=== PATIENT | female | born 1945 | race Caucasian/White ===

== ENCOUNTER 2018-04-07 20:20 | Emergency (ER) | payer SELFPAY ==
--- NOTE | 2018-04-07 20:56 | RAD REPORT ---
EXAM DESCRIPTION: CT - Ct Stroke Brain Wo Cont - 04/07/2018 8:50 pm CLINICAL HISTORY: NUMBNESS CVA symptomology. COMPARISON: No comparisons TECHNIQUE: All CT scans are performed using dose optimization technique as appropriate and may inclu de automated exposure control or mA/KV adjustment according to patient size. FINDINGS: No intracranial hemorrhage, hydrocephalus or extra-axial fluid collection.Mild generalized brain atrophy is present with mild periventricular and deep white matter chronic microvascular ische ignacia changes.No areas of brain edema or evidence of midline shift. Mild mucoperiosteal thickening affects both maxillary antra. The paranasal sinuses and mastoids are o therwise clear. The calvarium is intact. IMPRESSION: No acute intracranial abnormality.
[2018-04-07 21:14] LABS: Absolute Lymphocytes (CBC) 2.4 K/uL (0.7-4.9); Absolute Monocytes 0.6 K/uL (0.1-1.3); Absolute Neutrophil 4.1 K/uL (1.8-8.0); Basophils % 1.1 % (0-1.3); Eosinophils % 1.9 % (0-4.4); Hematocrit 37.9 % (36.0-45.0); Lymphocytes % 33.4 % (15.3-44.8); MPV 8.5 fL (7.6-11.3); Monocytes % 7.6 % (3.3-12.3); RBC Red Blood Cell Count 4.31 M/uL (3.86-4.86)
[2018-04-07 21:28] LABS: ALT/SGPT 24 U/L (12-78); AST/SGOT 24 U/L (15-37); Albumin 3.3 g/dL (3.4-5.0); Alkaline Phosphatase 86 U/L (45-117); Amylase Level 55 U/L (25-115); BUN Blood Urea Nitrogen 15 mg/dL (7-18); Bicarbonate 29 mmol/L (21-32); Bilirubin Direct 0.1 mg/dL (0-0.2); Bilirubin Total 0.6 mg/dL (0.2-1.0); Glucose Level 124 mg/dL (74-106); Lipase 105 U/L (73-393); Potassium 4.3 mmol/L (3.5-5.1); Protein, Total 7.4 g/dL (6.4-8.2); Sodium Level 143 mmol/L (136-145); Troponin (Emerg Dept Use Only) < 0.02 ng/mL (0.0-0.045)
--- NOTE | 2018-04-07 21:34 | RAD REPORT ---
EXAM DESCRIPTION: RAD - Chest Single View - 04/07/2018 9:00 pm CLINICAL HISTORY: numbness Chest pain. COMPARISON: Chest Single View dated 11/05/2016 FINDINGS: Portable technique limits examination quality. The lungs are grossly clear. The heart is normal in size. No displaced fractures. IMPRESSION: No acute intrathoracic process suspected.
[2018-04-07 21:35] LABS: Protime INR 0.97
--- NOTE | 2018-04-07 22:04 | EDPHYS ---
Physician Documentation [facility] Name: Cheyenne Gomez Age: 72 yrs Sex: Female : 1945 Arrival Date: 04/07/2018 Time: 20:24 Bed 15 Private MD: ED Physician Mendy Mcdonnell HPI: 04/07 20:57 This 72 yrs old Female presents to ER via Unassigned with complaints of Eye ma2 Problem, Numbness Of Face. 20:57 started seeing floaters in right eye x 1 hour, has had this before, has headache ma2 gradual mild similar to old headaches before.. has had diabetic retinopathy s/p laser therapy twice in the past.. stroke alert called d/t right facial numbness. however patient state she feels numbness around the right eye only no eye pain or facial pain or droop or weakness anywhere else . Onset: The symptoms/episode began/occurred gradually, 1 hour(s) ago. Duration: the symptoms are continuous. Associated signs and symptoms: Pertinent positives: headache, Pertinent negatives: chills, dizziness, ear ache, fever, runny nose. Severity of symptoms: At their worst the symptoms were mild in the emergency department the symptoms are unchanged. The patient has experienced similar episodes in the past. 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 - Social history:: Patient/guardian denies using alcohol, street drugs, The patient lives with family, Smoking status: Patient/guardian denies using tobacco. - Family history:: not pertinent. - Ebola Screening: : No symptoms or risks identified at this time. - Hospitalizations: : No recent hospitalization is reported. ROS: 20:57 Constitutional: Negative for fever, chills, and weight loss, Cardiovascular: Negative ma2 for chest pain, palpitations, and edema, Respiratory: Negative for shortness of breath, cough, wheezing, and pleuritic chest pain, Abdomen/GI: Negative for abdominal pain, nausea, diarrhea, and constipation. 20:57 MS/extremity: Positive for 20:57 Neuro: Positive for headache, Negative for altered mental status, dizziness, gait disturbance, hearing loss, loss of consciousness, numbness, seizure activity, visual changes, weakness. 20:57 All other systems are negative. Exam: 20:57 Visual Acuity: Visual acuity is within normal limits. ma2 20:57 Constitutional: This is a well developed, well nourished patient who is awake, alert, and in no acute distress. Head/Face: Normocephalic, atraumatic. Chest/axilla: Normal chest wall appearance and motion. Nontender with no deformity. No lesions are appreciated. Cardiovascular: Regular rate and rhythm with a normal S1 and S2. No gallops, murmurs, or rubs. Normal PMI, no JVD. No pulse deficits. Respiratory: Lungs have equal breath sounds bilaterally, clear to auscultation and percussion. No rales, rhonchi or wheezes noted. No increased work of breathing, no retractions or nasal flaring. Abdomen/GI: Soft, non-tender, with normal bowel sounds. No distension or tympany. No guarding or rebound. No evidence of tenderness throughout. Back: No spinal tenderness. No costovertebral tenderness. Full range of motion. MS/ Extremity: Pulses equal, no cyanosis. Neurovascular intact. Full, normal range of motion. Neuro: Awake and alert, GCS 15, oriented to person, place, time, and situation. Cranial nerves II-XII grossly intact. Motor strength 5/5 in all extremities. Sensory grossly intact. Cerebellar exam normal. Normal gait. Vital Signs: 20:25 BP 188 / 102; Pulse 100; Resp 16; Temp 98.6(O); Pulse Ox 96% on R/A; Weight 99.79 kg jb4 (R); Pain 2/10; 21:30 BP 158 / 86; Pulse 87; Resp 16; Pulse Ox 96% on R/A; jb4 22:24 BP 160 / 73; Pulse 74; Resp 16; Pulse Ox 98% on R/A; jb4 NIH Stroke Scale Scores: 20:30 NIHSS Score: 1 jb4 MDM: 20:55 Patient medically screened. ma2 20:57 Differential diagnosis: dd includes diabetic retinopathy, vitrous hemorrhage vs retinal ma2 detachment.. unlikely cluster headache.. discussed with dr. calvo opthalmologist who was here seeing another patient, who recommends seeing here tomorrow at 7 am at the office. 21:59 Differential diagnosis:. Differential diagnosis:. Data reviewed: vital signs, nurses ma2 notes, lab test result(s), radiologic studies. Counseling: I had a detailed discussion with the patient and/or guardian regarding: the historical points, exam findings, and any diagnostic results supporting the discharge/admit diagnosis, the presence of at least one elevated blood pressure reading (>120/80) during this emergency department visit, the need for outpatient follow up. Physician consultation: Lolis London MD discharges patient from the emergency department, want to see ptn in clinic in 10 hrs scheduled at 7 am . 04/07 20:56 Order name: Amylase, Serum wy2 04/07 20:56 Order name: Hepatic Function wy2 04/07 20:56 Order name: Lipase wy2 04/07 20:56 Order name: Troponin (emerg Dept Use Only) wy2 04/07 20:56 Order name: Basic Metabolic Panel wy2 04/07 20:56 Order name: CBC with Diff wy2 04/07 20:56 Order name: Protime (+inr); Complete Time: 21:49 ma2 04/07 20:56 Order name: Ptt, Activated; Complete Time: 21:49 wy2 04/07 20:57 Order name: Amylase Level; Complete Time: 21:49 EDMS 04/07 20:57 Order name: Liver (Hepatic) Function; Complete Time: 21:49 EDMS 04/07 20:57 Order name: Lipase; Complete Time: 21:49 EDMS 04/07 20:57 Order name: Troponin (Emerg Dept Use Only); Complete Time: 21:49 EDMS 04/07 20:57 Order name: Basic Metabolic Panel; Complete Time: 21:49 EDMS 04/07 20:57 Order name: CBC with Automated Diff; Complete Time: 21:49 EDMS 04/07 20:44 Order name: CT Stroke Brain w/o Contrast; Complete Time: 21:49 4 04/07 20:56 Order name: Chest Single View XRAY - STROKE; Complete Time: 21:49 2 04/07 20:56 Order name: EKG; Complete Time: 20:57 ma2 04/07 20:56 Order name: Accucheck; Complete Time: 20:58 ma2 04/07 20:56 Order name: Cardiac monitoring; Complete Time: 20:58 ma2 04/07 20:56 Order name: EKG - Nurse/Tech; Complete Time: 20:58 wy2 04/07 20:56 Order name: IV Saline Lock; Complete Time: 20:59 ma2 04/07 20:56 Order name: Labs collected and sent; Complete Time: 20:59 ma2 04/07 20:56 Order name: NPO; Complete Time: 20:59 ma2 04/07 20:56 Order name: O2 Per Protocol; Complete Time: 20:59 ma2 04/07 20:56 Order name: O2 Sat Monitoring; Complete Time: 20:59 wy2 04/07 20:56 Order name: Stroke Swallow Screen; Complete Time: 20:59 ma2 Administered Medications: No medications were administered Point of Care Testing: Blood Glucose: 20:25 Blood Glucose: 118 mg/dL; jb4 Ranges: Critical Glucose Levels:Adult <50 mg/dl or >400 mg/dl <40 mg/dl or >180 mg/dl Disposition: 04/07/18 22:02 Discharged to Home. Impression: Abnormal results of function studies of eye. - Condition is Stable. - Medication Reconciliation Form, Thank You Letter, Antibiotic Education, Prescription Opioid Use form. - Follow up: Lolis London MD; When: Tomorrow; Reason: Continuance of care. - Notes: you are scheduled to see dr. Garvey eye doctor at 7 am tomorrow NIH Stroke Scale - NIH Stroke Score Date: 04/07/2018 Time: 20:30 Total Score = 1 1a. Level of Consciousness (LOC) - 0(Alert) 1b. Level of Consciousness (LOC) (Year \T\ Age) - 0(Both) 1c. LOC Commands (Open \T\ Closes Eyes/[employer]) - 0(Both) 2. Best Gaze (Lateral Gaze Paresis) - 0(Normal) 3. Visual Field Loss - 0(No visual loss) 4. Facial Palsy - 0(Normal) 5a. Left Arm: Motor (10-second hold) - 0(No drift) 5b. Right Arm: Motor (10-second hold) - 0(No drift) 6a. Left Leg: Motor (5-second hold - always test supine) - 0(No drift) 6b. Right Leg: Motor (5-second hold - always test supine) - 0(No drift) 7. Limb Ataxia (finger/nose \T\ heel/chanel - test with eyes open) - 0(Absent) 8. Sensory Loss (pinprick arms/legs/face) - 1(Mild to moderate loss) 9. Best Language: Aphasia (description/naming/reading) - 0(No aphasia) 10. Dysarthria (speech clarity - read or repeat words) - 0(Normal) 11. Extinction and Inattention (visual/tactile/auditory/spatial/personal) - 0(No abnormality) Initials: jbJohanna Signatures: Dispatcher [employer] Wei Aguilar RN RN jb4 Mendy Mcdonnell MD MD ma2 Corrections: (The following items were deleted from the chart) 22:26 22:02 04/07/2018 22:02 Discharged to Home. Impression: Abnormal results of jb4 function studies of eye. Condition is Stable. Forms are Medication Reconciliation Form, Thank You Letter, Antibiotic Education, Prescription Opioid Use. Follow up: Lolis London; When: Tomorrow; Reason: Continuance of care. ma2
--- NOTE | 2018-04-07 22:04 | ER ---
Nurse's Notes [facility] Name: Cheyenne Gomez Age: 72 yrs Sex: Female : 1945 Arrival Date: 04/07/2018 Time: 20:24 Bed 15 Private MD: Diagnosis: Abnormal results of function studies of eye Presentation: 04/07 20:25 Presenting complaint: Patient states: I had a blood vessel pop in my eye and now I have jb4 had pain in my right eye and numbness under my right eye. 20:25 Transition of care: patient was not received from another setting of care. Onset of jb4 symptoms was April 07, 2018 at 19:35. Risk Assessment: Do you want to hurt yourself or someone else? Patient reports no desire to harm self or others. Initial Sepsis Screen: Does the patient meet any 2 criteria? HR > 90 bpm. Yes Does the patient have a suspected source of infection? No. Patient's initial sepsis screen is negative. Care prior to arrival: None. 20:25 Method Of Arrival: Wheelchair jb4 20:25 Acuity: KYLER 2 jb4 Triage Assessment: 20:25 General: Appears in no apparent distress. comfortable, Behavior is calm, cooperative, jb4 appropriate for age. Pain: Complains of pain in right eye Pain does not radiate. Pain currently is 2 out of 10 on a pain scale. EENT: No deficits noted. Neuro: Level of Consciousness is awake, alert, obeys commands, Oriented to person, place, time, situation, Director Pharmacology are equal bilaterally Moves all extremities. Full function Gait is unsteady, Speech is normal, Facial symmetry appears normal, Pupils are PERRLA, Sensation is lessened on the left side of the body.. Cardiovascular: Patient's skin is warm and dry. Rhythm is sinus rhythm. Respiratory: Airway is patent Respiratory effort is even, unlabored, Respiratory pattern is regular, symmetrical. GI: No signs and/or symptoms were reported involving the gastrointestinal system. : No signs and/or symptoms were reported regarding the genitourinary system. Derm: Skin is intact, Skin is pink, warm \T\ dry. Musculoskeletal: Circulation, motion, and sensation intact. Reports numbness in under right eye. 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 - Social history:: Patient/guardian denies using alcohol, street drugs, The patient lives with family, Smoking status: Patient/guardian denies using tobacco. - Family history:: not pertinent. - Ebola Screening: : No symptoms or risks identified at this time. - Hospitalizations: : No recent hospitalization is reported. Screenin:25 Abuse screen: Denies threats or abuse. Nutritional screening: No deficits noted. jb4 Tuberculosis screening: No symptoms or risk factors identified. Fall Risk IV access (20 points). Gait- Impaired (20 pts.). Total Kramer Fall Scale indicates Low Risk Score (25-44 pts). Fall prevention measures have been instituted. Side Rails Up X 2 Placed close to Nursing Station Frequent Obs/Assesments occuring Family Present and informed to notify staff if they need to leave bedside. 20:40 The patient passed the bedside swallow screening. Oral medications may be given as jb4 ordered. Contact Physician for further diet orders. Assessment: 20:25 General: See triage assessment.. jb4 21:30 Reassessment: Patient appears in no apparent distress at this time. Patient and/or jb4 family updated on plan of care and expected duration. Pain level reassessed. Patient is alert, oriented x 3, equal unlabored respirations, skin warm/dry/pink. Cardiovascular: Patient's skin is warm and dry. Rhythm is sinus rhythm. Respiratory: Airway is patent Respiratory effort is even, unlabored, Respiratory pattern is regular, symmetrical. 22:24 Reassessment: Patient appears in no apparent distress at this time. Patient and/or jb4 family updated on plan of care and expected duration. Pain level reassessed. Patient is alert, oriented x 3, equal unlabored respirations, skin warm/dry/pink. Discussed, D/c, F/u with pt and pt's , denies questions or concerns. Vital Signs: 20:25 BP 188 / 102; Pulse 100; Resp 16; Temp 98.6(O); Pulse Ox 96% on R/A; Weight 99.79 kg jb4 (R); Pain 2/10; 21:30 BP 158 / 86; Pulse 87; Resp 16; Pulse Ox 96% on R/A; jb4 22:24 BP 160 / 73; Pulse 74; Resp 16; Pulse Ox 98% on R/A; jb4 NIH Stroke Scale Scores: 20:30 NIHSS Score: 1 jb4 ED Course: 20:24 Patient arrived in ED. ag3 20:25 Arm band placed on left wrist. EKG completed in triage. Results shown to MD. EKG jb4 completed in triage. Results shown to MD. EKG completed in triage. Results shown to MD. 20:25 Patient has correct armband on for positive identification. Placed in gown. Bed in low jb4 position. Call light in reach. residential monitor on. Pulse ox on. NIBP on. 20:27 Wei Fagan RN is Primary Nurse. jb4 20:35 Initial lab(s) drawn, by ED staff, sent to lab. Inserted saline lock: 20 gauge in right jb4 antecubital area, using aseptic technique. Blood collected. 20:49 Mendy Mcdonnell MD is Attending Physician. ma2 20:50 CT Stroke Brain w/o Contrast In Process Unspecified. EDMS 21:00 Chest Single View XRAY - STROKE In Process Unspecified. EDMS 21:05 Triage completed. jb4 22:01 Lolis London MD is Referral Physician. ma2 22:24 No provider procedures requiring assistance completed. IV discontinued, intact, jb4 bleeding controlled. Administered Medications: No medications were administered Point of Care Testing: Blood Glucose: 20:25 Blood Glucose: 118 mg/dL; jb4 Ranges: Outcome: 22:02 Discharge ordered by . ma2 22:24 Discharged to home via wheelchair, with family. jb4 22:24 Condition: stable 22:24 Discharge instructions given to patient, family, Instructed on discharge instructions, follow up and referral plans. Demonstrated understanding of instructions, follow-up care. 22:26 Patient left the ED. jb4 NIH Stroke Scale - NIH Stroke Score Date: 04/07/2018 Time: 20:30 Total Score = 1 1a. Level of Consciousness (LOC) - 0(Alert) 1b. Level of Consciousness (LOC) (Year \T\ Age) - 0(Both) 1c. LOC Commands (Open \T\ Closes Eyes/[employer]) - 0(Both) 2. Best Gaze (Lateral Gaze Paresis) - 0(Normal) 3. Visual Field Loss - 0(No visual loss) 4. Facial Palsy - 0(Normal) 5a. Left Arm: Motor (10-second hold) - 0(No drift) 5b. Right Arm: Motor (10-second hold) - 0(No drift) 6a. Left Leg: Motor (5-second hold - always test supine) - 0(No drift) 6b. Right Leg: Motor (5-second hold - always test supine) - 0(No drift) 7. Limb Ataxia (finger/nose \T\ heel/chanel - test with eyes open) - 0(Absent) 8. Sensory Loss (pinprick arms/legs/face) - 1(Mild to moderate loss) 9. Best Language: Aphasia (description/naming/reading) - 0(No aphasia) 10. Dysarthria (speech clarity - read or repeat words) - 0(Normal) 11. Extinction and Inattention (visual/tactile/auditory/spatial/personal) - 0(No abnormality) Initials: jb4 Signatures: Dispatcher [employer] Wei Aguilar, RN RN jb4 Mendy Mcdonnell MD MD ma2 Tisha Rosenberg ag3
[2018-04-07 23:00] VITALS: TEMP 98.6
[2018-04-07 23:03] VITALS: BP 160/73; O2SAT 98
--- NOTE | 2018-04-08 06:57 | EKG ---
Test Date: 2018-04-07 Test Time: 21:06:13 Rehabilitation Therapist: RR MEASUREMENT RESULTS: Intervals: Rate: 90 NH: 162 QRSD: 76 QT: 380 QTc: 464 [place]: P: 33 NH: 162 QRS: -38 T: 54 INTERPRETIVE STATEMENTS: Normal sinus rhythm Left axis deviation Inferior infarct, age undetermined Abnormal ECG Compared to ECG 12/23/2016 23:00:19 Left-axis deviation now present Myocardial infarct finding now present Atrial premature complex(es) no longer present Electronically Signed On 04-08-18 06:56:31 [employer] ADMINISTRATOR by Marcus Tucker
== END 2018-04-07 22:26 | disposition home or self-care (01) ==
LOC: ER 20:20
DX: R94.118 Abnormal results of other function studies of eye (principal); E11.9 Type 2 diabetes mellitus without complications; E78.5 Hyperlipidemia, unspecified; F32.9 Major depressive disorder, single episode, unspecified; Z79.4 Long term (current) use of insulin
CPT/HCPCS: 36415; 70450; 71045; 80048; 80076; 82150; 82962; 83690; 84484; 85025; 85610; 85730; 93005; 99284

== ENCOUNTER 2021-11-22 23:22 | Inpatient (IN) | payer OTHER ==
--- OUTSIDE RECORDS SUMMARY | 2021-11-22 23:27 | XMS REPORT | Continuity of Care Document ---
:[address] [facility] t Address [address] [place] [address] Care Team Providers Name Role Phone Felicia Worthington MD Primary Care Physician Felicia Worthington MD Attending Clinician Gay Alexandre Attending Clinician Unavailable Petty Calloway MD Attending Clinician FELICIA WORTHINGTON Admitting Clinician Unavailable Payers Payer Name Policy Type Policy Number Effective Date Expiration Date S ource Problems Condition Condition Condition Status Onset Resolution Last Treating Co mments Source Name Details Category Date Date Treatment Clinician Date Diverticul Diverticul Disease Active U nivers a of colon a of colon 8-24 it y of 00:00: [address] Vaginal Vaginal Disease Active [facility] yeast yeast 8-24 [place] [address] [place] [address] Chronic Chronic Disease Active Univers allergic allergic 5-11 ity of rhinitis rhinitis 00:00: [address] Multiple Multiple Disease Active Unive rs adenomatou adenomatou 2-09 it y of s polyps s polyps 00:00: [address] Obesity Obesity Disease Active Univers (BMI (BMI 2-09 ity of 30-39.9) 30-39.9) 00:00: [place] 00 Medical Branch Status Status Disease Active Univers post right post right 2 it y of hemicolect hemicolect [place] tr[place] tr[place] 00 Medical Branch Polyp, Polyp, Disease Active Univers colonic colonic 12-18 ity of 00:00: 00 Medical Branch Polyp of Polyp of Disease Active Overview: [place] colon, colon, 9 Formattin ity of unspecifie unspecifie 00:00: g of this [place] d part of d part of 00 note Medi evetr colon, colon, might be Branch unspecifie unspecifie different d type d type from the original. Added automatic ally from request for surgery [id number] History of History of Disease Active Overview : Univers colon colon 09-28 Formattin ity of polyps polyps 00:00: g of this [place] 00 note Medical might be Branch different from the original. 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 27 ity of depression depression 00:00: [place] 00 [place] Irregular Irregular Disease Active Uni vers heart beat heart beat 08-23 it y of 00:00: Medical Branch Premature Premature Disease Active Uni vers ventricula ventricula 08-23 it y of r beat r beat 00:00: 00 Medical Branch Hypomagnes Hypomagnes Disease Active U nivers emia emia 5-27 ity of 00:00: Medical Branch Diabetic Diabetic Disease Active Unive rs polyneurop polyneurop 5-20 it y of athy athy 00:00: [place] associated associated 00 Me dical with type with type Bran ch 2 diabetes 2 diabetes mellitus mellitus Grief Grief Disease Active Univers 4-22 ity of 00:00: [place] [facility] Abnormalit Abnormalit Disease Active U nivers y of gait y of gait -22 ity of 00:00: [place] 00 Medical Branch Other Other Disease Active Univers specified specified 4- ity of extrapyram extrapyram 00:00: [place] idal and idal and 00 Medica l movement movement Branch disorders disorders Senile Senile Disease Active Univers osteoporos osteoporos 4-22 it y of is is 00:00: [place] 00 Medical Branch Dyslipidem Dyslipidem Disease Active U ulises ia ia 8-17 ity of 00:00: [place] 00 Medical Branch Panic Panic Disease Active 2018-03 Univers attack attack 2-11 ity of 00:00: [place] 00 Medical Branch Diabetic Diabetic Disease Active 2018-03 Overview: [place] eye exam eye exam 2-04 Formattin ity of 00:00: g of this [place] 00 note Medical might be Branch different from the original. Added automatic ally from request for surgery [id number] Type 2 Type 2 Disease Active 2018-03 Univers diabetes diabetes 130 ity of mellitus mellitus 00:00: [place] with with 00 Medical complicati complicati Br anch on, with on, with long-term long-term current current use of use of insulin insulin Hyperlipid Hyperlipid Disease Active 2018-03 U ulises emia, emia, 130 ity of unspecifie unspecifie 00:00: [place] d d 00 Medical hyperlipid hyperlipid Br anch emia type emia type Essential Essential Disease Active 2018-03 Uni vers hypertensi hypertensi 30 it y of on on 00:00: [place] 00 Medical Branch Depression Depression Disease Active 2018-03 U ulises , , 130 ity of unspecifie unspecifie 00:00[place] d 00 Medical depression depression Br anch type type Need for Need for Disease Active 2018-03 Unive rs influenza influenza -30 ity of vaccinatio vaccinatio 00:00[place] 00 Medical Branch Need for Need for Disease Active 2018-03 Unive rs 23-polyval 23-polyval 30 it y of ent ent 00:00: [place] pneumococc pneumococc 00 Me dical al al Branch polysaccha polysaccha ride ride vaccine vaccine Breast Breast Disease Active 2018-03 Univers cancer cancer 1-30 ity of screening screening 00:00: [place] 00 Medical mammogram mammogram Bran ch Need for Need for Disease Active 2018-03 Unive rs hepatitis hepatitis 30 ity of C C 00:00: [place] screening screening 00 Medi evert test test Branch Allergies, Adverse Reactions, Alerts Allergy Allergy Status Severity Reaction(s) Onset Inactive Treating Comm ents Source Name Type Date Date Clinician Morphine Propensi Active Other - See U nivers ty to comments 12-20 ity of adverse 00:00: [place] reaction 00 Medical s Branch No Known DA Active [facility] [place] 00:00: [address] No Known DA Active U [facility] Allergie 09-14 [place] 00:00: [address] Social History Social Habit Start Date Stop Date Quantity Comments Source History SDOH University o f Alcohol Std [place] Medical Drinks Branch History SDOH University o f Alcohol Binge [place] Medic al Branch History SDCA University o f Alcohol Comment [place] Med ical Branch Tobacco use and 2021-11-20 2021-11-20 Smokeless tobacco Un iversity of exposure 00:00:00 00:00:00 non-user [facility] Alcohol intake 2021-11-20 2021-11-20 Lifetime University of 00:00:00 00:00:[address] non-dr[address] [facility] (finding) Branch Exposure to 2021-10-28 2021-11-07 Not sure [facility] SARS-CoV-2 00:00:00 10:19:00 [facility] (event) Branch History SDOH 2018-09-08 2018-09-08 1 University o f Alcohol Frequency 00:00:00 00:00:00 [facility] edical [place] Sex [birth year] Universit y of 00:00:00 00:00:00 [facility] Smoking Status Start Date Stop Date Source Never smoked tobacco [facility] Medications Ordered Filled Start Stop Current Ordering Indication Dosage Frequency Signature Comments Components Source Medication Medication Date Date Medication? Clinician (SIG) Name Name fluconazole Yes [id number] 200mg Take 1 Univers (DIFLUCAN) 8-24 tablet by ity of 200 mg 00:00: mouth in [place] tablet 00 the Medical morning. Branch fluconazole Yes [id number] 200mg Take 1 Univers (DIFLUCAN) 8-24 tablet by ity of 200 mg 00:00: mouth in [place] tablet 00 the Medical morning. Branch LEVEMIR Yes [id number] 50U INJECT 50 U nivers FLEXTOUCH 8-19 UNITS ity of U-100 00:00: UNDER THE [place] INSULN 100 00 SKIN 2 Medical unit/mL (3 (TWO) Branch mL) TIMES injection DAILY WITH MEALS. LEVEMIR Yes [id number] 50U INJECT 50 U nivers FLEXTOUCH 8-19 UNITS ity of U-100 00:00: UNDER THE [place] INSULN 100 00 SKIN 2 Medical unit/mL (3 (TWO) Branch mL) TIMES injection DAILY WITH MEALS. phenazopyri Yes Take by Uni vers dine HCl 8-12 mouth. ity of (AZO ORAL) 09:06: [place] [address] Medical Branch calcium Yes 1{tbl} Take 1 Univer s carbonate/v 8-12 tablet by ity of itamin D3 09:06: mouth [place] (VITAMIN 53 daily. Medical D-3 ORAL) Branch multivit-mi Yes 1{tbl} Take 1 [place] n/iron/foli 8-12 tablet by ity of c/lutein 09:06: mouth [place] (CENTRUM 53 daily. Medical SILVER Branch WOMEN ORAL) cyanocobala Yes 1{tbl} Take 1 [place] min, 8-12 tablet by ity of vitamin 09:06: mouth [place] B-12, 53 daily. Medical (VITAMIN Branch B12 ORAL) fluticasone Yes 1{spray Use 1 [place] propionate 8-12 } [place] in ity o f (FLONASE 09:06: each [place] NASAL) 53 nostril Medical daily. Branch loratadine Yes 10mg Take 10 mg U nivers (CLARITIN 8-12 by mouth ity of ORAL) 09:06: daily. As [place] 53 needed Medical Branch aspirin 81 Yes 81mg Take 81 mg U nivers mg EC 8-12 by mouth ity of tablet 09:06: in the [place] 53 morning. Medical Branch FIBER Yes 1{tbl} Take 1 Univers CHOICE ORAL 8-12 tablet by ity of 09:06: mouth. [place] [address] Medical Branch phenazopyri Yes Take by Uni vers dine HCl 8-12 mouth. ity of (AZO ORAL) 09:06: [place] [address] Medical Branch calcium Yes 1{tbl} Take 1 Univer s carbonate/v 8-12 tablet by ity of itamin D3 09:06: mouth [place] (VITAMIN 53 daily. Medical D-3 ORAL) Branch multivit-mi Yes 1{tbl} Take 1 [place] n/iron/foli 8-12 tablet by ity of c/lutein 09:06: mouth [place] (CENTRUM 53 daily. Medical SILVER Branch WOMEN ORAL) cyanocobala Yes 1{tbl} Take 1 [place] min, 8-12 tablet by ity of vitamin 09:06: mouth [place] B-12, 53 daily. Medical (VITAMIN Branch B12 ORAL) fluticasone Yes 1{spray Use 1 [place] propionate 8-12 } [place] in ity o f (FLONASE 09:06: each [place] NASAL) 53 nostril Medical daily. Branch loratadine Yes 10mg Take 10 mg U nivers (CLARITIN 8-12 by mouth ity of ORAL) 09:06: daily. As [place] 53 needed Medical Branch aspirin 81 Yes 81mg Take 81 mg U nivers mg EC 8-12 by mouth ity of tablet 09:06: in the [place] 53 morning. Medical Branch FIBER Yes 1{tbl} Take 1 Univers CHOICE ORAL 8-12 tablet by ity of 09:06: mouth. [place] [address] Medical Branch GABAPENTIN 0 Yes [id number] TAKE 1 Univers 100 mg 7-15 CAPSULE BY ity of capsule 00:00: MOUTH [place] 00 THREE Medical TIMES A Branch DAY GABAPENTIN 0 Yes [id number] TAKE 1 Univers 100 mg 7-15 CAPSULE BY ity of capsule 00:00: MOUTH [place] 00 THREE Medical TIMES A Branch DAY LISINOPRIL- 0 Yes [id number] TAKE 1 Univers HYDROCHLORO 6-02 TABLET BY ity of THIAZIDE 00:00: MOUTH [place] 20-25 mg 00 EVERY DAY Medica l per tablet Branch FLUOXETINE 2021-0 Yes [id number] TAKE 1 Uni vers 20 mg 6-02 TABLET BY ity of tablet 00:00: MOUTH [place] 00 EVERY DAY Medical Branch LISINOPRIL- 0 Yes [id number] TAKE 1 Univers HYDROCHLORO 6-02 TABLET BY ity of THIAZIDE 00:00: MOUTH [place] 20-25 mg 00 EVERY DAY Medica l per tablet Branch FLUOXETINE 2022-0 Yes [id number] TAKE 1 Uni vers 20 mg 6-02 TABLET BY ity of tablet 00:00: MOUTH [place] 00 EVERY DAY Medical Branch sodium,pota 2021-0 Yes [id number] Take as Univers ssium,mag 5-02 directed ity of sulfates 00:00: [place] 17.5-3.13-1 00 Medical .6 gram Branch sodium,pota 2021-0 Yes [id number] Take as Univers ssium,mag 5-02 directed ity of sulfates 00:00: [place] 17.5-3.13-1 00 Medical .6 gram Branch metformin 2021-0 Yes [id number] 1000mg Take 2 Univers ER 500 mg 2-09 tablets by ity of 24 hr 00:00: mouth 2 [place] tablet 00 (two) Medical times Branch daily with meals. insulin 2021-0 Yes [id number] 10U inject Univ ers aspart 2- 10-30 ity of U-100 00:00: Units [place] (NOVOLOG 00 under the Medica l FLEXPEN skin 3 Branch U-100 (three) INSULIN) times 100 unit/mL daily (3 mL) before injection meals. pravastatin 2021-0 Yes [id number] 20mg Take 1 Univers 20 mg 2-09 tablet by ity of tablet 00:00: mouth at [place] 00 bedtime. Medical Branch amLODIPine 2021-0 Yes [id number] 5mg Take 1 U nivers 5 mg tablet 2-09 tablet by ity of 00:00: mouth [place] 00 daily. Medical Branch metformin 2021-0 Yes [id number] 1000mg Take 2 Univers ER 500 mg 2-09 tablets by ity of 24 hr 00:00: mouth 2 [place] tablet 00 (two) Medical times Branch daily with meals. insulin 2021-0 Yes [id number] 10U inject Univ ers aspart 2- 10-30 ity of U-100 00:00: Units [place] (NOVOLOG 00 under the Medica l FLEXPEN skin 3 Branch U-100 (three) INSULIN) times 100 unit/mL daily (3 mL) before injection meals. pravastatin 2021-0 Yes [id number] 20mg Take 1 Univers 20 mg 2-09 tablet by ity of tablet 00:00: mouth at [place] 00 bedtime. Medical Branch amLODIPine 2021-0 Yes [id number] 5mg Take 1 U nivers 5 mg tablet 2-09 tablet by ity of 00:00: mouth [place] 00 daily. Medical Branch Miscellaneo 2020-03 Yes [id number] Pt [place] [facility] 04-03 requesting ity of Supply Misc 00:00: a rx for [place] 00 Reli On 6 Medical mm x 31 Branch Gauge (15/64" x 0.25 mm). Please provide. For dx E11.9. takes 4 injections of insulin a day. Miscellaneo 2020-03 Yes [id number] Pt [place] [facility] 04-03 requesting ity of Supply Misc 00:00: [place] for [place] 00 Reli On 6 Medical mm x 31 Branch Gauge (15/64" x 0.25 mm). Please provide. For dx E11.9. takes 4 injections of insulin a day. traMADoL 50 Yes [id number] 50mg Take 1 Univ ers mg tablet 9-24 tablet by ity o f 00:00: mouth [place] 00 every 6 Medical (six) Branch hours as needed for Pain (scale 7-10). Indication s: acute pain traMADoL 50 Yes [id number] 50mg Take 1 Univ ers mg tablet 9-24 tablet by ity o f 00:00: mouth [place] 00 every 6 Medical (six) Branch hours as needed for Pain (scale 7-10). Indication s: acute pain blood sugar 2020-0 Yes Use as Univ ers diagnostic 2-05 directed ity o f (ACCU-CHEK 00:00: TID DX: [place] GUIDE) 00 E11.8 Medical strip Branch Blood-Gluco 2020-0 Yes Use as Univ ers se Meter 2-05 directed ity of (ACCU-CHEK 00:00: to check [place] as GUIDE 00 blood Medical GLUCOSE sugar Branch METER) Mis daily DX: E11.8 lancets 2020-0 Yes Use as Univers (ULTRA THIN 2-05 directed ity of LANCETS) 30 00:00: TID DX: [place] as gauge Misc 00 E11.8 Medical Branch blood sugar 2020-0 Yes Use as Univ ers diagnostic 2-05 directed ity o f (ACCU-CHEK 00:00: TID DX: [place] GUIDE) 00 E11.8 Medical strip Branch Blood-Gluco 2020-0 Yes Use as Univ ers se Meter 2-05 directed ity of (ACCU-CHEK 00:00: to check [place] GUIDE 00 blood Medical GLUCOSE sugar Branch METER) Misc daily DX: E11.8 lancets Yes Use as Univers (ULTRA THIN 2-05 directed ity of LANCETS) 30 00:00: TID DX: [place] as gauge Mis 00 E11.8 Medical Branch Betamethaso Yes Apply 2-3g Univers ne Valerate 4-30 to the ity of 0.12 % foam 00:00: affected [place] 00 area Medical 2-4x/daily Branch or as directed. Max 10 g/day Betamethaso Yes Apply 2-3g Univers ne Valerate 4-30 to the ity of 0.12 % foam 00:00: affected [place] area Medical 2-4x/daily Branch or as directed. Max 10 g/day Immunizations Ordered Filled Immunization Date Status Comments [facility] Immunization Name Name Pneumococcal 2021-08-07 Completed University o f Polysaccharide, 00:00:00 [place] Med ical PPSV23 (PNEUMOVAX) Branch Pneumococcal 2021-08-07 Completed University o f Polysaccharide, 00:00:00 [place] Med ical PPSV23 (PNEUMOVAX) Branch SARS-COV-2 COVID-19 2021-01-16 Completed Unive rsity of PFIZER VACCINE 00:00:00 [facility] SARS-COV-2 COVID-19 2021-01-16 Completed Unive rsity of PFIZER VACCINE 00:00:00 [facility] Influenza High Dose 2020-12-01 Completed Unive rsity of 00:00:00 [facility] Influenza High Dose 2020-12-01 Completed Unive rsity of 00:00:00 [facility] SARS-COV-2 COVID-19 2020-06-12 Completed Unive rsity of PFIZER VACCINE 00:00:00 [facility] SARS-COV-2 COVID-19 2020-06-12 Completed Unive rsity of PFIZER VACCINE 00:00:00 [facility] SARS-COV-2 COVID-19 2020-05-22 Completed Unive rsity of PFIZER VACCINE 00:00:00 [facility] SARS-COV-2 COVID-19 2020-05-22 Completed Unive rsity of PFIZER VACCINE 00:00:00 [facility] Influenza High Dose 2020-01-12 Completed Unive rsity of Quad 00:00:00 [facility] Influenza High Dose 2020-01-12 Completed Unive rsity of Quad 00:00:00 [facility] TDAP 2019-02-23 Completed University of 00:00:00 [facility] Influenza High Dose 2019-02-23 Completed Unive rsity of 00:00:00 [facility] Pneumococcal 13 2019-02-23 Completed Universit y of Conjugate, PCV13 00:00:00 [facility] dical (Prevnar 13) Branch TDAP 2019-02-23 Completed University of 00:00:00 [facility] Influenza High Dose 2019-02-23 Completed Unive rsity of 00:00:00 [facility] Pneumococcal 13 2019-02-23 Completed Universit y of Conjugate, PCV13 00:00:00 [facility] dical (Prevnar 13) Branch Vital Signs Vital Name Observation Time Observation Value Comments Source Systolic blood 2021-11-20 18:06:00 132 mm[Hg] Univer sity of pressure [facility] Diastolic blood 2021-11-20 18:06:00 69 mm[Hg] Unive rsity of pressure [facility] Heart rate 2021-11-20 18:04:00 85 /min [facility] Body temperature 2021-11-20 18:04:00 36.94 [facility] Respiratory rate 2021-11-20 18:04:00 18 /min [facility] Body height 2021-11-20 18:04:00 175.3 cm [facility] Body weight 2021-11-20 18:04:00 96.253 kg [facility] BMI 2021-11-20 18:04:00 31.34 kg/m2 [facility] Oxygen saturation in 2021-11-20 18:04:00 97 /min [facility] Arterial blood by [facility] Pulse oximetry Branch Procedures This patient has no known procedures. Encounters Start End Encounter Admission Attending Care Care Encounter Source Date/Time Date/Time Type Type Clinicians Facility Department ID 2021-11-20 2021-11-20 Office Ander CTJOSE [id number] [facility] 13:20:00 13:34:38 Visit Felicia PICKERING [id number] i ty michael JOHNSON [id number] Abhay tolliver PROFESSIO [id number] Ar dical NAL 044 [facility] 2020-09-15 2020-09-15 Outpatient MANUEL Haddad SURG [id number] 11-16 [facility] 04:53:00 04:53:00 Gay [id number] [facility] 2020-08-23 2020-08-23 Telemedici [facility] [id number] 08:26:49 10:17:50 ne Visit Felicia Pickering [id number] [place] [id number] Professio [phone] nal [address] [place] [address] 2020-08-17 2020-08-17 Telephone [facility] [id number] 00:00:00 00:00:00 Petty Pickering [id number] [place] [id number] Professio [phone] [address] Results Test Description Test Time Test Comments Results Result Comments Source GLUCOSE BEDSIDE TESTING 2020-09-15 10:31:00 Test Item Value Reference Range Interpretation Comme nts GLUCOSE BEDSIDE TESTING (test code = GLUBED) 269 MG/DL 60-99 H GLUCOSE BEDSIDE [id number] 08:06:00 Test Item Value Reference Range Interpretation Comments GLUCOSE BEDSIDE TESTING (test code 328 MG/DL 60-99 HH = GLUBED) BASIC METABOLIC [id number] 06:25:00 Test Item Value Reference Range Interpretation Comments SODIUM (test code = 137 MMOL/L 137-145 N NA) POTASSIUM (test code = 4.0 MMOL/L 3.5-5.1 N K) CHLORIDE (test code = 103 MMOL/L 98-107 N CL) CARBON DIOXIDE (test 22 MMOL/L 22-30 N code = CO2) ANION GAP (test code = 16 MMOL/L 14-24 N GAP) GLUCOSE (test code = 445 MG/DL 74-106 HH CALLED TO ALYSSA SAWYER) READBACK ON AT 0621 BY Óscar Benz BLOOD UREA NITROGEN 35 MG/DL 7-17 H (test code = BUN) GLOMERULAR FILTRATION 37 Report ing units: RATE (test code = GFR) ml/mi n/1.73 m2 (Modified MDRD Formula)Referen ce Range: > or = 6 0 ml/min/1.73 m2 CREATININE (test code 1.40 MG/DL 0.52-1.04 H = CREAT) CALCIUM (test code = 9.3 MG/DL 8.4-10.2 N CA) Comments to Installation Superintendent: RN TO COLLECTLIPID PROFILE (CORONARY RISK)2020-09-15 06:25:00 Test Item Value Reference Range Interpretation Comments TRIGLYCERIDES (test 391 MG/DL TRIGLYCE RIDES code = TRIG) REFERENCE RANGE:Normal: < 150 mg/dLBorderline High: 150-199 mg/dLHi gh: 200-499 mg/dLVe ry High: >=500 mg/ dL CHOLESTEROL (test code 175 MG/DL <200 = CHOL) HDL CHOLESTEROL (test 27 MG/DL 40-59 L code = HDL) LIPOPROTEIN LDL (test 90 MG/DL 0-99 N OPTIM AL.........<100 code = LDL) mg/dLNEAR OPTIMAL/ABOVE OPTIMAL........ .100-12 9 mg/dL BORDERL INE HIGH.........13 0-159 mg/dL HIGH.........16 0-189 mg/dL VERY HIGH.........>/ = 190 mg/dL Comments to Installation Superintendent: RN TO [id number] 06:25:00 Test Item Value Reference Range Interpretation Comments MAGNESIUM (test code = MAG) 1.5 MG/DL 1.6-2.3 L Comments to Installation Superintendent: RN TO COLLECTPROTHROMBIN [id number] 06:22:00 Test Item Value Reference Range Interpretation Comments PROTHROMBIN TIME 10.8 SECONDS 9.5-12.7 N PATIENT (test code = PTP) INTERNATIONAL NORMAL 1.0 0.86-1.14 N The INR is to be RATIO (test code = used only for INR) monitoring oral anticoagulantth erap y. INDICATION I NR VALUE ---- ---- ---- -------1. Prophylaxis, de ep venous thrombos is, including high risk surgery. 2.0 - 3.0 2. Prophylaxis, deep venous thrombosis, hip surgery, treatm ent for deep venous thrombosis or pulmonary prevention of systemic emboli sm in patients wit h valvular heart disease, atrial fibrillation, tissue heart va lve, or acute myocar dial infarction. 2.0 - 3.0 3. Beef Grader al prosthesis hear t valves, recurr ent systemic emboli sm. 3.0 - 4.5 Comments to Installation Superintendent: RN TO COLLECTPTT [id number] 06:22:00 Test Item Value Reference Range Interpretation Comments PTT ACTIVATED (test code = APTT) 34.4 SECONDS 25.1-36.5 N Comments to Installation Superintendent: RN TO COLLECTLIPID PROFILE (CORONARY RISK)2020-09-15 06:21:00 Test Item Value Reference Range Interpretation Comments TRIGLYCERIDES (test 391 MG/DL TRIGLYCE RIDES code = TRIG) REFERENCE RANGE:Normal: < 150 mg/dLBorderline High: 150-199 mg/dLHi gh: 200-499 mg/dLVe ry High: >=500 mg/ dL CHOLESTEROL (test code 175 MG/DL <200 = CHOL) HDL CHOLESTEROL (test 27 MG/DL 40-59 L code = HDL) LIPOPROTEIN LDL (test MG/DL 0-99 code = LDL) Comments to Installation Superintendent: RN TO [id number] 06:21:00 Test Item Value Reference Range Interpretation Comments MAGNESIUM (test code = MAG) 1.5 MG/DL 1.6-2.3 L Comments to Installation Superintendent: RN TO COLLECTBASIC METABOLIC [id number] 06:21:00 Test Item Value Reference Range Interpretation Comments SODIUM (test code = 137 MMOL/L 137-145 N NA) POTASSIUM (test code = 4.0 MMOL/L 3.5-5.1 N K) CHLORIDE (test code = 103 MMOL/L 98-107 N CL) CARBON DIOXIDE (test 22 MMOL/L 22-30 N code = CO2) ANION GAP (test code = 16 MMOL/L 14-24 N GAP) GLUCOSE (test code = 445 MG/DL 74-106 HH CALLED TO ALYSSA SAWYER) READBACK ON AT 0621 BY Kwake,Óscar er BLOOD UREA NITROGEN 35 MG/DL 7-17 H (test code = BUN) GLOMERULAR FILTRATION 37 Report ing units: RATE (test code = GFR) ml/mi n/1.73 m2 (Modified MDRD Formula)Referen ce Range: > or = 6 0 ml/min/1.73 m2 CREATININE (test code 1.40 MG/DL 0.52-1.04 H = CREAT) CALCIUM (test code = 9.3 MG/DL 8.4-10.2 N CA) Comments to Installation Superintendent: RN TO COLLECTCBC W/AUTO [id number] 06:05:00 Test Item Value Reference Range Interpretation Comments WHITE BLOOD CELL (test code = 6.0 K/MM3 3.8-9.8 N WBC) RED BLOOD CELL (test code = 3.35 M/MM3 3.58-4.97 L RBC) HEMOGLOBIN (test code = HGB) 10.2 G/DL 11.2-14.9 L HEMATOCRIT (test code = HCT) 30.6 % 33.2-43.5 L MEAN CELL VOLUME (test code = 91 fL 80.7-99.1 N MCV) MEAN CELL HGB (test code = MCH) 30.4 pg 27.0-34.1 N MEAN CELL HGB CONCETRATION 33.3 % 32.2-35.7 N (test code = MCHC) RED CELL DISTRIBUTION WIDTH 15.7 % 12.1-15.2 H (test code = RDW) PLATELET COUNT (test code = 141 K/MM3 129-368 N PLT) MEAN PLATELET VOLUME (test code 10.9 fl 7.4-10.4 H = MPV) NEUTROPHIL % (test code = NT%) 57.4 % 43-75 N IMMATURE GRANULOCYTE % (test 1.2 % 0.0-2.0 N code = IG%) LYMPHOCYTE % (test code = LY%) 27.8 % 14-44 N MONOCYTE % (test code = MO%) 7.8 % 4-13 N EOSINOPHIL % (test code = EO%) 5.0 % 0-6 N BASOPHIL % (test code = BA%) 0.8 % 0-2 N NUCLEATED RBC % (test code = 0.0 % 0-1.0 N NRBC%) NEUTROPHIL # (test code = NT#) 3.47 K/mm3 2.0-7.6 N IMMATURE GRANULOCYTE # (test 0.07 x10 3/uL 0-0.03 H code = IG#) LYMPHOCYTE # (test code = LY#) 1.68 K/mm3 1.0-3.8 N MONOCYTE # (test code = MO#) 0.47 K/mm3 0.1-0.8 N EOSINOPHIL # (test code = EO#) 0.30 K/mm3 0.0-0.2 H BASOPHIL # (test code = BA#) 0.05 K/mm3 0.0-0.2 N NUCLEATED RBC # (test code = 0.00 K/mm3 0.0-0.1 N NRBC#) Comments to Installation Superintendent: RN TO COLLECT
[2021-11-23 00:12] LABS: Absolute Lymphocytes (CBC) 0.7 K/uL (0.7-4.9); Hematocrit 29.9 % (36.0-45.0); Lymphocytes % 4.4 % (15.3-44.8); MCV 89.7 fL (80-100); RBC Red Blood Cell Count 3.33 M/uL (3.86-4.86)
[2021-11-23 00:32] LABS: Albumin 3.4 g/dL (3.4-5.0); Bilirubin Total 1.1 mg/dL (0.2-1.0); Potassium 4.8 mmol/L (3.5-5.1); Protein, Total 7.3 g/dL (6.4-8.2); Troponin High Sensitivity 11.4 pg/mL (<58.9)
[2021-11-23 00:44] LABS: Protime INR 1.14
[2021-11-23 01:54] LABS: Urine Blood 2+ (Negative); Urine Glucose 1+ (Negative); Urine Protein 3+ (Negative); Urine pH 5.5 (5.0-7.0)
[2021-11-23 02:15] LABS: Urine Bacteria Loaded /HPF (<20); Urine Mucus 2+ /HPF (None Seen); Urine RBC <5 /HPF (None Seen)
--- NOTE | 2021-11-23 03:47 | ER ---
Nurse's Notes [facility] Name: Cheyenne Gomez Age: 76 yrs Sex: Female : 1945 Arrival Date: 11/22/2021 Time: 23:28 Bed 8 Private MD: Diagnosis: Pyelonephritis acute;Sepsis without end organ dysfunction;Nausea with vomiting, unspecified Presentation: 11/22 23:30 Chief complaint: EMS states: Pt called EMS for vomiting blood, it was pieces of jb4 cherries. He tried to get out of bed, slipped on the blanket and eased herself to the floor. She had a temp of 100.1, was given 1g of IV tylenol, 300 ml of NS, and 10mg of reglan. Her lungs were CTA prior to medication adminstration, after she developed diminished breath sounds on the right. She has a 20g in the right AC, last bgl was 301. Coronavirus screen: Client presents with at least one sign or symptom that may indicate coronavirus-19. Standard/surgical mask placed on the client. Provider contacted for isolation considerations. Ebola Screen: No symptoms or risks identified at this time. Initial Sepsis Screen: Does the patient meet any 2 criteria? RR > 20 per min. HR > 90 bpm. Yes Does the patient have a suspected source of infection? Yes: Dysuria/Frequency/Urgency/UTI. Risk Assessment: Do you want to hurt yourself or someone else? Patient reports no desire to harm self or others. Onset of symptoms was November 22, 2021. Transition of care: patient was not received from another setting of care. 23:30 Method Of Arrival: EMS: [facility] jb4 23:30 Acuity: KYLER 3 jb4 Historical: - Allergies: 23:40 Codeine; jb4 23:40 Morphine; jb4 - PMHx: 23:40 Depression; Diabetes - NIDDM; Hyperlipidemia; jb4 - PSHx: 23:40 Partial colon removal; colonoscopy; jb4 - Immunization history:: Adult Immunizations up to date. - Social history:: Smoking status: Patient denies any tobacco usage or history of. Screenin:30 Abuse screen: Denies threats or abuse. Nutritional screening: No deficits noted. jb4 Tuberculosis screening: No symptoms or risk factors identified. Fall Risk Fall in past 12 months (25 points). IV access (20 points). Total Kramer Fall Scale indicates High Risk Score (45 or more points). Fall prevention measures have been instituted. Side Rails Up X 2 Placed Close to Nursing Station Frequent Obs/Assessments Occuring Family Present and informed to notify staff if the need to leave the bedside As available patient and family educated on Fall Prevention Program and Strategies. Assessment: 11/23 00:00 General: Appears in no apparent distress. uncomfortable, ill, Behavior is calm, jb4 cooperative, appropriate for age. Pain: Denies pain. Neuro: Level of Consciousness is awake, alert, obeys commands, Oriented to person, place, time, situation. Cardiovascular: Patient's skin is warm and dry. Respiratory: Airway is patent Respiratory effort is even, unlabored, Respiratory pattern is symmetrical, tachypnea. GI: Abdomen is flat, non-distended. Derm: Skin is intact, Skin is pink, warm \T\ dry. Musculoskeletal: Circulation, motion, and sensation intact. Range of motion: intact in all extremities. 01:16 Reassessment: Patient appears in no apparent distress at this time. Patient and/or jb4 family updated on plan of care and expected duration. Pain level reassessed. Patient is alert, oriented x 3, equal unlabored respirations, skin warm/dry/pink. 02:06 Reassessment: Patient appears in no apparent distress at this time. Patient and/or jb4 family updated on plan of care and expected duration. Pain level reassessed. Patient is alert, oriented x 3, equal unlabored respirations, skin warm/dry/pink. Pt back from CT. 03:00 Reassessment: Patient appears in no apparent distress at this time. Patient and/or jb4 family updated on plan of care and expected duration. Pain level reassessed. Patient is alert, oriented x 3, equal unlabored respirations, skin warm/dry/pink. 04:29 Reassessment: Patient appears in no apparent distress at this time. Patient and/or jb4 family updated on plan of care and expected duration. Pain level reassessed. Patient is alert, oriented x 3, equal unlabored respirations, skin warm/dry/pink. Given multiple worm blankets and pillow per pt request. 04:48 Reassessment: Pt vomited imidiately after taking meds, provider notified, see MAR for jb4 orders. 05:19 Reassessment: Patient appears in no apparent distress at this time. Patient and/or jb4 family updated on plan of care and expected duration. Pain level reassessed. Patient is alert, oriented x 3, equal unlabored respirations, skin warm/dry/pink. Pt now resting comfortably in bed. Patient states feeling better. Vital Signs: 11/22 23:30 BP 143 / 58; Pulse 99; Resp 22 A; Temp 99.7; Pulse Ox 99% ; Weight 96.16 kg (R); Height jb4 5 ft. 9 in. (175.26 cm); Pain 0/10; 11/23 01:00 BP 116 / 63; Pulse 91; Resp 16; Pulse Ox 96% on R/A; jb4 02:30 BP 110 / 59; Pulse 83; Resp 24; Pulse Ox 97% ; jb4 03:00 BP 101 / 64; Pulse 81; Resp 19; Pulse Ox 97% on R/A; jb4 04:00 BP 177 / 63; Pulse 83; Resp 21; Temp 98.4(O); Pulse Ox 96% on R/A; jb4 04:39 Temp 99.5(O); jb4 05:19 BP 153 / 61; Pulse 115; Resp 30; Pulse Ox 90% on R/A; jb4 11/22 23:30 Body Mass Index 31.31 (96.16 kg, 175.26 cm) jb4 ED Course: 11/22 23:28 Patient arrived in ED. jb4 23:29 Chuck Jewell DO is Attending Physician. ms3 23:30 Wei Fagan, RN is Primary Nurse. jb4 23:40 Triage completed. jb4 23:43 Arm band placed on right wrist. jb4 11/23 00:15 First set of blood cultures drawn by me. mw1 00:50 Second set of blood cultures drawn by me. mw1 02:26 Abdomen In Process Unspecified. EDMS 03:45 Pardeep Perez is Hospitalizing Provider. ms3 05:22 No provider procedures requiring assistance completed. Patient admitted, IV remains in jb4 place. Administered Medications: 04:04 Drug: Rocephin (cefTRIAXone) 1 grams Route: IV; Rate: calculated rate; Site: right jb4 antecubital; 04:07 Follow up: IV Status: Completed infusion; IV Intake: 10ml jb4 04:48 Drug: Acetaminophen 650 mg Route: PO; jb4 04:48 Follow up: Response: Other; Pt vomited immediately after administration. jb4 04:48 Drug: XANax (alprazolam) Tablet 0.5 mg Route: PO; jb4 04:48 Follow up: Response: Other; Pt vomited immediately after administration. jb4 04:57 Drug: Zofran (Ondansetron) 4 mg Route: IVP; Site: right antecubital; jb4 05:33 Follow up: Response: No adverse reaction; Marked relief of symptoms jb4 05:14 CANCELLED (Physician Discretion): Ibuprofen 800 mg PO once sb3 Medication: 01:16 VIS not applicable for this client. jb4 Intake: 04:07 IV: 10ml; Total: 10ml. jb4 Outcome: 03:46 Decision to Hospitalize by Provider. ms3 05:37 Patient left the ED. jb4 Signatures: Dispatcher [employer] EDMS Wei Fagan RN RN jb4 Carlos Jerome mw1 Chuck Jewell DO DO ms3 Bel Villanueva sb3 Corrections: (The following items were deleted from the chart) 02:49 00:50 First set of blood cultures drawn Second set of blood cultures drawn by nicole gramajo mw1
--- NOTE | 2021-11-23 03:47 | EDPHYS ---
Physician Documentation [facility] Name: Cheyenne Gomez Age: 76 yrs Sex: Female : 1945 Arrival Date: 11/22/2021 Time: 23:28 Bed 8 Private MD: ED Physician Chuck Jewell HPI: 11/23 00:44 This 76 yrs old Female presents to ER via EMS with complaints of nausea and vomiting. ms3 00:44 The patient presents to the emergency department with nausea, vomiting. Onset: The ms3 symptoms/episode began/occurred today. Possible causes: unknown. The symptoms are aggravated by nothing. The symptoms are alleviated by nothing. Associated signs and symptoms: Pertinent positives:. Severity of symptoms: At their worst the symptoms were severe in the emergency department the symptoms have improved. 76-year-old female with past medical history of depression, diabetes, hyperlipidemia presents via [facility] for vomiting. EMS states patient's blood glucose level was 316 on their arrival. A 20-gauge IV was established in the right AC plan 300 mL of normal saline was given, 1 g of Offermev given IV arrival patient's blood glucose had decreased to 301.. Historical: - Allergies: 11/22 23:40 Codeine; jb4 23:40 Morphine; jb4 - PMHx: 23:40 Depression; Diabetes - NIDDM; Hyperlipidemia; jb4 - PSHx: 23:40 Partial colon removal; colonoscopy; jb4 - Immunization history:: Adult Immunizations up to date. - Social history:: Smoking status: Patient denies any tobacco usage or history of. ROS: 11/23 00:44 Constitutional: Negative for fever, and chills. Eyes: Negative for injury, pain, ms3 redness, and discharge, Neck: Negative for injury, pain, and swelling, Cardiovascular: Negative for chest pain, and palpitations. Respiratory: Negative for shortness of breath, cough, wheezing, and pleuritic chest pain. Abdomen/GI: Positive for nausea and vomiting. All other systems are negative. Exam: 00:44 Constitutional: This is a well developed, well nourished patient who is awake, alert, ms3 and in no acute distress. Head/Face: Normocephalic, atraumatic. Neck: Trachea midline, no cervical lymphadenopathy. Supple, full range of motion without nuchal rigidity, or vertebral point tenderness. No Meningismus. Chest/axilla: Normal chest wall appearance and motion. Nontender with no deformity. Cardiovascular: Regular rate and rhythm with a normal S1 and S2. No gallops, murmurs, or rubs. Normal PMI, no JVD. No pulse deficits. Respiratory: Lungs have equal breath sounds bilaterally, clear to auscultation and percussion. No rales, rhonchi or wheezes noted. No increased work of breathing, no retractions or nasal flaring. Abdomen/GI: Soft, non-tender, with normal bowel sounds. No distension or tympany. No guarding or rebound. No evidence of tenderness throughout. Skin: Warm, dry with normal turgor. Normal color with no rashes, no lesions, and no evidence of cellulitis. MS/ Extremity: Pulses equal, no cyanosis. Neurovascular intact. Full, normal range of motion. Neuro: Awake and alert, GCS 15, oriented to person, place, time, and situation. Cranial nerves II-XII grossly intact. Motor strength 5/5 in all extremities. Sensory grossly intact. Cerebellar exam normal. Normal gait. Psych: Awake, alert, with orientation to person, place and time. Behavior, mood, and affect are within normal limits. 02:16 ECG was reviewed by the Attending Physician. ms3 Vital Signs: 11/22 23:30 BP 143 / 58; Pulse 99; Resp 22 A; Temp 99.7; Pulse Ox 99% ; Weight 96.16 kg (R); Height jb4 5 ft. 9 in. (175.26 cm); Pain 0/10; 11/23 01:00 BP 116 / 63; Pulse 91; Resp 16; Pulse Ox 96% on R/A; jb4 02:30 BP 110 / 59; Pulse 83; Resp 24; Pulse Ox 97% ; jb4 03:00 BP 101 / 64; Pulse 81; Resp 19; Pulse Ox 97% on R/A; jb4 04:00 BP 177 / 63; Pulse 83; Resp 21; Temp 98.4(O); Pulse Ox 96% on R/A; jb4 04:39 Temp 99.5(O); jb4 05:19 BP 153 / 61; Pulse 115; Resp 30; Pulse Ox 90% on R/A; jb4 11/22 23:30 Body Mass Index 31.31 (96.16 kg, 175.26 cm) jb4 MDM: 11/22 23:29 Patient medically screened. ms3 11/23 00:44 Differential diagnosis: Nonspecific abd pain, gastritis, cholecystitis, appendicitis, ms3 diverticulitis, viral gastroenteritis, gastroenteritis. 03:46 Data reviewed: vital signs, nurses notes, lab test result(s), radiologic studies, and ms3 as a result, I will admit patient. Counseling: I had a detailed discussion with the patient and/or guardian regarding: the historical points, exam findings, and any diagnostic results supporting the discharge/admit diagnosis, lab results, radiology results, the need for further work-up and treatment in the hospital. ED course: Discussed case with HERMINIO Granda and she accepts on behalf of Dr Perez.. 11/22 23:30 Order name: CBC with Diff; Complete Time: 01:16 ms3 11/22 23:30 Order name: CMP; Complete Time: 01:16 ms3 11/22 23:30 Order name: Lipase; Complete Time: 01:16 ms3 11/22 23:30 Order name: Troponin High Sensitivity; Complete Time: 01:16 ms3 11/23 00:16 Order name: Blood Culture Adult (2) ms3 11/23 00:16 Order name: Lactate; Complete Time: 01:16 ms3 11/22 23:45 Order name: Abdomen EDMS 11/23 00:16 Order name: Protime (+inr); Complete Time: 01:16 ms3 11/23 00:16 Order name: Ptt, Activated; Complete Time: 01:16 ms3 11/23 01:54 Order name: Urine Dipstick-Ancillary; Complete Time: 03:36 EDMS 11/23 01:56 Order name: Urine Microscopic Only; Complete Time: 03:36 ds4 11/23 02:18 Order name: Urine Culture EDMS 11/23 03:51 Order name: SARS RAPID wm 11/22 23:30 Order name: IV Saline Lock; Complete Time: 00:41 ms3 11/22 23:30 Order name: Labs collected and sent; Complete Time: 00:41 ms3 11/22 23:30 Order name: Urine Dipstick-Ancillary (obtain specimen); Complete Time: 01:46 ms3 11/23 00:16 Order name: Accucheck; Complete Time: 00:41 ms3 11/23 00:16 Order name: Cardiac monitoring; Complete Time: 00:41 ms3 11/23 00:16 Order name: EKG - Nurse/Tech; Complete Time: 02:14 ms3 11/23 00:16 Order name: IV Saline Lock - Large Bore; Complete Time: 00:41 ms3 11/23 00:16 Order name: O2 Per Protocol; Complete Time: 00:41 ms3 11/23 00:16 Order name: O2 Sat Monitoring; Complete Time: 00:41 ms3 EC:16 Rate is 85 beats/min. Rhythm is regular. QRS [place] is Normal. [place] interval is normal. QRS ms3 interval is normal. Clinical impression: Normal ECG. Interpreted by me. Reviewed by me. Administered Medications: 04:04 Drug: Rocephin (cefTRIAXone) 1 grams Route: IV; Rate: calculated rate; Site: right jb4 antecubital; 04:07 Follow up: IV Status: Completed infusion; IV Intake: 10ml jb4 04:48 Drug: Acetaminophen 650 mg Route: PO; jb4 04:48 Follow up: Response: Other; Pt vomited immediately after administration. jb4 04:48 Drug: XANax (alprazolam) Tablet 0.5 mg Route: PO; jb4 04:48 Follow up: Response: Other; Pt vomited immediately after administration. jb4 04:57 Drug: Zofran (Ondansetron) 4 mg Route: IVP; Site: right antecubital; jb4 05:33 Follow up: Response: No adverse reaction; Marked relief of symptoms jb4 05:14 CANCELLED (Physician Discretion): Ibuprofen 800 mg PO once sb3 Disposition Summary: 11/23/21 03:46 Hospitalization Ordered Hospitalization Status: Inpatient Admission ms3 Provider: Pardeep Perez ms3 Location: Telemetry/MedSurg (Inpatient) ms3 Condition: Stable ms3 Problem: new ms3 Symptoms: are unchanged ms3 Bed/Room Type: Standard ms3 Room Assignment: 411(11/23/21 04:46) mw Diagnosis - Pyelonephritis acute ms3 - Sepsis without end organ dysfunction ms3 - Nausea with vomiting, unspecified ms3 Forms: - Medication Reconciliation Form ms3 - SBAR form ms3 Signatures: Dispatcher [employer] Teena Tesfaye, RN RN mw Wei Fagan RN RN jb4 Chuck Jewell DO DO ms3 Bel Villanueva PA PA sb3 Corrections: (The following items were deleted from the chart) 00:17 11/22 23:57 Abdomen Pelvis W Con+CT.RAD.BRZ ordered. EDFL EDMS 11/23 04:46 03:46 ms3 mw 05:14 04:53 Ibuprofen 800 mg PO once ordered. sb3 sb3
[2021-11-23] MEDS ORDERED: CEFTRIAXONE 1000 MG/VIAL ONE (04:06)
--- NOTE | 2021-11-23 04:35 | P.HP ---
Certification for Inpatient Patient admitted to: Inpatient With expected LOS: <2 Midnights Patient will require the following post-hospital care: None Practitioner: I am a practitioner with admitting privileges, knowledge of patient current condition, hospital course, and medical plan of care. Services: Services provided to patient in accordance with Admission requirements found in Title 42 Section 412.3 of the Code of Federal Regulations Patient History Date of Service: 11/23/21 Reason for admission: Pyelonephritis History of Present Illness: Patient is a 76 year-old female with history of insulin dependent type 2 diabetes, hypertension, and hyperlipidemia who presented to the ED via EMS with nausea, vomiting, fever, chills. Patient states that she went to urgent care 2 days ago for urinary symptoms and got a prescription for fluconazole. She was tachycardic and tachypneic upon arrival to ED. Her labs are significant for WBC 15, Na 133, glucose 307, creatinine 1.45, urine positive for UTI. Lactic acid WNL. CT abdomen pelvis showed left sided pyelonephritis and bladder thickening. She was given rocephin in ED. Patient is admitted for further management. Allergies No Known Allergies Allergy (Verified 12/24/16 02:39) Home medications list reviewed: Yes Home Medications: Insulin Aspart [Novolog Penfill] 30 unit SQ BID 12/24/16 Insulin Detemir [Levemir*] 50 units SQ BID 12/24/16 Metformin HCl 1,000 mg PO BID 12/24/16 PARoxetine HCl [Paxil] 30 mg PO DAILY 12/24/16 Ramipril [Altace] 10 mg PO DAILY 12/24/16 Amlodipine [Norvasc*] 5 mg PO DAILY 09/27/18 Aspirin [Casper Chewable Aspirin] 81 mg PO DAILY 09/27/18 Ciprofloxacin HCl [Cipro 500 MG Tablet] 500 mg PO BID #14 tab 09/28/18 - Past Medical/Surgical History Diabetic: Yes -: IDDM -: Hyperlipidemia -: Arrythmia -: Partial Colectomy Psychosocial/ Personal History: Patient is . Her daughter has been living with her. - Family History Father -: Heart disease daughter -: Heart disease - Social History Smoking Status: Never smoker Alcohol use: No CD- Drugs: No Caffeine use: Yes Place of Residence: Home Review of Systems General: Fever, Chills, Sweats Gastrointestinal: Nausea, Vomiting Physical Examination - Physical Exam General: Alert, In no apparent distress HEENT: Atraumatic, PERRLA, EOMI, Sclerae nonicteric Neck: Supple, 2+ carotid pulse no bruit, No LAD, Without JVD or thyroid abnormality Respiratory: Clear to auscultation bilaterally, Normal air movement Cardiovascular: Regular rate/rhythm, Normal S1 S2 Gastrointestinal: Normal bowel sounds, No tenderness Musculoskeletal: No tenderness Integumentary: No rashes Neurological: Normal speech, Normal strength at 5/5 x4 extr, Normal tone, Normal affect - Studies Laboratory Data (last 24 hrs) 11/23/21 00:15: PT 12.6 H, INR 1.14, APTT 31.2 11/22/21 23:54: Sodium 133 L, Potassium 4.8, BUN 23 H, Creatinine 1.45 H, Glucose 307 H, Total Bilirubin 1.1 H, AST 19, ALT 26, Alkaline Phosphatase 71, Lipase 78 11/22/21 23:54: WBC 15.60 H, Hgb 10.4 L, Hct 29.9 L, Plt Count 124 L Assessment and Plan - Problems (Diagnosis) (1) Pyelonephritis Current Visit: Yes Status: Acute (2) Sepsis Current Visit: Yes Status: Acute Qualifiers: Sepsis type: sepsis due to unspecified organism Sepsis acute organ dysfunction status: without acute organ dysfunction Qualified Code(s): A41.9 - Sepsis, unspecified organism (3) Type 2 diabetes mellitus Current Visit: Yes Status: Acute Qualifiers: 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 Follow urine culture -NS at 100 cc/hr -Physical therapy consult -Patient has been febrile on and off. Tylenol PRN. -ACHS accu checks with moderate sliding scale and diabetic diet. A1C ordered -Hydralazine & zofran PRN -Monitor and replete electrolytes per protocol -Reconcile and continue home medications -Lovenox for VTE ppx -Full code Discharge Plan: Home Plan to discharge in: 48 Hours - Advance Directives Does patient have a Living Will: No Does patient have a Durable POA for Healthcare: No - Code Status/Comfort Care Code Status Assessed: Yes (Full) Critical Care: No Time Spent Managing Pts Care (In Minutes): 50
[2021-11-23 04:36] LABS: SARS-CoV-2 Antigen Rapid Res Negative (Negative)
[2021-11-23] MEDS ORDERED: ALPRAZOLAM 0.5 MG TABLET ONE (04:52)
[2021-11-23] MEDS ORDERED: ACETAMINOPHEN 325 MG TABLET ONE (04:52)
[2021-11-23] MEDS ORDERED: ONDANSETRON 4 MG/2 ML VIAL ONE (05:00)
[2021-11-23] MEDS ORDERED: ACETAMINOPHEN 500 MG TAB PO PRN (05:38)
[2021-11-23] MEDS ORDERED: HYDRALAZINE HCL 20 MG/ML VIAL IV PRN (05:38)
[2021-11-23] MEDS: NA CHLORIDE 0.9% 1,000 ML IV SCH ×2 (06:10→21:19)
[2021-11-23 08:16] VITALS: BMI 31.3
[2021-11-23] MEDS: CEFTRIAXONE 1,000 MG in NA CHLORIDE 0.9% 50 ML IVPB SCH (09:53)
[2021-11-23] MEDS: GABAPENTIN 100 MG CAP PO SCH ×3 (09:55→21:20)
[2021-11-23] MEDS: FLUOXETINE 20 MG CAP PO SCH (09:55)
[2021-11-23] MEDS: ENOXAPARIN 40 MG/0.4 ML SQ SCH (09:55)
[2021-11-23] MEDS: INSULIN GLARGINE 100 UNIT/ML SQ SCH ×2 (09:55→21:21)
[2021-11-23] MEDS: INSULIN -REGULAR HUMAN 50 UNIT/0.5 ML ML SQ SCH ×4 (09:56→21:20)
[2021-11-23] MEDS ORDERED: ONDANSETRON 4 MG/2 ML VIAL IV PRN (11:00)
[2021-11-23 11:34] LABS: Specific Gravity 1.015 (1.005-1.030); Urine Blood 2+ (Negative); Urine Clarity Slightly Cloudy (Clear); Urine Color Yellow (Yellow); Urine Protein 3+ (Negative); Urine Urobilinogen 0.2 mg/dL (0.2-1.0)
[2021-11-23 11:58] LABS: Urine Glucose 1+ (Negative)
[2021-11-23 11:59] LABS: Urine Bilirubin NEGATIVE (Negative)
[2021-11-23 12:13] LABS: Transitional Epithelial <5 /HPF (None Seen); Urine Bacteria 20-50 /HPF (<20); Urine Granular Casts 0-5 /LPF (None Seen)
--- NOTE | 2021-11-23 12:41 | P.PN ---
Date of Service: 11/23/21 Patient seen and examined. She states she feels better. Diagnosis Acute pyelonephritis. DM with hyperglycemia. Plan: Continue current antibiotics Follow urine culture and blood cultures. Resume Lantus insulin. Continue insulin sliding scale.
[2021-11-24 04:32] LABS: Hematocrit 23.5 % (36.0-45.0); Lymphocytes % 12.2 % (15.3-44.8); MCV 88.5 fL (80-100); MPV 9.4 fL (7.6-11.3); RBC Red Blood Cell Count 2.66 M/uL (3.86-4.86)
[2021-11-24 04:50] LABS: Potassium 4.5 mmol/L (3.5-5.1)
[2021-11-24 04:51] LABS: Magnesium 1.7 mg/dL (1.8-2.4); Phosphorus 3.9 mg/dL (2.5-4.9)
[2021-11-24] MEDS ORDERED: MAGNESIUM SULFATE 1 gm IVPB 1 GM/100 ML BAG IV ONE (05:30)
[2021-11-24] MEDS: INSULIN -REGULAR HUMAN 50 UNIT/0.5 ML ML SQ SCH ×4 (07:30→20:19)
[2021-11-24] MEDS: CEFTRIAXONE 1,000 MG in NA CHLORIDE 0.9% 50 ML IVPB SCH (09:36)
[2021-11-24] MEDS: NA CHLORIDE 0.9% 1,000 ML IV SCH ×3 (09:36→21:38)
[2021-11-24] MEDS: FLUOXETINE 20 MG CAP PO SCH (09:38)
[2021-11-24] MEDS: ENOXAPARIN 40 MG/0.4 ML SQ SCH (09:38)
[2021-11-24] MEDS: GABAPENTIN 100 MG CAP PO SCH ×3 (09:38→20:21)
[2021-11-24] MEDS: INSULIN GLARGINE 100 UNIT/ML SQ SCH ×2 (09:38→20:19)
[2021-11-24] MEDS ORDERED: CEFTRIAXONE 1,000 MG in NA CHLORIDE 0.9% 50 ML IVPB ONE (12:00)
--- NOTE | 2021-11-24 13:48 | P.PN ---
Subjective Date of Service: 11/24/21 Chief Complaint: Pyelonephritis Patient states she feels much better today. She has no new complaint. Blood cultures growing gram-negative rods. Urine culture is still pending. Patient has been tolerating diet and she is ambulatory. Physical Examination - Vital Signs Temperature: 100.2 F Blood Pressure: 134/64 Pulse: 97 Respirations: 16 Pulse Ox (%): 92 - Studies Microbiology Data (last 24 hrs): 11/23/21 00:50 Blood - Blood Blood Culture Gram Stain - Final Assessment And Plan - Current Problems (Diagnosis) (1) FERCHO (acute kidney injury) Current Visit: Yes Status: Acute (2) Pyelonephritis Current Visit: Yes Status: Acute (3) Sepsis Current Visit: Yes Status: Acute Qualifiers: Sepsis type: sepsis due to unspecified organism Sepsis acute organ dysfunction status: without acute organ dysfunction Qualified Code(s): A41.9 - Sepsis, unspecified organism (4) Diabetes mellitus type II, uncontrolled Onset Date: 11/06/16 Current Visit: No Status: Acute (5) Anemia Current Visit: Yes Status: Acute - Plan Physical Exam General: Alert, In no apparent distress Neck: Supple, Without JVD. Respiratory: Clear to auscultation bilaterally, Normal air movement Cardiovascular: Regular rate/rhythm, Normal S1 S2 Gastrointestinal: Normal bowel sounds, No tenderness Musculoskeletal: No tenderness Integumentary: No rashes Neurological: Normal speech, Normal strength at 5/5 x4 extr, Normal tone, Normal affect Plan: Continue IV Rocephin. Pharmacy is dosing Rocephin to treat the bacteremia. Repeat blood culture to document bacteremia clearance. Follow urine culture Increase activity as tolerated Diet as tolerated Serum creatinine trended up. FERCHO probably secondary to sepsis Continue IV hydration Nephrology consult. Monitor H&H and transfuse as needed for hemoglobin less than 7. Continue home insulin regimen. Added insulin sliding scale Hold metformin due to FERCHO. Holding lisinopri/ HCTZ due to FERCHO
--- NOTE | 2021-11-24 17:57 | RAD REPORT ---
EXAM DESCRIPTION: RAD - Pelvis - 11/24/2021 5:45 pm CLINICAL HISTORY: post-fall COMPARISON: <Comparisons> FINDINGS/IMPRESSION: No acute fracture. No malalignment. No significant focal degenerative changes.
[2021-11-24] MEDS: INSULIN LISPRO 100 UNIT/1 ML SQ SCH (20:20)
[2021-11-24 20:34] VITALS: O2SAT 97
[2021-11-24] MEDS ORDERED: ATORVASTATIN 10 MG TAB PO SCH (21:00)
[2021-11-25 06:14] LABS: Absolute Lymphocytes (CBC) 1.8 K/uL (0.7-4.9); Hematocrit 22.3 % (36.0-45.0); Lymphocytes % 16.3 % (15.3-44.8); MCV 88.7 fL (80-100); MPV 9.5 fL (7.6-11.3); RBC Red Blood Cell Count 2.52 M/uL (3.86-4.86)
[2021-11-25 06:29] LABS: Magnesium 2.2 mg/dL (1.8-2.4); Potassium 4.7 mmol/L (3.5-5.1)
[2021-11-25] MEDS: INSULIN -REGULAR HUMAN 50 UNIT/0.5 ML ML SQ SCH (07:30)
[2021-11-25] MEDS: INSULIN LISPRO 100 UNIT/1 ML SQ SCH (08:26)
[2021-11-25] MEDS: INSULIN GLARGINE 100 UNIT/ML SQ SCH (08:54)
[2021-11-25] MEDS: FLUOXETINE 20 MG CAP PO SCH (08:55)
[2021-11-25] MEDS: GABAPENTIN 100 MG CAP PO SCH (08:55)
[2021-11-25] MEDS ORDERED: CEFTRIAXONE 2,000 MG in NA CHLORIDE 0.9% 100 ML IV SCH (09:00)
[2021-11-25] MEDS ORDERED: LORATADINE 10 MG TAB PO SCH (09:00)
[2021-11-25] MEDS ORDERED: AMLODIPINE 5 MG TAB PO SCH (09:00)
[2021-11-25] MEDS ORDERED: ENOXAPARIN 30 MG/0.3 ML SQ SCH (09:00)
[2021-11-25 09:15] VITALS: BP 143/82; TEMP 97.4
--- NOTE | 2021-11-25 10:55 | P.DS ---
Admission Date: 11/23/21 Discharge Date: 11/25/21 Disposition: ROUTINE DISCHARGE Discharge Condition: FAIR Reason for Admission: Pyelonephritis - Problems (1) FERCHO (acute kidney injury) Current Visit: Yes Status: Acute (2) Pyelonephritis Current Visit: Yes Status: Acute (3) Sepsis Current Visit: Yes Status: Acute Qualifiers: Sepsis type: sepsis due to unspecified organism Sepsis acute organ dysfu nction status: without acute organ dysfunction Qualified Code(s): A41.9 - Sepsis, unspecified organism (4) Diabetes mellitus type II, uncontrolled Onset Date: 11/06/16 Current Visit: No Status: Acute (5) Anemia Current Visit: Yes Status: Acute (6) E coli bacteremia Current Visit: Yes Status: Acute Brief History of Present Illness: Patient is a 76 year-old female with history of insulin dependent type 2 diabetes, hypertension, and hyperlipidemia who presented to the ED via EMS with nausea, vomiting, fever, chills. Patient stated that she went to urgent care 2 days prior for urinary symptoms and got a prescription for fluconazole. She was tachycardic and tachypneic upon arrival to ED. Her labs were significant for WBC 15, Na 133, glucose 307, creatinine 1.45, urine positive for UTI. Lactic acid WNL. CT abdomen pelvis showed left sided pyelonephritis and bladder thickening. She was given rocephin for further management. Hospital Course: Patient admitted to the medical floor and treated for acute pyelonephritis with IV Rocephin. Her blood culture grew E. coli sensitive to several antibiotics. Repeat blood culture yielded no growth. Urine culture yielded mixed growth. Patient clinically improved with treatment. She tolerated diet and was ambulatory. No fever, she denied any flank pain. Leukocytosis improved significantly with treatment. Of note patient is reported to have slipped in the bathroom and fell on her buttocks. She denied any pain or injury after a fall. Pelvic x-ray done did not show any fracture. Patient is clinically stable. She is discharged with ciprofloxacin to continue treatment for the E. coli bacteremia. Vital Signs/Physical Exam: Temp Pulse Resp BP Pulse Ox 97.4 F 94 H 18 143/82 H 97 11/25/21 08:00 11/25/21 08:00 11/25/21 08:00 11/25/21 08:00 11/25/21 08:00 General: Alert, In no apparent distress, Oriented x3 HEENT: Mucous membr. moist/pink Neck: JVD not distended Respiratory: Clear to auscultation bilaterally, Normal air movement Cardiovascular: No edema, Regular rate/rhythm, Normal S1 S2 Gastrointestinal: Normal bowel sounds, Soft and benign, Non-distended, No tenderness Musculoskeletal: No swelling Integumentary: No rashes, No erythema, No cyanosis Neurological: Normal strength at 5/5 x4 extr Laboratory Data at Discharge: WBC 11.30 K/uL (4.3-10.9) H D 11/25/21 05:35 Hgb 7.8 g/dL (12.0-15.0) L 11/25/21 05:35 Hct 22.3 % (36.0-45.0) L 11/25/21 05:35 Plt Count 121 K/uL (152-406) L 11/25/21 05:35 PT 12.6 SECONDS (9.5-12.5) H 11/23/21 00:15 INR 1.14 11/23/21 00:15 APTT 31.2 SECONDS (24.3-36.9) 11/23/21 00:15 Sodium 137 mmol/L (136-145) 11/25/21 05:35 Potassium 4.7 mmol/L (3.5-5.1) 11/25/21 05:35 BUN 29 mg/dL (7-18) H 11/25/21 05:35 Creatinine 1.62 mg/dL (0.55-1.3) H 11/25/21 05:35 Glucose 82 mg/dL (74-106) 11/25/21 05:35 Phosphorus 3.9 mg/dL (2.5-4.9) 11/24/21 03:48 Magnesium 2.2 mg/dL (1.8-2.4) D 11/25/21 05:35 Total Bilirubin 1.1 mg/dL (0.2-1.0) H 11/22/21 23:54 AST 19 U/L (15-37) 11/22/21 23:54 ALT 26 U/L (12-78) 11/22/21 23:54 Alkaline Phosphatase 71 U/L (45-117) 11/22/21 23:54 Lipase 78 U/L (73-393) 11/22/21 23:54 Home Medications: Insulin Aspart [Novolog Penfill] 30 unit SQ BID 12/24/16 Insulin Detemir [Levemir*] 50 units SQ BID 12/24/16 Metformin HCl 1,000 mg PO BID 12/24/16 Amlodipine [Norvasc*] 5 mg PO DAILY 09/27/18 Betamethasone Valerate [Luxiq] 2 appl TD PRN 11/23/21 Fluoxetine HCl [Prozac] 20 mg PO DAILY 11/23/21 Gabapentin 100 mg PO TID 11/23/21 Lisinopril/Hydrochlorothiazide [Zestoretic 20-25 mg Tablet] 1 tab PO DAILY 11/23/21 Loratadine [Claritin*] 1 tab PO DAILY 11/23/21 Multivit-Min/Iron/Folic/Lutein [Centrum Silver Women Tablet] 1 tab PO DAILY 11/23/21 Pravastatin Sodium 20 mg PO BEDTIME 11/23/21 Tramadol HCl [Ultram] 50 mg PO Q6H PRN 11/23/21 Ciprofloxacin HCl [Cipro 500 MG Tablet] 500 mg PO BID #24 tab 11/25/21 New Medications: Ciprofloxacin HCl [Cipro 500 MG Tablet] 500 mg PO BID #24 tab Diet: ADA Activity: Fall precautions Time spent managing pt's care (in minutes): 36
--- NOTE | 2021-11-25 11:12 | RAD REPORT ---
EXAM DESCRIPTION: CT - Abdomen Pelvis W Contrast - 11/23/2021 6:21 am CLINICAL HISTORY: The patient is 76 years old and is Female; abdominal pain TECHNIQUE: Axial computed tomography images of the abdomen and pelvis with intravenous contrast. S agittal and coronal reformatted images were created and reviewed. This CT exam was performed using one or more of the following dose reduction techniques: automated exposure control, adjustment of t he mA and/or kV according to patient size, and/or use of iterative reconstruction technique. COMPARISON: No relevant prior studies available. FINDINGS: Lung bases: Unremarkable. No mass. No consolidation. ABDOMEN: Liver: Hepatomegaly. Gallbladder and bile ducts: Cholelithiasis. No ductal dilation. Pancreas: Unremarkable. No mass. No ductal dilation. Spleen: Unremarkable. No splenomegaly. Adrenals: Unremarkable. No mass. Kidneys and ureters: Mild to moderate left perinephric stranding. Mild right perinephric stranding. No hydronephrosis. Stomach and bowel: Postsurgical changes in the proximal colon. No obstruction. No mucosal thickening. PELVIS: Appendix: No findings to suggest acute appendicitis. Bladder: Diffuse bladder wall thickening. Reproductive: Unremarkable as visualized. ABDOMEN and PELVIS: Intraperitoneal space: Unremarkable. No free air. No significant fluid collection. Bones/joints: Disc space narrowing with degenerative endplate changes at L4-5. No acute fracture. No dislocation. Soft tissues: Mild subcutaneous stranding in the anterior abdominal wall. Vasculature: Extensive atherosclerotic vascular calcifications. No abdominal aortic aneurysm. Lymph nodes: Unremarkable. No enlarged lymph nodes. IMPRESSION: 1. Mild to moderate left perinephric stranding. Correlate with any concern for infec tion or recently passed stone. 2. Diffuse bladder wall thickening. Correlate with any concern for cystitis, chronic bladder outl et obstruction, or other infiltrative process. 3. Hepatomegaly. 4. Cholelithiasis. 5. Additional non-emergent findings as above. Electronically signed by: Carlos Donald MD 11/23/2021 3:07 AM CDT Due to temporary technical issues with the PACS/Fluency reporting system, reports are being signed by the in house radiologists without review as a courtesy to insure prompt reporting. The interpreting radiologist is fully responsible for the content of the report.
--- NOTE | 2021-11-25 21:46 | CON ---
Date of Consultation: 11/25/2021 Chief Complaint: Acute kidney injury, acute pyelonephritis. History Of Present Illness: Patient is a 76-year-old female with multiple medical problems including history of insulin-dependent diabetes mellitus type 2, hypertension, hyperlipidemia. Patient presen lily to the hospital because of nausea, vomiting, fever, chills. [facility] to the admission and was prescribed fluconazole for possible yeast but denies t his. Although she developed fever, she became tachypneic and she had tachycardia in the emergency ro om. White count was 15,000, sodium 133, glucose 307. Creatinine level was elevated and urine showed changes consistent with urinary tract infection. Lactic acid although was negative and s how normal level. CT scan of the abdomen and pelvis showed left-sided pyelonephritis and bladder thi ckening. Patient received Rocephin in the emergency room and was admitted for acute kidney injury an d pyelonephritis. Patient on previous occasion back in 2018 had lab work done, which showed creatini ne level of 0.82. On admission, creatinine level was 1.45, and on November 24 2.17, today creatinine i s 1.62. Patient had CT scan of the abdomen and pelvis on November 22 in the hospital, which was done with contr ast. Nephrology consultation was requested today for evaluation of acute kidney injury. Serum creat inine level is gradually improving since yesterday and CT scan results are available and it showed mi ld to moderate left perinephric stranding, which may be correlated with the infection or recently pas sed stone. Patient does not have history of kidney stones and today she denies any specific symptoms suggestive of kidney colic. Review of Systems: General: She denies fever, chills. Eyes: Denies vision changes. Ears, Nose, Mouth and Throat: Denies sore throat, earache. Respiratory: Denies PND, orthopnea. Cardiovascular: Denies chest pain or palpitation. GI: Denies nausea or vomiting. : Denies dysuria, hematuria. Musculoskeletal: Denies muscle aches or joint swellings. All other systems reviewed and all are negative. Past Medical History: Diabetes mellitus, hypertension, hyperlipidemia, depression, history of urinar y tract infection, arrhythmia, partial colectomy. Family History: Father had heart disease. Daughter had heart disease. Social History: Denies tobacco, alcohol, or illicit drugs. Physical Examination: General: Patient is awake, alert, follows commands. Eyes: Anicteric sclerae, EOMI. Ears, Nose, Mouth, and Throat: Oral mucosa moist. No pallor. Neck: Supple. No bruits. Lungs: Diminished breath sounds at bases. Heart: S1, S2. Abdomen: Soft, benign. Extremities: No edema. Laboratory Data: Blood work today; sodium 137, potassium 4.7, chloride 109, BUN is 29, carbon dioxid e 25, creatinine 1.62, glucose 188, calcium 8.0, magnesium 2.2. Impression And Plan: 1.Acute kidney injury secondary to prerenal azotemia. Patient has pyelonephritis. Urine showed whi te blood cells, red blood cells, positive leukocyte esterase and positive blood and positive ketones. On admission, patient has 1+ ketones, nitrite positive. 2.Patient will continue antibiotics for urinary tract infection. Recommend to check her urine cultu re. Urine culture was obtained and showed gram-negative Escherichia coli and blood culture showed no growth after 24 hours. Recommend to monitor urine culture and blood culture. Adjust antibiotics fo r Escherichia coli according to urine culture. Patient is clinically feeling better today. 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 Patient needs further workup wit h Urology to rule out incomplete voiding and needs to be evaluated after antibiotic is completed. 3.Patient denies lower urinary tract symptoms. CT scan did not show obstructive uropathy. At this point, there is no hydronephrosis, although findings were consistent with pyelonephritis. 4.Status post IV contrast exposure. Discontinue metformin. Patient, at this point, is not a candid ate for metformin. Patient has diabetes. Continue insulin per primary team. 5.Patient will need to follow up with Nephrology. Renal function is about baseline. Patient is imp roving. Continue IV fluids as needed if patient cannot hydrate by mouth. Avoid nephrotoxic medicati on. Avoid nonsteroidal anti-inflammatory medication. EB/MODL Voice ID: [id number] Report ID: [id number]
--- NOTE | 2021-11-26 08:18 | EKG ---
Test Date: 2021-11-23 Test Time: 02:16:14 Warehouseman: AUDI MEASUREMENT RESULTS: Intervals: Rate: 85 DC: 162 QRSD: 70 QT: 382 QTc: 454 [place]: P: 71 DC: 162 QRS: 4 T: 56 INTERPRETIVE STATEMENTS: Normal sinus rhythm Normal ECG Compared to ECG 04/07/2018 21:06:13 Left-axis deviation no longer present Myocardial infarct finding no longer present Electronically Signed On 11-26-21 08:12:43 CDT by Cyrus Hurt
[2021-11-26] MEDS ORDERED: ENOXAPARIN 40 MG/0.4 ML SQ SCH (09:00)
== END 2021-11-25 17:57 | disposition home or self-care (01) | DRG 872 ==
LOC: ER 23:22 → ERHOLD 11-23 04:19 → 4TH 11-23 05:32
PROVIDERS: ADMIT Internal Medicine; ATTEND Internal Medicine
DX: A41.51 Sepsis due to Escherichia coli [E. coli] (principal); N10 Acute pyelonephritis; N17.9 Acute kidney failure, unspecified; E78.5 Hyperlipidemia, unspecified; E11.65 Type 2 diabetes mellitus with hyperglycemia; D64.9 Anemia, unspecified; I10 Essential (primary) hypertension; Z79.4 Long term (current) use of insulin; Z88.5 Allergy status to narcotic agent; Z79.84 Long term (current) use of oral hypoglycemic drugs; Z79.82 Long term (current) use of aspirin; Z79.899 Other long term (current) drug therapy; Z20.822 Contact with and (suspected) exposure to COVID-19
CPT/HCPCS: 36415; 72170; 74177; 80048; 80053; 81001; 81003; 81015; 82947; 83036; 83605; 83690; 83735; 84100; 84484; 85025; 85610; 85730; 87040; 87077; 87086; 87088; 87186; 87205; 87811; 93005; 96374; 96375; 97116; 97161; 97530; 99284; J0696; J1650; J1815; J2405; J3475; J7030; Q9967

== ENCOUNTER 2022-11-12 15:03 | Inpatient (IN) | payer OTHER ==
--- OUTSIDE RECORDS SUMMARY | 2022-11-12 15:25 | XMS REPORT | Continuity of Care Document ---
:1945 Author Organization [facility] t Address [address] [place] [address] [place] [id number] Care Team Providers Name Role Phone Felicia Worthington MD Primary Care Physician PETTY CALLOWAY Attending Clinician Unavailable FELICIA WORTHINGTON Attending Clinician Unavailable FLORENCIA BLACK Attending Clinician Unavailable FLORENCIA BLACK Attending Clinician Unavailable Nakul Villanueva PTA Attending Clinician Unavailable Felicia Worthington MD Attending Clinician Heidy Villanueva PTA Attending Clinician Unavailable María Bautista PT Attending Clinician Unavailable 2, [facility] Attending Clinician Unavailable Doctor Unassigned, [place] Attending Clinician Unavailable German Paz Attending Clinician Pob, [facility] Main Attending Clinician Unavailable Vtc-Lab Attending Clinician Unavailable LILIANA MITCHELL Attending Clinician Unavailable Liliana Mitchell MD Attending Clinician AVE CARSON Attending Clinician Unavailable Mel PRATHER, Mary Attending Clinician JAKE GARCIA Attending Clinician Unavailable Petty Calloway MD Attending Clinician Ebrahim TRIM LINE WORKER, Rania Attending Clinician Unknown, Attending Attending Clinician Unavailable ROB POSADAS Attending Clinician Unavailable 1, [facility] Attending Clinician Unavailable MARY RAMÍREZ Attending Clinician Unavailable JOSUÉ VERDUGO Attending Clinician Unavailable Only, [facility] Test Attending Clinician Unavailable [place] TRIM LINE WORKER, Lisette Attending Clinician LISETTE HERNDON Attending Clinician Unavailable [place] TRIM LINE WORKER, Xin Attending Clinician Green TRIM LINE WORKER, Angela Attending Clinician GREEN ANGELA Attending Clinician Unavailable Med, Medicare Wellness Ang Fam Attending Clinician Unavailab le [place] TRIM LINE WORKER, Omayemi Attending Clinician XIN ALVARADO Attending Clinician Unavailable Dannie Conroy MD Attending Clinician DEN NUÑEZ Attending Clinician Unavailable Nurse, [facility] Pob Immunization Attending Clinician Unavailable Den Nuñez DO Attending Clinician Alex Belcher MD Attending Clinician Nicky TORRES, Tamiko L Attending Clinician Unavailable LB BENAVIDES Attending Clinician Unavailable Lb Benavides MD Attending Clinician Gramm TRIM LINE WORKER, Marleen Atkins Attending Clinician ALEX BELCHER Attending Clinician Unavailable Jorge Alexandre Attending Clinician Unavailable Percy Gutierrez CRNA Attending Clinician Diaz Toledo MD Attending Clinician DIAZ TOLEDO Attending Clinician Unavailable Jl Shea MD Attending Clinician JL SHEA Attending Clinician Unavailable Lupis [place] Attending Clinician Pcp, Patient Does Not Have A Attending Clinician [id number] PETTY CALLOWAY Admitting Clinician Unavailable LILIANA MITCHELL Admitting Clinician Unavailable Petty Calloway MD Admitting Clinician FELICIA WORTHINGTON Admitting Clinician Unavailable Diaz Toledo MD Admitting Clinician DIAZ TOLEDO Admitting Clinician Unavailable FELICIA WORTHINGTON Admitting Clinician Unavailable Payers Payer Name Policy Type Policy Number Effective Date Expiration Date Cornelia [employer] MANAGED [id number] 2020 MEDICARE PPO-JEM 00:00:00 Problems Condition Condition Condition Status Onset Resolution Last Treating Co mments Source Name Details Category Date Date Treatment Clinician Date Impaired Impaired Disease Active Unive rs functional functional 10-27 [place] of mobility, [place], [place] balance, balance, 00 Medica l gait, and gait, and Bran ch endurance endurance Muscular Muscular Disease Active Unive rs weakness weakness 10-27 ity of 00:00: [place] 00 Medical Branch Bilateral Bilateral Disease Active Uni vers primary primary 10-03 ity of osteoarthr [place]oarth[place] it[place] of itis of 00 Medical hip hip Branch Fall, Fall, Disease Active Univers sequela sequela 10-03 ity of 00:00: [place] 00 Medical Branch Tinnitus Tinnitus Disease Active Unive rs of both of both 08-28 ity of ears ears 00:00: [place] 00 Medical Branch Vertigo Vertigo Disease Active Univers 6-01 ity of 00:00: [place] 00 Medical Branch Dysuria Dysuria Disease Active Univers 5-03 ity of 00:00: [place] 00 Medical Branch Hyperkalem Hyperkalem Disease Active 2021-03 U nivers ia ia - ity of 00:00: [place] 00 Medical Branch UTI UTI Disease Active 2021-03 Univers (urinary (urinary -22 ity of tract tract 00:00: [place] infection) infection) 00 Me dical due to due to Branch Enterococc Enterococc us us Other iron Other iron Disease Active 2021-03 U nivers deficiency deficiency -22 it y of anemia anemia 00:00: [place] 00 Medical Branch 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 coli E. coli Disease Active 2021-03 Univers UTI UTI - ity of 00:00: Medical Branch Diverticul Diverticul Disease Active U nivers a of colon a of colon 8-24 it y of 00:00: [place] [facility] Vaginal Vaginal Disease Active Univers yeast yeast 11-20 ity of infection infection 00:00[place] [facility] [place] Chronic Chronic Disease Active Univers allergic allergic 08-07 ity of rhinitis rhinitis 00:00: [place] [facility] Multiple Multiple Disease Active Unive rs adenomatou adenomatou 2 it y of s polyps s polyps 00:00: [place] [facility] Obesity Obesity Disease Active Univers (BMI (BMI 2-09 ity of 30-39.9) 30-39.9) 00:00: [place] [facility] Status Status Disease Active Univers post right post right 05-08 it y of hemicolect hemicolect 00:[place] tristen tristen 00 Medical Branch Polyp, Polyp, Disease Active Univers colonic colonic 12-18 ity of 00:00: [place] [facility] Polyp of Polyp of Disease Active Overview: [place] colon, colon, 9-13 Formattin ity of unspecifie unspecifie 00:00: g of this [place] d part of d part of 00 note Medi evert colon, colon, might be Branch unspecifie unspecifie different d type d type from the original. Added automatic ally from request for surgery [id number] History of History of Disease Active Overview : Univers colon colon 7-02 Formattin ity of polyps polyps 00:00: g of this [place] 00 note Medical might be Branch different from the original. 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 08-23 ity of depression depression 00:00: [place] 00 [place] Irregular Irregular Disease Active Uni vers heart beat heart beat 08-23 it y of 00:00: [place] [facility] Premature Premature Disease Active Uni vers ventricula ventricula 08-23 it y of r beat r beat 00:00: [place] [facility] Hypomagnes Hypomagnes Disease Active U nivers emia emia 08-23 ity of 00:00: [place] [facility] Premature Premature Disease Active Uni vers ventricula ventricula 08-23 it y of r beat r beat 00:00: [place] [facility] Diabetic Diabetic Disease Active Unive rs polyneurop polyneurop -20 it y of athy athy 00:00: [place] associated associated 00 Me dical with type with type Bran ch 2 diabetes 2 diabetes mellitus mellitus Grief Grief Disease Active Univers 4- ity of 00:00: [place] [facility] Abnormalit Abnormalit Disease Active U nivers y of gait y of gait 07-19 ity of 00:00: [place] [facility] Other Other Disease Active Univers specified specified 07-19 ity of extrapyram extrapyram 00:00: [place] idal and idal and 00 Medica l movement movement Branch disorders disorders Senile Senile Disease Active Univers osteoporos osteoporos 07-19 it y of is is 00:00: [place] [facility] Dyslipidem Dyslipidem Disease Active U nivers ia ia 8-17 ity of 00:00: [place] [facility] Panic Panic Disease Active 2018-03 Univers attack attack 2-11 ity of 00:00: [place] [facility] Diabetic Diabetic Disease Active 2018-03 Overview: [facility] [place] eye exam eye exam 2-04 Formattin ity of 00:00: g of this 00 note Medical might be Branch different from the original. Added automatic ally from request for surgery [id number] Type 2 Type 2 Disease Active 2018-03 Univers diabetes diabetes 130 ity of mellitus mellitus 00:00: [place] with with 00 Medical complicati complicati Br anch on, with on, with long-term long-term current current use of use of insulin insulin Hyperlipid Hyperlipid Disease Active 2018-03 U nivers emia, emia, 1- ity of unspecifie unspecifie 00:00[place] d d 00 Medical hyperlipid hyperlipid Br anch emia type emia type Essential Essential Disease Active 2018-03 Uni vers hypertensi hypertensi 1-30 it y of on on 00:00: [place] 00 Medical Branch Depression Depression Disease Active 2018-03 U nivers , , 04-28 ity of unspecifie unspecifie 00:00: [place] d d Medical depression depression Br anch type type Need for Need for Disease Active 2018-03 Unive rs influenza influenza 04-28 ity of vaccinatio vaccinatio 00:00[place] n n 00 Medical Branch Need for Need for Disease Active 2018-03 Unive rs 23-polyval 23-polyval 04-28 it y of ent ent 00:00: [place] pneumococc pneumococc 00 Me dical al al Branch polysaccha polysaccha ride ride vaccine vaccine Breast Breast Disease Active 2018-03 [facility] [place] [facility] cancer cancer 04-28 ity of screening screening 00:00[place] 00 Medical mammogram mammogram Bran ch Need for Need for Disease Active 2018-03 Unive rs hepatitis hepatitis 04-28 ity of C C 00:00: [place] screening screening 00 Medi evert test test Branch Type 2 Type 2 Disease Active 2018-03 [facility] [place] [facility] diabetes diabetes 04-28 ity of mellitus mellitus 00:00: [place] with with 00 Medical complicati complicati Br anch on, with on, with long-term long-term current current use of use of insulin insulin Allergies, Adverse Reactions, Alerts Allergy Allergy Status Severity Reaction(s) Onset Inactive Treating Comm ents Source Name Type Date Date Clinician Morphine Propensi Active Other - See U ulises ty to comments 12-20 ity of adverse 00:00: [place] reaction 00 Medical s Branch MORPHINE DRUG Active Dizziness Unive rs INGREDI 12-20 ity of 00:00: [place] 00 Medical Branch No Known DA Active [facility] Allergie 09-14 [place] 00:00: [address] No Known DA Active [facility] Allergie 18 [place] 00:00: [address] Social History Social Habit Start Date Stop Date Quantity Comments Source History SDOH University o f Alcohol Std Drinks [place] [facility] History SDOH University o f Alcohol Binge [place] [facility] History SDOH University o f Alcohol Comment [place] [facility] Gender identity [facility] [place] [facility] Sexual orientation Univer sity of [place] [facility] Alcohol intake 2022-10-04 2022-10-04 Lifetime University of 00:00:00 00:00:00 non-drinker [place] [facility] (finding) Branch History of Social 2022-08-28 2022-08-28 Univers ity of function 00:00:00 00:00:00 [facility] Exposure to 2022-07-20 2022-07-30 Not sure University SARS-CoV-2 (event) 00:00:00 11:23:00 [facility] Tobacco use and 2021-11-20 2021-11-20 Smokeless Universit y of exposure 00:00:00 00:00:00 tobacco non-user [facility] dical Branch History SDOH 2018-09-08 2018-09-08 1 University o f Alcohol Frequency 00:00:00 00:00:00 [facility] edical [place] Sex [birth year] Universit y of 00:00:00 00:00:00 [facility] Smoking Status Start Date Stop Date Source Never smoked tobacco [facility] Medications Ordered Filled Start Stop Current Ordering Indication Dosage Frequency Signature Comments Components Source Medication Medication Date Date Medication? Clinician (SIG) Name Name loratadine 2022- No 10mg Take 10 mg Univers (CLARITIN 7 07-07 by mouth ity o f ORAL) 16:19: 00:00 daily. As [place] 59 :00 needed Medical Branch loratadine 2022- No 10mg Take 10 mg Univers (CLARITIN 7 07-07 by mouth ity o f ORAL) 16:19: 00:00 daily. As [place] 59 :00 needed [facility] Branch loratadine 2022- No 10mg Take 10 mg Univers (CLARITIN 7 07-07 by mouth ity o f ORAL) 16:19: 00:00 daily. As [place] 59 :00 needed Medical Branch multivit-mi Yes 1{tbl} Take 1 Un [facility] n/iron/foli 7-07 tablet by ity of c/lutein 16:03: mouth [place] (CENTRUM 20 daily. Medical NEW CANEY Branch WOMEN ORAL) FIBER Yes 1{tbl} Take 1 Univers CHOICE ORAL 7-07 tablet by ity of 16:03: mouth. [place] 20 Medical Branch multivit-mi Yes 1{tbl} Take 1 [facility] [place] n/iron/foli 7-07 tablet by ity of c/lutein 16:03: mouth [place] (CENTRUM 20 daily. Medical SILVER [place] WOMEN ORAL) FIBER Yes 1{tbl} Take 1 Univers CHOICE ORAL 7-07 tablet by ity of 16:03: mouth. [address] Yes 1{tbl} Take 1 Un [place] n/iron/foli 7-07 tablet by ity of c/lutein 16:03: mouth [place] (CENTRUM 20 daily. Medical SILVER [place] WOMEN ORAL) FIBER Yes 1{tbl} Take 1 Univers CHOICE ORAL 7-07 tablet by ity of 16:03: mouth. [address] Yes 1{tbl} Take 1 Un [place] n/iron/foli 7-07 tablet by ity of c/lutein 16:03: mouth [place] (CENTRUM 20 daily. Medical SILVER [place] WOMEN ORAL) FIBER Yes 1{tbl} Take 1 Univers CHOICE ORAL 7-07 tablet by ity of 16:03: mouth. [address] Yes 1{tbl} Take 1 Un [place] n/iron/foli 7-07 tablet by ity of c/lutein 16:03: mouth [place] (CENTRUM 20 daily. Medical SILVER [place] WOMEN ORAL) FIBER Yes 1{tbl} Take 1 Univers CHOICE ORAL 7-07 tablet by ity of 16:03: mouth. [address] Yes 1{tbl} Take 1 Un [facility]a n/iron/foli 7-07 tablet by ity of c/lutein 16:03: mouth [place] (CENTRUM 20 daily. Medical SILVER [place] WOMEN ORAL) FIBER Yes 1{tbl} Take 1 Univers CHOICE ORAL 7-07 tablet by ity of 16:03: mouth. [address] Yes 1{tbl} Take 1 Un mila n/iron/foli 7-07 tablet by ity of c/lutein 16:03: mouth [place] (CENTRUM 20 daily. Medical SILVER [place] WOMEN ORAL) FIBER Yes 1{tbl} Take 1 Univers CHOICE ORAL 7-07 tablet by ity of 16:03: mouth. [address] Yes 1{tbl} Take 1 Un [facility]a n/iron/foli 7-07 tablet by ity of c/lutein 16:03: mouth [place] (CENTRUM 20 daily. Medical SILVER Branch WOMEN ORAL) FIBER Yes 1{tbl} Take 1 Univers CHOICE ORAL 7-07 tablet by ity of 16:03: mouth. [address] Yes 1{tbl} Take 1 Un [facility]a n/iron/foli 7-07 tablet by ity of c/lutein 16:03: mouth [place] (CENTRUM 20 daily. Medical SILVER [place] WOMEN ORAL) FIBER Yes 1{tbl} Take 1 Univers CHOICE ORAL 7-07 tablet by ity of 16:03: mouth. [address] Yes 1{tbl} Take 1 Un [place] n/iron/foli 7-07 tablet by ity of c/lutein 16:03: mouth [place] (CENTRUM 20 daily. Medical SILVER Branch WOMEN ORAL) FIBER Yes 1{tbl} Take 1 Univers CHOICE ORAL 7-07 tablet by ity of 16:03: mouth. [address] Yes 1{tbl} Take 1 Un [place] n/iron/foli 7-07 tablet by ity of c/lutein 16:03: mouth [place] (CENTRUM 20 daily. Medical SILVER Branch WOMEN ORAL) FIBER Yes 1{tbl} Take 1 Univers CHOICE ORAL 7-07 tablet by ity of 16:03: mouth. [address] Yes 1{tbl} Take 1 Un [place] n/iron/foli 7-07 tablet by ity of c/lutein 16:03: mouth [place] (CENTRUM 20 daily. Medical SILVER [place] WOMEN ORAL) FIBER Yes 1{tbl} Take 1 Univers CHOICE ORAL 7-07 tablet by ity of 16:03: mouth. [address] Yes 1{tbl} Take 1 Un [place] n/iron/foli 7-07 tablet by ity of c/lutein 16:03: mouth [place] (CENTRUM 20 daily. Medical SILVER Branch WOMEN ORAL) FIBER Yes 1{tbl} Take 1 Univers CHOICE ORAL 7-07 tablet by ity of 16:03: mouth. [address] Branch multivit-mi Yes 1{tbl} Take 1 Un [place]a n/iron/foli 7-07 tablet by ity of c/lutein 16:03: mouth [place] (CENTRUM 20 daily. Medical SILVER Branch WOMEN ORAL) FIBER Yes 1{tbl} Take 1 Univers CHOICE ORAL 7-07 tablet by ity of 16:03: mouth. [address] Branch sodium 2022- No 15g 15 g, Univers polystyrene 09-30 Oral, ity of sulfonate 01:15: 00:57 ONCE, 1 [place] (KAYEXALATE 00 :00 dose, On Medi evert ) 15 Thu09/29/22 Branch gram/60 mL at 2014, suspension Routine 15 g albuterol 2022- No 5mg 5 mg, Univer s (PROVENTIL) 09-30 Inhalation i ty of 2.5 mg /3 00:30: 00:45 , [place]CE, 1 [place] mL (0.083 00 :00 dose, On Medica l %) Thu09/29/22 Branch nebulizer at 1930, solution 5 STAT mg insulin 2022- No .1U/kg 9.43 Units U nivers regular 09-30 (0.1 ity of human 00:30: 00:47 Units/kg [place] (HUMULIN R) 00 :00 ?94.3 kg), Me dical injection Slow IV Branch 9.43 Units Push, ONCE, 1 dose, On Thu09/29/22 at 1930, STAT
In dication for insulin: Hyperkalem ia- Please use the Insulin Protocol for Hyperkalem ia order set calcium 2022- No 1000mg 1,000 mg, [place] chloride 09-30 Intravenou ity of 100 mg/mL 00:30: 00:59 s, ONCE, 1 [place] (10 %) 00 :00 dose, On Medical syringe Thu09/29/22 Branch 1,000 mg at 1930, STAT dextrose Yes 250mL 250 mL, IV Un [place] 10% (D10W) 7-04 Infusion, ity of bolus 00:21: PRN - SEE [place] infusion 08 INSTRUCTIO Medic al 250 mL NS, Branch Administer over 60 Minutes, Other, If blood glucose is < or = 70 mg/dL and patient is unable to swallow or has mental status changes, Starting on 09/29/22 at 1921
If blood glucose is < or = 70 mg/dL and patient is unable to swallow or has mental status changes (Give glucagon order if patient needs fluid restrictio n): IF IV access available: Dextrose 10%. 1. 125 mL (? bag) of D10W IV infusion - equivalent to 12.5 g dextrose 2. Blood glucose - draw blood glucose 15 minutes after D10W Administra tion. 3. If blood glucose is < 80 mg/dL, repeat.
HYDROcodone 202- No 1{tbl} 1 tablet, Univers -acetaminop 09-12 Oral, ity of hen (NORCO 09:00: 08:47 ONCE, 1 [place] 5) 5-325 mg 00 :00 dose, On Medi evert tablet 1 Fri Branch tablet 09/12/22 at 0400, ERIN gabapentin 2022- No 200mg 200 mg, Un [place] (NEURONTIN) 09-12 Oral, ONCE i ty of capsule 200 06:30: 06:07 NOW, 1 [place] as mg 00 :00 dose, On Medical Fri Branch 09/12/22 at 0130, Routine levoFLOXaci 2022- No 500mg 500 mg, U nivers n 09-12 Oral, ity of (LEVAQUIN) 05:30: 06:07 ONCE, 1 [place] as tablet 500 00 :00 dose, On Medic al mg Fri Branch 09/12/22 at 0030, ERIN
Re ason for Anti-Infec tive: Documented Infection< br>Documen lily Infection Site: Urine
D uration of Therapy: Other (see Comments) acetaminoph Yes [id number] 1{tbl} Take 1 [place] en-codeine 09-12 tablet by ity of (TYLENOL-CO 00:00: mouth [place] DEINE #3) 00 every 4 Medical 300-30 mg (four) Branch tablet hours as needed for Pain (scale 7-10). Indication s: acute pain levoFLOXaci 2023-0 Yes [id number] 500mg Take 1 Univers n 6-16 tablet by ity of (LEVAQUIN) 00:00: mouth [place] 500 mg 00 every 24 Medical tablet (twenty-fo Branch ur) hours. acetaminoph 2023-0 Yes [id number] 1{tbl} Take 1 [place] en-codeine 6-16 tablet by ity of (TYLENOL-CO 00:00: mouth [place] DEINE #3) 00 every 4 Medical 300-30 mg (four) Branch tablet hours as needed for Pain (scale 7-10). Indication s: acute pain levoFLOXaci 2023-0 Yes [id number] 500mg Take 1 Univers n 6-16 tablet by ity of (LEVAQUIN) 00:00: mouth [place] 500 mg 00 every 24 Medical tablet (twenty-fo Branch ur) hours. acetaminoph 2023-0 Yes [id number] 1{tbl} Take 1 [place] en-codeine 6-16 tablet by ity of (TYLENOL-CO 00:00: mouth [place] DEINE #3) 00 every 4 Medical 300-30 mg (four) Branch tablet hours as needed for Pain (scale 7-10). Indication s: acute pain levoFLOXaci 2023-0 Yes [id number] 500mg Take 1 Univers n 6-16 tablet by ity of (LEVAQUIN) 00:00: mouth [place] 500 mg 00 every 24 Medical tablet (twenty-fo Branch ur) hours. acetaminoph 2023-0 Yes [id number] 1{tbl} Take 1 [place] en-codeine 6-16 tablet by ity of (TYLENOL-CO 00:00: mouth [place] DEINE #3) 00 every 4 Medical 300-30 mg (four) Branch tablet hours as needed for Pain (scale 7-10). Indication s: acute pain levoFLOXaci 2023-0 Yes [id number] 500mg Take 1 Univers n 6-16 tablet by ity of (LEVAQUIN) 00:00: mouth [place] 500 mg 00 every 24 Medical tablet (twenty-fo Branch ur) hours. acetaminoph 2023-0 Yes [id number] 1{tbl} Take 1 [facility] [place] en-codeine 6-16 tablet by ity of (TYLENOL-CO 00:00: mouth [place] DEINE #3) 00 every 4 Medical 300-30 mg (four) Branch tablet hours as needed for Pain (scale 7-10). Indication s: acute pain levoFLOXaci 2023-0 Yes [id number] 500mg Take 1 Univers n 6-16 tablet by ity of (LEVAQUIN) 00:00: mouth [place] 500 mg 00 every 24 Medical tablet (twenty-fo Branch ur) hours. acetaminoph 2023-0 Yes [id number] 1{tbl} Take 1 [place] en-codeine 6-16 tablet by ity of (TYLENOL-CO 00:00: mouth [place] DEINE #3) 00 every 4 Medical 300-30 mg (four) Branch tablet hours as needed for Pain (scale 7-10). Indication s: acute pain levoFLOXaci 2023-0 Yes [id number] 500mg Take 1 Univers n 6-16 tablet by ity of (LEVAQUIN) 00:00: mouth [place] 500 mg 00 every 24 Medical tablet (twenty-fo Branch ur) hours. acetaminoph 2023-0 Yes [id number] 1{tbl} Take 1 [place] en-codeine 6-16 tablet by ity of (TYLENOL-CO 00:00: mouth [place] DEINE #3) 00 every 4 Medical 300-30 mg (four) Branch tablet hours as needed for Pain (scale 7-10). Indication s: acute pain levoFLOXaci 2023-0 Yes [id number] 500mg Take 1 Univers n 6-16 tablet by ity of (LEVAQUIN) 00:00: mouth [place] 500 mg 00 every 24 Medical tablet (twenty-fo Branch ur) hours. acetaminoph 2023-0 Yes [id number] 1{tbl} Take 1 [place] en-codeine 6-16 tablet by ity of (TYLENOL-CO 00:00: mouth [place] DEINE #3) 00 every 4 Medical 300-30 mg (four) Branch tablet hours as needed for Pain (scale 7-10). Indication s: acute pain levoFLOXaci 2023-0 Yes [id number] 500mg Take 1 Univers n 6-16 tablet by ity of (LEVAQUIN) 00:00: mouth [place] 500 mg 00 every 24 Medical tablet (twenty-fo Branch ur) hours. acetaminoph 2023-0 Yes [id number] 1{tbl} Take 1 [place] en-codeine 6-16 tablet by ity of (TYLENOL-CO 00:00: mouth [place] DEINE #3) 00 every 4 Medical 300-30 mg (four) Branch tablet hours as needed for Pain (scale 7-10). Indication s: acute pain levoFLOXaci 2023-0 Yes [id number] 500mg Take 1 Univers n 6-16 tablet by ity of (LEVAQUIN) 00:00: mouth [place] 500 mg 00 every 24 Medical tablet (twenty-fo Branch ur) hours. acetaminoph 3-0 Yes [id number] 1{tbl} Take 1 [facility] [place] en-codeine 6-16 tablet by ity of (TYLENOL-CO 00:00: mouth [place] DEINE #3) 00 every 4 Medical 300-30 mg (four) Branch tablet hours as needed for Pain (scale 7-10). Indication s: acute pain acetaminoph 3-0 Yes [id number] 1{tbl} Take 1 [facility] [place] en-codeine 6-16 tablet by ity of (TYLENOL-CO 00:00: mouth [place] DEINE #3) 00 every 4 Medical 300-30 mg (four) Branch tablet hours as needed for Pain (scale 7-10). Indication s: acute pain acetaminoph 3-0 Yes 4647 1{tbl} Take 1 [facility] [place] en-codeine 6-16 tablet by ity of (TYLENOL-CO 00:00: mouth [place] DEINE #3) 00 every 4 Medical 300-30 mg (four) Branch tablet hours as needed for Pain (scale 7-10). Indication s: acute pain acetaminoph 2023-0 Yes [id number] 1{tbl} Take 1 [facility] [place] en-codeine 6-16 tablet by ity of (TYLENOL-CO 00:00: mouth [place] DEINE #3) 00 every 4 Medical 300-30 mg (four) Branch tablet hours as needed for Pain (scale 7-10). Indication s: acute pain acetaminoph 2023-0 Yes [id number] 1{tbl} Take 1 [facility] [place] en-codeine 6-16 tablet by ity of (TYLENOL-CO 00:00: mouth [place] DEINE #3) 00 every 4 Medical 300-30 mg (four) Branch tablet hours as needed for Pain (scale 7-10). Indication s: acute pain acetaminoph 2023-0 Yes [id number] 1{tbl} Take 1 [facility] [place] en-codeine 6-16 tablet by ity of (TYLENOL-CO 00:00: mouth [place] DEINE #3) 00 every 4 Medical 300-30 mg (four) Branch tablet hours as needed for Pain (scale 7-10). Indication s: acute pain acetaminoph 2023-0 Yes [id number] 1{tbl} Take 1 [place] en-codeine 6-16 tablet by ity of (TYLENOL-CO 00:00: mouth [place] DEINE #3) 00 every 4 Medical 300-30 mg (four) Branch tablet hours as needed for Pain (scale 7-10). Indication s: acute pain acetaminoph 2023-0 Yes 4647 1{tbl} Take 1 [place] en-codeine 6-16 tablet by ity of (TYLENOL-CO 00:00: mouth [place] DEINE #3) 00 every 4 Medical 300-30 mg (four) Branch tablet hours as needed for Pain (scale 7-10). Indication s: acute pain acetaminoph 2023-0 Yes [id number] 1{tbl} Take 1 [place] en-codeine 6-16 tablet by ity of (TYLENOL-CO 00:00: mouth [place] DEINE #3) 00 every 4 Medical 300-30 mg (four) Branch tablet hours as needed for Pain (scale 7-10). Indication s: acute pain acetaminoph 2023-0 Yes 4647 1{tbl} Take 1 [place] en-codeine 6-16 tablet by ity of (TYLENOL-CO 00:00: mouth [place] DEINE #3) 00 every 4 Medical 300-30 mg (four) Branch tablet hours as needed for Pain (scale 7-10). Indication s: acute pain acetaminoph 2023-0 Yes [id number] 1{tbl} Take 1 [place] en-codeine 6-16 tablet by ity of (TYLENOL-CO 00:00: mouth [place] DEINE #3) 00 every 4 Medical 300-30 mg (four) Branch tablet hours as needed for Pain (scale 7-10). Indication s: acute pain acetaminoph 2023-0 Yes [id number] 1{tbl} Take 1 [facility] en-codeine 6-16 tablet by [facility] of (TYLENOL-CO 00:00: mouth [place] DEINE #3) 00 every 4 Medical 300-30 mg (four) Branch tablet hours as needed for Pain (scale 7-10). Indication s: acute pain acetaminoph 2022-0 Yes [id number] 1{tbl} Take 1 [facility] en-codeine 6-16 tablet by [facility] of (TYLENOL-CO 00:00: mouth [place] DEINE #3) 00 every 4 Medical 300-30 mg (four) Branch tablet hours as needed for Pain (scale 7-10). Indication s: acute pain acetaminoph 2022-0 Yes [id number] 1{tbl} Take 1 [facility] en-codeine 6-16 tablet by [facility] of (TYLENOL-CO 00:00: mouth [place] DEINE #3) 00 every 4 Medical 300-30 mg (four) Branch tablet hours as needed for Pain (scale 7-10). Indication s: acute pain levoFLOXaci 2022-0 202- No [id number] 500mg Take 1 [facility] n 6-16 -07 tablet by [facility] of (LEVAQUIN) 00:00: 00:00 mouth [place] 500 mg 00 :00 every 24 Medical tablet (twenty-fo Branch ur) hours. levoFLOXaci 2022-0 2022- No [id number] 500mg Take 1 [facility] n 6-16 -07 tablet by [facility] of (LEVAQUIN) 00:00: 00:00 mouth [place] 500 mg 00 :00 every 24 Medical tablet (twenty-fo Branch ur) hours. levoFLOXaci 2022-0 202- No [id number] 500mg Take 1 [facility] n 6-16 -07 tablet by [facility] of (LEVAQUIN) 00:00: 00:00 mouth [place] 500 mg 00 :00 every 24 Medical tablet (twenty-fo Branch ur) hours. meclizine 2022-0 Yes [id number] 25mg Take 1 [facility] nivers 25 mg 6-01 tablet by [facility] of tablet 00:00: mouth 3 [place] 00 (three) Medical times Branch daily as needed for Dizziness. Diclofenac 2022-0 Yes [id number] Apply to [facility] Sodium 6-01 area(s) 4 ity of (VOLTAREN) 00:00: (four) [place] 1 % gel 00 times Medical daily. Branch Apply 4 g qid Lidocaine 5 Yes [id number] Apply to [facility] % cream 6-01 area(s) 2 ity of 00:00: (two) [place] 00 times Medical daily as Branch needed for Pain (scale 4-6). Apply 5g to affected areas BID PRN pseudoephed 0 Yes [id number] 120mg Take 1 [facility] rine SA 6-01 tablet by [facility] of (SUDAFED 12 00:00: mouth in [place] HOUR) 120 00 the Medical mg SR morning Branch tablet and 1 tablet in the evening. gabapentin Yes [id number] 200mg Take 2 [facility] 100 mg 6-01 capsules it[facility] of capsule 00:00: by mouth [place] 00 in the Medical morning Branch and 2 capsules in the evening. lisinopriL- Yes [id number] 1{tbl} Take 1 [facility] hydrochloro 6-01 tablet by it[facility] of thiazide 00:00: mouth in [place] 20-25 mg 00 the Medical per tablet morning. Branc h FLUoxetine 0 Yes [id number] 20mg Take 1 [facility] vers 20 mg 6-01 tablet by [facility] of tablet 00:00: mouth in [place] 00 the Medical morning. Branch Insulin Yes [id number] 50U inject 50 [facility] Detemir 6-01 Units [facility] (LEVEMIR 00:00: [place] FLEXTOU[place] 00 skin in Medical U-100 the Branch INSULN) 100 morning unit/mL (3 and 50 mL) Units in injection the evening. inject with meals. metformin Yes [id number] TAKE 2 [facility] nivers ER 500 mg 6-01 TABLETS BY ity of 24 hr 00:00: MOUTH 2 [place] tablet 00 TIMES Medical DAILY WITH Branch MEALS. insulin Yes [id number] INJECT [facility] vers aspart 6-01 10-30 ity of U-100 00:00: UNITS [place] (NOVOLOG 00 UNDER THE Medica l FLEXPEN SKIN 3 Branch U-100 (THREE) INSULIN) TIMES 100 unit/mL DAILY (3 mL) BEFORE injection MEALS. meclizine 0 Yes [id number] 25mg Take 1 [facility] nivers 25 mg 6-01 tablet by ity of tablet 00:00: mouth 3 [place] 00 (three) Medical times Branch daily as needed for Dizziness. Diclofenac 0 Yes [id number] Apply to [facility] Sodium 6- area(s) 4 ity of (VOLTAREN) 00:00: (four) [place] 1 % gel 00 times Medical daily. Branch Apply 4 g qid Lidocaine 5 0 Yes [id number] Apply to [facility] % cream 6-01 area(s) 2 ity of 00:00: (two) [place] 00 times Medical daily as Branch needed for Pain (scale 4-6). Apply 5g to affected areas BID PRN pseudoephed 0 Yes [id number] 120mg Take 1 [facility] rine SA 6-01 tablet by it[facility] of (SUDAFED 12 00:00: mouth in [place] HOUR) 120 00 the Medical mg SR morning Branch tablet and 1 tablet in the evening. gabapentin 0 Yes [id number] 200mg Take 2 [facility] 100 mg 6- capsules it[facility] of capsule 00:00: by mouth [place] 00 in the Medical morning Branch and 2 capsules in the evening. lisinopriL- 0 Yes [id number] 1{tbl} Take 1 [facility] hydrochloro 6- tablet by it[facility] of thiazide 00:00: mouth in [place] 20-25 mg 00 the Medical per tablet morning. Branc h FLUoxetine 0 Yes [id number] 20mg Take 1 [facility] vers 20 mg 6-01 tablet by [facility] of tablet 00:00: mouth in [place] 00 the Medical morning. Branch Insulin Yes [id number] 50U inject 50 [facility] Detemir 6-01 Units [facility] of (LEVEMIR 00:00: [place] FLEXTOU[place] 00 skin in Medical U-100 the Branch INSULN) 100 morning unit/mL (3 and 50 mL) Units in injection the evening. inject with meals. metformin Yes [id number] TAKE 2 [facility] n[facility] ER 500 mg 6-01 TABLETS BY ity of 24 hr 00:00: MOUTH 2 [place] tablet 00 TIMES Medical DAILY WITH Branch MEALS. insulin Yes [id number] INJECT [facility] vers aspart 6-01 10-30 ity of U-100 00:00: UNITS [place] (NOVOLOG 00 UNDER THE Medica l FLEXPEN SKIN 3 Branch U-100 (THREE) INSULIN) TIMES 100 unit/mL DAILY (3 mL) BEFORE injection MEALS. meclizine Yes [id number] 25mg Take 1 [facility] nivers 25 mg 6-01 tablet by ity of tablet 00:00: mouth 3 [place] 00 (three) Medical times Branch daily as needed for Dizziness. Diclofenac Yes [id number] Apply to [facility] Sodium 6-01 area(s) 4 ity of (VOLTAREN) 00:00: (four) [place] 1 % gel 00 times Medical daily. Branch Apply 4 g qid Lidocaine 5 0 Yes [id number] Apply to [facility] % cream 6- area(s) 2 ity of 00:00: (two) [place] 00 times Medical daily as Branch needed for Pain (scale 4-6). Apply 5g to affected areas BID PRN pseudoephed 0 Yes [id number] 120mg Take 1 [facility] rine SA 6-01 tablet by [facility] of (SUDAFED 12 00:00: mouth in [place] HOUR) 120 00 the Medical mg SR morning Branch tablet and 1 tablet in the evening. gabapentin Yes [id number] 200mg Take 2 [facility] 100 mg 6- capsules ity of capsule 00:00: by mouth [place] 00 in the Medical morning Branch and 2 capsules in the evening. lisinopriL- Yes [id number] 1{tbl} Take 1 [facility] hydrochloro 6-01 tablet by it[facility] of thiazide 00:00: mouth in [place] 20-25 mg 00 the Medical per tablet morning. Branc h FLUoxetine Yes [id number] 20mg Take 1 [facility] vers 20 mg 6-01 tablet by [facility] of tablet 00:00: mouth in [place] 00 the Medical morning. Branch Insulin Yes [id number] 50U inject 50 [facility] Detemir 6-01 Units [facility] of (LEVEMIR 00:00: [place] FLEXTOU[place] 00 skin in Medical U-100 the Branch INSULN) 100 morning unit/mL (3 and 50 mL) Units in injection the evening. inject with meals. metformin Yes [id number] TAKE 2 [facility] [place] 500 mg 6-01 TABLETS BY it[facility] of 24 hr 00:00: MOUTH 2 [place] tablet 00 TIMES Medical DAILY WITH Branch MEALS. insulin Yes [id number] INJECT [facility] vers aspart 6-01 10-30 ity of U-100 00:00: UNITS [place] (NOVOLOG 00 UNDER THE Medica l FLEXPEN SKIN 3 Branch U-100 (THREE) INSULIN) TIMES 100 unit/mL DAILY (3 mL) BEFORE injection MEALS. meclizine Yes [id number] 25mg Take 1 [facility] nivers 25 mg 6-01 tablet by it[facility] of tablet 00:00: mouth 3 [place] 00 (three) Medical times Branch daily as needed for Dizziness. Diclofenac 0 Yes [id number] Apply to [facility] Sodium 6-01 area(s) 4 ity of (VOLTAREN) 00:00: (four) [place] 1 % gel 00 times Medical daily. Branch Apply 4 g qid Lidocaine 5 0 Yes [id number] Apply to [facility] % cream 6-01 area(s) 2 ity of 00:00: (two) [place] 00 times Medical daily as Branch needed for Pain (scale 4-6). Apply 5g to affected areas BID PRN pseudoephed 0 Yes [id number] 120mg Take 1 [facility] rine SA 6-01 tablet by [facility] of (SUDAFED 12 00:00: mouth [place] HOUR) 120 00 the Medical mg SR morning Branch tablet and 1 tablet in the evening. gabapentin 0 Yes [id number] 200mg Take 2 [facility] 100 mg 6-01 capsules it[facility] of capsule 00:00: by mouth [place] 00 in the Medical morning Branch and 2 capsules in the evening. lisinopriL- Yes [id number] 1{tbl} Take 1 [facility] hydrochloro 6-01 tablet by ity of thiazide 00:00: mouth in [place] 20-25 mg 00 the Medical per tablet morning. Bran h FLUoxetine 0 Yes [id number] 20mg Take 1 [facility] vers 20 mg 6-01 tablet by [facility] of tablet 00:00: mouth in [place] 00 the Medical morning. Branch Insulin 0 Yes [id number] 50U inject 50 [facility] Detemir 6-01 Units [facility] of (LEVEMIR 00:00: [place] FLEXTOUCH 00 skin in Medical U-100 the Branch INSULN) 100 morning unit/mL (3 and 50 mL) Units in injection the evening. inject with meals. metformin Yes [id number] TAKE 2 [facility] ER 500 mg 6-01 TABLETS BY it[facility] of 24 hr 00:00: MOUTH 2 [place] tablet 00 TIMES Medical DAILY WITH Branch MEALS. insulin Yes [id number] INJECT [facility] vers aspart 6- 10-30 ity of U-100 00:00: UNITS [place] (NOVOLOG 00 UNDER THE Medica l FLEXPEN SKIN 3 Branch U-100 (THREE) INSULIN) TIMES 100 unit/mL DAILY (3 mL) BEFORE injection MEALS. meclizine Yes [id number] 25mg Take 1 [facility] nivers 25 mg 6- tablet by ity of tablet 00:00: mouth 3 [place] 00 (three) Medical times Branch daily as needed for Dizziness. Diclofenac Yes [id number] Apply to [facility] Sodium 6- area(s) 4 ity of (VOLTAREN) 00:00: (four) [place] 1 % gel 00 times Medical daily. Branch Apply 4 g qid Lidocaine 5 Yes [id number] Apply to [facility] % cream 6- area(s) 2 ity of 00:00: (two) [place] 00 times Medical daily as Branch needed for Pain (scale 4-6). Apply 5g to affected areas BID PRN pseudoephed Yes [id number] 120mg Take 1 [facility] rine SA 6-01 tablet by [facility] of (SUDAFED 12 00:00: mouth [place] HOUR) 120 00 the Medical mg SR morning Branch tablet and 1 tablet in the evening. gabapentin 0 Yes [id number] 200mg Take 2 [facility] 100 mg 6- capsules it[facility] of capsule 00:00: by mouth [place] 00 in the Medical morning Branch and 2 capsules in the evening. lisinopriL- Yes [id number] 1{tbl} Take 1 [facility] hydrochloro 6-01 tablet by ity of thiazide 00:00: mouth in [place] 20-25 mg 00 the Medical per tablet morning. Branc h FLUoxetine 0 Yes [id number] 20mg Take 1 [facility] vers 20 mg 6-01 tablet by it[facility] of tablet 00:00: mouth in [place] 00 the Medical morning. Branch Insulin Yes [id number] 50U inject 50 [facility] Detemir 6-01 Units [facility] of (LEVEMIR 00:00: [place] FLEXTOUCH 00 skin in Medical U-100 the Branch INSULN) 100 morning unit/mL (3 and 50 mL) Units in injection the evening. inject with meals. metformin Yes [id number] TAKE 2 [facility] n[facility] ER 500 mg - TABLETS BY ity of 24 hr 00:00: MOUTH 2 [place] tablet 00 TIMES Medical DAILY WITH Branch MEALS. insulin Yes [id number] INJECT [facility] vers aspart 08-28 10-30 ity of U-100 00:00: UNITS [place] (NOVOLOG 00 UNDER THE Medica l FLEXPEN SKIN 3 Branch U-100 (THREE) INSULIN) TIMES 100 unit/mL DAILY (3 mL) BEFORE injection MEALS. meclizine Yes [id number] 25mg Take 1 [facility] nivers 25 mg 6- tablet by ity of tablet 00:00: mouth 3 [place] 00 (three) Medical times Branch daily as needed for Dizziness. Diclofenac Yes [id number] Apply to [facility] Sodium 08-28 area(s) 4 ity of (VOLTAREN) 00:00: (four) [place] 1 % gel 00 times Medical daily. Branch Apply 4 g qid Lidocaine 5 Yes [id number] Apply to [facility] % cream 08-28 area(s) 2 ity of 00:00: (two) [place] 00 times Medical daily as Branch needed for Pain (scale 4-6). Apply 5g to affected areas BID PRN pseudoephed Yes [id number] 120mg Take 1 [facility] rine SA - tablet by ity of (SUDAFED 12 00:00: mouth in [place] HOUR) 120 00 the Medical mg SR morning Branch tablet and 1 tablet in the evening. gabapentin Yes [id number] 200mg Take 2 [facility] 100 mg 6- capsules ity of capsule 00:00: by mouth [place] 00 in the Medical morning Branch and 2 capsules in the evening. lisinopriL- 0 Yes [id number] 1{tbl} Take 1 [facility] hydrochloro 6- tablet by ity of thiazide 00:00: mouth in [place] 20-25 mg 00 the Medical per tablet morning. Branc h FLUoxetine 0 Yes [id number] 20mg Take 1 [facility] vers 20 mg 6- tablet by [facility] of tablet 00:00: mouth in [place] 00 the Medical morning. Branch Insulin Yes [id number] 50U inject 50 [facility] Detemir 6-01 Units [facility] of (LEVEMIR 00:00: [place] FLEXTOUCH 00 skin in Medical U-100 the Branch INSULN) 100 morning unit/mL (3 and 50 mL) Units in injection the evening. inject with meals. metformin Yes [id number] TAKE 2 [facility] n[facility] ER 500 mg 6- TABLETS BY ity of 24 hr 00:00: MOUTH 2 [place] tablet 00 TIMES Medical DAILY WITH Branch MEALS. insulin Yes [id number] INJECT [facility] vers aspart 08-28 10-30 ity of U-100 00:00: UNITS [place] (NOVOLOG 00 UNDER THE Medica l FLEXPEN SKIN 3 Branch U-100 (THREE) INSULIN) TIMES 100 unit/mL DAILY (3 mL) BEFORE injection MEALS. meclizine Yes [id number] 25mg Take 1 [facility] nivers 25 mg 6- tablet by ity of tablet 00:00: mouth 3 [place] 00 (three) Medical times Branch daily as needed for Dizziness. Diclofenac Yes [id number] Apply to [facility] Sodium - area(s) 4 ity of (VOLTAREN) 00:00: (four) [place] 1 % gel 00 times Medical daily. Branch Apply 4 g qid Lidocaine 5 Yes [id number] Apply to [facility] % cream 6-01 area(s) 2 ity of 00:00: (two) [place] 00 times Medical daily as Branch needed for Pain (scale 4-6). Apply 5g to affected areas BID PRN pseudoephed Yes [id number] 120mg Take 1 [facility] rine SA 6-01 tablet by ity of (SUDAFED 12 00:00: mouth in [place] HOUR) 120 00 the Medical mg SR morning Branch tablet and 1 tablet in the evening. gabapentin 0 Yes [id number] 200mg Take 2 [facility] 100 mg 6-01 capsules ity of capsule 00:00: by mouth [place] 00 in the Medical morning Branch and 2 capsules in the evening. lisinopriL- 0 Yes [id number] 1{tbl} Take 1 [facility] hydrochloro 6-01 tablet by ity of thiazide 00:00: mouth in [place] 20-25 mg 00 the Medical per tablet morning. Branc h FLUoxetine 0 Yes [id number] 20mg Take 1 [facility] vers 20 mg 6-01 tablet by it[facility] of tablet 00:00: mouth in [place] 00 the Medical morning. Branch Insulin Yes [id number] 50U inject 50 [facility] Detemir 6-01 Units it[facility] of (LEVEMIR 00:00: [place] FLEXTOUCH 00 skin in Medical U-100 the Branch INSULN) 100 morning unit/mL (3 and 50 mL) Units in injection the evening. inject with meals. metformin Yes [id number] TAKE 2 [facility] nivers ER 500 mg 6-01 TABLETS BY ity of 24 hr 00:00: MOUTH 2 [place] tablet 00 TIMES Medical DAILY WITH Branch MEALS. insulin Yes [id number] INJECT [facility] vers aspart 6- 10-30 ity of U-100 00:00: UNITS [place] (NOVOLOG 00 UNDER THE Medica l FLEXPEN SKIN 3 Branch U-100 (THREE) INSULIN) TIMES 100 unit/mL DAILY (3 mL) BEFORE injection MEALS. meclizine Yes [id number] 25mg Take 1 [facility] nivers 25 mg 6-01 tablet by ity of tablet 00:00: mouth 3 [place] 00 (three) Medical times Branch daily as needed for Dizziness. Diclofenac Yes [id number] Apply to [facility] Sodium 6- area(s) 4 ity of (VOLTAREN) 00:00: (four) [place] 1 % gel 00 times Medical daily. Branch Apply 4 g qid Lidocaine 5 2022-0 Yes [id number] Apply to [facility] % cream 6-01 area(s) 2 ity of 00:00: (two) [place] 00 times Medical daily as Branch needed for Pain (scale 4-6). Apply 5g to affected areas BID PRN gabapentin 2022-0 Yes [id number] 200mg Take 2 [facility] 100 mg 6-01 capsules ity of capsule 00:00: by mouth [place] 00 in the Medical morning Branch and 2 capsules in the evening. lisinopriL- 2022-0 Yes [id number] 1{tbl} Take 1 [facility] hydrochloro 6-01 tablet by ity of thiazide 00:00: mouth in [place] 20-25 mg 00 the Medical per tablet morning. Branc h FLUoxetine 2022-0 Yes [id number] 20mg Take 1 [facility] vers 20 mg 6-01 tablet by ity of tablet 00:00: mouth in [place] 00 the Medical morning. Branch metformin 2022-0 Yes [id number] TAKE 2 [facility] nivers ER 500 mg 6-01 TABLETS BY ity of 24 hr 00:00: MOUTH 2 [place] tablet 00 TIMES Medical DAILY WITH Branch MEALS. meclizine 2022-0 Yes [id number] 25mg Take 1 [facility] nivers 25 mg 6-01 tablet by ity of tablet 00:00: mouth 3 [place] 00 (three) Medical times Branch daily as needed for Dizziness. Diclofenac 2022-0 Yes [id number] Apply to [facility] Sodium 6-01 area(s) 4 ity of (VOLTAREN) 00:00: (four) [place] 1 % gel 00 times Medical daily. Branch Apply 4 g qid Lidocaine 5 2022-0 Yes [id number] Apply to [facility] % cream 6-01 area(s) 2 ity of 00:00: (two) [place] 00 times Medical daily as Branch needed for Pain (scale 4-6). Apply 5g to affected areas BID PRN gabapentin 2022-0 Yes [id number] 200mg Take 2 [facility] 100 mg 6-01 capsules ity of capsule 00:00: by mouth [place] 00 in the Medical morning Branch and 2 capsules in the evening. lisinopriL- 2022-0 Yes [id number] 1{tbl} Take 1 [facility] hydrochloro 6-01 tablet by ity of thiazide 00:00: mouth in [place] 20-25 mg 00 the Medical per tablet morning. Bran h FLUoxetine 2022-0 Yes [id number] 20mg Take 1 [facility] vers 20 mg 6-01 tablet by ity of tablet 00:00: mouth in [place] 00 the Medical morning. Branch metformin 2022-0 Yes [id number] TAKE 2 [facility] nivers ER 500 mg 6-01 TABLETS BY ity of 24 hr 00:00: MOUTH 2 [place] tablet 00 TIMES Medical DAILY WITH [place] MEALS. meclizine 2022-0 Yes [id number] 25mg Take 1 [facility] nivers 25 mg 6-01 tablet by ity of tablet 00:00: mouth 3 [place] 00 (three) Medical times Branch daily as needed for Dizziness. Diclofenac 2022-0 Yes [id number] Apply to [facility] Sodium 6-01 area(s) 4 ity of (VOLTAREN) 00:00: (four) [place] 1 % gel 00 times Medical daily. Branch Apply 4 g qid Lidocaine 5 2022-0 Yes [id number] Apply to [facility] % cream 6-01 area(s) 2 ity of 00:00: (two) [place] 00 times Medical daily as Branch needed for Pain (scale 4-6). Apply 5g to affected areas BID PRN gabapentin 2022-0 Yes [id number] 200mg Take 2 [facility] 100 mg 6-01 capsules ity of capsule 00:00: by mouth [place] 00 in the Medical morning Branch and 2 capsules in the evening. lisinopriL- 2022-0 Yes [id number] 1{tbl} Take 1 [facility] hydrochloro 6-01 tablet by ity of thiazide 00:00: mouth in [place] 20-25 mg 00 the Medical per tablet morning. Branc h FLUoxetine 2022-0 Yes [id number] 20mg Take 1 [facility] vers 20 mg 6-01 tablet by ity of tablet 00:00: mouth in [place] 00 the Medical morning. Branch metformin 2022-0 Yes [id number] TAKE 2 [facility] nivers ER 500 mg 6-01 TABLETS BY ity of 24 hr 00:00: MOUTH 2 [place] tablet 00 TIMES Medical DAILY WITH Branch MEALS. meclizine 0 Yes [id number] 25mg Take 1 [facility] nivers 25 mg 6-01 tablet by ity of tablet 00:00: mouth 3 [place] 00 (three) Medical times Branch daily as needed for Dizziness. Diclofenac 0 Yes [id number] Apply to [facility] Sodium 6-01 area(s) 4 ity of (VOLTAREN) 00:00: (four) [place] 1 % gel 00 times Medical daily. Branch Apply 4 g qid Lidocaine 5 2022-0 Yes [id number] Apply to [facility] % cream 6-01 area(s) 2 ity of 00:00: (two) [place] 00 times Medical daily as Branch needed for Pain (scale 4-6). Apply 5g to affected areas BID PRN gabapentin 2022-0 Yes [id number] 200mg Take 2 [facility] 100 mg 6-01 capsules ity of capsule 00:00: by mouth [place] 00 in the Medical morning Branch and 2 capsules in the evening. lisinopriL- 2022-0 Yes [id number] 1{tbl} Take 1 [facility] hydrochloro 6-01 tablet by ity of thiazide 00:00: mouth in [place] 20-25 mg 00 the Medical per tablet morning. Branc h FLUoxetine 2022-0 Yes [id number] 20mg Take 1 [facility] vers 20 mg 6-01 tablet by ity of tablet 00:00: mouth in [place] 00 the Medical morning. Branch metformin 2022-0 Yes [id number] TAKE 2 [facility] nivers ER 500 mg 6-01 TABLETS BY ity of 24 hr 00:00: MOUTH 2 [place] tablet 00 TIMES Medical DAILY WITH Branch MEALS. meclizine 2022-0 Yes [id number] 25mg Take 1 [facility] nivers 25 mg 6-01 tablet by ity of tablet 00:00: mouth 3 [place] 00 (three) Medical times Branch daily as needed for Dizziness. Diclofenac 2022-0 Yes [id number] Apply to [facility] Sodium 6-01 area(s) 4 ity of (VOLTAREN) 00:00: (four) [place] 1 % gel 00 times Medical daily. Branch Apply 4 g qid Lidocaine 5 2022-0 Yes [id number] Apply to [facility] % cream 6-01 area(s) 2 ity of 00:00: (two) [place] 00 times Medical daily as Branch needed for Pain (scale 4-6). Apply 5g to affected areas BID PRN gabapentin 2022-0 Yes [id number] 200mg Take 2 [facility] 100 mg 6-01 capsules ity of capsule 00:00: by mouth [place] 00 in the Medical morning Branch and 2 capsules in the evening. lisinopriL- 2022-0 Yes [id number] 1{tbl} Take 1 [facility] hydrochloro 6-01 tablet by ity of thiazide 00:00: mouth in [place] 20-25 mg 00 the Medical per tablet morning. Bran h FLUoxetine 2022-0 Yes [id number] 20mg Take 1 [facility] vers 20 mg 6-01 tablet by ity of tablet 00:00: mouth in [place] 00 the Medical morning. Branch metformin 2022-0 Yes [id number] TAKE 2 [facility] nivers ER 500 mg 6-01 TABLETS BY ity of 24 hr 00:00: MOUTH 2 [place] tablet 00 TIMES Medical DAILY WITH Branch MEALS. meclizine 2022-0 Yes [id number] 25mg Take 1 [facility] nivers 25 mg 6-01 tablet by ity of tablet 00:00: mouth 3 [place] 00 (three) Medical times Branch daily as needed for Dizziness. Diclofenac 2022-0 Yes [id number] Apply to [facility] Sodium 6-01 area(s) 4 ity of (VOLTAREN) 00:00: (four) [place] 1 % gel 00 times Medical daily. Branch Apply 4 g qid Lidocaine 5 2022-0 Yes [id number] Apply to [facility] % cream 6-01 area(s) 2 ity of 00:00: (two) [place] 00 times Medical daily as Branch needed for Pain (scale 4-6). Apply 5g to affected areas BID PRN gabapentin 2022-0 Yes [id number] 200mg Take 2 [facility] 100 mg 6-01 capsules ity of capsule 00:00: by mouth [place] 00 in the Medical morning Branch and 2 capsules in the evening. lisinopriL- 2022-0 Yes [id number] 1{tbl} Take 1 [facility] hydrochloro 6-01 tablet by ity of thiazide 00:00: mouth in [place] 20-25 mg 00 the Medical per tablet morning. Bran h FLUoxetine 2022-0 Yes [id number] 20mg Take 1 [facility] vers 20 mg 6-01 tablet by ity of tablet 00:00: mouth in [place] 00 the Medical morning. Branch metformin 2022-0 Yes [id number] TAKE 2 [facility] nivers ER 500 mg 6-01 TABLETS BY ity of 24 hr 00:00: MOUTH 2 [place] tablet 00 TIMES Medical DAILY WITH Branch MEALS. meclizine 2022-0 Yes [id number] 25mg Take 1 [facility] nivers 25 mg 6-01 tablet by ity of tablet 00:00: mouth 3 [place] 00 (three) Medical times Branch daily as needed for Dizziness. Diclofenac 2022-0 Yes [id number] Apply to [facility] Sodium 6-01 area(s) 4 ity of (VOLTAREN) 00:00: (four) [place] 1 % gel 00 times Medical daily. Branch Apply 4 g qid Lidocaine 5 2022-0 Yes [id number] Apply to [facility] % cream 6-01 area(s) 2 ity of 00:00: (two) [place] 00 times Medical daily as Branch needed for Pain (scale 4-6). Apply 5g to affected areas BID PRN gabapentin 3-0 Yes [id number] 200mg Take 2 [facility] 100 mg 6-01 capsules ity of capsule 00:00: by mouth [place] 00 in the Medical morning Branch and 2 capsules in the evening. lisinopriL- 3-0 Yes [id number] 1{tbl} Take 1 [facility] hydrochloro 6-01 tablet by ity of thiazide 00:00: mouth in [place] 20-25 mg 00 the Medical per tablet morning. Bran h FLUoxetine 2022-0 Yes [id number] 20mg Take 1 [facility] vers 20 mg 6-01 tablet by ity of tablet 00:00: mouth in [place] 00 the Medical morning. Branch metformin 2022-0 Yes [id number] TAKE 2 [facility] nivers ER 500 mg 6-01 TABLETS BY ity of 24 hr 00:00: MOUTH 2 [place] tablet 00 TIMES Medical DAILY WITH Branch MEALS. meclizine 2022-0 Yes [id number] 25mg Take 1 [facility] nivers 25 mg 6-01 tablet by ity of tablet 00:00: mouth 3 [place] 00 (three) Medical times Branch daily as needed for Dizziness. Diclofenac 2022-0 Yes [id number] Apply to [facility] Sodium 6-01 area(s) 4 ity of (VOLTAREN) 00:00: (four) [place] 1 % gel 00 times Medical daily. Branch Apply 4 g qid Lidocaine 5 2022-0 Yes [id number] Apply to [facility] % cream 6- area(s) 2 ity of 00:00: (two) [place] 00 times Medical daily as Branch needed for Pain (scale 4-6). Apply 5g to affected areas BID PRN gabapentin 2022-0 Yes [id number] 200mg Take 2 [facility] 100 mg 6-01 capsules ity of capsule 00:00: by mouth [place] 00 in the Medical morning Branch and 2 capsules in the evening. lisinopriL- 2022-0 Yes [id number] 1{tbl} Take 1 [facility] hydrochloro 6-01 tablet by ity of thiazide 00:00: mouth in [place] 20-25 mg 00 the Medical per tablet morning. [facility] h FLUoxetine 2022-0 Yes [id number] 20mg Take 1 [facility] vers 20 mg 6-01 tablet by ity of tablet 00:00: mouth in [place] 00 the Medical morning. Branch metformin 2022-0 Yes [id number] TAKE 2 U nivers ER 500 mg 6-01 TABLETS BY ity of 24 hr 00:00: MOUTH 2 [place] tablet 00 TIMES Medical DAILY WITH Branch MEALS. meclizine 2022-0 Yes [id number] 25mg Take 1 [facility] nivers 25 mg 6-01 tablet by ity of tablet 00:00: mouth 3 [place] 00 (three) Medical times Branch daily as needed for Dizziness. Diclofenac 2022-0 Yes [id number] Apply to [facility] Sodium 6-01 area(s) 4 ity of (VOLTAREN) 00:00: (four) [place] 1 % gel 00 times Medical daily. Branch Apply 4 g qid Lidocaine 5 2022-0 Yes [id number] Apply to [facility] % cream 6-01 area(s) 2 ity of 00:00: (two) [place] 00 times Medical daily as Branch needed for Pain (scale 4-6). Apply 5g to affected areas BID PRN gabapentin 2022-0 Yes [id number] 200mg Take 2 [facility] 100 mg 6-01 capsules ity of capsule 00:00: by mouth [place] 00 in the Medical morning Branch and 2 capsules in the evening. lisinopriL- 2022-0 Yes [id number] 1{tbl} Take 1 [facility] hydrochloro 6-01 tablet by ity of thiazide 00:00: mouth in [place] 20-25 mg 00 the Medical per tablet morning. Bran h FLUoxetine 2022-0 Yes [id number] 20mg Take 1 [facility] vers 20 mg 6-01 tablet by ity of tablet 00:00: mouth in [place] 00 the Medical morning. Branch metformin 2022-0 Yes [id number] TAKE 2 [facility] nivers ER 500 mg 6-01 TABLETS BY ity of 24 hr 00:00: MOUTH 2 [place] tablet 00 TIMES Medical DAILY WITH Branch MEALS. meclizine 2022-0 Yes [id number] 25mg Take 1 [facility] nivers 25 mg 6-01 tablet by ity of tablet 00:00: mouth 3 [place] 00 (three) Medical times Branch daily as needed for Dizziness. Diclofenac 2022-0 Yes [id number] Apply to [facility] Sodium 6-01 area(s) 4 ity of (VOLTAREN) 00:00: (four) [place] 1 % gel 00 times Medical daily. Branch Apply 4 g qid Lidocaine 5 2022-0 Yes [id number] Apply to [facility] % cream 6-01 area(s) 2 ity of 00:00: (two) [place] 00 times Medical daily as Branch needed for Pain (scale 4-6). Apply 5g to affected areas BID PRN gabapentin 2022-0 Yes [id number] 200mg Take 2 [facility] 100 mg 6-01 capsules ity of capsule 00:00: by mouth [place] 00 in the Medical morning Branch and 2 capsules in the evening. lisinopriL- 2022-0 Yes [id number] 1{tbl} Take 1 [facility] hydrochloro 6-01 tablet by ity of thiazide 00:00: mouth in [place] 20-25 mg 00 the Medical per tablet morning. Bran h FLUoxetine 2022-0 Yes [id number] 20mg Take 1 [facility] vers 20 mg 6-01 tablet by ity of tablet 00:00: mouth in [place] 00 the Medical morning. Branch metformin 2022-0 Yes [id number] TAKE 2 [facility] nivers ER 500 mg 6-01 TABLETS BY ity of 24 hr 00:00: MOUTH 2 [place] tablet 00 TIMES Medical DAILY WITH Branch MEALS. meclizine 2022-0 Yes [id number] 25mg Take 1 [facility] nivers 25 mg 6-01 tablet by ity of tablet 00:00: mouth 3 [place] 00 (three) Medical times Branch daily as needed for Dizziness. Diclofenac 0 Yes [id number] Apply to [facility] Sodium 6-01 area(s) 4 ity of (VOLTAREN) 00:00: (four) [place] 1 % gel 00 times Medical daily. Branch Apply 4 g qid Lidocaine 5 2022-0 Yes [id number] Apply to [facility] % cream 6-01 area(s) 2 ity of 00:00: (two) [place] 00 times Medical daily as Branch needed for Pain (scale 4-6). Apply 5g to affected areas BID PRN gabapentin 2022-0 Yes [id number] 200mg Take 2 [facility] 100 mg 6-01 capsules ity of capsule 00:00: by mouth [place] 00 in the Medical morning Branch and 2 capsules in the evening. lisinopriL- 2022-0 Yes [id number] 1{tbl} Take 1 [facility] hydrochloro 6-01 tablet by ity of thiazide 00:00: mouth in [place] 20-25 mg 00 the Medical per tablet morning. Bran h FLUoxetine 2022-0 Yes [id number] 20mg Take 1 [facility] vers 20 mg 6-01 tablet by ity of tablet 00:00: mouth in [place] 00 the Medical morning. Branch metformin 2022-0 Yes [id number] TAKE 2 [facility] nivers ER 500 mg 6-01 TABLETS BY ity of 24 hr 00:00: MOUTH 2 [place] tablet 00 TIMES Medical DAILY WITH Branch MEALS. meclizine 2022-0 Yes [id number] 25mg Take 1 [facility] nivers 25 mg 6-01 tablet by ity of tablet 00:00: mouth 3 [place] 00 (three) Medical times Branch daily as needed for Dizziness. Diclofenac 2022-0 Yes [id number] Apply to [facility] Sodium 6-01 area(s) 4 ity of (VOLTAREN) 00:00: (four) [place] 1 % gel 00 times Medical daily. Branch Apply 4 g qid Lidocaine 5 2022-0 Yes [id number] Apply to [facility] % cream 6-01 area(s) 2 ity of 00:00: (two) [place] 00 times Medical daily as Branch needed for Pain (scale 4-6). Apply 5g to affected areas BID PRN gabapentin 2022-0 Yes [id number] 200mg Take 2 [facility] 100 mg 6-01 capsules ity of capsule 00:00: by mouth [place] 00 in the Medical morning Branch and 2 capsules in the evening. lisinopriL- 2022-0 Yes [id number] 1{tbl} Take 1 [facility] hydrochloro 6-01 tablet by ity of thiazide 00:00: mouth in [place] 20-25 mg 00 the Medical per tablet morning. Bran h FLUoxetine 2022-0 Yes [id number] 20mg Take 1 [facility] vers 20 mg 6-01 tablet by ity of tablet 00:00: mouth in [place] 00 the Medical morning. Branch metformin 2022-0 Yes [id number] TAKE 2 [facility] n[facility] ER 500 mg 6-01 TABLETS BY ity of 24 hr 00:00: MOUTH 2 [place] tablet 00 TIMES Medical DAILY WITH Branch MEALS. meclizine 2022-0 Yes [id number] 25mg Take 1 [facility] nivers 25 mg 6-01 tablet by ity of tablet 00:00: mouth 3 [place] 00 (three) Medical times Branch daily as needed for Dizziness. Diclofenac 2022-0 Yes [id number] Apply to [facility] Sodium 6-01 area(s) 4 ity of (VOLTAREN) 00:00: (four) [place] 1 % gel 00 times Medical daily. Branch Apply 4 g qid Lidocaine 5 2022-0 Yes [id number] Apply to [facility] % cream 6-01 area(s) 2 ity of 00:00: (two) [place] 00 times Medical daily as Branch needed for Pain (scale 4-6). Apply 5g to affected areas BID PRN gabapentin 2022-0 Yes [id number] 200mg Take 2 [facility] 100 mg 6-01 capsules ity of capsule 00:00: by mouth 00 in the Medical morning Branch and 2 capsules in the evening. lisinopriL- 2022-0 Yes [id number] 1{tbl} Take 1 [facility] hydrochloro 6-01 tablet by ity of thiazide 00:00: mouth in [place] 20-25 mg 00 the Medical per tablet morning. Branc h FLUoxetine 2022-0 Yes [id number] 20mg Take 1 [facility] vers 20 mg 6-01 tablet by ity of tablet 00:00: mouth in [place] 00 the Medical morning. Branch metformin 2022-0 Yes [id number] TAKE 2 [facility] n[facility] ER 500 mg 6-01 TABLETS BY ity of 24 hr 00:00: MOUTH 2 [place] tablet 00 TIMES Medical DAILY WITH Branch MEALS. meclizine 2022-0 Yes [id number] 25mg Take 1 [facility] nivers 25 mg 6-01 tablet by ity of tablet 00:00: mouth 3 [place] 00 (three) Medical times Branch daily as needed for Dizziness. Diclofenac 2022-0 Yes [id number] Apply to [facility] Sodium - area(s) 4 ity of (VOLTAREN) 00:00: (four) [place] 1 % gel 00 times Medical daily. Branch Apply 4 g qid Lidocaine 5 2022-0 Yes [id number] Apply to [facility] % cream 6-01 area(s) 2 ity of 00:00: (two) [place] 00 times Medical daily as Branch needed for Pain (scale 4-6). Apply 5g to affected areas BID PRN gabapentin 2022-0 Yes [id number] 200mg Take 2 [facility] 100 mg 6-01 capsules ity of capsule 00:00: by mouth [place] in the Medical morning Branch and 2 capsules in the evening. lisinopriL- 2022-0 Yes [id number] 1{tbl} Take 1 [facility] hydrochloro 6-01 tablet by ity of thiazide 00:00: mouth in [place] 20-25 mg 00 the Medical per tablet morning. Branc h FLUoxetine 2022-0 Yes [id number] 20mg Take 1 [facility] vers 20 mg 6-01 tablet by ity of tablet 00:00: mouth in [place] 00 the Medical morning. Branch metformin 2022-0 Yes [id number] TAKE 2 [facility] n[facility] ER 500 mg 6-01 TABLETS BY ity of 24 hr 00:00: MOUTH 2 [place] tablet 00 TIMES Medical DAILY WITH [place] MEALS. meclizine 0 Yes [id number] 25mg Take 1 [facility] nivers 25 mg 6-01 tablet by ity of tablet 00:00: mouth 3 [place] 00 (three) Medical times Branch daily as needed for Dizziness. Diclofenac 0 Yes [id number] Apply to [facility] Sodium 6- area(s) 4 ity of (VOLTAREN) 00:00: (four) [place] 1 % gel 00 times Medical daily. Branch Apply 4 g qid Lidocaine 5 0 Yes [id number] Apply to [facility] % cream 6-01 area(s) 2 ity of 00:00: (two) [place] 00 times Medical daily as Branch needed for Pain (scale 4-6). Apply 5g to affected areas BID PRN pseudoephed 0 Yes [id number] 120mg Take 1 [facility] rine SA 6-01 tablet by ity of (SUDAFED 12 00:00: mouth in [place] HOUR) 120 00 the Medical mg SR morning Branch tablet and 1 tablet in the evening. gabapentin 0 Yes [id number] 200mg Take 2 [facility] 100 mg 6-01 capsules ity of capsule 00:00: by mouth [place] 00 in the Medical morning Branch and 2 capsules in the evening. lisinopriL- 0 Yes [id number] 1{tbl} Take 1 [facility] hydrochloro 6-01 tablet by ity of thiazide 00:00: mouth in [place] 20-25 mg 00 the Medical per tablet morning. Branc h FLUoxetine 0 Yes [id number] 20mg Take 1 [facility] vers 20 mg 6-01 tablet by ity of tablet 00:00: mouth in [place] 00 the Medical morning. Branch Insulin 0 Yes [id number] 50U inject 50 [facility] Detemir 6-01 Units it[facility] of (LEVEMIR 00:00: [place] FLEXTOU[place] 00 skin in Medical U-100 the Branch INSULN) 100 morning unit/mL (3 and 50 mL) Units in injection the evening. inject with meals. metformin 0 Yes [id number] TAKE 2 [facility] n[facility] ER 500 mg 6-01 TABLETS BY ity of 24 hr 00:00: MOUTH 2 [place] tablet 00 TIMES Medical DAILY WITH Branch MEALS. insulin 0 Yes [id number] INJECT [facility] vers aspart 6-01 10-30 ity of U-100 00:00: UNITS [place] (NOVOLOG 00 UNDER THE Medica l FLEXPEN SKIN 3 Branch U-100 (THREE) INSULIN) TIMES 100 unit/mL DAILY (3 mL) BEFORE injection MEALS. meclizine Yes [id number] 25mg Take 1 [facility] nivers 25 mg 6-01 tablet by ity of tablet 00:00: mouth 3 [place] 00 (three) Medical times Branch daily as needed for Dizziness. Diclofenac 2022-0 Yes [id number] Apply to [facility] Sodium 6-01 area(s) 4 ity of (VOLTAREN) 00:00: (four) [place] 1 % gel 00 times Medical daily. Branch Apply 4 g qid Lidocaine 5 2022-0 Yes [id number] Apply to [facility] % cream 6-01 area(s) 2 ity of 00:00: (two) [place] 00 times Medical daily as Branch needed for Pain (scale 4-6). Apply 5g to affected areas BID PRN pseudoephed 2022-0 Yes [id number] 120mg Take 1 [facility] rine SA 6-01 tablet by ity of (SUDAFED 12 00:00: mouth in [place] HOUR) 120 00 the Medical mg SR morning Branch tablet and 1 tablet in the evening. gabapentin 0 Yes [id number] 200mg Take 2 [facility] 100 mg 6-01 capsules ity of capsule 00:00: by mouth [place] 00 in the Medical morning Branch and 2 capsules in the evening. lisinopriL- 0 Yes [id number] 1{tbl} Take 1 [facility] hydrochloro 6-01 tablet by ity of thiazide 00:00: mouth in [place] 20-25 mg 00 the Medical per tablet morning. Branc h FLUoxetine 2022-0 Yes [id number] 20mg Take 1 [facility] vers 20 mg 6-01 tablet by ity of tablet 00:00: mouth in [place] 00 the Medical morning. Branch Insulin 2022-0 Yes [id number] 50U inject 50 [facility] Detemir 6-01 Units ity of (LEVEMIR 00:00: [place] FLEXT[place] 00 skin in Medical U-100 the Branch INSULN) 100 morning unit/mL (3 and 50 mL) Units in injection the evening. inject with meals. metformin 2022-0 Yes [id number] TAKE 2 [facility] n[facility] ER 500 mg 6-01 TABLETS BY ity of 24 hr 00:00: MOUTH 2 [place] tablet 00 TIMES Medical DAILY WITH Branch MEALS. insulin Yes [id number] INJECT [facility] vers aspart 6- 10-30 ity of U-100 00:00: UNITS [place] (NOVOLOG 00 UNDER THE Medica l FLEXPEN SKIN 3 Branch U-100 (THREE) INSULIN) TIMES 100 unit/mL DAILY (3 mL) BEFORE injection MEALS. meclizine Yes [id number] 25mg Take 1 [facility] nivers 25 mg 6- tablet by ity of tablet 00:00: mouth 3 [place] 00 (three) Medical times Branch daily as needed for Dizziness. Diclofenac Yes [id number] Apply to [facility] Sodium 6- area(s) 4 ity of (VOLTAREN) 00:00: (four) [place] 1 % gel 00 times Medical daily. Branch Apply 4 g qid Lidocaine 5 Yes [id number] Apply to [facility] % cream 6- area(s) 2 ity of 00:00: (two) [place] 00 times Medical daily as Branch needed for Pain (scale 4-6). Apply 5g to affected areas BID PRN pseudoephed Yes [id number] 120mg Take 1 [facility] rine SA 6-01 tablet by ity of (SUDAFED 12 00:00: mouth in [place] HOUR) 120 00 the Medical mg SR morning Branch tablet and 1 tablet in the evening. gabapentin Yes [id number] 200mg Take 2 [facility] 100 mg 6- capsules ity of capsule 00:00: by mouth [place] 00 in the Medical morning Branch and 2 capsules in the evening. lisinopriL- Yes [id number] 1{tbl} Take 1 [facility] hydrochloro 6-01 tablet by ity of thiazide 00:00: mouth in [place] 20-25 mg 00 the Medical per tablet morning. Branc h FLUoxetine 0 Yes [id number] 20mg Take 1 [facility] vers 20 mg 6-01 tablet by ity of tablet 00:00: mouth in [place] 00 the Medical morning. Branch Insulin Yes [id number] 50U inject 50 [facility] Detemir 6-01 Units ity of (LEVEMIR 00:00: [place] FLEXT[place] 00 skin in Medical U-100 the Branch INSULN) 100 morning unit/mL (3 and 50 mL) Units in injection the evening. inject with meals. metformin Yes [id number] TAKE 2 [facility] nivers ER 500 mg 6- TABLETS BY ity of 24 hr 00:00: MOUTH 2 [place] tablet 00 TIMES Medical DAILY WITH Branch MEALS. insulin Yes [id number] INJECT [facility] vers aspart - 10-30 ity of U-100 00:00: UNITS [place] (NOVOLOG 00 UNDER THE Medica l FLEXPEN SKIN 3 Branch U-100 (THREE) INSULIN) TIMES 100 unit/mL DAILY (3 mL) BEFORE injection MEALS. meclizine Yes [id number] 25mg Take 1 [facility] nivers 25 mg 6- tablet by ity of tablet 00:00: mouth 3 [place] 00 (three) Medical times Branch daily as needed for Dizziness. Diclofenac Yes [id number] Apply to [facility] Sodium 6- area(s) 4 ity of (VOLTAREN) 00:00: (four) [place] 1 % gel 00 times Medical daily. Branch Apply 4 g qid Lidocaine 5 Yes [id number] Apply to [facility] % cream 6-01 area(s) 2 ity of 00:00: (two) [place] 00 times Medical daily as Branch needed for Pain (scale 4-6). Apply 5g to affected areas BID PRN pseudoephed 0 Yes [id number] 120mg Take 1 [facility] rine SA 6-01 tablet by ity of (SUDAFED 12 00:00: mouth in [place] HOUR) 120 00 the Medical mg SR morning Branch tablet and 1 tablet in the evening. gabapentin 0 Yes [id number] 200mg Take 2 [facility] 100 mg 6-01 capsules ity of capsule 00:00: by mouth [place] 00 in the Medical morning Branch and 2 capsules in the evening. lisinopriL- 0 Yes [id number] 1{tbl} Take 1 [facility] hydrochloro 6-01 tablet by ity of thiazide 00:00: mouth in [place] 20-25 mg 00 the Medical per tablet morning. Branc h FLUoxetine 2022-0 Yes [id number] 20mg Take 1 [facility] vers 20 mg 6-01 tablet by ity of tablet 00:00: mouth in [place] 00 the Medical morning. Branch Insulin 2023-0 Yes [id number] 50U inject 50 [facility] Detemir 6-01 Units ity of (LEVEMIR 00:00: [place] FLEXT[place] 00 skin in Medical U-100 the Branch INSULN) 100 morning unit/mL (3 and 50 mL) Units in injection the evening. inject with meals. metformin Yes [id number] TAKE 2 [facility] nivers ER 500 mg 6- TABLETS BY ity of 24 hr 00:00: MOUTH 2 [place] tablet 00 TIMES Medical DAILY WITH Branch MEALS. insulin Yes [id number] INJECT [facility] vers aspart 08-28 10-30 ity of U-100 00:00: UNITS [place] (NOVOLOG 00 UNDER THE Medica l FLEXPEN SKIN 3 Branch U-100 (THREE) INSULIN) TIMES 100 unit/mL DAILY (3 mL) BEFORE injection MEALS. meclizine Yes [id number] 25mg Take 1 [facility] nivers 25 mg 6- tablet by ity of tablet 00:00: mouth 3 [place] 00 (three) Medical times Branch daily as needed for Dizziness. Diclofenac Yes [id number] Apply to [facility] Sodium - area(s) 4 ity of (VOLTAREN) 00:00: (four) [place] 1 % gel 00 times Medical daily. Branch Apply 4 g qid Lidocaine 5 Yes [id number] Apply to [facility] % cream 6- area(s) 2 ity of 00:00: (two) [place] 00 times Medical daily as Branch needed for Pain (scale 4-6). Apply 5g to affected areas BID PRN pseudoephed 0 Yes [id number] 120mg Take 1 [facility] rine SA 6-01 tablet by ity of (SUDAFED 12 00:00: mouth in [place] HOUR) 120 00 the Medical mg SR morning Branch tablet and 1 tablet in the evening. gabapentin 0 Yes [id number] 200mg Take 2 [facility] 100 mg 6-01 capsules ity of capsule 00:00: by mouth [place] 00 in the Medical morning Branch and 2 capsules in the evening. lisinopriL- 0 Yes [id number] 1{tbl} Take 1 [facility] hydrochloro 6-01 tablet by ity of thiazide 00:00: mouth in [place] 20-25 mg 00 the Medical per tablet morning. Branc h FLUoxetine 2022-0 Yes [id number] 20mg Take 1 [facility] vers 20 mg 6-01 tablet by ity of tablet 00:00: mouth in [place] 00 the Medical morning. Branch Insulin Yes [id number] 50U inject 50 [facility] Detemir 6-01 Units ity of (LEVEMIR 00:00: [place] FLEXT[place] 00 skin in Medical U-100 the Branch INSULN) 100 morning unit/mL (3 and 50 mL) Units in injection the evening. inject with meals. metformin Yes [id number] TAKE 2 [facility] nivers ER 500 mg 6-01 TABLETS BY ity of 24 hr 00:00: MOUTH 2 [place] tablet 00 TIMES Medical DAILY WITH Branch MEALS. insulin Yes [id number] INJECT [facility] vers aspart 08-28 10-30 ity of U-100 00:00: UNITS [place] (NOVOLOG 00 UNDER THE Medica l FLEXPEN SKIN 3 Branch U-100 (THREE) INSULIN) TIMES 100 unit/mL DAILY (3 mL) BEFORE injection MEALS. pseudoephed 2022- No [id number] 120mg Take 1 [facility] rine SA 08-28 tablet by ity of (SUDAFED 12 00:00: 00:00 mouth in [place] HOUR) 120 00 :00 the Medical mg SR morning Branch tablet and 1 tablet in the evening. Insulin 2022- No [id number] 50U inject 50 [facility] Detemir 08-28-07 Units ity of (LEVEMIR 00:00: 00:00 under the [place] as FLEXTOUCH 00 :00 skin in Medical U-100 the Branch INSULN) 100 morning unit/mL (3 and 50 mL) Units in injection the evening. inject with meals. insulin 2022- No [id number] INJECT [facility] aspart 08-28 10-30 ity of U-100 00:00: 00:00 UNITS [place] (NOVOLOG 00 :00 UNDER THE Medica l FLEXPEN SKIN 3 Branch U-100 (THREE) INSULIN) TIMES 100 unit/mL DAILY (3 mL) BEFORE injection MEALS. pseudoephed 2022- No [id number] 120mg Take 1 [facility] rine SA 08-28- tablet by ity of (SUDAFED 12 00:00: 00:00 mouth in [place] HOUR) 120 00 :00 the Medical mg SR morning Branch tablet and 1 tablet in the evening. Insulin 2022- No [id number] 50U inject 50 [facility] Detemir 08-2807 Units ity of (LEVEMIR 00:00: 00:00 under the [place] FLEXTOUCH 00 :00 skin in Medical U-100 the Branch INSULN) 100 morning unit/mL (3 and 50 mL) Units in injection the evening. inject with meals. insulin 2022- No [id number] INJECT [facility] aspart 08-28 10-30 ity of U-100 00:00: 00:00 UNITS [place] (NOVOLOG 00 :00 UNDER THE Medica l FLEXPEN SKIN 3 Branch U-100 (THREE) INSULIN) TIMES 100 unit/mL DAILY (3 mL) BEFORE injection MEALS. pseudoephed 2022- No [id number] 120mg Take 1 [facility] rine SA 08-28 tablet by ity of (SUDAFED 12 00:00: 00:00 mouth in [place] HOUR) 120 00 :00 the Medical mg SR morning Branch tablet and 1 tablet in the evening. Insulin No [id number] 50U inject 50 [facility] Detemir 08-28 Units ity of (LEVEMIR 00:00: 00:00 under the [place] FLEXTOUCH 00 :00 skin in Medical U-100 the Branch INSULN) 100 morning unit/mL (3 and 50 mL) Units in injection the evening. inject with meals. insulin 2022- No [id number] INJECT [facility] aspart 08-28 10-30 ity of U-100 00:00: 00:00 UNITS [place] (NOVOLOG 00 :00 UNDER THE Medica l FLEXPEN SKIN 3 Branch U-100 (THREE) INSULIN) TIMES 100 unit/mL DAILY (3 mL) BEFORE injection MEALS. hydroCHLORO 2022- No [id number] 12.5mg Take 1 [facility] thiazide 08-28 tablet by ity o f 12.5 mg 00:00: 00:00 mouth in [place] tablet 00 :00 the Medical morning. Branch hydroCHLORO 2022- No [id number] 12.5mg Take 1 [facility] thiazide 6- 06- tablet by ity o f 12.5 mg 00:00: 00:00 mouth in [place] tablet 00 :00 the Medical morning. Branch phenazopyri 2022- No Take by Un [facility] dine HCl 5-03 05-03 mouth. ity of (AZO ORAL) 14:31: 00:00 [place] 51 :00 Medical Branch amoxicillin Yes [id number] 1{tbl} Take 1 [facility] -clavulanat 5-03 tablet by ity of e 00:00: mouth in [place] (AUGMENTIN) 00 the Medical 875-125 mg morning Branch per tablet and 1 tablet in the evening. phenazopyri Yes [id number] 200mg Take 1 [facility] dine 5-03 tablet by ity of (PYRIDIUM) 00:00: mouth in [facility] as 200 mg 00 the Medical tablet morning Branch and 1 tablet at noon and 1 tablet in the evening. Take after meals. amoxicillin Yes [id number] 1{tbl} Take 1 [facility] -clavulanat 5-03 tablet by ity of e 00:00: mouth in [place] (AUGMENTIN) 00 the Medical 875-125 mg morning Branch per tablet and 1 tablet in the evening. phenazopyri Yes [id number] 200mg Take 1 [facility] dine 5-03 tablet by ity of (PYRIDIUM) 00:00: mouth in [place] [facility] as 200 mg 00 the Medical tablet morning Branch and 1 tablet at noon and 1 tablet in the evening. Take after meals. amoxicillin 2022- No [id number] 1{tbl} Take 1 [facility] -clavulanat 5-03 06- tablet by it y of e 00:00: 00:00 mouth in [place] (AUGMENTIN) 00 :00 the Medical 875-125 mg morning Branch per tablet and 1 tablet in the evening. phenazopyri 2022- No [id number] 200mg Take 1 [facility] dine 5-03 06-01 tablet by ity of (PYRIDIUM) 00:00: 00:00 mouth in [place] 200 mg 00 :00 the Medical tablet morning Branch and 1 tablet at noon and 1 tablet in the evening. Take after meals. amoxicillin 2022- No [id number] 1{tbl} Take 1 [facility] -clavulanat 07-30 tablet by it y of e 00:00: 00:00 mouth in [place] (AUGMENTIN) 00 :00 the Medical 875-125 mg morning Branch per tablet and 1 tablet in the evening. phenazopyri 2022- No [id number] 200mg Take 1 [facility] dine 07-30 tablet by ity of (PYRIDIUM) 00:00: 00:00 mouth in [place] 200 mg 00 :00 the Medical tablet morning Branch and 1 tablet at noon and 1 tablet in the evening. Take after meals. FERROUS 0 Yes [id number] 325mg TAKE 1 [facility] vers SULFATE 325 4-24 TABLET BY ity of mg (65 mg 00:00: MOUTH IN [facility] s iron) 00 THE Medical tablet MORNING Branch AND 1 TABLET IN THE EVENING. NOVOLOG Yes [id number] INJECT Uni vers FLEXPEN 4-24 10-30 ity of U-100 00:00: UNITS [place] INSULIN 100 00 UNDER THE Med ical unit/mL (3 SKIN 3 Branch mL) (THREE) injection TIMES DAILY BEFORE MEALS. FERROUS 0 Yes [id number] 325mg TAKE 1 [facility] vers SULFATE 325 4-24 TABLET BY ity of mg (65 mg 00:00: MOUTH IN [place] [facility] s iron) 00 THE Medical tablet MORNING Branch AND 1 TABLET IN THE EVENING. NOVOLOG Yes [id number] INJECT Uni vers FLEXPEN 4-24 10-30 ity of U-100 00:00: UNITS [place] INSULIN 100 00 UNDER THE Med ical unit/mL (3 SKIN 3 Branch mL) (THREE) injection TIMES DAILY BEFORE MEALS. FERROUS 0 Yes [id number] 325mg TAKE 1 [facility] vers SULFATE 325 4-24 TABLET BY ity of mg (65 mg 00:00: [place] iron) 00 THE Medical tablet MORNING Branch AND 1 TABLET IN THE EVENING. NOVOLOG 0 Yes [id number] INJECT Uni vers FLEXPEN 4-24 10-30 ity of U-100 00:00: UNITS [place] INSULIN 100 00 UNDER THE Med ical unit/mL (3 SKIN 3 Branch mL) (THREE) injection TIMES DAILY BEFORE MEALS. FERROUS 0 Yes [id number] 325mg TAKE 1 [facility] vers SULFATE 325 4-24 TABLET BY ity of mg (65 mg 00:00: M[place]TH IN [place] iron) 00 THE Medical tablet MORNING Branch AND 1 TABLET IN THE EVENING. NOVOLOG 2022-0 Yes [id number] INJECT Uni vers FLEXPEN 4-24 10-30 ity of U-100 00:00: UNITS [place] INSULIN 100 00 UNDER THE Med ical unit/mL (3 SKIN 3 Branch mL) (THREE) injection TIMES DAILY BEFORE MEALS. FERROUS 2022-0 Yes [id number] 325mg TAKE 1 [facility] vers SULFATE 325 4-24 TABLET BY ity of mg (65 mg 00:00: MOUTH IN [place] iron) 00 THE Medical tablet MORNING Branch AND 1 TABLET IN THE EVENING. NOVOLOG 2022-0 Yes [id number] INJECT Uni vers FLEXPEN 4-24 10-30 ity of U-100 00:00: UNITS [place] INSULIN 100 00 UNDER THE Med ical unit/mL (3 SKIN 3 Branch mL) (THREE) injection TIMES DAILY BEFORE MEALS. FERROUS 2022-0 Yes [id number] 325mg TAKE 1 [facility] vers SULFATE 325 4-24 TABLET BY ity of mg (65 mg 00:00: M[place]TH IN [place] iron) 00 THE Medical tablet MORNING Branch AND 1 TABLET IN THE EVENING. FERROUS 2022-0 Yes [id number] 325mg TAKE 1 [facility] vers SULFATE 325 4-24 TABLET BY ity of mg (65 mg 00:00: M[place]TH IN [place] iron) 00 THE Medical tablet MORNING Branch AND 1 TABLET IN THE EVENING. FERROUS 2022-0 Yes [id number] 325mg TAKE 1 [facility] vers SULFATE 325 4-24 TABLET BY ity of mg (65 mg 00:00: MOUTH IN [place] iron) 00 THE Medical tablet MORNING Branch AND 1 TABLET IN THE EVENING. FERROUS 2022-0 Yes [id number] 325mg TAKE 1 [facility] vers SULFATE 325 4-24 TABLET BY ity of mg (65 mg 00:00: MOUTH IN [place] iron) 00 THE Medical tablet MORNING Branch AND 1 TABLET IN THE EVENING. FERROUS 2022-0 Yes [id number] 325mg TAKE 1 [facility] vers SULFATE 325 4-24 TABLET BY ity of mg (65 mg 00:00: MOUTH IN [place] iron) 00 THE Medical tablet MORNING Branch AND 1 TABLET IN THE EVENING. FERROUS 2022-0 Yes [id number] 325mg TAKE 1 [facility] vers SULFATE 325 4-24 TABLET BY ity of mg (65 mg 00:00: MOUTH IN [place] iron) 00 THE Medical tablet MORNING Branch AND 1 TABLET IN THE EVENING. FERROUS 3-0 Yes [id number] 325mg TAKE 1 [facility] vers SULFATE 325 4-24 TABLET BY ity of mg (65 mg 00:00: MOUTH IN [place] iron) 00 THE Medical tablet MORNING Branch AND 1 TABLET IN THE EVENING. FERROUS 2022-0 Yes [id number] 325mg TAKE 1 [facility] vers SULFATE 325 4-24 TABLET BY ity of mg (65 mg 00:00: M[place]TH IN [place] iron) 00 THE Medical tablet MORNING Branch AND 1 TABLET IN THE EVENING. FERROUS 2022-0 Yes [id number] 325mg TAKE 1 [facility] vers SULFATE 325 4-24 TABLET BY ity of mg (65 mg 00:00: M[place]TH IN [place] iron) 00 THE Medical tablet MORNING Branch AND 1 TABLET IN THE EVENING. FERROUS 2022-0 Yes [id number] 325mg TAKE 1 [facility] vers SULFATE 325 4-24 TABLET BY ity of mg (65 mg 00:00: MOUTH IN [place] iron) 00 THE Medical tablet MORNING Branch AND 1 TABLET IN THE EVENING. FERROUS 2022-0 Yes [id number] 325mg TAKE 1 [facility] vers SULFATE 325 4-24 TABLET BY ity of mg (65 mg 00:00: MOUTH IN [place] iron) 00 THE Medical tablet MORNING Branch AND 1 TABLET IN THE EVENING. FERROUS 2022-0 Yes [id number] 325mg TAKE 1 [facility] vers SULFATE 325 4-24 TABLET BY ity of mg (65 mg 00:00: MOUTH IN [place] iron) 00 THE Medical tablet MORNING Branch AND 1 TABLET IN THE EVENING. FERROUS 2022-0 Yes [id number] 325mg TAKE 1 [facility] vers SULFATE 325 4-24 TABLET BY ity of mg (65 mg 00:00: MOUTH IN [place] iron) 00 THE Medical tablet MORNING Branch AND 1 TABLET IN THE EVENING. FERROUS 3-0 Yes [id number] 325mg TAKE 1 [facility] vers SULFATE 325 4-24 TABLET BY ity of mg (65 mg 00:00: MOUTH IN [place] iron) 00 THE Medical tablet MORNING Branch AND 1 TABLET IN THE EVENING. FERROUS 3-0 Yes [id number] 325mg TAKE 1 [facility] vers SULFATE 325 4-24 TABLET BY ity of mg (65 mg 00:00: MOUTH IN [place] iron) 00 THE Medical tablet MORNING Branch AND 1 TABLET IN THE EVENING. FERROUS 3-0 Yes [id number] 325mg TAKE 1 [facility] SULFATE 325 4-24 TABLET BY ity of mg (65 mg 00:00: [place]TH [place] 00 THE Medical tablet MORNING Branch AND 1 TABLET IN THE EVENING. FERROUS 3-0 Yes [id number] 325mg TAKE 1 [facility] SULFATE 325 4-24 TABLET BY [facility] of mg (65 mg 00:00: M[place]TH [place] 00 THE Medical tablet MORNING Branch AND 1 TABLET IN THE EVENING. FERROUS 2022-0 Yes [id number] 325mg TAKE 1 [facility] SULFATE 325 4-24 TABLET BY [facility] of mg (65 mg 00:00: MOUTH [place] 00 THE Medical tablet MORNING Branch AND 1 TABLET IN THE EVENING. FERROUS 2022-0 Yes [id number] 325mg TAKE 1 [facility] SULFATE 325 4-24 TABLET BY [facility] of mg (65 mg 00:00: MOUTH [place] 00 THE Medical tablet MORNING Branch AND 1 TABLET IN THE EVENING. FERROUS 2022-0 Yes [id number] 325mg TAKE 1 [facility] SULFATE 325 4-24 TABLET BY it[facility] of mg (65 mg 00:00: MOUTH [place] 00 THE Medical tablet MORNING Branch AND 1 TABLET IN THE EVENING. FERROUS 3-0 Yes [id number] 325mg TAKE 1 [facility] SULFATE 325 4-24 TABLET BY it[facility] of mg (65 mg 00:00: MOUTH [place] 00 THE Medical tablet MORNING Branch AND 1 TABLET IN THE EVENING. FERROUS 3-0 Yes [id number] 325mg TAKE 1 [facility] SULFATE 325 4-24 TABLET BY ity of mg (65 mg 00:00: MOUTH [place] 00 THE Medical tablet MORNING Branch AND 1 TABLET IN THE EVENING. FERROUS 2023-0 Yes [id number] 325mg TAKE 1 [facility] SULFATE 325 4-24 TABLET BY it[facility] of mg (65 mg 00:00: MOUTH [place] 00 THE Medical tablet MORNING Branch AND 1 TABLET IN THE EVENING. FERROUS 2023-0 Yes [id number] 325mg TAKE 1 [facility] SULFATE 325 4-24 TABLET BY it[facility] of mg (65 mg 00:00: MOUTH [place] 00 THE Medical tablet MORNING Branch AND 1 TABLET IN THE EVENING. FERROUS 2022-0 Yes [id number] 325mg TAKE 1 [facility] SULFATE 325 4-24 TABLET BY it[facility] of mg (65 mg 00:00: MOUTH [place] 00 THE Medical tablet MORNING Branch AND 1 TABLET IN THE EVENING. FERROUS 2022-0 Yes [id number] 325mg TAKE 1 [facility] SULFATE 325 4-24 TABLET BY it[facility] of mg (65 mg 00:00: MOUTH [place] 00 THE Medical tablet MORNING Branch AND 1 TABLET IN THE EVENING. FERROUS 2022-0 Yes [id number] 325mg TAKE 1 [facility] SULFATE 325 4-24 TABLET BY ity of mg (65 mg 00:00: [place]TH [place] 00 THE Medical tablet MORNING Branch AND 1 TABLET IN THE EVENING. NOVOLOG 2022- No [id number] INJECT [facility] FLEXPEN 07-21 10-30 ity of U-100 00:00: 00:00 UNITS [place] INSULIN 100 00 :00 UNDER THE Med ical unit/mL (3 SKIN 3 Branch mL) (THREE) injection TIMES DAILY BEFORE MEALS. NOVOLOG 2022- No [id number] INJECT [facility] FLEXPEN 07-21 10-30 ity of U-100 00:00: 00:00 UNITS [place] INSULIN 100 00 :00 UNDER THE Med ical unit/mL (3 SKIN 3 Branch mL) (THREE) injection TIMES DAILY BEFORE MEALS. METFORMIN 0 Yes [id number] TAKE 2 U nivers ER 500 mg 3-31 TABLETS BY ity of 24 hr 00:00: MOUTH 2 [place] tablet 00 TIMES Medical DAILY WITH Branch MEALS. HYDROCHLORO 2022-0 Yes TAKE 1 Univ ers THIAZIDE 3-31 TABLET BY ity of 12.5 mg 00:00: MOUTH [place] tablet 00 EVERY DAY Medical IN THE Branch MORNING FOR 90 DAYS METFORMIN 2022-0 Yes [id number] TAKE 2 U nivers ER 500 mg 3-31 TABLETS BY ity of 24 hr 00:00: MOUTH 2 [place] tablet 00 TIMES Medical DAILY WITH Branch MEALS. HYDROCHLORO 0 Yes TAKE 1 Univ ers THIAZIDE 3-31 TABLET BY ity of 12.5 mg 00:00: MOUTH [place] tablet 00 EVERY DAY Medical IN THE Branch MORNING FOR 90 DAYS METFORMIN 2022-0 Yes [id number] TAKE 2 U nivers ER 500 mg 3-31 TABLETS BY ity of 24 hr 00:00: MOUTH 2 [place] tablet 00 TIMES Medical DAILY WITH Branch MEALS. HYDROCHLORO 0 Yes TAKE 1 Univ ers THIAZIDE 3-31 TABLET BY ity of 12.5 mg 00:00: MOUTH [place] tablet 00 EVERY DAY Medical IN THE [place] MORNING FOR 90 DAYS METFORMIN 2022-0 Yes [id number] TAKE 2 U nivers ER 500 mg 3-31 TABLETS BY ity of 24 hr 00:00: MOUTH 2 [place] tablet 00 TIMES Medical DAILY WITH Branch MEALS. HYDROCHLORO 0 Yes TAKE 1 Univ ers THIAZIDE 3-31 TABLET BY ity of 12.5 mg 00:00: MOUTH [place] tablet 00 EVERY DAY Medical IN THE [place] MORNING FOR 90 DAYS METFORMIN 0 Yes [id number] TAKE 2 U nivers ER 500 mg 3-31 TABLETS BY ity of 24 hr 00:00: MOUTH 2 [place] tablet 00 TIMES Medical DAILY WITH Branch MEALS. HYDROCHLORO Yes TAKE 1 Univ ers THIAZIDE 3-31 TABLET BY ity of 12.5 mg 00:00: MOUTH [place] tablet 00 EVERY DAY Medical IN THE [place] MORNING FOR 90 DAYS METFORMIN 0 Yes [id number] TAKE 2 U nivers ER 500 mg 3-31 TABLETS BY ity of 24 hr 00:00: MOUTH 2 [place] tablet 00 TIMES Medical DAILY WITH Branch MEALS. HYDROCHLORO 0 Yes TAKE 1 Univ ers THIAZIDE 3-31 TABLET BY ity of 12.5 mg 00:00: MOUTH [place] tablet 00 EVERY DAY Medical IN THE [place] MORNING FOR 90 DAYS METFORMIN 0 Yes [id number] TAKE 2 U nivers ER 500 mg 3-31 TABLETS BY ity of 24 hr 00:00: MOUTH 2 [place] tablet 00 TIMES Medical DAILY WITH Branch MEALS. HYDROCHLORO 0 Yes TAKE 1 Univ ers THIAZIDE 3-31 TABLET BY ity of 12.5 mg 00:00: MOUTH [place] tablet 00 EVERY DAY Medical IN THE [place] MORNING FOR 90 DAYS METFORMIN 2022-0 2022- No [id number] TAKE 2 [facility] ER 500 mg 3-31 - TABLETS BY ity of 24 hr 00:00: 00:00 MOUTH 2 [place] tablet 00 :00 TIMES Medical DAILY WITH Branch MEALS. HYDROCHLORO 2022-0 2022- No TAKE 1 Uni vers THIAZIDE 3-31 06-01 TABLET BY ity o f 12.5 mg 00:00: 00:00 MOUTH [place] tablet 00 :00 EVERY DAY Medical IN [facility] MORNING FOR 90 DAYS METFORMIN 3-0 3- No [id number] TAKE 2 Univers ER 500 mg 06-27 TABLETS BY ity of 24 hr 00:00: 00:00 MOUTH 2 [place] tablet 00 :00 TIMES Medical DAILY WITH [place] MEALS. HYDROCHLORO 2022-0 2022- No TAKE 1 Uni vers THIAZIDE 06-27 TABLET BY ity o f 12.5 mg 00:00: 00:00 MOUTH [place] tablet 00 :00 EVERY DAY Medical IN [facility] MORNING FOR 90 DAYS gabapentin 2023-0 Yes [id number] 200mg Take 2 [facility] 100 mg 2-16 capsules ity of capsule 00:00: by mouth [place] 00 in the [facility] and 2 capsules in the evening. gabapentin 2023-0 Yes [id number] 200mg Take 2 [facility] 100 mg 2-16 capsules ity of capsule 00:00: by mouth [place] 00 in the [facility] and 2 capsules in the evening. gabapentin 2023-0 Yes [id number] 200mg Take 2 [facility] 100 mg 2-16 capsules ity of capsule 00:00: by mouth [place] 00 in the [facility] and 2 capsules in the evening. gabapentin 2023-0 Yes [id number] 200mg Take 2 [facility] 100 mg 2-16 capsules ity of capsule 00:00: by mouth [place] 00 in the [facility] and 2 capsules in the evening. gabapentin 2023-0 Yes [id number] 200mg Take 2 [facility] 100 mg 2-16 capsules ity of capsule 00:00: by mouth [place] 00 in the [facility] and 2 capsules in the evening. gabapentin 2023-0 Yes [id number] 200mg Take 2 [facility] 100 mg 2-16 capsules ity of capsule 00:00: by mouth [place] 00 in the [facility] and 2 capsules in the evening. gabapentin 2023-0 Yes [id number] 200mg Take 2 [facility] 100 mg 2-16 capsules ity of capsule 00:00: by mouth [place] 00 in the [facility] and 2 capsules in the evening. gabapentin 2023-0 Yes [id number] 200mg Take 2 [facility] 100 mg 2-16 capsules ity of capsule 00:00: by mouth [place] 00 in the [facility] and 2 capsules in the evening. gabapentin 2023-0 Yes [id number] 200mg Take 2 [facility] 100 mg 2-16 capsules ity of capsule 00:00: by mouth [place] 00 in the Medical morning Branch and 2 capsules in the evening. gabapentin 2022- No [id number] 200mg Take 2 [facility] 100 mg 2-16 - capsules ity of capsule 00:00: 00:00 by mouth [place] 00 :00 in the Medical morning Branch and 2 capsules in the evening. gabapentin 2022- No [id number] 200mg Take 2 [facility] 100 mg 2-16 - capsules ity of capsule 00:00: 00:00 by mouth [place] 00 :00 in the Medical morning Branch and 2 capsules in the evening. LISINOPRIL- 2021-03 Yes [id number] TAKE 1 Univers HYDROCHLORO 2-19 TABLET BY ity of THIAZIDE 00:00: MOUTH [place] 20-25 mg 00 EVERY DAY Medica l per tablet Branch FLUOXETINE 2021-03 Yes [id number] TAKE 1 Uni vers 20 mg 2-19 TABLET BY ity of tablet 00:00: MOUTH [place] 00 EVERY DAY Medical Branch LISINOPRIL- 2021-03 Yes [id number] TAKE 1 Univers HYDROCHLORO 2-19 TABLET BY ity of THIAZIDE 00:00: MOUTH [place] 20-25 mg 00 EVERY DAY Medica l per tablet Branch FLUOXETINE 2021-03 Yes [id number] TAKE 1 Uni vers 20 mg 2-19 TABLET BY ity of tablet 00:00: MOUTH [place] 00 EVERY DAY Medical Branch LISINOPRIL- 2021-03 Yes [id number] TAKE 1 Univers HYDROCHLORO 2-19 TABLET BY ity of THIAZIDE 00:00: MOUTH [place] 20-25 mg 00 EVERY DAY Medica l per tablet Branch FLUOXETINE 2021-03 Yes [id number] TAKE 1 Uni vers 20 mg 2-19 TABLET BY ity of tablet 00:00: MOUTH [place] 00 EVERY DAY Medical Branch LISINOPRIL- 2021-03 Yes [id number] TAKE 1 Univers HYDROCHLORO 2-19 TABLET BY ity of THIAZIDE 00:00: MOUTH [place] 20-25 mg 00 EVERY DAY Medica l per tablet Branch FLUOXETINE 2021-03 Yes [id number] TAKE 1 Uni vers 20 mg 2-19 TABLET BY ity of tablet 00:00: MOUTH [place] 00 EVERY DAY Medical Branch LISINOPRIL- 2021-03 Yes [id number] TAKE 1 Univers HYDROCHLORO 2-19 TABLET BY ity of THIAZIDE 00:00: MOUTH [place] 20-25 mg 00 EVERY DAY Medica l per tablet Branch [facility] [place] 2021-03 Yes [id number] TAKE 1 Uni vers 20 mg 2-19 TABLET BY ity of tablet 00:00: MOUTH [place] 00 EVERY DAY Medical [place] LISINOPRIL- 2021-03 Yes [id number] TAKE 1 Univers HYDROCHLORO 2-19 TABLET BY ity of THIAZIDE 00:00: MOUTH [place] 20-25 mg 00 EVERY DAY Medica l per tablet Branch [facility] [place] 2021-03 Yes [id number] TAKE 1 Uni vers 20 mg 2-19 TABLET BY ity of tablet 00:00: MOUTH [place] 00 EVERY DAY Medical [place] LISINOPRIL- 2021-03 Yes [id number] TAKE 1 Univers HYDROCHLORO 2-19 TABLET BY ity of THIAZIDE 00:00: MOUTH [place] 20-25 mg 00 EVERY DAY Medica l per tablet Branch [facility] [place] 2021-03 Yes [id number] TAKE 1 Uni vers 20 mg 2-19 TABLET BY ity of tablet 00:00: MOUTH [place] 00 EVERY DAY Medical [place] LISINOPRIL 2021-03 Yes [id number] TAKE 1 Univers HYDROCHLORO 2-19 TABLET BY ity of THIAZIDE 00:00: MOUTH [place] 20-25 mg 00 EVERY DAY Medica l per tablet Branch [facility] [place] 2021-03 Yes [id number] TAKE 1 Uni vers 20 mg 2-19 TABLET BY ity of tablet 00:00: MOUTH [place] 00 EVERY DAY Medical [place] LISINOPRIL 2021-03 Yes [id number] TAKE 1 Univers HYDROCHLORO 2-19 TABLET BY ity of THIAZIDE 00:00: MOUTH [place] 20-25 mg 00 EVERY DAY Medica l per tablet Branch [facility] [place] 2021-03 Yes [id number] TAKE 1 Uni vers 20 mg 2-19 TABLET BY ity of tablet 00:00: MOUTH [place] 00 EVERY DAY Medical [place] LISINOPRIL 2021-03 Yes [id number] TAKE 1 Univers HYDROCHLORO 2-19 TABLET BY ity of THIAZIDE 00:00: MOUTH [place] 20-25 mg 00 EVERY DAY Medica l per tablet Branch [facility] [place] 2021-03 Yes [id number] TAKE 1 Uni vers 20 mg 2-19 TABLET BY ity of tablet 00:00: MOUTH [place] 00 EVERY DAY Medical [place] LISINOPRIL 2021-03 Yes [id number] TAKE 1 Univers HYDROCHLORO 2-19 TABLET BY ity of THIAZIDE 00:00: MOUTH [place] 20-25 mg 00 EVERY DAY Medica l per tablet Branch [facility] [place] 2021-03 Yes [id number] TAKE 1 Uni vers 20 mg 2-19 TABLET BY ity of tablet 00:00: MOUTH [place] 00 EVERY DAY Medical [place] LISINOPRIL- 2021-03 Yes [id number] TAKE 1 Univers HYDROCHLORO 2-19 TABLET BY ity of THIAZIDE 00:00: MOUTH [place] 20-25 mg 00 EVERY DAY Medica l per tablet Branch [facility] [place] 2021-03 Yes [id number] TAKE 1 Uni vers 20 mg 2-19 TABLET BY ity of tablet 00:00: MOUTH [place] 00 EVERY DAY Medical [place] LISINOPRIL- 2021-03 Yes [id number] TAKE 1 Univers HYDROCHLORO 2-19 TABLET BY ity of THIAZIDE 00:00: MOUTH [place] 20-25 mg 00 EVERY DAY Medica l per tablet Branch [facility] [place] 2021-03 Yes [id number] TAKE 1 Uni vers 20 mg 2-19 TABLET BY ity of tablet 00:00: MOUTH [place] 00 EVERY DAY Medical [place] LISINOPRIL- 2021-03 Yes [id number] TAKE 1 Univers HYDROCHLORO 2-19 TABLET BY ity of THIAZIDE 00:00: MOUTH [place] 20-25 mg 00 EVERY DAY Medica l per tablet Branch [facility] [place] 2021-03 Yes [id number] TAKE 1 Uni vers 20 mg 2-19 TABLET BY ity of tablet 00:00: MOUTH [place] 00 EVERY DAY Medical [place] LISINOPRIL- 2021-03- No [id number] TAKE 1 Univers HYDROCHLORO 2-19 06-01 TABLET BY it y of THIAZIDE 00:00: 00:00 MOUTH [place] 20-25 mg 00 :00 EVERY DAY Medica l per tablet Branch [facility] [place] 2021-03- No [id number] TAKE 1 [facility] 20 mg 2-19 06-01 TABLET BY ity of tablet 00:00: 00:00 MOUTH [place] 00 :00 EVERY DAY Medical [place] LISINOPRIL- 2021-03- No [id number] TAKE 1 Univers HYDROCHLORO 2-19 06-01 TABLET BY it y of THIAZIDE 00:00: 00:00 MOUTH [place] 20-25 mg 00 :00 EVERY DAY Medica l per tablet Branch [facility] [place] 2021-03- No [id number] TAKE 1 [facility] 20 mg 2-19 06-01 TABLET BY ity of tablet 00:00: 00:00 MOUTH [place] 00 :00 EVERY DAY Medical Branch LEVEMIR 2021-03 Yes [id number] 50U INJECT 50 Univers FLEXTOUCH 1-26 UNITS ity of U-100 00:00: UNDER THE [place] INSULN 100 00 SKIN 2 Medical unit/mL (3 (TWO) Branch mL) TIMES injection DAILY WITH MEALS. LEVEMIR 2021-03 Yes [id number] 50U INJECT 50 Univers FLEXTOUCH 1-26 UNITS ity of U-100 00:00: UNDER THE [place] INSULN 100 00 SKIN 2 Medical unit/mL (3 (TWO) Branch mL) TIMES injection DAILY WITH MEALS. LEVEMIR 2021-03 Yes [id number] 50U INJECT 50 Univers FLEXTOUCH 1-26 UNITS ity of U-100 00:00: UNDER THE [place] INSULN 100 00 SKIN 2 Medical unit/mL (3 (TWO) Branch mL) TIMES injection DAILY WITH MEALS. LEVEMIR 2021-03 Yes [id number] 50U INJECT 50 Univers FLEXTOUCH 1-26 UNITS ity of U-100 00:00: UNDER THE [place] INSULN 100 00 SKIN 2 Medical unit/mL (3 (TWO) Branch mL) TIMES injection DAILY WITH MEALS. LEVEMIR 2021-03 Yes [id number] 50U INJECT 50 Univers FLEXTOUCH 1-26 UNITS ity of U-100 00:00: UNDER THE [place] INSULN 100 00 SKIN 2 Medical unit/mL (3 (TWO) Branch mL) TIMES injection DAILY WITH MEALS. LEVEMIR 2021-03 Yes [id number] 50U INJECT 50 Univers FLEXTOUCH 1-26 UNITS ity of U-100 00:00: UNDER THE [place] INSULN 100 00 SKIN 2 Medical unit/mL (3 (TWO) Branch mL) TIMES injection DAILY WITH MEALS. LEVEMIR 2021-03 Yes [id number] 50U INJECT 50 Univers FLEXTOUCH 1-26 UNITS ity of U-100 00:00: UNDER THE [place] INSULN 100 00 SKIN 2 Medical unit/mL (3 (TWO) Branch mL) TIMES injection DAILY WITH MEALS. LEVEMIR 2021-03 Yes [id number] 50U INJECT 50 Univers FLEXTOUCH 1-26 UNITS ity of U-100 00:00: UNDER THE [place] INSULN 100 00 SKIN 2 Medical unit/mL (3 (TWO) Branch mL) TIMES injection DAILY WITH MEALS. LEVEMIR 2021-03 Yes [id number] 50U INJECT 50 Univers FLEXTOUCH 1-26 UNITS ity of U-100 00:00: UNDER THE [place] INSULN 100 00 SKIN 2 Medical unit/mL (3 (TWO) Branch mL) TIMES injection DAILY WITH MEALS. LEVEMIR 2021-03 Yes [id number] 50U INJECT 50 Univers FLEXTOUCH 1-26 UNITS ity of U-100 00:00: UNDER THE [place] INSULN 100 00 SKIN 2 Medical unit/mL (3 (TWO) Branch mL) TIMES injection DAILY WITH MEALS. LEVEMIR 2021-03 Yes [id number] 50U INJECT 50 Univers FLEXTOUCH 1-26 UNITS ity of U-100 00:00: UNDER THE [place] INSULN 100 00 SKIN 2 Medical unit/mL (3 (TWO) Branch mL) TIMES injection DAILY WITH MEALS. LEVEMIR 2021-03 Yes [id number] 50U INJECT 50 Univers FLEXTOUCH 1-26 UNITS ity of U-100 00:00: UNDER THE [place] INSULN 100 00 SKIN 2 Medical unit/mL (3 (TWO) Branch mL) TIMES injection DAILY WITH MEALS. LEVEMIR 2021-03 Yes [id number] 50U INJECT 50 Univers FLEXTOUCH 1-26 UNITS ity of U-100 00:00: UNDER THE [place] INSULN 100 00 SKIN 2 Medical unit/mL (3 (TWO) Branch mL) TIMES injection DAILY WITH MEALS. LEVEMIR 2021-03 Yes [id number] 50U INJECT 50 Univers FLEXTOUCH 1-26 UNITS ity of U-100 00:00: UNDER THE [place] INSULN 100 00 SKIN 2 Medical unit/mL (3 (TWO) Branch mL) TIMES injection DAILY WITH MEALS. LEVEMIR 2021-03 Yes [id number] 50U INJECT 50 Univers FLEXTOUCH 1-26 UNITS ity of U-100 00:00: UNDER THE [place] INSULN 100 00 SKIN 2 Medical unit/mL (3 (TWO) Branch mL) TIMES injection DAILY WITH MEALS. LEVEMIR 2021-03 Yes [id number] 50U INJECT 50 Univers FLEXTOUCH 1-26 UNITS ity of U-100 00:00: UNDER THE [place] INSULN 100 00 SKIN 2 Medical unit/mL (3 (TWO) Branch mL) TIMES injection DAILY WITH MEALS. LEVEMIR 2021-03 Yes [id number] 50U INJECT 50 Univers FLEXTOUCH 1-26 UNITS ity of U-100 00:00: UNDER THE [place] INSULN 100 00 SKIN 2 Medical unit/mL (3 (TWO) Branch mL) TIMES injection DAILY WITH MEALS. LEVEMIR 2021-03- No [id number] 50U INJECT 50 Univers FLEXTOUCH 1-26 06-01 UNITS ity of U-100 00:00: 00:00 UNDER THE [place] INSULN 100 00 :00 SKIN 2 Medical unit/mL (3 (TWO) Branch mL) TIMES injection DAILY WITH MEALS. LEVEMIR 2021-03- No [id number] 50U INJECT 50 Univers FLEXTOUCH 1-26 06-01 UNITS ity of U-100 00:00: 00:00 UNDER THE [place] INSULN 100 00 :00 SKIN 2 Medical unit/mL (3 (TWO) Branch mL) TIMES injection DAILY WITH MEALS. amoxicillin 2021-03 Yes [id number] 1{tbl} Take 1 Univers -clavulanat 1-22 9100 tablet by ity of e 00:00: mouth in [place] (AUGMENTIN) 00 the Medical 875-125 mg morning Branch per tablet and 1 tablet in the evening. amoxicillin 2021-03 Yes [id number] 1{tbl} Take 1 Univers -clavulanat 1-22 9100 tablet by ity of e 00:00: mouth in [place] (AUGMENTIN) 00 the Medical 875-125 mg morning Branch per tablet and 1 tablet in the evening. amoxicillin 2021-03 Yes [id number] 1{tbl} Take 1 Univers -clavulanat 1-22 9100 tablet by ity of e 00:00: mouth in [place] (AUGMENTIN) 00 the Medical 875-125 mg morning Branch per tablet and 1 tablet in the evening. amoxicillin 2021-03 Yes [id number] 1{tbl} Take 1 Univers -clavulanat 1-22 9100 tablet by ity of e 00:00: mouth in [place] (AUGMENTIN) 00 the Medical 875-125 mg morning Branch per tablet and 1 tablet in the evening. amoxicillin 2021-03 Yes [id number] 1{tbl} Take 1 Univers -clavulanat 1-22 9100 tablet by ity of e 00:00: mouth in [place] (AUGMENTIN) 00 the Medical 875-125 mg morning Branch per tablet and 1 tablet in the evening. amoxicillin 2021-03 Yes [id number] 1{tbl} Take 1 Univers -clavulanat 1-22 9100 tablet by ity of e 00:00: mouth in [place] (AUGMENTIN) 00 the Medical 875-125 mg morning Branch per tablet and 1 tablet in the evening. amoxicillin 2021-03 Yes [id number] 1{tbl} Take 1 Univers -clavulanat 1-22 9100 tablet by ity of e 00:00: mouth in [place] (AUGMENTIN) 00 the Medical 875-125 mg morning Branch per tablet and 1 tablet in the evening. amoxicillin 2021-03 Yes [id number] 1{tbl} Take 1 Univers -clavulanat 1-22 9100 tablet by ity of e 00:00: mouth in [place] (AUGMENTIN) 00 the Medical 875-125 mg morning Branch per tablet and 1 tablet in the evening. amoxicillin 2021-03 Yes [id number] 1{tbl} Take 1 Univers -clavulanat 1-22 9100 tablet by ity of e 00:00: mouth in [place] (AUGMENTIN) 00 the Medical 875-125 mg morning Branch per tablet and 1 tablet in the evening. amoxicillin 2021-03 Yes [id number] 1{tbl} Take 1 Univers -clavulanat 1-22 9100 tablet by ity of e 00:00: mouth in [place] (AUGMENTIN) 00 the Medical 875-125 mg morning Branch per tablet and 1 tablet in the evening. amoxicillin 2021-03 Yes [id number] 1{tbl} Take 1 Univers -clavulanat 1-22 9100 tablet by ity of e 00:00: mouth in [place] (AUGMENTIN) 00 the Medical 875-125 mg morning Branch per tablet and 1 tablet in the evening. amoxicillin 2021-03 Yes [id number] 1{tbl} Take 1 Univers -clavulanat 1-22 9100 tablet by ity of e 00:00: mouth in [place] (AUGMENTIN) 00 the Medical 875-125 mg morning Branch per tablet and 1 tablet in the evening. amoxicillin 2021-03 Yes [id number] 1{tbl} Take 1 Univers -clavulanat 1-22 9100 tablet by ity of e 00:00: mouth in [place] (AUGMENTIN) 00 the Medical 875-125 mg morning Branch per tablet and 1 tablet in the evening. amoxicillin 2021-03 Yes [id number] 1{tbl} Take 1 Univers -clavulanat 1-22 9100 tablet by ity of e 00:00: mouth in [place] (AUGMENTIN) 00 the Medical 875-125 mg morning Branch per tablet and 1 tablet in the evening. amoxicillin 2021-03 Yes [id number] 1{tbl} Take 1 Univers -clavulanat 1-22 9100 tablet by ity of e 00:00: mouth in [place] (AUGMENTIN) 00 the Medical 875-125 mg morning Branch per tablet and 1 tablet in the evening. amoxicillin 2021-03 Yes [id number] 1{tbl} Take 1 [facility] -clavulanat 1-22 9100 tablet by ity of e 00:00: mouth in [place] (AUGMENTIN) 00 the Medical 875-125 mg morning Branch per tablet and 1 tablet in the evening. amoxicillin 2021-03 Yes [id number] 1{tbl} Take 1 Univers -clavulanat 1-22 9100 tablet by ity of e 00:00: mouth in [place] (AUGMENTIN) 00 the Medical 875-125 mg morning Branch per tablet and 1 tablet in the evening. amoxicillin 2021-03- No [id number] 1{tbl} Take 1 Univers -clavulanat 1-22 05-03 9100 tablet by it y of e 00:00: 00:00 mouth in [place] (AUGMENTIN) 00 :00 the Medical 875-125 mg morning Branch per tablet and 1 tablet in the evening. cefdinir 2021-03- No [id number] 600mg Take 2 U nivers 300 mg 1-18 11-29 capsules ity of capsule 00:00: 05:59 by mouth [place] 00 :00 in the Medical morning Branch for 10 days. cefdinir 2021-03- No [id number] 600mg Take 2 U nivers 300 mg 1-18 11-22 capsules ity of capsule 00:00: 00:00 by mouth [place] 00 :00 in the Medical morning Branch for 10 days. cefdinir 2021-03- No [id number] 600mg Take 2 U nivers 300 mg 1-18 11-22 capsules ity of capsule 00:00: 00:00 by mouth [place] 00 :00 in the Medical morning Branch for 10 days. METFORMIN 2021-0 Yes [id number] TAKE 2 U nivers ER 500 mg 9-30 TABLETS BY ity of 24 hr 00:00: MOUTH 2 [place] tablet 00 TIMES Medical DAILY WITH Branch MEALS. METFORMIN 2021-0 Yes [id number] TAKE 2 U nivers ER 500 mg 9-30 TABLETS BY ity of 24 hr 00:00: MOUTH 2 [place] tablet 00 TIMES Medical DAILY WITH Branch MEALS. METFORMIN 2021-0 Yes [id number] TAKE 2 U nivers ER 500 mg 9-30 TABLETS BY ity of 24 hr 00:00: MOUTH 2 [place] tablet 00 TIMES Medical DAILY WITH Branch MEALS. METFORMIN 2021-0 Yes [id number] TAKE 2 U nivers ER 500 mg 9-30 TABLETS BY ity of 24 hr 00:00: MOUTH 2 [place] tablet 00 TIMES Medical DAILY WITH Branch MEALS. METFORMIN 2021-0 Yes [id number] TAKE 2 U nivers ER 500 mg 9-30 TABLETS BY ity of 24 hr 00:00: MOUTH 2 [place] tablet 00 TIMES Medical DAILY WITH Branch MEALS. METFORMIN 2021-0 Yes [id number] TAKE 2 U nivers ER 500 mg 9-30 TABLETS BY ity of 24 hr 00:00: MOUTH 2 [place] tablet 00 TIMES Medical DAILY WITH Branch MEALS. METFORMIN 2021-0 Yes [id number] TAKE 2 U nivers ER 500 mg 9-30 TABLETS BY ity of 24 hr 00:00: MOUTH 2 [place] tablet 00 TIMES Medical DAILY WITH Branch MEALS. METFORMIN 2021-0 Yes [id number] TAKE 2 U nivers ER 500 mg 9-30 TABLETS BY ity of 24 hr 00:00: MOUTH 2 [place] tablet 00 TIMES Medical DAILY WITH Branch MEALS. METFORMIN 2021-0 Yes [id number] TAKE 2 U nivers ER 500 mg 9-30 TABLETS BY ity of 24 hr 00:00: MOUTH 2 [place] tablet 00 TIMES Medical DAILY WITH Branch MEALS. METFORMIN 2021-0 Yes [id number] TAKE 2 U nivers ER 500 mg 9-30 TABLETS BY ity of 24 hr 00:00: MOUTH 2 [place] tablet 00 TIMES Medical DAILY WITH Branch MEALS. METFORMIN 2021-0 Yes [id number] TAKE 2 U nivers ER 500 mg 9-30 TABLETS BY ity of 24 hr 00:00: MOUTH 2 [place] tablet 00 TIMES Medical DAILY WITH Branch MEALS. METFORMIN 2021-0 Yes [id number] TAKE 2 U nivers ER 500 mg 9-30 TABLETS BY ity of 24 hr 00:00: MOUTH 2 [place] tablet 00 TIMES Medical DAILY WITH Branch MEALS. METFORMIN 2021-0 Yes [id number] TAKE 2 U nivers ER 500 mg 9-30 TABLETS BY ity of 24 hr 00:00: MOUTH 2 [place] tablet 00 TIMES Medical DAILY WITH Branch MEALS. METFORMIN 2021-0 Yes [id number] TAKE 2 U nivers ER 500 mg 9-30 TABLETS BY ity of 24 hr 00:00: MOUTH 2 [place] tablet 00 TIMES Medical DAILY WITH Branch MEALS. METFORMIN 0 Yes [id number] TAKE 2 U nivers ER 500 mg 9-30 TABLETS BY ity of 24 hr 00:00: MOUTH 2 [place] tablet 00 TIMES Medical DAILY WITH Branch MEALS. METFORMIN 0 Yes [id number] TAKE 2 U nivers ER 500 mg 9-30 TABLETS BY ity of 24 hr 00:00: MOUTH 2 [place] tablet 00 TIMES Medical DAILY WITH Branch MEALS. METFORMIN 2021-0 Yes [id number] TAKE 2 U nivers ER 500 mg 9-30 TABLETS BY ity of 24 hr 00:00: MOUTH 2 [place] tablet 00 TIMES Medical DAILY WITH Branch MEALS. METFORMIN 0 Yes [id number] TAKE 2 U nivers ER 500 mg 9-30 TABLETS BY ity of 24 hr 00:00: MOUTH 2 [place] tablet 00 TIMES Medical DAILY WITH Branch MEALS. METFORMIN 0 Yes [id number] TAKE 2 U nivers ER 500 mg 9-30 TABLETS BY ity of 24 hr 00:00: MOUTH 2 [place] tablet 00 TIMES Medical DAILY WITH Branch MEALS. METFORMIN 0 Yes [id number] TAKE 2 U nivers ER 500 mg 9-30 TABLETS BY ity of 24 hr 00:00: MOUTH 2 [place] tablet 00 TIMES Medical DAILY WITH Branch MEALS. METFORMIN 0 Yes [id number] TAKE 2 U nivers ER 500 mg 9-30 TABLETS BY ity of 24 hr 00:00: MOUTH 2 [place] tablet 00 TIMES Medical DAILY WITH Branch MEALS. METFORMIN 2021-0 2023- No [id number] TAKE 2 [facility] ER 500 mg 9-30 03-31 TABLETS BY ity of 24 hr 00:00: 00:00 MOUTH 2 [place] tablet 00 :00 TIMES Medical DAILY WITH Branch MEALS. phenazopyri 0 Yes Take by Uni vers dine HCl 9-26 mouth. ity of (AZO ORAL) 11:06: Medical Branch calcium Yes 1{tbl} Take 1 Univer s carbonate/v 9-26 tablet by [facility] of itamin D3 11:06: mouth [place] (VITAMIN 09 daily. Medical D-3 ORAL) Branch multivit-mi Yes 1{tbl} Take 1 [facility] n/iron/foli 9-26 tablet by ity of c/lutein 11:06: mouth [place] (CENTRUM 09 daily. Medical SILVER Branch WOMEN ORAL) cyanocobala Yes 1{tbl} Take 1 [facility] min, 9-26 tablet by ity of vitamin 11:06: mouth [place] B-12, 09 daily. Medical (VITAMIN Branch B12 ORAL) fluticasone Yes 1{spray Use 1 Un [facility]a propionate 9-26 } [place] in ity o f (FLONASE 11:06: each [place] NASAL) 09 nostril Medical daily. Branch loratadine Yes 10mg Take 10 mg [facility] n[facility] (CLARITIN 9-26 by mouth ity of ORAL) 11:06: daily. As 09 needed Medical Branch aspirin 81 Yes 81mg Take 81 mg [facility] nivers mg EC 9-26 by mouth ity of tablet 11:06: in the morning. Medical Branch FIBER Yes 1{tbl} Take 1 [facility] CHOICE ORAL 9-26 tablet by ity of 11:06: mouth. Medical Branch phenazopyri Yes Take by [facility] vers dine HCl 9-26 mouth. ity of (AZO ORAL) 11:06: Medical Branch calcium Yes 1{tbl} Take 1 Univer s carbonate/v 9-26 tablet by ity of itamin D3 11:06: mouth [place] (VITAMIN 09 daily. Medical D-3 ORAL) Branch multivit-mi Yes 1{tbl} Take 1 [facility] n/iron/foli 9-26 tablet by ity of c/lutein 11:06: mouth [place] (CENTRUM 09 daily. Medical SILVER Branch WOMEN ORAL) cyanocobala Yes 1{tbl} Take 1 [facility] min, 9-26 tablet by ity of vitamin 11:06: mouth [place] B-12, daily. Medical (VITAMIN Branch B12 ORAL) fluticasone Yes 1{spray Use 1 Un mila propionate 9-26 } [place] in ity o f (FLONASE 11:06: each NASAL) 09 nostril Medical daily. Branch loratadine Yes 10mg Take 10 mg U nivers (CLARITIN 9-26 by mouth ity of ORAL) 11:06: daily. As needed Medical Branch aspirin 81 0 Yes 81mg Take 81 mg U nivers mg EC 9-26 by mouth ity of tablet 11:06: in the morning. Medical Branch FIBER Yes 1{tbl} Take 1 [facility] CHOICE ORAL 9-26 tablet by ity of 11:06: mouth. Medical Branch phenazopyri Yes Take by [facility] vers dine HCl 9-26 mouth. ity of (AZO ORAL) 11:06: Medical Branch calcium Yes 1{tbl} Take 1 Univer s carbonate/v 9-26 tablet by ity of itamin D3 11:06: mouth [place] (VITAMIN 09 daily. Medical D-3 ORAL) Branch multivit-mi Yes 1{tbl} Take 1 [facility] n/iron/foli 9-26 tablet by ity of c/lutein 11:06: mouth [place] (CENTRUM 09 daily. Medical SILVER Branch WOMEN ORAL) cyanocobala Yes 1{tbl} Take 1 [facility] min, 9-26 tablet by ity of vitamin 11:06: mouth [place] B-12, daily. Medical (VITAMIN Branch B12 ORAL) fluticasone Yes 1{spray Use 1 Un [facility] propionate 9-26 } [place] in ity o f (FLONASE 11:06: each NASAL) 09 nostril Medical daily. Branch loratadine Yes 10mg Take 10 mg U nivers (CLARITIN 9-26 by mouth ity of ORAL) 11:06: daily. As needed Medical Branch aspirin 81 0 Yes 81mg Take 81 mg U nivers mg EC 9-26 by mouth ity of tablet 11:06: in the morning. Medical Branch FIBER Yes 1{tbl} Take 1 [facility] CHOICE ORAL 9-26 tablet by ity of 11:06: mouth. Medical Branch phenazopyri Yes Take by [facility] vers dine HCl 9-26 mouth. ity of (AZO ORAL) 11:06: Medical Branch calcium Yes 1{tbl} Take 1 Univer s carbonate/v 9-26 tablet by ity of itamin D3 11:06: mouth [place] (VITAMIN 09 daily. Medical D-3 ORAL) Branch multivit-mi Yes 1{tbl} Take 1 [facility] n/iron/foli 9-26 tablet by ity of c/lutein 11:06: mouth [place] (CENTRUM 09 daily. Medical SILVER Branch WOMEN ORAL) cyanocobala Yes 1{tbl} Take 1 [facility] [place] min, 9-26 tablet by ity of vitamin 11:06: mouth [place] B-12, 09 daily. Medical (VITAMIN Branch B12 ORAL) fluticasone Yes 1{spray Use 1 Un [facility] propionate 9-26 } [place] in ity o f (FLONASE 11:06: each [place] NASAL) 09 nostril Medical daily. Branch loratadine Yes 10mg Take 10 mg U nivers (CLARITIN 9-26 by mouth ity of ORAL) 11:06: daily. As 09 needed Medical Branch aspirin 81 Yes 81mg Take 81 mg U nivers mg EC 9-26 by mouth ity of tablet 11:06: in the morning. Medical Branch FIBER Yes 1{tbl} Take 1 [facility] CHOICE ORAL 9-26 tablet by ity of 11:06: mouth. Medical Branch phenazopyri Yes Take by [facility] vers dine HCl 9-26 mouth. ity of (AZO ORAL) 11:06: Medical Branch calcium Yes 1{tbl} Take 1 Univer s carbonate/v 9-26 tablet by ity of itamin D3 11:06: mouth [place] (VITAMIN 09 daily. Medical D-3 ORAL) Branch multivit-mi Yes 1{tbl} Take 1 [facility] n/iron/foli 9-26 tablet by ity of c/lutein 11:06: mouth [place] (CENTRUM 09 daily. Medical SILVER Branch WOMEN ORAL) cyanocobala Yes 1{tbl} Take 1 [facility] [place] min, 9-26 tablet by ity of vitamin 11:06: mouth [place] B-, daily. Medical (VITAMIN Branch B12 ORAL) fluticasone Yes 1{spray Use 1 Un [facility] propionate 9-26 } [place] in ity o f (FLONASE 11:06: each NASAL) 09 nostril Medical daily. Branch loratadine Yes 10mg Take 10 mg U nivers (CLARITIN 9-26 by mouth ity of ORAL) 11:06: daily. As needed Medical Branch aspirin 81 Yes 81mg Take 81 mg U nivers mg EC 9-26 by mouth ity of tablet 11:06: in the morning. Medical Branch FIBER Yes 1{tbl} Take 1 [facility] CHOICE ORAL 9-26 tablet by ity of 11:06: mouth. Medical Branch phenazopyri Yes Take by [facility] vers dine HCl 9-26 mouth. ity of (AZO ORAL) 11:06: Medical Branch calcium Yes 1{tbl} Take 1 Univer s carbonate/v 9-26 tablet by ity of itamin D3 11:06: mouth (VITAMIN 09 daily. Medical D-3 ORAL) Branch multivit-mi Yes 1{tbl} Take 1 [facility] [place] n/iron/foli 9-26 tablet by ity of c/lutein 11:06: mouth [place] (CENTRUM 09 daily. Medical SILVER Branch WOMEN ORAL) cyanocobala Yes 1{tbl} Take 1 Un [place] min, 9-26 tablet by ity of vitamin 11:06: mouth [place] B-12, daily. Medical (VITAMIN Branch B12 ORAL) fluticasone Yes 1{spray Use 1 Un [facility] propionate 9-26 } [place] in ity o f (FLONASE 11:06: each [place] NASAL) 09 nostril Medical daily. Branch loratadine Yes 10mg Take 10 mg U nivers (CLARITIN 9-26 by mouth ity of ORAL) 11:06: daily. As needed Medical Branch aspirin 81 Yes 81mg Take 81 mg U nivers mg EC 9-26 by mouth ity of tablet 11:06: in the morning. Medical Branch FIBER Yes 1{tbl} Take 1 [facility] CHOICE ORAL 9-26 tablet by ity of 11:06: mouth. Medical Branch phenazopyri Yes Take by [facility] vers dine HCl 9-26 mouth. ity of (AZO ORAL) 11:06: Medical Branch calcium Yes 1{tbl} Take 1 Univer s carbonate/v 9-26 tablet by ity of itamin D3 11:06: mouth [place] (VITAMIN 09 daily. Medical D-3 ORAL) Branch multivit-mi Yes 1{tbl} Take 1 [facility] [place] n/iron/foli 9-26 tablet by ity of c/lutein 11:06: mouth [place] (CENTRUM 09 daily. Medical SILVER Branch WOMEN ORAL) cyanocobala Yes 1{tbl} Take 1 Un [place] min, 9-26 tablet by ity of vitamin 11:06: mouth [place] B-12, 09 daily. Medical (VITAMIN Branch B12 ORAL) fluticasone Yes 1{spray Use 1 Un [facility] propionate 9-26 } [place] in ity o f (FLONASE 11:06: each [place] NASAL) 09 nostril Medical daily. Branch loratadine Yes 10mg Take 10 mg U nivers (CLARITIN 9-26 by mouth ity of ORAL) 11:06: daily. As needed Medical Branch aspirin 81 Yes 81mg Take 81 mg U nivers mg EC 9-26 by mouth ity of tablet 11:06: in the morning. Medical Branch FIBER Yes 1{tbl} Take 1 [facility] CHOICE ORAL 9-26 tablet by ity of 11:06: mouth. Medical Branch phenazopyri Yes Take by [facility] vers dine HCl 9-26 mouth. ity of (AZO ORAL) 11:06: Medical Branch calcium Yes 1{tbl} Take 1 Univer s carbonate/v 9-26 tablet by ity of itamin D3 11:06: mouth [place] (VITAMIN 09 daily. Medical D-3 ORAL) Branch multivit-mi Yes 1{tbl} Take 1 [facility] [place] n/iron/foli 9-26 tablet by ity of c/lutein 11:06: mouth [place] (CENTRUM 09 daily. Medical SILVER Branch WOMEN ORAL) cyanocobala Yes 1{tbl} Take 1 [facility] [place] min, 9-26 tablet by ity of vitamin 11:06: mouth [place] B-, daily. Medical (VITAMIN Branch B12 ORAL) fluticasone Yes 1{spray Use 1 Un [facility] propionate 9-26 } [place] in ity o f (FLONASE 11:06: each NASAL) 09 nostril Medical daily. Branch loratadine Yes 10mg Take 10 mg U nivers (CLARITIN 9-26 by mouth ity of ORAL) 11:06: daily. As needed Medical Branch aspirin 81 Yes 81mg Take 81 mg U nivers mg EC 9-26 by mouth ity of tablet 11:06: in the morning. Medical Branch FIBER Yes 1{tbl} Take 1 [facility] CHOICE ORAL 9-26 tablet by ity of 11:06: mouth. Medical Branch phenazopyri Yes Take by [facility] vers dine HCl 9-26 mouth. ity of (AZO ORAL) 11:06: Medical Branch calcium Yes 1{tbl} Take 1 Univer s carbonate/v 9-26 tablet by ity of itamin D3 11:06: mouth [place] (VITAMIN 09 daily. Medical D-3 ORAL) Branch multivit-mi Yes 1{tbl} Take 1 [facility] n/iron/foli 9-26 tablet by ity of c/lutein 11:06: mouth [place] (CENTRUM 09 daily. Medical SILVER Branch WOMEN ORAL) cyanocobala Yes 1{tbl} Take 1 Un [place] min, 9-26 tablet by ity of vitamin 11:06: mouth [place] B-12, 09 daily. Medical (VITAMIN Branch B12 ORAL) fluticasone Yes 1{spray Use 1 Un mila propionate 9-26 } [place] in ity o f (FLONASE 11:06: each [place] NASAL) 09 nostril Medical daily. Branch loratadine Yes 10mg Take 10 mg U nivers (CLARITIN 9-26 by mouth ity of ORAL) 11:06: daily. As needed Medical Branch aspirin 81 Yes 81mg Take 81 mg U nivers mg EC 9-26 by mouth ity of tablet 11:06: in the morning. Medical Branch FIBER Yes 1{tbl} Take 1 [facility] CHOICE ORAL 9-26 tablet by ity of 11:06: mouth. Medical Branch phenazopyri Yes Take by [facility] vers dine HCl 9-26 mouth. ity of (AZO ORAL) 11:06: Medical Branch calcium Yes 1{tbl} Take 1 Univer s carbonate/v 9-26 tablet by ity of itamin D3 11:06: mouth [place] (VITAMIN 09 daily. Medical D-3 ORAL) Branch multivit-mi Yes 1{tbl} Take 1 [facility] n/iron/foli 9-26 tablet by ity of c/lutein 11:06: mouth [place] (CENTRUM 09 daily. Medical SILVER Branch WOMEN ORAL) cyanocobala Yes 1{tbl} Take 1 Un [place] min, 9-26 tablet by ity of vitamin 11:06: mouth [place] B-12, 09 daily. Medical (VITAMIN Branch B12 ORAL) fluticasone Yes 1{spray Use 1 Un mila propionate 9-26 } [place] in ity o f (FLONASE 11:06: each [place] NASAL) 09 nostril Medical daily. Branch loratadine Yes 10mg Take 10 mg U nivers (CLARITIN 9-26 by mouth ity of ORAL) 11:06: daily. As needed Medical Branch aspirin 81 Yes 81mg Take 81 mg U nivers mg EC 9-26 by mouth ity of tablet 11:06: in the morning. Medical Branch FIBER Yes 1{tbl} Take 1 [facility] CHOICE ORAL 9-26 tablet by ity of 11:06: mouth. Medical Branch phenazopyri Yes Take by [facility] dine HCl 9-26 mouth. ity of (AZO ORAL) 11:06: Medical Branch calcium Yes 1{tbl} Take 1 Univer s carbonate/v 9-26 tablet by ity of itamin D3 11:06: mouth [place] (VITAMIN 09 daily. Medical D-3 ORAL) Branch multivit-mi Yes 1{tbl} Take 1 Un [facility] n/iron/foli 9-26 tablet by ity of c/lutein 11:06: mouth [place] (CENTRUM 09 daily. Medical SILVER Branch WOMEN ORAL) cyanocobala Yes 1{tbl} Take 1 Un [place] min, 9-26 tablet by ity of vitamin 11:06: mouth [place] B-12, 09 daily. Medical (VITAMIN Branch B12 ORAL) fluticasone Yes 1{spray Use 1 Un [facility] propionate 9- } [place] in ity o f (FLONASE 11:06: each NASAL) 09 nostril Medical daily. Branch loratadine Yes 10mg Take 10 mg U nivers (CLARITIN 9-26 by mouth ity of ORAL) 11:06: daily. As needed Medical Branch aspirin 81 Yes 81mg Take 81 mg U nivers mg EC 9-26 by mouth ity of tablet 11:06: in the morning. Medical Branch FIBER Yes 1{tbl} Take 1 [facility] CHOICE ORAL 9-26 tablet by ity of 11:06: mouth. Medical Branch phenazopyri Yes Take by [facility] vers dine HCl 9-26 mouth. ity of (AZO ORAL) 11:06: Medical Branch calcium Yes 1{tbl} Take 1 Univer s carbonate/v 9-26 tablet by ity of itamin D3 11:06: mouth [place] (VITAMIN 09 daily. Medical D-3 ORAL) Branch multivit-mi Yes 1{tbl} Take 1 [facility] [place] n/iron/foli 9-26 tablet by ity of c/lutein 11:06: mouth [place] (CENTRUM 09 daily. Medical SILVER Branch WOMEN ORAL) cyanocobala Yes 1{tbl} Take 1 Un [place] min, 9-26 tablet by ity of vitamin 11:06: mouth [place] B-12, 09 daily. Medical (VITAMIN Branch B12 ORAL) fluticasone Yes 1{spray Use 1 Un [facility] propionate 9-26 } [place] in ity o f (FLONASE 11:06: each [place] NASAL) 09 nostril Medical daily. Branch loratadine Yes 10mg Take 10 mg U nivers (CLARITIN 9-26 by mouth ity of ORAL) 11:06: daily. As needed Medical Branch aspirin 81 Yes 81mg Take 81 mg U nivers mg EC 9-26 by mouth ity of tablet 11:06: in the morning. Medical Branch FIBER Yes 1{tbl} Take 1 [facility] CHOICE ORAL 9-26 tablet by ity of 11:06: mouth. Medical Branch phenazopyri Yes Take by [facility] vers dine HCl 9-26 mouth. ity of (AZO ORAL) 11:06: Medical Branch calcium Yes 1{tbl} Take 1 Univer s carbonate/v 9-26 tablet by ity of itamin D3 11:06: mouth [place] (VITAMIN 09 daily. Medical D-3 ORAL) Branch multivit-mi Yes 1{tbl} Take 1 Un [place] n/iron/foli 9-26 tablet by ity of c/lutein 11:06: mouth [place] (CENTRUM 09 daily. Medical SILVER Branch WOMEN ORAL) cyanocobala Yes 1{tbl} Take 1 Un [place] min, 9-26 tablet by ity of vitamin 11:06: mouth [place] B-12, 09 daily. Medical (VITAMIN Branch B12 ORAL) fluticasone Yes 1{spray Use 1 Un [facility] propionate 9-26 } [place] in ity o f (FLONASE 11:06: each [place] NASAL) 09 nostril Medical daily. Branch loratadine Yes 10mg Take 10 mg U nivers (CLARITIN 9-26 by mouth ity of ORAL) 11:06: daily. As needed Medical Branch aspirin 81 Yes 81mg Take 81 mg U nivers mg EC 9-26 by mouth ity of tablet 11:06: in the morning. Medical Branch FIBER Yes 1{tbl} Take 1 [facility] CHOICE ORAL 9-26 tablet by ity of 11:06: mouth. Medical Branch phenazopyri Yes Take by Uni vers dine HCl 9-26 mouth. ity of (AZO ORAL) 11:06: Medical Branch calcium Yes 1{tbl} Take 1 Univer s carbonate/v 9-26 tablet by ity of itamin D3 11:06: mouth [place] (VITAMIN 09 daily. Medical D-3 ORAL) Branch multivit-mi Yes 1{tbl} Take 1 [facility] [place] n/iron/foli 9-26 tablet by ity of c/lutein 11:06: mouth [place] (CENTRUM 09 daily. Medical SILVER Branch WOMEN ORAL) cyanocobala Yes 1{tbl} Take 1 Un [place] min, 9-26 tablet by ity of vitamin 11:06: mouth [place] B-12, 09 daily. Medical (VITAMIN Branch B12 ORAL) fluticasone Yes 1{spray Use 1 Un mila propionate 9-26 } [place] in ity o f (FLONASE 11:06: each [place] NASAL) 09 nostril Medical daily. Branch loratadine Yes 10mg Take 10 mg U nivers (CLARITIN 9-26 by mouth ity of ORAL) 11:06: daily. As 09 needed Medical Branch aspirin 81 Yes 81mg Take 81 mg U nivers mg EC 9-26 by mouth ity of tablet 11:06: in the morning. Medical Branch FIBER Yes 1{tbl} Take 1 [facility] CHOICE ORAL 9-26 tablet by ity of 11:06: mouth. Medical Branch phenazopyri Yes Take by Uni vers dine HCl 9-26 mouth. ity of (AZO ORAL) 11:06: Medical Branch calcium Yes 1{tbl} Take 1 Univer s carbonate/v 9-26 tablet by ity of itamin D3 11:06: mouth [place] (VITAMIN 09 daily. Medical D-3 ORAL) Branch multivit-mi Yes 1{tbl} Take 1 [facility] [place] n/iron/foli 9-26 tablet by ity of c/lutein 11:06: mouth [place] (CENTRUM 09 daily. Medical SILVER Branch WOMEN ORAL) cyanocobala Yes 1{tbl} Take 1 [facility] [place] min, 9-26 tablet by ity of vitamin 11:06: mouth B-, daily. Medical (VITAMIN Branch B12 ORAL) fluticasone Yes 1{spray Use 1 Un mila propionate 9-26 } [place] in ity o f (FLONASE 11:06: each NASAL) 09 nostril Medical daily. Branch loratadine Yes 10mg Take 10 mg U nivers (CLARITIN 9-26 by mouth ity of ORAL) 11:06: daily. As needed Medical Branch aspirin 81 Yes 81mg Take 81 mg U nivers mg EC 9-26 by mouth ity of tablet 11:06: in the morning. Medical Branch FIBER Yes 1{tbl} Take 1 [facility] CHOICE ORAL 9-26 tablet by ity of 11:06: mouth. Medical Branch phenazopyri Yes Take by [facility] vers dine HCl 9-26 mouth. ity of (AZO ORAL) 11:06: Medical Branch calcium Yes 1{tbl} Take 1 Univer s carbonate/v 9-26 tablet by ity of itamin D3 11:06: mouth [place] (VITAMIN 09 daily. Medical D-3 ORAL) Branch multivit-mi Yes 1{tbl} Take 1 [facility] [place] n/iron/foli 9-26 tablet by ity of c/lutein 11:06: mouth [place] (CENTRUM 09 daily. Medical SILVER Branch WOMEN ORAL) cyanocobala Yes 1{tbl} Take 1 [facility] [place] min, 9-26 tablet by ity of vitamin 11:06: mouth [place] B-12, daily. Medical (VITAMIN Branch B12 ORAL) fluticasone Yes 1{spray Use 1 Un mila propionate 9-26 } [place] in ity o f (FLONASE 11:06: each NASAL) 09 nostril Medical daily. Branch loratadine Yes 10mg Take 10 mg U nivers (CLARITIN 9-26 by mouth ity of ORAL) 11:06: daily. As needed Medical Branch aspirin 81 Yes 81mg Take 81 mg U nivers mg EC 9-26 by mouth ity of tablet 11:06: in the morning. Medical Branch FIBER Yes 1{tbl} Take 1 [facility] CHOICE ORAL 9-26 tablet by ity of 11:06: mouth. Medical Branch phenazopyri Yes Take by [facility] vers dine HCl 9-26 mouth. ity of (AZO ORAL) 11:06: Medical Branch calcium Yes 1{tbl} Take 1 Univer s carbonate/v 9-26 tablet by ity of itamin D3 11:06: mouth [place] (VITAMIN 09 daily. Medical D-3 ORAL) Branch multivit-mi Yes 1{tbl} Take 1 [facility] [place] n/iron/foli 9-26 tablet by ity of c/lutein 11:06: mouth [place] (CENTRUM 09 daily. Medical SILVER Branch WOMEN ORAL) cyanocobala Yes 1{tbl} Take 1 [facility] [place] min, 9-26 tablet by ity of vitamin 11:06: mouth [place] B-12, 09 daily. Medical (VITAMIN Branch B12 ORAL) fluticasone Yes 1{spray Use 1 Un [facility] propionate 9-26 } [place] in ity o f (FLONASE 11:06: each [place] NASAL) 09 nostril Medical daily. Branch loratadine Yes 10mg Take 10 mg U nivers (CLARITIN 9-26 by mouth ity of ORAL) 11:06: daily. As 09 needed Medical Branch aspirin 81 Yes 81mg Take 81 mg U nivers mg EC 9-26 by mouth ity of tablet 11:06: in the morning. Medical Branch FIBER Yes 1{tbl} Take 1 [facility] CHOICE ORAL 9-26 tablet by ity of 11:06: mouth. Medical Branch phenazopyri Yes Take by Uni vers dine HCl 9-26 mouth. ity of (AZO ORAL) 11:06: Medical Branch calcium Yes 1{tbl} Take 1 Univer s carbonate/v 9-26 tablet by ity of itamin D3 11:06: mouth [place] (VITAMIN 09 daily. Medical D-3 ORAL) Branch multivit-mi Yes 1{tbl} Take 1 [facility] [place] n/iron/foli 9-26 tablet by ity of c/lutein 11:06: mouth [place] (CENTRUM 09 daily. Medical SILVER Branch WOMEN ORAL) cyanocobala Yes 1{tbl} Take 1 [facility] [place] min, 9-26 tablet by ity of vitamin 11:06: mouth [place] B-12, daily. Medical (VITAMIN Branch B12 ORAL) fluticasone Yes 1{spray Use 1 Un [facility] propionate 9-26 } [place] in ity o f (FLONASE 11:06: each [place] NASAL) 09 nostril Medical daily. Branch loratadine Yes 10mg Take 10 mg U nivers (CLARITIN 9-26 by mouth ity of ORAL) 11:06: daily. As needed Medical Branch aspirin 81 Yes 81mg Take 81 mg U nivers mg EC 9- by mouth ity of tablet 11:06: in the morning. Medical Branch FIBER Yes 1{tbl} Take 1 [facility] CHOICE ORAL 9- tablet by ity of 11:06: mouth. Medical Branch phenazopyri Yes Take by Uni vers dine HCl 9- mouth. ity of (AZO ORAL) 11:06: Medical Branch calcium Yes 1{tbl} Take 1 Univer s carbonate/v -26 tablet by ity of itamin D3 11:06: mouth [place] (VITAMIN 09 daily. Medical D-3 ORAL) Branch multivit-mi Yes 1{tbl} Take 1 [facility] n/iron/foli 9-26 tablet by ity of c/lutein 11:06: mouth [place] (CENTRUM 09 daily. Medical SILVER Branch WOMEN ORAL) cyanocobala Yes 1{tbl} Take 1 [facility] min, 9-26 tablet by ity of vitamin 11:06: mouth [place] B-12, daily. Medical (VITAMIN Branch B12 ORAL) fluticasone Yes 1{spray Use 1 Un mila propionate 9-26 } [place] in ity o f (FLONASE 11:06: each [place] NASAL) 09 nostril Medical daily. Branch loratadine Yes 10mg Take 10 mg U nivers (CLARITIN 9-26 by mouth ity of ORAL) 11:06: daily. As needed Medical Branch aspirin 81 Yes 81mg Take 81 mg U nivers mg EC 9-26 by mouth ity of tablet 11:06: in the morning. Medical Branch FIBER Yes 1{tbl} Take 1 [facility] CHOICE ORAL 9-26 tablet by ity of 11:06: mouth. Medical Branch phenazopyri Yes Take by [facility] vers dine HCl 9-26 mouth. ity of (AZO ORAL) 11:06: Medical Branch calcium Yes 1{tbl} Take 1 Univer s carbonate/v 9-26 tablet by ity of itamin D3 11:06: mouth [place] (VITAMIN 09 daily. Medical D-3 ORAL) Branch multivit-mi Yes 1{tbl} Take 1 [facility] n/iron/foli 9-26 tablet by ity of c/lutein 11:06: mouth [place] (CENTRUM 09 daily. Medical SILVER Branch WOMEN ORAL) cyanocobala Yes 1{tbl} Take 1 Un [facility] min, 9-26 tablet by ity of vitamin 11:06: mouth [place] B-12, 09 daily. Medical (VITAMIN Branch B12 ORAL) fluticasone Yes 1{spray Use 1 Un mila propionate 9-26 } [place] in ity o f (FLONASE 11:06: each [place] NASAL) 09 nostril Medical daily. Branch loratadine Yes 10mg Take 10 mg U nivers (CLARITIN 9-26 by mouth ity of ORAL) 11:06: daily. As needed Medical Branch aspirin 81 Yes 81mg Take 81 mg U nivers mg EC 9-26 by mouth ity of tablet 11:06: in the morning. Medical Branch FIBER Yes 1{tbl} Take 1 [facility] CHOICE ORAL 9-26 tablet by ity of 11:06: mouth. Medical Branch phenazopyri Yes Take by [facility] vers dine HCl 9-26 mouth. ity of (AZO ORAL) 11:06: Medical Branch calcium Yes 1{tbl} Take 1 Univer s carbonate/v 9-26 tablet by ity of itamin D3 11:06: mouth [place] (VITAMIN 09 daily. Medical D-3 ORAL) Branch multivit-mi Yes 1{tbl} Take 1 Un [facility] n/iron/foli 9-26 tablet by ity of c/lutein 11:06: mouth [place] (CENTRUM 09 daily. Medical SILVER Branch WOMEN ORAL) cyanocobala Yes 1{tbl} Take 1 [facility] min, 9-26 tablet by ity of vitamin 11:06: mouth [place] B-, daily. Medical (VITAMIN Branch B12 ORAL) fluticasone Yes 1{spray Use 1 Un mila propionate 9-26 } [place] in ity o f (FLONASE 11:06: each [place] NASAL) 09 nostril Medical daily. Branch loratadine Yes 10mg Take 10 mg U nivers (CLARITIN 9-26 by mouth ity of ORAL) 11:06: daily. As needed Medical Branch aspirin 81 Yes 81mg Take 81 mg U nivers mg EC 9-26 by mouth ity of tablet 11:06: in the morning. Medical Branch FIBER Yes 1{tbl} Take 1 [facility] CHOICE ORAL 9-26 tablet by ity of 11:06: mouth. Medical Branch phenazopyri Yes Take by [facility] vers dine HCl 9-26 mouth. ity of (AZO ORAL) 11:06: Medical Branch calcium Yes 1{tbl} Take 1 Univer s carbonate/v 9-26 tablet by ity of itamin D3 11:06: mouth [place] (VITAMIN 09 daily. Medical D-3 ORAL) Branch multivit-mi Yes 1{tbl} Take 1 [facility] n/iron/foli 9-26 tablet by ity of c/lutein 11:06: mouth [place] (CENTRUM 09 daily. Medical SILVER Branch WOMEN ORAL) cyanocobala Yes 1{tbl} Take 1 [facility] min, 9-26 tablet by ity of vitamin 11:06: mouth [place] B-12, daily. Medical (VITAMIN Branch B12 ORAL) fluticasone Yes 1{spray Use 1 Un mila propionate 9-26 } [place] in ity o f (FLONASE 11:06: each [place] NASAL) 09 nostril Medical daily. Branch loratadine Yes 10mg Take 10 mg U nivers (CLARITIN 9-26 by mouth ity of ORAL) 11:06: daily. As [place] needed Medical Branch aspirin 81 Yes 81mg Take 81 mg U nivers mg EC 9-26 by mouth ity of tablet 11:06: in the morning. Medical Branch FIBER Yes 1{tbl} Take 1 [facility] CHOICE ORAL 9-26 tablet by ity of 11:06: mouth. Medical Branch phenazopyri Yes Take by [facility] vers dine HCl 9-26 mouth. ity of (AZO ORAL) 11:06: Medical Branch calcium Yes 1{tbl} Take 1 Univer s carbonate/v 9-26 tablet by ity of itamin D3 11:06: mouth [place] (VITAMIN 09 daily. Medical D-3 ORAL) Branch multivit-mi Yes 1{tbl} Take 1 [facility] n/iron/foli 9-26 tablet by ity of c/lutein 11:06: mouth [place] (CENTRUM 09 daily. Medical SILVER Branch WOMEN ORAL) cyanocobala Yes 1{tbl} Take 1 [facility] min, 9-26 tablet by ity of vitamin 11:06: mouth [place] B-12, 09 daily. Medical (VITAMIN Branch B12 ORAL) fluticasone Yes 1{spray Use 1 Un mila propionate 9-26 } [place] in ity o f (FLONASE 11:06: each [place] NASAL) 09 nostril Medical daily. Branch loratadine Yes 10mg Take 10 mg U nivers (CLARITIN 9-26 by mouth ity of ORAL) 11:06: daily. As needed Medical Branch aspirin 81 Yes 81mg Take 81 mg U nivers mg EC 9-26 by mouth ity of tablet 11:06: in the morning. Medical Branch FIBER Yes 1{tbl} Take 1 [facility] CHOICE ORAL 9-26 tablet by ity of 11:06: mouth. Medical Branch phenazopyri Yes Take by [facility] vers dine HCl 9-26 mouth. ity of (AZO ORAL) 11:06: Medical Branch calcium Yes 1{tbl} Take 1 Univer s carbonate/v 9-26 tablet by ity of itamin D3 11:06: mouth [place] (VITAMIN 09 daily. Medical D-3 ORAL) Branch multivit-mi Yes 1{tbl} Take 1 [facility] n/iron/foli 9-26 tablet by ity of c/lutein 11:06: mouth [place] (CENTRUM 09 daily. Medical SILVER Branch WOMEN ORAL) cyanocobala Yes 1{tbl} Take 1 [facility] min, 9-26 tablet by ity of vitamin 11:06: mouth [place] B-12, 09 daily. Medical (VITAMIN Branch B12 ORAL) fluticasone Yes 1{spray Use 1 Un mila propionate 9-26 } [place] in ity o f (FLONASE 11:06: each [place] NASAL) 09 nostril Medical daily. Branch loratadine Yes 10mg Take 10 mg U nivers (CLARITIN 9-26 by mouth ity of ORAL) 11:06: daily. As 09 needed Medical Branch aspirin 81 Yes 81mg Take 81 mg U nivers mg EC 9-26 by mouth ity of tablet 11:06: in the morning. Medical Branch FIBER Yes 1{tbl} Take 1 [facility] CHOICE ORAL 9-26 tablet by ity of 11:06: mouth. Medical Branch phenazopyri Yes Take by [facility] vers dine HCl 9-26 mouth. ity of (AZO ORAL) 11:06: Medical Branch calcium Yes 1{tbl} Take 1 Univer s carbonate/v 9-26 tablet by ity of itamin D3 11:06: mouth [place] (VITAMIN 09 daily. Medical D-3 ORAL) Branch multivit-mi Yes 1{tbl} Take 1 [facility] n/iron/foli 9-26 tablet by ity of c/lutein 11:06: mouth [place] (CENTRUM 09 daily. Medical SILVER Branch WOMEN ORAL) cyanocobala Yes 1{tbl} Take 1 [facility] min, 9-26 tablet by ity of vitamin 11:06: mouth [place] B-12, 09 daily. Medical (VITAMIN Branch B12 ORAL) fluticasone Yes 1{spray Use 1 Un [facility] propionate 9-26 } [place] in ity o f (FLONASE 11:06: each [place] NASAL) 09 nostril Medical daily. Branch loratadine Yes 10mg Take 10 mg U nivers (CLARITIN 9-26 by mouth ity of ORAL) 11:06: daily. As needed Medical Branch aspirin 81 Yes 81mg Take 81 mg [facility] nivers mg EC 9-26 by mouth ity of tablet 11:06: in the morning. Medical Branch FIBER Yes 1{tbl} Take 1 [facility] CHOICE ORAL 9-26 tablet by ity of 11:06: mouth. Medical Branch phenazopyri Yes Take by [facility] vers dine HCl 9-26 mouth. ity of (AZO ORAL) 11:06: Medical Branch calcium Yes 1{tbl} Take 1 Univer s carbonate/v 9-26 tablet by ity of itamin D3 11:06: mouth [place] (VITAMIN 09 daily. Medical D-3 ORAL) Branch multivit-mi Yes 1{tbl} Take 1 [facility] n/iron/foli 9-26 tablet by ity of c/lutein 11:06: mouth [place] (CENTRUM 09 daily. Medical SILVER Branch WOMEN ORAL) cyanocobala Yes 1{tbl} Take 1 [facility] min, 9-26 tablet by ity of vitamin 11:06: mouth [place] B-12, daily. Medical (VITAMIN Branch B12 ORAL) fluticasone Yes 1{spray Use 1 Un [facility] propionate 9-26 } [place] in ity o f (FLONASE 11:06: each NASAL) 09 nostril Medical daily. Branch loratadine Yes 10mg Take 10 mg U nivers (CLARITIN 9-26 by mouth ity of ORAL) 11:06: daily. As needed Medical Branch aspirin 81 Yes 81mg Take 81 mg U nivers mg EC 9-26 by mouth ity of tablet 11:06: in the morning. Medical Branch FIBER Yes 1{tbl} Take 1 [facility] CHOICE ORAL 9-26 tablet by ity of 11:06: mouth. Medical Branch phenazopyri Yes Take by [facility] vers dine HCl 9-26 mouth. ity of (AZO ORAL) 11:06: Medical Branch calcium Yes 1{tbl} Take 1 Univer s carbonate/v 9-26 tablet by ity of itamin D3 11:06: mouth [place] (VITAMIN 09 daily. Medical D-3 ORAL) Branch multivit-mi Yes 1{tbl} Take 1 [facility] n/iron/foli 9-26 tablet by ity of c/lutein 11:06: mouth [place] (CENTRUM 09 daily. Medical SILVER Branch WOMEN ORAL) cyanocobala Yes 1{tbl} Take 1 [facility] min, 9-26 tablet by ity of vitamin 11:06: mouth [place] B-12, 09 daily. Medical (VITAMIN Branch B12 ORAL) fluticasone Yes 1{spray Use 1 Un [facility] propionate 9-26 } [place] in ity o f (FLONASE 11:06: each [place] NASAL) 09 nostril Medical daily. Branch loratadine Yes 10mg Take 10 mg U nivers (CLARITIN 9-26 by mouth ity of ORAL) 11:06: daily. As 09 needed Medical Branch aspirin 81 Yes 81mg Take 81 mg U nivers mg EC 9-26 by mouth ity of tablet 11:06: in the morning. Medical Branch FIBER Yes 1{tbl} Take 1 [facility] CHOICE ORAL 9-26 tablet by ity of 11:06: mouth. Medical Branch phenazopyri Yes Take by Uni vers dine HCl 9-26 mouth. ity of (AZO ORAL) 11:06: Medical Branch calcium Yes 1{tbl} Take 1 Univer s carbonate/v 9-26 tablet by ity of itamin D3 11:06: mouth [place] (VITAMIN 09 daily. Medical D-3 ORAL) Branch multivit-mi Yes 1{tbl} Take 1 [facility] n/iron/foli 9-26 tablet by ity of c/lutein 11:06: mouth [place] (CENTRUM 09 daily. Medical SILVER Branch WOMEN ORAL) cyanocobala Yes 1{tbl} Take 1 [facility] min, 9-26 tablet by ity of vitamin 11:06: mouth [place] B-12, 09 daily. Medical (VITAMIN Branch B12 ORAL) fluticasone Yes 1{spray Use 1 Un [facility] propionate 9-26 } [place] in ity o f (FLONASE 11:06: each NASAL) 09 nostril Medical daily. Branch loratadine Yes 10mg Take 10 mg U nivers (CLARITIN 9-26 by mouth ity of ORAL) 11:06: daily. As needed Medical Branch aspirin 81 Yes 81mg Take 81 mg U nivers mg EC 9-26 by mouth ity of tablet 11:06: in the morning. Medical Branch FIBER Yes 1{tbl} Take 1 [facility] CHOICE ORAL 9-26 tablet by ity of 11:06: mouth. Medical Branch calcium Yes 1{tbl} Take 1 Univer s carbonate/v 9-26 tablet by ity of itamin D3 11:06: mouth [place] (VITAMIN 09 daily. Medical D-3 ORAL) Branch multivit-mi Yes 1{tbl} Take 1 [facility] n/iron/foli 9-26 tablet by ity of c/lutein 11:06: mouth [place] (CENTRUM 09 daily. Medical SILVER Branch WOMEN ORAL) cyanocobala Yes 1{tbl} Take 1 [facility] min, 9-26 tablet by ity of vitamin 11:06: mouth [place] B-12, 09 daily. Medical (VITAMIN Branch B12 ORAL) fluticasone Yes 1{spray Use 1 Un [facility] propionate 9-26 } [place] in ity o f (FLONASE 11:06: each [place] NASAL) 09 nostril Medical daily. Branch loratadine Yes 10mg Take 10 mg U nivers (CLARITIN 9-26 by mouth ity of ORAL) 11:06: daily. As needed Medical Branch aspirin 81 Yes 81mg Take 81 mg U nivers mg EC 9-26 by mouth ity of tablet 11:06: in the morning. Medical Branch FIBER Yes 1{tbl} Take 1 [facility] CHOICE ORAL 9-26 tablet by ity of 11:06: mouth. Medical Branch calcium Yes 1{tbl} Take 1 Univer s carbonate/v 9-26 tablet by ity of itamin D3 11:06: mouth [place] (VITAMIN 09 daily. Medical D-3 ORAL) Branch multivit-mi Yes 1{tbl} Take 1 [facility] n/iron/foli 9-26 tablet by ity of c/lutein 11:06: mouth [place] (CENTRUM 09 daily. Medical SILVER Branch WOMEN ORAL) cyanocobala Yes 1{tbl} Take 1 [facility] min, 9-26 tablet by ity of vitamin 11:06: mouth [place] B-, daily. Medical (VITAMIN Branch B12 ORAL) fluticasone Yes 1{spray Use 1 Un [facility] propionate 9-26 } [place] in ity o f (FLONASE 11:06: each [place] NASAL) 09 nostril Medical daily. Branch loratadine Yes 10mg Take 10 mg U nivers (CLARITIN 9-26 by mouth ity of ORAL) 11:06: daily. As needed Medical Branch aspirin 81 Yes 81mg Take 81 mg U nivers mg EC 9-26 by mouth ity of tablet 11:06: in the morning. Medical Branch FIBER Yes 1{tbl} Take 1 [facility] CHOICE ORAL 9-26 tablet by ity of 11:06: mouth. Medical Branch calcium Yes 1{tbl} Take 1 Univer s carbonate/v 9-26 tablet by ity of itamin D3 11:06: mouth [place] (VITAMIN 09 daily. Medical D-3 ORAL) Branch multivit-mi Yes 1{tbl} Take 1 [facility] n/iron/foli 9-26 tablet by ity of c/lutein 11:06: mouth [place] (CENTRUM 09 daily. Medical SILVER Branch WOMEN ORAL) cyanocobala Yes 1{tbl} Take 1 [facility] min, 9-26 tablet by ity of vitamin 11:06: mouth [place] B-12, 09 daily. Medical (VITAMIN Branch B12 ORAL) fluticasone Yes 1{spray Use 1 Un [facility] propionate 9-26 } [place] in ity o f (FLONASE 11:06: each [place] NASAL) 09 nostril Medical daily. Branch loratadine Yes 10mg Take 10 mg U nivers (CLARITIN 9-26 by mouth ity of ORAL) 11:06: daily. As needed Medical Branch aspirin 81 Yes 81mg Take 81 mg U nivers mg EC 9-26 by mouth ity of tablet 11:06: in the morning. Medical Branch FIBER Yes 1{tbl} Take 1 [facility] CHOICE ORAL 9-26 tablet by ity of 11:06: mouth. Medical Branch calcium Yes 1{tbl} Take 1 Univer s carbonate/v 9-26 tablet by ity of itamin D3 11:06: mouth [place] (VITAMIN 09 daily. Medical D-3 ORAL) Branch multivit-mi Yes 1{tbl} Take 1 [facility] n/iron/foli 9-26 tablet by ity of c/lutein 11:06: mouth [place] (CENTRUM 09 daily. Medical SILVER Branch WOMEN ORAL) cyanocobala Yes 1{tbl} Take 1 [facility] min, 9-26 tablet by ity of vitamin 11:06: mouth [place] B-12, 09 daily. Medical (VITAMIN Branch B12 ORAL) fluticasone Yes 1{spray Use 1 Un [facility] propionate 9-26 } [place] in ity o f (FLONASE 11:06: each [place] NASAL) 09 nostril Medical daily. Branch loratadine Yes 10mg Take 10 mg U nivers (CLARITIN 9-26 by mouth ity of ORAL) 11:06: daily. As needed Medical Branch aspirin 81 Yes 81mg Take 81 mg U nivers mg EC 9-26 by mouth ity of tablet 11:06: in the morning. Medical Branch FIBER Yes 1{tbl} Take 1 [facility] CHOICE ORAL 9-26 tablet by ity of 11:06: mouth. Medical Branch calcium Yes 1{tbl} Take 1 Univer s carbonate/v 9-26 tablet by ity of itamin D3 11:06: mouth [place] (VITAMIN 09 daily. Medical D-3 ORAL) Branch multivit-mi Yes 1{tbl} Take 1 [facility] n/iron/foli 9-26 tablet by ity of c/lutein 11:06: mouth [place] (CENTRUM 09 daily. Medical SILVER Branch WOMEN ORAL) cyanocobala Yes 1{tbl} Take 1 [facility] min, 9-26 tablet by ity of vitamin 11:06: mouth [place] B-12, 09 daily. Medical (VITAMIN Branch B12 ORAL) fluticasone Yes 1{spray Use 1 Un [facility] propionate 9-26 } [place] in ity o f (FLONASE 11:06: each NASAL) 09 nostril Medical daily. Branch loratadine Yes 10mg Take 10 mg U nivers (CLARITIN 9-26 by mouth ity of ORAL) 11:06: daily. As needed Medical Branch aspirin 81 Yes 81mg Take 81 mg U nivers mg EC 9-26 by mouth ity of tablet 11:06: in the morning. Medical Branch FIBER Yes 1{tbl} Take 1 [facility] CHOICE ORAL 9-26 tablet by ity of 11:06: mouth. Medical Branch calcium Yes 1{tbl} Take 1 Univer s carbonate/v 9-26 tablet by ity of itamin D3 11:06: mouth [place] (VITAMIN 09 daily. Medical D-3 ORAL) Branch multivit-mi Yes 1{tbl} Take 1 [facility] n/iron/foli 9-26 tablet by ity of c/lutein 11:06: mouth [place] (CENTRUM 09 daily. Medical SILVER Branch WOMEN ORAL) cyanocobala Yes 1{tbl} Take 1 Un [facility] min, 9-26 tablet by ity of vitamin 11:06: mouth [place] B-12, daily. Medical (VITAMIN Branch B12 ORAL) fluticasone Yes 1{spray Use 1 Un [facility] propionate 9-26 } [place] in ity o f (FLONASE 11:06: each [place] NASAL) 09 nostril Medical daily. Branch loratadine 2022-0 Yes 10mg Take 10 mg U nivers (CLARITIN 9-26 by mouth ity of ORAL) 11:06: daily. As needed Medical Branch aspirin 81 Yes 81mg Take 81 mg U nivers mg EC 9-26 by mouth ity of tablet 11:06: in the morning. Medical Branch FIBER Yes 1{tbl} Take 1 [facility] CHOICE ORAL 9-26 tablet by ity of 11:06: mouth. Medical Branch calcium Yes 1{tbl} Take 1 Univer s carbonate/v 9-26 tablet by ity of itamin D3 11:06: mouth [place] (VITAMIN 09 daily. Medical D-3 ORAL) Branch multivit-mi Yes 1{tbl} Take 1 [facility] n/iron/foli 9-26 tablet by ity of c/lutein 11:06: mouth [place] (CENTRUM 09 daily. Medical SILVER Branch WOMEN ORAL) cyanocobala Yes 1{tbl} Take 1 Un [facility] min, 9-26 tablet by ity of vitamin 11:06: mouth [place] B-12, 09 daily. Medical (VITAMIN Branch B12 ORAL) fluticasone Yes 1{spray Use 1 Un [facility] propionate 9-26 } [place] in ity o f (FLONASE 11:06: each [place] NASAL) 09 nostril Medical daily. Branch loratadine Yes 10mg Take 10 mg U nivers (CLARITIN 9-26 by mouth ity of ORAL) 11:06: daily. As needed Medical Branch aspirin 81 Yes 81mg Take 81 mg U nivers mg EC 9-26 by mouth ity of tablet 11:06: in the morning. Medical Branch FIBER Yes 1{tbl} Take 1 [facility] CHOICE ORAL 9-26 tablet by ity of 11:06: mouth. Medical Branch calcium Yes 1{tbl} Take 1 Univer s carbonate/v 9-26 tablet by ity of itamin D3 11:06: mouth [place] (VITAMIN 09 daily. Medical D-3 ORAL) Branch multivit-mi Yes 1{tbl} Take 1 [facility] n/iron/foli 9-26 tablet by ity of c/lutein 11:06: mouth [place] (CENTRUM 09 daily. Medical SILVER Branch WOMEN ORAL) cyanocobala Yes 1{tbl} Take 1 Un [facility] min, 9-26 tablet by ity of vitamin 11:06: mouth [place] B-12, daily. Medical (VITAMIN Branch B12 ORAL) fluticasone Yes 1{spray Use 1 Un mila propionate 9-26 } [place] in ity o f (FLONASE 11:06: each NASAL) 09 nostril Medical daily. Branch loratadine Yes 10mg Take 10 mg U nivers (CLARITIN 9-26 by mouth ity of ORAL) 11:06: daily. As needed Medical Branch aspirin 81 Yes 81mg Take 81 mg U nivers mg EC 9-26 by mouth ity of tablet 11:06: in the morning. Medical Branch FIBER Yes 1{tbl} Take 1 [facility] CHOICE ORAL 9-26 tablet by ity of 11:06: mouth. Medical Branch calcium Yes 1{tbl} Take 1 Univer s carbonate/v 9-26 tablet by ity of itamin D3 11:06: mouth [place] (VITAMIN 09 daily. Medical D-3 ORAL) Branch multivit-mi Yes 1{tbl} Take 1 [facility] n/iron/foli 9-26 tablet by ity of c/lutein 11:06: mouth [place] (CENTRUM 09 daily. Medical SILVER Branch WOMEN ORAL) cyanocobala Yes 1{tbl} Take 1 Un [facility] min, 9-26 tablet by ity of vitamin 11:06: mouth [place] B-12, daily. Medical (VITAMIN Branch B12 ORAL) fluticasone Yes 1{spray Use 1 Un [facility] propionate 9-26 } [place] in ity o f (FLONASE 11:06: each [place] NASAL) 09 nostril Medical daily. Branch loratadine Yes 10mg Take 10 mg U nivers (CLARITIN 9-26 by mouth ity of ORAL) 11:06: daily. As needed Medical Branch aspirin 81 Yes 81mg Take 81 mg U nivers mg EC 9-26 by mouth ity of tablet 11:06: in the morning. Medical Branch FIBER Yes 1{tbl} Take 1 [facility] CHOICE ORAL 9-26 tablet by ity of 11:06: mouth. Medical Branch calcium Yes 1{tbl} Take 1 Univer s carbonate/v 9-26 tablet by ity of itamin D3 11:06: mouth [place] (VITAMIN 09 daily. Medical D-3 ORAL) Branch multivit-mi Yes 1{tbl} Take 1 Un [facility] n/iron/foli 9-26 tablet by ity of c/lutein 11:06: mouth [place] (CENTRUM 09 daily. Medical SILVER Branch WOMEN ORAL) cyanocobala Yes 1{tbl} Take 1 Un [facility] min, 9-26 tablet by ity of vitamin 11:06: mouth [place] B-, daily. Medical (VITAMIN Branch B12 ORAL) fluticasone Yes 1{spray Use 1 Un [facility] propionate 9-26 } [place] in ity o f (FLONASE 11:06: each [place] NASAL) 09 nostril Medical daily. Branch loratadine Yes 10mg Take 10 mg U nivers (CLARITIN 9-26 by mouth ity of ORAL) 11:06: daily. As needed Medical Branch aspirin 81 Yes 81mg Take 81 mg U nivers mg EC 9-26 by mouth ity of tablet 11:06: in the morning. Medical Branch FIBER Yes 1{tbl} Take 1 [facility] CHOICE ORAL 9-26 tablet by ity of 11:06: mouth. Medical Branch calcium Yes 1{tbl} Take 1 Univer s carbonate/v 9-26 tablet by ity of itamin D3 11:06: mouth [place] (VITAMIN 09 daily. Medical D-3 ORAL) Branch multivit-mi Yes 1{tbl} Take 1 [facility] n/iron/foli 9-26 tablet by ity of c/lutein 11:06: mouth [place] (CENTRUM 09 daily. Medical SILVER Branch WOMEN ORAL) cyanocobala Yes 1{tbl} Take 1 Un [facility] min, 9-26 tablet by ity of vitamin 11:06: mouth [place] B-12, daily. Medical (VITAMIN Branch B12 ORAL) fluticasone Yes 1{spray Use 1 Un [facility] propionate 9-26 } [place] in ity o f (FLONASE 11:06: each [place] NASAL) 09 nostril Medical daily. Branch loratadine Yes 10mg Take 10 mg U nivers (CLARITIN 9-26 by mouth ity of ORAL) 11:06: daily. As needed Medical Branch aspirin 81 Yes 81mg Take 81 mg U nivers mg EC 9-26 by mouth ity of tablet 11:06: in the morning. Medical Branch FIBER Yes 1{tbl} Take 1 [facility] CHOICE ORAL 9-26 tablet by ity of 11:06: mouth. Medical Branch calcium Yes 1{tbl} Take 1 Univer s carbonate/v 9-26 tablet by ity of itamin D3 11:06: mouth [place] (VITAMIN 09 daily. Medical D-3 ORAL) Branch multivit-mi Yes 1{tbl} Take 1 [facility] n/iron/foli 9-26 tablet by ity of c/lutein 11:06: mouth [place] (CENTRUM 09 daily. Medical SILVER Branch WOMEN ORAL) cyanocobala Yes 1{tbl} Take 1 Un [facility] min, 9-26 tablet by ity of vitamin 11:06: mouth [place] B-12, 09 daily. Medical (VITAMIN Branch B12 ORAL) fluticasone Yes 1{spray Use 1 Un mila propionate 9-26 } [place] in ity o f (FLONASE 11:06: each [place] NASAL) 09 nostril Medical daily. Branch loratadine Yes 10mg Take 10 mg U nivers (CLARITIN 9-26 by mouth ity of ORAL) 11:06: daily. As needed Medical Branch aspirin 81 Yes 81mg Take 81 mg U nivers mg EC 9-26 by mouth ity of tablet 11:06: in the morning. Medical Branch FIBER Yes 1{tbl} Take 1 [facility] CHOICE ORAL 9-26 tablet by ity of 11:06: mouth. Medical Branch calcium Yes 1{tbl} Take 1 Univer s carbonate/v 9-26 tablet by ity of itamin D3 11:06: mouth [place] (VITAMIN 09 daily. Medical D-3 ORAL) Branch multivit-mi Yes 1{tbl} Take 1 [facility] n/iron/foli 9-26 tablet by ity of c/lutein 11:06: mouth [place] (CENTRUM 09 daily. Medical SILVER Branch WOMEN ORAL) cyanocobala Yes 1{tbl} Take 1 Un [facility] min, 9-26 tablet by ity of vitamin 11:06: mouth [place] B-12, daily. Medical (VITAMIN Branch B12 ORAL) fluticasone Yes 1{spray Use 1 Un mila propionate 9-26 } [place] in ity o f (FLONASE 11:06: each NASAL) 09 nostril Medical daily. Branch loratadine Yes 10mg Take 10 mg U nivers (CLARITIN 9-26 by mouth ity of ORAL) 11:06: daily. As needed Medical Branch aspirin 81 Yes 81mg Take 81 mg U nivers mg EC 9-26 by mouth ity of tablet 11:06: in the morning. Medical Branch FIBER Yes 1{tbl} Take 1 [facility] CHOICE ORAL 9-26 tablet by ity of 11:06: mouth. Medical Branch calcium Yes 1{tbl} Take 1 Univer s carbonate/v 9-26 tablet by ity of itamin D3 11:06: mouth [place] (VITAMIN 09 daily. Medical D-3 ORAL) Branch multivit-mi Yes 1{tbl} Take 1 [facility] n/iron/foli 9-26 tablet by ity of c/lutein 11:06: mouth [place] (CENTRUM 09 daily. Medical SILVER Branch WOMEN ORAL) cyanocobala Yes 1{tbl} Take 1 Un [facility] min, 9-26 tablet by ity of vitamin 11:06: mouth [place] B-12, daily. Medical (VITAMIN Branch B12 ORAL) fluticasone Yes 1{spray Use 1 Un mila propionate 9-26 } [place] in ity o f (FLONASE 11:06: each NASAL) 09 nostril Medical daily. Branch loratadine Yes 10mg Take 10 mg U nivers (CLARITIN 9-26 by mouth ity of ORAL) 11:06: daily. As needed Medical Branch aspirin 81 Yes 81mg Take 81 mg U nivers mg EC 9-26 by mouth ity of tablet 11:06: in the morning. Medical Branch FIBER 0 Yes 1{tbl} Take 1 [facility] CHOICE ORAL 9-26 tablet by ity of 11:06: mouth. Medical Branch calcium Yes 1{tbl} Take 1 Univer s carbonate/v 9-26 tablet by ity of itamin D3 11:06: mouth [place] (VITAMIN 09 daily. Medical D-3 ORAL) Branch cyanocobala Yes 1{tbl} Take 1 Un [facility] min, 9-26 tablet by ity of vitamin 11:06: mouth [place] B-, daily. Medical (VITAMIN Branch B12 ORAL) fluticasone Yes 1{spray Use 1 Un mila propionate 9-26 } [place] in ity o f (FLONASE 11:06: each NASAL) 09 nostril Medical daily. Branch aspirin 81 Yes 81mg Take 81 mg U nivers mg EC 9-26 by mouth ity of tablet 11:06: in the morning. Medical Branch calcium Yes 1{tbl} Take 1 Univer s carbonate/v 9-26 tablet by ity of itamin D3 11:06: mouth [place] (VITAMIN 09 daily. Medical D-3 ORAL) Branch cyanocobala Yes 1{tbl} Take 1 Un [facility] min, 9-26 tablet by ity of vitamin 11:06: mouth [place] B-, daily. Medical (VITAMIN Branch B12 ORAL) fluticasone Yes 1{spray Use 1 Un mila propionate 9-26 } [place] in ity o f (FLONASE 11:06: each [place] NASAL) 09 nostril Medical daily. Branch aspirin 81 0 Yes 81mg Take 81 mg U nivers mg EC 9-26 by mouth ity of tablet 11:06: in the morning. Medical Branch calcium Yes 1{tbl} Take 1 Univer s carbonate/v 9-26 tablet by ity of itamin D3 11:06: mouth [place] (VITAMIN 09 daily. Medical D-3 ORAL) Branch cyanocobala Yes 1{tbl} Take 1 Un [facility] min, 9-26 tablet by ity of vitamin 11:06: mouth [place] B- daily. Medical (VITAMIN Branch B12 ORAL) fluticasone Yes 1{spray Use 1 Un mila propionate 9-26 } [place] in ity o f (FLONASE 11:06: each [place] NASAL) 09 nostril Medical daily. Branch aspirin 81 Yes 81mg Take 81 mg U nivers mg EC 9-26 by mouth ity of tablet 11:06: in the morning. Medical Branch calcium Yes 1{tbl} Take 1 Univer s carbonate/v 9-26 tablet by ity of itamin D3 11:06: mouth [place] (VITAMIN daily. Medical D-3 ORAL) Branch cyanocobala Yes 1{tbl} Take 1 [facility] min, 9-26 tablet by ity of vitamin 11:06: mouth daily. Medical (VITAMIN Branch B12 ORAL) fluticasone Yes 1{spray Use 1 Un mila propionate 9-26 } [place] in ity o f (FLONASE 11:06: each NASAL) 09 nostril Medical daily. Branch aspirin 81 Yes 81mg Take 81 mg U nivers mg EC 9-26 by mouth ity of tablet 11:06: in the morning. Medical Branch calcium Yes 1{tbl} Take 1 Univer s carbonate/v 9-26 tablet by ity of itamin D3 11:06: mouth [place] (VITAMIN 09 daily. Medical D-3 ORAL) Branch cyanocobala Yes 1{tbl} Take 1 Un [facility] min, 9-26 tablet by ity of vitamin 11:06: mouth [place] B-, daily. Medical (VITAMIN Branch B12 ORAL) fluticasone Yes 1{spray Use 1 Un mila propionate 9-26 } [place] in ity o f (FLONASE 11:06: each NASAL) 09 nostril Medical daily. Branch aspirin 81 Yes 81mg Take 81 mg U nivers mg EC 9-26 by mouth ity of tablet 11:06: in the morning. Medical Branch calcium Yes 1{tbl} Take 1 Univer s carbonate/v 9-26 tablet by ity of itamin D3 11:06: mouth [place] (VITAMIN 09 daily. Medical D-3 ORAL) Branch cyanocobala Yes 1{tbl} Take 1 Un [facility] min, 9-26 tablet by ity of vitamin 11:06: mouth [place] B-, daily. Medical (VITAMIN Branch B12 ORAL) fluticasone Yes 1{spray Use 1 Un mila propionate 9-26 } [place] in ity o f (FLONASE 11:06: each NASAL) 09 nostril Medical daily. Branch aspirin 81 Yes 81mg Take 81 mg U nivers mg EC 9-26 by mouth ity of tablet 11:06: in the morning. Medical Branch calcium Yes 1{tbl} Take 1 Univer s carbonate/v 9-26 tablet by ity of itamin D3 11:06: mouth [place] (VITAMIN daily. Medical D-3 ORAL) Branch cyanocobala Yes 1{tbl} Take 1 Un [facility] min, 9-26 tablet by ity of vitamin 11:06: mouth B- daily. Medical (VITAMIN Branch B12 ORAL) fluticasone Yes 1{spray Use 1 Un mila propionate 9-26 } [place] in ity o f (FLONASE 11:06: each NASAL) 09 nostril Medical daily. Branch aspirin 81 Yes 81mg Take 81 mg U nivers mg EC 9-26 by mouth ity of tablet 11:06: in the morning. Medical Branch calcium Yes 1{tbl} Take 1 Univer s carbonate/v 9-26 tablet by ity of itamin D3 11:06: mouth [place] (VITAMIN 09 daily. Medical D-3 ORAL) Branch cyanocobala Yes 1{tbl} Take 1 Un [facility] min, 9-26 tablet by ity of vitamin 11:06: mouth [place] B-, daily. Medical (VITAMIN Branch B12 ORAL) fluticasone Yes 1{spray Use 1 Un mila propionate 9-26 } [place] in ity o f (FLONASE 11:06: each [place] NASAL) 09 nostril Medical daily. Branch aspirin 81 Yes 81mg Take 81 mg U nivers mg EC 9-26 by mouth ity of tablet 11:06: in the morning. Medical Branch calcium Yes 1{tbl} Take 1 Univer s carbonate/v 9-26 tablet by ity of itamin D3 11:06: mouth [place] (VITAMIN 09 daily. Medical D-3 ORAL) Branch cyanocobala Yes 1{tbl} Take 1 Un [facility] min, 9-26 tablet by ity of vitamin 11:06: mouth [place] B-12, 09 daily. Medical (VITAMIN Branch B12 ORAL) fluticasone Yes 1{spray Use 1 Un mila propionate 9-26 } [place] in ity o f (FLONASE 11:06: each [place] NASAL) 09 nostril Medical daily. Branch aspirin 81 Yes 81mg Take 81 mg U nivers mg EC 9-26 by mouth ity of tablet 11:06: in the morning. Medical Branch calcium Yes 1{tbl} Take 1 Univer s carbonate/v 9-26 tablet by ity of itamin D3 11:06: mouth [place] (VITAMIN 09 daily. Medical D-3 ORAL) Branch cyanocobala Yes 1{tbl} Take 1 Un [facility] min, 9-26 tablet by ity of vitamin 11:06: mouth [place] B-12, 09 daily. Medical (VITAMIN Branch B12 ORAL) fluticasone Yes 1{spray Use 1 Un mila propionate 9-26 } [place] in ity o f (FLONASE 11:06: each [place] NASAL) 09 nostril Medical daily. Branch aspirin 81 Yes 81mg Take 81 mg U nivers mg EC 9-26 by mouth ity of tablet 11:06: in the morning. Medical Branch calcium Yes 1{tbl} Take 1 Univer s carbonate/v 9-26 tablet by ity of itamin D3 11:06: mouth [place] (VITAMIN 09 daily. Medical D-3 ORAL) Branch cyanocobala Yes 1{tbl} Take 1 Un [facility] min, 9-26 tablet by ity of vitamin 11:06: mouth [place] B- daily. Medical (VITAMIN Branch B12 ORAL) fluticasone Yes 1{spray Use 1 Un mila propionate 9-26 } [place] in ity o f (FLONASE 11:06: each [place] NASAL) 09 nostril Medical daily. Branch aspirin 81 Yes 81mg Take 81 mg U nivers mg EC 9-26 by mouth ity of tablet 11:06: in the morning. Medical Branch calcium Yes 1{tbl} Take 1 Univer s carbonate/v 9-26 tablet by ity of itamin D3 11:06: mouth [place] (VITAMIN daily. Medical D-3 ORAL) Branch cyanocobala Yes 1{tbl} Take 1 Un [facility] min, 9-26 tablet by ity of vitamin 11:06: mouth [place] B- daily. Medical (VITAMIN Branch B12 ORAL) fluticasone Yes 1{spray Use 1 Un mila propionate 9-26 } [place] in ity o f (FLONASE 11:06: each NASAL) 09 nostril Medical daily. Branch aspirin 81 Yes 81mg Take 81 mg U nivers mg EC 9-26 by mouth ity of tablet 11:06: in the morning. Medical Branch calcium Yes 1{tbl} Take 1 Univer s carbonate/v 9-26 tablet by ity of itamin D3 11:06: mouth [place] (VITAMIN 09 daily. Medical D-3 ORAL) Branch cyanocobala Yes 1{tbl} Take 1 Un [facility] min, 9-26 tablet by ity of vitamin 11:06: mouth [place] B-, daily. Medical (VITAMIN Branch B12 ORAL) fluticasone Yes 1{spray Use 1 Un mila propionate 9-26 } [place] in ity o f (FLONASE 11:06: each [place] NASAL) 09 nostril Medical daily. Branch aspirin 81 0 Yes 81mg Take 81 mg U nivers mg EC 9-26 by mouth ity of tablet 11:06: in the morning. Medical Branch calcium Yes 1{tbl} Take 1 Univer s carbonate/v 9-26 tablet by ity of itamin D3 11:06: mouth [place] (VITAMIN 09 daily. Medical D-3 ORAL) Branch cyanocobala Yes 1{tbl} Take 1 Un [facility] min, 9-26 tablet by ity of vitamin 11:06: mouth [place] B-12, 09 daily. Medical (VITAMIN Branch B12 ORAL) fluticasone Yes 1{spray Use 1 Un mila propionate - } [place] in ity o f (FLONASE 11:06: each [place] NASAL) 09 nostril Medical daily. Branch aspirin 81 Yes 81mg Take 81 mg U nivers mg EC 9-26 by mouth ity of tablet 11:06: in the [place] 09 morning. Medical Branch ferrous Yes [id number] 325mg Take 1 Uni vers sulfate 325 9-26 tablet by ity of mg (65 mg 00:00: mouth in [facility] iron) 00 the Medical tablet morning Branch and 1 tablet in the evening. flash Yes [id number] 1{kit} 1 Kit 3 [facility] glucose 9-26 (three) ity of sensor 00:00: times [place] (FREESTYLE 00 daily as Medic al HARRISON 2 needed for Branch SENSOR) Kit Other. flash Yes [id number] 1{kit} 1 Kit 3 [facility] vers glucose 9-26 (three) ity of scanning 00:00: times [place] reader 00 daily as Medical (FREESTYLE needed for Bra nch HARRISON 2 Other READER) (BG). Misc ferrous Yes [id number] 325mg Take 1 [facility] vers sulfate 325 9-26 tablet by ity of mg (65 mg 00:00: [place] 00 the [facility] tablet morning Branch and 1 tablet in the evening. flash Yes [id number] 1{kit} 1 Kit 3 [facility] vers glucose 9-26 (three) ity of sensor 00:00: times [place] (FREESTYLE 00 daily as Medic al HARRISON 2 needed for Branch SENSOR) Kit Other. flash Yes [id number] 1{kit} 1 Kit 3 [facility] vers glucose 9-26 (three) ity of scanning 00:00: times [place] reader 00 daily as Medical (FREESTYLE needed for Bra nch HARRISON 2 Other READER) (BG). Misc ferrous 2021-0 Yes [id number] 325mg Take 1 [facility] vers sulfate 325 9-26 tablet by ity of mg (65 mg 00:[place]: [place] 00 the Medical tablet morning Branch and 1 tablet in the evening. flash 2021-0 Yes [id number] 1{kit} 1 Kit 3 [facility] [place] glucose 9-26 (three) ity of sensor 00:00: times [place] (FREESTYLE 00 daily as Medic al HARRISON 2 needed for Branch SENSOR) Kit Other. flash 2021-0 Yes [id number] 1{kit} 1 Kit 3 [facility] glucose 9-26 (three) ity of scanning 00:00: times [place] reader 00 daily as Medical (FREESTYLE needed for Bra nch HARRISON 2 Other READER) (BG). Misc ferrous 2021-0 Yes [id number] 325mg Take 1 [facility] vers sulfate 325 9-26 tablet by ity of mg (65 mg 00:00: [place] 00 the Medical tablet morning Branch and 1 tablet in the evening. flash 2021-0 Yes [id number] 1{kit} 1 Kit 3 [facility] glucose 9-26 (three) ity of sensor 00:00: times [place] (FREESTYLE 00 daily as Medic al HARRISON 2 needed for Branch SENSOR) Kit Other. flash 2021-0 Yes [id number] 1{kit} 1 Kit 3 [facility] glucose 9-26 (three) ity of scanning 00:00: times [place] reader 00 daily as Medical (FREESTYLE needed for Bra nch HARRISON 2 Other READER) (BG). Misc ferrous 2021-0 Yes [id number] 325mg Take 1 [facility] vers sulfate 325 9-26 tablet by ity of mg (65 mg 00:00: [place] 00 the Medical tablet morning Branch and 1 tablet in the evening. flash 2021-0 Yes [id number] 1{kit} 1 Kit 3 [facility] glucose 9-26 (three) ity of sensor 00:00: times [place] (FREESTYLE 00 daily as Medic al HARRISON 2 needed for Branch SENSOR) Kit Other. flash 2021-0 Yes [id number] 1{kit} 1 Kit 3 [facility] glucose 9-26 (three) ity of scanning 00:00: times [place] reader 00 daily as Medical (FREESTYLE needed for Bra nch HARRISON 2 Other READER) (BG). Misc ferrous 2022-0 Yes [id number] 325mg Take 1 [facility] vers sulfate 325 9-26 tablet by ity of mg (65 mg 00:00: [place] 00 the Medical tablet morning Branch and 1 tablet in the evening. flash 2021-0 Yes [id number] 1{kit} 1 Kit 3 [facility] [place] glucose 9-26 (three) ity of sensor 00:00: times [place] (FREESTYLE 00 daily as Medic al HARRISON 2 needed for Branch SENSOR) Kit Other. flash 2021-0 Yes [id number] 1{kit} 1 Kit 3 [facility] glucose 9-26 (three) ity of scanning 00:00: times [place] reader 00 daily as Medical (FREESTYLE needed for Bra nch HARRISON 2 Other READER) (BG). Misc ferrous 2021-0 Yes [id number] 325mg Take 1 [facility] vers sulfate 325 9-26 tablet by ity of mg (65 mg 00:00: [place] 00 the Medical tablet morning Branch and 1 tablet in the evening. flash 2021-0 Yes [id number] 1{kit} 1 Kit 3 [facility] [place] glucose 9-26 (three) ity of sensor 00:00: times [place] (FREESTYLE 00 daily as Medic al HARRISON 2 needed for Branch SENSOR) Kit Other. flash 2021-0 Yes [id number] 1{kit} 1 Kit 3 [facility] glucose 9-26 (three) ity of scanning 00:00: times [place] reader 00 daily as Medical (FREESTYLE needed for Bra nch HARRISON 2 Other READER) (BG). Misc ferrous 2021-0 Yes [id number] 325mg Take 1 [facility] vers sulfate 325 9-26 tablet by ity of mg (65 mg 00:00: [place] 00 the Medical tablet morning Branch and 1 tablet in the evening. flash 2021-0 Yes [id number] 1{kit} 1 Kit 3 [facility] [place] glucose 9-26 (three) ity of sensor 00:00: times [place] (FREESTYLE 00 daily as Medic al HARRISON 2 needed for Branch SENSOR) Kit Other. flash 2021-0 Yes [id number] 1{kit} 1 Kit 3 [facility] [place] glucose 9-26 (three) ity of scanning 00:00: times [place] reader 00 daily as Medical (FREESTYLE needed for Bra nch HARRISON 2 Other READER) (BG). Misc ferrous 2021-0 Yes [id number] 325mg Take 1 [facility] vers sulfate 325 9-26 tablet by ity of mg (65 mg 00:00: [place] 00 the Medical tablet morning Branch and 1 tablet in the evening. flash 2021-0 Yes [id number] 1{kit} 1 Kit 3 [facility] [place] glucose 9-26 (three) ity of sensor 00:00: times [place] (FREESTYLE 00 daily as Medic al HARRISON 2 needed for Branch SENSOR) Kit Other. flash 2021- Yes [id number] 1{kit} 1 Kit 3 [facility] [place] glucose 9-26 (three) ity of scanning 00:00: times [place] reader 00 daily as Medical (FREESTYLE needed for Bra nch HARRISON 2 Other READER) (BG). Misc ferrous 2021-0 Yes [id number] 325mg Take 1 [facility] vers sulfate 325 9-26 tablet by ity of mg (65 mg 00:00: [place] 00 the Medical tablet morning Branch and 1 tablet in the evening. flash 2021-0 Yes [id number] 1{kit} 1 Kit 3 [facility] [place] glucose 9-26 (three) ity of sensor 00:00: times [place] (FREESTYLE 00 daily as Medic al HARRISON 2 needed for Branch SENSOR) Kit Other. flash 2021-0 Yes [id number] 1{kit} 1 Kit 3 [facility] [place] glucose 9-26 (three) ity of scanning 00:00: times [place] reader 00 daily as Medical (FREESTYLE needed for Bra nch HARRISON 2 Other READER) (BG). Misc ferrous 2021-0 Yes [id number] 325mg Take 1 [facility] vers sulfate 325 9-26 tablet by ity of mg (65 mg 00:00: [place] 00 the Medical tablet morning Branch and 1 tablet in the evening. flash 2021-0 Yes [id number] 1{kit} 1 Kit 3 [facility] [place] glucose 9-26 (three) ity of sensor 00:00: times [place] (FREESTYLE 00 daily as Medic al HARRISON 2 needed for Branch SENSOR) Kit Other. flash 2021-0 Yes [id number] 1{kit} 1 Kit 3 [facility] [place] glucose 9-26 (three) ity of scanning 00:00: times [place] reader 00 daily as Medical (FREESTYLE needed for Bra nch HARRISON 2 Other READER) (BG). Misc ferrous 2021-0 Yes [id number] 325mg Take 1 [facility] vers sulfate 325 9-26 tablet by ity of mg (65 mg 00:00: [place] 00 the Medical tablet morning Branch and 1 tablet in the evening. flash 2021-0 Yes [id number] 1{kit} 1 Kit 3 [facility] [place] glucose 9-26 (three) ity of sensor 00:00: times [place] (FREESTYLE 00 daily as Medic al HARRISON 2 needed for Branch SENSOR) Kit Other. flash 2021-0 Yes [id number] 1{kit} 1 Kit 3 [facility] [place] glucose 9-26 (three) ity of scanning 00:00: times [place] reader 00 daily as Medical (FREESTYLE needed for Bra nch HARRISON 2 Other READER) (BG). Misc ferrous 2021-0 Yes [id number] 325mg Take 1 [facility] vers sulfate 325 9-26 tablet by ity of mg (65 mg 00:00: [place] 00 the Medical tablet morning Branch and 1 tablet in the evening. flash 2021-0 Yes [id number] 1{kit} 1 Kit 3 [place] glucose 9-26 (three) ity of sensor 00:00: times [place] (FREESTYLE 00 daily as Medic al HARRISON 2 needed for Branch SENSOR) Kit Other. flash 2021-0 Yes [id number] 1{kit} 1 Kit 3 [facility] [place] glucose 9-26 (three) ity of scanning 00:00: times [place] reader 00 daily as Medical (FREESTYLE needed for Bra nch HARRISON 2 Other READER) (BG). Misc ferrous 2021-0 Yes [id number] 325mg Take 1 [facility] vers sulfate 325 9-26 tablet by ity of mg (65 mg 00:00: [place] iron[place] 00 the Medical tablet morning Branch and 1 tablet in the evening. flash 2021-0 Yes [id number] 1{kit} 1 Kit 3 [place] glucose 9-26 (three) ity of sensor 00:00: times [place] (FREESTYLE 00 daily as Medic al [facility]ARRISON 2 needed for Branch SENSOR) Kit Other. flash 2021-0 Yes [id number] 1{kit} 1 Kit 3 [facility] [place] glucose 9-26 (three) ity of scanning 00:00: times [place] reader 00 daily as Medical (FREESTYLE needed for Bra nch HARRISON 2 Other READER) (BG). Misc ferrous 2021-0 Yes [id number] 325mg Take 1 [facility] vers sulfate 325 9-26 tablet by ity of mg (65 mg 00:00: mouth [place] iron[place] 00 the Medical tablet morning Branch and 1 tablet in the evening. flash 2021-0 Yes [id number] 1{kit} 1 Kit 3 [place] glucose 9-26 (three) ity of sensor 00:00: times [place] (FREESTYLE 00 daily as Medic al HARRISON 2 needed for Branch SENSOR) Kit Other. flash 2021-0 Yes [id number] 1{kit} 1 Kit 3 [facility] [place] glucose 9-26 (three) ity of scanning 00:00: times [place] reader 00 daily as Medical (FREESTYLE needed for Bra nch HARRISON 2 Other READER) (BG). Misc ferrous 2021-0 Yes [id number] 325mg Take 1 [facility] vers sulfate 325 9-26 tablet by ity of mg (65 mg 00:00: [place] iron[place] 00 the Medical tablet morning Branch and 1 tablet in the evening. flash 2021-0 Yes [id number] 1{kit} 1 Kit 3 [place] glucose 9-26 (three) ity of sensor 00:00: times [place] (FREESTYLE 00 daily as Medic al HARRISON 2 needed for Branch SENSOR) Kit Other. flash 2021-0 Yes [id number] 1{kit} 1 Kit 3 [facility] [place] glucose 9-26 (three) ity of scanning 00:00: times [place] reader 00 daily as Medical (FREESTYLE needed for Bra nch HARRISON 2 Other READER) (BG). Misc ferrous 2021-0 Yes [id number] 325mg Take 1 Uni vers sulfate 325 9-26 tablet by ity of mg (65 mg 00:00: mouth [place] iron[place] 00 the Medical tablet morning Branch and 1 tablet in the evening. flash 2021-0 Yes [id number] 1{kit} 1 Kit 3 [place] glucose 9-26 (three) ity of sensor 00:00: times [place] (FREESTYLE 00 daily as Medic al HARRISON 2 needed for Branch SENSOR) Kit Other. flash 2021-0 Yes [id number] 1{kit} 1 Kit 3 [place] glucose 9-26 (three) ity of scanning 00:00: times [place] reader 00 daily as Medical (FREESTYLE needed for Bra nch HARRISON 2 Other READER) (BG). Misc ferrous 2021-0 Yes [id number] 325mg Take 1 Uni vers sulfate 325 9-26 tablet by ity of mg (65 mg 00:00: [place] iron[place] 00 the Medical tablet morning Branch and 1 tablet in the evening. flash 2021- Yes [id number] 1{kit} 1 Kit 3 [place] glucose 9-26 (three) ity of sensor 00:00: times [place] (FREESTYLE 00 daily as Medic al HARRISON 2 needed for Branch SENSOR) Kit Other. flash 2021- Yes [id number] 1{kit} 1 Kit 3 [facility] [place] glucose 9-26 (three) ity of scanning 00:00: times [place] reader 00 daily as Medical (FREESTYLE needed for Bra nch HARRISON 2 Other READER) (BG). Misc ferrous 2021-0 Yes [id number] 325mg Take 1 Uni vers sulfate 325 9-26 tablet by ity of mg (65 mg 00:00: [place] iron[place] 00 the Medical tablet morning Branch and 1 tablet in the evening. flash 2021-0 Yes [id number] 1{kit} 1 Kit 3 [place] glucose 9-26 (three) ity of sensor 00:00: times [place] (FREESTYLE 00 daily as Medic al [facility]ARRISON 2 needed for Branch SENSOR) Kit Other. flash 2021-0 Yes [id number] 1{kit} 1 Kit 3 [facility] [place] glucose 9-26 (three) ity of scanning 00:00: times [place] reader 00 daily as Medical (FREESTYLE needed for Bra nch HARRISON 2 Other READER) (BG). Misc ferrous 2021-0 Yes [id number] 325mg Take 1 Uni vers sulfate 325 9-26 tablet by ity of mg (65 mg 00:00: [place] iron[place] 00 the Medical tablet morning Branch and 1 tablet in the evening. flash 2021-0 Yes [id number] 1{kit} 1 Kit 3 [place] glucose 9-26 (three) ity of sensor 00:00: times [place] (FREESTYLE 00 daily as Medic al HARRISON 2 needed for Branch SENSOR) Kit Other. flash 2021-0 Yes [id number] 1{kit} 1 Kit 3 [place] glucose 9-26 (three) ity of scanning 00:00: times [place] reader 00 daily as Medical (FREESTYLE needed for Bra nch HARRISON 2 Other READER) (BG). Misc ferrous 2021-0 Yes [id number] 325mg Take 1 Uni vers sulfate 325 9-26 tablet by ity of mg (65 mg 00:00: mouth [place] iron[place] 00 the Medical tablet morning Branch and 1 tablet in the evening. flash 2021-0 Yes [id number] 1{kit} 1 Kit 3 [place] glucose 9-26 (three) ity of sensor 00:00: times [place] (FREESTYLE 00 daily as Medic al HARRISON 2 needed for Branch SENSOR) Kit Other. flash 2021-0 Yes [id number] 1{kit} 1 Kit 3 [place] glucose 9-26 (three) ity of scanning 00:00: times [place] reader 00 daily as Medical (FREESTYLE needed for Bra nch HARRISON 2 Other READER) (BG). Misc ferrous 2021-0 Yes [id number] 325mg Take 1 Uni vers sulfate 325 9-26 tablet by ity of mg (65 mg 00:00: [place] iron[place] 00 the Medical tablet morning Branch and 1 tablet in the evening. flash 2021-0 Yes [id number] 1{kit} 1 Kit 3 [place] glucose 9-26 (three) ity of sensor 00:00: times [place] (FREESTYLE 00 daily as Medic al HARRISON 2 needed for Branch SENSOR) Kit Other. flash 2021-0 Yes [id number] 1{kit} 1 Kit 3 [place] glucose 9-26 (three) ity of scanning 00:00: times [place] reader 00 daily as Medical (FREESTYLE needed for Bra nch HARRISON 2 Other READER) (BG). Misc ferrous 2021-0 Yes [id number] 325mg Take 1 Uni vers sulfate 325 9-26 tablet by ity of mg (65 mg 00:00: [place] iron[place] 00 the Medical tablet morning Branch and 1 tablet in the evening. flash 2021-0 Yes [id number] 1{kit} 1 Kit 3 [place] glucose 9-26 (three) ity of sensor 00:00: times [place] (FREESTYLE 00 daily as Medic al HARRISON 2 needed for Branch SENSOR) Kit Other. flash 2021-0 Yes [id number] 1{kit} 1 Kit 3 [place] glucose 9-26 (three) ity of scanning 00:00: times [place] reader 00 daily as Medical (FREESTYLE needed for Bra nch HARRISON 2 Other READER) (BG). [facility] ferrous 2021- Yes [id number] 325mg Take 1 Uni vers sulfate 325 9-26 tablet by ity of mg (65 mg 00:00: [place] iron[place] 00 the Medical tablet morning Branch and 1 tablet in the evening. flash 2021- Yes [id number] 1{kit} 1 Kit 3 [place] glucose 9-26 (three) ity of sensor 00:00: times [place] (FREESTYLE 00 daily as Medic al HARRISON 2 needed for Branch SENSOR) Kit Other. flash 2021-0 Yes [id number] 1{kit} 1 Kit 3 [place] glucose 9-26 (three) ity of scanning 00:00: times [place] reader 00 daily as Medical (FREESTYLE needed for Bra nch HARRISON 2 Other READER) (BG). [facility] flash 2021-0 Yes [id number] 1{kit} 1 Kit 3 [place] glucose 9-26 (three) ity of sensor 00:00: times [place] (FREESTYLE 00 daily as Medic al HARRISON 2 needed for Branch SENSOR) Kit Other. flash 2021-0 Yes [id number] 1{kit} 1 Kit 3 [place] glucose 9-26 (three) ity of scanning 00:00: times [place] reader 00 daily as Medical (FREESTYLE needed for Bra nch HARRISON 2 Other READER) (BG). [facility] flash 2021-0 Yes [id number] 1{kit} 1 Kit 3 [place] glucose 9-26 (three) ity of sensor 00:00: times [place] (FREESTYLE 00 daily as Medic al HARRISON 2 needed for Branch SENSOR) Kit Other. flash 202-0 Yes [id number] 1{kit} 1 Kit 3 [place] glucose 9-26 (three) ity of scanning 00:00: times [place] reader 00 daily as Medical (FREESTYLE needed for Bra nch HARRISON 2 Other READER) (BG). [facility] flash 202-0 Yes [id number] 1{kit} 1 Kit 3 [place] glucose 9-26 (three) ity of sensor 00:00: times [place] (FREESTYLE 00 daily as Medic al HARRISON 2 needed for Branch SENSOR) Kit Other. flash 202-0 Yes [id number] 1{kit} 1 Kit 3 [place] glucose 9-26 (three) ity of scanning 00:00: times [place] reader 00 daily as Medical (FREESTYLE needed for Bra nch HARRISON 2 Other READER) (BG). [facility] flash 2021-0 Yes [id number] 1{kit} 1 Kit 3 [place] glucose 9-26 (three) ity of sensor 00:00: times [place] (FREESTYLE 00 daily as Medic al HARRISON 2 needed for Branch SENSOR) Kit Other. flash 2021-0 Yes [id number] 1{kit} 1 Kit 3 [place] glucose 9-26 (three) ity of scanning 00:00: times [place] reader 00 daily as Medical (FREESTYLE needed for Bra nch HARRISON 2 Other READER) (BG). [facility] flash 2021-0 Yes [id number] 1{kit} 1 Kit 3 [place] glucose 9-26 (three) ity of sensor 00:00: times [place] (FREESTYLE 00 daily as Medic al HARRISON 2 needed for Branch SENSOR) Kit Other. flash 2022-0 Yes [id number] 1{kit} 1 Kit 3 [place] glucose 9-26 (three) ity of scanning 00:00: times [place] reader 00 daily as Medical (FREESTYLE needed for Bra nch HARRISON 2 Other READER) (BG). [facility] flash 202-0 Yes [id number] 1{kit} 1 Kit 3 [place] glucose 9-26 (three) ity of sensor 00:00: times [place] (FREESTYLE 00 daily as Medic al HARRISON 2 needed for Branch SENSOR) Kit Other. flash 202-0 Yes [id number] 1{kit} 1 Kit 3 [place] glucose 9-26 (three) ity of scanning 00:00: times [place] reader 00 daily as Medical (FREESTYLE needed for Bra nch HARRISON 2 Other READER) (BG). [facility] flash 2021-0 Yes [id number] 1{kit} 1 Kit 3 [place] glucose 9-26 (three) ity of sensor 00:00: times [place] (FREESTYLE 00 daily as Medic al HARRISON 2 needed for Branch SENSOR) Kit Other. flash 2021-0 Yes [id number] 1{kit} 1 Kit 3 [place] glucose 9-26 (three) ity of scanning 00:00: times [place] reader 00 daily as Medical (FREESTYLE needed for Bra nch HARRISON 2 Other READER) (BG). [facility] flash 2021- Yes [id number] 1{kit} 1 Kit 3 [place] glucose 9-26 (three) ity of sensor 00:00: times [place] (FREESTYLE 00 daily as Medic al HARRISON 2 needed for Branch SENSOR) Kit Other. flash 2021- Yes [id number] 1{kit} 1 Kit 3 [place] glucose 9-26 (three) ity of scanning 00:00: times [place] reader 00 daily as Medical (FREESTYLE needed for Bra nch HARRISON 2 Other READER) (BG). [facility] flash 2021- Yes [id number] 1{kit} 1 Kit 3 [place] glucose 9-26 (three) ity of sensor 00:00: times [place] (FREESTYLE 00 daily as Medic al HARRISON 2 needed for Branch SENSOR) Kit Other. flash 2021-0 Yes [id number] 1{kit} 1 Kit 3 [place] glucose 9-26 (three) ity of scanning 00:00: times [place] reader 00 daily as Medical (FREESTYLE needed for Bra nch HARRISON 2 Other READER) (BG). [facility] flash 2021-0 Yes [id number] 1{kit} 1 Kit 3 [place] glucose 9-26 (three) ity of sensor 00:00: times [place] (FREESTYLE 00 daily as Medic al HARRISON 2 needed for Branch SENSOR) Kit Other. flash 202-0 Yes [id number] 1{kit} 1 Kit 3 [place] glucose 9-26 (three) ity of scanning 00:00: times [place] reader 00 daily as Medical (FREESTYLE needed for Bra nch HARRISON 2 Other READER) (BG). [facility] flash 2021-0 Yes [id number] 1{kit} 1 Kit 3 [place] glucose 9-26 (three) ity of sensor 00:00: times [place] (FREESTYLE 00 daily as Medic al HARRISON 2 needed for Branch SENSOR) Kit Other. flash 2021-0 Yes [id number] 1{kit} 1 Kit 3 [place] glucose 9-26 (three) ity of scanning 00:00: times [place] reader 00 daily as Medical (FREESTYLE needed for Bra nch HARRISON 2 Other READER) (BG). [facility] flash 2021-0 Yes [id number] 1{kit} 1 Kit 3 [place] glucose 9-26 (three) ity of sensor 00:00: times [place] (FREESTYLE 00 daily as Medic al [facility]ARRISON 2 needed for Branch SENSOR) Kit Other. flash 2021-0 Yes [id number] 1{kit} 1 Kit 3 [place] glucose 9-26 (three) ity of scanning 00:00: times [place] reader 00 daily as Medical (FREESTYLE needed for Bra nch HARRISON 2 Other READER) (BG). [facility] flash 2021-0 Yes [id number] 1{kit} 1 Kit 3 [place] glucose 9-26 (three) ity of sensor 00:00: times [place] (FREESTYLE 00 daily as Medic al [facility]ARRISON 2 needed for Branch SENSOR) Kit Other. flash 2021-0 Yes [id number] 1{kit} 1 Kit 3 [place] glucose 9-26 (three) ity of scanning 00:00: times [place] reader 00 daily as Medical (FREESTYLE needed for Bra nch HARRISON 2 Other READER) (BG). [facility] flash 202-0 Yes [id number] 1{kit} 1 Kit 3 [place] glucose 9-26 (three) ity of sensor 00:00: times [place] (FREESTYLE 00 daily as Medic al HARRISON 2 needed for Branch SENSOR) Kit Other. flash 202-0 Yes [id number] 1{kit} 1 Kit 3 [place] glucose 9-26 (three) ity of scanning 00:00: times [place] reader 00 daily as Medical (FREESTYLE needed for Bra nch HARRISON 2 Other READER) (BG). [facility] flash 2021-0 Yes [id number] 1{kit} 1 Kit 3 [place] glucose 9-26 (three) ity of sensor 00:00: times [place] (FREESTYLE 00 daily as Medic al [facility]ARRISON 2 needed for Branch SENSOR) Kit Other. flash 2021-0 Yes [id number] 1{kit} 1 Kit 3 [place] glucose 9-26 (three) ity of scanning 00:00: times [place] reader 00 daily as Medical (FREESTYLE needed for Bra nch HARRISON 2 Other READER) (BG). [facility] flash 2021-0 Yes [id number] 1{kit} 1 Kit 3 [place] glucose 9-26 (three) ity of sensor 00:00: times [place] (FREESTYLE 00 daily as Medic al [facility]ARRISON 2 needed for Branch SENSOR) Kit Other. flash 2021- Yes [id number] 1{kit} 1 Kit 3 [place] glucose 9-26 (three) ity of scanning 00:00: times [place] reader 00 daily as Medical (FREESTYLE needed for Bra nch HARRISON 2 Other READER) (BG). [facility] flash 2021-0 Yes [id number] 1{kit} 1 Kit 3 [place] glucose 9-26 (three) ity of sensor 00:00: times [place] (FREESTYLE 00 daily as Medic al [facility]ARRISON 2 needed for Branch SENSOR) Kit Other. flash 2021-0 Yes [id number] 1{kit} 1 Kit 3 [place] glucose 9-26 (three) ity of scanning 00:00: times [place] reader 00 daily as Medical (FREESTYLE needed for Bra nch HARRISON 2 Other READER) (BG). [facility] flash 2021-0 Yes [id number] 1{kit} 1 Kit 3 [place] glucose 9-26 (three) ity of sensor 00:00: times [place] (FREESTYLE 00 daily as Medic al [facility]ARRISON 2 needed for Branch SENSOR) Kit Other. flash 202-0 Yes [id number] 1{kit} 1 Kit 3 [place] glucose 9-26 (three) ity of scanning 00:00: times [place] reader 00 daily as Medical (FREESTYLE needed for Bra nch HARRISON 2 Other READER) (BG). [facility] flash 2021-0 Yes [id number] 1{kit} 1 Kit 3 [place] glucose 9-26 (three) ity of sensor 00:00: times [place] (FREESTYLE 00 daily as Medic al [facility]ARRISON 2 needed for Branch SENSOR) Kit Other. flash 2021-0 Yes [id number] 1{kit} 1 Kit 3 [place] glucose 9-26 (three) ity of scanning 00:00: times [place] reader 00 daily as Medical (FREESTYLE needed for Bra nch HARRISON 2 Other READER) (BG). [facility] flash 2021- Yes [id number] 1{kit} 1 Kit 3 [place] glucose 9-26 (three) ity of sensor 00:00: times [place] (FREESTYLE 00 daily as Medic al [facility]ARRISON 2 needed for Branch SENSOR) Kit Other. flash Yes [id number] 1{kit} 1 Kit 3 [place] glucose 9-26 (three) ity of scanning 00:00: times [place] reader 00 daily as Medical (FREESTYLE needed for Bra nch HARRISON 2 Other READER) (BG). [facility] flash 2021- Yes [id number] 1{kit} 1 Kit 3 [place] glucose 9-26 (three) ity of sensor 00:00: times [place] (FREESTYLE 00 daily as Medic al [facility]ARRISON 2 needed for Branch SENSOR) Kit Other. flash 2021-0 Yes [id number] 1{kit} 1 Kit 3 [place] glucose 9-26 (three) ity of scanning 00:00: times [place] reader 00 daily as Medical (FREESTYLE needed for Bra nch HARRISON 2 Other READER) (BG). [facility] flash 2021-0 Yes [id number] 1{kit} 1 Kit 3 [place] glucose 9-26 (three) ity of sensor 00:00: times [place] (FREESTYLE 00 daily as Medic al [facility]ARRISON 2 needed for Branch SENSOR) Kit Other. flash 202-0 Yes [id number] 1{kit} 1 Kit 3 [place] glucose 9-26 (three) ity of scanning 00:00: times [place] reader 00 daily as Medical (FREESTYLE needed for Bra nch HARRISON 2 Other READER) (BG). [facility] flash 202-0 Yes [id number] 1{kit} 1 Kit 3 [place] glucose 9-26 (three) ity of sensor 00:00: times [place] (FREESTYLE 00 daily as Medic al [facility] 2 needed for Branch SENSOR) Kit Other. flash 2021-0 Yes [id number] 1{kit} 1 Kit 3 [place] glucose 9-26 (three) ity of scanning 00:00: times [place] reader 00 daily as Medical (FREESTYLE needed for Bra nch HARRISON 2 Other READER) (BG). [facility] flash 2021-0 Yes [id number] 1{kit} 1 Kit 3 [place] glucose 9-26 (three) ity of sensor 00:00: times [place] (FREESTYLE 00 daily as Medic al [facility]ARRISON 2 needed for Branch SENSOR) Kit Other. flash 2021-0 Yes [id number] 1{kit} 1 Kit 3 [place] glucose 9-26 (three) ity of scanning 00:00: times [place] reader 00 daily as Medical (FREESTYLE needed for Bra nch HARRISON 2 Other READER) (BG). [facility] flash 2021-0 Yes [id number] 1{kit} 1 Kit 3 [place] glucose 9-26 (three) ity of sensor 00:00: times [place] (FREESTYLE 00 daily as Medic al [facility]ARRISON 2 needed for Branch SENSOR) Kit Other. flash 2021-0 Yes [id number] 1{kit} 1 Kit 3 [place] glucose 9-26 (three) ity of scanning 00:00: times [place] reader 00 daily as Medical (FREESTYLE needed for Bra nch HARRISON 2 Other READER) (BG). [facility] flash 2021-0 Yes [id number] 1{kit} 1 Kit 3 [facility] glucose 9-26 (three) ity of sensor 00:00: times [place] (FREESTYLE 00 daily as Medic al HARRISON 2 needed for Branch SENSOR) Kit Other. flash 2022-0 Yes [id number] 1{kit} 1 Kit 3 [place] glucose 9-26 (three) ity of scanning 00:00: times [place] reader 00 daily as Medical (FREESTYLE needed for Bra nch HARRISON 2 Other READER) (BG). [facility] flash 202-0 Yes [id number] 1{kit} 1 Kit 3 [place] glucose 9-26 (three) ity of sensor 00:00: times [place] (FREESTYLE 00 daily as Medic al HARRISON 2 needed for Branch SENSOR) Kit Other. flash 202-0 Yes [id number] 1{kit} 1 Kit 3 [place] glucose 9-26 (three) ity of scanning 00:00: times [place] reader 00 daily as Medical (FREESTYLE needed for Bra nch HARRISON 2 Other READER) (BG). [facility] flash 202-0 Yes [id number] 1{kit} 1 Kit 3 [place] glucose 9-26 (three) ity of sensor 00:00: times [place] (FREESTYLE 00 daily as Medic al HARRISON 2 needed for Branch SENSOR) Kit Other. flash 202-0 Yes [id number] 1{kit} 1 Kit 3 [place] glucose 9-26 (three) ity of scanning 00:00: times [place] reader 00 daily as Medical (FREESTYLE needed for Bra nch HARRISON 2 Other READER) (BG). [facility] flash 2021-0 Yes [id number] 1{kit} 1 Kit 3 [place] glucose 9-26 (three) ity of sensor 00:00: times [place] (FREESTYLE 00 daily as Medic al HARRISON 2 needed for Branch SENSOR) Kit Other. flash 2021-0 Yes [id number] 1{kit} 1 Kit 3 [place] glucose 9-26 (three) ity of scanning 00:00: times [place] reader 00 daily as Medical (FREESTYLE needed for Bra nch HARRISON 2 Other READER) (BG). [facility] flash 2021-0 Yes [id number] 1{kit} 1 Kit 3 [place] glucose 9-26 (three) ity of sensor 00:00: times [place] (FREESTYLE 00 daily as Medic al HARRISON 2 needed for Branch SENSOR) Kit Other. flash 2022-0 Yes [id number] 1{kit} 1 Kit 3 [place] glucose 9-26 (three) ity of scanning 00:00: times [place] reader 00 daily as Medical (FREESTYLE needed for Bra nch HARRISON 2 Other READER) (BG). [facility] flash 202-0 Yes [id number] 1{kit} 1 Kit 3 [place] glucose 9-26 (three) ity of sensor 00:00: times [place] (FREESTYLE 00 daily as Medic al HARRISON 2 needed for Branch SENSOR) Kit Other. flash 202-0 Yes [id number] 1{kit} 1 Kit 3 [place] glucose 9-26 (three) ity of scanning 00:00: times [place] reader 00 daily as Medical (FREESTYLE needed for Bra [facility] HARRISON 2 Other READER) (BG). [facility] flash 2021-0 Yes [id number] 1{kit} 1 Kit 3 [place] glucose 9-26 (three) ity of sensor 00:00: times [place] (FREESTYLE 00 daily as Medic al HARRISON 2 needed for Branch SENSOR) Kit Other. flash 2021-0 Yes [id number] 1{kit} 1 Kit 3 [place] glucose 9-26 (three) ity of scanning 00:00: times [place] reader 00 daily as Medical (FREESTYLE needed for Bra [facility] HARRISON 2 Other READER) (BG). [facility] ferrous 2021-0 2023- No [id number] 325mg Take 1 [facility] sulfate 325 9-26 04-24 tablet by it y of mg (65 mg 00:00: 00:00 mouth in [place] as iron) 00 :00 the Medical tablet morning Branch and 1 tablet in the evening. fluconazole 0 Yes [id number] 200mg Take 1 Univers (DIFLUCAN) 8-24 tablet by ity of 200 mg 00:00: mouth in [place] tablet 00 the Medical morning. Branch fluconazole 0 Yes [id number] 200mg Take 1 Univers (DIFLUCAN) 8-24 tablet by ity of 200 mg 00:00: mouth in [place] tablet 00 the Medical morning. Branch fluconazole 0 Yes [id number] 200mg Take 1 [facility] (DIFLUCAN) 8-24 tablet by ity of 200 mg 00:00: mouth in [place] tablet 00 the Medical morning. Branch fluconazole 0 Yes [id number] 200mg Take 1 Univers (DIFLUCAN) 8-24 tablet by ity of 200 mg 00:00: mouth in [place] tablet 00 the Medical morning. Branch fluconazole 2021-0 Yes [id number] 200mg Take 1 Univers (DIFLUCAN) 8-24 tablet by ity of 200 mg 00:00: mouth in [place] tablet 00 the Medical morning. Branch fluconazole 0 Yes [id number] 200mg Take 1 [facility] (DIFLUCAN) 8-24 tablet by ity of 200 mg 00:00: mouth in [place] tablet 00 the Medical morning. Branch fluconazole 2022-0 Yes [id number] 200mg Take 1 Univers (DIFLUCAN) 8-24 tablet by ity of 200 mg 00:00: mouth in [place] tablet 00 the Medical morning. Branch fluconazole 2022-0 Yes [id number] 200mg Take 1 Univers (DIFLUCAN) 8-24 tablet by ity of 200 mg 00:00: mouth in [place] tablet 00 the Medical morning. Branch fluconazole 2022-0 Yes [id number] 200mg Take 1 Univers (DIFLUCAN) 8-24 tablet by ity of 200 mg 00:00: mouth in [place] tablet 00 the Medical morning. Branch fluconazole 2022-0 Yes [id number] 200mg Take 1 Univers (DIFLUCAN) 8-24 tablet by ity of 200 mg 00:00: mouth in [place] tablet 00 the Medical morning. Branch fluconazole 2-0 Yes [id number] 200mg Take 1 Univers (DIFLUCAN) 8-24 tablet by ity of 200 mg 00:00: mouth in [place] tablet 00 the Medical morning. Branch fluconazole 2-0 Yes [id number] 200mg Take 1 Univers (DIFLUCAN) 8-24 tablet by ity of 200 mg 00:00: mouth in [place] tablet 00 the Medical morning. Branch fluconazole 2-0 Yes [id number] 200mg Take 1 Univers (DIFLUCAN) 8-24 tablet by ity of 200 mg 00:00: mouth in [place] tablet 00 the Medical morning. Branch fluconazole 2022-0 Yes [id number] 200mg Take 1 Univers (DIFLUCAN) 8-24 tablet by ity of 200 mg 00:00: mouth in [place] tablet 00 the Medical morning. Branch fluconazole 2022-0 Yes [id number] 200mg Take 1 Univers (DIFLUCAN) 8-24 tablet by ity of 200 mg 00:00: mouth in [place] tablet 00 the Medical morning. Branch fluconazole 2022-0 Yes [id number] 200mg Take 1 Univers (DIFLUCAN) 8-24 tablet by ity of 200 mg 00:00: mouth in [place] tablet 00 the Medical morning. Branch fluconazole 2022-0 Yes [id number] 200mg Take 1 Univers (DIFLUCAN) 8-24 tablet by ity of 200 mg 00:00: mouth in [place] tablet 00 the Medical morning. Branch fluconazole 2022-0 Yes [id number] 200mg Take 1 Univers (DIFLUCAN) 8-24 tablet by ity of 200 mg 00:00: mouth in [place] tablet 00 the Medical morning. Branch fluconazole 2022-0 Yes [id number] 200mg Take 1 Univers (DIFLUCAN) 8-24 tablet by ity of 200 mg 00:00: mouth in [place] tablet 00 the Medical morning. Branch fluconazole 2022-0 Yes [id number] 200mg Take 1 Univers (DIFLUCAN) 8-24 tablet by ity of 200 mg 00:00: mouth in [place] tablet 00 the Medical morning. Branch fluconazole 2022-0 Yes [id number] 200mg Take 1 Univers (DIFLUCAN) 8-24 tablet by ity of 200 mg 00:00: mouth in [place] tablet 00 the Medical morning. Branch fluconazole 2-0 Yes [id number] 200mg Take 1 Univers (DIFLUCAN) 8-24 tablet by ity of 200 mg 00:00: mouth in [place] tablet 00 the Medical morning. Branch fluconazole 2-0 Yes [id number] 200mg Take 1 Univers (DIFLUCAN) 8-24 tablet by ity of 200 mg 00:00: mouth in [place] tablet 00 the Medical morning. Branch fluconazole 2-0 Yes [id number] 200mg Take 1 Univers (DIFLUCAN) 8-24 tablet by ity of 200 mg 00:00: mouth in [place] tablet 00 the Medical morning. Branch fluconazole 2-0 Yes [id number] 200mg Take 1 Univers (DIFLUCAN) 8-24 tablet by ity of 200 mg 00:00: mouth in [place] tablet 00 the Medical morning. Branch fluconazole 2022-0 Yes [id number] 200mg Take 1 Univers (DIFLUCAN) 8-24 tablet by ity of 200 mg 00:00: mouth in [place] tablet 00 the Medical morning. Branch fluconazole 2022-0 Yes [id number] 200mg Take 1 Univers (DIFLUCAN) 8-24 tablet by ity of 200 mg 00:00: mouth in [place] tablet 00 the Medical morning. Branch fluconazole 2022-0 Yes [id number] 200mg Take 1 Univers (DIFLUCAN) 8-24 tablet by ity of 200 mg 00:00: mouth in [place] tablet 00 the Medical morning. Branch fluconazole 2022-0 Yes [id number] 200mg Take 1 Univers (DIFLUCAN) 8-24 tablet by ity of 200 mg 00:00: mouth in [place] tablet 00 the Medical morning. Branch fluconazole 2022-0 Yes [id number] 200mg Take 1 Univers (DIFLUCAN) 8-24 tablet by ity of 200 mg 00:00: mouth in [place] tablet 00 the Medical morning. Branch fluconazole 2022-0 Yes [id number] 200mg Take 1 Univers (DIFLUCAN) 8-24 tablet by ity of 200 mg 00:00: mouth in [place] tablet 00 the Medical morning. Branch fluconazole 2022-0 Yes [id number] 200mg Take 1 Univers (DIFLUCAN) 8-24 tablet by ity of 200 mg 00:00: mouth in [place] tablet 00 the Medical morning. Branch fluconazole 2022-0 Yes [id number] 200mg Take 1 Univers (DIFLUCAN) 8-24 tablet by ity of 200 mg 00:00: mouth in [place] tablet 00 the Medical morning. Branch fluconazole 2022-0 Yes [id number] 200mg Take 1 Univers (DIFLUCAN) 8-24 tablet by ity of 200 mg 00:00: mouth in [place] tablet 00 the Medical morning. Branch fluconazole 2022-0 Yes [id number] 200mg Take 1 Univers (DIFLUCAN) 8-24 tablet by ity of 200 mg 00:00: mouth in [place] tablet 00 the Medical morning. Branch fluconazole 2022-0 Yes [id number] 200mg Take 1 Univers (DIFLUCAN) 8-24 tablet by ity of 200 mg 00:00: mouth in [place] tablet 00 the Medical morning. Branch fluconazole 2022-0 Yes [id number] 200mg Take 1 Univers (DIFLUCAN) 8-24 tablet by ity of 200 mg 00:00: mouth in [place] tablet 00 the Medical morning. Branch fluconazole 2022-0 Yes [id number] 200mg Take 1 Univers (DIFLUCAN) 8-24 tablet by ity of 200 mg 00:00: mouth in [place] tablet 00 the Medical morning. Branch fluconazole 2022-0 Yes [id number] 200mg Take 1 Univers (DIFLUCAN) 8-24 tablet by ity of 200 mg 00:00: mouth in [place] tablet 00 the Medical morning. Branch fluconazole 2022-0 Yes [id number] 200mg Take 1 Univers (DIFLUCAN) 8-24 tablet by ity of 200 mg 00:00: mouth in [place] tablet 00 the Medical morning. Branch fluconazole 2021-0 Yes [id number] 200mg Take 1 Univers (DIFLUCAN) 8-24 tablet by ity of 200 mg 00:00: mouth in [place] tablet 00 the Medical morning. Branch fluconazole 2021-0 Yes [id number] 200mg Take 1 Univers (DIFLUCAN) 8-24 tablet by ity of 200 mg 00:00: mouth in [place] tablet 00 the Medical morning. Branch fluconazole 2021-0 Yes [id number] 200mg Take 1 Univers (DIFLUCAN) 8-24 tablet by ity of 200 mg 00:00: mouth in [place] tablet 00 the Medical morning. Branch fluconazole 0 Yes [id number] 200mg Take 1 Univers (DIFLUCAN) 8-24 tablet by ity of 200 mg 00:00: mouth in [place] tablet 00 the Medical morning. Branch fluconazole 0 Yes [id number] 200mg Take 1 Univers (DIFLUCAN) 8-24 tablet by ity of 200 mg 00:00: mouth in [place] tablet 00 the Medical morning. Branch fluconazole 0 Yes [id number] 200mg Take 1 Univers (DIFLUCAN) 8-24 tablet by ity of 200 mg 00:00: mouth in [place] tablet 00 the Medical morning. Branch fluconazole 2021-0 2022- No [id number] 200mg Take 1 Univers (DIFLUCAN) 8-24 - tablet by ity of 200 mg 00:00: 00:00 mouth in [place] tablet 00 :00 the Medical morning. Branch fluconazole 2021-0 2022- No [id number] 200mg Take 1 Univers (DIFLUCAN) -20 10- tablet by ity of 200 mg 00:00: 00:00 mouth in [place] tablet 00 :00 the Medical morning. Branch fluconazole 2021-0 2022- No [id number] 200mg Take 1 Univers (DIFLUCAN) 8- tablet by ity of 200 mg 00:00: 00:00 mouth in [place] tablet 00 :00 the Medical morning. Branch LEVEMIR 0 Yes [id number] 50U INJECT 50 U nivers FLEXTOUCH 8-19 UNITS ity of U-100 00:00: UNDER THE [place] INSULN 100 00 SKIN 2 Medical unit/mL (3 (TWO) Branch mL) TIMES injection DAILY WITH MEALS. LEVEMIR Yes [id number] 50U INJECT 50 U nivers FLEXTOUCH 8-19 UNITS ity of U-100 00:00: UNDER THE [place] INSULN 100 00 SKIN 2 Medical unit/mL (3 (TWO) Branch mL) TIMES injection DAILY WITH MEALS. LEVEMIR Yes [id number] 50U INJECT 50 U nivers FLEXTOUCH 8-19 UNITS ity of U-100 00:00: UNDER THE [place] INSULN 100 00 SKIN 2 Medical unit/mL (3 (TWO) Branch mL) TIMES injection DAILY WITH MEALS. LEVEMIR Yes [id number] 50U INJECT 50 U nivers FLEXTOUCH 8-19 UNITS ity of U-100 00:00: UNDER THE [place] INSULN 100 00 SKIN 2 Medical unit/mL (3 (TWO) Branch mL) TIMES injection DAILY WITH MEALS. LEVEMIR Yes [id number] 50U INJECT 50 U nivers FLEXTOUCH 8-19 UNITS ity of U-100 00:00: UNDER THE [place] INSULN 100 00 SKIN 2 Medical unit/mL (3 (TWO) Branch mL) TIMES injection DAILY WITH MEALS. LEVEMIR Yes [id number] 50U INJECT 50 U nivers FLEXTOUCH 8-19 UNITS ity of U-100 00:00: UNDER THE [place] INSULN 100 00 SKIN 2 Medical unit/mL (3 (TWO) Branch mL) TIMES injection DAILY WITH MEALS. LEVEMIR Yes [id number] 50U INJECT 50 Univers FLEXTOUCH 8-19 UNITS ity of U-100 00:00: UNDER THE [place] INSULN 100 00 SKIN 2 Medical unit/mL (3 (TWO) Branch mL) TIMES injection DAILY WITH MEALS. LEVEMIR Yes [id number] 50U INJECT 50 Univers FLEXTOUCH 8-19 UNITS ity of U-100 00:00: UNDER THE [place] INSULN 100 00 SKIN 2 Medical unit/mL (3 (TWO) Branch mL) TIMES injection DAILY WITH MEALS. LEVEMIR Yes [id number] 50U INJECT 50 Univers FLEXTOUCH 8-19 UNITS ity of U-100 00:00: UNDER THE [place] INSULN 100 00 SKIN 2 Medical unit/mL (3 (TWO) Branch mL) TIMES injection DAILY WITH MEALS. LEVEMIR Yes [id number] 50U INJECT 50 Univers FLEXTOUCH 8-19 UNITS ity of U-100 00:00: UNDER THE [place] INSULN 100 00 SKIN 2 Medical unit/mL (3 (TWO) Branch mL) TIMES injection DAILY WITH MEALS. LEVEMIR Yes [id number] 50U INJECT 50 Univers FLEXTOUCH 8-19 UNITS ity of U-100 00:00: UNDER THE [place] INSULN 100 00 SKIN 2 Medical unit/mL (3 (TWO) Branch mL) TIMES injection DAILY WITH MEALS. LEVEMIR Yes [id number] 50U INJECT 50 Univers FLEXTOUCH 8-19 UNITS ity of U-100 00:00: UNDER THE [place] INSULN 100 00 SKIN 2 Medical unit/mL (3 (TWO) Branch mL) TIMES injection DAILY WITH MEALS. LEVEMIR Yes [id number] 50U INJECT 50 Univers FLEXTOUCH 8-19 UNITS ity of U-100 00:00: UNDER THE [place] INSULN 100 00 SKIN 2 Medical unit/mL (3 (TWO) Branch mL) TIMES injection DAILY WITH MEALS. LEVEMIR Yes [id number] 50U INJECT 50 Univers FLEXTOUCH 8-19 UNITS ity of U-100 00:00: UNDER THE [place] INSULN 100 00 SKIN 2 Medical unit/mL (3 (TWO) Branch mL) TIMES injection DAILY WITH MEALS. LEVEMIR Yes [id number] 50U INJECT 50 Univers FLEXTOUCH 8-19 UNITS ity of U-100 00:00: UNDER THE [place] INSULN 100 00 SKIN 2 Medical unit/mL (3 (TWO) Branch mL) TIMES injection DAILY WITH MEALS. LEVEMIR Yes [id number] 50U INJECT 50 Univers FLEXTOUCH 8-19 UNITS ity of U-100 00:00: UNDER THE [place] INSULN 100 00 SKIN 2 Medical unit/mL (3 (TWO) Branch mL) TIMES injection DAILY WITH MEALS. LEVEMIR 2021- No [id number] 50U INJECT 50 Univers FLEXTOUCH 8-19 11-26 UNITS ity of U-100 00:00: 00:00 UNDER THE [place] INSULN 100 00 :00 SKIN 2 Medical unit/mL (3 (TWO) Branch mL) TIMES injection DAILY WITH MEALS. LEVEMIR 2021- No [id number] 50U INJECT 50 Univers FLEXTOUCH 8-19 11-26 UNITS ity of U-100 00:00: 00:00 UNDER THE [place] INSULN 100 00 :00 SKIN 2 Medical unit/mL (3 (TWO) Branch mL) TIMES injection DAILY WITH MEALS. phenazopyri Yes Take by Uni vers dine HCl 8-12 mouth. ity of (AZO ORAL) 09:06: [place] [address] Medical Branch calcium Yes 1{tbl} Take 1 Univer s carbonate/v 8-12 tablet by ity of itamin D3 09:06: mouth [place] (VITAMIN 53 daily. Medical D-3 ORAL) Branch multivit-mi Yes 1{tbl} Take 1 [facility] n/iron/foli 8-12 tablet by ity of c/lutein 09:06: mouth [place] (CENTRUM 53 daily. Medical SILVER Branch WOMEN ORAL) cyanocobala Yes 1{tbl} Take 1 [facility] min, 8-12 tablet by ity of vitamin 09:06: mouth [place] B-12, 53 daily. Medical (VITAMIN Branch B12 ORAL) fluticasone Yes 1{spray Use 1 [facility] propionate 8-12 } [place] in ity o f (FLONASE 09:06: each [place] NASAL) 53 nostril Medical daily. Branch loratadine Yes 10mg Take 10 mg U nivers (CLARITIN 8-12 by mouth ity of ORAL) 09:06: daily. As [place] 53 needed Medical Branch aspirin 81 Yes 81mg Take 81 mg U nivers mg EC 8-12 by mouth ity of tablet 09:06: in the [place] 53 morning. Medical Branch FIBER Yes 1{tbl} Take 1 Univers CHOICE ORAL 8-12 tablet by ity of 09:06: mouth. [place] [address] Medical Branch phenazopyri Yes Take by Uni vers dine HCl 8-12 mouth. ity of (AZO ORAL) 09:06: [place] [address] Medical Branch calcium Yes 1{tbl} Take 1 Univer s carbonate/v 8-12 tablet by ity of itamin D3 09:06: mouth [place] (VITAMIN 53 daily. Medical D-3 ORAL) Branch multivit-mi Yes 1{tbl} Take 1 [facility] n/iron/foli 8-12 tablet by ity of c/lutein 09:06: mouth [place] (CENTRUM 53 daily. Medical SILVER Branch WOMEN ORAL) cyanocobala Yes 1{tbl} Take 1 [facility] min, 8-12 tablet by ity of vitamin 09:06: mouth [place] B-12, 53 daily. Medical (VITAMIN Branch B12 ORAL) fluticasone Yes 1{spray Use 1 Un [facility] propionate 8-12 } [place] in ity o f (FLONASE 09:06: each [place] NASAL) 53 nostril Medical daily. Branch loratadine Yes 10mg Take 10 mg U nivers (CLARITIN 8-12 by mouth ity of ORAL) 09:06: daily. As [place] 53 needed Medical Branch aspirin 81 Yes 81mg Take 81 mg U nivers mg EC 8-12 by mouth ity of tablet 09:06: in the [place] 53 morning. Medical Branch FIBER Yes 1{tbl} Take 1 [facility] CHOICE ORAL 8-12 tablet by ity of 09:06: mouth. [place] [address] Medical Branch phenazopyri Yes Take by Uni vers dine HCl 8-12 mouth. ity of (AZO ORAL) 09:06: [place] [address] Medical Branch calcium Yes 1{tbl} Take 1 Univer s carbonate/v 8-12 tablet by ity of itamin D3 09:06: mouth [place] (VITAMIN 53 daily. Medical D-3 ORAL) Branch multivit-mi Yes 1{tbl} Take 1 [facility] n/iron/foli 8-12 tablet by ity of c/lutein 09:06: mouth [place] (CENTRUM 53 daily. Medical SILVER Branch WOMEN ORAL) cyanocobala Yes 1{tbl} Take 1 [facility] [place] min, 8-12 tablet by ity of vitamin 09:06: mouth [place] B-12, 53 daily. Medical (VITAMIN Branch B12 ORAL) fluticasone Yes 1{spray Use 1 [facility] propionate 8-12 } [place] in ity o f (FLONASE 09:06: each [place] NASAL) 53 nostril Medical daily. Branch loratadine Yes 10mg Take 10 mg U nivers (CLARITIN 8-12 by mouth ity of ORAL) 09:06: daily. As [place] [address] needed Medical Branch aspirin 81 Yes 81mg Take 81 mg U nivers mg EC 8-12 by mouth ity of tablet 09:06: in the [place] [address] morning. Medical Branch FIBER Yes 1{tbl} Take 1 [facility] CHOICE ORAL 8-12 tablet by ity of 09:06: mouth. [place] [address] Medical Branch phenazopyri Yes Take by Uni vers dine HCl 8-12 mouth. ity of (AZO ORAL) 09:06: [place] [address] Medical Branch calcium Yes 1{tbl} Take 1 Univer s carbonate/v 8-12 tablet by ity of itamin D3 09:06: mouth [place] (VITAMIN 53 daily. Medical D-3 ORAL) Branch multivit-mi Yes 1{tbl} Take 1 [facility] n/iron/foli 8-12 tablet by ity of c/lutein 09:06: mouth [place] (CENTRUM 53 daily. Medical SILVER Branch WOMEN ORAL) cyanocobala Yes 1{tbl} Take 1 [place] min, 8-12 tablet by ity of vitamin 09:06: mouth [place] B-12, 53 daily. Medical (VITAMIN Branch B12 ORAL) fluticasone Yes 1{spray Use 1 [facility] propionate 8-12 } [place] in ity o f (FLONASE 09:06: each [place] NASAL) 53 nostril Medical daily. Branch loratadine Yes 10mg Take 10 mg U nivers (CLARITIN 8-12 by mouth ity of ORAL) 09:06: daily. As [place] [address] needed Medical Branch aspirin 81 Yes 81mg Take 81 mg U nivers mg EC 8-12 by mouth ity of tablet 09:06: in the [place] [address] morning. Medical Branch FIBER Yes 1{tbl} Take 1 [facility] CHOICE ORAL 8-12 tablet by ity of 09:06: mouth. [place] [address] Medical Branch GABAPENTIN Yes [id number] TAKE 1 Univers 100 mg 7-15 CAPSULE BY ity of capsule 00:00: MOUTH [place] 00 THREE Medical TIMES A Branch DAY GABAPENTIN Yes [id number] TAKE 1 Univers 100 mg 7-15 CAPSULE BY ity of capsule 00:00: MOUTH 00 THREE Medical TIMES A Branch DAY GABAPENTIN 2022-0 Yes [id number] TAKE 1 [facility] 100 mg 7-15 CAPSULE BY ity of capsule 00:00: MOUTH THREE Medical TIMES A Branch DAY GABAPENTIN 2022-0 Yes [id number] TAKE 1 [facility] 100 mg 7-15 CAPSULE BY ity of capsule 00:00: MOUTH THREE Medical TIMES A Branch DAY GABAPENTIN 2022-0 Yes [id number] TAKE 1 [facility] 100 mg 7-15 CAPSULE BY ity of capsule 00:00: MOUTH THREE Medical TIMES A Branch DAY GABAPENTIN 2022-0 Yes [id number] TAKE 1 [facility] 100 mg 7-15 CAPSULE BY ity of capsule 00:00: MOUTH THREE Medical TIMES A Branch DAY GABAPENTIN 2022-0 Yes [id number] TAKE 1 [facility] 100 mg 7-15 CAPSULE BY ity of capsule 00:00: MOUTH THREE Medical TIMES A Branch DAY GABAPENTIN 2022-0 Yes [id number] TAKE 1 [facility] 100 mg 7-15 CAPSULE BY ity of capsule 00:00: MOUTH THREE Medical TIMES A Branch DAY GABAPENTIN 2022-0 Yes [id number] TAKE 1 [facility] 100 mg 7-15 CAPSULE BY ity of capsule 00:00: MOUTH THREE Medical TIMES A Branch DAY GABAPENTIN 2022-0 Yes [id number] TAKE 1 Univers 100 mg 7-15 CAPSULE BY ity of capsule 00:00: MOUTH THREE Medical TIMES A Branch DAY GABAPENTIN 2022-0 Yes [id number] TAKE 1 [facility] 100 mg 7-15 CAPSULE BY ity of capsule 00:00: MOUTH THREE Medical TIMES A Branch DAY GABAPENTIN 2022-0 Yes [id number] TAKE 1 [facility] 100 mg 7-15 CAPSULE BY ity of capsule 00:00: MOUTH THREE Medical TIMES A Branch DAY GABAPENTIN 2022-0 Yes [id number] TAKE 1 Univers 100 mg 7-15 CAPSULE BY ity of capsule 00:00: MOUTH THREE Medical TIMES A Branch DAY GABAPENTIN 2022-0 Yes [id number] TAKE 1 [facility] 100 mg 7-15 CAPSULE BY ity of capsule 00:00: MOUTH THREE Medical TIMES A Branch DAY GABAPENTIN 2022-0 Yes [id number] TAKE 1 [facility] 100 mg 7-15 CAPSULE BY ity of capsule 00:00: MOUTH 00 THREE Medical TIMES A Branch DAY GABAPENTIN 2022-0 Yes [id number] TAKE 1 [facility] 100 mg 7-15 CAPSULE BY ity of capsule 00:00: MOUTH [place] 00 THREE Medical TIMES A Branch DAY GABAPENTIN 2022-0 Yes [id number] TAKE 1 [facility] 100 mg 7-15 CAPSULE BY ity of capsule 00:00: MOUTH [place] 00 THREE Medical TIMES A Branch DAY GABAPENTIN 2022-0 Yes [id number] TAKE 1 [facility] 100 mg 7-15 CAPSULE BY ity of capsule 00:00: MOUTH [place] 00 THREE Medical TIMES A Branch DAY GABAPENTIN 2022-0 Yes [id number] TAKE 1 [facility] 100 mg 7-15 CAPSULE BY ity of capsule 00:00: MOUTH [place] 00 THREE Medical TIMES A Branch DAY GABAPENTIN 2022-0 Yes [id number] TAKE 1 [facility] 100 mg 7-15 CAPSULE BY ity of capsule 00:00: MOUTH [place] 00 THREE Medical TIMES A Branch DAY GABAPENTIN 2022-0 Yes [id number] TAKE 1 [facility] 100 mg 7-15 CAPSULE BY ity of capsule 00:00: [facility] 00 THREE Medical TIMES A Branch DAY GABAPENTIN 2022-0 Yes [id number] TAKE 1 Univers 100 mg 7-15 CAPSULE BY ity of capsule 00:00: MOUTH [place] 00 THREE Medical TIMES A Branch DAY GABAPENTIN 2022-0 Yes [id number] TAKE 1 [facility] 100 mg 7-15 CAPSULE BY ity of capsule 00:00: MOUTH [place] 00 THREE Medical TIMES A Branch DAY GABAPENTIN 2022-0 Yes [id number] TAKE 1 [facility] 100 mg 7-15 CAPSULE BY ity of capsule 00:00: [facility] 00 THREE Medical TIMES A Branch DAY GABAPENTIN 2022-0 Yes [id number] TAKE 1 [facility] 100 mg 7-15 CAPSULE BY ity of capsule 00:00: MOUTH [place] 00 THREE Medical TIMES A Branch DAY GABAPENTIN 2022-0 2023- No [id number] TAKE 1 [facility] 100 mg 7-15 02-16 CAPSULE BY ity of capsule 00:00: 00:00 MOUTH [place] 00 :00 THREE Medical TIMES A Branch DAY LISINOPRIL- 2022-0 Yes [id number] TAKE 1 Univers HYDROCHLORO 6-02 TABLET BY ity of THIAZIDE 00:00: MOUTH [place] 20-25 mg 00 EVERY DAY Medica l per tablet Branch FLUOXETINE 2-0 Yes [id number] TAKE 1 Uni vers 20 mg 6-02 TABLET BY ity of tablet 00:00: MOUTH [place] 00 EVERY DAY Medical Branch LISINOPRIL- 2021-0 Yes [id number] TAKE 1 Univers HYDROCHLORO 6-02 TABLET BY ity of THIAZIDE 00:00: MOUTH [place] 20-25 mg 00 EVERY DAY Medica l per tablet Branch FLUOXETINE 2021-0 Yes [id number] TAKE 1 Uni vers 20 mg 6-02 TABLET BY ity of tablet 00:00: MOUTH [place] 00 EVERY DAY Medical Branch LISINOPRIL- 2021-0 Yes [id number] TAKE 1 Univers HYDROCHLORO 6-02 TABLET BY ity of THIAZIDE 00:00: MOUTH [place] 20-25 mg 00 EVERY DAY Medica l per tablet Branch FLUOXETINE 2021-0 Yes [id number] TAKE 1 Uni vers 20 mg 6-02 TABLET BY ity of tablet 00:00: MOUTH [place] 00 EVERY DAY Medical Branch LISINOPRIL- 2021-0 Yes [id number] TAKE 1 [facility] HYDROCHLORO 6-02 TABLET BY ity of THIAZIDE 00:00: MOUTH [place] 20-25 mg 00 EVERY DAY Medica l per tablet Branch FLUOXETINE 2021-0 Yes [id number] TAKE 1 Uni vers 20 mg 6-02 TABLET BY ity of tablet 00:00: MOUTH [place] 00 EVERY DAY Medical Branch LISINOPRIL- 2021-0 Yes [id number] TAKE 1 [facility] HYDROCHLORO 6-02 TABLET BY ity of THIAZIDE 00:00: MOUTH [place] 20-25 mg 00 EVERY DAY Medica l per tablet Branch FLUOXETINE 2021-0 Yes [id number] TAKE 1 Uni vers 20 mg 6-02 TABLET BY ity of tablet 00:00: MOUTH [place] 00 EVERY DAY Medical Branch LISINOPRIL- 2021-0 Yes [id number] TAKE 1 [facility] HYDROCHLORO 6-02 TABLET BY ity of THIAZIDE 00:00: MOUTH [place] 20-25 mg 00 EVERY DAY Medica l per tablet Branch FLUOXETINE 2021-0 Yes [id number] TAKE 1 Uni vers 20 mg 6-02 TABLET BY ity of tablet 00:00: MOUTH [place] 00 EVERY DAY Medical Branch LISINOPRIL- 2021-0 Yes [id number] TAKE 1 [facility] HYDROCHLORO 6-02 TABLET BY ity of THIAZIDE 00:00: MOUTH [place] 20-25 mg 00 EVERY DAY Medica l per tablet Branch FLUOXETINE 2021-0 Yes [id number] TAKE 1 Uni vers 20 mg 6-02 TABLET BY ity of tablet 00:00: MOUTH [place] 00 EVERY DAY Medical Branch LISINOPRIL- 2021-0 Yes [id number] TAKE 1 [facility] HYDROCHLORO 6-02 TABLET BY ity of THIAZIDE 00:00: MOUTH [place] 20-25 mg 00 EVERY DAY [facility]ica l per tablet Branch FLUOXETINE 2021-0 Yes [id number] TAKE 1 [facility] vers 20 mg 6-02 TABLET BY ity of tablet 00:00: MOUTH [place] 00 EVERY DAY Medical Branch LISINOPRIL- 2021-0 Yes [id number] TAKE 1 [facility] HYDROCHLORO 6-02 TABLET BY ity of THIAZIDE 00:00: MOUTH [place] 20-25 mg 00 EVERY DAY Medica l per tablet Branch FLUOXETINE 2021-0 Yes [id number] TAKE 1 [facility] vers 20 mg 6-02 TABLET BY ity of tablet 00:00: MOUTH [place] 00 EVERY DAY Medical Branch LISINOPRIL- 0 Yes [id number] TAKE 1 [facility] HYDROCHLORO 6-02 TABLET BY ity of THIAZIDE 00:00: MOUTH [place] 20-25 mg 00 EVERY DAY Medica l per tablet Branch FLUOXETINE 2021-0 Yes [id number] TAKE 1 [facility] vers 20 mg 6-02 TABLET BY ity of tablet 00:00: MOUTH [place] 00 EVERY DAY Medical Branch LISINOPRIL- 0 Yes [id number] TAKE 1 [facility] HYDROCHLORO 6-02 TABLET BY ity of THIAZIDE 00:00: MOUTH [place] 20-25 mg 00 EVERY DAY Medica l per tablet Branch FLUOXETINE 2021-0 Yes [id number] TAKE 1 [facility] vers 20 mg 6-02 TABLET BY ity of tablet 00:00: MOUTH [place] 00 EVERY DAY Medical Branch LISINOPRIL- 2021-0 Yes [id number] TAKE 1 [facility] HYDROCHLORO 6-02 TABLET BY ity of THIAZIDE 00:00: MOUTH [place] 20-25 mg 00 EVERY DAY Medica l per tablet Branch FLUOXETINE 2021-0 Yes [id number] TAKE 1 [facility] vers 20 mg 6-02 TABLET BY ity of tablet 00:00: MOUTH [place] 00 EVERY DAY Medical Branch LISINOPRIL- 2021-0 Yes [id number] TAKE 1 [facility] HYDROCHLORO 6-02 TABLET BY ity of THIAZIDE 00:00: MOUTH [place] 20-25 mg 00 EVERY DAY Medica l per tablet Branch FLUOXETINE 2021-0 Yes [id number] TAKE 1 [facility] 20 mg 6-02 TABLET BY ity of tablet 00:00: MOUTH [place] 00 EVERY DAY Medical Branch LISINOPRIL- 2022-0 Yes [id number] TAKE 1 [facility] HYDROCHLORO 6-02 TABLET BY ity of THIAZIDE 00:00: MOUTH [place] 20-25 mg 00 EVERY DAY Medica l per tablet Branch FLUOXETINE 2021-0 Yes [id number] TAKE 1 [facility] vers 20 mg 6-02 TABLET BY ity of tablet 00:00: MOUTH [place] 00 EVERY DAY Medical [facility] LISINOPRIL- 2021-0 Yes [id number] TAKE 1 [facility] HYDROCHLORO 6-02 TABLET BY ity of THIAZIDE 00:00: MOUTH [place] 20-25 mg 00 EVERY DAY Medica [facility] per tablet Branch FLUOXETINE 2021-0 Yes [id number] TAKE 1 [facility] 20 mg 6-02 TABLET BY ity of tablet 00:00: MOUTH [place] 00 EVERY DAY Medical Branch LISINOPRIL- 2021-0 Yes [id number] TAKE 1 [facility] HYDROCHLORO 6-02 TABLET BY ity of THIAZIDE 00:00: MOUTH [place] 20-25 mg 00 EVERY DAY Medica [facility] per tablet Branch FLUOXETINE 2021-0 Yes [id number] TAKE 1 [facility] 20 mg 6-02 TABLET BY ity of tablet 00:00: MOUTH [place] 00 EVERY DAY Medical Branch LISINOPRIL- 0 Yes [id number] TAKE 1 [facility] HYDROCHLORO 6-02 TABLET BY ity of THIAZIDE 00:00: MOUTH [place] 20-25 mg 00 EVERY DAY Medica [facility] per tablet Branch FLUOXETINE 0 Yes [id number] TAKE 1 [facility] 20 mg 6-02 TABLET BY ity of tablet 00:00: MOUTH [place] 00 EVERY DAY [facility] LISINOPRIL- 2021-0 Yes [id number] TAKE 1 [facility] HYDROCHLORO 6-02 TABLET BY ity of THIAZIDE 00:00: MOUTH [place] 20-25 mg 00 EVERY DAY Medica l per tablet Branch FLUOXETINE 2021-0 Yes [id number] TAKE 1 [facility] 20 mg 6-02 TABLET BY ity of tablet 00:00: MOUTH [place] 00 EVERY DAY Medical Branch LISINOPRIL- 2021-0 Yes [id number] TAKE 1 [facility] HYDROCHLORO 6-02 TABLET BY ity of THIAZIDE 00:00: MOUTH [place] 20-25 mg 00 EVERY DAY Medica l per tablet Branch FLUOXETINE 2021-0 Yes [id number] TAKE 1 [facility] 20 mg 6-02 TABLET BY ity of tablet 00:00: MOUTH [place] 00 EVERY DAY Medical Branch LISINOPRIL- 2021-0 2022- No [id number] TAKE 1 [facility] HYDROCHLORO 08-29 TABLET BY it y of THIAZIDE 00:00: 00:00 MOUTH [place] 20-25 mg 00 :00 EVERY DAY Medica [facility] per tablet Branch FLUOXETINE 2021- No [id number] TAKE 1 [facility] 20 mg 08-29 TABLET BY ity of tablet 00:00: 00:00 MOUTH [place] 00 :00 EVERY DAY Medical Branch sodium,pota 2021-0 Yes [id number] Take as [facility] ssium,mag 07-29 directed ity of sulfates 00:00: [place] 17.5-3.13-1 00 Medical .6 gram Branch sodium,pota 2021-0 Yes [id number] Take as [facility] ssium,mag 07-29 directed ity of sulfates 00:00: [place] 17.5-3.13-1 00 Medical .6 gram Branch sodium,pota 2021-0 Yes [id number] Take as [facility] ssium,mag 07-29 directed ity of sulfates 00:00: [place] 17.5-3.13-1 00 Medical .6 gram Branch sodium,pota 2021-0 Yes [id number] Take as [facility] ssium,mag 07-29 directed ity of sulfates 00:00: [place] 17.5-3.13-1 00 Medical .6 gram Branch sodium,pota 2021-0 Yes [id number] Take as [facility] ssium,mag 07-29 directed ity of sulfates 00:00: [place] 17.5-3.13-1 00 Medical .6 gram Branch sodium,pota 2021-0 Yes [id number] Take as [facility] ssium,mag 07-29 directed ity of sulfates 00:00: [place] 17.5-3.13-1 00 Medical .6 gram Branch sodium,pota 2021-0 Yes [id number] Take as [facility] ssium,mag 07-29 directed ity of sulfates 00:00: [place] 17.5-3.13-1 00 Medical .6 gram Branch sodium,pota 2021-0 Yes [id number] Take as [facility] ssium,mag 07-29 directed ity of sulfates 00:00: [place] 17.5-3.13-1 00 Medical .6 gram Branch sodium,pota 2021-0 Yes [id number] Take as [facility] ssium,mag 07-29 directed ity of sulfates 00:00: [place] 17.5-3.13-1 00 Medical .6 gram Branch sodium,pota 2-0 Yes [id number] Take as [facility] ssium,mag 07-29 directed ity of sulfates 00:00: [place] 17.5-3.13-1 00 Medical .6 gram Branch sodium,pota 2-0 Yes [id number] Take as [facility] ssium,mag 07-29 directed ity of sulfates 00:00: [place] 17.5-3.13-1 00 Medical .6 gram Branch sodium,pota 2021-0 Yes [id number] Take as [facility] ssium,mag 07-29 directed ity of sulfates 00:00: [place] 17.5-3.13-1 00 Medical .6 gram Branch sodium,pota 2021-0 Yes [id number] Take as [facility] ssium,mag 07-29 directed ity of sulfates 00:00: [place] 17.5-3.13-1 00 Medical .6 gram Branch sodium,pota 2021-0 Yes [id number] Take as [facility] ssium,mag 07-29 directed ity of sulfates 00:00: [place] 17.5-3.13-1 00 Medical .6 gram Branch sodium,pota 2021-0 Yes [id number] Take as [facility] ssium,mag 07-29 directed ity of sulfates 00:00: [place] 17.5-3.13-1 00 Medical .6 gram Branch sodium,pota 2-0 Yes [id number] Take as [facility] ssium,mag 07-29 directed ity of sulfates 00:00: [place] 17.5-3.13-1 00 Medical .6 gram Branch sodium,pota 2021-0 Yes [id number] Take as [facility] ssium,mag 07-29 directed ity of sulfates 00:00: [place] 17.5-3.13-1 00 Medical .6 gram Branch sodium,pota 2021-0 Yes [id number] Take as [facility] ssium,mag 07-29 directed ity of sulfates 00:00: [place] 17.5-3.13-1 00 Medical .6 gram Branch sodium,pota 2-0 Yes [id number] Take as [facility] ssium,mag 07-29 directed ity of sulfates 00:00: [place] 17.5-3.13-1 00 Medical .6 gram Branch sodium,pota 2-0 Yes [id number] Take as [facility] ssium,mag 07-29 directed ity of sulfates 00:00: [place] 17.5-3.13-1 00 Medical .6 gram Branch sodium,pota 2-0 Yes [id number] Take as [facility] ssium,mag 07-29 directed ity of sulfates 00:00: [place] 17.5-3.13-1 00 Medical .6 gram Branch sodium,pota 2-0 Yes [id number] Take as [facility] ssium,mag 07-29 directed ity of sulfates 00:00: [place] 17.5-3.13-1 00 Medical .6 gram Branch sodium,pota 2-0 Yes [id number] Take as [facility] ssium,mag 07-29 directed ity of sulfates 00:00: [place] 17.5-3.13-1 00 Medical .6 gram Branch sodium,pota 2-0 Yes [id number] Take as [facility] ssium,mag 07-29 directed ity of sulfates 00:00: [place] 17.5-3.13-1 00 Medical .6 gram Branch sodium,pota 2-0 Yes [id number] Take as [facility] ssium,mag 07-29 directed ity of sulfates 00:00: [place] 17.5-3.13-1 00 Medical .6 gram Branch sodium,pota 2-0 Yes [id number] Take as [facility] ssium,mag 07-29 directed ity of sulfates 00:00: [place] 17.5-3.13-1 00 Medical .6 gram Branch sodium,pota 2-0 Yes [id number] Take as [facility] ssium,mag 07-29 directed ity of sulfates 00:00: [place] 17.5-3.13-1 00 Medical .6 gram Branch sodium,pota 2-0 Yes [id number] Take as [facility] ssium,mag 07-29 directed ity of sulfates 00:00: [place] 17.5-3.13-1 00 Medical .6 gram Branch sodium,pota 2022-0 Yes [id number] Take as [facility] ssium,mag 07-29 directed ity of sulfates 00:00: [place] 17.5-3.13-1 00 Medical .6 gram Branch sodium,pota 2-0 Yes [id number] Take as [facility] ssium,mag 07-29 directed ity of sulfates 00:00: [place] 17.5-3.13-1 00 Medical .6 gram Branch sodium,pota 2-0 Yes [id number] Take as [facility] ssium,mag 07-29 directed ity of sulfates 00:00: [place] 17.5-3.13-1 00 Medical .6 gram Branch sodium,pota 2021-0 Yes [id number] Take as [facility] ssium,mag 07-29 directed ity of sulfates 00:00: [place] 17.5-3.13-1 00 Medical .6 gram Branch sodium,pota 2021-0 Yes [id number] Take as [facility] ssium,mag 07-29 directed ity of sulfates 00:00: [place] 17.5-3.13-1 00 Medical .6 gram Branch sodium,pota 2021-0 Yes [id number] Take as [facility] ssium,mag 07-29 directed ity of sulfates 00:00: [place] 17.5-3.13-1 00 Medical .6 gram Branch sodium,pota 2021-0 Yes [id number] Take as [facility] ssium,mag 07-29 directed ity of sulfates 00:00: [place] 17.5-3.13-1 00 Medical .6 gram Branch sodium,pota 2-0 Yes [id number] Take as [facility] ssium,mag 07-29 directed ity of sulfates 00:00: [place] 17.5-3.13-1 00 Medical .6 gram Branch sodium,pota 2021-0 Yes [id number] Take as [facility] ssium,mag 07-29 directed ity of sulfates 00:00: [place] 17.5-3.13-1 00 Medical .6 gram Branch sodium,pota 2-0 Yes [id number] Take as [facility] ssium,mag 07-29 directed ity of sulfates 00:00: [place] 17.5-3.13-1 00 Medical .6 gram Branch sodium,pota 2022-0 2023- No [id number] Take as [facility] ssium,mag 07-29 directed ity o f sulfates 00:00: 00:00 [place] 17.5-3.13-1 00 :00 Medical .6 gram Branch sodium,pota 2021-0 3- No [id number] Take as [facility] ssium,mag 07-29 directed ity o f sulfates 00:00: 00:00 [place] 17.5-3.13-1 00 :00 Medical .6 gram Branch pravastatin 2021-0 Yes [id number] 20mg Take 1 [facility] 20 mg 2-09 tablet by ity of tablet 00:00: mouth at [place] 00 bedtime. Medical Branch amLODIPine 2021-0 Yes [id number] 5mg Take 1 [facility] 5 mg tablet 2-09 tablet by ity of 00:00: mouth [place] 00 daily. Medical Branch metformin 2021-0 Yes [id number] 1000mg Take 2 [facility] ER 500 mg 2-09 tablets by ity of 24 hr 00:00: mouth 2 [place] tablet 00 (two) Medical times Branch daily with meals. insulin 2021-0 Yes [id number] 10U inject [facility] ers aspart 2- 10-30 ity of U-100 00:00: Units [place] (NOVOLOG 00 under the Medica l FLEXPEN skin 3 Branch U-100 (three) INSULIN) times 100 unit/mL daily (3 mL) before injection meals. pravastatin 2021-0 Yes [id number] 20mg Take 1 [facility] 20 mg 2-09 tablet by ity of tablet 00:00: mouth at [place] 00 bedtime. Medical Branch amLODIPine 2021-0 Yes [id number] 5mg Take 1 [facility] nivers 5 mg tablet 2-09 tablet by ity of 00:00: mouth [place] 00 daily. Medical Branch metformin 2021-0 Yes [id number] 1000mg Take 2 [facility] ER 500 mg 2-09 tablets by ity of 24 hr 00:00: mouth 2 [place] tablet 00 (two) Medical times Branch daily with meals. insulin 2021-0 Yes [id number] 10U inject [facility] ers aspart 2-09 10-30 ity of U-100 00:00: Units [place] (NOVOLOG 00 under the Medica l FLEXPEN skin 3 Branch U-100 (three) INSULIN) times 100 unit/mL daily (3 mL) before injection meals. pravastatin 2021-0 Yes [id number] 20mg Take 1 [facility] 20 mg 2-09 tablet by ity of tablet 00:00: mouth at [place] 00 bedtime. Medical Branch amLODIPine 2021-0 Yes [id number] 5mg Take 1 [facility] nivers 5 mg tablet 2-09 tablet by ity of 00:00: mouth [place] 00 daily. Medical Branch metformin 2021-0 Yes [id number] 1000mg Take 2 [facility] ER 500 mg 2-09 tablets by ity of 24 hr 00:00: mouth 2 [place] tablet 00 (two) Medical times Branch daily with meals. insulin 2021-0 Yes [id number] 10U inject [facility] ers aspart 2- 10-30 ity of U-100 00:00: Units [place] (NOVOLOG 00 under the Medica l FLEXPEN skin 3 Branch U-100 (three) INSULIN) times 100 unit/mL daily (3 mL) before injection meals. pravastatin 2021-0 Yes [id number] 20mg Take 1 [facility] 20 mg 2-09 tablet by ity of tablet 00:00: mouth at [place] 00 bedtime. Medical Branch amLODIPine 2021-0 Yes [id number] 5mg Take 1 [facility] nivers 5 mg tablet 2-09 tablet by ity of 00:00: mouth [place] 00 daily. Medical Branch metformin 2021-0 Yes [id number] 1000mg Take 2 [facility] ER 500 mg 2-09 tablets by ity of 24 hr 00:00: mouth 2 [place] tablet 00 (two) Medical times Branch daily with meals. insulin 2021-0 Yes [id number] 10U inject [facility] ers aspart 2- 10-30 ity of U-100 00:00: Units [place] (NOVOLOG 00 under the Medica l FLEXPEN skin 3 Branch U-100 (three) INSULIN) times 100 unit/mL daily (3 mL) before injection meals. pravastatin 2021-0 Yes [id number] 20mg Take 1 [facility] 20 mg 2-09 tablet by ity of tablet 00:00: mouth at [place] 00 bedtime. Medical Branch amLODIPine 2021-0 Yes [id number] 5mg Take 1 [facility] nivers 5 mg tablet 2-09 tablet by ity of 00:00: mouth [place] 00 daily. Medical Branch metformin 2021-0 Yes [id number] 1000mg Take 2 [facility] ER 500 mg 2-09 tablets by ity of 24 hr 00:00: mouth 2 [place] tablet 00 (two) Medical times Branch daily with meals. insulin 2021-0 Yes [id number] 10U inject [facility] ers aspart 2- 10-30 ity of U-100 00:00: Units [place] (NOVOLOG 00 under the Medica l FLEXPEN skin 3 Branch U-100 (three) INSULIN) times 100 unit/mL daily (3 mL) before injection meals. pravastatin 2021-0 Yes [id number] 20mg Take 1 [facility] 20 mg 2-09 tablet by ity of tablet 00:00: mouth at [place] 00 bedtime. Medical Branch amLODIPine 2021-0 Yes [id number] 5mg Take 1 [facility] nivers 5 mg tablet 2-09 tablet by ity of 00:00: mouth [place] 00 daily. Medical Branch metformin 2021-0 Yes [id number] 1000mg Take 2 [facility] ER 500 mg 2-09 tablets by ity of 24 hr 00:00: mouth 2 [place] tablet 00 (two) Medical times Branch daily with meals. insulin 2021-0 Yes [id number] 10U inject [facility] ers aspart 2- 10-30 ity of U-100 00:00: Units [place] (NOVOLOG 00 under the Medica l FLEXPEN skin 3 Branch U-100 (three) INSULIN) times 100 unit/mL daily (3 mL) before injection meals. pravastatin 2021-0 Yes [id number] 20mg Take 1 [facility] 20 mg 2-09 tablet by ity of tablet 00:00: mouth at [place] 00 bedtime. Medical Branch amLODIPine 2021-0 Yes [id number] 5mg Take 1 [facility] nivers 5 mg tablet 2-09 tablet by ity of 00:00: mouth [place] 00 daily. Medical Branch insulin 2021-0 Yes [id number] 10U inject [facility] vers aspart 2- 10-30 ity of U-100 00:00: Units [place] (NOVOLOG 00 under the Medica l FLEXPEN skin 3 Branch U-100 (three) INSULIN) times 100 unit/mL daily (3 mL) before injection meals. pravastatin 2021-0 Yes [id number] 20mg Take 1 [facility] 20 mg 2-09 tablet by ity of tablet 00:00: mouth at [place] 00 bedtime. Medical Branch amLODIPine 2021-0 Yes [id number] 5mg Take 1 [facility] nivers 5 mg tablet 2-09 tablet by ity of 00:00: mouth [place] 00 daily. Medical Branch insulin 2021-0 Yes [id number] 10U inject [facility] vers aspart 2- 10-30 ity of U-100 00:00: Units [place] (NOVOLOG 00 under the Medica l FLEXPEN skin 3 Branch U-100 (three) INSULIN) times 100 unit/mL daily (3 mL) before injection meals. pravastatin 2021-0 Yes [id number] 20mg Take 1 [facility] 20 mg 2-09 tablet by ity of tablet 00:00: mouth at [place] 00 bedtime. Medical Branch amLODIPine 2021-0 Yes [id number] 5mg Take 1 [facility] nivers 5 mg tablet 2-09 tablet by ity of 00:00: mouth [place] 00 daily. Medical Branch insulin 2021-0 Yes [id number] 10U inject [facility] vers aspart 2-09 10-30 ity of U-100 00:00: Units (NOVOLOG 00 under the Medica l FLEXPEN skin 3 Branch U-100 (three) INSULIN) times 100 unit/mL daily (3 mL) before injection meals. pravastatin 2021-0 Yes [id number] 20mg Take 1 [facility] 20 mg 2-09 tablet by ity of tablet 00:00: mouth at [place] 00 bedtime. Medical Branch amLODIPine 2021-0 Yes [id number] 5mg Take 1 [facility] nivers 5 mg tablet 2-09 tablet by ity of 00:00: mouth [place] 00 daily. Medical Branch insulin 2021-0 Yes [id number] 10U inject [facility] vers aspart 2-09 10-30 ity of U-100 00:00: Units [place] (NOVOLOG 00 under the Medica l FLEXPEN skin 3 Branch U-100 (three) INSULIN) times 100 unit/mL daily (3 mL) before injection meals. pravastatin 2021-0 Yes [id number] 20mg Take 1 [facility] 20 mg 2-09 tablet by ity of tablet 00:00: mouth at [place] 00 bedtime. Medical Branch amLODIPine 2021-0 Yes [id number] 5mg Take 1 [facility] nivers 5 mg tablet 2-09 tablet by ity of 00:00: mouth [place] 00 daily. Medical Branch insulin 2021-0 Yes [id number] 10U inject [facility] vers aspart 2-09 10-30 ity of U-100 00:00: Units [place] (NOVOLOG 00 under the Medica l FLEXPEN skin 3 Branch U-100 (three) INSULIN) times 100 unit/mL daily (3 mL) before injection meals. pravastatin 2021-0 Yes [id number] 20mg Take 1 [facility] 20 mg 2-09 tablet by ity of tablet 00:00: mouth at [place] 00 bedtime. Medical Branch amLODIPine 2021-0 Yes [id number] 5mg Take 1 [facility] nivers 5 mg tablet 2-09 tablet by ity of 00:00: mouth [place] 00 daily. Medical Branch insulin 2021-0 Yes [id number] 10U inject [facility] vers aspart 2- 10-30 ity of U-100 00:00: Units [place] (NOVOLOG 00 under the Medica l FLEXPEN skin 3 Branch U-100 (three) INSULIN) times 100 unit/mL daily (3 mL) before injection meals. pravastatin 2021-0 Yes [id number] 20mg Take 1 [facility] 20 mg 2-09 tablet by ity of tablet 00:00: mouth at [place] 00 bedtime. Medical Branch amLODIPine 2021-0 Yes [id number] 5mg Take 1 [facility] nivers 5 mg tablet 2-09 tablet by ity of 00:00: mouth [place] 00 daily. Medical Branch insulin 2021-0 Yes [id number] 10U inject [facility] vers aspart 2-09 10-30 ity of U-100 00:00: Units [place] (NOVOLOG 00 under the Medica l FLEXPEN skin 3 Branch U-100 (three) INSULIN) times 100 unit/mL daily (3 mL) before injection meals. pravastatin 2021-0 Yes [id number] 20mg Take 1 [facility] 20 mg 2-09 tablet by ity of tablet 00:00: mouth at [place] 00 bedtime. Medical Branch amLODIPine 2021-0 Yes [id number] 5mg Take 1 [facility] n[facility] 5 mg tablet 2-09 tablet by ity of 00:00: mouth [place] 00 daily. Medical Branch insulin 2021-0 Yes [id number] 10U inject [facility] vers aspart 2-09 10-30 ity of U-100 00:00: Units [place] (NOVOLOG 00 under the Medica l FLEXPEN skin 3 Branch U-100 (three) INSULIN) times 100 unit/mL daily (3 mL) before injection meals. pravastatin 2021-0 Yes [id number] 20mg Take 1 [facility] 20 mg 2-09 tablet by ity of tablet 00:00: mouth at [place] 00 bedtime. Medical Branch amLODIPine 2021-0 Yes [id number] 5mg Take 1 [facility] n[facility] 5 mg tablet 2-09 tablet by ity of 00:00: mouth [place] 00 daily. Medical Branch insulin 2021-0 Yes [id number] 10U inject [facility] vers aspart 2-09 10-30 ity of U-100 00:00: Units [place] (NOVOLOG 00 under the Medica l FLEXPEN skin 3 Branch U-100 (three) INSULIN) times 100 unit/mL daily (3 mL) before injection meals. pravastatin 2021-0 Yes [id number] 20mg Take 1 [facility] 20 mg 2-09 tablet by ity of tablet 00:00: mouth at [place] 00 bedtime. Medical Branch amLODIPine 2021-0 Yes [id number] 5mg Take 1 [facility] n[facility] 5 mg tablet 2-09 tablet by ity of 00:00: mouth [place] 00 daily. Medical Branch insulin 2021-0 Yes [id number] 10U inject [facility] vers aspart 2- 10-30 ity of U-100 00:00: Units (NOVOLOG 00 under the Medica l FLEXPEN skin 3 Branch U-100 (three) INSULIN) times 100 unit/mL daily (3 mL) before injection meals. pravastatin 2021-0 Yes [id number] 20mg Take 1 [facility] 20 mg 2-09 tablet by ity of tablet 00:00: mouth at [place] 00 bedtime. Medical Branch amLODIPine 2021-0 Yes [id number] 5mg Take 1 [facility] nivers 5 mg tablet 2-09 tablet by ity of 00:00: mouth [place] 00 daily. Medical Branch insulin 2021-0 Yes [id number] 10U inject [facility] vers aspart 2- 10-30 ity of U-100 00:00: Units (NOVOLOG 00 under the Medica l FLEXPEN skin 3 Branch U-100 (three) INSULIN) times 100 unit/mL daily (3 mL) before injection meals. pravastatin 2021-0 Yes [id number] 20mg Take 1 [facility] 20 mg 2-09 tablet by ity of tablet 00:00: mouth at [place] 00 bedtime. Medical Branch amLODIPine 2021-0 Yes [id number] 5mg Take 1 [facility] n[facility] 5 mg tablet 2-09 tablet by ity of 00:00: mouth [place] 00 daily. Medical Branch insulin 2021-0 Yes [id number] 10U inject [facility] vers aspart 2- 10-30 ity of U-100 00:00: Units [place] (NOVOLOG 00 under the Medica l FLEXPEN skin 3 Branch U-100 (three) INSULIN) times 100 unit/mL daily (3 mL) before injection meals. pravastatin 2021-0 Yes [id number] 20mg Take 1 [facility] 20 mg 2-09 tablet by ity of tablet 00:00: mouth at [place] 00 bedtime. Medical Branch amLODIPine 2021-0 Yes [id number] 5mg Take 1 [facility] n[facility] 5 mg tablet 2-09 tablet by ity of 00:00: mouth [place] 00 daily. Medical Branch insulin 2021-0 Yes [id number] 10U inject [facility] vers aspart 2-09 10-30 ity of U-100 00:00: Units [place] (NOVOLOG 00 under the Medica l FLEXPEN skin 3 Branch U-100 (three) INSULIN) times 100 unit/mL daily (3 mL) before injection meals. pravastatin 2021-0 Yes [id number] 20mg Take 1 [facility] 20 mg 2-09 tablet by ity of tablet 00:00: mouth at [place] 00 bedtime. Medical Branch amLODIPine 2021-0 Yes [id number] 5mg Take 1 [facility] n[facility] 5 mg tablet 2-09 tablet by ity of 00:00: mouth [place] 00 daily. Medical Branch insulin 2021-0 Yes [id number] 10U inject [facility] vers aspart 2-09 10-30 ity of U-100 00:00: Units [place] (NOVOLOG 00 under the Medica l FLEXPEN skin 3 Branch U-100 (three) INSULIN) times 100 unit/mL daily (3 mL) before injection meals. pravastatin 2021-0 Yes [id number] 20mg Take 1 [facility] 20 mg 2-09 tablet by ity of tablet 00:00: mouth at [place] 00 bedtime. Medical Branch amLODIPine 2021-0 Yes [id number] 5mg Take 1 [facility] n[facility] 5 mg tablet 2-09 tablet by ity of 00:00: mouth [place] 00 daily. Medical Branch insulin 2021-0 Yes [id number] 10U inject [facility] vers aspart 2-09 10-30 ity of U-100 00:00: Units [place] (NOVOLOG 00 under the Medica l FLEXPEN skin 3 Branch U-100 (three) INSULIN) times 100 unit/mL daily (3 mL) before injection meals. pravastatin 2021-0 Yes [id number] 20mg Take 1 [facility] 20 mg 2-09 tablet by ity of tablet 00:00: mouth at [place] [address] bedtime. Medical Branch amLODIPine 2021-0 Yes [id number] 5mg Take 1 [facility] nivers 5 mg tablet 2-09 tablet by ity of 00:00: mouth [place] 00 daily. Medical [facility] insulin 2021-0 Yes [id number] 10U inject [facility] vers aspart 2- 10-30 ity of U-100 00:00: Units [place] (NOVOLOG 00 under the Medica l FLEXPEN skin 3 Branch U-100 (three) INSULIN) times 100 unit/mL daily (3 mL) before injection meals. pravastatin 2021-0 Yes [id number] 20mg Take 1 [facility] 20 mg 2-09 tablet by ity of tablet 00:00: mouth at [place] 00 bedtime. Medical Branch amLODIPine 2021-0 Yes [id number] 5mg Take 1 [facility] n[facility] 5 mg tablet 2-09 tablet by ity of 00:00: mouth 00 daily. Medical Branch insulin 2021-0 Yes [id number] 10U inject [facility] vers aspart 2- 10-30 ity of U-100 00:00: Units [place] (NOVOLOG 00 under the Medica l FLEXPEN skin 3 Branch U-100 (three) INSULIN) times 100 unit/mL daily (3 mL) before injection meals. pravastatin 2021-0 Yes [id number] 20mg Take 1 [facility] 20 mg 2-09 tablet by ity of tablet 00:00: mouth at [place] 00 bedtime. Medical Branch amLODIPine 2021-0 Yes [id number] 5mg Take 1 [facility] n[facility] 5 mg tablet 2-09 tablet by ity of 00:00: mouth [place] 00 daily. Medical Branch insulin 2021-0 Yes [id number] 10U inject [facility] vers aspart 2- 10-30 ity of U-100 00:00: Units (NOVOLOG 00 under the Medica l FLEXPEN skin 3 Branch U-100 (three) INSULIN) times 100 unit/mL daily (3 mL) before injection meals. pravastatin 2021-0 Yes [id number] 20mg Take 1 [facility] 20 mg 2-09 tablet by ity of tablet 00:00: mouth at [place] [address] bedtime. Medical Branch amLODIPine 2021-0 Yes [id number] 5mg Take 1 [facility] n[facility] 5 mg tablet 2-09 tablet by ity of 00:00: mouth [place] 00 daily. Medical Branch insulin 2021-0 Yes [id number] 10U inject [facility] vers aspart 2- 10-30 ity of U-100 00:00: Units (NOVOLOG 00 under the Medica l FLEXPEN skin 3 Branch U-100 (three) INSULIN) times 100 unit/mL daily (3 mL) before injection meals. pravastatin 2021-0 Yes [id number] 20mg Take 1 [facility] 20 mg 2-09 tablet by ity of tablet 00:00: mouth at [place] 00 bedtime. Medical Branch amLODIPine 2021-0 Yes [id number] 5mg Take 1 [facility] n[facility] 5 mg tablet 2-09 tablet by ity of 00:00: mouth [place] 00 daily. Medical Branch insulin 2021-0 Yes [id number] 10U inject [facility] vers aspart 2- 10-30 ity of U-100 00:00: Units (NOVOLOG 00 under the Medica l FLEXPEN skin 3 Branch U-100 (three) INSULIN) times 100 unit/mL daily (3 mL) before injection meals. pravastatin 2021-0 Yes [id number] 20mg Take 1 [facility] 20 mg 2-09 tablet by ity of tablet 00:00: mouth at [place] 00 bedtime. Medical Branch amLODIPine 2021-0 Yes [id number] 5mg Take 1 [facility] nivers 5 mg tablet 2-09 tablet by ity of 00:00: mouth [place] 00 daily. Medical Branch insulin 2021-0 Yes [id number] 10U inject [facility] vers aspart 2- 10-30 ity of U-100 00:00: Units (NOVOLOG 00 under the Medica l FLEXPEN skin 3 Branch U-100 (three) INSULIN) times 100 unit/mL daily (3 mL) before injection meals. pravastatin 2021-0 Yes [id number] 20mg Take 1 [facility] 20 mg 2-09 tablet by ity of tablet 00:00: mouth at [place] 00 bedtime. Medical Branch amLODIPine 2021-0 Yes [id number] 5mg Take 1 [facility] nivers 5 mg tablet 2-09 tablet by ity of 00:00: mouth [place] 00 daily. Medical Branch insulin 2021-0 Yes [id number] 10U inject [facility] vers aspart 2- 10-30 ity of U-100 00:00: Units [place] (NOVOLOG 00 under the Medica l FLEXPEN skin 3 Branch U-100 (three) INSULIN) times 100 unit/mL daily (3 mL) before injection meals. pravastatin 2021-0 Yes [id number] 20mg Take 1 [facility] 20 mg 2-09 tablet by [facility] of tablet 00:00: mouth at [place] [address] bedtime. Medical Branch amLODIPine 2021-0 Yes [id number] 5mg Take 1 [facility] nivers 5 mg tablet 2-09 tablet by ity of 00:00: mouth [place] 00 daily. Medical Branch insulin 2021-0 Yes [id number] 10U inject [facility] vers aspart 05-08 10-30 ity of U-100 00:00: Units [place] (NOVOLOG 00 under the Medica l FLEXPEN skin 3 Branch U-100 (three) INSULIN) times 100 unit/mL daily (3 mL) before injection meals. pravastatin 2021-0 Yes [id number] 20mg Take 1 [facility] 20 mg 2-09 tablet by it[facility] of tablet 00:00: mouth at [place] [address] bedtime. [facility] Branch amLODIPine 2021-0 Yes [id number] 5mg Take 1 [facility] nivers 5 mg tablet 2-09 tablet by ity of 00:00: mouth [place] 00 daily. [facility] Branch pravastatin 2021-0 Yes [id number] 20mg Take 1 [facility] 20 mg 2-09 tablet by it[facility] of tablet 00:00: mouth at [place] [address] bedtime. [facility] Branch amLODIPine 2021-0 Yes [id number] 5mg Take 1 [facility] nivers 5 mg tablet 2-09 tablet by ity of 00:00: mouth [place] 00 daily. [facility] Branch pravastatin 2021-0 Yes [id number] 20mg Take 1 [facility] 20 mg 2-09 tablet by ity of tablet 00:00: mouth at [place] [address] bedtime. [facility] Branch amLODIPine 2021-0 Yes [id number] 5mg Take 1 [facility] n[facility] 5 mg tablet 2-09 tablet by ity of 00:00: mouth [place] 00 daily. [facility] Branch pravastatin 2021-0 Yes [id number] 20mg Take 1 [facility] 20 mg 2-09 tablet by ity of tablet 00:00: mouth at [place] [address] bedtime. [facility] Branch amLODIPine 2021-0 Yes [id number] 5mg Take 1 [facility] n[facility] 5 mg tablet 2-09 tablet by ity of 00:00: mouth [place] 00 daily. [facility] pravastatin 2021-0 Yes [id number] 20mg Take 1 [facility] 20 mg 2-09 tablet by ity of tablet 00:00: mouth at [place] 00 bedtime. [facility] amLODIPine 2-0 Yes [id number] 5mg Take 1 [facility] n[facility] 5 mg tablet 2-09 tablet by ity of 00:00: mouth [place] 00 daily. [facility] pravastatin 2-0 Yes [id number] 20mg Take 1 [facility] 20 mg 2-09 tablet by it[facility] of tablet 00:00: mouth at [place] 00 bedtime. [facility] Branch amLODIPine 2021-0 Yes [id number] 5mg Take 1 [facility] n[facility] 5 mg tablet 2-09 tablet by ity of 00:00: mouth [place] 00 daily. [facility] pravastatin 2021-0 Yes [id number] 20mg Take 1 [facility] 20 mg 2-09 tablet by it[facility] of tablet 00:00: mouth at [place] bedtime. [facility] amLODIPine 2021-0 Yes [id number] 5mg Take 1 [facility] 5 mg tablet 2-09 tablet by ity of 00:00: mouth [place] 00 daily. [facility] pravastatin 2021-0 Yes [id number] 20mg Take 1 [facility] 20 mg 2-09 tablet by [facility] of tablet 00:00: mouth at [place] [address] bedtime. [facility] Branch amLODIPine 2021-0 Yes [id number] 5mg Take 1 [facility] 5 mg tablet 2-09 tablet by ity of 00:00: mouth [place] 00 daily. [facility] pravastatin 2-0 Yes [id number] 20mg Take 1 [facility] 20 mg 2-09 tablet by ity of tablet 00:00: mouth at [place] 00 bedtime. [facility] Branch amLODIPine 2-0 Yes [id number] 5mg Take 1 [facility] 5 mg tablet 2-09 tablet by ity of 00:00: mouth [place] 00 daily. [facility] pravastatin 2-0 Yes [id number] 20mg Take 1 [facility] 20 mg 2-09 tablet by it[facility] of tablet 00:00: mouth at [place] 00 bedtime. [facility] amLODIPine 2-0 Yes [id number] 5mg Take 1 [facility] 5 mg tablet 2-09 tablet by ity of 00:00: mouth [place] 00 daily. [facility] pravastatin 2-0 Yes [id number] 20mg Take 1 [facility] 20 mg 2-09 tablet by it[facility] of tablet 00:00: mouth at [place] 00 bedtime. [facility] amLODIPine 2022-0 Yes [id number] 5mg Take 1 [facility] 5 mg tablet 2-09 tablet by ity of 00:00: mouth [place] 00 daily. [facility] pravastatin 2021-0 Yes [id number] 20mg Take 1 [facility] 20 mg 2-09 tablet by it[facility] of tablet 00:00: mouth at [place] 00 bedtime. [facility] amLODIPine 2021-0 Yes [id number] 5mg Take 1 [facility] 5 mg tablet 2-09 tablet by ity of 00:00: mouth [place] 00 daily. [facility] Branch pravastatin 2021-0 Yes [id number] 20mg Take 1 [facility] 20 mg 2-09 tablet by it[facility] of tablet 00:00: mouth at [place] 00 bedtime. [facility] amLODIPine 2021-0 Yes [id number] 5mg Take 1 [facility] 5 mg tablet 2-09 tablet by ity of 00:00: mouth [place] 00 daily. [facility] pravastatin 2021-0 Yes [id number] 20mg Take 1 [facility] 20 mg 2-09 tablet by it[facility] of tablet 00:00: mouth at [place] 00 bedtime. [facility] amLODIPine 2021-0 Yes [id number] 5mg Take 1 [facility] 5 mg tablet 2-09 tablet by ity of 00:00: mouth [place] 00 daily. [facility] pravastatin 2021-0 Yes [id number] 20mg Take 1 [facility] 20 mg 2-09 tablet by it[facility] of tablet 00:00: mouth at [place] 00 bedtime. [facility] amLODIPine 2021-0 Yes [id number] 5mg Take 1 [facility] 5 mg tablet 2-09 tablet by ity of 00:00: mouth 00 daily. [facility] Branch pravastatin 2-0 Yes [id number] 20mg Take 1 [facility] 20 mg 2-09 tablet by ity of tablet 00:00: mouth at [place] 00 bedtime. [facility] amLODIPine 2021-0 Yes [id number] 5mg Take 1 [facility] 5 mg tablet 2-09 tablet by ity of 00:00: mouth [place] 00 daily. [facility] Branch pravastatin 2-0 Yes [id number] 20mg Take 1 [facility] 20 mg 2-09 tablet by it[facility] of tablet 00:00: mouth at [place] 00 bedtime. [facility] amLODIPine 2021-0 Yes [id number] 5mg Take 1 [facility] 5 mg tablet 2-09 tablet by ity of 00:00: mouth [place] 00 daily. [facility] Branch pravastatin 2-0 Yes [id number] 20mg Take 1 [facility] 20 mg 2-09 tablet by ity of tablet 00:00: mouth at [place] 00 bedtime. [facility] amLODIPine 2-0 Yes [id number] 5mg Take 1 [facility] 5 mg tablet 2-09 tablet by ity of 00:00: mouth [place] 00 daily. [facility] Branch pravastatin 2-0 Yes [id number] 20mg Take 1 [facility] 20 mg 2-09 tablet by it[facility] of tablet 00:00: mouth at [place] 00 bedtime. [facility] Branch amLODIPine 2-0 Yes [id number] 5mg Take 1 [facility] 5 mg tablet 2-09 tablet by ity of 00:00: mouth [place] 00 daily. [facility] Branch pravastatin 2-0 Yes [id number] 20mg Take 1 [facility] 20 mg 2-09 tablet by ity of tablet 00:00: mouth at [place] bedtime. [facility] Branch amLODIPine 2-0 Yes [id number] 5mg Take 1 [facility] 5 mg tablet 2-09 tablet by it[facility] of 00:00: mouth [place] 00 daily. [facility] Branch pravastatin 2-0 Yes [id number] 20mg Take 1 [facility] 20 mg 2-09 tablet by ity of tablet 00:00: mouth at [place] bedtime. [facility] Branch amLODIPine 2-0 Yes [id number] 5mg Take 1 [facility] 5 mg tablet 2-09 tablet by ity of 00:00: mouth 00 daily. [facility] Branch pravastatin 2-0 Yes [id number] 20mg Take 1 [facility] 20 mg 2-09 tablet by ity of tablet 00:00: mouth at [place] bedtime. [facility] Branch amLODIPine 2-0 Yes [id number] 5mg Take 1 [facility] 5 mg tablet 2-09 tablet by ity of 00:00: mouth 00 daily. [facility] Branch pravastatin 2-0 Yes [id number] 20mg Take 1 [facility] 20 mg 2-09 tablet by ity of tablet 00:00: mouth at [place] 00 bedtime. [facility] Branch amLODIPine 2-0 Yes [id number] 5mg Take 1 [facility] 5 mg tablet 2-09 tablet by ity of 00:00: mouth [place] 00 daily. [facility] Branch pravastatin 2-0 Yes [id number] 20mg Take 1 [facility] 20 mg 2-09 tablet by ity of tablet 00:00: mouth at [place] 00 bedtime. [facility] Branch amLODIPine 2-0 Yes [id number] 5mg Take 1 [facility] n[facility] 5 mg tablet 2-09 tablet by ity of 00:00: mouth [place] 00 daily. [facility] Branch pravastatin 2-0 Yes [id number] 20mg Take 1 [facility] 20 mg 2-09 tablet by ity of tablet 00:00: mouth at [place] 00 bedtime. [facility] Branch amLODIPine 2-0 Yes [id number] 5mg Take 1 [facility] n[facility] 5 mg tablet 2-09 tablet by ity of 00:00: mouth [place] 00 daily. [facility] Branch pravastatin 2-0 Yes [id number] 20mg Take 1 [facility] 20 mg 2-09 tablet by ity of tablet 00:00: mouth at [place] bedtime. [facility] Branch amLODIPine 2-0 Yes [id number] 5mg Take 1 [facility] n[facility] 5 mg tablet 2-09 tablet by ity of 00:00: mouth [place] 00 daily. [facility] Branch pravastatin 2-0 Yes [id number] 20mg Take 1 [facility] 20 mg 2-09 tablet by ity of tablet 00:00: mouth at [place] [address] bedtime. [facility] Branch amLODIPine 2021-0 Yes [id number] 5mg Take 1 [facility] n[facility] 5 mg tablet 2-09 tablet by ity of 00:00: mouth [place] 00 daily. [facility] Branch pravastatin 2-0 Yes [id number] 20mg Take 1 [facility] 20 mg 2-09 tablet by ity of tablet 00:00: mouth at [place] 00 bedtime. [facility] Branch amLODIPine 2-0 Yes [id number] 5mg Take 1 [facility] nivers 5 mg tablet 2-09 tablet by ity of 00:00: mouth [place] 00 daily. [facility] Branch pravastatin 2-0 Yes [id number] 20mg Take 1 [facility] 20 mg 2-09 tablet by ity of tablet 00:00: mouth at [place] 00 bedtime. [facility] Branch amLODIPine 2-0 Yes [id number] 5mg Take 1 [facility] nivers 5 mg tablet 2-09 tablet by ity of 00:00: mouth [place] 00 daily. [facility] Branch pravastatin 2-0 Yes [id number] 20mg Take 1 [facility] 20 mg 2-09 tablet by ity of tablet 00:00: mouth at [place] 00 bedtime. Medical Branch amLODIPine 2022-0 Yes [id number] 5mg Take 1 [facility] nivers 5 mg tablet 2-09 tablet by ity of 00:00: mouth [place] 00 daily. Medical Branch pravastatin Yes [id number] 20mg Take 1 [facility] 20 mg 2-09 tablet by ity of tablet 00:00: mouth at [place] 00 bedtime. Medical Branch amLODIPine Yes [id number] 5mg Take 1 [facility] nivers 5 mg tablet 2-09 tablet by ity of 00:00: mouth [place] 00 daily. Medical Branch insulin 2022- No [id number] 10U inject [facility] [place] aspart 05-08- 10-30 ity of U-100 00:00: 00:00 Units [place] (NOVOLOG 00 :00 under the Medica l FLEXPEN skin 3 Branch U-100 (three) INSULIN) times 100 unit/mL daily (3 mL) before injection meals. metformin 2021- No [id number] 1000mg Take 2 [facility] ER 500 mg 05-08 tablets by ity of 24 hr 00:00: 00:00 mouth 2 [place] tablet 00 :00 (two) Medical times Branch daily with meals. Miscellaneo 2020-03 Yes [id number] Pt [employer] [facility] 04-03 requesting ity of Supply Misc 00:00: a rx for [place] 00 Reli On 6 Medical mm x 31 Branch Gauge (15/64" x 0.25 mm). Please provide. For dx E11.9. takes 4 injections of insulin a day. Miscellaneo 2020-03 Yes [id number] Pt Un [employer] [facility] 04-03 requesting ity of Supply Misc 00:00: a rx for [place] 00 Reli On 6 Medical mm x 31 Branch Gauge (15/64" x 0.25 mm). Please provide. For dx E11.9. takes 4 injections of insulin a day. Miscellaneo 2020-03 Yes [id number] Pt [employer] [facility] 04-03 requesting ity of Supply Misc 00:00: a rx for [place] 00 Reli On 6 Medical mm x 31 Branch Gauge (15/64" x 0.25 mm). Please provide. For dx E11.9. takes 4 injections of insulin a day. Miscellaneo 2020-03 Yes [id number] Pt [facility] 04-03 requesting ity of Supply Misc 00:00: a rx for [place] 00 Reli On 6 Medical mm x 31 Branch Gauge (15/64" x 0.25 mm). Please provide. For dx E11.9. takes 4 injections of insulin a day. Miscellaneo 2020-03 Yes [id number] Pt Un [facility] 04-03 requesting ity of Supply Misc 00:00: a rx for [place] 00 Reli On 6 Medical mm x 31 Branch Gauge (15/64" x 0.25 mm). Please provide. For dx E11.9. takes 4 injections of insulin a day. Miscellaneo 2020-03 Yes [id number] Pt Un [facility] 04-03 requesting ity of Supply Misc 00:00: a rx for [place] 00 Reli On 6 Medical mm x 31 Branch Gauge (15/64" x 0.25 mm). Please provide. For dx E11.9. takes 4 injections of insulin a day. Miscellaneo 2020-03 Yes [id number] Pt U [facility] 04-03 requesting ity of Supply Misc 00:00: a rx for [place] 00 Reli On 6 Medical mm x 31 Branch Gauge (15/64" x 0.25 mm). Please provide. For dx E11.9. takes 4 injections of insulin a day. Miscellaneo 2020-03 Yes [id number] Pt U [facility] 04-03 requesting ity of Supply Misc 00:00: a rx for [place] 00 Reli On 6 Medical mm x 31 Branch Gauge (15/64" x 0.25 mm). Please provide. For dx E11.9. takes 4 injections of insulin a day. Miscellaneo 2020-03 Yes [id number] Pt U [facility] 04-03 requesting ity of Supply Misc 00:00: a rx for [place] 00 Reli On 6 Medical mm x 31 Branch Gauge (15/64" x 0.25 mm). Please provide. For dx E11.9. takes 4 injections of insulin a day. Miscellaneo 2020-03 Yes [id number] Pt U [facility] 04-03 requesting ity of Supply Misc 00:00: a rx for [place] 00 Reli On 6 Medical mm x 31 Branch Gauge (15/64" x 0.25 mm). Please provide. For dx E11.9. takes 4 injections of insulin a day. Miscellaneo 2020-03 Yes [id number] Pt U [facility] 04-03 requesting ity of Supply Misc 00:00: a rx for [place] 00 Reli On 6 Medical mm x 31 Branch Gauge (15/64" x 0.25 mm). Please provide. For dx E11.9. takes 4 injections of insulin a day. Miscellaneo 2020-03 Yes [id number] Pt U [facility] 04-03 requesting ity of Supply Misc 00:00: a rx for [place] 00 Reli On 6 Medical mm x 31 Branch Gauge (15/64" x 0.25 mm). Please provide. For dx E11.9. takes 4 injections of insulin a day. Miscellaneo 2020-03 Yes [id number] Pt U [facility] 04-03 requesting ity of Supply Misc 00:00: a rx for [place] 00 Reli On 6 Medical mm x 31 Branch Gauge (15/64" x 0.25 mm). Please provide. For dx E11.9. takes 4 injections of insulin a day. Miscellaneo 2020-03 Yes [id number] Pt U [facility] 04-03 requesting ity of Supply Misc 00:00: a rx for [place] 00 Reli On 6 Medical mm x 31 Branch Gauge (15/64" x 0.25 mm). Please provide. For dx E11.9. takes 4 injections of insulin a day. Miscellaneo 2020-03 Yes [id number] Pt U [facility] 04-03 requesting ity of Supply Misc 00:00: a rx for [place] 00 Reli On 6 Medical mm x 31 Branch Gauge (15/64" x 0.25 mm). Please provide. For dx E11.9. takes 4 injections of insulin a day. Miscellaneo 2020-03 Yes [id number] Pt U [facility] 04-03 requesting ity of Supply Misc 00:00: a rx for [place] 00 Reli On 6 Medical mm x 31 Branch Gauge (15/64" x 0.25 mm). Please provide. For dx E11.9. takes 4 injections of insulin a day. Miscellaneo 2020-03 Yes [id number] Pt U [employer] [facility] 04-03 requesting ity of Supply Misc 00:00: a rx for [place] 00 Reli On 6 Medical mm x 31 Branch Gauge (15/64" x 0.25 mm). Please provide. For dx E11.9. takes 4 injections of insulin a day. Miscellaneo 2020-03 Yes [id number] Pt U [facility] 04-03 requesting ity of Supply Misc 00:00: a rx for [place] 00 Reli On 6 Medical mm x 31 Branch Gauge (15/64" x 0.25 mm). Please provide. For dx E11.9. takes 4 injections of insulin a day. Miscellaneo 2020-03 Yes [id number] Pt U [facility] 04-03 requesting ity of Supply Misc 00:00: a rx for [place] 00 Reli On 6 Medical mm x 31 Branch Gauge (15/64" x 0.25 mm). Please provide. For dx E11.9. takes 4 injections of insulin a day. Miscellaneo 2020-03 Yes [id number] Pt U [facility] 04-03 requesting ity of Supply Misc 00:00: a rx for [place] 00 Reli On 6 Medical mm x 31 Branch Gauge (15/64" x 0.25 mm). Please provide. For dx E11.9. takes 4 injections of insulin a day. Miscellaneo 2020-03 Yes [id number] Pt U [facility] 04-03 requesting ity of Supply Misc 00:00: a rx for [place] 00 Reli On 6 Medical mm x 31 Branch Gauge (15/64" x 0.25 mm). Please provide. For dx E11.9. takes 4 injections of insulin a day. Miscellaneo 2020-03 Yes [id number] Pt U [facility] 04-03 requesting ity of Supply Misc 00:00: a rx for [place] 00 Reli On 6 Medical mm x 31 Branch Gauge (15/64" x 0.25 mm). Please provide. For dx E11.9. takes 4 injections of insulin a day. Miscellaneo 2020-03 Yes [id number] Pt U [facility] 04-03 requesting ity of Supply Misc 00:00: a rx for [place] 00 Reli On 6 Medical mm x 31 Branch Gauge (15/64" x 0.25 mm). Please provide. For dx E11.9. takes 4 injections of insulin a day. Miscellaneo 2020-03 Yes [id number] Pt U [facility] 04-03 requesting ity of Supply Misc 00:00: a rx for [place] 00 Reli On 6 Medical mm x 31 Branch Gauge (15/64" x 0.25 mm). Please provide. For dx E11.9. takes 4 injections of insulin a day. Miscellaneo 2020-03 Yes [id number] Pt U [facility] 04-03 requesting ity of Supply Misc 00:00: a rx for [place] 00 Reli On 6 Medical mm x 31 Branch Gauge (15/64" x 0.25 mm). Please provide. For dx E11.9. takes 4 injections of insulin a day. Miscellaneo 2020-03 Yes [id number] Pt U [facility] 04-03 requesting ity of Supply Misc 00:00: a rx for [place] 00 Reli On 6 Medical mm x 31 Branch Gauge (15/64" x 0.25 mm). Please provide. For dx E11.9. takes 4 injections of insulin a day. Miscellaneo 2020-03 Yes [id number] Pt U [facility] 04-03 requesting ity of Supply Misc 00:00: a rx for [place] 00 Reli On 6 Medical mm x 31 Branch Gauge (15/64" x 0.25 mm). Please provide. For dx E11.9. takes 4 injections of insulin a day. Miscellaneo 2020-03 Yes [id number] Pt U [facility] 04-03 requesting ity of Supply Misc 00:00: a rx for [place] 00 Reli On 6 Medical mm x 31 Branch Gauge (15/64" x 0.25 mm). Please provide. For dx E11.9. takes 4 injections of insulin a day. Miscellaneo 2020-03 Yes [id number] Pt U [facility] 04-03 requesting ity of Supply Misc 00:00: a rx for [place] 00 Reli On 6 Medical mm x 31 Branch Gauge (15/64" x 0.25 mm). Please provide. For dx E11.9. takes 4 injections of insulin a day. Miscellaneo 2020-03 Yes [id number] Pt U [facility] 04-03 requesting ity of Supply Misc 00:00: a rx for [place] 00 Reli On 6 Medical mm x 31 Branch Gauge (15/64" x 0.25 mm). Please provide. For dx E11.9. takes 4 injections of insulin a day. Miscellaneo 2020-03 Yes [id number] Pt U [facility] 04-03 requesting ity of Supply Misc 00:00: a rx for [place] 00 Reli On 6 Medical mm x 31 Branch Gauge (15/64" x 0.25 mm). Please provide. For dx E11.9. takes 4 injections of insulin a day. Miscellaneo 2020-03 Yes [id number] Pt U [facility] 04-03 requesting ity of Supply Misc 00:00: a rx for [place] 00 Reli On 6 Medical mm x 31 Branch Gauge (15/64" x 0.25 mm). Please provide. For dx E11.9. takes 4 injections of insulin a day. Miscellaneo 2020-03 Yes [id number] Pt U [facility] 04-03 requesting ity of Supply Misc 00:00: a rx for [place] 00 Reli On 6 Medical mm x 31 Branch Gauge (15/64" x 0.25 mm). Please provide. For dx E11.9. takes 4 injections of insulin a day. Miscellaneo 2020-03 Yes [id number] Pt U [facility] 04-03 requesting ity of Supply Misc 00:00: a rx for [place] 00 Reli On 6 Medical mm x 31 Branch Gauge (15/64" x 0.25 mm). Please provide. For dx E11.9. takes 4 injections of insulin a day. Miscellaneo 2020-03 Yes [id number] Pt U [facility] 04-03 requesting ity of Supply Misc 00:00: a rx for [place] 00 Reli On 6 Medical mm x 31 Branch Gauge (15/64" x 0.25 mm). Please provide. For dx E11.9. takes 4 injections of insulin a day. Miscellaneo 2020-03 Yes [id number] Pt [facility] [employer] [facility] 04-03 requesting ity of Supply Misc 00:00: a rx for [place] 00 Reli On 6 Medical mm x 31 Branch Gauge (15/64" x 0.25 mm). Please provide. For dx E11.9. takes 4 injections of insulin a day. Miscellaneo 2020-03 Yes [id number] Pt U [facility] 04-03 requesting ity of Supply Misc 00:00: a rx for [place] 00 Reli On 6 Medical mm x 31 Branch Gauge (15/64" x 0.25 mm). Please provide. For dx E11.9. takes 4 injections of insulin a day. Miscellaneo 2020-03 Yes [id number] Pt U [facility] 04-03 requesting ity of Supply Misc 00:00: a rx for [place] 00 Reli On 6 Medical mm x 31 Branch Gauge (15/64" x 0.25 mm). Please provide. For dx E11.9. takes 4 injections of insulin a day. Miscellaneo 2020-03 Yes [id number] Pt U [facility] 04-03 requesting ity of Supply Misc 00:00: a rx for [place] 00 Reli On 6 Medical mm x 31 Branch Gauge (15/64" x 0.25 mm). Please provide. For dx E11.9. takes 4 injections of insulin a day. Miscellaneo 2020-03 Yes [id number] Pt U [employer] [facility] 04-03 requesting ity of Supply Misc 00:00: a rx for [place] 00 Reli On 6 Medical mm x 31 Branch Gauge (15/64" x 0.25 mm). Please provide. For dx E11.9. takes 4 injections of insulin a day. Miscellaneo 2020-03 Yes [id number] Pt U [facility] 04-03 requesting ity of Supply Misc 00:00: a rx for [place] 00 Reli On 6 Medical mm x 31 Branch Gauge (15/64" x 0.25 mm). Please provide. For dx E11.9. takes 4 injections of insulin a day. Miscellaneo 2020-03 Yes [id number] Pt U [facility] 04-03 requesting ity of Supply Misc 00:00: a rx for [place] 00 Reli On 6 Medical mm x 31 Branch Gauge (15/64" x 0.25 mm). Please provide. For dx E11.9. takes 4 injections of insulin a day. Miscellaneo 2020-03 Yes [id number] Pt U [facility] 04-03 requesting ity of Supply Misc 00:00: a rx for [place] 00 Reli On 6 Medical mm x 31 Branch Gauge (15/64" x 0.25 mm). Please provide. For dx E11.9. takes 4 injections of insulin a day. Miscellaneo 2020-03 Yes [id number] Pt U [facility] 04-03 requesting ity of Supply Misc 00:00: a rx for [place] 00 Reli On 6 Medical mm x 31 Branch Gauge (15/64" x 0.25 mm). Please provide. For dx E11.9. takes 4 injections of insulin a day. Miscellaneo 2020-03 Yes [id number] Pt U [facility] 04-03 requesting ity of Supply Misc 00:00: a rx for [place] 00 Reli On 6 Medical mm x 31 Branch Gauge (15/64" x 0.25 mm). Please provide. For dx E11.9. takes 4 injections of insulin a day. Miscellaneo 2020-03 Yes [id number] Pt U [facility] 04-03 requesting ity of Supply Misc 00:00: a rx for [place] 00 Reli On 6 Medical mm x 31 Branch Gauge (15/64" x 0.25 mm). Please provide. For dx E11.9. takes 4 injections of insulin a day. Miscellaneo 2020-03 Yes [id number] Pt U [facility] 04-03 requesting ity of Supply Misc 00:00: a rx for [place] 00 Reli On 6 Medical mm x 31 Branch Gauge (15/64" x 0.25 mm). Please provide. For dx E11.9. takes 4 injections of insulin a day. Miscellaneo 2020-03 Yes [id number] Pt U [facility] 04-03 requesting ity of Supply Misc 00:00: a rx for [place] 00 Reli On 6 Medical mm x 31 Branch Gauge (15/64" x 0.25 mm). Please provide. For dx E11.9. takes 4 injections of insulin a day. Miscellaneo 2020-03 Yes [id number] Pt U [facility] 04-03 requesting ity of Supply Misc 00:00: a rx for [place] 00 Reli On 6 Medical mm x 31 Branch Gauge (15/64" x 0.25 mm). Please provide. For dx E11.9. takes 4 injections of insulin a day. Miscellaneo 2020-03 Yes [id number] Pt U [facility] 04-03 requesting ity of Supply Misc 00:00: a rx for [place] 00 Reli On 6 Medical mm x 31 Branch Gauge (15/64" x 0.25 mm). Please provide. For dx E11.9. takes 4 injections of insulin a day. Miscellaneo 2020-03 Yes [id number] Pt U [facility] 04-03 requesting ity of Supply Misc 00:00: a rx for [place] 00 Reli On 6 Medical mm x 31 Branch Gauge (15/64" x 0.25 mm). Please provide. For dx E11.9. takes 4 injections of insulin a day. Miscellaneo 2020-03 Yes [id number] Pt U [facility] 04-03 requesting ity of Supply Misc 00:00: a rx for [place] 00 Reli On 6 Medical mm x 31 Branch Gauge (15/64" x 0.25 mm). Please provide. For dx E11.9. takes 4 injections of insulin a day. Miscellaneo 2020-03 Yes [id number] Pt U [facility] 04-03 requesting ity of Supply Misc 00:00: a rx for [place] 00 Reli On 6 Medical mm x 31 Branch Gauge (15/64" x 0.25 mm). Please provide. For dx E11.9. takes 4 injections of insulin a day. Miscellaneo 2020-03 Yes [id number] Pt U [facility] 04-03 requesting ity of Supply Misc 00:00: a rx for [place] 00 Reli On 6 Medical mm x 31 Branch Gauge (15/64" x 0.25 mm). Please provide. For dx E11.9. takes 4 injections of insulin a day. Miscellaneo 2020-03 Yes [id number] Pt [facility] 04[facility]03 requesting ity of Supply Misc 00:00: a rx for [place] 00 Reli On 6 Medical mm x 31 Branch Gauge (15/64" x 0.25 mm). Please provide. For dx E11.9. takes 4 injections of insulin a day. Miscellaneo 2020-03 Yes [id number] Pt U [facility] 04-03 requesting ity of Supply Misc 00:00: a rx for [place] 00 Reli On 6 Medical mm x 31 Branch Gauge (15/64" x 0.25 mm). Please provide. For dx E11.9. takes 4 injections of insulin a day. Miscellaneo 2020-03 Yes [id number] Pt U [facility] 04-03 requesting ity of Supply Misc 00:00: a rx for [place] 00 Reli On 6 Medical mm x 31 Branch Gauge (15/64" x 0.25 mm). Please provide. For dx E11.9. takes 4 injections of insulin a day. Miscellaneo 2020-03 Yes [id number] Pt U [facility] 04-03 requesting ity of Supply Misc 00:00: a rx for [place] 00 Reli On 6 Medical mm x 31 Branch Gauge (15/64" x 0.25 mm). Please provide. For dx E11.9. takes 4 injections of insulin a day. Miscellaneo 2020-03 Yes [id number] Pt U [facility] 04-03 requesting ity of Supply Misc 00:00: [place] 00 Reli On 6 Medical mm x 31 Branch Gauge (15/64" x 0.25 mm). Please provide. For dx E11.9. takes 4 injections of insulin a day. Miscellaneo 2020-03 Yes [id number] Pt U [facility] 04-03 requesting ity of Supply Misc [...] 7-10). Indication s: acute pain traMADoL 50 2020-0 Yes 4647 50mg Take 1 Univ ers mg tablet 9-24 tablet by ity o f 00:00: mouth [place] 00 every 6 Medical (six) Branch hours as needed for Pain (scale 7-10). Indication s: acute pain traMADoL 50 2020-0 Yes 4647 50mg Take 1 Univ ers mg tablet 9-24 tablet by ity o f 00:00: mouth [place] 00 every 6 Medical (six) Branch hours as needed for Pain (scale 7-10). Indication s: acute pain traMADoL 50 2020-0 Yes 4647 50mg Take 1 Univ ers mg tablet 9-24 tablet by ity o f 00:00: mouth [place] 00 every 6 Medical (six) Branch hours as needed for Pain (scale 7-10). Indication s: acute pain traMADoL 50 2020-0 Yes 4647 50mg Take 1 [facility] ers mg tablet 9-24 tablet by ity o f 00:00: mouth [place] 00 every 6 Medical (six) Branch hours as needed for Pain (scale 7-10). Indication s: acute pain traMADoL 50 2020-0 Yes 4647 50mg Take 1 Univ ers mg tablet 9-24 tablet by ity o f 00:00: mouth [place] 00 every 6 Medical (six) Branch hours as needed for Pain (scale 7-10). Indication s: acute pain traMADoL 50 2020-0 Yes 4647 50mg Take 1 [facility] ers mg tablet 9-24 tablet by ity o f 00:00: mouth [place] 00 every 6 Medical (six) Branch hours as needed for Pain (scale 7-10). Indication s: acute pain traMADoL 50 2020-0 Yes 4647 50mg Take 1 [facility] ers mg tablet 9-24 tablet by ity o f 00:00: mouth [place] 00 every 6 Medical (six) Branch hours as needed for Pain (scale 7-10). Indication s: acute pain traMADoL 50 2020-0 Yes 4647 50mg Take 1 [facility] ers mg tablet 9-24 tablet by ity o f 00:00: mouth [place] 00 every 6 Medical (six) Branch hours as needed for Pain (scale 7-10). Indication s: acute pain traMADoL 50 1-0 Yes 4647 50mg Take 1 Univ ers mg tablet 9-24 tablet by ity o f 00:00: mouth [place] 00 every 6 Medical (six) Branch hours as needed for Pain (scale 7-10). Indication s: acute pain traMADoL 50 2020-0 Yes 4647 50mg Take 1 [facility] ers mg tablet 9-24 tablet by ity o f 00:00: mouth [place] 00 every 6 Medical (six) Branch hours as needed for Pain (scale 7-10). Indication s: acute pain traMADoL 50 2020-0 Yes 4647 50mg Take 1 [facility] ers mg tablet 9-24 tablet by ity o f 00:00: mouth [place] 00 every 6 Medical (six) Branch hours as needed for Pain (scale 7-10). Indication s: acute pain traMADoL 50 2020-0 Yes 4647 50mg Take 1 Univ ers mg tablet 9-24 tablet by ity o f 00:00: mouth [place] 00 every 6 Medical (six) Branch hours as needed for Pain (scale 7-10). Indication s: acute pain traMADoL 50 2020-0 Yes 4647 50mg Take 1 [facility] ers mg tablet 9-24 tablet by ity o f 00:00: mouth [place] 00 every 6 Medical (six) Branch hours as needed for Pain (scale 7-10). Indication s: acute pain traMADoL 50 2020-0 Yes 4647 50mg Take 1 [facility] ers mg tablet 9-24 tablet by ity o f 00:00: mouth [place] 00 every 6 Medical (six) Branch hours as needed for Pain (scale 7-10). Indication s: acute pain traMADoL 50 2020-0 Yes 4647 50mg Take 1 [facility] ers mg tablet 9-24 tablet by ity o f 00:00: mouth [place] 00 every 6 Medical (six) Branch hours as needed for Pain (scale 7-10). Indication s: acute pain traMADoL 50 1-0 Yes 4647 50mg Take 1 [facility] ers mg tablet 9-24 tablet by ity o f 00:00: mouth [place] 00 every 6 Medical (six) Branch hours as needed for Pain (scale 7-10). Indication s: acute pain traMADoL 50 1-0 Yes 4647 50mg Take 1 [facility] ers mg tablet 9-24 tablet by ity o f 00:00: mouth [place] 00 every 6 Medical (six) Branch hours as needed for Pain (scale 7-10). Indication s: acute pain traMADoL 50 1-0 Yes 4647 50mg Take 1 [facility] ers mg tablet 9-24 tablet by ity o f 00:00: mouth [place] 00 every 6 Medical (six) Branch hours as needed for Pain (scale 7-10). Indication s: acute pain traMADoL 50 2020-0 Yes 4647 50mg Take 1 [facility] ers mg tablet 9-24 tablet by ity o f 00:00: mouth [place] 00 every 6 Medical (six) Branch hours as needed for Pain (scale 7-10). Indication s: acute pain traMADoL 50 2020-0 Yes 4647 50mg Take 1 [facility] ers mg tablet 9-24 tablet by ity o f 00:00: mouth [place] 00 every 6 Medical (six) Branch hours as needed for Pain (scale 7-10). Indication s: acute pain traMADoL 50 2020-0 Yes 4647 50mg Take 1 [facility] ers mg tablet 9-24 tablet by ity o f 00:00: mouth [place] 00 every 6 Medical (six) Branch hours as needed for Pain (scale 7-10). Indication s: acute pain traMADoL 50 2020-0 Yes 4647 50mg Take 1 [facility] ers mg tablet 9-24 tablet by ity o f 00:00: mouth [place] 00 every 6 Medical (six) Branch hours as needed for Pain (scale 7-10). Indication s: acute pain traMADoL 50 2020-0 Yes 4647 50mg Take 1 [facility] ers mg tablet 9-24 tablet by ity o f 00:00: mouth [place] 00 every 6 Medical (six) Branch hours as needed for Pain (scale 7-10). Indication s: acute pain traMADoL 50 1-0 Yes 4647 50mg Take 1 [facility] ers mg tablet 9-24 tablet by ity o f 00:00: mouth [place] 00 every 6 Medical (six) Branch hours as needed for Pain (scale 7-10). Indication s: acute pain traMADoL 50 1-0 Yes 4647 50mg Take 1 Univ ers mg tablet 9-24 tablet by ity o f 00:00: mouth [place] 00 every 6 Medical (six) Branch hours as needed for Pain (scale 7-10). Indication s: acute pain traMADoL 50 2021-0 Yes 4647 50mg Take 1 [facility] ers mg tablet 9-24 tablet by ity o f 00:00: mouth [place] 00 every 6 Medical (six) Branch hours as needed for Pain (scale 7-10). Indication s: acute pain traMADoL 50 2020-0 Yes 4647 50mg Take 1 [facility] ers mg tablet 9-24 tablet by ity o f 00:00: mouth [place] 00 every 6 Medical (six) Branch hours as needed for Pain (scale 7-10). Indication s: acute pain traMADoL 50 2020-0 Yes 4647 50mg Take 1 [facility] ers mg tablet 9-24 tablet by ity o f 00:00: mouth [place] 00 every 6 Medical (six) Branch hours as needed for Pain (scale 7-10). Indication s: acute pain traMADoL 50 2020-0 Yes 4647 50mg Take 1 [facility] ers mg tablet 9-24 tablet by ity o f 00:00: mouth [place] 00 every 6 Medical (six) Branch hours as needed for Pain (scale 7-10). Indication s: acute pain traMADoL 50 2020-0 Yes 4647 50mg Take 1 Univ ers mg tablet 9-24 tablet by ity o f 00:00: mouth [place] 00 every 6 Medical (six) Branch hours as needed for Pain (scale 7-10). Indication s: acute pain traMADoL 50 2020-0 Yes 4647 50mg Take 1 [facility] ers mg tablet 9-24 tablet by ity o f 00:00: mouth [place] 00 every 6 Medical (six) Branch hours as needed for Pain (scale 7-10). Indication s: acute pain traMADoL 50 2020-0 Yes 4647 50mg Take 1 Univ ers mg tablet 9-24 tablet by ity o f 00:00: mouth [place] 00 every 6 Medical (six) Branch hours as needed for Pain (scale 7-10). Indication s: acute pain traMADoL 50 2020-0 Yes 4647 50mg Take 1 [facility] ers mg tablet 9-24 tablet by ity o f 00:00: mouth [place] 00 every 6 Medical (six) Branch hours as needed for Pain (scale 7-10). Indication s: acute pain traMADoL 50 2020-0 3- No 4647 50mg Take 1 Uni vers mg tablet 9-24 - tablet by ity of 00:00: 00:00 mouth [place] 00 :00 every 6 Medical (six) Branch hours as needed for Pain (scale 7-10). Indication s: acute pain traMADoL 50 2020-0 2022- No 4647 50mg Take 1 Uni vers mg tablet 12-21 tablet by ity of 00:00: 00:00 mouth [place] 00 :00 every 6 Medical (six) Branch hours as [...] Branch METER) Misc daily DX: E11.8 lancets 2020-0 Yes Use [...] Branch METER) Misc daily DX: E11.8 lancets 2020-0 Yes Use [...] Branch METER) Misc daily DX: E11.8 lancets 2020-0 Yes Use [...] Branch METER) Misc daily DX: E11.8 lancets 2020-0 Yes Use [...] Branch METER) Misc daily DX: E11.8 lancets 2020-0 Yes Use [...] Branch METER) Misc daily DX: E11.8 lancets 2020-0 Yes Use [...] Branch METER) Misc daily DX: E11.8 lancets 2020-0 Yes Use [...] Branch METER) Misc daily DX: E11.8 lancets 2020-0 Yes Use [...] Branch METER) Misc daily DX: E11.8 lancets 2020-0 Yes Use [...] Branch METER) Misc daily DX: E11.8 lancets 2020-0 Yes Use [...] Branch METER) Misc daily DX: E11.8 lancets 2020-0 Yes Use [...] Branch METER) Misc daily DX: E11.8 lancets 2020-0 Yes Use [...] Branch METER) Misc daily DX: E11.8 lancets 2020-0 Yes Use [...] Branch METER) Misc daily DX: E11.8 lancets 2020-0 Yes Use [...] Branch METER) Misc daily DX: E11.8 lancets 2020-0 Yes Use [...] Branch METER) Misc daily DX: E11.8 lancets 2020-0 Yes Use [...] Branch METER) Misc daily DX: E11.8 lancets 2020-0 Yes Use [...] Branch METER) Misc daily DX: E11.8 lancets 2020-0 Yes Use [...] Branch METER) Misc daily DX: E11.8 lancets 2020-0 Yes Use [...] Branch METER) Misc daily DX: E11.8 lancets 2020-0 Yes Use [...] Branch METER) Misc daily DX: E11.8 lancets 2020-0 Yes Use [...] Branch METER) Misc daily DX: E11.8 lancets 2020-0 Yes Use [...] Branch METER) Misc daily DX: E11.8 lancets 2020-0 Yes Use [...] Branch METER) Misc daily DX: E11.8 lancets 2020-0 Yes Use [...] Branch METER) Misc daily DX: E11.8 lancets 2020-0 Yes Use [...] Branch METER) Misc daily DX: E11.8 lancets 2020-0 Yes Use [...] Branch METER) Misc daily DX: E11.8 lancets 2020-0 Yes Use [...] Branch METER) Misc daily DX: E11.8 lancets 2020-0 Yes Use [...] Branch METER) Misc daily DX: E11.8 lancets 2020-0 Yes Use [...] Branch METER) Misc daily DX: E11.8 lancets 2020-0 Yes Use [...] Branch METER) Misc daily DX: E11.8 lancets 2020-0 Yes Use [...] Branch METER) Misc daily DX: E11.8 lancets 2020-0 Yes Use [...] Branch METER) Misc daily DX: E11.8 lancets 2020-0 Yes Use [...] Branch METER) Misc daily DX: E11.8 lancets 2020-0 Yes Use [...] Branch METER) Misc daily DX: E11.8 lancets 2020-0 Yes Use [...] Branch METER) Misc daily DX: E11.8 lancets 2020-0 Yes Use [...] Branch METER) Misc daily DX: E11.8 lancets 2020-0 Yes Use [...] Branch METER) Misc daily DX: E11.8 lancets 2020-0 Yes Use [...] Branch METER) Misc daily DX: E11.8 lancets 2020-0 Yes Use [...] Branch METER) Misc daily DX: E11.8 lancets 2020-0 Yes Use [...] Branch METER) Misc daily DX: E11.8 lancets 2020-0 Yes Use [...] Branch METER) Misc daily DX: E11.8 lancets 2020-0 Yes Use [...] Branch METER) Misc daily DX: E11.8 lancets 2020-0 Yes Use [...] Branch METER) Misc daily DX: E11.8 lancets 2020-0 Yes Use [...] Branch METER) Misc daily DX: E11.8 lancets 2020-0 Yes Use [...] Branch METER) Misc daily DX: E11.8 lancets 2020-0 Yes Use [...] Branch METER) Misc daily DX: E11.8 lancets 2020-0 Yes Use [...] Branch METER) Misc daily DX: E11.8 lancets 2020-0 Yes Use [...] Branch METER) Misc daily DX: E11.8 lancets 2020-0 Yes Use [...] Branch METER) Misc daily DX: E11.8 lancets 2020-0 Yes Use [...] Branch METER) Misc daily DX: E11.8 lancets 2020-0 Yes Use [...] Branch METER) Misc daily DX: E11.8 lancets 2020-0 Yes Use [...] Branch METER) Misc daily DX: E11.8 lancets 2020-0 Yes Use [...] Branch METER) Misc daily DX: E11.8 lancets 2020-0 Yes Use [...] Branch METER) Misc daily DX: E11.8 lancets 2020-0 Yes Use [...] Branch METER) Misc daily DX: E11.8 lancets 2020-0 Yes Use [...] Branch METER) Misc daily DX: E11.8 lancets 2020-0 Yes Use [...] Branch METER) Misc daily DX: E11.8 lancets 2019-0 Yes Use as Univers (ULTRA THIN 2-05 [...] Branch METER) Misc daily DX: E11.8 lancets 2019-0 Yes Use as Univers (ULTRA THIN 2-05 [...] Branch METER) Misc daily DX: E11.8 lancets 2019-0 Yes Use as Univers (ULTRA THIN 2-05 directed ity of LANCETS) 30 00:00: TID DX: [place] as gauge Misc 00 E11.8 Medical Branch Betamethaso Yes Apply [...] Immunizations Ordered Filled Immunization Date Status Comments [facility] e Immunization Name Name TD Pres-Free 2022-09-12 Completed University o f 00:00:00 [facility] TD Pres-Free 2022-09-12 Completed University o f 00:00:00 [facility] TD Pres-Free 2022-09-12 Completed University o f 00:00:00 [facility] TD Pres-Free 2022-09-12 Completed University o f 00:00:00 [facility] TD Pres-Free 2022-09-12 Completed University o f 00:00:00 [facility] TD Pres-Free 2022-09-12 Completed University o f 00:00:00 [facility] TD Pres-Free 2022-09-12 Completed University o f 00:00:00 [facility] TD Pres-Free 2022-09-12 Completed University o f 00:00:00 [facility] TD Pres-Free 2022-09-12 Completed University o f 00:00:00 [facility] TD Pres-Free 2022-09-12 Completed University o f 00:00:00 [facility] TD Pres-Free 2022-09-12 Completed University o f 00:00:00 [facility] TD Pres-Free 2022-09-12 Completed University o f 00:00:00 [facility] TD Pres-Free 2022-09-12 Completed University o f 00:00:00 [facility] TD Pres-Free 2022-09-12 Completed University o f 00:00:00 [facility] TD Pres-Free 2022-09-12 Completed University o f 00:00:00 [facility] TD Pres-Free 2022-09-12 Completed University o f 00:00:00 [facility] TD Pres-Free 2022-09-12 Completed University o f 00:00:00 [facility] TD Pres-Free 2022-09-12 Completed University o f 00:00:00 [facility] TD Pres-Free 2022-09-12 Completed University o f 00:00:00 [facility] TD Pres-Free 2022-09-12 Completed University o f 00:00:00 [facility] TD Pres-Free 2022-09-12 Completed University o f 00:00:00 [facility] TD Pres-Free 2022-09-12 Completed University o f 00:00:00 [facility] TD Pres-Free 2022-09-12 Completed University o f 00:00:00 [facility] Influenza Virus 2021-12-23 Completed Universit y of Vaccine,quad 00:00:00 [place] [facility] Free Branch 65+ Influenza Virus 2021-12-23 Completed Universit y of Vaccine,quad 00:00:00 [place] [facility] Free Branch 65+ Influenza Virus 2021-12-23 Completed Universit y of Vaccine,quad 00:00:00 [place] [facility] Free Branch 65+ Influenza Virus 2021-12-23 Completed Universit y of Vaccine,quad 00:00:00 [place] [facility] Free Branch 65+ Influenza Virus 2021-12-23 Completed Universit y of Vaccine,quad 00:00:00 [place] [facility] Free Branch 65+ Influenza Virus 2021-12-23 Completed Universit y of Vaccine,quad 00:00:00 [place] [facility] Free Branch 65+ Influenza Virus 2021-12-23 Completed Universit y of Vaccine,quad 00:00:00 [place] [facility] Free Branch 65+ Influenza Virus 2021-12-23 Completed Universit y of Vaccine,quad 00:00:00 [place] [facility],preserve Free Branch 65+ Influenza Virus 2021-12-23 Completed Universit y of Vaccine,quad 00:00:00 [place] [facility] Free Branch 65+ Influenza Virus 2021-12-23 Completed Universit y of Vaccine,quad 00:00:00 [place] [facility] Free [facility] 65+ Influenza Virus 2021-12-23 Completed Universit y of Vaccine,quad 00:00:00 [place] [facility] Free Branch 65+ Influenza Virus 2021-12-23 Completed Universit y of Vaccine,quad 00:00:00 [place] [facility] Free Branch 65+ Influenza Virus 2021-12-23 Completed Universit y of Vaccine,quad 00:00:00 [place] [facility] Free Branch 65+ Influenza Virus 2021-12-23 Completed Universit y of Vaccine,quad 00:00:00 [place] [facility] Free Branch 65+ Influenza Virus 2021-12-23 Completed Universit y of Vaccine,quad 00:00:00 [place] [facility] Free Branch 65+ Influenza Virus 2021-12-23 Completed Universit y of Vaccine,quad 00:00:00 [place] [facility] Free Branch 65+ Influenza Virus 2021-12-23 Completed Universit y of Vaccine,quad 00:00:00 [place] [facility] Free Branch 65+ Influenza Virus 2021-12-23 Completed Universit y of Vaccine,quad 00:00:00 [place] [facility] Free Branch 65+ Influenza Virus 2021-12-23 Completed Universit y of Vaccine,quad 00:00:00 [place] [facility] Free Branch 65+ Influenza Virus 2021-12-23 Completed Universit y of Vaccine,quad 00:00:00 [place] [facility] Free Branch 65+ Influenza Virus 2021-12-23 Completed Universit y of Vaccine,quad 00:00:00 [place] [facility] Free Branch 65+ Influenza Virus 2021-12-23 Completed Universit y of Vaccine,quad 00:00:00 [place] [facility] Free Branch 65+ Influenza Virus 2021-12-23 Completed Universit y of Vaccine,quad 00:00:00 [place] [facility] Free Branch 65+ Influenza Virus 2021-12-23 Completed Universit y of Vaccine,quad 00:00:00 [place] [facility] Free Branch 65+ Influenza Virus 2021-12-23 Completed Universit y of Vaccine,quad 00:00:00 [place] [facility] Free Branch 65+ Influenza Virus 2021-12-23 Completed Universit y of Vaccine,quad 00:00:00 [place] [facility] Free Branch 65+ Influenza Virus 2021-12-23 Completed Universit y of Vaccine,quad 00:00:00 [place] [facility],preserve Free Branch 65+ Influenza Virus 2021-12-23 Completed Universit y of Vaccine,quad 00:00:00 [place] [facility],preserve Free Branch 65+ Influenza Virus 2021-12-23 Completed Universit y of Vaccine,quad 00:00:00 [place] [facility],preserve Free Branch 65+ Influenza Virus 2021-12-23 Completed Universit y of Vaccine,quad 00:00:00 [place] [facility],preserve Free Branch 65+ Influenza Virus 2021-12-23 Completed Universit y of Vaccine,quad 00:00:00 [place] [facility],preserve Free Branch 65+ Influenza Virus 2021-12-23 Completed Universit y of Vaccine,quad 00:00:00 [place] [facility],preserve Free Branch 65+ Influenza Virus 2021-12-23 Completed Universit y of Vaccine,quad 00:00:00 [place] [facility],preserve Free Branch 65+ Influenza Virus 2021-12-23 Completed Universit y of Vaccine,quad 00:00:00 [place] [facility],preserve Free Branch 65+ Influenza Virus 2021-12-23 Completed Universit y of Vaccine,quad 00:00:00 [place] [facility] Free Branch 65+ Influenza Virus 2021-12-23 Completed Universit y of Vaccine,quad 00:00:00 [place] [facility],preserve Free Branch 65+ Influenza Virus 2021-12-23 Completed Universit y of Vaccine,quad 00:00:00 [place] [facility],preserve Free Branch 65+ Influenza Virus 2021-12-23 Completed Universit y of Vaccine,quad 00:00:00 [place] [facility],preserve Free Branch 65+ Influenza Virus 2021-12-23 Completed Universit y of Vaccine,quad 00:00:00 [place] [facility] Free Branch 65+ Influenza Virus 2021-12-23 Completed Universit y of Vaccine,quad 00:00:00 [place] [facility] Free Branch 65+ Influenza Virus 2021-12-23 Completed Universit y of Vaccine,quad 00:00:00 [place] [facility] Free Branch 65+ Influenza Virus 2021-12-23 Completed Universit y of Vaccine,quad 00:00:00 [place] [facility] Free Branch 65+ Influenza Virus 2021-12-23 Completed Universit y of Vaccine,quad 00:00:00 [place] [facility] Free Branch 65+ Influenza Virus 2021-12-23 Completed Universit y of Vaccine,quad 00:00:00 [place] [facility] Free Branch 65+ Influenza Virus 2021-12-23 Completed Universit y of Vaccine,quad 00:00:00 [place] [facility],preserve Free Branch 65+ Influenza Virus 2021-12-23 Completed Universit y of Vaccine,quad 00:00:00 [place] [facility] Free Branch 65+ Influenza Virus 2021-12-23 Completed Universit y of Vaccine,quad 00:00:00 [place] [facility] Free Branch 65+ Influenza Virus 2021-12-23 Completed Universit y of Vaccine,quad 00:00:00 [place] [facility] Free Branch 65+ Influenza Virus 2021-12-23 Completed Universit y of Vaccine,quad 00:00:00 [place] [facility] Free Branch 65+ Influenza Virus 2021-12-23 Completed Universit y of Vaccine,quad 00:00:00 [place] [facility],preserve Free Branch 65+ Influenza Virus 2021-12-23 Completed Universit y of Vaccine,quad 00:00:00 [place] [facility] Free Branch 65+ Influenza Virus 2021-12-23 Completed Universit y of Vaccine,quad 00:00:00 [place] [facility] Free Branch 65+ Influenza Virus 2021-12-23 Completed Universit y of Vaccine,quad 00:00:00 [place] [facility] Free Branch 65+ Influenza Virus 2021-12-23 Completed Universit y of Vaccine,quad 00:00:00 [place] [facility] Free Branch 65+ Influenza Virus 2021-12-23 Completed Universit y of Vaccine,quad 00:00:00 [place] [facility] Free Branch 65+ Influenza Virus 2021-12-23 Completed Universit y of Vaccine,quad 00:00:00 [place] [facility] Free [facility] 65+ Pneumococcal 2021-08-07 Completed University o f Polysaccharide, [...] 2021-08-07 Completed University o f Polysaccharide, 00:00:00 [place] [facility] PPSV23 (PNEUMOVAX) Branch Pneumococcal 2021-08-07 [...] 00:00:00 [place] [facility] PPSV23 (PNEUMOVAX) Branch SARS-COV-2 COVID-19 2021-01-16 Completed Unive rsity of PFIZER VACCINE 00:00:00 [facility] Branch SARS-COV-2 COVID-19 2021-01-16 Completed Unive rsity of PFIZER VACCINE 00:00:00 [facility] Branch SARS-COV-2 COVID-19 2021-01-16 Completed Unive rsity of PFIZER VACCINE 00:00:00 [facility] Branch SARS-COV-2 COVID-19 2021-01-16 Completed Unive rsity of PFIZER VACCINE 00:00:00 [facility] Branch SARS-COV-2 COVID-19 2021-01-16 Completed Unive rsity of PFIZER VACCINE 00:00:00 [facility] Branch SARS-COV-2 COVID-19 2021-01-16 Completed Unive rsity of PFIZER VACCINE 00:00:00 [facility] Branch SARS-COV-2 COVID-19 2021-01-16 Completed Unive rsity of PFIZER VACCINE 00:00:00 [facility] Branch SARS-COV-2 COVID-19 2021-01-16 Completed Unive rsity of PFIZER VACCINE 00:00:00 [facility] Branch SARS-COV-2 COVID-19 2021-01-16 Completed Unive rsity of PFIZER VACCINE 00:00:00 [facility] Branch SARS-COV-2 COVID-19 2021-01-16 Completed Unive rsity of PFIZER VACCINE 00:00:00 [facility] Branch SARS-COV-2 COVID-19 2021-01-16 Completed Unive rsity of PFIZER VACCINE 00:00:00 [facility] Branch SARS-COV-2 COVID-19 2021-01-16 Completed Unive rsity of PFIZER VACCINE 00:00:00 [facility] Branch SARS-COV-2 COVID-19 2021-01-16 Completed Unive rsity of PFIZER VACCINE 00:00:00 [facility] Branch SARS-COV-2 COVID-19 2021-01-16 Completed Unive rsity of PFIZER VACCINE 00:00:00 [facility] Branch SARS-COV-2 COVID-19 2021-01-16 Completed Unive rsity of PFIZER VACCINE 00:00:00 [facility] Branch SARS-COV-2 COVID-19 2021-01-16 Completed Unive rsity of PFIZER VACCINE 00:00:00 [facility] Branch SARS-COV-2 COVID-19 2021-01-16 Completed Unive rsity of PFIZER VACCINE 00:00:00 [facility] Branch SARS-COV-2 COVID-19 2021-01-16 Completed Unive rsity of PFIZER VACCINE 00:00:00 [facility] Branch SARS-COV-2 COVID-19 2021-01-16 Completed Unive rsity of PFIZER VACCINE 00:00:00 [facility] Branch SARS-COV-2 COVID-19 2021-01-16 Completed Unive rsity of PFIZER VACCINE 00:00:00 [facility] Branch SARS-COV-2 COVID-19 2021-01-16 Completed Unive rsity of PFIZER VACCINE 00:00:00 [facility] Branch SARS-COV-2 COVID-19 2021-01-16 Completed Unive rsity of PFIZER VACCINE 00:00:00 [facility] Branch SARS-COV-2 COVID-19 2021-01-16 Completed Unive rsity of PFIZER VACCINE 00:00:00 [facility] Branch SARS-COV-2 COVID-19 2021-01-16 Completed Unive rsity of PFIZER VACCINE 00:00:00 [facility] Branch SARS-COV-2 COVID-19 2021-01-16 Completed Unive rsity of PFIZER VACCINE 00:00:00 [facility] Branch SARS-COV-2 COVID-19 2021-01-16 Completed Unive rsity of PFIZER VACCINE 00:00:00 [facility] Branch SARS-COV-2 COVID-19 2021-01-16 Completed Unive rsity of PFIZER VACCINE 00:00:00 [facility] Branch SARS-COV-2 COVID-19 2021-01-16 Completed Unive rsity of PFIZER VACCINE 00:00:00 [facility] Branch SARS-COV-2 COVID-19 2021-01-16 Completed Unive rsity of PFIZER VACCINE 00:00:00 [facility] Branch SARS-COV-2 COVID-19 2021-01-16 Completed Unive rsity of PFIZER VACCINE 00:00:00 [facility] Branch SARS-COV-2 COVID-19 2021-01-16 Completed Unive rsity of PFIZER VACCINE 00:00:00 [facility] Branch SARS-COV-2 COVID-19 2021-01-16 Completed Unive rsity of PFIZER VACCINE 00:00:00 [facility] Branch SARS-COV-2 COVID-19 2021-01-16 Completed [facility] PFIZER VACCINE 00:00:00 [facility] SARS-COV-2 COVID-19 2021-01-16 Completed [facility] PFIZER VACCINE 00:00:00 [facility] SARS-COV-2 COVID-19 2021-01-16 Completed [facility] PFIZER VACCINE 00:00:00 [facility] SARS-COV-2 COVID-19 2021-01-16 Completed [facility] PFIZER VACCINE 00:00:00 [facility] SARS-COV-2 COVID-19 2021-01-16 Completed [facility] PFIZER VACCINE 00:00:00 [facility] SARS-COV-2 COVID-19 2021-01-16 Completed [facility] PFIZER VACCINE 00:00:00 [facility] SARS-COV-2 COVID-19 2021-01-16 Completed [facility] PFIZER VACCINE 00:00:00 [facility] SARS-COV-2 COVID-19 2021-01-16 Completed [facility] PFIZER VACCINE 00:00:00 [facility] SARS-COV-2 COVID-19 2021-01-16 Completed [facility] PFIZER VACCINE 00:00:00 [facility] SARS-COV-2 COVID-19 2021-01-16 Completed [facility] PFIZER VACCINE 00:00:00 [facility] SARS-COV-2 COVID-19 2021-01-16 Completed [facility] PFIZER VACCINE 00:00:00 [facility] SARS-COV-2 COVID-19 2021-01-16 Completed [facility] PFIZER VACCINE 00:00:00 [facility] SARS-COV-2 COVID-19 2021-01-16 Completed [facility] PFIZER VACCINE 00:00:00 [facility] SARS-COV-2 COVID-19 2021-01-16 Completed [facility] PFIZER VACCINE 00:00:00 [facility] SARS-COV-2 COVID-19 2021-01-16 Completed [facility] PFIZER VACCINE 00:00:00 [facility] SARS-COV-2 COVID-19 2021-01-16 Completed [facility] PFIZER VACCINE 00:00:00 [facility] SARS-COV-2 COVID-19 2021-01-16 Completed [facility] PFIZER VACCINE 00:00:00 [facility] SARS-COV-2 COVID-19 2021-01-16 Completed [facility] PFIZER VACCINE 00:00:00 [facility] SARS-COV-2 COVID-19 2021-01-16 Completed [facility] PFIZER VACCINE 00:00:00 [facility] SARS-COV-2 COVID-19 2021-01-16 Completed [facility] PFIZER VACCINE 00:00:00 [facility] SARS-COV-2 COVID-19 2021-01-16 Completed [facility] PFIZER VACCINE 00:00:00 [facility] SARS-COV-2 COVID-19 2021-01-16 Completed [facility] PFIZER VACCINE 00:00:00 [facility] SARS-COV-2 COVID-19 2021-01-16 Completed [facility] PFIZER VACCINE 00:00:00 [facility] SARS-COV-2 COVID-19 2021-01-16 Completed [facility] PFIZER VACCINE 00:00:00 [facility] SARS-COV-2 COVID-19 2021-01-16 Completed [facility] PFIZER VACCINE 00:00:00 [facility] SARS-COV-2 COVID-19 2021-01-16 Completed [facility] PFIZER VACCINE 00:00:00 [facility] SARS-COV-2 COVID-19 2021-01-16 Completed [facility] PFIZER VACCINE 00:00:00 [facility] SARS-COV-2 COVID-19 2021-01-16 Completed [facility] PFIZER VACCINE 00:00:00 [facility] Influenza High Dose 2020-12-01 Completed [facility] 00:00:00 [facility] Influenza High Dose 2020-12-01 Completed [facility] 00:00:00 [facility] Influenza High Dose 2020-12-01 Completed [facility] 00:00:00 [facility] Influenza High Dose 2020-12-01 Completed [facility] 00:00:00 [facility] Influenza High Dose 2020-12-01 Completed [facility] 00:00:00 [facility] Influenza High Dose 2020-12-01 Completed [facility] 00:00:00 [facility] Influenza High Dose 2020-12-01 Completed [facility] 00:00:00 [facility] Influenza High Dose 2020-12-01 Completed [facility] 00:00:00 [facility] Influenza High Dose 2020-12-01 Completed [facility] 00:00:00 [facility] Influenza High Dose 2020-12-01 Completed [facility] 00:00:00 [facility] Influenza High Dose 2020-12-01 Completed [facility] 00:00:00 [facility] Influenza High Dose 2020-12-01 Completed [facility] 00:00:00 [facility] Influenza High Dose 2020-12-01 Completed [facility] 00:00:00 [facility] Influenza High Dose 2020-12-01 Completed [facility] 00:00:00 [facility] Influenza High Dose 2020-12-01 Completed [facility] 00:00:00 [facility] Influenza High Dose 2020-12-01 Completed [facility] 00:00:00 [facility] Influenza High Dose 2020-12-01 Completed [facility] 00:00:00 [facility] Influenza High Dose 2020-12-01 Completed [facility] 00:00:00 [facility] Influenza High Dose 2020-12-01 Completed [facility] 00:00:00 [facility] Influenza High Dose 2020-12-01 Completed [facility] 00:00:00 [facility] Influenza High Dose 2020-12-01 Completed [facility] 00:00:00 [facility] Influenza High Dose 2020-12-01 Completed [facility] 00:00:00 [facility] Influenza High Dose 2020-12-01 Completed [facility] 00:00:00 [facility] Influenza High Dose 2020-12-01 Completed [facility] 00:00:00 [facility] Influenza High Dose 2020-12-01 Completed [facility] 00:00:00 [facility] Influenza High Dose 2020-12-01 Completed [facility] 00:00:00 [facility] Influenza High Dose 2020-12-01 Completed [facility] 00:00:00 [facility] Influenza High Dose 2020-12-01 Completed [facility] 00:00:00 [facility] Influenza High Dose 2020-12-01 Completed [facility] 00:00:00 [facility] Influenza High Dose 2020-12-01 Completed [facility] 00:00:00 [facility] Influenza High Dose 2020-12-01 Completed [facility] 00:00:00 [facility] Influenza High Dose 2020-12-01 Completed [facility] 00:00:00 [facility] Influenza High Dose 2020-12-01 Completed [facility] 00:00:00 [facility] Influenza High Dose 2020-12-01 Completed [facility] 00:00:00 [facility] Influenza High Dose 2020-12-01 Completed [facility] 00:00:00 [facility] Influenza High Dose 2020-12-01 Completed [facility] 00:00:00 [facility] Influenza High Dose 2020-12-01 Completed [facility] 00:00:00 [facility] Influenza High Dose 2020-12-01 Completed [facility] 00:00:00 [facility] Influenza High Dose 2020-12-01 Completed [facility] 00:00:00 [facility] Influenza High Dose 2020-12-01 Completed [facility] 00:00:00 [facility] Influenza High Dose 2020-12-01 Completed [facility] 00:00:00 [facility] Influenza High Dose 2020-12-01 Completed [facility] 00:00:00 [facility] Influenza High Dose 2020-12-01 Completed [facility] 00:00:00 [facility] Influenza High Dose 2020-12-01 Completed [facility] 00:00:00 [facility] Influenza High Dose 2020-12-01 Completed [facility] 00:00:00 [facility] Influenza High Dose 2020-12-01 Completed [facility] 00:00:00 [facility] Influenza High Dose 2020-12-01 Completed [facility] 00:00:00 [facility] Influenza High Dose 2020-12-01 Completed [facility] 00:00:00 [facility] Influenza High Dose 2020-12-01 Completed [facility] 00:00:00 [facility] Influenza High Dose 2020-12-01 Completed [facility] 00:00:00 [facility] Influenza High Dose 2020-12-01 Completed [facility] 00:00:00 [facility] Influenza High Dose 2020-12-01 Completed [facility] 00:00:00 [facility] Influenza High Dose 2020-12-01 Completed [facility] 00:00:00 [facility] Influenza High Dose 2020-12-01 Completed [facility] 00:00:00 [facility] Influenza High Dose 2020-12-01 Completed [facility] 00:00:00 [facility] Influenza High Dose 2020-12-01 Completed [facility] 00:00:00 [facility] Influenza High Dose 2020-12-01 Completed [facility] 00:00:00 [facility] Influenza High Dose 2020-12-01 Completed [facility] 00:00:00 [facility] Influenza High Dose 2020-12-01 Completed [facility] 00:00:00 [facility] Influenza High Dose 2020-12-01 Completed [facility] 00:00:00 [facility] SARS-COV-2 COVID-19 2020-06-12 Completed [facility] PFIZER VACCINE 00:00:00 [facility] SARS-COV-2 COVID-19 2020-06-12 Completed [facility] PFIZER VACCINE 00:00:00 [facility] SARS-COV-2 COVID-19 2020-06-12 Completed [facility] PFIZER VACCINE 00:00:00 [facility] SARS-COV-2 COVID-19 2020-06-12 Completed [facility] PFIZER VACCINE 00:00:00 [facility] SARS-COV-2 COVID-19 2020-06-12 Completed [facility] PFIZER VACCINE 00:00:00 [facility] SARS-COV-2 COVID-19 2020-06-12 Completed [facility] PFIZER VACCINE 00:00:00 [facility] SARS-COV-2 COVID-19 2020-06-12 Completed [facility] PFIZER VACCINE 00:00:00 [facility] SARS-COV-2 COVID-19 2020-06-12 Completed [facility] PFIZER VACCINE 00:00:00 [facility] SARS-COV-2 COVID-19 2020-06-12 Completed [facility] PFIZER VACCINE 00:00:00 [facility] SARS-COV-2 COVID-19 2020-06-12 Completed [facility] PFIZER VACCINE 00:00:00 [facility] SARS-COV-2 COVID-19 2020-06-12 Completed [facility] PFIZER VACCINE 00:00:00 [facility] SARS-COV-2 COVID-19 2020-06-12 Completed [facility] PFIZER VACCINE 00:00:00 [facility] SARS-COV-2 COVID-19 2020-06-12 Completed [facility] PFIZER VACCINE 00:00:00 [facility] SARS-COV-2 COVID-19 2020-06-12 Completed [facility] PFIZER VACCINE 00:00:00 [facility] SARS-COV-2 COVID-19 2020-06-12 Completed [facility] PFIZER VACCINE 00:00:00 [facility] SARS-COV-2 COVID-19 2020-06-12 Completed [facility] PFIZER VACCINE 00:00:00 [facility] SARS-COV-2 COVID-19 2020-06-12 Completed [facility] PFIZER VACCINE 00:00:00 [facility] SARS-COV-2 COVID-19 2020-06-12 Completed [facility] PFIZER VACCINE 00:00:00 [facility] SARS-COV-2 COVID-19 2020-06-12 Completed [facility] PFIZER VACCINE 00:00:00 [facility] SARS-COV-2 COVID-19 2020-06-12 Completed [facility] PFIZER VACCINE 00:00:00 [facility] SARS-COV-2 COVID-19 2020-06-12 Completed [facility] PFIZER VACCINE 00:00:00 [facility] SARS-COV-2 COVID-19 2020-06-12 Completed [facility] PFIZER VACCINE 00:00:00 [facility] SARS-COV-2 COVID-19 2020-06-12 Completed [facility] PFIZER VACCINE 00:00:00 [facility] SARS-COV-2 COVID-19 2020-06-12 Completed [facility] PFIZER VACCINE 00:00:00 [facility] SARS-COV-2 COVID-19 2020-06-12 Completed [facility] PFIZER VACCINE 00:00:00 [facility] SARS-COV-2 COVID-19 2020-06-12 Completed [facility] PFIZER VACCINE 00:00:00 [facility] SARS-COV-2 COVID-19 2020-06-12 Completed [facility] PFIZER VACCINE 00:00:00 [facility] SARS-COV-2 COVID-19 2020-06-12 Completed [facility] PFIZER VACCINE 00:00:00 [facility] SARS-COV-2 COVID-19 2020-06-12 Completed [facility] PFIZER VACCINE 00:00:00 [facility] SARS-COV-2 COVID-19 2020-06-12 Completed [facility] PFIZER VACCINE 00:00:00 [facility] SARS-COV-2 COVID-19 2020-06-12 Completed [facility] PFIZER VACCINE 00:00:00 [facility] SARS-COV-2 COVID-19 2020-06-12 Completed [facility] PFIZER VACCINE 00:00:00 [facility] SARS-COV-2 COVID-19 2020-06-12 Completed [facility] PFIZER VACCINE 00:00:00 [facility] SARS-COV-2 COVID-19 2020-06-12 Completed [facility] PFIZER VACCINE 00:00:00 [facility] SARS-COV-2 COVID-19 2020-06-12 Completed [facility] PFIZER VACCINE 00:00:00 [facility] SARS-COV-2 COVID-19 2020-06-12 Completed [facility] PFIZER VACCINE 00:00:00 [facility] SARS-COV-2 COVID-19 2020-06-12 Completed [facility] PFIZER VACCINE 00:00:00 [facility] SARS-COV-2 COVID-19 2020-06-12 Completed [facility] PFIZER VACCINE 00:00:00 [facility] SARS-COV-2 COVID-19 2020-06-12 Completed [facility] PFIZER VACCINE 00:00:00 [facility] SARS-COV-2 COVID-19 2020-06-12 Completed [facility] PFIZER VACCINE 00:00:00 [facility] SARS-COV-2 COVID-19 2020-06-12 Completed [facility] PFIZER VACCINE 00:00:00 [facility] SARS-COV-2 COVID-19 2020-06-12 Completed [facility] PFIZER VACCINE 00:00:00 [facility] SARS-COV-2 COVID-19 2020-06-12 Completed [facility] PFIZER VACCINE 00:00:00 [facility] SARS-COV-2 COVID-19 2020-06-12 Completed [facility] PFIZER VACCINE 00:00:00 [facility] SARS-COV-2 COVID-19 2020-06-12 Completed [facility] PFIZER VACCINE 00:00:00 [facility] SARS-COV-2 COVID-19 2020-06-12 Completed [facility] PFIZER VACCINE 00:00:00 [facility] SARS-COV-2 COVID-19 2020-06-12 Completed [facility] PFIZER VACCINE 00:00:00 [facility] SARS-COV-2 COVID-19 2020-06-12 Completed [facility] PFIZER VACCINE 00:00:00 [facility] SARS-COV-2 COVID-19 2020-06-12 Completed [facility] PFIZER VACCINE 00:00:00 [facility] SARS-COV-2 COVID-19 2020-06-12 Completed [facility] PFIZER VACCINE 00:00:00 [facility] SARS-COV-2 COVID-19 2020-06-12 Completed [facility] PFIZER VACCINE 00:00:00 [facility] SARS-COV-2 COVID-19 2020-06-12 Completed [facility] PFIZER VACCINE 00:00:00 [facility] SARS-COV-2 COVID-19 2020-06-12 Completed [facility] PFIZER VACCINE 00:00:00 [facility] SARS-COV-2 COVID-19 2020-06-12 Completed [facility] PFIZER VACCINE 00:00:00 [facility] SARS-COV-2 COVID-19 2020-06-12 Completed [facility] PFIZER VACCINE 00:00:00 [facility] SARS-COV-2 COVID-19 2020-06-12 Completed [facility] PFIZER VACCINE 00:00:00 [facility] SARS-COV-2 COVID-19 2020-06-12 Completed [facility] PFIZER VACCINE 00:00:00 [facility] SARS-COV-2 COVID-19 2020-06-12 Completed [facility] PFIZER VACCINE 00:00:00 [facility] SARS-COV-2 COVID-19 2020-06-12 Completed [facility] PFIZER VACCINE 00:00:00 [facility] SARS-COV-2 COVID-19 2020-06-12 Completed [facility] PFIZER VACCINE 00:00:00 [facility] SARS-COV-2 COVID-19 2020-05-22 Completed [facility] PFIZER VACCINE 00:00:00 [facility] SARS-COV-2 COVID-19 2020-05-22 Completed [facility] PFIZER VACCINE 00:00:00 [facility] SARS-COV-2 COVID-19 2020-05-22 Completed [facility] PFIZER VACCINE 00:00:00 [facility] SARS-COV-2 COVID-19 2020-05-22 Completed [facility] PFIZER VACCINE 00:00:00 [facility] SARS-COV-2 COVID-19 2020-05-22 Completed [facility] PFIZER VACCINE 00:00:00 [facility] SARS-COV-2 COVID-19 2020-05-22 Completed [facility] PFIZER VACCINE 00:00:00 [facility] SARS-COV-2 COVID-19 2020-05-22 Completed [facility] PFIZER VACCINE 00:00:00 [facility] SARS-COV-2 COVID-19 2020-05-22 Completed [facility] PFIZER VACCINE 00:00:00 [facility] SARS-COV-2 COVID-19 2020-05-22 Completed [facility] PFIZER VACCINE 00:00:00 [facility] SARS-COV-2 COVID-19 2020-05-22 Completed [facility] PFIZER VACCINE 00:00:00 [facility] SARS-COV-2 COVID-19 2020-05-22 Completed [facility] PFIZER VACCINE 00:00:00 [facility] SARS-COV-2 COVID-19 2020-05-22 Completed [facility] PFIZER VACCINE 00:00:00 [facility] SARS-COV-2 COVID-19 2020-05-22 Completed [facility] PFIZER VACCINE 00:00:00 [facility] SARS-COV-2 COVID-19 2020-05-22 Completed [facility] PFIZER VACCINE 00:00:00 [facility] SARS-COV-2 COVID-19 2020-05-22 Completed [facility] PFIZER VACCINE 00:00:00 [facility] SARS-COV-2 COVID-19 2020-05-22 Completed [facility] PFIZER VACCINE 00:00:00 [facility] SARS-COV-2 COVID-19 2020-05-22 Completed [facility] PFIZER VACCINE 00:00:00 [facility] SARS-COV-2 COVID-19 2020-05-22 Completed [facility] PFIZER VACCINE 00:00:00 [facility] SARS-COV-2 COVID-19 2020-05-22 Completed [facility] PFIZER VACCINE 00:00:00 [facility] SARS-COV-2 COVID-19 2020-05-22 Completed [facility] PFIZER VACCINE 00:00:00 [facility] SARS-COV-2 COVID-19 2020-05-22 Completed [facility] PFIZER VACCINE 00:00:00 [facility] SARS-COV-2 COVID-19 2020-05-22 Completed [facility] PFIZER VACCINE 00:00:00 [facility] SARS-COV-2 COVID-19 2020-05-22 Completed [facility] PFIZER VACCINE 00:00:00 [facility] SARS-COV-2 COVID-19 2020-05-22 Completed [facility] PFIZER VACCINE 00:00:00 [facility] SARS-COV-2 COVID-19 2020-05-22 Completed [facility] PFIZER VACCINE 00:00:00 [facility] SARS-COV-2 COVID-19 2020-05-22 Completed [facility] PFIZER VACCINE 00:00:00 [facility] SARS-COV-2 COVID-19 2020-05-22 Completed [facility] PFIZER VACCINE 00:00:00 [facility] SARS-COV-2 COVID-19 2020-05-22 Completed [facility] PFIZER VACCINE 00:00:00 [facility] SARS-COV-2 COVID-19 2020-05-22 Completed [facility] PFIZER VACCINE 00:00:00 [facility] SARS-COV-2 COVID-19 2020-05-22 Completed [facility] PFIZER VACCINE 00:00:00 [facility] SARS-COV-2 COVID-19 2020-05-22 Completed [facility] PFIZER VACCINE 00:00:00 [facility] SARS-COV-2 COVID-19 2020-05-22 Completed [facility] PFIZER VACCINE 00:00:00 [facility] SARS-COV-2 COVID-19 2020-05-22 Completed [facility] PFIZER VACCINE 00:00:00 [facility] SARS-COV-2 COVID-19 2020-05-22 Completed [facility] PFIZER VACCINE 00:00:00 [facility] SARS-COV-2 COVID-19 2020-05-22 Completed [facility] PFIZER VACCINE 00:00:00 [facility] SARS-COV-2 COVID-19 2020-05-22 Completed [facility] PFIZER VACCINE 00:00:00 [facility] SARS-COV-2 COVID-19 2020-05-22 Completed [facility] PFIZER VACCINE 00:00:00 [facility] SARS-COV-2 COVID-19 2020-05-22 Completed [facility] PFIZER VACCINE 00:00:00 [facility] SARS-COV-2 COVID-19 2020-05-22 Completed [facility] PFIZER VACCINE 00:00:00 [facility] SARS-COV-2 COVID-19 2020-05-22 Completed [facility] PFIZER VACCINE 00:00:00 [facility] SARS-COV-2 COVID-19 2020-05-22 Completed [facility] PFIZER VACCINE 00:00:00 [facility] SARS-COV-2 COVID-19 2020-05-22 Completed [facility] PFIZER VACCINE 00:00:00 [facility] SARS-COV-2 COVID-19 2020-05-22 Completed [facility] PFIZER VACCINE 00:00:00 [facility] SARS-COV-2 COVID-19 2020-05-22 Completed [facility] PFIZER VACCINE 00:00:00 [facility] SARS-COV-2 COVID-19 2020-05-22 Completed [facility] PFIZER VACCINE 00:00:00 [facility] SARS-COV-2 COVID-19 2020-05-22 Completed [facility] PFIZER VACCINE 00:00:00 [facility] SARS-COV-2 COVID-19 2020-05-22 Completed [facility] PFIZER VACCINE 00:00:00 [facility] SARS-COV-2 COVID-19 2020-05-22 Completed [facility] PFIZER VACCINE 00:00:00 [facility] SARS-COV-2 COVID-19 2020-05-22 Completed [facility] PFIZER VACCINE 00:00:00 [facility] SARS-COV-2 COVID-19 2020-05-22 Completed [facility] PFIZER VACCINE 00:00:00 [facility] SARS-COV-2 COVID-19 2020-05-22 Completed [facility] PFIZER VACCINE 00:00:00 [facility] SARS-COV-2 COVID-19 2020-05-22 Completed [facility] PFIZER VACCINE 00:00:00 [facility] SARS-COV-2 COVID-19 2020-05-22 Completed [facility] PFIZER VACCINE 00:00:00 [facility] SARS-COV-2 COVID-19 2020-05-22 Completed [facility] PFIZER VACCINE 00:00:00 [facility] SARS-COV-2 COVID-19 2020-05-22 Completed [facility] PFIZER VACCINE 00:00:00 [facility] SARS-COV-2 COVID-19 2020-05-22 Completed [facility] PFIZER VACCINE 00:00:00 [facility] SARS-COV-2 COVID-19 2020-05-22 Completed [facility] PFIZER VACCINE 00:00:00 [facility] SARS-COV-2 COVID-19 2020-05-22 Completed [facility] PFIZER VACCINE 00:00:00 [facility] SARS-COV-2 COVID-19 2020-05-22 Completed [facility] PFIZER VACCINE 00:00:00 [facility] SARS-COV-2 COVID-19 2020-05-22 Completed [facility] PFIZER VACCINE 00:00:00 [facility] Influenza High Dose 2020-01-12 Completed [facility] [place] 00:00:00 [facility] Influenza High Dose 2020-01-12 Completed [facility] 00:00:00 [facility] Influenza High Dose 2020-01-12 Completed [facility] 00:00:00 [facility] Influenza High Dose 2020-01-12 Completed [facility] 00:00:00 [facility] Influenza High Dose 2020-01-12 Completed [facility] 00:00:00 [facility] Influenza High Dose 2020-01-12 Completed [facility] 00:00:00 [facility] Influenza High Dose 2020-01-12 Completed [facility] 00:00:00 [facility] Influenza High Dose 2020-01-12 Completed [facility] 00:00:00 [facility] Influenza High Dose 2020-01-12 Completed [facility] 00:00:00 [facility] Influenza High Dose 2020-01-12 Completed [facility] 00:00:00 [facility] Influenza High Dose 2020-01-12 Completed [facility] 00:00:00 [facility] Influenza High Dose 2020-01-12 Completed [facility] 00:00:00 [facility] Influenza High Dose 2020-01-12 Completed [facility] 00:00:00 [facility] Influenza High Dose 2020-01-12 Completed [facility] 00:00:00 [facility] Influenza High Dose 2020-01-12 Completed [facility] 00:00:00 [facility] Influenza High Dose 2020-01-12 Completed [facility] 00:00:00 [facility] Influenza High Dose 2020-01-12 Completed [facility] 00:00:00 [facility] Influenza High Dose 2020-01-12 Completed [facility] 00:00:00 [facility] Influenza High Dose 2020-01-12 Completed [facility] 00:00:00 [facility] Influenza High Dose 2020-01-12 Completed [facility] 00:00:00 [facility] Influenza High Dose 2020-01-12 Completed [facility] 00:00:00 [facility] Influenza High Dose 2020-01-12 Completed [facility] 00:00:00 [facility] Influenza High Dose 2020-01-12 Completed [facility] 00:00:00 [facility] Influenza High Dose 2020-01-12 Completed [facility] 00:00:00 [facility] Influenza High Dose 2020-01-12 Completed [facility] 00:00:00 [facility] Influenza High Dose 2020-01-12 Completed [facility] 00:00:00 [facility] Influenza High Dose 2020-01-12 Completed [facility] 00:00:00 [facility] Influenza High Dose 2020-01-12 Completed [facility] 00:00:00 [facility] Influenza High Dose 2020-01-12 Completed [facility] 00:00:00 [facility] Influenza High Dose 2020-01-12 Completed [facility] 00:00:00 [facility] Influenza High Dose 2020-01-12 Completed [facility] 00:00:00 [facility] Influenza High Dose 2020-01-12 Completed [facility] 00:00:00 [facility] Influenza High Dose 2020-01-12 Completed [facility] 00:00:00 [facility] Influenza High Dose 2020-01-12 Completed [facility] 00:00:00 [facility] Influenza High Dose 2020-01-12 Completed [facility] 00:00:00 [facility] Influenza High Dose 2020-01-12 Completed [facility] 00:00:00 [facility] Influenza High Dose 2020-01-12 Completed [facility] 00:00:00 [facility] Influenza High Dose 2020-01-12 Completed [facility] 00:00:00 [facility] Influenza High Dose 2020-01-12 Completed [facility] 00:00:00 [facility] Influenza High Dose 2020-01-12 Completed [facility] 00:00:00 [facility] Influenza High Dose 2020-01-12 Completed [facility] 00:00:00 [facility] Influenza High Dose 2020-01-12 Completed [facility] 00:00:00 [facility] Influenza High Dose 2020-01-12 Completed [facility] 00:00:00 [facility] Influenza High Dose 2020-01-12 Completed [facility] 00:00:00 [facility] Influenza High Dose 2020-01-12 Completed [facility] 00:00:00 [facility] Influenza High Dose 2020-01-12 Completed [facility] 00:00:00 [facility] Influenza High Dose 2020-01-12 Completed [facility] 00:00:00 [facility] Influenza High Dose 2020-01-12 Completed [facility] 00:00:00 [facility] Influenza High Dose 2020-01-12 Completed [facility] 00:00:00 [facility] Influenza High Dose 2020-01-12 Completed [facility] 00:00:00 [facility] Influenza High Dose 2020-01-12 Completed [facility] 00:00:00 [facility] Influenza High Dose 2020-01-12 Completed [facility] 00:00:00 [facility] Influenza High Dose 2020-01-12 Completed [facility] 00:00:00 [facility] Influenza High Dose 2020-01-12 Completed [facility] 00:00:00 [facility] Influenza High Dose 2020-01-12 Completed [facility] 00:00:00 [facility] Influenza High Dose 2020-01-12 Completed [facility] 00:00:00 [facility] Influenza High Dose 2020-01-12 Completed [facility] 00:00:00 [facility] Influenza High Dose 2020-01-12 Completed [facility] 00:00:00 [facility] Influenza High Dose 2020-01-12 Completed [facility] 00:00:00 [facility] Influenza High Dose 2020-01-12 Completed [facility] 00:00:00 [facility] TDAP 2019-02-23 Completed [facility] 00:00:00 [facility] Influenza High Dose 2019-02-23 Completed [facility] of 00:00:00 [facility] Pneumococcal 13 2019-02-23 Completed Universit y of Conjugate, PCV13 00:00:00 [facility] dical (Prevnar 13) Branch TDAP 2019-02-23 Completed [facility] of 00:00:00 [facility] Influenza High Dose 2019-02-23 Completed [facility] of 00:00:00 [facility] Pneumococcal 13 2019-02-23 Completed [facility]it y of Conjugate, PCV13 00:00:00 [facility] dical (Prevnar 13) Branch TDAP 2019-02-23 Completed [facility] of 00:00:00 [facility] Influenza High Dose 2019-02-23 Completed [facility] of 00:00:00 [facility] Pneumococcal 13 2019-02-23 Completed Universit y of Conjugate, PCV13 00:00:00 [facility] dical (Prevnar 13) Branch TDAP 2019-02-23 Completed [facility] of 00:00:00 [facility] Influenza High Dose 2019-02-23 Completed [facility] of 00:00:00 [facility] Pneumococcal 13 2019-02-23 Completed [facility]it y of Conjugate, PCV13 00:00:00 [facility] dical (Prevnar 13) Branch TDAP 2019-02-23 Completed [facility] of 00:00:00 [facility] Influenza High Dose 2019-02-23 Completed [facility] of 00:00:00 [facility] Pneumococcal 13 2019-02-23 Completed [facility]it y of Conjugate, PCV13 00:00:00 [facility] dical (Prevnar 13) Branch TDAP 2019-02-23 Completed [facility] of 00:00:00 [facility] Influenza High Dose 2019-02-23 Completed [facility] of 00:00:00 [facility] Pneumococcal 13 2019-02-23 Completed [facility]it y of Conjugate, PCV13 00:00:00 [facility] dical (Prevnar 13) Branch TDAP 2019-02-23 Completed University of 00:00:00 [facility] Influenza High Dose 2019-02-23 Completed [facility] of 00:00:00 [facility] Pneumococcal 13 2019-02-23 Completed Universit y of Conjugate, PCV13 00:00:00 [facility] dical (Prevnar 13) Branch TDAP 2019-02-23 Completed [facility] of 00:00:00 [facility] Influenza High Dose 2019-02-23 Completed [facility] of 00:00:00 [facility] Pneumococcal 13 2019-02-23 Completed [facility]it y of Conjugate, PCV13 00:00:00 [facility] dical (Prevnar 13) Branch TDAP 2019-02-23 Completed [facility] of 00:00:00 [facility] Influenza High Dose 2019-02-23 Completed [facility] of 00:00:00 [facility] Pneumococcal 13 2019-02-23 Completed Universit y of Conjugate, PCV13 00:00:00 [facility] dical (Prevnar 13) Branch TDAP 2019-02-23 Completed [facility] of 00:00:00 [facility] Influenza High Dose 2019-02-23 Completed [facility]ity of 00:00:00 [facility] Pneumococcal 13 2019-02-23 Completed Universit y of Conjugate, PCV13 00:00:00 [facility] dical (Prevnar 13) Branch TDAP 2019-02-23 Completed University of 00:00:00 [facility] Influenza High Dose 2019-02-23 Completed [facility]ity of 00:00:00 [facility] Pneumococcal 13 2019-02-23 Completed Universit y of Conjugate, PCV13 00:00:00 [facility] dical (Prevnar 13) Branch TDAP 2019-02-23 Completed [facility] of 00:00:00 [facility] Influenza High Dose 2019-02-23 Completed [facility]ity of 00:00:00 [facility] Pneumococcal 13 2019-02-23 Completed Universit y of Conjugate, PCV13 00:00:00 [facility] dical (Prevnar 13) Branch TDAP 2019-02-23 Completed [facility] of 00:00:00 [facility] Influenza High Dose 2019-02-23 Completed [facility]ity of 00:00:00 [facility] Pneumococcal 13 2019-02-23 Completed Universit y of Conjugate, PCV13 00:00:00 [facility] dical (Prevnar 13) Branch TDAP 2019-02-23 Completed [facility] of 00:00:00 [facility] Influenza High Dose 2019-02-23 Completed [facility] of 00:00:00 [facility] Pneumococcal 13 2019-02-23 Completed [facility] Conjugate, PCV13 00:00:00 [facility] (Prevnar 13) [facility] TDAP 2019-02-23 Completed [facility] of 00:00:00 [facility] Influenza High Dose 2019-02-23 Completed [facility]ive [facility]ity of 00:00:00 [facility] Pneumococcal 13 2019-02-23 Completed Universit y of Conjugate, PCV13 00:00:00 [facility] dical (Prevnar 13) Branch TDAP 2019-02-23 Completed University of 00:00:00 [facility] Influenza High Dose 2019-02-23 Completed [facility]ive [facility]ity of 00:00:00 [facility] Pneumococcal 13 2019-02-23 Completed [facility]it y of Conjugate, PCV13 00:00:00 [facility] (Prevnar 13) Branch TDAP 2019-02-23 Completed [facility] of 00:00:00 [facility] Influenza High Dose 2019-02-23 Completed [facility]ity of 00:00:00 [facility] Pneumococcal 13 2019-02-23 Completed [facility]it y of Conjugate, PCV13 00:00:00 [facility] dical (Prevnar 13) Branch TDAP 2019-02-23 Completed University of 00:00:00 [facility] Influenza High Dose 2019-02-23 Completed [facility]ive [facility]ity of 00:00:00 [facility] Pneumococcal 13 2019-02-23 Completed [facility]it y of Conjugate, PCV13 00:00:00 [facility] dical (Prevnar 13) Branch TDAP 2019-02-23 Completed [facility] of 00:00:00 [facility] Influenza High Dose 2019-02-23 Completed [facility]ive [facility]ity of 00:00:00 [facility] Pneumococcal 13 2019-02-23 Completed Universit y of Conjugate, PCV13 00:00:00 [facility] dical (Prevnar 13) Branch TDAP 2019-02-23 Completed [facility] of 00:00:00 [facility] Influenza High Dose 2019-02-23 Completed [facility]ive [facility]ity of 00:00:00 [facility] Pneumococcal 13 2019-02-23 Completed Universit y of Conjugate, PCV13 00:00:00 [facility] dical (Prevnar 13) Branch TDAP 2019-02-23 Completed [facility] of 00:00:00 [facility] Influenza High Dose 2019-02-23 Completed [facility]ity of 00:00:00 [facility] Pneumococcal 13 2019-02-23 Completed [facility] of Conjugate, PCV13 00:00:00 [facility] (Prevnar 13) Branch TDAP 2019-02-23 Completed [facility] of 00:00:00 [facility] Influenza High Dose 2019-02-23 Completed [facility]ive [facility]ity of 00:00:00 [facility] Pneumococcal 13 2019-02-23 Completed Universit y of Conjugate, PCV13 00:00:00 [facility] dical (Prevnar 13) Branch TDAP 2019-02-23 Completed [facility] of 00:00:00 [facility] Influenza High Dose 2019-02-23 Completed [facility]ity of 00:00:00 [facility] Pneumococcal 13 2019-02-23 Completed Universit y of Conjugate, PCV13 00:00:00 [facility] dical (Prevnar 13) Branch TDAP 2019-02-23 Completed [facility] of 00:00:00 [facility] Influenza High Dose 2019-02-23 Completed [facility]ive [facility]ity of 00:00:00 [facility] Pneumococcal 13 2019-02-23 Completed Universit y of Conjugate, PCV13 00:00:00 [facility] dical (Prevnar 13) Branch TDAP 2019-02-23 Completed [facility] of 00:00:00 [facility] Influenza High Dose 2019-02-23 Completed [facility]ive rsity of 00:00:00 [facility] Pneumococcal 13 2019-02-23 Completed [facility]it y of Conjugate, PCV13 00:00:00 [facility] dical (Prevnar 13) Branch TDAP 2019-02-23 Completed University of 00:00:00 [facility] Influenza High Dose 2019-02-23 Completed [facility]ive [facility]ity of 00:00:00 [facility] Pneumococcal 13 2019-02-23 Completed Universit y of Conjugate, PCV13 00:00:00 [facility] dical (Prevnar 13) Branch TDAP 2019-02-23 Completed [facility] of 00:00:00 [facility] Influenza High Dose 2019-02-23 Completed [facility]ive [facility]ity of 00:00:00 [facility] Pneumococcal 13 2019-02-23 Completed Universit y of Conjugate, PCV13 00:00:00 [facility] dical (Prevnar 13) Branch TDAP 2019-02-23 Completed University of 00:00:00 [facility] Influenza High Dose 2019-02-23 Completed [facility]ive [facility]ity of 00:00:00 [facility] Pneumococcal 13 2019-02-23 Completed [facility] of Conjugate, PCV13 00:00:00 [place] [facility] (Prevnar 13) [facility] TDAP 2019-02-23 Completed [facility] of 00:00:00 [facility] Influenza High Dose 2019-02-23 Completed [facility]ity of 00:00:00 [facility] Pneumococcal 13 2019-02-23 Completed Universit y of Conjugate, PCV13 00:00:00 [facility] dical (Prevnar 13) Branch TDAP 2019-02-23 Completed [facility] of 00:00:00 [facility] Influenza High Dose 2019-02-23 Completed [facility]ity of 00:00:00 [facility] Pneumococcal 13 2019-02-23 Completed Universit y of Conjugate, PCV13 00:00:00 [facility] dical (Prevnar 13) Branch TDAP 2019-02-23 Completed University of 00:00:00 [facility] Influenza High Dose 2019-02-23 Completed [facility]ive [facility]ity of 00:00:00 [facility] Pneumococcal 13 2019-02-23 Completed Universit y of Conjugate, PCV13 00:00:00 [facility] dical (Prevnar 13) Branch TDAP 2019-02-23 Completed [facility] of 00:00:00 [facility] Influenza High Dose 2019-02-23 Completed [facility] of 00:00:00 [facility] Pneumococcal 13 2019-02-23 Completed Universit y of Conjugate, PCV13 00:00:00 [facility] dical (Prevnar 13) Branch TDAP 2019-02-23 Completed [facility] of 00:00:00 [facility] Influenza High Dose 2019-02-23 Completed [facility]ity of 00:00:00 [facility] Pneumococcal 13 2019-02-23 Completed [facility]it y of Conjugate, PCV13 00:00:00 [facility] dical (Prevnar 13) Branch TDAP 2019-02-23 Completed [facility] of 00:00:00 [facility] Influenza High Dose 2019-02-23 Completed [facility]ity of 00:00:00 [facility] Pneumococcal 13 2019-02-23 Completed [facility]it y of Conjugate, PCV13 00:00:00 [facility] dical (Prevnar 13) Branch TDAP 2019-02-23 Completed [facility] of 00:00:00 [facility] Influenza High Dose 2019-02-23 Completed [facility]ity of 00:00:00 [facility] Pneumococcal 13 2019-02-23 Completed [facility]it y of Conjugate, PCV13 00:00:00 [facility] dical (Prevnar 13) Branch TDAP 2019-02-23 Completed [facility] of 00:00:00 [facility] Influenza High Dose 2019-02-23 Completed [facility]ity of 00:00:00 [facility] Pneumococcal 13 2019-02-23 Completed [facility]it y of Conjugate, PCV13 00:00:00 [facility] dical (Prevnar 13) Branch TDAP 2019-02-23 Completed [facility] of 00:00:00 [facility] Influenza High Dose 2019-02-23 Completed [facility]ity of 00:00:00 [facility] Pneumococcal 13 2019-02-23 Completed [facility]it y of Conjugate, PCV13 00:00:00 [facility] dical (Prevnar 13) Branch TDAP 2019-02-23 Completed [facility] of 00:00:00 [facility] Influenza High Dose 2019-02-23 Completed [facility]ity of 00:00:00 [facility] Pneumococcal 13 2019-02-23 Completed [facility]it y of Conjugate, PCV13 00:00:00 [facility] dical (Prevnar 13) Branch TDAP 2019-02-23 Completed [facility] of 00:00:00 [facility] Influenza High Dose 2019-02-23 Completed [facility] of 00:00:00 [facility] Pneumococcal 13 2019-02-23 Completed [facility]it y of Conjugate, PCV13 00:00:00 [facility] dical (Prevnar 13) Branch TDAP 2019-02-23 Completed [facility] of 00:00:00 [facility] Influenza High Dose 2019-02-23 Completed [facility]ity of 00:00:00 [facility] Pneumococcal 13 2019-02-23 Completed [facility]it y of Conjugate, PCV13 00:00:00 [facility] dical (Prevnar 13) Branch TDAP 2019-02-23 Completed [facility] of 00:00:00 [facility] Influenza High Dose 2019-02-23 Completed [facility]ive [facility]ity of 00:00:00 [facility] Pneumococcal 13 2019-02-23 Completed [facility]it y of Conjugate, PCV13 00:00:00 [facility] dical (Prevnar 13) Branch TDAP 2019-02-23 Completed [facility] of 00:00:00 [facility] Influenza High Dose 2019-02-23 Completed [facility]ity of 00:00:00 [facility] Pneumococcal 13 2019-02-23 Completed [facility]it y of Conjugate, PCV13 00:00:00 [facility] dical (Prevnar 13) Branch TD 2019-02-23 Completed [facility] of 00:00:00 [facility] Influenza High Dose 2019-02-23 Completed [facility]ive [facility]ity of 00:00:00 [facility] Pneumococcal 13 2019-02-23 Completed Universit y of Conjugate, PCV13 00:00:00 [facility] dical (Prevnar 13) Branch TDAP 2019-02-23 Completed [facility] of 00:00:00 [facility] Influenza High Dose 2019-02-23 Completed [facility]ity of 00:00:00 [facility] Pneumococcal 13 2019-02-23 Completed [facility]it y of Conjugate, PCV13 00:00:00 [facility] dical (Prevnar 13) Branch TDAP 2019-02-23 Completed [facility] of 00:00:00 [facility] Influenza High Dose 2019-02-23 Completed [facility]ity of 00:00:00 [facility] Pneumococcal 13 2019-02-23 Completed [facility]it y of Conjugate, PCV13 00:00:00 [facility] dical (Prevnar 13) Branch TDAP 2019-02-23 Completed [facility] of 00:00:00 [facility] Influenza High Dose 2019-02-23 Completed [facility]ity of 00:00:00 [facility] Pneumococcal 13 2019-02-23 Completed [facility]it y of Conjugate, PCV13 00:00:00 [facility] dical (Prevnar 13) Branch TDAP 2019-02-23 Completed [facility] of 00:00:00 [facility] Influenza High Dose 2019-02-23 Completed [facility]ity of 00:00:00 [facility] Pneumococcal 13 2019-02-23 Completed [facility]it y of Conjugate, PCV13 00:00:00 [facility] dical (Prevnar 13) Branch TDAP 2019-02-23 Completed [facility] of 00:00:00 [facility] Influenza High Dose 2019-02-23 Completed [facility]ity of 00:00:00 [facility] Pneumococcal 13 2019-02-23 Completed [facility]it y of Conjugate, PCV13 00:00:00 [facility] dical (Prevnar 13) Branch TDAP 2019-02-23 Completed [facility] of 00:00:00 [facility] Influenza High Dose 2019-02-23 Completed [facility]ity of 00:00:00 [facility] Pneumococcal 13 2019-02-23 Completed [facility]it y of Conjugate, PCV13 00:00:00 [facility] dical (Prevnar 13) Branch TDAP 2019-02-23 Completed [facility] of 00:00:00 [facility] Influenza High Dose 2019-02-23 Completed [facility]ity of 00:00:00 [facility] Pneumococcal 13 2019-02-23 Completed [facility]it y of Conjugate, PCV13 00:00:00 [facility] dical (Prevnar 13) Branch TDAP 2019-02-23 Completed [facility] of 00:00:00 [facility] Influenza High Dose 2019-02-23 Completed [facility]ity of 00:00:00 [facility] Pneumococcal 13 2019-02-23 Completed [facility]it y of Conjugate, PCV13 00:00:00 [facility] dical (Prevnar 13) Branch TDAP 2019-02-23 Completed [facility] of 00:00:00 [facility] Influenza High Dose 2019-02-23 Completed [facility]ity of 00:00:00 [facility] Pneumococcal 13 2019-02-23 Completed [facility]it y of Conjugate, PCV13 00:00:00 [facility] dical (Prevnar 13) Branch TDAP 2019-02-23 Completed [facility] of 00:00:00 [facility] Influenza High Dose 2019-02-23 Completed [facility]ity of 00:00:00 [facility] Pneumococcal 13 2019-02-23 Completed [facility]it y of Conjugate, PCV13 00:00:00 [facility] dical (Prevnar 13) Branch TDAP 2019-02-23 Completed [facility] of 00:00:00 [facility] Influenza High Dose 2019-02-23 Completed [facility]ity of 00:00:00 [facility] Pneumococcal 13 2019-02-23 Completed [facility]it y of Conjugate, PCV13 00:00:00 [facility] dical (Prevnar 13) Branch TDAP 2019-02-23 Completed [facility] of 00:00:00 [facility] Influenza High Dose 2019-02-23 Completed [facility]ive rsity of 00:00:00 [facility] Pneumococcal 13 2019-02-23 Completed Universit y of Conjugate, PCV13 00:00:00 [facility] dical (Prevnar 13) Branch TDAP 2019-02-23 Completed [facility] of 00:00:00 [facility] Influenza High Dose 2019-02-23 Completed [facility]ity of 00:00:00 [facility] Pneumococcal 13 2019-02-23 Completed [facility]it y of Conjugate, PCV13 00:00:00 [facility] dical (Prevnar 13) Branch TDAP 2019-02-23 Completed [facility] of 00:00:00 [facility] Influenza High Dose 2019-02-23 Completed [facility]ity of 00:00:00 [facility] Pneumococcal 13 2019-02-23 Completed [facility]it y of Conjugate, PCV13 00:00:00 [facility] dical (Prevnar 13) Branch TDAP 2019-02-23 Completed [facility] of 00:00:00 [facility] Influenza High Dose 2019-02-23 Completed [facility] rsity of 00:00:00 [facility] Pneumococcal 13 2019-02-23 Completed Universit y of Conjugate, PCV13 00:00:00 [facility] dical (Prevnar 13) Branch AP 2019-02-23 Completed [facility] of 00:00:00 [facility] Influenza High Dose 2019-02-23 Completed [facility]ity of 00:00:00 [facility] Pneumococcal 13 2019-02-23 Completed [facility]it y of Conjugate, PCV13 00:00:00 [facility] dical (Prevnar 13) Branch [facility] 2019-02-23 Completed [facility] of 00:00:00 [facility] Influenza High Dose 2019-02-23 Completed [facility]ive rsity of 00:00:00 [facility] Pneumococcal 13 2019-02-23 Completed Universit y of Conjugate, PCV13 00:00:00 [facility] dical (Prevnar 13) [place] Vital Signs Vital Name Observation Time Observation Value Comments Source Systolic blood 2022-10-03 21:00:00 129 mm[Hg] Univer sity of pressure [facility] Diastolic blood 2022-10-03 21:00:00 73 mm[Hg] Unive rsity of pressure [facility] Heart rate 2022-10-03 21:00:00 92 /min [facility] Body temperature 2022-10-03 21:00:00 36.44 Vee [facility] Respiratory rate 2022-10-03 21:00:00 18 /min [facility] Body height 2022-10-03 21:00:00 175.3 cm [facility] Body weight 2022-10-03 21:00:00 91.899 kg [facility] BMI 2022-10-03 21:00:00 29.92 kg/m2 [facility] Oxygen saturation in 2022-10-03 21:00:00 97 /min [facility] Arterial blood by [facility] [facility] Pulse oximetry Branch Systolic blood 2022-09-30 01:00:00 145 mm[Hg] [facility] Diastolic blood 2022-09-30 01:00:00 54 mm[Hg] [facility] Heart rate 2022-09-30 01:00:00 80 /min [facility] Respiratory rate 2022-09-30 01:00:00 18 /min [facility] Oxygen saturation in 2022-09-30 01:00:00 98 /min University of Arterial blood by [facility] Pulse oximetry Branch Body temperature 2022-09-29 23:43:18 37.11 Vee [facility] Body height 2022-09-29 22:52:00 175.3 cm [facility] Body weight 2022-09-29 22:52:00 94.348 kg [facility] BMI 2022-09-29 22:52:00 30.72 kg/m2 [facility] Systolic blood 2022-09-24 19:43:00 104 mm[Hg] [facility] Diastolic blood 2022-09-24 19:43:00 69 mm[Hg] [facility] Heart rate 2022-09-24 19:43:00 89 /min [facility] Body temperature 2022-09-24 19:40:00 36.67 Vee [facility] Body height 2022-09-24 19:40:00 172.7 cm [facility] Body weight 2022-09-24 19:40:00 94.53 kg [facility] BMI 2022-09-24 19:40:00 31.69 kg/m2 [facility] Oxygen saturation in 2022-09-24 19:40:00 98 /min [facility] Arterial blood by [facility] Pulse oximetry Branch Systolic blood 2022-09-12 08:43:43 167 mm[Hg] [facility] Diastolic blood 2022-09-12 08:43:43 77 mm[Hg] [facility] Heart rate 2022-09-12 08:43:43 84 /min [facility] Body temperature 2022-09-12 08:43:43 36.83 Vee [facility] Respiratory rate 2022-09-12 08:43:43 18 /min [facility] Oxygen saturation in 2022-09-12 08:43:43 97 /min [facility] Arterial blood by [facility] Pulse oximetry Branch Body height 2022-09-12 02:33:00 172.7 cm [facility] Body weight 2022-09-12 02:33:00 93.441 kg [facility] BMI 2022-09-12 02:33:00 31.32 kg/m2 [facility] Systolic blood 2022-08-28 15:55:00 113 mm[Hg] [facility] Diastolic blood 2022-08-28 15:55:00 74 mm[Hg] [facility] Heart rate 2022-08-28 15:53:00 93 /min [facility] Body temperature 2022-08-28 15:53:00 36.5 Vee [facility] Respiratory rate 2022-08-28 15:53:00 18 /min [facility] Body height 2022-08-28 15:53:00 175.3 cm [facility] Body weight 2022-08-28 15:53:00 93.577 kg [facility] BMI 2022-08-28 15:53:00 30.47 kg/m2 [facility] Oxygen saturation in 2022-08-28 15:53:00 99 /min [facility] Arterial blood by [facility] Pulse oximetry Branch Systolic blood 2022-05-12 16:16:00 136 mm[Hg] [facility] Diastolic blood 2022-05-12 16:16:00 72 mm[Hg] [facility] Heart rate 2022-05-12 16:16:00 91 /min [facility] Body temperature 2022-05-12 16:16:00 36.78 Vee [facility] Respiratory rate 2022-05-12 16:16:00 16 /min [facility] Body height 2022-05-12 16:16:00 175.3 cm [facility] Body weight 2022-05-12 16:16:00 95.255 kg [facility] BMI 2022-05-12 16:16:00 31.01 kg/m2 [facility] Oxygen saturation in 2022-05-12 16:16:00 98 /min [facility] Arterial blood by [facility] Pulse oximetry Branch Systolic blood 2022-02-18 20:32:00 126 mm[Hg] [facility] Diastolic blood 2022-02-18 20:32:00 73 mm[Hg] [facility] Heart rate 2022-02-18 20:32:00 93 /min [facility] Body temperature 2022-02-18 20:32:00 36.61 Vee [facility] Respiratory rate 2022-02-18 20:32:00 18 /min [facility] Body height 2022-02-18 20:32:00 175.3 cm [facility] Body weight 2022-02-18 20:32:00 97.841 kg [facility] BMI 2022-02-18 20:32:00 31.85 kg/m2 [facility] Oxygen saturation in 2022-02-18 20:32:00 96 /min [facility] Arterial blood by [facility] Pulse oximetry Branch Systolic blood 2022-02-14 17:39:00 139 mm[Hg] [facility] Diastolic blood 2022-02-14 17:39:00 79 mm[Hg] [facility] Heart rate 2022-02-14 17:39:00 90 /min [facility] Body temperature 2022-02-14 17:39:00 36.5 Vee [facility] Respiratory rate 2022-02-14 17:39:00 18 /min [facility] Body height 2022-02-14 17:39:00 175.3 cm [facility] Body weight 2022-02-14 17:39:00 94.348 kg [facility] BMI 2022-02-14 17:39:00 30.72 kg/m2 [facility] Oxygen saturation in 2022-02-14 17:39:00 99 /min [facility] Arterial blood by [place] [facility] [facility] Pulse oximetry Branch Systolic blood 2022-01-27 21:02:00 164 mm[Hg] [facility] Diastolic blood 2022-01-27 21:02:00 84 mm[Hg] [facility] Heart rate 2022-01-27 21:02:00 94 /min [facility] Body temperature 2022-01-27 21:02:00 36.89 Vee [facility] Respiratory rate 2022-01-27 21:02:00 18 /min [facility] Body height 2022-01-27 21:02:00 172.7 cm [facility] Body weight 2022-01-27 21:02:00 94.62 kg [facility] BMI 2022-01-27 21:02:00 31.72 kg/m2 [facility] Oxygen saturation in 2022-01-27 21:02:00 98 /min [facility] Arterial blood by [place] [facility] [facility] Pulse oximetry Branch Systolic blood 2021-12-23 16:07:00 152 mm[Hg] [facility] Diastolic blood 2021-12-23 16:07:00 77 mm[Hg] [facility] Heart rate 2021-12-23 16:06:00 87 /min [facility] Body temperature 2021-12-23 16:06:00 36.83 Vee [facility] Respiratory rate 2021-12-23 16:06:00 18 /min [facility] Body height 2021-12-23 16:06:00 175.3 cm [facility] Body weight 2021-12-23 16:06:00 95.255 kg [facility] BMI 2021-12-23 16:06:00 31.01 kg/m2 [facility] Oxygen saturation in 2021-12-23 16:06:00 97 /min [facility] blood by [place] [facility] P[facility] Systolic blood 2021-12-06 20:46:00 114 mm[Hg] [facility] Diastolic blood 2021-12-06 20:46:00 61 mm[Hg] [facility] Heart rate 2021-12-06 20:46:00 91 /min [facility] [place] Body temperature 2021-12-06 20:46:00 36.44 Vee [facility] Respiratory rate 2021-12-06 20:46:00 18 /min [facility] Body height 2021-12-06 20:46:00 175.3 cm [facility] [place] Body weight 2021-12-06 20:46:00 96.435 kg [facility] BMI 2021-12-06 20:46:00 31.40 kg/m2 [facility] Oxygen saturation in 2021-12-06 20:46:00 97 /min [facility] Arterial blood by [facility] Pulse oximetry Branch Procedures Procedure Date / Time Performing Clinician Source Performed US RETROPERITONEAL 2022-10-23 19:24:36 Florencia Black [facility] COMPLETE Medical Branch REFERRAL- REQUEST/RESPONSE 2022-10-15 05:01:00 Doctor Ashish , [facility] Name [facility] [place] EKG-12 LEAD 2022-09-30 01:28:34 German Womack [facility] BASIC METABOLIC PANEL (NA, 2022-09-29 23:33:00 German Womack [facility] K, CL, CO2, GLUCOSE, BUN, Medica l Branch CREATININE, CA) CONSENT/REFUSAL FOR 2022-09-29 22:47:58 Doctor Unacarrie, [facility] DIAGNOSIS AND TREATMENT [place] [facility] CBC WITH DIFF 2022-09-29 18:57:00 Felicia Worthington [facility] URINALYSIS 2022-09-12 04:57:00 Liliana Mitchell [facility] NOTICE OF PRIVACY 2022-09-12 02:23:41 Doctor Ashish, [facility] PRACTICES [place] [facility] CONSENT/REFUSAL FOR 2022-09-12 02:23:15 Doctor Ashish [facility] DIAGNOSIS AND TREATMENT [place] [facility] REFERRAL- REQUEST/RESPONSE 2022-04-11 06:01:00 Doctor Unassigned , [facility] [place] [facility] DME/SUPPLY JUSTIFICATION 2022-03-11 06:01:00 Doctor Unassigned, [facility] [place] [facility] POCT URINALYSIS 2022-02-14 00:00:00 Katharina [facility] f [facility] ASSIGNMENT OF BENEFITS 2022-02-12 17:33:03 Doctor Unassigned, Un [facility] [place] [facility] FLU 2021-12-23 16:43:12 Mary Ramírez [facility] VACC(),65+YR,0.5 Medica l Branch ML,IM,ADJUVANTED,QUAD(FLUA D) ASSIGNMENT OF BENEFITS 2021-12-23 15:52:15 Doctor Unassigned, Un [facility] Name [facility] Encounters Start End Encounter Admission Attending Care Care Encounter Source Date/Time Date/Time Type Type Clinicians Facility Department ID 2021-01-28 Inpatient [facility] IESHA [id number] Univers [facility] 2021-01-28 Outpatient [facility] IESHA [id number] Univers 10:31:[facility] 2021-01-27 [facility] [id number] Univers 11:25:21 PETTY [facility] 2022-12-17 2022-12-17 [id number] Univers 11:00:00 11:00:00 FELICIA anguiano [facility] 2022-11-10 2022-11-10 Ancillary Nakul Villanueva [facility] 1.2.840. 114 [id number] Univers 15:15:00 16:00:00 Visit Felicia Worthington 350.1.13.10 silvio rodriguez [place] 4.2.7.2.686 Abhay DE LEONIO [id number] [place] [address] Branch [facility] 2022-11-10 2022-11-10 [facility] [id number] Univers 15:15:00 15:15:00 FELICIA silvio [facility] 2022-11-10 2022-11-10 Outpatient R BRODIE [facility] [id number] Univers 09:30:00 09:30:00 PETTY anguiano [facility] 2022-11-07 2022-11-07 Ancillary Heidy Villanueva [facility] 1.2.840 .114 [id number] Univers 13:45:00 14:30:00 Visit Felicia Worthington 350.1.13.10 ity of [facility] [place] [phone] Ri dical NAL 179 [facility] 2022-11-03 2022-11-03 Case Rich [facility] 1.2.840.114 [id number] Univers 00:00:00 00:00:00 Management Nakul FIELD 350.1.13.10 ity of [facility] [place] [id number] Ri dical NAL 179 [facility] 2022-10-29 2022-10-29 [facility] 1.2.840.114 [id number] Univers 00:00:00 00:00:00 Felicia FIELD 350.1.13.10 i ty of [facility] 4.2.[place] [phone] Ri dical NAL 044 [facility] 2022-10-27 2022-10-27 Outpatient R ROXY [facility] [id number] Univers 13:00:00 14:06:52 FELICIA silvio [facility] 2022-10-27 2022-10-27 Ancillary María Bautista [facility] 1 .2.840.114 [id number] Univers 13:00:00 14:06:52 Visit Felicia Worthington 350.1.13.10 ity of [facility] [place] [id number] Ri dical NAL 179 [facility] 2022-10-23 2022-10-23 Outpatient R FLORENCIA BLACK [facility] 10 [id number] Univers 13:45:28 23:59:00 FLORENCIA BLACK i ty of [facility] 2022-10-23 2022-10-23 Hospital [facility] 1.2.840.114 [id number] Univers 13:45:28 23:59:00 Encounter Florencia RASHIDA 350.1.13.10 [place] [id number] [facility] [address] [place] 2022-10-23 2022-10-23 Curator Of Photography And Prints 2, Adc Lab [facility] 1.2.840.114 [id number] Univers 13:15:00 13:30:00 Visit Felicia Worthington 350.1.13.10 [place] [id number] Ri dical NAL 353 [facility] 2022-10-15 2022-10-15 Telephone [facility] 1.2.840.114 1 [id number] Univers 00:00:00 00:00:00 Felicia FIELD 350.1.13.10 i ty [place] [phone] Ri dical NAL 044 [facility] 2022-10-15 2022-10-15 Orders Doctor DIAZ 1.2.840.114 [id number] Univers 00:00:00 00:00:00 Only Unassigned, ASHLI 350.1.13.10 ity of [place] [facility] 4.2.7.2.686 [place] as [id number] [facility] [address] [place] 2022-10-06 2022-10-06 Curator Of Photography And Prints 2, Adc Lab [facility] 1.2.840.114 [id number] Univers 11:00:00 11:15:00 Visit Felicia Worthington 350.1.13.10 [place] [phone] Ri dical NAL 353 [facility] 2022-10-06 2022-10-06 Outpatient R ROXY [facility] [id number] Univers 11:00:00 11:00:00 FELICIA anguiano of [facility] 2022-10-03 2022-10-03 Outpatient R EDBARBYVESNA [facility] [id number] Univers 16:00:00 16:31:05 PETER ity of [facility] 2022-10-03 2022-10-03 [facility] 1.2.840.114 [id number] Univers 16:00:00 16:31:05 Visit Felicia FIELD 350.1.13.10 i [place] [id number] Ri dical NAL 044 [facility] 2022-10-03 2022-10-03 Telephone [facility] 1.2.090.391 [id number] Univers 00:00:00 00:00:00 Florencia EMMANUELPEC 350.1.13.10 [place] of [place]2.7.2.[place] [facility] [phone] [facility] [place] [place] [address] [facility] 2022-09-29 2022-09-29 Emergency [facility] 1.2.682.231 [id number] Univers 17:54:00 20:42:00 Meetabrad GIRONDAPHNIE 350.1.13.10 i ty [place] [id number] [facility] 084 Branch 2022-09-29 2022-09-29 Curator Of Photography And Prints Marianna, Adc Lab Main [facility] 1.2.8 40.114 [id number] Univers 13:30:00 13:45:00 Visit Florencia Black 350.1.13.10 ity of [facility] 4.2.7.2.[place] [id number] Ri dical NAL 353 [facility] 2022-09-29 2022-09-29 Outpatient R FLORENCIA BLACK [facility] 10 [id number] Univers 13:30:00 13:30:00 FRITZ BLACKYA i ty of [facility] 2022-09-29 2022-09-29 Outpatient R FLORENCIA BLACK [facility] ERT 10 [id number] Univers 13:30:00 13:30:00 MONAE FLORENCIA i ty of [facility] 2022-09-29 2022-09-29 Telephone RUTHANN Black 1.2.840.114 [id number] Univers 00:00:00 00:00:00 Florencia Y HEALTH 350.1.13.10 i ty of CLINICS 4.2.7.2.686 [facility] [phone] [facility] [address] Branch 2022-09-26 2022-09-26 Telephone Monae [facility] 1.2.018.601 [id number] Univers 00:00:00 00:00:00 Florencia MULTISPEC 350.1.13.10 ity of [place] 4.2.7.2.686 [facility] [id number] [address] [facility] 2022-09-24 2022-09-24 Curator Of Photography And Prints Vt-Lab [facility] 1.2.840.114 [id number] Univers 15:30:00 15:45:00 Visit MonaeFlorencia 350.1.13.10 ity of [place] 4.2.7.2.686 [facility] [id number] [facility] [address] [facility] 2022-09-24 2022-09-24 Outpatient R FLORENCIA BLACK [facility] 10 [id number] Univers 14:30:00 15:05:48 FLORENCIA BLACK i ty of [facility] 2022-09-24 2022-09-24 Office [facility] 1.2.840.114 [id number] Univers 14:30:00 15:05:48 Visit Florencia TORIBIO 350.1.13.10 ity of [place] 4..7.[address] [place] [id number] [facility] 2022-09-11 2022-09-12 Emergency X [facility] ERT [id number] Univers 21:35:00 04:09:00 LILIANA ity of [facility] 2022-09-11 2022-09-12 Emergency [facility] 1.2.113.920 [id number] Univers 21:35:00 04:09:00 Liliana FIELD 350.1.13.10 ity of [place] 4.2.7.2.686 [facility] [id number] [facility] 0[address] Branch 2022-09-02 2022-09-02 Telephone [facility] 1.2.307.312 [id number] Univers 00:00:00 00:00:00 Florencia MULTISPEC 350.1.13.10 [place]2.7.2.[place] [id number] [facility] AND [place] [address] [facility] 2022-08-28 2022-08-28 Outpatient R ROXY [facility] [id number] Univers 11:00:00 11:35:50 FELICIA anguiano [facility] 2022-08-28 2022-08-28 [facility] 1.2.840.114 [id number] Univers 11:00:00 11:35:50 Visit Felicia FIELD 350.1.13.10 i ty of [facility] 4.2.[place].2.[place] [phone] Ri dical NAL [address] [place] [address] 2022-07-31 2022-07-31 Telephone [facility] 1.2.840.114 [id number] Univers 00:00:00 00:00:00 Felicia FIELD 350.1.13.10 i ty of [place].2.[place] [id number] Ri lex[address] 2022-07-30 2022-07-30 Outpatient R ROXY [facility] [id number] Univers 14:20:00 14:50:17 FELICIA anguiano [facility] 2022-07-30 2022-07-30 Telemedici [facility] 1.2.840.114 [id number] Univers 14:20:00 14:50:17 ne Visit Felicia FIELD 350.1.13.10 [place] of [place] [id number] Ri dical NAL [address] [place] [address] 2022-07-30 2022-07-30 Curator Of Photography And Prints 2, Adc Lab [facility] 1.2.840.114 [id number] Univers 14:00:00 14:00:00 Visit Felicia Worthington 350.1.13.10 [place] of [place] [id number] Ri dical NAL 353 [facility] 2022-07-30 2022-07-30 [facility] 1.2.840.114 [id number] Univers 00:00:00 00:00:00 Felicia FIELD 350.1.13.10 i ty of [facility] 4.2.7.2.[place] [phone] Ri dical NAL 044 [facility] 2022-07-21 2022-07-21 [facility] 1.2.840.114 [id number] Univers 00:00:00 00:00:00 Mary FIELD 350.1.13.10 ity of [facility] 4.2.7.2.[place] [id number] Ri dical NAL 044 [facility] 2022-07-21 2022-07-21 Refill [facility] 1.2.840.114 [id number] Univers 00:00:00 00:00:00 Felicia FIELD 350.1.13.10 i ty of [place]2.[place] [id number] Ri dical NAL [address] [place] [address] 2022-06-27 2022-06-27 Refill [facility] 1.2.840.114 [id number] Univers 00:00:00 00:00:00 Felicia FIELD 350.1.13.10 i ty of [place]2.[place] [id number] Ri dical NAL 044 [facility] 2022-06-11 2022-06-11 [facility] [id number] Univers 15:20:00 15:20:00 FELICIA anguiano of [facility] 2022-05-27 2022-05-27 Curator Of Photography And Prints 2, Adc Lab [facility] 1.2.840.114 [id number] Univers 09:30:00 09:45:00 Visit Felicia Worthington 350.1.13.10 ity of [facility] 4.2.7.2.[place] [id number] Me dical NAL 353 [facility] 2022-05-27 2022-05-27 [facility] [id number] Univers 09:30:00 09:30:00 FELICIA astudilloghulam [facility] 2022-05-26 2022-05-26 Outpatient R [facility] [id number] Univers 13:00:00 13:00:00 silvio [facility] 2022-05-12 2022-05-12 Outpatient R BRODIE [facility] [id number] [facility] 10:30:00 11:03:37 PETTY wildaghulam [facility] 2022-05-12 2022-05-12 Office [facility] 1.2.973.068 [id number] [facility] 10:30:00 11:03:37 Visit Petty FIELD 350.1.13.10 i ty [place] [id number] Ri dical NAL 188 [facility] 2022-05-07 2022-05-07 Refill [facility] 1.2.840.114 [id number] Univers 00:00:00 00:00:00 Felicia FIELD 350.1.13.10 i ty [place] [id number] Ri dical NAL 044 [facility] 2022-04-11 2022-04-11 Telephone [facility] 1.2.840.114 [id number] Univers 00:00:00 00:00:00 Felicia FIELD 350.1.13.10 i ty [place] [id number] Ri dical NAL 044 [facility] 2022-04-11 2022-04-11 Orders Doctor PERALES 1.2.840.114 [id number] Univers 00:00:00 00:00:00 Only Unassigned, ASHLI 350.1.13.10 ity of [place] [facility] 4.2.7.2.686 [place] as [phone] [address] 2022-03-13 2022-03-13 [facility] 1.2.840.114 [id number] Univers 00:00:00 00:00:00 Felicia FIELD 350.1.13.10 i ty [place] [id number] Ri dical NAL [address] [place] [address] 2022-03-11 2022-03-11 [facility] 1.2.840.114 [id number] Univers 00:00:00 00:00:00 Felicia FIELD 350.1.13.10 i ty [place] [id number] Ri dic[address] 2022-03-11 2022-03-11 Orders Doctor DIAZ 1.2.840.114 [id number] Univers 00:00:00 00:00:00 Only Unassigned, ASHLI 350.1.13.10 ity of [place] [facility] 4.2.7.2.686 [place] as [id number] [address] 2022-02-21 2022-02-21 Refill [facility] 1.2.840.114 [id number] Univers 00:00:00 00:00:00 Felicia FIELD 350.1.13.10 i ty [place] [id number] [address] 2022-02-18 2022-02-18 Outpatient R ROXY [facility] [id number] Univers 15:00:00 15:18:55 FELICIA anguiano [facility] 2022-02-18 2022-02-18 [facility] 1.2.840.114 [id number] Univers 15:00:00 15:18:55 Visit Felicia FIELD 350.1.13.10 i ty of [place].2.[place] [phone] Ri dicin NAL [address] [place] [address] 2022-02-14 2022-02-14 Urgent Rob Posadas [facility] [id number] Univers 11:00:00 11:20:00 Care Unknown, Attending HEALTH 350.1.13.10 ity of [place] 4.2.7.2.686 Candido as AARON?BLEA [phone] Ri dicjen KNEY [address] [facility] 2022-02-14 2022-02-14 Outpatient R KATHARINA [facility] [id number] Univers 11:00:00 11:00:00 ROB ity [facility] 2022-02-12 2022-02-12 Curator Of Photography And Prints 1, [facility] [id number] [id number] Univers 11:30:00 11:45:00 Visit Mary Ramírez 350.1.13.1 0 [place] [phone] [facility] [address] 2022-02-12 2022-02-12 Outpatient R MARY RAMÍREZ [facility] [id number] Univers 11:30:00 11:30:00 MARY RAMÍREZ ity [facility] 2022-02-12 2022-02-12 Orders Doctor DIAZ 1.2.840.114 [id number] Univers 00:00:00 00:00:00 Only Unassigned, ASHLI 350.1.13.10 ity of [place] [facility] 4.2.7.2.686 Candido as [phone] [facility] [address] 2022-01-27 2022-01-27 Outpatient R MARY RAMÍREZ [facility] [id number] Univers 14:30:00 16:02:42 MARY RAMÍREZ ity [facility] 2022-01-27 2022-01-27 Office Mel [facility] 1.2.840.114 [id number] Univers 14:30:00 16:02:42 Visit Mary FIELD 350.1.13.10 ity of [place] [facility] [phone] Ri kaya [facility] [address] BUILDING 2022-01-01 2022-01-01 Outpatient R [facility] [id number] Univers 15:15:00 15:15:00 ity of [facility] 2021-12-30 2021-12-30 [facility] 1.2.840.114 [id number] Univers 00:00:00 00:00:00 Felicia FIELD 350.1.13.10 i [place] of [place] [phone] [address] 2021-12-25 2021-12-25 [facility]ill [facility] 1.2.840.114 [id number] Univers 00:00:00 00:00:00 Felicia RASHIDA 350.1.13.10 i ty of [place] [phone] [address] 2021-12-23 2021-12-23 Outpatient [facility] [id number] Univers 14:30:00 14:30:00 [facility] 2021-12-23 2021-12-23 Outpatient [facility] [id number] Univers 14:30:00 14:30:00 [facility] 2021-12-23 2021-12-23 Outpatient R MARY RAMÍREZ [facility] [id number] Univers 11:30:00 12:01:10 MARY RAMÍREZ [facility] 2021-12-23 2021-12-23 Office Mel [facility] 1.2.840.114 [id number] Univers 11:30:00 12:01:10 Visit Mary FIELD 350.1.13.10 it[place] of [place] [id number] [address] 2021-12-23 2021-12-23 Orders Doctor PERALES 1.2.840.114 [id number] Univers 00:00:00 00:00:00 Only Unassigned, ASHLI 350.1.13.10 ity of [place] [facility] 4.2.7.2.686 Candido as [phone] [address] 2021-12-13 2021-12-13 [facility]phone [facility] 1.2.840.114 [id number] Univers 00:00:00 00:00:00 Felicia FIELD 350.1.13.10 i ty of [facility] 4.2.7.2.[place] [phone] [facility] 044 [facility] 2021-12-06 2021-12-06 Curator Of Photography And Prints Marianna, Adc Lab Main [facility] 1.2.8 40.114 [id number] [facility] 17:15:00 17:30:00 Visit MelMary field 350.1.13.1 0 ity of [place] [phone] [address] 2021-12-06 2021-12-06 Outpatient R MARY RAMÍREZ [facility] [id number] Univers 15:30:00 16:30:30 [facility] 2021-12-06 2021-12-06 [facility] 1.2.840.114 [id number] Univers 15:30:00 16:30:30 Visit Mary FIELD 350.1.13.10 ity of [facility] 4.2.7.2.[place] [id number] [address] 2021-12-03 2021-12-03 Outpatient R MARY RAMÍREZ [facility] [id number] Univers 16:30:00 16:30:00 [facility] 2021-11-20 2021-11-20 Curator Of Photography And Prints 2, Adc Lab [facility] 1.2.840.114 [id number] Univers 14:00:00 14:15:00 Visit Felicia Worthington 350.1.13.10 ity of [facility] 4.2.7.2.[place] [phone] [address] 2021-11-20 2021-11-20 [facility] [id number] Univers 13:20:00 13:34:38 FELICIA anguiano [facility] 2021-11-20 2021-11-20 [facility] 1.2.840.114 [id number] Univers 13:20:00 13:34:38 Visit Felicia FIELD 350.1.13.10 i ty of [place] 4.2.7.2.686 [place] [phone] Ri dical NAL [address] [place] [address] 2021-11-20 2021-11-20 Outpatient [facility] [id number] Univers 13:20:00 13:20:00 FELICIA anguiano [facility] 2021-11-13 2021-11-13 Refill [facility] 1.2.840.114 [id number] Univers 00:00:00 00:00:00 Felicia FIELD 350.1.13.10 i ty of [facility] 4.2.7.2.[place] [phone] [address] 2021-11-08 2021-11-08 [facility] [id number] Univers 13:00:00 13:00:00 FELICIA anguiano [facility] 2021-11-08 2021-11-08 Outpatient R [facility] IESHA [id number] Univers 06:49:00 09:00:00 PETTY astudilloghulam [facility] 2021-11-08 2021-11-08 [facility] 1.2.840.114 [id number] Univers 06:49:00 09:00:00 Encounter Petty FIELD 350.1.13.10 ity of [place] 4.2.7.2.686 [place] SURGICAL [phone] [place] [address] [place] 2021-11-08 2021-11-08 Surgery [facility] 1.2.018.878 [id number] Univers 08:00:00 08:55:00 Petty FIELD 350.1.13.10 i ty of [place] 4.2.7.2.686 [place] SURGICAL [phone] [facility] [address] 2021-11-07 2021-11-07 Laboratory Only, Adc Test [facility] 1.2.840. 114 [id number] Univers 08:00:00 08:15:00 Only Petty Calloway 350.1.13.10 ity of [place] 4.2.7.2.686 [place] [phone] [facility] [address] 2021-11-07 2021-11-07 Outpatient R BRODIE [facility] [id number] Univers 08:00:00 08:00:00 PETTY ity of [facility] 2021-11-07 2021-11-07 Orders Doctor DIAZ 1.2.840.114 [id number] Univers 00:00:00 00:00:00 Only Unassigned, ASHLI 350.1.13.10 ity of [place] [facility] 4.2.7.2.686 Candido as [phone] [facility] [address] 2021-10-11 2021-10-11 Refill [facility] 1.2.840.114 [id number] Univers 00:00:00 00:00:00 Felicia FIELD 350.1.13.10 i ty of [place]2.7.2.[place] [phone] [facility] 044 [facility] 2021-09-26 2021-09-26 Orders Doctor DIAZ 1.2.840.114 [id number] Univers 00:00:00 00:00:00 Only Unassigned, ASHLI 350.1.13.10 ity of [place] [facility] 4.2.7.2.686 Candido as [phone] [facility] [address] 2021-09-19 2021-09-19 Telephone [facility] 1.2.840.114 [id number] Univers 00:00:00 00:00:00 Felicia FIELD 350.1.13.10 i ty of [place].2.[place] [id number] [address] 2021-08-24 2021-08-24 Refill [facility] 1.2.840.114 [id number] Univers 00:00:00 00:00:00 Felicia FIELD 350.1.13.10 i ty of [place]2.7.2.[place] [phone] Ri dicin NAL [address] [place] [address] 2021-08-09 2021-08-09 [facility] 1.2.840.114 [id number] Univers 14:18:02 23:59:00 Encounter Felicia FIELD 350.1.13.10 ity of [place] 4[place]2.7.2.686 [place] [id number] [address] 2021-08-09 2021-08-09 Outpatient R [facility] [id number] Univers 14:17:35 14:17:35 FELICIA ghulam [facility] 2021-08-09 2021-08-09 [facility] 1.2.840.114 [id number] Univers 14:17:35 14:17:35 Encounter Felicia FIELD 350.1.13.10 ity [place] [address].2.7.2.686 [facility] [place] [phone] [address] 2021-08-09 2021-08-09 Outpatient R [facility] [id number] Univers 00:00:00 00:00:00 FELICIA silvio [facility] 2021-08-07 2021-08-07 Outpatient R [facility] [id number] Univers 14:40:00 15:24:25 FELICIA silvio [facility] 2021-08-07 2021-08-07 Office [facility] 1.2.840.114 [id number] Univers 14:40:00 15:24:25 Visit Felicia FIELD 350.1.13.10 i ty of [place]2.[place].2.[place] [phone] [address] 2021-08-06 2021-08-06 Curator Of Photography And Prints Marianna, Adc Lab Main [facility] 1.2.8 40.114 [id number] Univers 14:15:00 14:30:00 Visit Felicia Worthington.1.13.10 ity of [facility] 4.2.7.2.[place] [id number] Ri dical RENETTA 353 [facility] 2021-08-06 2021-08-06 Outpatient R ROXY [facility] [id number] Univers 14:15:00 14:15:00 FELICIA anguiano [facility] 2021-07-29 2021-07-29 Office [facility] 1.2.840.114 [id number] Univers 11:00:00 11:30:00 Visit Lisette FIELD 350.1.13.10 ity of [place]2.7.2.[place] [phone] Ri lexal RENET[place] 188 [facility] 2021-07-29 2021-07-29 Outpatient R BRODIE [facility] [id number] Univers 11:00:00 11:00:00 PETTY anguiano [facility] 2021-07-29 2021-07-29 Outpatient [facility] [id number] Univers 11:00:00 11:00:00 LISETTE anguiano o f [facility] 2021-07-25 2021-07-25 Urgent TejasXin [facility] 1.2.840. 114 [id number] Univers 14:00:00 14:00:00 Care Unknown, Attending HEALTH 350.1.13.10 ity of [place] 4.2.7.2.686 [place] AARON?BLEA [phone] Ri kaya BARROSO 370 [facility] OFFICE [facility] 2021-07-25 2021-07-25 Outpatient R KURTIS [facility] [id number] Univers 14:00:00 13:46:55 ANGELA anguiano [facility] 2021-07-25 2021-07-25 [facility] 1.2.840.114 [id number] Univers 00:00:00 00:00:00 Felicia FIELD 350.1.13.10 i ty of [place] 4.2.7.2.686 [place] [id number] Ri dical NAL [address] [place] [address] 2021-05-08 2021-05-08 Nurse Med, Medicare Wellness [facility] 1.2.840.114 [id number] Univers 16:00:00 16:04:38 Visit Felicia Worthington 350.1.13.10 ity of [facility] 4.2.7.2.[place] [phone] Ri dic[address] 2021-05-08 2021-05-08 Out[facility] [id number] Univers 14:40:00 16:04:23 FELICIA ghulam [facility] 2021-05-08 2021-05-08 Office [facility] 1.2.840.114 [id number] Univers 14:40:00 16:04:23 Visit Felicia FIELD 350.1.13.10 i ty of [place].2.[place] [phone] [address] 2021-05-08 2021-05-08 Outpatient [facility] [id number] Univers 14:40:00 16:04:23 FELICIA ghulam [facility] 2021-04-23 2021-04-23 Outpatient [facility] [id number] Univers 10:40:00 10:40:00 FELICIA ghulam [facility] 2021-04-23 2021-04-23 [facility] 1.2.840.114 [id number] Univers 00:00:00 00:00:00 Felicia FIELD 350.1.13.10 i ty of [place].2.[place] [phone] [address] 2021-04-17 2021-04-17 [facility] 1.2.840.114 [id number] Univers 00:00:00 00:00:00 Felicia FIELD 350.1.13.10 i ty of [facility] 4.2.7.2.[place] [id number] Ri dic[address] 2021-03-16 2021-03-16 Telephone [facility] 1.2.840.114 [id number] Univers 00:00:00 00:00:00 [facility] 350.1.13.10 it y of [place] 4.2.7.2.686 [place] [facility] [id number] [facility] PRIMARY & [address] SPECIALTY CARE 2021-03-13 2021-03-13 Outpatient R [facility] [id number] Univers 16:20:00 16:41:11 XIN ity o [facility] 2021-03-13 2021-03-13 Urgent Jaime Vickers [facility] 1.2.840. 114 [id number] Univers 16:20:00 16:41:11 Care Tejas [facility] 350.1.13.10 ity of [place] 4.2.7.2.686 Candido as AARON?BLEA [phone] [address] MEDICAL OFFICE BUILDING 2021-03-13 2021-03-13 Outpatient R [facility] [id number] [facility] 16:20:00 16:41:11 XIN ity o [facility] 2021-03-12 2021-03-12 Refmichael [facility] 1.2.840.114 [id number] Univers 00:00:00 00:00:00 Felicia FIELD 350.1.13.10 i ty of [place]2.[place].2.[place] [phone] [place] [address] [address] [facility] 2021-03-12 2021-03-12 Inder [facility] 1.2.840.114 [id number] Univers 00:00:00 00:00:00 Dannie FIELD 350.1.13.10 i ty of [place] 4[place]2.7.2.[place] [id number] [place] [address] [address] BUILDING 2021-02-20 2021-02-20 Orders Doctor PERALES 1.2.840.114 [id number] Univers 00:00:00 00:00:00 Only Unassigned, ASHLI 350.1.13.10 ity of [place] [facility] 4.2.7.2.686 Candido as [phone] [address] 2021-02-19 2021-02-19 Telephone [facility] 1.2.840.114 [id number] Univers 00:00:00 00:00:00 Felicia FIELD 350.1.13.10 i ty of [facility] 4.2.7.2.[place] [phone] Ri dical NAL 225 [facility] 2021-02-12 2021-02-12 Outpatient R [facility] [id number] Univers 13:20:00 13:20:00 FELICIA anguiano [facility] 2021-02-04 2021-02-04 Refill [facility] 1.2.840.114 [id number] Univers 00:00:00 00:00:00 Felicia FIELD 350.1.13.10 i ty of [place].2.686 [place] [phone] Ri dical NAL 044 [facility] 2021-01-31 2021-01-31 Orders Doctor DIAZ 1.2.840.114 [id number] Univers 00:00:00 00:00:00 Only Unassigned, ASHLI 350.1.13.10 ity of [facility] 4.2.7.2.686 Candido as [phone] [address] 2021-01-28 2021-01-28 Outpatient [facility] [id number] Univers 11:00:00 10:59:34 PETTY anguiano [facility] 2021-01-28 2021-01-28 Outpatient R [facility] [id number] Univers 11:00:00 10:59:34 PETTY anguiano [facility] 2021-01-28 2021-01-28 Office [facility] 1.2.024.737 [id number] Univers 10:27:33 10:59:34 Visit Petty FIELD 350.1.13.10 i ty of [place]2.7.2.[place] [id number] Ri dical NAL 188 [facility] 2021-01-28 2021-01-28 Telephone [facility] 1.2.840.114 [id number] Univers 00:00:00 00:00:00 Felicia FIELD 350.1.13.10 i ty [facility] 4.2.7.2.[place] [phone] Ri dical [facility] 044 [facility] 2021-01-16 2021-01-16 Outpatient R JOAQUIN [facility] [id number] Univers 15:30:00 15:30:00 [facility] 2021-01-16 2021-01-16 Outpatient R JOAQUIN [facility] [id number] Univers 15:30:00 15:21:07 [facility] 2021-01-16 2021-01-16 Imm/Inj Nurse, Adc Pob Immunization [facility] 1.2.840.114 [id number] Univers 15:20:56 15:21:07 Visit [place] 350.1.13 .10 [facility] [place] [phone] Ri dical [facility] 421 [facility] 2021-01-09 2021-01-09 Outpatient R ROXY [facility] [id number] Univers 15:00:00 16:59:18 FELICIA [facility] 2021-01-09 2021-01-09 Telemedici [facility] 1.2.840.114 [id number] Univers 11:50:17 16:59:18 ne Visit Felicia Field 350.1.13.10 [facility] 4.2.[place] [phone] Ri dical nal [address] [place] [address] 2021-01-09 2021-01-09 Outpatient R ROXY [facility] [id number] Univers 15:00:00 15:00:00 FELICIA ghulam [facility] 2021-01-03 2021-01-03 [facility] 1.2.840.114 [id number] Univers 00:00:00 00:00:00 Felicia Field 350.1.13.10 i ty of [place] 4[place]2.7.2.686 [place] [phone] Ri dical nal 044 [facility] 2020-12-31 2020-12-31 Office [facility] 1.2.955.198 [id number] Univers 11:00:55 11:46:21 Visit Petty Field 350.1.13.10 i ty of [place] 4.2.7.2.686 [place] [phone] Ri kaya lawson 188 [facility] 2020-12-31 2020-12-31 Outpatient R [facility] [id number] Univers 11:00:00 11:46:21 PETTY ghulam [facility] 2020-12-31 2020-12-31 Outpatient R [facility] [id number] Univers 11:00:00 11:00:00 PETTY [facility] 2020-12-31 2020-12-31 Telephone [facility] 1.2.646.377 [id number] Univers 00:00:00 00:00:00 [facility] 350.1.13.10 it y of [place] 4.2.7.2.686 Candido as Aaron?Blea [phone] Ri kaya barroso [address] [facility] 2020-12-28 2020-12-28 Telephone [facility] 1.2.840.114 [id number] Univers 00:00:00 00:00:00 Felicia Field 350.1.13.10 i ty of [place]2.[place].2.[place] [phone] Ri dical nal 044 [facility] 2020-12-24 2020-12-24 Transition Katelynn Saunders 1.2.840.114 [id number] Univers 00:00:00 00:00:00 of Care Tamiko Gama 350.1.13.10 i ty of [place].7.2.[place] [id number] [address] 2020-12-22 2020-12-22 Refill [facility] 1.2.840.114 [id number] Univers 00:00:00 00:00:00 Felicia Field 350.1.13.10 i ty of [place].7.2.[place] [phone] Ri dical nal 044 [facility] 2020-12-18 2020-12-21 [facility] 1.2.840.114 [id number] Univers 07:40:00 14:17:00 Encounter Petty [place] 350.1.13.10 ity of [place]2.7.2.[place] [phone] [facility] [address] 2020-12-18 2020-12-21 Outpatient R [facility] IESHA [id number] Univers 07:40:00 14:17:00 PETTY itghulam [facility] 2020-12-18 2020-12-18 Orders Doctor DIAZ 1.2.840.114 [id number] Univers 00:00:00 00:00:00 Only Unassigned, ASHLI 350.1.13.10 ity of [place] [facility] 4.2.7.2.686 Cand[place] as [phone] [facility] [address] 2020-12-17 2020-12-17 Outpatient [facility] [id number] Univers 13:45:00 13:45:00 LB itghulam [facility] 2020-12-17 2020-12-17 Laboratory Only, Adc Test [facility] 1.2.840. 114 [id number] Univers 08:10:40 08:25:40 Only Lb Benavides 350.1.13.10 ity of [place] 4.2.7.2.[place] [phone] [facility] [address] 2020-12-17 2020-12-17 Curator Of Photography And Prints Marianna, Adc Lab Main [facility] 1.2.8 40.114 [id number] Univers 08:10:14 08:25:14 Visit CallowayPetty kirkland 350.1.13.10 ity of [place] 4.2.7.2.[place] [phone] Ri dical nal 353 [facility] 2020-12-15 2020-12-15 Outpatient R [facility] [id number] Univers 10:00:00 10:00:00 ity [facility] 2020-12-15 2020-12-15 Outpatient [facility] [id number] Univers 10:00:00 10:00:00 PETTY anguiano [facility] 2020-12-14 2020-12-14 Telephone DIAZ [place] 1.2.840.114 [id number] Univers 00:00:00 00:00:00 Petty CORNELIUS 350.1.13.10 it y of [facility] 4.2.7.2.686 [place] as [id number] [facility] [address] 2020-12-13 2020-12-13 [facility] 1.2.840.114 [id number] Univers 13:52:43 23:59:00 Encounter Petty Field 350.1.13.10 ity of [place] 4.2.7.2.686 [place] [phone] [facility] [address] 2020-12-13 2020-12-13 Outpatient [facility] [id number] Univers 14:15:00 14:15:00 PETTY anguiano [facility] 2020-12-13 2020-12-13 Curator Of Photography And Prints aMrianna, Stacy Lab Main [facility] 1.2.8 40.114 [id number] Univers 13:56:47 14:11:47 Visit Petty Callowayton 350.1.13.10 ity of [place] 4.2.7.2.[place] [phone] [facility] [address] [facility] 2020-12-13 2020-12-13 [facility] 1.2.840.114 [id number] Univers 13:51:46 13:51:46 Encounter Petty [place] 350.1.13.10 ity of [place] 4.2.7.2.[place] [phone] [facility] [address] 2020-12-13 2020-12-13 Outpatient [facility] [id number] Univers 00:00:00 00:00:00 PETTY anguiano [facility] 2020-12-07 2020-12-07 [facility] 1.2.840.114 [id number] Univers 00:00:00 00:00:00 Surgery Marleen Wilbert Field 350.1.13.10 ity of [place] 4.[place].7.2.[place] [phone] [facility] 204 [facility] 2020-12-07 2020-12-07 Orders Doctor DIAZ 1.2.840.114 [id number] Univers 00:00:00 00:00:00 Only Unassigned, ASHLI 350.1.13.10 ity of [place] [facility] 4.2.7.2.686 Candido as [phone] [facility] [address] 2020-12-04 2020-12-04 Outpatient R [facility] [id number] Univers 16:15:00 16:56:25 PETTY silvio [facility] 2020-12-04 2020-12-04 Office [facility] 1.2.928.058 [id number] Univers 15:46:37 16:56:25 Visit Petty Field 350.1.13.10 i ty of [place] 4.2.7.2.[place] [phone] [facility] 188 [facility] 2020-12-04 2020-12-04 Outpatient R [facility] [id number] Univers 16:15:00 16:15:00 PETTY anguiano [facility] 2020-12-01 2020-12-01 Orders Doctor PERALES 1.2.840.114 [id number] Univers 00:00:00 00:00:00 Only Unassigned, ASHLI 350.1.13.10 ity of [place] [facility] 4.2.7.2.686 Cand[place] as [phone] [facility] [address] 2020-11-16 2020-11-16 Surgery [facility] 1.2.574.577 [id number] Univers 12:36:00 13:31:00 Petty Field 350.1.13.10 i ty of [place].2.[place].2.[place] [phone] [facility] [address] 2020-11-16 2020-11-16 [facility] 1.2.840.114 [id number] Univers 08:23:00 12:24:00 Encounter [place] 350.1.13.10 [place] [phone] [facility] [address] 2020-11-16 2020-11-16 Outpatient R BRODIE [facility] IESHA [id number] Univers 08:23:00 12:24:00 PETTY anguiano [facility] 2020-11-15 2020-11-15 Outpatient R BRODIE [facility] [id number] Univers 08:45:00 08:45:00 PETTY anguiano [facility] 2020-11-15 2020-11-15 Outpatient R BRODIE [facility] [id number] Univers 08:45:00 08:45:00 PETTY ghulam [facility] 2020-11-15 2020-11-15 Laboratory Only, Adc Test [facility] 1.2.840. 114 [id number] Univers 08:19:05 08:34:05 Only Petty [place] 350.1.13.10 ity [facility] [place].2.[place] [phone] [facility] [address] 2020-11-15 2020-11-15 Orders Doctor DIAZ 1.2.840.114 [id number] Univers 00:00:00 00:00:00 Only Unassigned, ASHLI 350.1.13.10 ity of [place] [facility] 4.2.7.2.686 [place] as [phone] [facility] [address] 2020-11-13 2020-11-13 [facility] 1.2.840.114 [id number] Univers 00:00:00 00:00:00 Management Marleen Field 350.1.13.10 [place] [phone] Ri dical [facility] [address] [facility] 2020-11-13 2020-11-13 Telephone Brodie [facility] 1.2.840.114 [id number] Univers 00:00:00 00:00:00 [place] 350.1.13.10 i [place] [phone] Ri kaya [facility] [address] [facility] 2020-09-28 2020-09-28 Prep [facility] 1.2.840.114 [id number] Univers 00:00:00 00:00:00 Surgery Marleen [place] 350.1.13.10 [place] [phone] [facility] 2020-09-26 2020-09-26 Office [facility] 1.2.840.114 [id number] Univers 15:13:12 16:12:10 Visit Alex Rashida 350.1.13.10 [place] [phone] [facility] 220 [facility] 2020-09-26 2020-09-26 Outpatient R CHALINO [facility] [id number] Univers 15:00:00 16:12:10 [facility] 2020-09-26 2020-09-26 Outpatient R CHALINO [facility] [id number] Univers 15:00:00 15:00:00 [facility] 2020-09-26 2020-09-26 Tele[facility] 1.2.840.114 [id number] Univers 00:00:00 00:00:00 Petty Rashida 350.1.13.10 [place] [phone] [facility] 204 [facility] 2020-09-24 2020-09-24 Outpatient R ROXY [facility] 1033 [id number] Univers 11:15:00 11:15:00 FELICIA ghulam [facility] 2020-09-24 2020-09-24 Outpatient R ROXY [facility] [id number] Univers 11:15:00 11:15:00 PETER [facility] 2020-09-24 2020-09-24 Curator Of Photography And Prints [place], Adc Lab Main [facility] 1.2.8 40.114 [id number] Univers 09:56:52 10:11:52 Visit Felicia Worthington 350.1.13.10 it[place] [phone] Ri dical nal 353 [facility] 2020-09-20 2020-09-20 [facility] 1.2.840.114 [id number] Univers 00:00:00 00:00:00 Petty Rashida 350.1.13.10 [place] [phone] Ri dical nal 188 [facility] 2020-09-18 2020-09-18 [facility] 1.2.840.114 [id number] Univers 00:00:00 00:00:00 Felicia Field 350.1.13.10 i [place] [phone] Ri dical nal 044 [facility] 2020-09-15 2020-09-15 Outpatient GRACIELA HaddadWU SURG [id number] [facility] 04:53:00 04:53:[address] 2020-09-12 2020-09-12 Outpatient R [facility] [id number] Univers 14:00:00 14:00:00 XIN wagner [facility] 2020-09-12 2020-09-12 [facility] [id number] Univers 14:00:00 14:00:00 XIN wagner [facility] 2020-09-11 2020-09-11 [facility] [id number] Univers 14:40:00 14:40:00 FELICIA anguiano [facility] 2020-08-23 2020-08-23 [facility]medici [facility] 1.2.840.114 [id number] Univers 08:26:49 10:17:50 ne Visit Felicia Field 350.1.13.10 it[place] [phone] Ri dical [address] 2020-08-23 2020-08-23 Telemedici [facility] 1.2.840.114 [id number] 08:26:49 10:17:50 ne Visit Felicia Field 350.1.13.10 [place] 4.2.7.2.686 Professio [phone] [address] 2020-08-23 2020-08-23 Outpatient R [facility] 1033 [id number] Univers 08:00:00 10:17:50 FELICIA silvio [facility] 2020-08-23 2020-08-23 Outpatient R [facility] 1033 [id number] Univers 08:00:00 08:00:00 FELICIA wildaghulam [facility] 2020-08-20 2020-08-20 Anesthesia Marleen Gutierrez 1.2.840.114 [id number] Univers 07:13:57 07:13:57 Event Percy Cornelius 350.1.13.10 it y of [facility] 4.2.7.2.686 [place] as [phone] [address] 2020-08-17 2020-08-17 Hospital Mo 1.2.840.5 [id number] Univers 07:28:00 08:48:00 Encounter Diaz Boswell50.1.1 it y of [place] 3.104.2.7 [place] .3.094461 [facility] [place] 2020-08-17 2020-08-17 Outpatient [facility] IESHA [id number] Univers 07:28:00 08:48:00 DIAZ anguiano [facility] 2020-08-17 2020-08-17 Telephone Mo 1.2.840.4 [id number] Univers 00:00:00 00:00:00 Diaz Flores.1.1 ity of [place] 3.104.2.7 [place] .3.184959 [facility] [place] 2020-08-17 2020-08-17 Telephone [facility] 1.2.840.114 [id number] Univers 00:00:00 00:00:00 Petty Field 350.1.13.10 [place] [phone] Ri dical [address] 2020-08-17 2020-08-17 Orders Doctor 1.2.840.5 [id number] Univers 00:00:00 00:00:00 Only Unassigned, 58642.1.1 ity of [place] 3.104.2.7 [place] .3.088682 Medica l .8 [place] 2020-08-17 2020-08-17 Telephone [facility] 1.2.840.114 [id number] 00:00:00 00:00:00 Petty Field 350.1.13.10 [place] 4.2.7.2.[address] Professio [phone] [address] 2020-08-16 2020-08-16 [facility] 1033 [id number] Univers 15:20:00 15:55:00 FELICIA anguiano [facility] 2020-08-16 2020-08-16 Telemedici Roxy, 1.2.840.1 [id number] Univers 10:14:35 15:55:00 ne Visit Felicia 11640.1.1 ity of 3.104.2.7 [place] .3.812464 Medica l .[address] [place] [address] 2020-08-16 2020-08-16 [facility] 1033 [id number] Univers 15:20:00 15:20:00 FELICIA silvio [facility] 2020-08-16 2020-08-16 Telephone Roxy, 1.2.840.3 [id number] Univers 00:00:00 00:00:00 Felicia 69061.1.1 ity of 3.104.2.7 [place] .3.635011 Medica l .8 [place] 2020-07-27 2020-07-27 [facility] 1032 [id number] Univers 00:00:00 00:00:00 FELICIA anguiano [facility] 2020-07-27 2020-07-27 Outpatient R ROXY [facility] [id number] Univers 00:00:00 00:00:00 FELICIA anguiano [facility] 2020-07-26 2020-07-26 Outpatient R BRODIE [facility] [id number] Univers 08:15:00 08:15:00 PETTY anguiano [facility] 2020-07-26 2020-07-26 Outpatient R BRODIE [facility] [id number] Univers 08:15:00 08:15:00 PETTY anguiano [facility] 2020-07-26 2020-07-26 Orders Doctor 1.2.840.8 [id number] Univers 00:00:00 00:00:00 Only Unassigned, 68859.1.1 ity of [place] 3.104.2.7 [place] .3.271327 Medica l .8 [place] 2020-07-19 2020-07-19 Telemedici Edemevesna, 1.2.840.2 [id number] Univers 09:39:15 09:39:51 ne Visit Felicia 38245.1.1 ity of 3.104.2.7 [place] .3.431063 Medica l .8 [place] 2020-07-19 2020-07-19 [facility] [id number] Univers 08:20:00 09:39:51 FELICIA silvio [facility] 2020-07-19 2020-07-19 [facility] 1032 [id number] Univers 08:20:00 08:20:00 FELICIA anguiano [facility] 2020-07-19 2020-07-19 Telephone [place], 1.2.840.0 [id number] Univers 00:00:00 00:00:00 Felicia 42374.1.1 ity of 3.104.2.7 [place] .3.731462 Medica l .8 [place] 2020-07-19 2020-07-19 Travel 1.2.840.1 1.2.168.862 [id number] Univers 00:00:00 00:00:00 50284.1.1 350.1.13.10 ity of 3.104.2.7 4[place].3.698 [place] .3.497499 084.8 Medica l .8 [place] 2020-07-15 2020-07-15 Refill [place], 1.2.840.8 [id number] Univers 00:00:00 00:00:00 Peter 78062.1.1 ity of 3.104.2.7 [place] .3.146868 Medica l .8 [place] 2020-07-11 2020-07-11 Refill Belcher, 1.2.840.5 [id number] Univers 00:00:00 00:00:00 Wentong 29949.1.1 ity of 3.104.2.7 [place] .3.540178 Medica l .8 [place] 2020-07-03 2020-07-03 Prep For Gramm, 1.2.840.1 [id number] Univers 00:00:00 00:00:00 Surgery Marleen A 90664.1.1 ity of 3.104.2.7 [place] .3.984951 Medica l .8 [place] 2020-07-02 2020-07-02 Telephone Calloway, 1.2.840.3 [id number] Univers 00:00:00 00:00:00 Petty 30693.1.1 ity of 3.104.2.7 [place] .3.247625 Medica l .8 [place] 2020-06-12 2020-06-12 Imm/Inj lJ Shea 1.2.840.1 [id number] Univers 15:40:22 15:41:15 Visit Nurse, Stacy Poneftaly Immunization 33648.1.1 ity of 3.104.2.7 [place] .3.631396 Medica l .8 [place] 2020-06-12 2020-06-12 Outpatient R TOMASZ [facility] [id number] Univers 15:40:00 15:41:15 JL [facility] [place] [facility] 2020-06-12 2020-06-12 Outpatient Anaid SHEA [facility] [id number] Univers 15:40:00 15:40:00 JL itghulam [facility] 2020-06-05 2020-06-05 Office Brodie, 1.2.840.4 [id number] Univers 13:24:01 14:24:46 Visit Petty 81571.1.1 ity of 3.104.2.7 [place] .3.579730 Medica l .8 [place] 2020-06-05 2020-06-05 Outpatient Anaid CALLOWAY [facility] [id number] Univers 13:30:00 13:30:00 PETTY anguiano [facility] 2020-06-05 2020-06-05 Telephone Belcher, 1.2.840.8 [id number] Univers 00:00:00 00:00:00 Wentong 91820.1.1 ity of 3.104.2.7 [place] .3.465718 Medica l .8 [place] 2020-06-05 2020-06-05 Orders Doctor 1.2.840.0 [id number] Univers 00:00:00 00:00:00 Only Unassigned, 55358.1.1 ity of [place] 3.104.2.7 [place] .3.873699 Medica l .8 [place] 2020-06-05 2020-06-05 Travel 1.2.840.1 1.2.970.433 [id number] Univers 00:00:00 00:00:00 18535.1.1 350.1.13.10 ity of 3.104.2.7 4[place].3.698 [place] .3.412661 084.8 Medica l .8 [place] 2020-05-22 2020-05-22 Outpatient Anaid TOMASZ [facility] [id number] Univers 14:10:00 16:37:05 JL silvio [facility] 2020-05-22 2020-05-22 Outpatient Anaid TOMASZ [facility] [id number] Univers 14:10:00 14:10:00 JL itghulam [facility] 2020-05-14 2020-05-14 [facility] 1.2.840.114 [id number] Univers 00:00:00 00:00:00 Felicia Field 350.1.13.10 i [place] [phone] Ri dical nal 044 [facility] 2020-02-07 2020-02-07 [facility] 1.2.840.114 [id number] Univers 00:00:00 00:00:00 Felicia Field 350.1.13.10 i [place] [phone] Ri dical nal 044 [facility] 2020-02-06 2020-02-06 [facility] 1.2.840.114 [id number] Univers 00:00:00 00:00:00 Felicia Field 350.1.13.10 i [place] [phone] Ri dical nal 044 [facility] 2020-01-25 2020-01-25 Telephone [facility] 1.2.921.941 [id number] Univers 00:00:00 00:00:00 Alex Field 350.1.13.10 i [place] [phone] Ri dical nal 220 [facility] 2020-01-12 2020-01-12 Curator Of Photography And Prints 2, Adc Lab [facility] 1.2.840.114 [id number] Univers 11:09:03 11:24:03 Visit Felicia Worthington 350.1.13.10 it[place] of [place] [phone] [facility] 353 [facility] 2020-01-12 2020-01-12 Outpatient R ROXY [facility] [id number] Univers 11:00:00 11:00:00 FELICIA anguiano [facility] 2019-12-26 2019-12-26 Telephone [facility] 1.2.840.114 [id number] Univers 00:00:00 00:00:00 Felicia Field 350.1.13.10 [place] [phone] [address] 2019-12-21 2019-12-21 Outpatient R CHALINO, [facility] [id number] Univers 13:30:00 13:30:00 ALEX anguiano [facility] 2019-12-20 2019-12-20 Tele[facility] 1.2.840.114 [id number] Univers 00:00:00 00:00:00 Felicia Field 350.1.13.10 i [place] [phone] [address] 2019-12-20 2019-12-20 [facility]phone [facility] 1.2.149.288 [id number] Univers 00:00:00 00:00:00 Lupis Atkins [facility] 350.1.13.10 i ty of [place] 4.2.7.2.686 [place] as Professio [phone] [address] One 2019-12-15 2019-12-15 [facility] 1.2.840.114 [id number] Univers 00:00:00 00:00:00 Felicia Field 350.1.13.10 i [place] [phone] [facility] 044 [facility] 2019-12-14 2019-12-14 Curator Of Photography And Prints 2, Adc Lab [facility] 1.2.840.114 [id number] Univers 13:28:29 13:43:29 Visit Felicia Worthington 350.1.13.10 ity of [place] [phone] [facility] 353 [facility] 2019-12-14 2019-12-14 [facility] [id number] Univers 13:30:00 13:30:00 FELICIA anguiano [facility] 2019-12-13 2019-12-13 Telephone [facility] 1.2.840.114 [id number] Univers 00:00:00 00:00:00 Felicia Field 350.1.13.10 i [place] [phone] Ri dic[address] 2019-11-14 2019-11-14 [facility] [id number] Univers 14:20:00 14:20:00 FELICIA itghulam [facility] 2019-11-14 2019-11-14 Telemedici [facility] 1.2.840.114 [id number] Univers 08:24:40 08:39:40 ne Visit Felicia Field 350.1.13.10 it[place] of [place] [phone] Ri dic[address] 2019-11-03 2019-11-03 [facility]phone [facility] 1.2.306.954 [id number] Univers 00:00:00 00:00:00 Alex Field 350.1.13.10 i [place] [phone] Ri dical [facility] 220 [facility] 2019-11-03 2019-11-03 Refill [facility] 1.2.840.114 [id number] Univers 00:00:00 00:00:00 Felicia Field 350.1.13.10 [place] [phone] Ri dical nal 044 [facility] 2019-11-03 2019-11-03 Refill [facility] 1.2.840.114 [id number] Univers 00:00:00 00:00:00 Felicia Field 350.1.13.10 [place] 4[place] [phone] Ri dicin nal 044 [facility] 2019-10-29 2019-10-29 [facility] 1.2.840.114 [id number] Univers 00:00:00 00:00:00 Felicia Field 350.1.13.10 i [place] [phone] Ri dical nal 044 [facility] 2019-10-28 2019-10-28 Refill [facility] 1.2.840.114 [id number] Univers 00:00:00 00:00:00 Topherong [place] 350.1.13.10 i [place] [phone] Ri dical nal 220 [facility] 2019-10-24 2019-10-24 Refmichael [facility] 1.2.840.114 [id number] Univers 00:00:00 00:00:00 Topherong [place] 350.1.13.10 [place] [phone] Ri dicin nal 220 [facility] 2019-10-14 2019-10-14 [facility]michael [facility] 1.2.840.114 [id number] Univers 00:00:00 00:00:00 Alex [place] 350.1.13.10 [place] 4[place]2.[place] [phone] [facility] 220 [facility] 2019-09-16 2019-09-16 [facility]ill [facility] 1.2.840.114 [id number] Univers 00:00:00 00:00:00 Felicia Field 350.1.13.10 [place]2.[place] [phone] Ri dical nal 044 [facility] 2019-08-18 2019-08-18 Outpatient R BRODIE [facility] [id number] Univers 13:00:00 13:00:00 PETTY anguiano [facility] 2019-08-17 2019-08-17 Outpatient R CHALINO [facility] [id number] Univers 10:30:00 10:30:00 ALEX anguiano [facility] 2019-08-17 2019-08-17 Telemedici [facility] 1.2.840.114 [id number] Univers 08:15:04 08:45:04 ne Visit Alex Rashida 350.1.13.10 it[place] of [place] [phone] Ri dical nal 220 [facility] 2019-08-15 2019-08-15 Refill [facility] 1.2.840.114 [id number] Univers 00:00:00 00:00:00 Alex Field 350.1.13.10 i [place] 4[place] [phone] Ri dical nal 220 [facility] 2019-05-17 2019-05-25 Office [facility] 1.2.122.068 [id number] [facility] [place] [facility] 16:04:39 11:49:14 Visit Petty Field 350.1.13.10 i [place] [phone] Ri dicin nal 377 [facility] 2019-05-17 2019-05-17 Outpatient R [facility] [id number] Univers 16:15:00 17:07:43 PETTY anguiano of [facility] 2019-05-16 2019-05-16 Telephone [facility] 1.2.840.114 [id number] Univers 00:00:00 00:00:00 Felicia Field 350.1.13.10 [place] 4[place] [phone] Ri dical nal 044 [facility] 2019-05-06 2019-05-06 Hospital [facility] 1.2.840.114 [id number] Univers 06:33:00 09:54:00 Encounter Petty Field 350.1.13.10 it[place] [phone] [facility] 071 [place] 2019-05-06 2019-05-06 Orders Doctor DIAZ 1.2.840.114 [id number] Univers 00:00:00 00:00:00 Only Unassigned, ASHLI 350.1.13.10 ity of [place] [facility] 4.2.7.2.686 [place] as [phone] [facility] evert 009 [place] 2019-05-04 2019-05-04 Telephone [facility] 1.2.665.706 [id number] Univers 00:00:00 00:00:00 [place]ong Rashida 350.1.13.10 i [place] [phone] Ri dical nal 220 [facility] 2019-03-11 2019-03-11 Outpatient R ROXY [facility] [id number] Univers 14:23:07 23:59:00 FELICIA ity of [facility] 2019-02-28 2019-02-28 Pre Visit Pcp, [facility] 1.2.302.232 [id number] Univers 00:00:00 00:00:00 Outreach Patient Rashida 350.1.13.10 ity of Does Not [place] 4.2.7.2.686 [place] as Have A Professio [phone] Ri dical nal 044 [facility] Results Test Description Test Time Test Comments Results Result Comments Source BASIC METABOLIC PANEL (NA, K, CL, CO2, GLUCOSE, BUN, 2022-09 00:07:38 CREATININE, [place]) Test Item Value Reference Range Interpretation Comme nts NA (test code = 9713808451) 139 mmol/L 135-145 K (test code = 6672712287) 5.8 mmol/L 3.5-5.0 H CL (test code = 0697397491) 104 mmol/L 98-108 CO2 TOTAL (test code = 4135502219) 20 mmol/L 23-31 L AGAP (test code = 9171874602) 15 2-16 BUN (test code = 2819791972) 63 mg/dL 7-23 H GLUCOSE (test code = 5770359799) 145 mg/dL 70-110 H CREATININE (test code = 1.94 mg/dL 0.50-1.04 H 8790261501) CALCIUM (test code = 6196504295) 9.1 mg/dL 8.6-10.6 eGFR (test code = 2217793286) 25.0 mL/min/1.73m2 CONCHITA (test code = CONCHITA) Association of Glomerular Filtration Rate (GFR) and Staging of Kidney Disease* + +-------- + ------+| GFR (mL/min/1.73 m2) ?| With Kidney Damage ?| ?Without Kidney Damage+ +-- + +| ?>90 ?| ?Stage one ?| ? Normal ?+ +------- + -------+| ?60-89 ?| ?Stage two ?| ? Decreased GFR ? + +-------- + ------+| ?30-59 ?| ?Stage three ?| ? Stage three ? + +-------- + ------+| ?15-29 ?| ?Stage four ? | ? Stage four ?+ +------- + -------+| ?<15 (or dialysis) ? ?| ?Stage five ? | ? Stage five ?+ +------- + -------+ *Each stage assumes the associated GFR level has been in effect for at least three months. ?Stages 1 to 5, with or without kidney disease, indicate chronic kidney disease. Notes: Determination of stages one and two (with eGFR >59mL/min/1.73 m2) requires estimation of kidney damage for at least three months as defined by structural or functional abnormalities of the kidney, manifested by either:Pathological abnormalities or Markers of kidney damage (including abnormalities in the composition of the blood or urine or abnormalities in imaging tests). Lab Interpretation (test code = Abnormal 46087-9) [facility] WITH [id number] 19:10:08 Test Item Value Reference Range Interpretation Comments WBC (test code = 9.00 See_Comment [Automated 8532-2) message] The sy stem which generated this result transmitted reference range : 4.30 - 11.10 10*3/?L. The reference range was not used to interpret this result as normal/abnormal . RBC (test code = 3.38 See_Comment L [Automated 900-8) message] The sy stem which generated this result transmitted reference range : 3.93 - 5.25 10*6/?L. The reference range was not used to interpret this result as normal/abnormal . HGB (test code = 10.5 g/dL 11.6-15.0 L 718-7) HCT (test code = 30.5 % 35.7-45.2 L 4544-3) MCV (test code = 90.2 fL 80.6-95.5 787-2) MCH (test code = 31.1 pg 25.9-32.8 785-6) MCHC (test code = 34.4 g/dL 31.6-35.1 786-4) RDW-SD (test code = 49.1 fL 39.0-49.9 99291-0) RDW-CV (test code = 14.9 % 12.0-15.5 788-0) PLT (test code = 185 See_Comment [Automated 777-3) message] The sy stem which generated this result transmitted reference range : 166 - 358 10*3/ ?L. The reference r mary was not used to interpret this result as normal/abnormal . MPV (test code = 10.8 fL 9.5-12.9 49243-7) NRBC/100 WBC (test 0.0 See_Comment [Automat ed code = 0572179387) message] The system which generated this result transmitted reference range : 0.0 - 10.0 /100 WBCs. The refer ence range was not u sed to interpret th is result as normal/abnormal . NRBC x10^3 (test code See_Comment [Auto mated = 3594177000) message] The s ystem which generated this result transmitted reference range : 10*3/?L. The reference range was not used to interpret this result as normal/abnormal . GRAN MAT (NEUT) % 64.3 % (test code = 770-8) IMM GRAN % (test code 0.40 % = 7217132637) LYMPH % (test code = 25.9 % 736-9) MONO % (test code = 4.7 % 5905-5) EOS % (test code = 4.0 % 713-8) BASO % (test code = 0.7 % 706-2) GRAN MAT x10^3(ANC) 5.79 10*3/uL 1.88-7.09 (test code = 0665540770) IMM GRAN x10^3 (test 0.04 10*3/uL 0.00-0.06 code = 9488262815) LYMPH x10^3 (test code 2.33 10*3/uL 1.32-3.29 = 731-0) MONO x10^3 (test code 0.42 10*3/uL 0.33-0.92 = 742-7) EOS x10^3 (test code = 0.36 10*3/uL 0.03-0.39 711-2) BASO x10^3 (test code 0.06 10*3/uL 0.01-0.07 = 704-7) Lab Interpretation Abnormal (test code = 38332-8) [facility] [id number] 17:42:00 Test Item Value Reference Range Interpretation Comments POCT U SP GRAV (test code = 1.010 mg/dl 1.005-1.025 3255) POCT PH U (test code = 3254) 5 mg/dl 5-8 POCT U LEUK EST (test code = ++ Negative - Negative 3263) POCT U NIT (test code = 3262) positive Negative - Negative POCT U PROT (test code = +++500 Negative - Negative 3259) POCT U GLU (test code = 3256) normal Negative - Negative POCT U KETONE (test code = negative Negative - Negative 3258) POCT U UROBILI (test code = normal 0.2-1 3260) POCT U BILI (test code = negative Negative - Negative 3261) POCT U BLD (test code = 3257) about 250 Negative - Negative POCT U COLOR (test code = orange/Azo 3266) POCT U APPEAR (test code = clear 3267) [facility] [id number] 10:31:00 Test Item Value Reference Range Interpretation Comments GLUCOSE BEDSIDE TESTING (test code 269 MG/DL 60-99 H = GLUBED) GLUCOSE BEDSIDE [id number] 08:06:00 Test Item Value Reference Range Interpretation Comments GLUCOSE BEDSIDE TESTING (test code 328 MG/DL 60-99 HH = GLUBED) BASIC METABOLIC [id number] 06:25:00 Test Item Value Reference Range Interpretation [...] 445 MG/DL 74-106 HH CALLED TO ALYSSA Blunt& GLU) READBACK ON AT 0621 BY Óscar Benz [...] 9.3 MG/DL 8.4-10.2 N CA) Comments to Interface Analyst: RN TO COLLECTLIPID PROFILE (CORONARY RISK)2020-09-15 06:25:00 [...] LDL) mg/dLNEAR OPTIMAL/ABOVE OPTIMAL........ .100-12 9 mg/dL BORDER LINE HIGH.........13 0-159 mg/dL HIGH.........16 0-189 mg/dL VERY HIGH.........>/ = 190 mg/dL Comments to Interface Analyst: RN TO [id number] 06:25:00 Test Item Value Reference Range Interpretation Comments MAGNESIUM (test code = MAG) 1.5 MG/DL 1.6-2.3 L Comments to Interface Analyst: RN TO COLLECTPROTHROMBIN [id number] 06:22:00 Test Item Value Reference Range Interpretation Comments PROTHROMBIN TIME 10.8 SECONDS 9.5-12.7 N PATIENT (test code = PTP) INTERNATIONAL NORMAL 1.0 0.86-1.14 N The INR is to be RATIO (test code = used only for INR) monitoring oral anticoagulantth erap y. INDICATION INR VALUE ---- ---- ---- -------1. Prophylaxis, de ep venous thrombos is, including high risk surgery. 2.0 - 3.0 2. Prophylaxis, deep venous thrombosis, hip surgery, treatm ent for deep venous thrombosis or pulmonary prevention of systemic emboli sm in patients wit h valvular heart disease, atrial fibrillation, tissue heart va lve, or acute myocar dial infarction. 2.0 - 3.0 3. Aerophysicist al prosthesis hear t valves, recurre nt systemic emboli sm. 3.0 - 4.5 Comments to Interface Analyst: RN TO COLLECTPTT [id number] 06:22:00 Test Item Value Reference Range Interpretation Comments PTT ACTIVATED (test code = APTT) 34.4 SECONDS 25.1-36.5 N Comments to Interface Analyst: RN TO COLLECTLIPID PROFILE (CORONARY RISK)2020-09-15 06:21:00 [...] MG/DL 0-99 code = LDL) Comments to Interface Analyst: RN TO [id number] 06:21:00 Test Item Value Reference Range Interpretation Comments MAGNESIUM (test code = MAG) 1.5 MG/DL 1.6-2.3 L Comments to Interface Analyst: RN TO COLLECTBASIC METABOLIC [id number] 06:21:00 Test Item Value Reference Range Interpretation [...] 445 MG/DL 74-106 HH CALLED TO ALYSSA Blunt& DIGNA) READBACK ON AT 0621 BY Óscar Benz er BLOOD UREA NITROGEN 35 MG/DL 7-17 H (test code = BUN) GLOMERULAR FILTRATION 37 Report ing units: RATE (test code = GFR) ml/mi n/1.73 m2 (Modified MDRD Formula)Referen ce Range: > or = 6 0 ml/min/1.73 m2 CREATININE (test code 1.40 MG/DL 0.52-1.04 H = CREAT) CALCIUM (test code = 9.3 MG/DL 8.4-10.2 N CA) Comments to Interface Analyst: RN TO COLLECTCBC W/AUTO [id number] 06:05:00 Test Item Value Reference Range Interpretation [...] 0.00 K/mm3 0.0-0.1 N NRBC#) Comments to Interface Analyst: RN TO COLLECT History and Physical Notes Date/Time Note Provider Source 2022-10-29 11:11:49-00:00 Formatting of this note migh t be different from the original. [facility] Future Labs Stage 3b chronic kidney disease (CKD) - RENAL PANEL; Future - INTACT PTH CALCIUM GROUP; Future - PROTEIN QUANT U/24H; Future - BASIC METABOLIC PANEL (NA, K, CL, CO2, GLUCOSE, BUN, CREATININE, CA); Future Notes Date/Time Note Provider Source 2022-10-23 Formatting of this note is different from the or iginal. [facility] 13:15:00-00:00 Patient presented with speci men for drop-off and was identified by . Collection information/ total volume were documented accordingly. The following specimens were sent to [facility] laboratories per lab order on 10/23/2022 : 24 hour urine 1 Random urine Stool Swab Other Electronically signed by Wanda Zaragoza at 2022 1:21 PM CDT 2022-10-15 Formatting of this note might be differe nt from the original. Jessica Caraballo MA [facility] 16:53:58-00:00 Received medical records joseph Alexandre, records placed in provider initials folder. Electronically signed by Jessica Caraballo MA a t 10/15/2022 4:54 PM CDT 2020-09-15 [id number] [facility] 07:35:00-00:00 [address] [place] [address] PATIENT NAME: BRETT MARK ADMIT DATE: 09/15/20 ACCOUNT NO: [id number] ROOM NO: AGE: 75 REPORT TYPE: CARDIAC CATHETERIZATION REPORT SEX: F ADMITTING PHYSICIAN: ATTENDING PHYSICIAN:Jorge Alexandre MD PROCEDURE DATE: 09/15/2020 INTEGRATION SPECIALIST: Jorge Alexandre M.D. TITLE OF THE PROCEDURE: Left heart catheterizati on and sealing device. INDICATION FOR THE PROCEDURE: Dyspnea, abnormal nuclear stress test, high likelihood of significant coronary artery diseas e. ESTIMATED BLOOD LOSS: Minimal. COMPLICATIONS: None. CONTRAST: 60 mL. ANESTHESIA: Conscious sedati on with Versed and fentanyl, 1% lidocaine for local anesthesia. FINAL DIAGNOSES: Nonobstructive coronary artery disease. RECOMMENDATION: Medical therapy. PROCEDURE IN DETAIL: After informed consent, the patient was brought to the cardiac catheterization lab in a stable fasting nonsedated state. She was prepped and draped in the usual sterile fashion. After conscious sedation, 1% lidocaine was administered to the right common f emoral artery area for local anesthesia. A 6-Filipino sheath was placed in the right common femoral artery using standard techniques and fluoroscop y. After heparinization, left coronary angiogram showed a 45% plaque in the ost ial first diagonal, 35% mid and distal LAD, 20% plaque in the large obtuse marginal 1. Right coronary angiogram showed 35% plaque mid and distal, is a large dominant v essel. Left ventricular angiogram showed an ejection fraction of 65%, le ft ventricular end-diastolic pressure of 15, and no wall motion abnor malities or aortic valve gradient. The right groin was sealed using Angio-Seal. There w ere no complications. The patient tolerated the procedure well. She was tr ansferred back to the [facility] area for observation to be d ischarged later on today on medical therapy and risk factor modification. Dictated By: Jorge Alexandre MD WT: CATH:XOCHITL/BENJY/BELLA PATIENT NAME: BRETT MARK ACCOUNT #: [id number] Conf#: [id number]/DID#: [id number] Authenticated by Jorge Alexandre MD On 08/28 08:15:33 AM at 0815 PATIENT NAME: BRETT MARK 2020-09-15 [id number] [facility] 06:23:00-00:[address] [place] [address] PATIENT NAME: BRETT MARK ADMIT DATE: 09/15/20 ACCOUNT NO: [id number] ROOM NO: AGE: 75 REPORT TYPE: ELECTROCARDIOGRAM SEX: F ADMITTING PHYSICIAN: ATTENDING PHYSICIAN:Jorge Alexandre MD Order: [id number] Test Reason : PRE-PROCEDURE Test Date/Time Stamp: ThuSep 15 2020 06:23:56 Blood Pressure : / mmHG Vent. Rate : 082 BPM Atrial Rate : 082 BPM P-R Int : 176 ms QRS Dur : 080 ms QT Int : 388 ms P-R-T Axes : 033 037 036 degree s QTc Int : 453 ms Normal sinus rhythm Normal ECG No previous ECGs available Confirmed by JORGE ALEXANDRE ([id number]) on 09/15/2020 7:00:52 AM Referred By: Jorge Alexandre Confirmed by:JORGE SPENCER at 0701 PATIENT NAME: BRETT MARK ACCOUNT #: [id number] 2020-09-15 [id number] [facility] 06:23:00-00:[address] [place], [place] [id number] PATIENT NAME: BRETT MARK ADMIT DATE: 09/15/20 ACCOUNT NO: [id number] ROOM NO: AGE: 75 REPORT TYPE: ELECTROCARDIOGRAM SEX: F ADMITTING PHYSICIAN: ATTENDING PHYSICIAN:Jorge Alexandre MD Order: [id number] Test Reason : PRE-PROCEDURE Test Date/Time Stamp: ThuSep 15 2020 06:23:56 Blood Pressure : / mmHG Vent. Rate : 082 BPM Atrial Rate : 082 BPM P-R Int : 176 ms QRS Dur : 080 ms QT Int : 388 ms P-R-T Axes : 033 037 036 degre es QTc Int : 453 ms Normal sinus rhythm Normal ECG No previous ECGs available Confirmed by JORGE ALEXANDRE ([id number]) on 09/22/2020 9:28:06 AM Referred By: Jorge Alexandre Confirmed by:JORGE SPENCER at 0928 PATIENT NAME: BRETT MARK ACCOUNT #: [id number] 2020-09-14 [id number] [facility] 06:56:00-00:[address] [place] [address] PATIENT NAME: BRETT MARK ADMIT DATE: ACCOUNT NO: [id number] ROOM NO: AGE: 75 REPORT TYPE: HISTORY AND PHYSICAL SEX: F ADMITTING PHYSICIAN: ATTENDING PHYSICIAN:Jorge Alexandre MD PATIENT NAME: BRETT MARK ADMIT DATE:09/16/19 ADMISSION DATE: 09/15/2020 INTEGRATION SPECIALIST: Jorge Alexandre M.D. REASON FOR ADMISSION: Cardiac catheterization an d possible revascularization for symptomatic coronary artery disease with isc hemia and dyspnea. HISTORY OF PRESENT ILLNESS: Brett is a 75-year-o ld lady with no previous documented coronary artery disease who recently was evaluated with worsening dyspnea and for surgical clearance for polypecto my. The patient underwent noninvasive cardiac workup with a chemic al stress test, which was positive for inferolateral and posterolateral ischemia, which has changed from previous evaluation of 2016. Her echocardiogram showed hy pertensive heart disease with no evidence of valvular heart disease. Her last carotid Doppler showed less than 35% plaquing. She does have moderate PVC fr equency on a Holter monitor. Given the above, the patient is here for cardiac catheterization to assess her coronaries for possible revascularization. 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 PAST SURGICAL HISTORY: She has had toe amputatio n. ALLERGIES: NO KNOWN DRUG ALLERGIES. MEDICATIONS: Include multivi tamin Metamucil, magnesium, gabapentin, vitamin D3, amlodipine 5 mg daily, hydrochlorothiazide 12.5 mg daily, pravastatin 20 mg daily, ramipril 10 mg daily, insulin, and metfor min is on hold. SOCIAL HISTORY: There is no history of smoking, alcohol, or street drug use. FAMILY HISTORY: Positive for atherosclerotic car diovascular disease. REVIEW OF SYSTEMS: Remarkable for the ab ove in addition to fatigue, occasional dizziness, allergies, irregular bowels, peripher al neuropathy, arthritis, depression. No acute GI or symptoms. No TIAs or strokes. PHYSICAL EXAMINATION: GENERAL: Reveals a pleasant elderly lady in no a cute distress. PATIENT NAME: BRETT MARK 4882 VITAL SIGNS: Blood pressure 130/80, pulse 68 and regular, respiratory rate 18 and unlabored, and temperature afebrile. HEENT: Head atraumatic and normocephalic. Eyes a nd ENT examination within normal for age. NECK: Supple. No jugular venous distention, brui ts, or lymphadenopathy. Normal upstroke. LUNGS: Clear and resonant. HEART: Regular rate and rhythm with I/ systoli c ejection murmur at the left lower sternal border. No gallops. ABDOMEN: Soft. No tenderness. No organomegaly. N o masses or bruits. EXTREMITIES: 2+ distal pulses. No edema, cyanosi s, or clubbing. Areas of toe amputation noted. NEUROLOGIC: Alert and oriented x3. The examinati on appears to be nonfocal. LABORATORY DATA: Pending. Noninvasive cardiovasc ular workup enclosed. IMPRESSION: This is a 75-year-old lady with dysp carla, multiple cardiovascular risk factors, and ischemia on a nuclear stress t est who needs clearance for a polypectomy. She is here for coronary ar mari disease evaluation with a cardiac catheterization and possible revascularization. PLAN: The recommendation is to proceed with left heart catheterization and possible revascularization. The risks and benefi ts of the planned procedure were discussed in detail with the patient and sh e is willing to proceed. Rest as per orders. Dictated By: Jorge Alexandre MD WT: HP:LONNIE/BENJY/BELLA Conf#: [id number]/DID#: [id number] Authenticated and Edited by Jorge Alexandre MD On 09/14/20 4:27:45 PM at 1630 PATIENT NAME: BRETT MARK 4882
[2022-11-12] MEDS ORDERED: ONDANSETRON 4 MG/2 ML VIAL ONE (15:43)
[2022-11-12 16:03] LABS: Protime INR 1.01
[2022-11-12 16:06] LABS: Absolute Lymphocytes (CBC) 0.8 K/uL (0.7-4.9); Hematocrit 32.1 % (36.0-45.0); Lymphocytes % 7.5 % (15.3-44.8); MCV 89.3 fL (80-100); MPV 9.7 fL (7.6-11.3); Platelets 136 thou/uL (152-406); RBC Red Blood Cell Count 3.59 M/uL (3.86-4.86)
[2022-11-12] MEDS ORDERED: FAMOTIDINE 20 MG/2 ML VIAL IV ONE (16:07)
[2022-11-12 16:27] LABS: ALT/SGPT 27 U/L (13-56); Albumin 3.8 g/dL (3.4-5.0); Alkaline Phosphatase 63 U/L (45-117); BUN Blood Urea Nitrogen 43 mg/dL (7-18); Bicarbonate 18 mEq/L (21-32); Bilirubin Total 0.6 mg/dL (0.2-1.0); Glomerular Filtration Rate 33 ml/min (=/>90); Glucose Level 330 mg/dL (74-106); Lipase 73 U/L (13-75); NT PRO-BNP 262 pg/mL (<450); Potassium 5.5 mEq/L (3.5-5.1); Protein, Total 7.8 g/dL (6.4-8.2); Sodium Level 134 mEq/L (136-145); Troponin High Sensitivity 4.8 pg/mL (<58.9)
[2022-11-12 16:28] LABS: AST/SGOT 26 U/L (15-37); Bilirubin Direct < 0.1 mg/dL (0-0.2); Bilirubin Indirect, Calculated ND mg/dL (0.2-0.8); Magnesium 1.6 mg/dL (1.6-2.4)
--- NOTE | 2022-11-12 16:31 | RAD REPORT ---
EXAM DESCRIPTION: RAD - Chest Single View - 11/12/2022 4:08 pm CLINICAL HISTORY: COUGH Chest pain. COMPARISON: Chest Single View dated 04/07/2018; Chest Single View dated 11/05/2016 FINDINGS: Portable technique limits examination quality. The lungs are grossly clear. The heart is normal in size. No displaced fractures. IMPRESSION: No acute intrathoracic process suspected.
[2022-11-12 16:33] LABS: Specific Gravity 1.012 (1.005-1.030); Urine Bacteria None Seen /HPF (<20); Urine Bilirubin NEGATIVE (Negative); Urine Blood Negative (Negative); Urine Clarity Clear (Clear); Urine Color Colorless (Yellow); Urine Glucose 4+ (Over) (Negative); Urine Protein 1+ (Negative); Urine RBC <5 /HPF (None Seen); Urine Urobilinogen Normal (Normal)
--- NOTE | 2022-11-12 17:03 | RAD REPORT ---
EXAM DESCRIPTION: CT - Abdomen Pelvis Wo Contrast - 11/12/2022 4:48 pm CLINICAL HISTORY: Abdominal pain. ABD PAIN COMPARISON: <Comparisons> TECHNIQUE: CT imaging of the abdomen and pelvis was performed without contrast. Solid organ, bowel a nd vascular assessment is limited due to lack of IV and oral contrast. All CT scans are performed using dose optimization technique as appropriate and may include automated exposure control or mA/KV adjustment according to patient size. FINDINGS: The lower lung hercules are clear.Small hiatal hernia. Small gallstones are present in the g allbladder. The liver, spleen, pancreas, adrenal glands and left kidney are within normal limits for a limited no n-contrast examination.Moderate right-sided hydronephrosis and hydroureter is present caused by a 6 m m stone in the distal right ureter. No bowel obstruction, free air, free fluid or abscess. Postsurgical changes are present right colon. Mild lower lumbar degenerative changes. IMPRESSION: Moderate right hydronephrosis and hydroureter caused by a 6 mm distal right ureter stone . Cholelithiasis. A limited non-contrast examination was performed as detailed.
[2022-11-12] MEDS ORDERED: NA CHLORIDE 0.9% 1,000 ML ONE ×2 (17:05→17:27)
--- NOTE | 2022-11-12 17:12 | ER ---
Nurse's Notes [facility] Name: Cheyenne Gomez Age: 77 yrs Sex: Female : 1945 Arrival Date: 11/12/2022 Time: 15:03 Bed 14 Private MD: Diagnosis: Vomiting;Diarrhea, unspecified;Hyperkalemia;Unspecified kidney failure-CHRONIC;Hydronephrosis with renal and ureteral calculous obstruction-6 MM DISTAL RIGHT URETER;Type 2 diabetes mellitus with hyperglycemia Presentation: 11/12 15:30 Chief complaint: EMS states: patient has had nausea and vomiting since noon. ko1 Coronavirus screen: At this time, the client does not indicate any symptoms associated with coronavirus-19. Ebola Screen: No symptoms or risks identified at this time. Initial Sepsis Screen: Does the patient meet any 2 criteria? No. Patient's initial sepsis screen is negative. Initial Sepsis Screen: Does the patient have a suspected source of infection? No. Patient's initial sepsis screen is negative. Risk Assessment: Do you want to hurt yourself or someone else? Patient reports no desire to harm self or others. Onset of symptoms was November 12, 2022 at 12:00. Care prior to arrival: IV initiated. 20 GA, in the right forearm, Glucose check: 382. 15:30 Method Of Arrival: EMS: [facility] ko1 15:30 Acuity: KYLER 3 ko1 Triage Assessment: 16:42 General: Appears distressed, uncomfortable, Behavior is calm, cooperative, appropriate ko1 for age. Pain: Denies pain. Historical: - Allergies: 16:42 Codeine; ko1 16:42 Morphine; ko1 - PMHx: 16:42 Depression; Diabetes - NIDDM; Hyperlipidemia; ko1 - PSHx: 16:42 colonoscopy; Partial colon removal; ko1 - Immunization history:: Adult Immunizations up to date. - Social history:: Smoking status: Patient denies any tobacco usage or history of. - Family history:: not pertinent. Screenin:00 [facility] ED Fall Risk Assessment (Adult) History of falling in the last 3 months, ko1 including since admission Yes- single mechanical fall (1 pt) Confusion or Disorientation No (0 pts) Intoxicated or Sedated No (0 pts) Impaired Gait Yes (1 pt) Mobility Assist Device Used Yes (1 pt) Altered Elimination No (0 pt) Score/Fall Risk Level 3 or more points = High Risk Oriented to surroundings, Maintained a safe environment, Educated pt \T\ family on fall prevention, incl call for assistance when getting out of bed, Assessed \T\ reinforced patient's understanding of fall precautions, Provided non-skid footwear, Hourly rounding (assess needs \T\ fall precautionary measures) done, Used ambulatory aids as needed (educated on \T\ assisted with), Used gait belt as appropriate Implemented a Fall Risk Plan of Care, Apply high fall risk patient identification: yellow non skid footwear/ fall signage, Remained w/in arm's length of patient and in sight while toileting, Offered frequent toileting (1:1 observation), Remained with patient while ambulating, Utilized family, sitter, or virtual magnetic grinder operator as indicated. Abuse screen: Denies threats or abuse. Denies injuries from another. Nutritional screening: No deficits noted. Tuberculosis screening: No symptoms or risk factors identified. Assessment: 16:00 Neuro: No deficits noted. Cardiovascular: No deficits noted. Respiratory: No deficits ko1 noted. GI: Reports nausea, vomiting, since noon. : Reports renal failure. EENT: No deficits noted. Derm: No deficits noted. Musculoskeletal: Reports weakness in generalized. 19:00 Reassessment: Patient appears in no apparent distress at this time. Patient and/or jb4 family updated on plan of care and expected duration. Pain level reassessed. Patient is alert, oriented x 3, equal unlabored respirations, skin warm/dry/pink. 20:16 Reassessment: Patient appears in no apparent distress at this time. Patient and/or jb4 family updated on plan of care and expected duration. Pain level reassessed. Patient is alert, oriented x 3, equal unlabored respirations, skin warm/dry/pink. Vital Signs: 15:30 BP 141 / 80; Pulse 88; Resp 18; Temp 97.8(O); Pulse Ox 99% ; ko1 16:00 BP 156 / 83; Pulse 75; Resp 18; Pulse Ox 98% ; ko1 18:00 BP 133 / 69; Pulse 73; Resp 18; Pulse Ox 98% ; ko1 20:00 BP 139 / 72; Pulse 76; Resp 16; Pulse Ox 95% on R/A; jb4 ED Course: 15:30 Patient arrived in ED. sb4 15:30 Ang Tripathi MD is Attending Physician. sheri 15:31 Luci Jhaveri, BRIAN is Primary Nurse. ko1 15:53 Lipase Sent. ko1 15:53 Basic Metabolic Panel Sent. ko1 15:53 CBC with Diff Sent. ko1 15:54 LFT's Sent. ko1 15:54 Magnesium Sent. ko1 15:54 NT PRO-BNP Sent. ko1 15:54 PT-INR Sent. ko1 15:54 Troponin HS Sent. ko1 16:10 XRAY Chest (1 view) In Process Unspecified. EDMS 16:26 Urinalysis w/ reflexes Sent. ko1 16:42 Triage completed. ko1 16:42 Arm band placed on right wrist. Patient placed in an exam room, on a stretcher, on ko1 plate mill mill hand, on pulse oximetry, Patient notified of wait time. 16:49 CT Abd/Pelvis - Without Contrast In Process Unspecified. EDMS 17:00 Maintain EMS IV. Dressing intact. Good blood return noted. Site clean \T\ dry. Gauge \T\ ko 1 site: 20 right FA. 17:00 Patient has correct armband on for positive identification. Fall risk band placed. Bed ko1 in low position. Call light in reach. Side rails up X2. Provided Education on: NA. Pulse ox on. NIBP on. Door closed. Noise minimized. Warm blanket given. 17:13 George Martinez MD is Hospitalizing Provider. [facility] 20:00 No provider procedures requiring assistance completed. Patient admitted, IV remains in jb4 place. Administered Medications: 15:53 Drug: Ondansetron IVP 4 mg Route: IVP; Site: right forearm; ko1 15:54 Drug: NS 0.9% IV 1000 ml Route: IV; Rate: 1 bolus; Site: right forearm; ko1 15:56 Drug: Famotidine IVP 20 mg Route: IVP; Site: right forearm; ko1 16:26 Drug: NS 0.9% IV 1000 ml Route: IV; Rate: 125 ml/hr; Site: right antecubital; ko1 16:53 Drug: NS 0.9% IV 1000 ml Route: IV; Rate: 1 bolus; Site: right forearm; ko1 17:19 Drug: Flomax PO 0.4 mg Route: PO; ko1 17:19 Drug: Rocephin IV 1 grams Route: IV; Rate: per protocol; Site: right forearm; ko1 17:19 Drug: Insulin Regular Human IVP 5 units {Co-Signature: [id number] (Kusum Sexton RN).} ko1 Route: IVP; Site: right forearm; 18:06 Drug: Insulin Glargine Sub-Q 25 units Route: Sub-Q; Site: right lower abdomen; ko1 Medication: 20:00 VIS not applicable for this client. jb4 Outcome: 17:12 Discharge ordered by . sheri 17:12 Discharge ordered by . sheri 17:14 Decision to Hospitalize by Provider. [facility] 20:00 Admitted to Tele accompanied by nurse, via stretcher, room 429. jb4 20:00 Condition: stable 20:00 Discharge instructions given to patient, Instructed on the need for admit, Demonstrated understanding of instructions. 20:18 Patient left the ED. jb4 Signatures: Dispatcher [employer] Ang Rose MD MD cha Bryson, James, RN RN jb4 Luci Jhaveri, RN RN ko1 Bel Villanueva, PA-C PA-C [email or web address] Kusum Sexton RN [id number]
--- NOTE | 2022-11-12 17:12 | EDPHYS ---
Physician Documentation [facility] Name: Cheyenne Gomez Age: 77 yrs Sex: Female : 1945 Arrival Date: 11/12/2022 Time: 15:03 Bed 14 Private MD: ED Physician Ang Tripathi HPI: 11/12 15:46 This 77 yrs old Female presents to ER via Unassigned with complaints of sheri VOMITING AND DIARRHEA. 15:46 The patient presents with abdominal pain in the upper abdomen, in the lower abdomen. sheri Onset: The symptoms/episode began/occurred just prior to arrival, today. The patient presents to the emergency department with nausea, vomiting, diarrhea, abdominal pain, of the right upper quadrant, left upper quadrant, right lower quadrant and left lower quadrant. Onset: The symptoms/episode began/occurred today. Possible causes: unknown. The symptoms are aggravated by nothing. The symptoms are alleviated by nothing. Associated signs and symptoms: Pertinent positives: abdominal pain, diarrhea, nausea, vomiting. The symptoms do not radiate. Associated signs and symptoms: Pertinent positives: nausea and vomiting, diarrhea. Severity of pain: At its worst the pain was mild in the emergency department the pain has improved mildly. Historical: - Allergies: 16:42 Codeine; ko1 16:42 Morphine; ko1 - PMHx: 16:42 Depression; Diabetes - NIDDM; Hyperlipidemia; ko1 - PSHx: 16:42 colonoscopy; Partial colon removal; ko1 - Immunization history:: Adult Immunizations up to date. - Social history:: Smoking status: Patient denies any tobacco usage or history of. - Family history:: not pertinent. ROS: 15:46 Constitutional: Negative for fever, chills, and weight loss, Eyes: Negative for injury, sheri pain, redness, and discharge, ENT: Negative for injury, pain, and discharge, Neck: Negative for injury, pain, and swelling, Cardiovascular: Negative for chest pain, palpitations, and edema, Respiratory: Negative for shortness of breath, cough, wheezing, and pleuritic chest pain, Back: Negative for injury and pain, : Negative for injury, bleeding, discharge, and swelling, MS/Extremity: Negative for injury and deformity, Skin: Negative for injury, rash, and discoloration, Neuro: Negative for headache, weakness, numbness, tingling, and seizure, Psych: Negative for depression, anxiety, suicide ideation, homicidal ideation, and hallucinations, Allergy/Immunology: Negative for hives, rash, and allergies, Endocrine: Negative for neck swelling, polydipsia, polyuria, polyphagia, and marked weight changes, Hematologic/Lymphatic: Negative for swollen nodes, abnormal bleeding, and unusual bruising. 15:46 Abdomen/GI: Positive for abdominal pain, nausea and vomiting, diarrhea. Exam: 15:46 Constitutional: This is a well developed, well nourished patient who is awake, alert, sheri and in no acute distress. Head/Face: Normocephalic, atraumatic. Eyes: Pupils equal round and reactive to light, extra-ocular motions intact. Lids and lashes normal. Conjunctiva and sclera are non-icteric and not injected. Cornea within normal limits. Periorbital areas with no swelling, redness, or edema. ENT: Nares patent. No nasal discharge, no septal abnormalities noted. Tympanic membranes are normal and external auditory canals are clear. Oropharynx with no redness, swelling, or masses, exudates, or evidence of obstruction, uvula midline. Mucous membranes moist. Neck: Trachea midline, no thyromegaly or masses palpated, and no cervical lymphadenopathy. Supple, full range of motion without nuchal rigidity, or vertebral point tenderness. No Meningismus. Chest/axilla: Normal chest wall appearance and motion. Nontender with no deformity. No lesions are appreciated. Cardiovascular: Regular rate and rhythm with a normal S1 and S2. No gallops, murmurs, or rubs. Normal PMI, no JVD. No pulse deficits. Respiratory: Lungs have equal breath sounds bilaterally, clear to auscultation and percussion. No rales, rhonchi or wheezes noted. No increased work of breathing, no retractions or nasal flaring. Abdomen/GI: Soft, non-tender, with normal bowel sounds. No distension or tympany. No guarding or rebound. No evidence of tenderness throughout. Back: No spinal tenderness. No costovertebral tenderness. Full range of motion. Skin: Warm, dry with normal turgor. Normal color with no rashes, no lesions, and no evidence of cellulitis. MS/ Extremity: Pulses equal, no cyanosis. Neurovascular intact. Full, normal range of motion. Neuro: Awake and alert, GCS 15, oriented to person, place, time, and situation. Cranial nerves II-XII grossly intact. Motor strength 5/5 in all extremities. Sensory grossly intact. Cerebellar exam normal. Normal gait. Psych: Awake, alert, with orientation to person, place and time. Behavior, mood, and affect are within normal limits. 15:46 Musculoskeletal/extremity: Extremities: all appear grossly normal, with no appreciated pain with palpation, ROM: no acute changes, intact in all extremities, full active range of motion, full passive range of motion, Circulation is intact in all extremities. Sensation intact. Compartment Syndrome exam of affected extremity: is normal. DVT Exam: No signs of deep vein thrombosis. no pain, no swelling, no tenderness, negative Homans' sign noted on exam, no appreciated bluish discoloration, no erythema, no increased warmth. 15:54 ECG was reviewed by the Attending Physician. [facility] Vital Signs: 15:30 BP 141 / 80; Pulse 88; Resp 18; Temp 97.8(O); Pulse Ox 99% ; ko1 16:00 BP 156 / 83; Pulse 75; Resp 18; Pulse Ox 98% ; ko1 18:00 BP 133 / 69; Pulse 73; Resp 18; Pulse Ox 98% ; ko1 20:00 BP 139 / 72; Pulse 76; Resp 16; Pulse Ox 95% on R/A; jb4 MDM: 15:30 Patient medically screened. [facility] 15:49 Differential diagnosis: cholecystitis, pancreatitis, viral gastroenteritis, sheri gastroenteritis, Cholelithiasis, diverticulitis, gastritis, non-specific abd pain, pancreatitis. Data reviewed: vital signs, nurses notes, EMS record, lab test result(s), EKG, radiologic studies, CT scan, plain films. Consideration of Admission/Observation Escalation of care including admission/observation considered. I considered the following discharge prescriptions or medication management in the emergency department Medications were administered in the Emergency Department. See MAR. Independent interpretation of the following test(s) in the Emergency Department EKG: See my EKG interpretation above. Test considered but Not performed: Ultrasound NO ABD USG. Care significantly affected by the following chronic conditions: Diabetes, Hypertension, Obesity. Counseling: I had a detailed discussion with the patient and/or guardian regarding the historical points, exam findings, and any diagnostic results supporting the discharge/admit diagnosis, lab results, radiology results, the need for outpatient follow up, for definitive care, a family practitioner. 11/12 15:36 Order name: Basic Metabolic Panel; Complete Time: 16:50 [facility] 11/12 15:36 Order name: CBC with Diff; Complete Time: 16:50 [facility] 11/12 15:36 Order name: LFT's; Complete Time: 16:50 [facility] 11/12 15:36 Order name: Magnesium; Complete Time: 16:50 [facility] 11/12 15:36 Order name: NT PRO-BNP; Complete Time: 16:50 [facility] 11/12 15:36 Order name: PT-INR; Complete Time: 16:50 [facility] 11/12 15:36 Order name: Troponin HS; Complete Time: 16:50 [facility] 11/12 15:36 Order name: Lipase; Complete Time: 16:50 [facility] 11/12 15:36 Order name: Urinalysis w/ reflexes; Complete Time: 16:50 [facility] 11/12 19:17 Order name: Hemoglobin A1c [facility] 11/12 15:36 Order name: XRAY Chest (1 view); Complete Time: 16:50 [facility] 11/12 15:46 Order name: CT Abd/Pelvis - Without Contrast; Complete Time: 17:05 [facility] 11/12 17:13 Order name: Abdomen 1 View (KUB) XRAY 11/12 17:56 Order name: RAD [facility] 11/12 15:36 Order name: EKG; Complete Time: 15:37 [facility] 11/12 17:22 Order name: CONS Physician Consult [facility] 11/12 15:36 Order name: Cardiac monitoring; Complete Time: 15:53 [facility] 11/12 15:36 Order name: EKG - Nurse/Tech; Complete Time: 15:53 [facility] 11/12 15:36 Order name: IV Saline Lock; Complete Time: 15:53 [facility] 11/12 15:36 Order name: Labs collected and sent; Complete Time: 15:53 [facility] 11/12 15:36 Order name: O2 Per Protocol; Complete Time: 15:53 [facility] 11/12 15:36 Order name: O2 Sat Monitoring; Complete Time: 15:53 [facility] 11/12 17:05 Order name: PO challenge: WATER; Complete Time: 17:33 [facility] EC:54 Rate is 67 beats/min. Rhythm is regular. QRS [place] is Normal. AL interval is normal. QRS sheri interval is normal. QT interval is normal. No Q waves. T waves are Normal. No ST changes noted. Clinical impression: NSR w/ Non-specific ST/T Changes and No evidence of ischemia. Interpreted by me. Reviewed by me. Administered Medications: 15:53 Drug: Ondansetron IVP 4 mg Route: IVP; Site: right forearm; ko1 15:54 Drug: NS 0.9% IV 1000 ml Route: IV; Rate: 1 bolus; Site: right forearm; ko1 15:56 Drug: Famotidine IVP 20 mg Route: IVP; Site: right forearm; ko1 16:26 Drug: NS 0.9% IV 1000 ml Route: IV; Rate: 125 ml/hr; Site: right antecubital; ko1 16:53 Drug: NS 0.9% IV 1000 ml Route: IV; Rate: 1 bolus; Site: right forearm; ko1 17:19 Drug: Flomax PO 0.4 mg Route: PO; ko1 17:19 Drug: Rocephin IV 1 grams Route: IV; Rate: per protocol; Site: right forearm; ko1 17:19 Drug: Insulin Regular Human IVP 5 units {Co-Signature: [email or web address] (Kusum Sexton RN).} ko1 Route: IVP; Site: right forearm; 18:06 Drug: Insulin Glargine Sub-Q 25 units Route: Sub-Q; Site: right lower abdomen; ko1 Disposition Summary: 11/12/22 17:14 Hospitalization Ordered Hospitalization Status: Inpatient Admission sheri Provider: George Martinez cha Location: Telemetry/MedSurg (Inpatient)(11/12/22 17:14) sheri Condition: Stable(11/12/22 17:14) sheri Problem: new(11/12/22 17:14) sheri Symptoms: have improved(11/12/22 17:14) sheri Bed/Room Type: Standard sheri Room Assignment: 411(11/12/22 18:49) bd Diagnosis - Vomiting sheri - Diarrhea, unspecified(11/12/22 17:14) sheri - Hyperkalemia sheri - Unspecified kidney failure - CHRONIC sheri - Hydronephrosis with renal and ureteral calculous obstruction - 6 MM DISTAL RIGHT sheri URETER - Type 2 diabetes mellitus with hyperglycemia sheri Forms: - Medication Reconciliation Form sheri - SBAR form sheri - Leadership Thank You Letter sheri Signatures: Dispatcher [employer] Carolina Pantoja Corey, MD MD cha Oliver, Kathy, RN RN ko1 Kusum Sexton RN [email or web address] Corrections: (The following items were deleted from the chart) 17:12 17:12 Home sheri sheri 17:12 17:12 new sheri sheri 17:12 17:12 have improved sheri sheri 17:12 17:12 Stable sheri sheri 17:12 17:12 Nausea with vomiting, unspecified sheri sheri 17:12 17:12 Diarrhea, unspecified sheri sheri 17:12 17:12 Home sheri sheri 17:12 17:12 new sheri sheri 17:12 17:12 have improved sheri sheri 17:12 17:12 Stable sheri sheri 17:12 17:12 Nausea with vomiting, unspecified sheri sheri 17:12 17:12 Diarrhea, unspecified sheri sheri 18:49 17:14 sheri bd
[2022-11-12] MEDS ORDERED: ONDANSETRON 4 MG/2 ML VIAL IV PRN ×2 (17:20→18:45)
[2022-11-12] MEDS ORDERED: D10W 250 ML BAG IV PRN ×2 (17:22→18:45)
[2022-11-12] MEDS ORDERED: GLUCAGON 1 MG/VIAL IM PRN ×2 (17:22→18:45)
[2022-11-12] MEDS ORDERED: CEFTRIAXONE 1000 MG/VIAL ONE (17:27)
[2022-11-12] MEDS ORDERED: TAMSULOSIN 0.4 MG SR CAP ONE (17:27)
[2022-11-12] MEDS ORDERED: INSULIN -REGULAR HUMAN 50 UNIT/0.5 ML ML ONE (17:27)
--- NOTE | 2022-11-12 17:40 | P.HP ---
Certification for Inpatient Patient admitted to: Inpatient With expected LOS: >2 Midnights Practitioner: I am a practitioner with admitting privileges, knowledge of patient current condition, hospital course, and medical plan of care. Services: Services provided to patient in accordance with Admission requirements found in Title 42 Section 412.3 of the Code of Federal Regulations Patient History Date of Service: 11/12/22 Primary Care Provider: Eloisa Reason for admission: renal stone History of Present Illness: Patient is a pleasant lady with a history of dm2, with ckd stage 3, htn, hyperlipidemia. Some depression and pain. The patient started having nausea and dry heaving this afternoon. She came to the ER and was found to have a non occluded kidney stone. The patient came to the ER. Was found to have a renal stone, non occluding. She is doing a little better after receiving pain and nausea treatment Allergies No Known Allergies Allergy (Verified 12/24/16 02:39) Home Medications: Insulin Aspart [Novolog Penfill] 30 unit SQ BID 12/24/16 Insulin Detemir [Levemir*] 50 units SQ BID 12/24/16 Metformin HCl 1,000 mg PO BID 12/24/16 Amlodipine [Norvasc*] 5 mg PO DAILY 09/27/18 Betamethasone Valerate [Luxiq] 2 appl TD PRN 11/23/21 Fluoxetine HCl [Prozac] 20 mg PO DAILY 11/23/21 Gabapentin 100 mg PO TID 11/23/21 Lisinopril/Hydrochlorothiazide [Zestoretic 20-25 mg Tablet] 1 tab PO DAILY 11/23/21 Loratadine [Claritin*] 1 tab PO DAILY 11/23/21 Multivit-Min/Iron/Folic/Lutein [Centrum Silver Women Tablet] 1 tab PO DAILY 11/23/21 Pravastatin Sodium 20 mg PO BEDTIME 11/23/21 Tramadol HCl [Ultram] 50 mg PO Q6H PRN 11/23/21 Ciprofloxacin HCl [Cipro 500 MG Tablet] 500 mg PO BID #24 tab 11/25/21 - Past Medical/Surgical History Diabetic: Yes -: IDDM -: Hyperlipidemia -: Arrythmia -: anxiety -: diverticulitis -: ulcers (non-bleeding) -: seasonal allergies -: Partial Colectomy -: amp 4th toe rt foot. blister Psychosocial/ Personal History: Patient is . Her daughter has been living with her. - Family History Father -: Heart disease daughter -: Heart disease Notes: CHF in her 50's - Social History Alcohol use: No CD- Drugs: No Caffeine use: Yes Review of Systems 10-point ROS is otherwise unremarkable Gastrointestinal: Nausea, Abdominal Pain Physical Examination - Physical Exam General: Alert, In no apparent distress HEENT: Atraumatic, PERRLA, Mucous membr. moist/pink, EOMI, Sclerae nonicteric Neck: Supple, 2+ carotid pulse no bruit, No LAD, Without JVD or thyroid abnormality Respiratory: Clear to auscultation bilaterally, Normal air movement Cardiovascular: Regular rate/rhythm, Normal S1 S2 Gastrointestinal: Normal bowel sounds, No tenderness Musculoskeletal: No tenderness Integumentary: No rashes Neurological: Normal gait, Normal speech, Normal strength at 5/5 x4 extr, Normal tone, Normal affect Lymphatics: No axilla or inguinal lymphadenopathy - Studies Laboratory Data (last 24 hrs) 11/12/22 11/12/22 11/12/22 15:45 15:45 15:45 WBC 10.90 Hgb 10.8 L Hct 32.1 L Plt Count 136 L PT 11.1 INR 1.01 Sodium 134 L Potassium 5.5 H BUN 43 H Creatinine 1.61 H Glucose 330 H Magnesium 1.6 Total Bilirubin 0.6 AST 26 ALT 27 Alkaline Phosphatase 63 Lipase 73 Assessment and Plan - Problems (Diagnosis) (1) Renal stone Current Visit: Yes Status: Acute Plan: admit to the floor. Start the patient on fluids, zofran and pain management (2) Type 2 diabetes mellitus with diabetic chronic kidney disease Current Visit: Yes Status: Acute Plan: hold metformin. Continue fluids and insulin. She may be at her baseline. If her creatine is better tomorrow we can start the patient on fluids. Qualifiers: Chronic kidney disease stage 3 subtype: stage 3b (GFR 30-44) (3) HTN (hypertension) Current Visit: Yes Status: Acute Plan: restart amlodpine. If the patient creatine is stable. Will start the lisinopri-hctz in the am Qualifiers: Hypertension type: primary hypertension Qualified Code(s): I10 - Essential (primary) hypertension Discharge Plan: Home Plan to discharge in: 48 Hours - Advance Directives Does patient have a Living Will: Yes Does patient have a Durable POA for Healthcare: No - Code Status/Comfort Care Code Status Assessed: No Code Status: Full Code Physician Review: Patient Assessed, Agree with Above Assessment and Plan Critical Care: No Time Spent Managing Pts Care (In Minutes): 50
[2022-11-12] MEDS ORDERED: ACETAMINOPHEN 325 MG TABLET PO PRN (17:46)
[2022-11-12] MEDS ORDERED: MORPHINE 2 MG/ML SYR IV PRN (17:47)
--- NOTE | 2022-11-12 17:56 | RAD REPORT ---
EXAM DESCRIPTION: RAD - Abdomen 1 View (KUB) - 11/12/2022 5:48 pm CLINICAL HISTORY: ABD PAIN Pain COMPARISON: <Comparisons> FINDINGS: The bowel gas pattern is non-obstructive. No evidence of free air or pneumatosis. No suspi cious calcifications. No significant bony findings. Significant stool is present throughout the colon. IMPRESSION: Moderate stool throughout the colon.
[2022-11-12] MEDS: NA CHLORIDE 0.9% 1,000 ML IV SCH (18:00)
[2022-11-12] MEDS ORDERED: INSULIN GLARGINE 100 UNIT/ML SQ ONE (18:16)
[2022-11-12] MEDS ORDERED: ACETAMINOPHEN 500 MG TAB PO PRN (18:45)
[2022-11-12] MEDS ORDERED: MECLIZINE HCL 12.5 MG TAB PO PRN (18:45)
[2022-11-12] MEDS ORDERED: HYDRALAZINE HCL 20 MG/ML VIAL IV PRN (18:45)
[2022-11-12] MEDS ORDERED: HYDROMORPHONE HCL 0.5 MG/0.5 ML INJ IV PRN (18:45)
[2022-11-12] MEDS ORDERED: AMLODIPINE 5 MG TAB PO ONE (18:55)
[2022-11-12 20:49] VITALS: O2SAT 95
[2022-11-12] MEDS: FAMOTIDINE 20 MG/2 ML VIAL IV SCH (21:00)
[2022-11-12] MEDS: INSULIN -REGULAR HUMAN 50 UNIT/0.5 ML ML SQ SCH (21:00)
[2022-11-12] MEDS ORDERED: TAMSULOSIN 0.4 MG SR CAP PO SCH (21:00)
[2022-11-12] MEDS ORDERED: INSULIN -REGULAR HUMAN 50 UNIT/0.5 ML ML SQ SCH (21:00)
[2022-11-12] MEDS ORDERED: ATORVASTATIN 10 MG TAB PO SCH (21:00)
[2022-11-12 21:25] VITALS: BMI 26.6
[2022-11-13] MEDS: NA CHLORIDE 0.9% 1,000 ML IV SCH ×2 (02:15→08:14)
[2022-11-13 06:51] LABS: Absolute Lymphocytes (CBC) 1.6 K/uL (0.7-4.9); Hematocrit 26.8 % (36.0-45.0); Lymphocytes % 26.7 % (15.3-44.8); Platelets 133 thou/uL (152-406); RBC Red Blood Cell Count 3.04 M/uL (3.86-4.86)
[2022-11-13 07:11] LABS: ALT/SGPT 20 U/L (13-56); AST/SGOT 13 U/L (15-37); Albumin 3.1 g/dL (3.4-5.0); Alkaline Phosphatase 51 U/L (45-117); BUN Blood Urea Nitrogen 29 mg/dL (7-18); Bicarbonate 20 mEq/L (21-32); Bilirubin Total 0.3 mg/dL (0.2-1.0); Glomerular Filtration Rate 46 ml/min (=/>90); Glucose Level 115 mg/dL (74-106); Lipase 28 U/L (13-75); Potassium 4.4 mEq/L (3.5-5.1); Protein, Total 6.5 g/dL (6.4-8.2); Sodium Level 141 mEq/L (136-145)
[2022-11-13 07:14] LABS: Bilirubin Direct < 0.1 mg/dL (0-0.2); Bilirubin Indirect, Calculated ND mg/dL (0.2-0.8)
[2022-11-13] MEDS: INSULIN -REGULAR HUMAN 50 UNIT/0.5 ML ML SQ SCH ×2 (07:30→11:30)
[2022-11-13] MEDS: FAMOTIDINE 20 MG/2 ML VIAL IV SCH (08:11)
[2022-11-13] MEDS ORDERED: FLUOXETINE 20 MG CAP PO SCH (09:00)
[2022-11-13] MEDS ORDERED: ASPIRIN EC 81 MG TAB PO SCH (09:00)
[2022-11-13] MEDS ORDERED: CEFTRIAXONE 1,000 MG in NA CHLORIDE 0.9% 50 ML IVPB SCH (09:00)
[2022-11-13] MEDS ORDERED: FAMOTIDINE 20 MG/2 ML VIAL IV SCH (09:00)
--- NOTE | 2022-11-13 09:36 | RAD REPORT ---
EXAM DESCRIPTION: RAD - Abdomen 1 View (KUB) - 11/13/2022 8:15 am CLINICAL HISTORY: RIGHT DISTAL STONE COMPARISON: Abdomen 1 View (KUB) dated 11/12/2022; Abdomen Pelvis Wo Contrast dated 11/12/2022 TECHNIQUE: Single AP view of the abdomen. FINDINGS: Nonobstructive bowel gas pattern. No air-fluid levels, free air, or pneumatosis. Stable punctate calcific foci in the pelvis. These are overall stable on radiographs, and 1 of the ri ght sided foci may represent the calculus seen on prior CT. No other suspicious calcifications. No significant bony abnormality. IMPRESSION: Stable pelvic calcific foci.
--- NOTE | 2022-11-13 12:45 | P.PN ---
Subjective Date of Service: 11/13/22 Primary Care Provider: Eloisa Chief Complaint: renal stone Subjective: Improving (no nausea or vomitting) Review of Systems 10-point ROS is otherwise unremarkable Physical Examination - Vital Signs Temperature: 98.8 F Blood Pressure: 158/78 Pulse: 69 Respirations: 14 Pulse Ox (%): 97 - Physical Exam General: Alert, In no apparent distress HEENT: Atraumatic, PERRLA, EOMI Neck: Supple, JVD not distended Respiratory: Clear to auscultation bilaterally, Normal air movement Cardiovascular: Regular rate/rhythm, Normal S1 S2 Gastrointestinal: Normal bowel sounds, No tenderness Musculoskeletal: No tenderness Integumentary: No rashes Neurological: Normal speech, Normal tone, Normal affect Lymphatics: No axilla or inguinal lymphadenopathy - Studies Laboratory Data (last 24 hrs) 11/12/22 11/12/22 11/12/22 15:45 15:45 15:45 WBC 10.90 Hgb 10.8 L Hct 32.1 L Plt Count 136 L PT 11.1 INR 1.01 Sodium 134 L Potassium 5.5 H BUN 43 H Creatinine 1.61 H Glucose 330 H Magnesium 1.6 Total Bilirubin 0.6 AST 26 ALT 27 Alkaline Phosphatase 63 Lipase 73 Assessment And Plan - Current Problems (Diagnosis) (1) Renal stone Current Visit: Yes Status: Acute Plan: admit to the floor. Start the patient on fluids, zofran and pain management 11/12 will start feeding the patient. If no nausea we can safely discharge her for fo llow up (2) Type 2 diabetes mellitus with diabetic chronic kidney disease Current Visit: Yes Status: Acute Plan: hold metformin. Continue fluids and insulin. She may be at her baseline. If her creatine is better tomorrow we can start the patient on fluids. Qualifiers: Chronic kidney disease stage 3 subtype: stage 3b (GFR 30-44) (3) HTN (hypertension) Current Visit: Yes Status: Acute Plan: restart amlodpine. If the patient creatine is stable. Will start the lisinopri-hctz in the am Qualifiers: Hypertension type: primary hypertension Qualified Code(s): I10 - Essential (primary) hypertension Discharge Plan: Home Plan to discharge in: 24 Hours - Code Status/Comfort Care Code Status Assessed: No Physician Review: Patient Assessed, Agree with Above Assessment and Plan Critical Care: No Time Spent Managing PTS Care (In Minutes): 20
[2022-11-13 16:24] VITALS: BP 137/61; TEMP 98.3
--- NOTE | 2022-11-13 17:30 | EKG ---
Test Date: 2022-11-12 Test Time: 15:50:04 Air Bag Curer: BJ MEASUREMENT RESULTS: Intervals: Rate: 67 LA: 198 QRSD: 74 QT: 418 QTc: 441 [place]: P: 78 LA: 198 QRS: -2 T: 62 INTERPRETIVE STATEMENTS: Normal sinus rhythm Low voltage QRS Cannot rule out Anterior infarct, age undetermined Abnormal ECG Compared to ECG 11/23/2021 02:16:14 Low QRS voltage now present Myocardial infarct finding now present Electronically Signed On 11-13-22 17:27:39 CDT by Jaun Osei
--- NOTE | 2022-11-14 08:43 | P.DS ---
Admission Date: 11/12/22 Discharge Date: 11/14/22 Primary Care Provider: Eloisa Disposition: ROUTINE DISCHARGE Discharge Condition: FAIR Reason for Admission: renal stone - Problems (1) Renal stone Status: Acute (2) Type 2 diabetes mellitus with diabetic chronic kidney disease Status: Acute Qualifiers: Chronic kidney disease stage 3 subtype: stage 3b (GFR 30-44) (3) HTN (hypertension) Status: Acute Qualifiers: Hypertension type: primary hypertension Qualified Code(s): I10 - Essential (primary) hypertension Brief History of Present Illness: Patient is a pleasant lady with a history of dm2, with ckd stage 3, htn, hyperlipidemia. Some depression and pain. The patient started having nausea and dry heaving this afternoon. She came to the ER and was found to have a non occluded kidney stone. The patient came to the ER. Was found to have a renal stone, non occluding. She is doing a little better after receiving pain and nausea treatment Hospital Course: for accoutnt visit [id number] Patient was able to tolerate food and wished to go home. Discharged to follow up with her PCP and outpatient urology referral Vital Signs/Physical Exam: Temp Pulse Resp BP Pulse Ox 98.3 F 63 15 137/61 97 11/13/22 16:00 11/13/22 16:00 11/13/22 16:00 11/13/22 16:00 11/13/22 16:00 General: Alert, In no apparent distress HEENT: Atraumatic, PERRLA, EOMI Neck: Supple, JVD not distended Respiratory: Clear to auscultation bilaterally, Normal air movement Cardiovascular: Regular rate/rhythm, Normal S1 S2 Gastrointestinal: Normal bowel sounds, No tenderness Musculoskeletal: No tenderness Integumentary: No rashes Neurological: Normal speech, Normal tone, Normal affect Lymphatics: No axilla or inguinal lymphadenopathy Laboratory Data at Discharge: WBC 6.10 thou/uL (4.3-10.9) 11/13/22 06:37 Hgb 9.2 g/dL (12.0-15.0) L D 11/13/22 06:37 Hct 26.8 % (36.0-45.0) L 11/13/22 06:37 Plt Count 133 thou/uL (152-406) L 11/13/22 06:37 PT 11.1 SECONDS (9.5-12.5) 11/12/22 15:45 INR 1.01 11/12/22 15:45 Sodium 141 mEq/L (136-145) D 11/13/22 06:37 Potassium 4.4 mEq/L (3.5-5.1) D 11/13/22 06:37 BUN 29 mg/dL (7-18) H 11/13/22 06:37 Creatinine 1.22 mg/dL (0.55-1.02) H 11/13/22 06:37 Glucose 115 mg/dL (74-106) H 11/13/22 06:37 Magnesium 1.6 mg/dL (1.6-2.4) 11/12/22 15:45 Total Bilirubin 0.3 mg/dL (0.2-1.0) 11/13/22 06:37 AST 13 U/L (15-37) L 11/13/22 06:37 ALT 20 U/L (13-56) 11/13/22 06:37 Alkaline Phosphatase 51 U/L (45-117) 11/13/22 06:37 Lipase 28 U/L (13-75) 11/13/22 06:37 Home Medications: Amlodipine [Norvasc*] 5 mg PO DAILY 11/12/22 Aspirin Chewable [Aspirin Chewable*] 81 mg PO DAILY 11/12/22 Betamethasone Valerate 2 g TOP SEECOM 11/12/22 Codeine/APAP [Tylenol #3*] 1 tab PO Q4HP PRN 11/12/22 Cyanocobalamin [Vitamin B-12*] 1 tab PO DAILY 11/12/22 Diclofenac 1% Gel 4 g TOP QID 11/12/22 Ferrous Sulfate [Ferrous Sulfate*] 325 mg PO BID 11/12/22 Fluoxetine HCl [Prozac] 20 mg PO DAILY 11/12/22 Fluticasone [Flonase 50MCG Nasal [place]*] 1 spr NS DAILY 11/12/22 Gabapentin 200 mg PO BID 11/12/22 Lidocaine 5% [Lidocaine HCl] 5 g TOP BIDP PRN 11/12/22 Lisinopril/Hydrochlorothiazide [Lisinopril-Hctz 20-25 mg Tab] 1 tab PO DAILY 11/12/22 Meclizine HCl 25 mg PO TIDP PRN 11/12/22 Metformin HCl [Metformin HCl ER] 1,000 mg PO BID 11/12/22 Multivit-Min/Iron/Folic/Lutein [Centrum Silver Women Tablet] 1 tab PO DAILY 11/12/22 Pravastatin Sodium 20 mg PO BEDTIME 11/12/22 Diet: ADA Activity: Ad bonny Followup: Unknown,U [Primary Care Provider] - Physician Review: Patient Assessed, Agree with Above Assessment and Plan Time spent managing pt's care (in minutes): 35
== END 2022-11-13 17:40 | disposition home or self-care (01) | DRG 694 ==
LOC: ER 15:03 → ERHOLD 17:17 → 4TH 19:51
PROVIDERS: ADMIT Internal Medicine; ATTEND Internal Medicine
DX: N20.0 Calculus of kidney (principal); E11.22 Type 2 diabetes mellitus with diabetic chronic kidney disease; E11.65 Type 2 diabetes mellitus with hyperglycemia; I12.9 Hypertensive chronic kidney disease with stage 1 through stage 4 chronic kidney disease, or unspecified chronic kidney disease; N18.32 Chronic kidney disease, stage 3b; E78.5 Hyperlipidemia, unspecified; E87.5 Hyperkalemia; F32.A Depression, unspecified; F41.9 Anxiety disorder, unspecified; I49.9 Cardiac arrhythmia, unspecified; Z79.4 Long term (current) use of insulin; Z79.84 Long term (current) use of oral hypoglycemic drugs; Z79.899 Other long term (current) drug therapy; Z88.5 Allergy status to narcotic agent; Z90.49 Acquired absence of other specified parts of digestive tract; Z89.421 Acquired absence of other right toe(s); Z82.49 Family history of ischemic heart disease and other diseases of the circulatory system
CPT/HCPCS: 36415; 71045; 74018; 74176; 80048; 80076; 81001; 82947; 83036; 83690; 83735; 83880; 84443; 84484; 85025; 85610; 93005; 96372; 96374; 96375; 99285; J0696; J1815; J2405; J7030

== ENCOUNTER 2022-11-13 22:24 | Inpatient (IN) | payer OTHER ==
--- OUTSIDE RECORDS SUMMARY | 2022-11-13 22:49 | XMS REPORT | Continuity of Care Document ---
:1945 Author Organization [facility] t Address [address] [place] [address] [place] [id number] Care Team Providers Name Role Phone Felicia Worthington MD Primary Care Physician PETTY CALLOWAY Attending Clinician Unavailable FELICIA WORTHINGTON Attending Clinician Unavailable FLORENCIA BLACK Attending Clinician Unavailable FLORENCIA BLACK Attending Clinician Unavailable Nakul Villanueva PTA Attending Clinician Unavailable Felicia Worthington MD Attending Clinician Heidy Villanueva PTA Attending Clinician Unavailable María Bautista PT Attending Clinician Unavailable 2, [facility] Attending Clinician Unavailable Doctor Unassigned, [place] Attending Clinician Unavailable German Paz Attending Clinician Pob, [facility] Main Attending Clinician Unavailable [facility] Attending Clinician Unavailable LILIANA MITCHELL Attending Clinician Unavailable Liliana Mitchell MD Attending Clinician AVE CARSON Attending Clinician Unavailable Mel PRATHER, Mary Attending Clinician JAKE GARCIA Attending Clinician Unavailable Petty Calloway MD Attending Clinician Ebrahim WEIGHT CONTROL ENGINEER, Rania Attending Clinician Unknown, Attending Attending Clinician Unavailable ROB POSADAS Attending Clinician Unavailable 1, [facility] Attending Clinician Unavailable MARY RAMÍREZ Attending Clinician Unavailable JOSUÉ VERDUGO Attending Clinician Unavailable Only, [facility] Test Attending Clinician Unavailable [place] WEIGHT CONTROL ENGINEER, Lisette Attending Clinician LISETTE HERNDON Attending Clinician Unavailable [place] WEIGHT CONTROL ENGINEER, Xin Attending Clinician Green WEIGHT CONTROL ENGINEER, Angela Attending Clinician GREEN ANGELA Attending Clinician Unavailable Med, Medicare Wellness Ang Fam Attending Clinician Unavailab le [place]i WEIGHT CONTROL ENGINEER, Omayemi Attending Clinician XIN ALVARADO Attending Clinician Unavailable Dannie Conroy MD Attending Clinician DEN NUÑEZ Attending Clinician Unavailable Nurse, [facility] Pob Immunization Attending Clinician Unavailable Den Nuñez DO Attending Clinician Alex Belcher MD Attending Clinician Nicky TORRES, Tamiko L Attending Clinician Unavailable LB BENAVIDES Attending Clinician Unavailable Lb Benavides MD Attending Clinician Gramm WEIGHT CONTROL ENGINEER, Marleen Atkins Attending Clinician ALEX BELCHER Attending [...] Effective Date Expiration Date Cornelia [place] MANAGED [id number] 2020 MEDICARE PPO-JEM 00:00:00 Problems Condition Condition [...] of colon 8-24 it y of 00:00: [place] [facility] Vaginal Vaginal Disease Active [facility] yeast yeast 11-20 [place] [facility] [place] Chronic Chronic Disease Active [facility] allergic allergic 08-07 ity of rhinitis rhinitis 00:00: [place] [facility] Multiple Multiple Disease Active Unive rs adenomatou adenomatou 2 it y of s polyps s polyps 00:00: [place] [facility] Obesity Obesity Disease Active Univers (BMI (BMI 2-09 ity of 30-39.9) 30-39.9) 00:00: [place] [facility] Status Status Disease Active Univers post right post right 05-08 it y of hemicolect hemico[place] Polyp, Polyp, Disease Active Univers colonic colonic 12-18 ity of 00:00: [place] [facility] Polyp of Polyp of Disease Active Overview: Un [place] colon, colon, 9-13 Formattin ity of unspecifie unspecifie 00:00: g of this [place] d part of d part of 00 note Medi evert colon, colon, might be Branch unspecifie unspecifie different d type d type from the original. Added automatic ally from request for surgery [id number] History of History of Disease Active Overview : Univers colon colon 7-02 Formattin ity of polyps polyps 00:00: g of this [place] 00 note Medical might be Branch different from the original. 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 [place]:00: [place] 00 [place] Irregular Irregular Disease Active Uni vers heart beat heart beat 08-23 it y of 00:00: [place] [facility] Premature Premature Disease Active Uni vers ventricula ventricula 08-23 it y of r beat r beat 00:00: [place] [facility] Hypomagnes Hypomagnes Disease Active U nivers emia emia 08-23 ity of 00:00: [place] [facility] Premature Premature Disease Active Uni vers ventricula ventricula 08-23 it y of r beat r beat 00:00: [place] [facility] Diabetic Diabetic Disease Active Unive rs polyneurop polyneurop -20 it y of athy athy 00:00: [place] associated associated 00 Me dical with type with type Bran ch 2 diabetes 2 diabetes mellitus mellitus Grief Grief Disease Active Univers 4- ity of 00:00: [place] [facility] Abnormalit Abnormalit Disease Active U nivers y of gait y of gait 07-19 ity of 00:00: [place] [facility] Other Other Disease Active Univers specified specified 07-19 ity of extrapyram extrapyram 00:00: [place] idal and idal and 00 Medica l movement movement Branch disorders disorders Senile Senile Disease Active Univers osteoporos osteoporos 07-19 it y of is is 00:00: [place] [facility] Dyslipidem Dyslipidem Disease Active U nivers ia ia 8-17 ity of 00:00: [place] [facility] Panic Panic Disease Active 2018-03 Univers attack attack 2-11 ity of 00:00: [place] [facility] Diabetic Diabetic Disease Active 2018-03 Overview: Un [place] eye exam eye exam 2-04 Formattin ity of 00:00: g of this 00 note Medical might be Branch different from the original. Added automatic ally from request for surgery [id number] Type 2 Type 2 Disease Active 2018-03 [...] vaccine vaccine Breast Breast Disease Active 2018-03 [facility] cancer cancer 04-28 it[place] of screening screening [place] Medical mammogram mammogram Bran ch Need for Need for Disease Active 2018-03 Unive rs hepatitis hepatitis 04-28 ity of C C 00:00: [place] screening screening 00 Medi evert test test Branch Type 2 Type 2 Disease Active 2018-03 [facility] diabetes diabetes 04-28 ity of mellitus mellitus [...] Unive rs INGREDI 12-20 ity of 00:00: [place] 00 Medical Branch No Known DA Active [facility] 09[facility]14 [place] 00:00: [address] No Known DA Active U [facility] [place] 00:00: [address] Social History Social Habit Start Date Stop Date Quantity Comments Source History SDOH University o f Alcohol Std Drinks [place] [facility] History SDOH University o f Alcohol Binge [place] [facility] History SDOH University o f Alcohol Comment [place] [facility] Gender identity [facility] [place] [facility] [place] Sexual orientation [facility]iver [facility]ity [facility] [place] [facility] [place] Alcohol intake 2022-10-04 2022-10-04 Lifetime University of 00:00:00 00:00:00 non-drinker [place] [facility] (finding) Branch History of Social 2022-08-28 2022-08-28 Univers ity of function 00:00:00 00:00:00 [facility] [place] [facility] Exposure to 2022-07-20 2022-07-30 Not sure University SARS-CoV-2 (event) 00:00:00 11:23:00 [facility] [place] [facility] Tobacco use and 2021-11-20 2021-11-20 Smokeless Universit y of exposure 00:00:00 00:00:00 tobacco non-user [facility] dical Branch History SDOH 2018-09-08 2018-09-08 1 University o f Alcohol Frequency 00:00:00 00:00:00 [facility] [place] Sex [birth year] Universit y of 00:00:00 00:00:00 [facility] [place] [facility] Smoking Status Start Date Stop Date Source Never smoked tobacco [facility] Medications Ordered Filled Start Stop Current Ordering Indication Dosage Frequency Signature Comments Components Source Medication Medication Date Date Medication? Clinician (SIG) Name Name loratadine 2022- No 10mg Take 10 mg Univers (CLARITIN 7 07-07 by mouth ity o f ORAL) 16:19: 00:00 daily. As [place] 59 :00 needed Medical Branch loratadine 2022- No 10mg Take 10 mg Univers (CLARITIN 7 07-07 by mouth ity o f ORAL) 16:19: 00:00 daily. As [place] 59 :00 needed [facility] Branch loratadine 2022- No 10mg Take 10 mg Univers (CLARITIN 7 07-07 by mouth ity o f ORAL) 16:19: 00:00 daily. As [place] 59 :00 needed Medical Branch multivit-mi Yes 1{tbl} Take 1 Un mila n/iron/foli 7-07 tablet by ity of c/lutein 16:03: mouth [place] (CENTRUM 20 daily. Medical [place] Branch WOMEN ORAL) FIBER Yes 1{tbl} Take 1 Univers CHOICE ORAL 7-07 tablet by ity of 16:03: mouth. [place] 20 Medical Branch multivit-mi Yes 1{tbl} Take 1 Un [place] n/iron/foli 7-07 tablet by ity of c/lutein 16:03: mouth [place] (CENTRUM 20 daily. Medical [place] WOMEN ORAL) FIBER Yes 1{tbl} Take 1 Univers CHOICE ORAL 7-07 tablet by ity of 16:03: mouth. [address] Yes 1{tbl} Take 1 Un mila n/iron/foli 7-07 tablet by ity of c/lutein 16:03: mouth [place] (CENTRUM 20 daily. Medical [place] WOMEN ORAL) FIBER Yes 1{tbl} Take 1 Univers CHOICE ORAL 7-07 tablet by ity of 16:03: mouth. [address] Yes 1{tbl} Take 1 Un mila n/iron/foli 7-07 tablet by ity of c/lutein 16:03: mouth [place] (CENTRUM 20 daily. Medical [place] WOMEN ORAL) FIBER Yes 1{tbl} Take 1 Univers CHOICE ORAL 7-07 tablet by ity of 16:03: mouth. [address] Yes 1{tbl} Take 1 Un mila n/iron/foli 7-07 tablet by ity of c/lutein 16:03: mouth [place] (CENTRUM 20 daily. Medical [place] WOMEN ORAL) FIBER Yes 1{tbl} Take 1 Univers CHOICE ORAL 7-07 tablet by ity of 16:03: mouth. [address] Yes 1{tbl} Take 1 Un mila n/iron/foli 7-07 tablet by ity of c/lutein 16:03: mouth [place] (CENTRUM 20 daily. Medical [place] WOMEN ORAL) FIBER Yes 1{tbl} Take 1 Univers CHOICE ORAL 7-07 tablet by ity of 16:03: mouth. [address] Yes 1{tbl} Take 1 Un mila n/iron/foli 7-07 tablet by ity of c/lutein 16:03: mouth [place] (CENTRUM 20 daily. Medical [place] WOMEN ORAL) FIBER Yes 1{tbl} Take 1 Univers CHOICE ORAL 7-07 tablet by ity of 16:03: mouth. [address] Yes 1{tbl} Take 1 Un mila n/iron/foli 7-07 tablet by ity of c/lutein 16:03: mouth [place] (CENTRUM 20 daily. Medical SILVER Branch WOMEN ORAL) FIBER Yes 1{tbl} Take 1 Univers CHOICE ORAL 7-07 tablet by ity of 16:03: mouth. [address] Yes 1{tbl} Take 1 Un mila n/iron/foli 7-07 tablet by ity of c/lutein 16:03: mouth [place] (CENTRUM 20 daily. Medical [place] WOMEN ORAL) FIBER Yes 1{tbl} Take 1 Univers CHOICE ORAL 7-07 tablet by ity of 16:03: mouth. [address] Yes 1{tbl} Take 1 Un mila n/iron/foli 7-07 tablet by ity of c/lutein 16:03: mouth [place] (CENTRUM 20 daily. Medical SILVER Branch WOMEN ORAL) FIBER Yes 1{tbl} Take 1 Univers CHOICE ORAL 7-07 tablet by ity of 16:03: mouth. [address] Yes 1{tbl} Take 1 Un mila n/iron/foli 7-07 tablet by ity of c/lutein 16:03: mouth [place] (CENTRUM 20 daily. Medical SILVER Branch WOMEN ORAL) FIBER Yes 1{tbl} Take 1 Univers CHOICE ORAL 7-07 tablet by ity of 16:03: mouth. [address] Yes 1{tbl} Take 1 Un mila n/iron/foli 7-07 tablet by ity of c/lutein 16:03: mouth [place] (CENTRUM 20 daily. Medical [place] WOMEN ORAL) FIBER Yes 1{tbl} Take 1 Univers CHOICE ORAL 7-07 tablet by ity of 16:03: mouth. [address] Yes 1{tbl} Take 1 Un mila n/iron/foli 7-07 tablet by ity of c/lutein 16:03: mouth [place] (CENTRUM 20 daily. Medical SILVER Branch WOMEN ORAL) FIBER Yes 1{tbl} Take 1 Univers CHOICE ORAL 7-07 tablet by ity of 16:03: mouth. [address] Branch multivit-mi Yes 1{tbl} Take 1 Un [place] n/iron/foli 7-07 tablet by ity of c/lutein 16:03: mouth [place] (CENTRUM 20 daily. Medical SILVER Branch WOMEN ORAL) FIBER Yes 1{tbl} Take 1 Univers CHOICE ORAL 7-07 tablet by ity of 16:03: mouth. [address] Branch sodium 2022- No 15g 15 [...] (0.1 ity of human 00:30: 00:47 Units/kg [place] (HUMULIN R) 00 :00 ?94.3 kg), Me [...] ity of bolus 00:21: PRN - SEE [place] infusion 08 INSTRUCTIO Medic al 250 mL [...] Indication s: acute pain levoFLOXaci 2023-0 Yes [id number] 500mg Take 1 Univers n 6-16 tablet [...] Indication s: acute pain levoFLOXaci 2023-0 Yes [id number] 500mg Take 1 Univers n 6-16 tablet [...] Indication s: acute pain levoFLOXaci 2023-0 Yes [id number] 500mg Take 1 Univers n 6-16 tablet [...] Indication s: acute pain levoFLOXaci 2023-0 Yes [id number] 500mg Take 1 Univers n 6-16 tablet [...] Indication s: acute pain levoFLOXaci 2023-0 Yes [id number] 500mg Take 1 Univers n 6-16 tablet [...] Indication s: acute pain levoFLOXaci 2023-0 Yes [id number] 500mg Take 1 Univers n 6-16 tablet [...] Indication s: acute pain levoFLOXaci 2023-0 Yes [id number] 500mg Take 1 Univers n 6-16 tablet [...] Indication s: acute pain levoFLOXaci 2023-0 Yes [id number] 500mg Take 1 Univers n 6-16 tablet [...] Indication s: acute pain levoFLOXaci 2023-0 Yes [id number] 500mg Take 1 Univers n 6-16 tablet [...] s: acute pain levoFLOXaci 2022-0 202- No [id number] 500mg Take 1 Univers n 6-16 -07 tablet by ity of (LEVAQUIN) 00:00: 00:00 mouth [place] 500 mg 00 :00 every 24 Medical tablet (twenty-fo Branch ur) hours. levoFLOXaci 2022-0 2022- No [id number] 500mg Take 1 Univers n 6-16 -07 tablet by ity of (LEVAQUIN) 00:00: 00:00 mouth [place] 500 mg 00 :00 every 24 Medical tablet (twenty-fo Branch ur) hours. levoFLOXaci 2022-0 202- No [id number] 500mg Take 1 Univers n 6-16 -07 tablet by ity of (LEVAQUIN) 00:00: 00:00 mouth [place] 500 mg 00 :00 every 24 Medical tablet (twenty-fo Branch ur) hours. meclizine 2022-0 Yes [id number] 25mg Take 1 U nivers 25 mg 6-01 tablet by ity of tablet 00:00: mouth 3 [place] 00 (three) Medical times Branch daily as needed for Dizziness. Diclofenac 2022-0 Yes [id number] Apply to Univers Sodium 6-01 area(s) 4 ity of (VOLTAREN) 00:00: (four) [place] 1 % gel 00 times Medical daily. Branch Apply 4 g qid Lidocaine 5 Yes [id number] Apply to Univers % cream 6-01 area(s) 2 ity of 00:00: (two) [place] 00 times Medical daily as Branch needed for Pain (scale 4-6). Apply 5g to affected areas BID PRN pseudoephed 0 Yes [id number] 120mg Take 1 Univers rine SA 6-01 tablet by ity of (SUDAFED 12 00:00: [place] HOUR) 120 00 the Medical mg SR morning Branch tablet and 1 tablet in the evening. gabapentin Yes [id number] 200mg Take 2 Univers 100 mg 6-01 capsules ity of capsule 00:00: by mouth [place] 00 in the Medical morning Branch and 2 capsules in the evening. lisinopriL- Yes [id number] 1{tbl} Take 1 Univers hydrochloro 6-01 tablet by ity of thiazide 00:00: mouth in [place] 20-25 mg 00 the Medical per tablet morning. Branc h FLUoxetine 0 Yes [id number] 20mg Take 1 Uni vers 20 mg 6-01 tablet by ity of tablet 00:00: mouth in [place] 00 the Medical morning. Branch Insulin Yes [id number] 50U inject 50 Univers Detemir 6-01 Units ity of (LEVEMIR 00:00: [place] FLEXTOUCH 00 skin in Medical U-100 the Branch INSULN) 100 morning unit/mL (3 and 50 mL) Units in injection the evening. inject with meals. metformin Yes [id number] TAKE 2 U nivers ER 500 mg 6-01 TABLETS BY ity of 24 hr 00:00: MOUTH 2 [place] tablet 00 TIMES Medical DAILY WITH Branch MEALS. insulin Yes [id number] INJECT Uni vers aspart 6-01 10-30 ity of U-100 00:00: UNITS [place] (NOVOLOG 00 UNDER THE Medica l FLEXPEN SKIN 3 Branch U-100 (THREE) INSULIN) TIMES 100 unit/mL DAILY (3 mL) BEFORE injection MEALS. meclizine 0 Yes [id number] 25mg Take 1 U nivers 25 mg 6-01 tablet by ity of tablet 00:00: mouth 3 [place] 00 (three) Medical times Branch daily as needed for Dizziness. Diclofenac 0 Yes [id number] Apply to Univers Sodium 6- area(s) 4 ity of (VOLTAREN) 00:00: (four) [place] 1 % gel 00 times Medical daily. Branch Apply 4 g qid Lidocaine 5 0 Yes [id number] Apply to Univers % cream 6-01 area(s) 2 ity of 00:00: (two) [place] 00 times Medical daily as Branch needed for Pain (scale 4-6). Apply 5g to affected areas BID PRN pseudoephed 0 Yes [id number] 120mg Take 1 Univers rine SA 6-01 tablet by ity of (SUDAFED 12 00:00: [place] HOUR) 120 00 the Medical mg SR morning Branch tablet and 1 tablet in the evening. gabapentin 0 Yes [id number] 200mg Take 2 Univers 100 mg 6- capsules ity of capsule 00:00: by mouth [place] 00 in the Medical morning Branch and 2 capsules in the evening. lisinopriL- 0 Yes [id number] 1{tbl} Take 1 Univers hydrochloro 6- tablet by ity of thiazide 00:00: mouth in [place] 20-25 mg 00 the Medical per tablet morning. Branc h FLUoxetine 0 Yes [id number] 20mg Take 1 Uni vers 20 mg 6-01 tablet by ity of tablet 00:00: mouth in [place] 00 the Medical morning. Branch Insulin Yes [id number] 50U inject 50 Univers Detemir 6-01 Units ity of (LEVEMIR 00:00: [place] FLEXTOU[place] 00 skin in Medical U-100 the Branch INSULN) 100 morning unit/mL (3 and 50 mL) Units in injection the evening. inject with meals. metformin Yes [id number] TAKE 2 U nivers ER 500 mg 6-01 TABLETS BY ity of 24 hr 00:00: MOUTH 2 [place] tablet 00 TIMES Medical DAILY WITH Branch MEALS. insulin Yes [id number] INJECT Uni vers aspart 6-01 10-30 ity of U-100 00:00: UNITS [place] (NOVOLOG 00 UNDER THE Medica l FLEXPEN SKIN 3 Branch U-100 (THREE) INSULIN) TIMES 100 unit/mL DAILY (3 mL) BEFORE injection MEALS. meclizine Yes [id number] 25mg Take 1 U nivers 25 mg 6-01 tablet by ity of tablet 00:00: mouth 3 [place] 00 (three) Medical times Branch daily as needed for Dizziness. Diclofenac Yes [id number] Apply to Univers Sodium 6-01 area(s) 4 ity of (VOLTAREN) 00:00: (four) [place] 1 % gel 00 times Medical daily. Branch Apply 4 g qid Lidocaine 5 0 Yes [id number] Apply to Univers % cream 6- area(s) 2 ity of 00:00: (two) [place] 00 times Medical daily as Branch needed for Pain (scale 4-6). Apply 5g to affected areas BID PRN pseudoephed 0 Yes [id number] 120mg Take 1 Univers rine SA 6-01 tablet by ity of (SUDAFED 12 00:00: [place] H[place]) 120 00 the Medical mg SR morning Branch tablet and 1 tablet in the evening. gabapentin Yes [id number] 200mg Take 2 Univers 100 mg 6- capsules ity of capsule 00:00: by mouth [place] 00 in the Medical morning Branch and 2 capsules in the evening. lisinopriL- Yes [id number] 1{tbl} Take 1 Univers hydrochloro 6-01 tablet by ity of thiazide 00:00: mouth in [place] 20-25 mg 00 the Medical per tablet morning. Branc h FLUoxetine Yes [id number] 20mg Take 1 Uni vers 20 mg 6-01 tablet by ity of tablet 00:00: mouth in [place] 00 the Medical morning. Branch Insulin Yes [id number] 50U inject 50 Univers Detemir 6-01 Units ity of (LEVEMIR 00:00: [place] FLEXTOU[place] 00 skin in Medical U-100 the Branch INSULN) 100 morning unit/mL (3 and 50 mL) Units in injection the evening. inject with meals. metformin Yes [id number] TAKE 2 U nivers ER 500 mg 6-01 TABLETS BY ity of 24 hr 00:00: MOUTH 2 [place] tablet 00 TIMES Medical DAILY WITH Branch MEALS. insulin Yes [id number] INJECT Uni vers aspart 6-01 10-30 ity of U-100 00:00: UNITS [place] (NOVOLOG 00 UNDER THE Medica l FLEXPEN SKIN 3 Branch U-100 (THREE) INSULIN) TIMES 100 unit/mL DAILY (3 mL) BEFORE injection MEALS. meclizine Yes [id number] 25mg Take 1 U nivers 25 mg 6-01 tablet by ity of tablet 00:00: mouth 3 [place] 00 (three) Medical times Branch daily as needed for Dizziness. Diclofenac 0 Yes [id number] Apply to Univers Sodium 6-01 area(s) 4 ity of (VOLTAREN) 00:00: (four) [place] 1 % gel 00 times Medical daily. Branch Apply 4 g qid Lidocaine 5 0 Yes [id number] Apply to Univers % cream 6-01 area(s) 2 ity of 00:00: (two) [place] 00 times Medical daily as Branch needed for Pain (scale 4-6). Apply 5g to affected areas BID PRN pseudoephed 0 Yes [id number] 120mg Take 1 Univers rine SA 6-01 tablet by ity of (SUDAFED 12 00:00: [place] HOUR) 120 00 the Medical mg SR morning Branch tablet and 1 tablet in the evening. gabapentin 0 Yes [id number] 200mg Take 2 Univers 100 mg 6-01 capsules ity of capsule 00:00: by mouth [place] 00 in the Medical morning Branch and 2 capsules in the evening. lisinopriL- Yes [id number] 1{tbl} Take 1 Univers hydrochloro 6-01 tablet by ity of thiazide 00:00: mouth in [place] 20-25 mg 00 the Medical per tablet morning. Bran h FLUoxetine 0 Yes [id number] 20mg Take 1 Uni vers 20 mg 6-01 tablet by ity of tablet 00:00: mouth in [place] 00 the Medical morning. Branch Insulin 0 Yes [id number] 50U inject 50 Univers Detemir 6-01 Units ity of (LEVEMIR 00:00: [place] FLEXT[place] 00 skin in Medical U-100 the Branch INSULN) 100 morning unit/mL (3 and 50 mL) Units in injection the evening. inject with meals. metformin Yes [id number] TAKE 2 U nivers ER 500 mg 6-01 TABLETS BY ity of 24 hr 00:00: MOUTH 2 [place] tablet 00 TIMES Medical DAILY WITH Branch MEALS. insulin Yes [id number] INJECT Uni vers aspart 6- 10-30 ity of U-100 00:00: UNITS [place] (NOVOLOG 00 UNDER THE Medica l FLEXPEN SKIN 3 Branch U-100 (THREE) INSULIN) TIMES 100 unit/mL DAILY (3 mL) BEFORE injection MEALS. meclizine Yes [id number] 25mg Take 1 U nivers 25 mg 6- tablet by ity of tablet 00:00: mouth 3 [place] 00 (three) Medical times Branch daily as needed for Dizziness. Diclofenac Yes [id number] Apply to Univers Sodium 6- area(s) 4 ity of (VOLTAREN) 00:00: (four) [place] 1 % gel 00 times Medical daily. Branch Apply 4 g qid Lidocaine 5 Yes [id number] Apply to Univers % cream 6- area(s) 2 ity of 00:00: (two) [place] 00 times Medical daily as Branch needed for Pain (scale 4-6). Apply 5g to affected areas BID PRN pseudoephed Yes [id number] 120mg Take 1 Univers rine SA 6-01 tablet by ity of (SUDAFED 12 00:00: mouth [place] HOUR) 120 00 the Medical mg SR morning Branch tablet and 1 tablet in the evening. gabapentin 0 Yes [id number] 200mg Take 2 Univers 100 mg 6- capsules ity of capsule 00:00: by mouth [place] 00 in the Medical morning Branch and 2 capsules in the evening. lisinopriL- Yes [id number] 1{tbl} Take 1 Univers hydrochloro 6-01 tablet by ity of thiazide 00:00: mouth in [place] 20-25 mg 00 the Medical per tablet morning. Branc h FLUoxetine 0 Yes [id number] 20mg Take 1 Uni vers 20 mg 6-01 tablet by ity of tablet 00:00: mouth in [place] 00 the Medical morning. Branch Insulin Yes [id number] 50U inject 50 [facility] Detemir 6-01 Units ity of (LEVEMIR 00:00: [place] FLE[place] 00 skin in Medical U-100 the Branch INSULN) 100 morning unit/mL (3 and 50 mL) Units in injection the evening. inject with meals. metformin Yes [id number] TAKE 2 U nivers ER 500 mg - TABLETS BY ity of 24 hr 00:00: MOUTH 2 [place] tablet 00 TIMES Medical DAILY WITH Branch MEALS. insulin Yes [id number] INJECT Uni vers aspart 08-28 10-30 ity of U-100 00:00: UNITS [place] (NOVOLOG 00 UNDER THE Medica l FLEXPEN SKIN 3 Branch U-100 (THREE) INSULIN) TIMES 100 unit/mL DAILY (3 mL) BEFORE injection MEALS. meclizine Yes [id number] 25mg Take 1 U nivers 25 mg 6- tablet by ity of tablet 00:00: mouth 3 [place] 00 (three) Medical times Branch daily as needed for Dizziness. Diclofenac Yes [id number] Apply to Univers Sodium 08-28 area(s) 4 ity of (VOLTAREN) 00:00: (four) [place] 1 % gel 00 times Medical daily. Branch Apply 4 g qid Lidocaine 5 Yes [id number] Apply to Univers % cream 08-28 area(s) 2 ity of 00:00: (two) [place] 00 times Medical daily as Branch needed for Pain (scale 4-6). Apply 5g to affected areas BID PRN pseudoephed Yes [id number] 120mg Take 1 Univers rine SA - tablet by ity of (SUDAFED 12 00:00: [place] HOUR) 120 00 the Medical mg SR morning Branch tablet and 1 tablet in the evening. gabapentin Yes [id number] 200mg Take 2 Univers 100 mg 6- capsules ity of capsule 00:00: by mouth [place] 00 in the Medical morning Branch and 2 capsules in the evening. lisinopriL- 0 Yes [id number] 1{tbl} Take 1 Univers hydrochloro 6- tablet by ity of thiazide 00:00: mouth in [place] 20-25 mg 00 the Medical per tablet morning. Branc h FLUoxetine 0 Yes [id number] 20mg Take 1 Uni vers 20 mg 6- tablet by ity of tablet 00:00: mouth in [place] 00 the Medical morning. Branch Insulin Yes [id number] 50U inject 50 [facility] Detemir 6-01 Units ity of (LEVEMIR 00:00: [place] FLEXT[place] 00 skin in Medical U-100 the Branch INSULN) 100 morning unit/mL (3 and 50 mL) Units in injection the evening. inject with meals. metformin Yes [id number] TAKE 2 U nivers ER 500 mg 6- TABLETS BY ity of 24 hr 00:00: MOUTH 2 [place] tablet 00 TIMES Medical DAILY WITH Branch MEALS. insulin Yes [id number] INJECT [facility] vers aspart 08-28 10-30 ity of U-100 00:00: UNITS [place] (NOVOLOG 00 UNDER THE Medica l FLEXPEN SKIN 3 Branch U-100 (THREE) INSULIN) TIMES 100 unit/mL DAILY (3 mL) BEFORE injection MEALS. meclizine Yes [id number] 25mg Take 1 [facility] nivers 25 mg 6- tablet by ity of tablet 00:00: mouth 3 [place] 00 (three) Medical times Branch daily as needed for Dizziness. Diclofenac Yes [id number] Apply to [facility] Sodium - area(s) 4 ity of (VOLTAREN) 00:00: (four) [place] 1 % gel 00 times Medical daily. Branch Apply 4 g qid Lidocaine 5 Yes [id number] Apply to [facility] % cream 6-01 area(s) 2 ity of 00:00: (two) [place] 00 times Medical daily as Branch needed for Pain (scale 4-6). Apply 5g to affected areas BID PRN pseudoephed Yes [id number] 120mg Take 1 [facility] rine SA 6-01 tablet by ity of (SUDAFED 12 00:00: mouth in [place] HOUR) 120 00 the Medical mg SR morning Branch tablet and 1 tablet in the evening. gabapentin 0 Yes [id number] 200mg Take 2 [facility] 100 mg 6-01 capsules ity of capsule 00:00: by mouth [place] 00 in the Medical morning Branch and 2 capsules in the evening. lisinopriL- 0 Yes [id number] 1{tbl} Take 1 [facility] hydrochloro 6-01 tablet by ity of thiazide 00:00: mouth in [place] 20-25 mg 00 the Medical per tablet morning. Branc h FLUoxetine 0 Yes [id number] 20mg Take 1 [facility] vers 20 mg 6-01 tablet by ity of tablet 00:00: mouth in [place] 00 the Medical morning. Branch Insulin Yes [id number] 50U inject 50 [facility] Detemir 6-01 Units it[facility] of (LEVEMIR 00:00: [place] FLEXTOU[place] 00 skin in Medical U-100 the Branch INSULN) 100 morning unit/mL (3 and 50 mL) Units in injection the evening. inject with meals. metformin Yes [id number] TAKE 2 [facility] nivers ER 500 mg 6-01 TABLETS BY ity of 24 hr 00:00: MOUTH 2 [place] tablet 00 TIMES Medical DAILY WITH Branch MEALS. insulin Yes [id number] INJECT [facility] vers aspart 6- 10-30 ity of U-100 00:00: UNITS [place] (NOVOLOG 00 UNDER THE Medica l FLEXPEN SKIN 3 Branch U-100 (THREE) INSULIN) TIMES 100 unit/mL DAILY (3 mL) BEFORE injection MEALS. meclizine Yes [id number] 25mg Take 1 [facility] nivers 25 mg 6-01 tablet by ity of tablet 00:00: mouth 3 [place] 00 (three) Medical times Branch daily as needed for Dizziness. Diclofenac Yes [id number] Apply to [facility] Sodium 6- area(s) 4 ity of (VOLTAREN) 00:00: (four) [place] 1 % gel 00 times Medical daily. Branch Apply 4 g qid Lidocaine 5 2022-0 Yes [id number] Apply to [facility] % cream 6-01 area(s) 2 ity of 00:00: (two) [place] 00 times Medical daily as Branch needed for Pain (scale 4-6). Apply 5g to affected areas BID PRN gabapentin 2022-0 Yes [id number] 200mg Take 2 [facility] 100 mg 6-01 capsules ity of capsule 00:00: by mouth [place] 00 in the Medical morning Branch and 2 capsules in the evening. lisinopriL- 2022-0 Yes [id number] 1{tbl} Take 1 [facility] hydrochloro 6-01 tablet by ity of thiazide 00:00: mouth in [place] 20-25 mg 00 the Medical per tablet morning. Branc h FLUoxetine 2022-0 Yes [id number] 20mg Take 1 [facility] vers 20 mg 6-01 tablet by ity of tablet 00:00: mouth in [place] 00 the Medical morning. Branch metformin 2022-0 Yes [id number] TAKE 2 [facility] nivers ER 500 mg 6-01 TABLETS BY ity of 24 hr 00:00: MOUTH 2 [place] tablet 00 TIMES Medical DAILY WITH Branch MEALS. meclizine 2022-0 Yes [id number] 25mg Take 1 [facility] nivers 25 mg 6-01 tablet by ity of tablet 00:00: mouth 3 [place] 00 (three) Medical times Branch daily as needed for Dizziness. Diclofenac 2022-0 Yes [id number] Apply to [facility] Sodium 6-01 area(s) 4 ity of (VOLTAREN) 00:00: (four) [place] 1 % gel 00 times Medical daily. Branch Apply 4 g qid Lidocaine 5 2022-0 Yes [id number] Apply to [facility] % cream 6-01 area(s) 2 ity of 00:00: (two) [place] 00 times Medical daily as Branch needed for Pain (scale 4-6). Apply 5g to affected areas BID PRN gabapentin 2022-0 Yes [id number] 200mg Take 2 [facility] 100 mg 6-01 capsules ity of capsule 00:00: by mouth [place] 00 in the Medical morning Branch and 2 capsules in the evening. lisinopriL- 2022-0 Yes [id number] 1{tbl} Take 1 [facility] hydrochloro 6-01 tablet by ity of thiazide 00:00: mouth in [place] 20-25 mg 00 the Medical per tablet morning. Bran h FLUoxetine 2022-0 Yes [id number] 20mg Take 1 [facility] vers 20 mg 6-01 tablet by ity of tablet 00:00: mouth in [place] 00 the Medical morning. Branch metformin 2022-0 Yes [id number] TAKE 2 [facility] nivers ER 500 mg 6-01 TABLETS BY ity of 24 hr 00:00: MOUTH 2 [place] tablet 00 TIMES Medical DAILY WITH [place] MEALS. meclizine 2022-0 Yes [id number] 25mg Take 1 [facility] nivers 25 mg 6-01 tablet by ity of tablet 00:00: mouth 3 [place] 00 (three) Medical times Branch daily as needed for Dizziness. Diclofenac 2022-0 Yes [id number] Apply to [facility] Sodium 6-01 area(s) 4 ity of (VOLTAREN) 00:00: (four) [place] 1 % gel 00 times Medical daily. Branch Apply 4 g qid Lidocaine 5 2022-0 Yes [id number] Apply to [facility] % cream 6-01 area(s) 2 ity of 00:00: (two) [place] 00 times Medical daily as Branch needed for Pain (scale 4-6). Apply 5g to affected areas BID PRN gabapentin 2022-0 Yes [id number] 200mg Take 2 [facility] 100 mg 6-01 capsules ity of capsule 00:00: by mouth [place] 00 in the Medical morning Branch and 2 capsules in the evening. lisinopriL- 2022-0 Yes [id number] 1{tbl} Take 1 [facility] hydrochloro 6-01 tablet by ity of thiazide 00:00: mouth in [place] 20-25 mg 00 the Medical per tablet morning. Branc h FLUoxetine 2022-0 Yes [id number] 20mg Take 1 [facility] vers 20 mg 6-01 tablet by ity of tablet 00:00: mouth in [place] 00 the Medical morning. Branch metformin 2022-0 Yes [id number] TAKE 2 [facility] nivers ER 500 mg 6-01 TABLETS BY ity of 24 hr 00:00: MOUTH 2 [place] tablet 00 TIMES Medical DAILY WITH Branch MEALS. meclizine 0 Yes [id number] 25mg Take 1 [facility] nivers 25 mg 6-01 tablet by ity of tablet 00:00: mouth 3 [place] 00 (three) Medical times Branch daily as needed for Dizziness. Diclofenac 0 Yes [id number] Apply to [facility] Sodium 6-01 area(s) 4 ity of (VOLTAREN) 00:00: (four) [place] 1 % gel 00 times Medical daily. Branch Apply 4 g qid Lidocaine 5 2022-0 Yes [id number] Apply to [facility] % cream 6-01 area(s) 2 ity of 00:00: (two) [place] 00 times Medical daily as Branch needed for Pain (scale 4-6). Apply 5g to affected areas BID PRN gabapentin 2022-0 Yes [id number] 200mg Take 2 [facility] 100 mg 6-01 capsules ity of capsule 00:00: by mouth [place] 00 in the Medical morning Branch and 2 capsules in the evening. lisinopriL- 2022-0 Yes [id number] 1{tbl} Take 1 [facility] hydrochloro 6-01 tablet by ity of thiazide 00:00: mouth in [place] 20-25 mg 00 the Medical per tablet morning. Branc h FLUoxetine 2022-0 Yes [id number] 20mg Take 1 [facility] vers 20 mg 6-01 tablet by ity of tablet 00:00: mouth in [place] 00 the Medical morning. Branch metformin 2022-0 Yes [id number] TAKE 2 [facility] nivers ER 500 mg 6-01 TABLETS BY ity of 24 hr 00:00: MOUTH 2 [place] tablet 00 TIMES Medical DAILY WITH Branch MEALS. meclizine 2022-0 Yes [id number] 25mg Take 1 [facility] nivers 25 mg 6-01 tablet by ity of tablet 00:00: mouth 3 [place] 00 (three) Medical times Branch daily as needed for Dizziness. Diclofenac 2022-0 Yes [id number] Apply to [facility] Sodium 6-01 area(s) 4 ity of (VOLTAREN) 00:00: (four) [place] 1 % gel 00 times Medical daily. Branch Apply 4 g qid Lidocaine 5 2022-0 Yes [id number] Apply to [facility] % cream 6-01 area(s) 2 ity of 00:00: (two) [place] 00 times Medical daily as Branch needed for Pain (scale 4-6). Apply 5g to affected areas BID PRN gabapentin 2022-0 Yes [id number] 200mg Take 2 [facility] 100 mg 6-01 capsules ity of capsule 00:00: by mouth [place] 00 in the Medical morning Branch and 2 capsules in the evening. lisinopriL- 2022-0 Yes [id number] 1{tbl} Take 1 [facility] hydrochloro 6-01 tablet by ity of thiazide 00:00: mouth in [place] 20-25 mg 00 the Medical per tablet morning. Bran h FLUoxetine 2022-0 Yes [id number] 20mg Take 1 [facility] vers 20 mg 6-01 tablet by ity of tablet 00:00: mouth in [place] 00 the Medical morning. Branch metformin 2022-0 Yes [id number] TAKE 2 [facility] nivers ER 500 mg 6-01 TABLETS BY ity of 24 hr 00:00: MOUTH 2 [place] tablet 00 TIMES Medical DAILY WITH Branch MEALS. meclizine 2022-0 Yes [id number] 25mg Take 1 [facility] nivers 25 mg 6-01 tablet by ity of tablet 00:00: mouth 3 [place] 00 (three) Medical times Branch daily as needed for Dizziness. Diclofenac 2022-0 Yes [id number] Apply to [facility] Sodium 6-01 area(s) 4 ity of (VOLTAREN) 00:00: (four) [place] 1 % gel 00 times Medical daily. Branch Apply 4 g qid Lidocaine 5 2022-0 Yes [id number] Apply to [facility] % cream 6-01 area(s) 2 ity of 00:00: (two) [place] 00 times Medical daily as Branch needed for Pain (scale 4-6). Apply 5g to affected areas BID PRN gabapentin 2022-0 Yes [id number] 200mg Take 2 [facility] 100 mg 6-01 capsules ity of capsule 00:00: by mouth [place] 00 in the Medical morning Branch and 2 capsules in the evening. lisinopriL- 2022-0 Yes [id number] 1{tbl} Take 1 [facility] hydrochloro 6-01 tablet by ity of thiazide 00:00: mouth in [place] 20-25 mg 00 the Medical per tablet morning. Bran h FLUoxetine 2022-0 Yes [id number] 20mg Take 1 [facility] vers 20 mg 6-01 tablet by ity of tablet 00:00: mouth in [place] 00 the Medical morning. Branch metformin 2022-0 Yes [id number] TAKE 2 [facility] nivers ER 500 mg 6-01 TABLETS BY ity of 24 hr 00:00: MOUTH 2 [place] tablet 00 TIMES Medical DAILY WITH Branch MEALS. meclizine 2022-0 Yes [id number] 25mg Take 1 [facility] nivers 25 mg 6-01 tablet by ity of tablet 00:00: mouth 3 [place] 00 (three) Medical times Branch daily as needed for Dizziness. Diclofenac 2022-0 Yes [id number] Apply to [facility] Sodium 6-01 area(s) 4 ity of (VOLTAREN) 00:00: (four) [place] 1 % gel 00 times Medical daily. Branch Apply 4 g qid Lidocaine 5 2022-0 Yes [id number] Apply to [facility] % cream 6-01 area(s) 2 ity of 00:00: (two) [place] 00 times Medical daily as Branch needed for Pain (scale 4-6). Apply 5g to affected areas BID PRN gabapentin 3-0 Yes [id number] 200mg Take 2 [facility] 100 mg 6-01 capsules ity of capsule 00:00: by mouth [place] 00 in the Medical morning Branch and 2 capsules in the evening. lisinopriL- 3-0 Yes [id number] 1{tbl} Take 1 [facility] hydrochloro 6-01 tablet by ity of thiazide 00:00: mouth in [place] 20-25 mg 00 the Medical per tablet morning. Bran h FLUoxetine 2022-0 Yes [id number] 20mg Take 1 [facility] vers 20 mg 6-01 tablet by ity of tablet 00:00: mouth in [place] 00 the Medical morning. Branch metformin 2022-0 Yes [id number] TAKE 2 [facility] nivers ER 500 mg 6-01 TABLETS BY ity of 24 hr 00:00: MOUTH 2 [place] tablet 00 TIMES Medical DAILY WITH Branch MEALS. meclizine 2022-0 Yes [id number] 25mg Take 1 [facility] nivers 25 mg 6-01 tablet by ity of tablet 00:00: mouth 3 [place] 00 (three) Medical times Branch daily as needed for Dizziness. Diclofenac 2022-0 Yes [id number] Apply to [facility] Sodium 6-01 area(s) 4 ity of (VOLTAREN) 00:00: (four) [place] 1 % gel 00 times Medical daily. Branch Apply 4 g qid Lidocaine 5 2022-0 Yes [id number] Apply to [facility] % cream 6- area(s) 2 ity of 00:00: (two) [place] 00 times Medical daily as Branch needed for Pain (scale 4-6). Apply 5g to affected areas BID PRN gabapentin 2022-0 Yes [id number] 200mg Take 2 [facility] 100 mg 6-01 capsules ity of capsule 00:00: by mouth [place] 00 in the Medical morning Branch and 2 capsules in the evening. lisinopriL- 2022-0 Yes [id number] 1{tbl} Take 1 [facility] hydrochloro 6-01 tablet by ity of thiazide 00:00: mouth in [place] 20-25 mg 00 the Medical per tablet morning. [facility] h FLUoxetine 2022-0 Yes [id number] 20mg Take 1 [facility] vers 20 mg 6-01 tablet by ity of tablet 00:00: mouth in [place] 00 the Medical morning. Branch metformin 2022-0 Yes [id number] TAKE 2 U nivers ER 500 mg 6-01 TABLETS BY ity of 24 hr 00:00: MOUTH 2 [place] tablet 00 TIMES Medical DAILY WITH Branch MEALS. meclizine 2022-0 Yes [id number] 25mg Take 1 [facility] nivers 25 mg 6-01 tablet by ity of tablet 00:00: mouth 3 [place] 00 (three) Medical times Branch daily as needed for Dizziness. Diclofenac 2022-0 Yes [id number] Apply to [facility] Sodium 6-01 area(s) 4 ity of (VOLTAREN) 00:00: (four) [place] 1 % gel 00 times Medical daily. Branch Apply 4 g qid Lidocaine 5 2022-0 Yes [id number] Apply to [facility] % cream 6-01 area(s) 2 ity of 00:00: (two) [place] 00 times Medical daily as Branch needed for Pain (scale 4-6). Apply 5g to affected areas BID PRN gabapentin 2022-0 Yes [id number] 200mg Take 2 [facility] 100 mg 6-01 capsules ity of capsule 00:00: by mouth [place] 00 in the Medical morning Branch and 2 capsules in the evening. lisinopriL- 2022-0 Yes [id number] 1{tbl} Take 1 [facility] hydrochloro 6-01 tablet by ity of thiazide 00:00: mouth in [place] 20-25 mg 00 the Medical per tablet morning. Bran h FLUoxetine 2022-0 Yes [id number] 20mg Take 1 [facility] vers 20 mg 6-01 tablet by ity of tablet 00:00: mouth in [place] 00 the Medical morning. Branch metformin 2022-0 Yes [id number] TAKE 2 U nivers ER 500 mg 6-01 TABLETS BY ity of 24 hr 00:00: MOUTH 2 [place] tablet 00 TIMES Medical DAILY WITH Branch MEALS. meclizine 2022-0 Yes [id number] 25mg Take 1 [facility] nivers 25 mg 6-01 tablet by ity of tablet 00:00: mouth 3 [place] 00 (three) Medical times Branch daily as needed for Dizziness. Diclofenac 2022-0 Yes [id number] Apply to [facility] Sodium 6-01 area(s) 4 ity of (VOLTAREN) 00:00: (four) [place] 1 % gel 00 times Medical daily. Branch Apply 4 g qid Lidocaine 5 2022-0 Yes [id number] Apply to [facility] % cream 6-01 area(s) 2 ity of 00:00: (two) [place] 00 times Medical daily as Branch needed for Pain (scale 4-6). Apply 5g to affected areas BID PRN gabapentin 2022-0 Yes [id number] 200mg Take 2 [facility] 100 mg 6-01 capsules ity of capsule 00:00: by mouth [place] 00 in the Medical morning Branch and 2 capsules in the evening. lisinopriL- 2022-0 Yes [id number] 1{tbl} Take 1 [facility] hydrochloro 6-01 tablet by ity of thiazide 00:00: mouth in [place] 20-25 mg 00 the Medical per tablet morning. Bran h FLUoxetine 2022-0 Yes [id number] 20mg Take 1 [facility] vers 20 mg 6-01 tablet by ity of tablet 00:00: mouth in [place] 00 the Medical morning. Branch metformin 2022-0 Yes [id number] TAKE 2 U nivers ER 500 mg 6-01 TABLETS BY ity of 24 hr 00:00: MOUTH 2 [place] tablet 00 TIMES Medical DAILY WITH Branch MEALS. meclizine 2022-0 Yes [id number] 25mg Take 1 [facility] nivers 25 mg 6-01 tablet by ity of tablet 00:00: mouth 3 [place] 00 (three) Medical times Branch daily as needed for Dizziness. Diclofenac 0 Yes [id number] Apply to [facility] Sodium 6-01 area(s) 4 ity of (VOLTAREN) 00:00: (four) [place] 1 % gel 00 times Medical daily. Branch Apply 4 g qid Lidocaine 5 2022-0 Yes [id number] Apply to [facility] % cream 6-01 area(s) 2 ity of 00:00: (two) [place] 00 times Medical daily as Branch needed for Pain (scale 4-6). Apply 5g to affected areas BID PRN gabapentin 2022-0 Yes [id number] 200mg Take 2 [facility] 100 mg 6-01 capsules ity of capsule 00:00: by mouth [place] 00 in the Medical morning Branch and 2 capsules in the evening. lisinopriL- 2022-0 Yes [id number] 1{tbl} Take 1 [facility] hydrochloro 6-01 tablet by ity of thiazide 00:00: mouth in [place] 20-25 mg 00 the Medical per tablet morning. Bran h FLUoxetine 2022-0 Yes [id number] 20mg Take 1 [facility] vers 20 mg 6-01 tablet by ity of tablet 00:00: mouth in [place] 00 the Medical morning. Branch metformin 2022-0 Yes [id number] TAKE 2 U nivers ER 500 mg 6-01 TABLETS BY ity of 24 hr 00:00: MOUTH 2 [place] tablet 00 TIMES Medical DAILY WITH Branch MEALS. meclizine 2022-0 Yes [id number] 25mg Take 1 U nivers 25 mg 6-01 tablet by ity of tablet 00:00: mouth 3 [place] 00 (three) Medical times Branch daily as needed for Dizziness. Diclofenac 2022-0 Yes [id number] Apply to [facility] Sodium 6-01 area(s) 4 ity of (VOLTAREN) 00:00: (four) [place] 1 % gel 00 times Medical daily. Branch Apply 4 g qid Lidocaine 5 2022-0 Yes [id number] Apply to [facility] % cream 6-01 area(s) 2 ity of 00:00: (two) [place] 00 times Medical daily as Branch needed for Pain (scale 4-6). Apply 5g to affected areas BID PRN gabapentin 2022-0 Yes [id number] 200mg Take 2 [facility] 100 mg 6-01 capsules ity of capsule 00:00: by mouth [place] 00 in the Medical morning Branch and 2 capsules in the evening. lisinopriL- 2022-0 Yes [id number] 1{tbl} Take 1 [facility] hydrochloro 6-01 tablet by ity of thiazide 00:00: mouth in [place] 20-25 mg 00 the Medical per tablet morning. Bran h FLUoxetine 2022-0 Yes [id number] 20mg Take 1 [facility] vers 20 mg 6-01 tablet by ity of tablet 00:00: mouth in [place] 00 the Medical morning. Branch metformin 2022-0 Yes [id number] TAKE 2 U nivers ER 500 mg 6-01 TABLETS BY ity of 24 hr 00:00: MOUTH 2 [place] tablet 00 TIMES Medical DAILY WITH Branch MEALS. meclizine 2022-0 Yes [id number] 25mg Take 1 [facility] nivers 25 mg 6-01 tablet by ity of tablet 00:00: mouth 3 [place] 00 (three) Medical times Branch daily as needed for Dizziness. Diclofenac 2022-0 Yes [id number] Apply to [facility] Sodium 6-01 area(s) 4 ity of (VOLTAREN) 00:00: (four) [place] 1 % gel 00 times Medical daily. Branch Apply 4 g qid Lidocaine 5 2022-0 Yes [id number] Apply to [facility] % cream 6-01 area(s) 2 ity of 00:00: (two) [place] 00 times Medical daily as Branch needed for Pain (scale 4-6). Apply 5g to affected areas BID PRN gabapentin 2022-0 Yes [id number] 200mg Take 2 [facility] 100 mg 6-01 capsules ity of capsule 00:00: by mouth 00 in the Medical morning Branch and 2 capsules in the evening. lisinopriL- 2022-0 Yes [id number] 1{tbl} Take 1 [facility] hydrochloro 6-01 tablet by ity of thiazide 00:00: mouth in [place] 20-25 mg 00 the Medical per tablet morning. Branc h FLUoxetine 2022-0 Yes [id number] 20mg Take 1 [facility] vers 20 mg 6-01 tablet by ity of tablet 00:00: mouth in [place] 00 the Medical morning. Branch metformin 2022-0 Yes [id number] TAKE 2 U nivers ER 500 mg 6-01 TABLETS BY ity of 24 hr 00:00: MOUTH 2 [place] tablet 00 TIMES Medical DAILY WITH Branch MEALS. meclizine 2022-0 Yes [id number] 25mg Take 1 U nivers 25 mg 6-01 tablet by ity of tablet 00:00: mouth 3 [place] 00 (three) Medical times Branch daily as needed for Dizziness. Diclofenac 2022-0 Yes [id number] Apply to [facility] Sodium - area(s) 4 ity of (VOLTAREN) 00:00: (four) [place] 1 % gel 00 times Medical daily. Branch Apply 4 g qid Lidocaine 5 2022-0 Yes [id number] Apply to [facility] % cream 6-01 area(s) 2 ity of 00:00: (two) [place] 00 times Medical daily as Branch needed for Pain (scale 4-6). Apply 5g to affected areas BID PRN gabapentin 2022-0 Yes [id number] 200mg Take 2 [facility] 100 mg 6-01 capsules ity of capsule 00:00: by mouth [place] in the Medical morning Branch and 2 capsules in the evening. lisinopriL- 2022-0 Yes [id number] 1{tbl} Take 1 [facility] hydrochloro 6-01 tablet by ity of thiazide 00:00: mouth in [place] 20-25 mg 00 the Medical per tablet morning. Branc h FLUoxetine 2022-0 Yes [id number] 20mg Take 1 [facility] vers 20 mg 6-01 tablet by ity of tablet 00:00: mouth in [place] 00 the Medical morning. Branch metformin 2022-0 Yes [id number] TAKE 2 U nivers ER 500 mg 6-01 TABLETS BY ity of 24 hr 00:00: MOUTH 2 [place] tablet 00 TIMES Medical DAILY WITH [place] MEALS. meclizine 0 Yes [id number] 25mg Take 1 U nivers 25 mg 6-01 tablet by ity of tablet 00:00: mouth 3 [place] 00 (three) Medical times Branch daily as needed for Dizziness. Diclofenac 0 Yes [id number] Apply to [facility] Sodium 6- area(s) 4 ity of (VOLTAREN) 00:00: (four) [place] 1 % gel 00 times Medical daily. Branch Apply 4 g qid Lidocaine 5 0 Yes [id number] Apply to [facility] % cream 6-01 area(s) 2 ity of 00:00: (two) [place] 00 times Medical daily as Branch needed for Pain (scale 4-6). Apply 5g to affected areas BID PRN pseudoephed 0 Yes [id number] 120mg Take 1 [facility] rine SA 6-01 tablet by ity of (SUDAFED 12 00:00: mouth in [place] HOUR) 120 00 the Medical mg SR morning Branch tablet and 1 tablet in the evening. gabapentin 0 Yes [id number] 200mg Take 2 [facility] 100 mg 6-01 capsules ity of capsule 00:00: by mouth [place] 00 in the Medical morning Branch and 2 capsules in the evening. lisinopriL- 0 Yes [id number] 1{tbl} Take 1 [facility] hydrochloro 6-01 tablet by ity of thiazide 00:00: mouth in [place] 20-25 mg 00 the Medical per tablet morning. Branc h FLUoxetine 0 Yes [id number] 20mg Take 1 [facility] vers 20 mg 6-01 tablet by ity of tablet 00:00: mouth in [place] 00 the Medical morning. Branch Insulin 0 Yes [id number] 50U inject 50 [facility] Detemir 6-01 Units ity of (LEVEMIR 00:00: [place] FLE[place] skin in Medical U-100 the Branch INSULN) 100 morning unit/mL (3 and 50 mL) Units in injection the evening. inject with meals. metformin 0 Yes [id number] TAKE 2 U nivers ER 500 mg 6-01 TABLETS BY ity of 24 hr 00:00: MOUTH 2 [place] tablet 00 TIMES Medical DAILY WITH Branch MEALS. insulin 0 Yes [id number] INJECT [facility] vers aspart 6-01 10-30 ity of U-100 00:00: UNITS [place] (NOVOLOG 00 UNDER THE Medica l FLEXPEN SKIN 3 Branch U-100 (THREE) INSULIN) TIMES 100 unit/mL DAILY (3 mL) BEFORE injection MEALS. meclizine Yes [id number] 25mg Take 1 U nivers 25 mg 6-01 tablet by ity of tablet 00:00: mouth 3 [place] 00 (three) Medical times Branch daily as needed for Dizziness. Diclofenac 2022-0 Yes [id number] Apply to [facility] Sodium 6-01 area(s) 4 ity of (VOLTAREN) 00:00: (four) [place] 1 % gel 00 times Medical daily. Branch Apply 4 g qid Lidocaine 5 2022-0 Yes [id number] Apply to [facility] % cream 6-01 area(s) 2 ity of 00:00: (two) [place] 00 times Medical daily as Branch needed for Pain (scale 4-6). Apply 5g to affected areas BID PRN pseudoephed 2022-0 Yes [id number] 120mg Take 1 [facility] rine SA 6-01 tablet by ity of (SUDAFED 12 00:00: mouth in [place] HOUR) 120 00 the Medical mg SR morning Branch tablet and 1 tablet in the evening. gabapentin 0 Yes [id number] 200mg Take 2 [facility] 100 mg 6-01 capsules ity of capsule 00:00: by mouth [place] 00 in the Medical morning Branch and 2 capsules in the evening. lisinopriL- 0 Yes [id number] 1{tbl} Take 1 [facility] hydrochloro 6-01 tablet by ity of thiazide 00:00: mouth in [place] 20-25 mg 00 the Medical per tablet morning. Branc h FLUoxetine 2022-0 Yes [id number] 20mg Take 1 [facility] vers 20 mg 6-01 tablet by ity of tablet 00:00: mouth in [place] 00 the Medical morning. Branch Insulin 2022-0 Yes [id number] 50U inject 50 [facility] Detemir 6-01 Units ity of (LEVEMIR 00:00: [place] FLEXT[place] 00 skin in Medical U-100 the Branch INSULN) 100 morning unit/mL (3 and 50 mL) Units in injection the evening. inject with meals. metformin 2022-0 Yes [id number] TAKE 2 [facility] nivers ER 500 mg 6-01 TABLETS BY ity of 24 hr 00:00: MOUTH 2 [place] tablet 00 TIMES Medical DAILY WITH Branch MEALS. insulin Yes [id number] INJECT [facility] vers aspart 6- 10-30 ity of U-100 00:00: UNITS [place] (NOVOLOG 00 UNDER THE Medica l FLEXPEN SKIN 3 Branch U-100 (THREE) INSULIN) TIMES 100 unit/mL DAILY (3 mL) BEFORE injection MEALS. meclizine Yes [id number] 25mg Take 1 U nivers 25 mg 6- tablet by ity of tablet 00:00: mouth 3 [place] 00 (three) Medical times Branch daily as needed for Dizziness. Diclofenac Yes [id number] Apply to [facility] Sodium 6- area(s) 4 ity of (VOLTAREN) 00:00: (four) [place] 1 % gel 00 times Medical daily. Branch Apply 4 g qid Lidocaine 5 Yes [id number] Apply to [facility] % cream 6- area(s) 2 ity of 00:00: (two) [place] 00 times Medical daily as Branch needed for Pain (scale 4-6). Apply 5g to affected areas BID PRN pseudoephed Yes [id number] 120mg Take 1 [facility] rine SA 6-01 tablet by ity of (SUDAFED 12 00:00: mouth in [place] HOUR) 120 00 the Medical mg SR morning Branch tablet and 1 tablet in the evening. gabapentin Yes [id number] 200mg Take 2 [facility] 100 mg 6- capsules ity of capsule 00:00: by mouth [place] 00 in the Medical morning Branch and 2 capsules in the evening. lisinopriL- Yes [id number] 1{tbl} Take 1 [facility] hydrochloro 6-01 tablet by ity of thiazide 00:00: mouth in [place] 20-25 mg 00 the Medical per tablet morning. Branc h FLUoxetine 0 Yes [id number] 20mg Take 1 [facility] vers 20 mg 6-01 tablet by ity of tablet 00:00: mouth in [place] 00 the Medical morning. Branch Insulin Yes [id number] 50U inject 50 [facility] Detemir 6-01 Units ity of (LEVEMIR 00:00: [place] FLEXT[place] 00 skin in Medical U-100 the Branch INSULN) 100 morning unit/mL (3 and 50 mL) Units in injection the evening. inject with meals. metformin Yes [id number] TAKE 2 U nivers ER 500 mg 6- TABLETS BY ity of 24 hr 00:00: MOUTH 2 [place] tablet 00 TIMES Medical DAILY WITH Branch MEALS. insulin Yes [id number] INJECT [facility] vers aspart - 10-30 ity of U-100 00:00: UNITS [place] (NOVOLOG 00 UNDER THE Medica l FLEXPEN SKIN 3 Branch U-100 (THREE) INSULIN) TIMES 100 unit/mL DAILY (3 mL) BEFORE injection MEALS. meclizine Yes [id number] 25mg Take 1 [facility] nivers 25 mg 6- tablet by ity of tablet 00:00: mouth 3 [place] 00 (three) Medical times Branch daily as needed for Dizziness. Diclofenac Yes [id number] Apply to [facility] Sodium 6- area(s) 4 ity of (VOLTAREN) 00:00: (four) [place] 1 % gel 00 times Medical daily. Branch Apply 4 g qid Lidocaine 5 Yes [id number] Apply to [facility] % cream 6-01 area(s) 2 ity of 00:00: (two) [place] 00 times Medical daily as Branch needed for Pain (scale 4-6). Apply 5g to affected areas BID PRN pseudoephed 0 Yes [id number] 120mg Take 1 [facility] rine SA 6-01 tablet by ity of (SUDAFED 12 00:00: mouth in [place] HOUR[place] 120 00 the Medical mg SR morning Branch tablet and 1 tablet in the evening. gabapentin 0 Yes [id number] 200mg Take 2 [facility] 100 mg 6-01 capsules ity of capsule 00:00: by mouth [place] 00 in the Medical morning Branch and 2 capsules in the evening. lisinopriL- 0 Yes [id number] 1{tbl} Take 1 [facility] hydrochloro 6-01 tablet by ity of thiazide 00:00: mouth in [place] 20-25 mg 00 the Medical per tablet morning. Branc h FLUoxetine 2022-0 Yes [id number] 20mg Take 1 [facility] vers 20 mg 6-01 tablet by ity of tablet 00:00: mouth in [place] 00 the Medical morning. Branch Insulin 2023-0 Yes [id number] 50U inject 50 [facility] Detemir 6-01 Units ity of (LEVEMIR 00:00: [place] FLEXTOU[place] 00 skin in Medical U-100 the Branch INSULN) 100 morning unit/mL (3 and 50 mL) Units in injection the evening. inject with meals. metformin Yes [id number] TAKE 2 U nivers ER 500 mg 6- TABLETS BY ity of 24 hr 00:00: MOUTH 2 [place] tablet 00 TIMES Medical DAILY WITH Branch MEALS. insulin Yes [id number] INJECT Uni vers aspart 08-28 10-30 ity of U-100 00:00: UNITS [place] (NOVOLOG 00 UNDER THE Medica l FLEXPEN SKIN 3 Branch U-100 (THREE) INSULIN) TIMES 100 unit/mL DAILY (3 mL) BEFORE injection MEALS. meclizine Yes [id number] 25mg Take 1 U nivers 25 mg 6- tablet by ity of tablet 00:00: mouth 3 [place] 00 (three) Medical times Branch daily as needed for Dizziness. Diclofenac Yes [id number] Apply to [facility] Sodium - area(s) 4 ity of (VOLTAREN) 00:00: (four) [place] 1 % gel 00 times Medical daily. Branch Apply 4 g qid Lidocaine 5 Yes [id number] Apply to [facility] % cream 6- area(s) 2 ity of 00:00: (two) [place] 00 times Medical daily as Branch needed for Pain (scale 4-6). Apply 5g to affected areas BID PRN pseudoephed 0 Yes [id number] 120mg Take 1 [facility] rine SA 6-01 tablet by ity of (SUDAFED 12 00:00: mouth in [place] HOUR) 120 00 the Medical mg SR morning Branch tablet and 1 tablet in the evening. gabapentin 0 Yes [id number] 200mg Take 2 [facility] 100 mg 6-01 capsules ity of capsule 00:00: by mouth [place] 00 in the Medical morning Branch and 2 capsules in the evening. lisinopriL- 0 Yes [id number] 1{tbl} Take 1 [facility] hydrochloro 6-01 tablet by ity of thiazide 00:00: mouth in [place] 20-25 mg 00 the Medical per tablet morning. Branc h FLUoxetine 2022-0 Yes [id number] 20mg Take 1 [facility] vers 20 mg 6-01 tablet by ity of tablet 00:00: mouth in [place] 00 the Medical morning. Branch Insulin Yes [id number] 50U inject 50 [facility] Detemir 6-01 Units ity of (LEVEMIR 00:00: [place] FLEXT[place] 00 skin in Medical U-100 the Branch INSULN) 100 morning unit/mL (3 and 50 mL) Units in injection the evening. inject with meals. metformin Yes [id number] TAKE 2 U nivers ER 500 mg 6-01 TABLETS BY ity of 24 hr 00:00: MOUTH 2 [place] tablet 00 TIMES Medical DAILY WITH Branch MEALS. insulin Yes [id number] INJECT Uni vers aspart 08-28 10-30 ity of U-100 00:00: UNITS [place] (NOVOLOG 00 UNDER THE Medica l FLEXPEN SKIN 3 Branch U-100 (THREE) INSULIN) TIMES 100 unit/mL DAILY (3 mL) BEFORE injection MEALS. pseudoephed 2022- No [id number] 120mg Take 1 [facility] rine SA 08-28 tablet by ity of (SUDAFED 12 00:00: 00:00 mouth in [place] HOUR) 120 00 :00 the Medical mg SR morning Branch tablet and 1 tablet in the evening. Insulin 2022- No [id number] 50U inject 50 [facility] Detemir 08-28-07 Units ity of (LEVEMIR 00:00: 00:00 under the [place] FLEXTOUCH 00 :00 skin in Medical U-100 the Branch INSULN) 100 morning unit/mL (3 and 50 mL) Units in injection the evening. inject with meals. insulin 2022- No [id number] INJECT [facility] aspart 08-28 10-30 ity of U-100 00:00: 00:00 UNITS [place] (NOVOLOG 00 :00 UNDER THE Medica l FLEXPEN SKIN 3 Branch U-100 (THREE) INSULIN) TIMES 100 unit/mL DAILY (3 mL) BEFORE injection MEALS. pseudoephed 2022- No [id number] 120mg Take 1 [facility] rine SA 08-28- tablet by ity of (SUDAFED 12 00:00: 00:00 mouth in [place] HOUR) 120 00 :00 the Medical mg SR morning Branch tablet and 1 tablet in the evening. Insulin 2022- No [id number] 50U inject 50 [facility] Detemir 08-2807 Units ity of (LEVEMIR 00:00: 00:00 under the [place] FLEXTOUCH 00 :00 skin in Medical U-100 the Branch INSULN) 100 morning unit/mL (3 and 50 mL) Units in injection the evening. inject with meals. insulin 2022- No [id number] INJECT [facility] aspart 08-28 10-30 ity of U-100 00:00: 00:00 UNITS [place] (NOVOLOG 00 :00 UNDER THE Medica l FLEXPEN SKIN 3 Branch U-100 (THREE) INSULIN) TIMES 100 unit/mL DAILY (3 mL) BEFORE injection MEALS. pseudoephed 2022- No [id number] 120mg Take 1 [facility] rine SA 08-28 tablet by ity of (SUDAFED 12 00:00: 00:00 mouth in [place] HOUR) 120 00 :00 the Medical mg SR morning Branch tablet and 1 tablet in the evening. Insulin No [id number] 50U inject 50 [facility] Detemir 08-28 Units ity of (LEVEMIR 00:00: 00:00 under the [place] FLEXTOUCH 00 :00 skin in Medical U-100 the Branch INSULN) 100 morning unit/mL (3 and 50 mL) Units in injection the evening. inject with meals. insulin 2022- No [id number] INJECT [facility] aspart 08-28 10-30 ity of U-100 00:00: 00:00 UNITS [place] (NOVOLOG 00 :00 UNDER THE Medica l FLEXPEN SKIN 3 Branch U-100 (THREE) INSULIN) TIMES 100 unit/mL DAILY (3 mL) BEFORE injection MEALS. hydroCHLORO 2022- No [id number] 12.5mg Take 1 [facility] thiazide 08-28 tablet by ity o f 12.5 mg 00:00: 00:00 mouth in [place] tablet 00 :00 the Medical morning. Branch hydroCHLORO 2022- No [id number] 12.5mg Take 1 [facility] thiazide 6- 06- tablet by ity o f 12.5 mg 00:00: 00:00 mouth in [place] tablet 00 :00 the Medical morning. Branch phenazopyri 2022- No Take by [facility] dine HCl 5-03 05-03 mouth. ity of (AZO ORAL) 14:31: 00:00 [place] 51 :00 Medical Branch amoxicillin Yes [id number] 1{tbl} Take 1 [facility] -clavulanat 5-03 tablet by ity of e 00:00: mouth in [place] (AUGMENTIN) 00 the Medical 875-125 mg morning Branch per tablet and 1 tablet in the evening. phenazopyri Yes [id number] 200mg Take 1 [facility] dine 5-03 tablet by ity of (PYRIDIUM) 00:00: mouth in [facility] as 200 mg 00 the Medical tablet morning Branch and 1 tablet at noon and 1 tablet in the evening. Take after meals. amoxicillin Yes [id number] 1{tbl} Take 1 [facility] -clavulanat 5-03 tablet by ity of e 00:00: mouth in [place] (AUGMENTIN) 00 the Medical 875-125 mg morning Branch per tablet and 1 tablet in the evening. phenazopyri Yes [id number] 200mg Take 1 [facility] dine 5-03 tablet by ity of (PYRIDIUM) 00:00: mouth in [facility] as 200 mg 00 the Medical tablet morning Branch and 1 tablet at noon and 1 tablet in the evening. Take after meals. amoxicillin 2022- No [id number] 1{tbl} Take 1 [facility] -clavulanat 5-03 06- tablet by it y of e 00:00: 00:00 mouth in [place] (AUGMENTIN) 00 :00 the Medical 875-125 mg morning Branch per tablet and 1 tablet in the evening. phenazopyri 2022- No [id number] 200mg Take 1 [facility] dine 5-03 06-01 tablet by ity of (PYRIDIUM) 00:00: 00:00 mouth in [place] 200 mg 00 :00 the Medical tablet morning Branch and 1 tablet at noon and 1 tablet in the evening. Take after meals. amoxicillin 2022- No [id number] 1{tbl} Take 1 [facility] -clavulanat 07-30 tablet by it y of e 00:00: 00:00 mouth in [place] (AUGMENTIN) 00 :00 the Medical 875-125 mg morning Branch per tablet and 1 tablet in the evening. phenazopyri 2022- No [id number] 200mg Take 1 [facility] dine 07-30 tablet by ity of (PYRIDIUM) 00:00: 00:00 mouth in [place] 200 mg 00 :00 the Medical tablet morning Branch and 1 tablet at noon and 1 tablet in the evening. Take after meals. FERROUS 0 Yes [id number] 325mg TAKE 1 Uni vers SULFATE 325 4-24 TABLET BY ity of mg (65 mg 00:00: MOUTH IN [facility] s iron) 00 THE Medical tablet MORNING Branch AND 1 TABLET IN THE EVENING. NOVOLOG Yes [id number] INJECT Uni vers FLEXPEN 4-24 10-30 ity of U-100 00:00: UNITS [place] INSULIN 100 00 UNDER THE Med ical unit/mL (3 SKIN 3 Branch mL) (THREE) injection TIMES DAILY BEFORE MEALS. FERROUS 0 Yes [id number] 325mg TAKE 1 Uni vers SULFATE 325 4-24 TABLET BY ity of mg (65 mg 00:00: MOUTH IN [facility] iron[facility] 00 THE Medical tablet MORNING Branch AND 1 TABLET IN THE EVENING. NOVOLOG Yes [id number] INJECT Uni vers FLEXPEN 4-24 10-30 ity of U-100 00:00: UNITS [place] INSULIN 100 00 UNDER THE Med ical unit/mL (3 SKIN 3 Branch mL) (THREE) injection TIMES DAILY BEFORE MEALS. FERROUS 0 Yes [id number] 325mg TAKE 1 [facility] vers SULFATE 325 4-24 TABLET BY ity of mg (65 mg 00:00: [place]TH [place] iron) 00 THE Medical tablet MORNING Branch AND 1 TABLET IN THE EVENING. NOVOLOG 0 Yes [id number] INJECT Uni vers FLEXPEN 4-24 10-30 ity of U-100 00:00: UNITS [place] INSULIN 100 00 UNDER THE Med ical unit/mL (3 SKIN 3 Branch mL) (THREE) injection TIMES DAILY BEFORE MEALS. FERROUS 0 Yes [id number] 325mg TAKE 1 Uni vers SULFATE 325 4-24 TABLET BY ity of mg (65 mg 00:00: M[place]TH [place] iron) 00 THE Medical tablet MORNING Branch AND 1 TABLET IN THE EVENING. NOVOLOG 2022-0 Yes [id number] INJECT Uni vers FLEXPEN 4-24 10-30 ity of U-100 00:00: UNITS [place] INSULIN 100 00 UNDER THE Med ical unit/mL (3 SKIN 3 Branch mL) (THREE) injection TIMES DAILY BEFORE MEALS. FERROUS 2022-0 Yes [id number] 325mg TAKE 1 [facility] vers SULFATE 325 4-24 TABLET BY ity of mg (65 mg 00:00: M[place]TH [place] iron) 00 THE Medical tablet MORNING Branch AND 1 TABLET IN THE EVENING. NOVOLOG 2022-0 Yes [id number] INJECT Uni vers FLEXPEN 4-24 10-30 ity of U-100 00:00: UNITS [place] INSULIN 100 00 UNDER THE Med ical unit/mL (3 SKIN 3 Branch mL) (THREE) injection TIMES DAILY BEFORE MEALS. FERROUS 2022-0 Yes [id number] 325mg TAKE 1 [facility] vers SULFATE 325 4-24 TABLET BY ity of mg (65 mg 00:00: M[place]TH [place] iron) 00 THE Medical tablet MORNING Branch AND 1 TABLET IN THE EVENING. FERROUS 2022-0 Yes [id number] 325mg TAKE 1 Uni vers SULFATE 325 4-24 TABLET BY ity of mg (65 mg 00:00: M[place]TH [place] iron) 00 THE Medical tablet MORNING Branch AND 1 TABLET IN THE EVENING. FERROUS 2022-0 Yes [id number] 325mg TAKE 1 Uni vers SULFATE 325 4-24 TABLET BY ity of mg (65 mg 00:00: M[place]TH [place] iron) 00 THE Medical tablet MORNING Branch AND 1 TABLET IN THE EVENING. FERROUS 2022-0 Yes [id number] 325mg TAKE 1 [facility] vers SULFATE 325 4-24 TABLET BY ity of mg (65 mg 00:00: M[place]TH [place] iron) 00 THE Medical tablet MORNING Branch AND 1 TABLET IN THE EVENING. FERROUS 2022-0 Yes [id number] 325mg TAKE 1 [facility] vers SULFATE 325 4-24 TABLET BY ity of mg (65 mg 00:00: M[place]TH [place] iron) 00 THE Medical tablet MORNING Branch AND 1 TABLET IN THE EVENING. FERROUS 2022-0 Yes [id number] 325mg TAKE 1 [facility] vers SULFATE 325 4-24 TABLET BY ity of mg (65 mg 00:00: MOUTH [place] iron) 00 THE Medical tablet MORNING Branch AND 1 TABLET IN THE EVENING. FERROUS 3-0 Yes [id number] 325mg TAKE 1 [facility] vers SULFATE 325 4-24 TABLET BY ity of mg (65 mg 00:00: MOUTH [place] iron) 00 THE Medical tablet MORNING Branch AND 1 TABLET IN THE EVENING. FERROUS 2022-0 Yes [id number] 325mg TAKE 1 Uni vers SULFATE 325 4-24 TABLET BY ity of mg (65 mg 00:00: MOUTH [place] iron) 00 THE Medical tablet MORNING Branch AND 1 TABLET IN THE EVENING. FERROUS 2022-0 Yes [id number] 325mg TAKE 1 [facility] vers SULFATE 325 4-24 TABLET BY ity of mg (65 mg 00:00: MOUTH [place] iron) 00 THE Medical tablet MORNING Branch AND 1 TABLET IN THE EVENING. FERROUS 2022-0 Yes [id number] 325mg TAKE 1 Uni vers SULFATE 325 4-24 TABLET BY ity of mg (65 mg 00:00: MOUTH [place] iron) 00 THE Medical tablet MORNING Branch AND 1 TABLET IN THE EVENING. FERROUS 2022-0 Yes [id number] 325mg TAKE 1 [facility] vers SULFATE 325 4-24 TABLET BY ity of mg (65 mg 00:00: MOUTH IN [place] iron) 00 THE Medical tablet MORNING Branch AND 1 TABLET IN THE EVENING. FERROUS 2022-0 Yes [id number] 325mg TAKE 1 Uni vers SULFATE 325 4-24 TABLET BY ity of mg (65 mg 00:00: MOUTH [place] iron) 00 THE Medical tablet MORNING Branch AND 1 TABLET IN THE EVENING. FERROUS 2022-0 Yes [id number] 325mg TAKE 1 [facility] vers SULFATE 325 4-24 TABLET BY ity of mg (65 mg 00:00: MOUTH [place] iron) 00 THE Medical tablet MORNING Branch AND 1 TABLET IN THE EVENING. FERROUS 3-0 Yes [id number] 325mg TAKE 1 [facility] vers SULFATE 325 4-24 TABLET BY ity of mg (65 mg 00:00: MOUTH [place] iron) 00 THE Medical tablet MORNING Branch AND 1 TABLET IN THE EVENING. FERROUS 3-0 Yes [id number] 325mg TAKE 1 [facility] vers SULFATE 325 4-24 TABLET BY ity of mg (65 mg 00:00: MOUTH IN [place] iron) 00 THE Medical tablet MORNING Branch AND 1 TABLET IN THE EVENING. FERROUS 3-0 Yes [id number] 325mg TAKE 1 [facility] vers SULFATE 325 4-24 TABLET BY ity of mg (65 mg 00:00: MOUTH [place] iron) 00 THE Medical tablet MORNING Branch AND 1 TABLET IN THE EVENING. FERROUS 3-0 Yes [id number] 325mg TAKE 1 [facility] vers SULFATE 325 4-24 TABLET BY ity of mg (65 mg 00:00: MOUTH [place] iron) 00 THE Medical tablet MORNING Branch AND 1 TABLET IN THE EVENING. FERROUS 2022-0 Yes [id number] 325mg TAKE 1 Uni vers SULFATE 325 4-24 TABLET BY ity of mg (65 mg 00:00: MOUTH [place] iron) 00 THE Medical tablet MORNING Branch AND 1 TABLET IN THE EVENING. FERROUS 2022-0 Yes [id number] 325mg TAKE 1 Uni vers SULFATE 325 4-24 TABLET BY ity of mg (65 mg 00:00: MOUTH [place] iron) 00 THE Medical tablet MORNING Branch AND 1 TABLET IN THE EVENING. FERROUS 2022-0 Yes [id number] 325mg TAKE 1 Uni vers SULFATE 325 4-24 TABLET BY ity of mg (65 mg 00:00: MOUTH [place] iron) 00 THE Medical tablet MORNING Branch AND 1 TABLET IN THE EVENING. FERROUS 3-0 Yes [id number] 325mg TAKE 1 Uni vers SULFATE 325 4-24 TABLET BY ity of mg (65 mg 00:00: MOUTH IN [place] iron) 00 THE Medical tablet MORNING Branch AND 1 TABLET IN THE EVENING. FERROUS 3-0 Yes [id number] 325mg TAKE 1 Uni vers SULFATE 325 4-24 TABLET BY ity of mg (65 mg 00:00: MOUTH IN [place] iron) 00 THE Medical tablet MORNING Branch AND 1 TABLET IN THE EVENING. FERROUS 2023-0 Yes [id number] 325mg TAKE 1 [facility] vers SULFATE 325 4-24 TABLET BY ity of mg (65 mg 00:00: MOUTH IN [place] iron) 00 THE Medical tablet MORNING Branch AND 1 TABLET IN THE EVENING. FERROUS 2023-0 Yes [id number] 325mg TAKE 1 Uni vers SULFATE 325 4-24 TABLET BY ity of mg (65 mg 00:00: MOUTH IN [place] iron) 00 THE Medical tablet MORNING Branch AND 1 TABLET IN THE EVENING. FERROUS 2022-0 Yes [id number] 325mg TAKE 1 Uni vers SULFATE 325 4-24 TABLET BY ity of mg (65 mg 00:00: MOUTH IN [place] iron) 00 THE Medical tablet MORNING Branch AND 1 TABLET IN THE EVENING. FERROUS 2022-0 Yes [id number] 325mg TAKE 1 Uni vers SULFATE 325 4-24 TABLET BY ity of mg (65 mg 00:00: MOUTH IN [place] iron) 00 THE Medical tablet MORNING Branch AND 1 TABLET IN THE EVENING. FERROUS 2022-0 Yes [id number] 325mg TAKE 1 Uni vers SULFATE 325 4-24 TABLET BY ity of mg (65 mg 00:00: MOUTH [place] iron) 00 THE Medical tablet MORNING Branch AND 1 TABLET IN THE EVENING. NOVOLOG 2022- No [id number] INJECT [facility] FLEXPEN 07-21 10-30 ity of U-100 00:00: 00:00 UNITS [place] INSULIN 100 00 :00 UNDER THE Med ical unit/mL (3 SKIN 3 Branch mL) (THREE) injection TIMES DAILY BEFORE MEALS. NOVOLOG 2022- No [id number] INJECT Un [facility] FLEXPEN 07-21 10-30 ity of U-100 00:00: 00:00 UNITS [place] INSULIN 100 00 :00 UNDER THE Med ical unit/mL (3 SKIN 3 Branch mL) (THREE) injection TIMES DAILY BEFORE MEALS. METFORMIN 0 Yes [id number] TAKE 2 U nivers ER 500 mg 3-31 TABLETS BY ity of 24 hr 00:00: MOUTH 2 [place] tablet 00 TIMES Medical DAILY WITH Branch MEALS. HYDROCHLORO 2022-0 Yes TAKE 1 Univ ers THIAZIDE 3-31 TABLET BY ity of 12.5 mg 00:00: MOUTH [place] tablet 00 EVERY DAY Medical IN THE Branch MORNING FOR 90 DAYS METFORMIN 2022-0 Yes [id number] TAKE 2 U nivers ER 500 mg 3-31 TABLETS BY ity of 24 hr 00:00: MOUTH 2 [place] tablet 00 TIMES Medical DAILY WITH Branch MEALS. HYDROCHLORO 0 Yes TAKE 1 Univ ers THIAZIDE 3-31 TABLET BY ity of 12.5 mg 00:00: MOUTH [place] tablet 00 EVERY DAY Medical IN THE Branch MORNING FOR 90 DAYS METFORMIN 2022-0 Yes [id number] TAKE 2 U nivers ER 500 mg 3-31 TABLETS BY ity of 24 hr 00:00: MOUTH 2 [place] tablet 00 TIMES Medical DAILY WITH Branch MEALS. HYDROCHLORO 0 Yes TAKE 1 Univ ers THIAZIDE 3-31 TABLET BY ity of 12.5 mg 00:00: MOUTH [place] tablet 00 EVERY DAY Medical IN THE [place] MORNING FOR 90 DAYS METFORMIN 2022-0 Yes [id number] TAKE 2 U nivers ER 500 mg 3-31 TABLETS BY ity of 24 hr 00:00: MOUTH 2 [place] tablet 00 TIMES Medical DAILY WITH Branch MEALS. HYDROCHLORO 0 Yes TAKE 1 Univ ers THIAZIDE 3-31 TABLET BY ity of 12.5 mg 00:00: MOUTH [place] tablet 00 EVERY DAY Medical IN THE [place] MORNING FOR 90 DAYS METFORMIN 0 Yes [id number] TAKE 2 U nivers ER 500 mg 3-31 TABLETS BY ity of 24 hr 00:00: MOUTH 2 [place] tablet 00 TIMES Medical DAILY WITH Branch MEALS. HYDROCHLORO Yes TAKE 1 Univ ers THIAZIDE 3-31 TABLET BY ity of 12.5 mg 00:00: MOUTH [place] tablet 00 EVERY DAY Medical IN THE [place] MORNING FOR 90 DAYS METFORMIN 0 Yes [id number] TAKE 2 U nivers ER 500 mg 3-31 TABLETS BY ity of 24 hr 00:00: MOUTH 2 [place] tablet 00 TIMES Medical DAILY WITH Branch MEALS. HYDROCHLORO 0 Yes TAKE 1 Univ ers THIAZIDE 3-31 TABLET BY ity of 12.5 mg 00:00: MOUTH [place] tablet 00 EVERY DAY Medical IN THE [place] MORNING FOR 90 DAYS METFORMIN 0 Yes [id number] TAKE 2 U nivers ER 500 mg 3-31 TABLETS BY ity of 24 hr 00:00: MOUTH 2 [place] tablet 00 TIMES Medical DAILY WITH Branch MEALS. HYDROCHLORO 0 Yes TAKE 1 Univ ers THIAZIDE 3-31 TABLET BY ity of 12.5 mg 00:00: MOUTH [place] tablet 00 EVERY DAY Medical IN THE [place] MORNING FOR 90 DAYS METFORMIN 2022-0 2022- No [id number] TAKE 2 [facility] ER 500 mg 3-31 - TABLETS BY ity of 24 hr 00:00: 00:00 MOUTH 2 [place] tablet 00 :00 TIMES Medical DAILY WITH Branch MEALS. HYDROCHLORO 2022-0 2022- No TAKE 1 Uni vers THIAZIDE 3-31 06-01 TABLET BY ity o f 12.5 mg 00:00: 00:00 MOUTH [place] tablet 00 :00 EVERY DAY Medical IN [facility] MORNING FOR 90 DAYS METFORMIN 3-0 3- No [id number] TAKE 2 Univers ER 500 mg 06-27 TABLETS BY ity of 24 hr 00:00: 00:00 MOUTH 2 [place] tablet 00 :00 TIMES Medical DAILY WITH [place] MEALS. HYDROCHLORO 2022-0 2022- No TAKE 1 Uni vers THIAZIDE 06-27 TABLET BY ity o f 12.5 mg 00:00: 00:00 MOUTH [place] tablet 00 :00 EVERY DAY Medical IN [facility] MORNING FOR 90 DAYS gabapentin 2023-0 Yes [id number] 200mg Take 2 [facility] 100 mg 2-16 capsules ity of capsule 00:00: by mouth [place] 00 in the [facility] and 2 capsules in the evening. gabapentin 2023-0 Yes [id number] 200mg Take 2 [facility] 100 mg 2-16 capsules ity of capsule 00:00: by mouth [place] 00 in the [facility] and 2 capsules in the evening. gabapentin 2023-0 Yes [id number] 200mg Take 2 [facility] 100 mg 2-16 capsules ity of capsule 00:00: by mouth [place] 00 in the [facility] and 2 capsules in the evening. gabapentin 2023-0 Yes [id number] 200mg Take 2 [facility] 100 mg 2-16 capsules ity of capsule 00:00: by mouth [place] 00 in the [facility] and 2 capsules in the evening. gabapentin 2023-0 Yes [id number] 200mg Take 2 [facility] 100 mg 2-16 capsules ity of capsule 00:00: by mouth [place] 00 in the [facility] and 2 capsules in the evening. gabapentin 2023-0 Yes [id number] 200mg Take 2 [facility] 100 mg 2-16 capsules ity of capsule 00:00: by mouth [place] 00 in the [facility] and 2 capsules in the evening. gabapentin 2023-0 Yes [id number] 200mg Take 2 [facility] 100 mg 2-16 capsules ity of capsule 00:00: by mouth [place] 00 in the [facility] and 2 capsules in the evening. gabapentin 2023-0 Yes [id number] 200mg Take 2 [facility] 100 mg 2-16 capsules ity of capsule 00:00: by mouth [place] 00 in the [facility] and 2 capsules in the evening. gabapentin 2023-0 Yes [id number] 200mg Take 2 [facility] 100 mg 2-16 capsules ity of capsule 00:00: by mouth [place] 00 in the Medical morning Branch and 2 capsules in the evening. gabapentin 2022- No [id number] 200mg Take 2 [facility] 100 mg 2-16 - capsules ity of capsule 00:00: 00:00 by mouth [place] 00 :00 in the Medical morning Branch and 2 capsules in the evening. gabapentin 2022- No [id number] 200mg Take 2 [facility] 100 mg 2-16 - capsules ity of capsule 00:00: 00:00 by mouth [place] 00 :00 in the Medical morning Branch and 2 capsules in the evening. LISINOPRIL- 2021-03 Yes [id number] TAKE 1 [facility] HYDROCHLORO 2-19 TABLET BY ity of THIAZIDE 00:00: MOUTH [place] 20-25 mg 00 EVERY DAY Medica l per tablet Branch FLUOXETINE 2021-03 Yes [id number] TAKE 1 Uni vers 20 mg 2-19 TABLET BY ity of tablet 00:00: MOUTH [place] 00 EVERY DAY Medical Branch LISINOPRIL- 2021-03 Yes [id number] TAKE 1 [facility] HYDROCHLORO 2-19 TABLET BY ity of THIAZIDE 00:00: MOUTH [place] 20-25 mg 00 EVERY DAY Medica l per tablet Branch FLUOXETINE 2021-03 Yes [id number] TAKE 1 Uni vers 20 mg 2-19 TABLET BY ity of tablet 00:00: MOUTH [place] 00 EVERY DAY Medical Branch LISINOPRIL- 2021-03 Yes [id number] TAKE 1 [facility] HYDROCHLORO 2-19 TABLET BY ity of THIAZIDE 00:00: MOUTH [place] 20-25 mg 00 EVERY DAY Medica l per tablet Branch FLUOXETINE 2021-03 Yes [id number] TAKE 1 Uni vers 20 mg 2-19 TABLET BY ity of tablet 00:00: MOUTH [place] 00 EVERY DAY Medical Branch LISINOPRIL- 2021-03 Yes [id number] TAKE 1 [facility] HYDROCHLORO 2-19 TABLET BY ity of THIAZIDE 00:00: MOUTH [place] 20-25 mg 00 EVERY DAY Medica l per tablet Branch FLUOXETINE 2021-03 Yes [id number] TAKE 1 Uni vers 20 mg 2-19 TABLET BY ity of tablet 00:00: MOUTH [place] 00 EVERY DAY Medical Branch LISINOPRIL- 2021-03 Yes [id number] TAKE 1 [facility] HYDROCHLORO 2-19 TABLET BY ity of THIAZIDE 00:00: MOUTH [place] 20-25 mg 00 EVERY DAY Medica l per tablet Branch [facility] 2021-03 Yes [id number] TAKE 1 Uni vers 20 mg 2-19 TABLET BY ity of tablet 00:00: MOUTH [place] 00 EVERY DAY Medical [place] LISINOPRIL- 2021-03 Yes [id number] TAKE 1 [facility] HYDROCHLORO 2-19 TABLET BY ity of THIAZIDE 00:00: MOUTH [place] 20-25 mg 00 EVERY DAY Medica l per tablet Branch [facility] 2021-03 Yes [id number] TAKE 1 Uni vers 20 mg 2-19 TABLET BY ity of tablet 00:00: MOUTH [place] 00 EVERY DAY Medical [place] LISINOPRIL- 2021-03 Yes [id number] TAKE 1 [facility] HYDROCHLORO 2-19 TABLET BY ity of THIAZIDE 00:00: MOUTH [place] 20-25 mg 00 EVERY DAY Medica l per tablet Branch [facility] 2021-03 Yes [id number] TAKE 1 Uni vers 20 mg 2-19 TABLET BY ity of tablet 00:00: MOUTH [place] 00 EVERY DAY Medical [place] LISINOPRIL 2021-03 Yes [id number] TAKE 1 [facility] HYDROCHLORO 2-19 TABLET BY ity of THIAZIDE 00:00: MOUTH [place] 20-25 mg 00 EVERY DAY Medica l per tablet Branch [facility] 2021-03 Yes [id number] TAKE 1 Uni vers 20 mg 2-19 TABLET BY ity of tablet 00:00: MOUTH [place] 00 EVERY DAY Medical [place] LISINOPRIL 2021-03 Yes [id number] TAKE 1 [facility] HYDROCHLORO 2-19 TABLET BY ity of THIAZIDE 00:00: MOUTH [place] 20-25 mg 00 EVERY DAY Medica l per tablet Branch [facility] 2021-03 Yes [id number] TAKE 1 Uni vers 20 mg 2-19 TABLET BY ity of tablet 00:00: MOUTH [place] 00 EVERY DAY Medical [place] LISINOPRIL 2021-03 Yes [id number] TAKE 1 [facility] HYDROCHLORO 2-19 TABLET BY ity of THIAZIDE 00:00: MOUTH [place] 20-25 mg 00 EVERY DAY Medica l per tablet Branch [facility] 2021-03 Yes [id number] TAKE 1 Uni vers 20 mg 2-19 TABLET BY ity of tablet 00:00: MOUTH [place] 00 EVERY DAY Medical [place] LISINOPRIL 2021-03 Yes [id number] TAKE 1 [facility] HYDROCHLORO 2-19 TABLET BY ity of THIAZIDE 00:00: MOUTH [place] 20-25 mg 00 EVERY DAY Medica l per tablet Branch [facility] 2021-03 Yes [id number] TAKE 1 Uni vers 20 mg 2-19 TABLET BY ity of tablet 00:00: MOUTH [place] 00 EVERY DAY Medical [place] LISINOPRIL- 2021-03 Yes [id number] TAKE 1 [facility] HYDROCHLORO 2-19 TABLET BY ity of THIAZIDE 00:00: MOUTH [place] 20-25 mg 00 EVERY DAY Medica l per tablet Branch [facility] 2021-03 Yes [id number] TAKE 1 Uni vers 20 mg 2-19 TABLET BY ity of tablet 00:00: MOUTH [place] 00 EVERY DAY Medical [place] LISINOPRIL- 2021-03 Yes [id number] TAKE 1 [facility] HYDROCHLORO 2-19 TABLET BY ity of THIAZIDE 00:00: MOUTH [place] 20-25 mg 00 EVERY DAY Medica l per tablet Branch [facility] 2021-03 Yes [id number] TAKE 1 [facility] vers 20 mg 2-19 TABLET BY ity of tablet 00:00: MOUTH [place] 00 EVERY DAY Medical [place] LISINOPRIL- 2021-03 Yes [id number] TAKE 1 [facility] HYDROCHLORO 2-19 TABLET BY ity of THIAZIDE 00:00: MOUTH [place] 20-25 mg 00 EVERY DAY Medica l per tablet Branch [facility] 2021-03 Yes [id number] TAKE 1 [facility] vers 20 mg 2-19 TABLET BY ity of tablet 00:00: MOUTH [place] 00 EVERY DAY Medical [place] LISINOPRIL- 2021-03- No [id number] TAKE 1 [facility] HYDROCHLORO 2-19 06-01 TABLET BY it y of THIAZIDE 00:00: 00:00 MOUTH [place] 20-25 mg 00 :00 EVERY DAY Medica l per tablet Branch [facility] 2021-03- No [id number] TAKE 1 [facility] 20 mg 2-19 06-01 TABLET BY ity of tablet 00:00: 00:00 MOUTH [place] 00 :00 EVERY DAY Medical [place] LISINOPRIL- 2021-03- No [id number] TAKE 1 [facility] HYDROCHLORO 2-19 06-01 TABLET BY it y of THIAZIDE 00:00: 00:00 MOUTH [place] 20-25 mg 00 :00 EVERY DAY Medica l per tablet Branch [facility] 2021-03- No [id number] TAKE 1 [facility] 20 mg 2-19 06-01 TABLET BY ity of tablet 00:00: 00:00 MOUTH [place] 00 :00 EVERY DAY Medical Branch LEVEMIR 2021-03 Yes [id number] 50U INJECT 50 [facility] FLEXTOUCH 1-26 UNITS ity of U-100 00:00: UNDER THE [place] INSULN 100 00 SKIN 2 Medical unit/mL (3 (TWO) Branch mL) TIMES injection DAILY WITH MEALS. LEVEMIR 2021-03 Yes [id number] 50U INJECT 50 [facility] FLEXTOUCH 1-26 UNITS ity of U-100 00:00: UNDER THE [place] INSULN 100 00 SKIN 2 Medical unit/mL (3 (TWO) Branch mL) TIMES injection DAILY WITH MEALS. LEVEMIR 2021-03 Yes [id number] 50U INJECT 50 [facility] FLEXTOUCH 1-26 UNITS ity of U-100 00:00: UNDER THE [place] INSULN 100 00 SKIN 2 Medical unit/mL (3 (TWO) Branch mL) TIMES injection DAILY WITH MEALS. LEVEMIR 2021-03 Yes [id number] 50U INJECT 50 [facility] FLEXTOUCH 1-26 UNITS ity of U-100 00:00: UNDER THE [place] INSULN 100 00 SKIN 2 Medical unit/mL (3 (TWO) Branch mL) TIMES injection DAILY WITH MEALS. LEVEMIR 2021-03 Yes [id number] 50U INJECT 50 [facility] FLEXTOUCH 1-26 UNITS ity of U-100 00:00: UNDER THE [place] INSULN 100 00 SKIN 2 Medical unit/mL (3 (TWO) Branch mL) TIMES injection DAILY WITH MEALS. LEVEMIR 2021-03 Yes [id number] 50U INJECT 50 [facility] FLEXTOUCH 1-26 UNITS ity of U-100 00:00: UNDER THE [place] INSULN 100 00 SKIN 2 Medical unit/mL (3 (TWO) Branch mL) TIMES injection DAILY WITH MEALS. LEVEMIR 2021-03 Yes [id number] 50U INJECT 50 [facility] FLEXTOUCH 1-26 UNITS ity of U-100 00:00: UNDER THE [place] INSULN 100 00 SKIN 2 Medical unit/mL (3 (TWO) Branch mL) TIMES injection DAILY WITH MEALS. LEVEMIR 2021-03 Yes [id number] 50U INJECT 50 [facility] FLEXTOUCH 1-26 UNITS ity of U-100 00:00: UNDER THE [place] INSULN 100 00 SKIN 2 Medical unit/mL (3 (TWO) Branch mL) TIMES injection DAILY WITH MEALS. LEVEMIR 2021-03 Yes [id number] 50U INJECT 50 [facility] FLEXTOUCH 1-26 UNITS ity of U-100 00:00: UNDER THE [place] INSULN 100 00 SKIN 2 Medical unit/mL (3 (TWO) Branch mL) TIMES injection DAILY WITH MEALS. LEVEMIR 2021-03 Yes [id number] 50U INJECT 50 [facility] FLEXTOUCH 1-26 UNITS ity of U-100 00:00: UNDER THE [place] INSULN 100 00 SKIN 2 Medical unit/mL (3 (TWO) Branch mL) TIMES injection DAILY WITH MEALS. LEVEMIR 2021-03 Yes [id number] 50U INJECT 50 [facility] FLEXTOUCH 1-26 UNITS ity of U-100 00:00: UNDER THE [place] INSULN 100 00 SKIN 2 Medical unit/mL (3 (TWO) Branch mL) TIMES injection DAILY WITH MEALS. LEVEMIR 2021-03 Yes [id number] 50U INJECT 50 [facility] FLEXTOUCH 1-26 UNITS ity of U-100 00:00: UNDER THE [place] INSULN 100 00 SKIN 2 Medical unit/mL (3 (TWO) Branch mL) TIMES injection DAILY WITH MEALS. LEVEMIR 2021-03 Yes [id number] 50U INJECT 50 [facility] FLEXTOUCH 1-26 UNITS ity of U-100 00:00: UNDER THE [place] INSULN 100 00 SKIN 2 Medical unit/mL (3 (TWO) Branch mL) TIMES injection DAILY WITH MEALS. LEVEMIR 2021-03 Yes [id number] 50U INJECT 50 [facility] FLEXTOUCH 1-26 UNITS ity of U-100 00:00: UNDER THE [place] INSULN 100 00 SKIN 2 Medical unit/mL (3 (TWO) Branch mL) TIMES injection DAILY WITH MEALS. LEVEMIR 2021-03 Yes [id number] 50U INJECT 50 [facility] FLEXTOUCH 1-26 UNITS ity of U-100 00:00: UNDER THE [place] INSULN 100 00 SKIN 2 Medical unit/mL (3 (TWO) Branch mL) TIMES injection DAILY WITH MEALS. LEVEMIR 2021-03 Yes [id number] 50U INJECT 50 [facility] FLEXTOUCH 1-26 UNITS ity of U-100 00:00: UNDER THE [place] INSULN 100 00 SKIN 2 Medical unit/mL (3 (TWO) Branch mL) TIMES injection DAILY WITH MEALS. LEVEMIR 2021-03 Yes [id number] 50U INJECT 50 [facility] FLEXTOUCH 1-26 UNITS ity of U-100 00:00: UNDER THE [place] INSULN 100 00 SKIN 2 Medical unit/mL (3 (TWO) Branch mL) TIMES injection DAILY WITH MEALS. LEVEMIR 2021-03- No [id number] 50U INJECT 50 [facility] FLEXTOUCH 1-26 06-01 UNITS ity of U-100 00:00: 00:00 UNDER THE [place] INSULN 100 00 :00 SKIN 2 Medical unit/mL (3 (TWO) Branch mL) TIMES injection DAILY WITH MEALS. LEVEMIR 2021-03- No [id number] 50U INJECT 50 [facility] FLEXTOUCH 1-26 06-01 UNITS ity of U-100 00:00: 00:00 UNDER THE [place] INSULN 100 00 :00 SKIN 2 Medical unit/mL (3 (TWO) Branch mL) TIMES injection DAILY WITH MEALS. amoxicillin 2021-03 Yes [id number] 1{tbl} Take 1 [facility] -clavulanat 1-22 9100 tablet by ity of e 00:00: mouth in [place] (AUGMENTIN) 00 the Medical 875-125 mg morning Branch per tablet and 1 tablet in the evening. amoxicillin 2021-03 Yes [id number] 1{tbl} Take 1 [facility] -clavulanat 1-22 9100 tablet by ity of e 00:00: mouth in [place] (AUGMENTIN) 00 the Medical 875-125 mg morning Branch per tablet and 1 tablet in the evening. amoxicillin 2021-03 Yes [id number] 1{tbl} Take 1 [facility] -clavulanat 1-22 9100 tablet by ity of e 00:00: mouth in [place] (AUGMENTIN) 00 the Medical 875-125 mg morning Branch per tablet and 1 tablet in the evening. amoxicillin 2021-03 Yes [id number] 1{tbl} Take 1 [facility] -clavulanat 1-22 9100 tablet by ity of e 00:00: mouth in [place] (AUGMENTIN) 00 the Medical 875-125 mg morning Branch per tablet and 1 tablet in the evening. amoxicillin 2021-03 Yes [id number] 1{tbl} Take 1 [facility] -clavulanat 1-22 9100 tablet by ity of e 00:00: mouth in [place] (AUGMENTIN) 00 the Medical 875-125 mg morning Branch per tablet and 1 tablet in the evening. amoxicillin 2021-03 Yes [id number] 1{tbl} Take 1 [facility] -clavulanat 1-22 9100 tablet by ity of e 00:00: mouth in [place] (AUGMENTIN) 00 the Medical 875-125 mg morning Branch per tablet and 1 tablet in the evening. amoxicillin 2021-03 Yes [id number] 1{tbl} Take 1 [facility] -clavulanat 1-22 9100 tablet by ity of e 00:00: mouth in [place] (AUGMENTIN) 00 the Medical 875-125 mg morning Branch per tablet and 1 tablet in the evening. amoxicillin 2021-03 Yes [id number] 1{tbl} Take 1 [facility] -clavulanat 1-22 9100 tablet by ity of e 00:00: mouth in [place] (AUGMENTIN) 00 the Medical 875-125 mg morning Branch per tablet and 1 tablet in the evening. amoxicillin 2021-03 Yes [id number] 1{tbl} Take 1 [facility] -clavulanat 1-22 9100 tablet by ity of e 00:00: mouth in [place] (AUGMENTIN) 00 the Medical 875-125 mg morning Branch per tablet and 1 tablet in the evening. amoxicillin 2021-03 Yes [id number] 1{tbl} Take 1 [facility] -clavulanat 1-22 9100 tablet by ity of e 00:00: mouth in [place] (AUGMENTIN) 00 the Medical 875-125 mg morning Branch per tablet and 1 tablet in the evening. amoxicillin 2021-03 Yes [id number] 1{tbl} Take 1 [facility] -clavulanat 1-22 9100 tablet by ity of e 00:00: mouth in [place] (AUGMENTIN) 00 the Medical 875-125 mg morning Branch per tablet and 1 tablet in the evening. amoxicillin 2021-03 Yes [id number] 1{tbl} Take 1 [facility] -clavulanat 1-22 9100 tablet by ity of e 00:00: mouth in [place] (AUGMENTIN) 00 the Medical 875-125 mg morning Branch per tablet and 1 tablet in the evening. amoxicillin 2021-03 Yes [id number] 1{tbl} Take 1 [facility] -clavulanat 1-22 9100 tablet by ity of e 00:00: mouth in [place] (AUGMENTIN) 00 the Medical 875-125 mg morning Branch per tablet and 1 tablet in the evening. amoxicillin 2021-03 Yes [id number] 1{tbl} Take 1 [facility] -clavulanat 1-22 9100 tablet by ity of e 00:00: mouth in [place] (AUGMENTIN) 00 the Medical 875-125 mg morning Branch per tablet and 1 tablet in the evening. amoxicillin 2021-03 Yes [id number] 1{tbl} Take 1 [facility] -clavulanat 1-22 9100 tablet by ity of e 00:00: mouth in [place] (AUGMENTIN) 00 the Medical 875-125 mg morning Branch per tablet and 1 tablet in the evening. amoxicillin 2021-03 Yes [id number] 1{tbl} Take 1 [facility] -clavulanat 1-22 9100 tablet by ity of e 00:00: mouth in [place] (AUGMENTIN) 00 the Medical 875-125 mg morning Branch per tablet and 1 tablet in the evening. amoxicillin 2021-03 Yes [id number] 1{tbl} Take 1 [facility] -clavulanat 1-22 9100 tablet by ity of e 00:00: mouth in [place] (AUGMENTIN) 00 the Medical 875-125 mg morning Branch per tablet and 1 tablet in the evening. amoxicillin 2021-03- No [id number] 1{tbl} Take 1 [facility] -clavulanat 1-22 05-03 9100 tablet by it y of e 00:00: 00:00 mouth in [place] (AUGMENTIN) 00 :00 the Medical 875-125 mg morning Branch per tablet and 1 tablet in the evening. cefdinir 2021-03- No [id number] 600mg Take 2 U nivers 300 mg 1-18 11-29 capsules ity of capsule 00:00: 05:59 by mouth [place] 00 :00 in the Medical morning Branch for 10 days. cefdinir 2021-03- No [id number] 600mg Take 2 U nivers 300 mg 1-18 11-22 capsules ity of capsule 00:00: 00:00 by mouth [place] 00 :00 in the Medical morning Branch for 10 days. cefdinir 2021-03- No [id number] 600mg Take 2 U nivers 300 mg 1-18 11-22 capsules ity of capsule 00:00: 00:00 by mouth [place] 00 :00 in the Medical morning Branch for 10 days. METFORMIN 2021-0 Yes [id number] TAKE 2 U nivers ER 500 mg 9-30 TABLETS BY ity of 24 hr 00:00: MOUTH 2 [place] tablet 00 TIMES Medical DAILY WITH Branch MEALS. METFORMIN 2021-0 Yes [id number] TAKE 2 U nivers ER 500 mg 9-30 TABLETS BY ity of 24 hr 00:00: MOUTH 2 [place] tablet 00 TIMES Medical DAILY WITH Branch MEALS. METFORMIN 2021-0 Yes [id number] TAKE 2 U nivers ER 500 mg 9-30 TABLETS BY ity of 24 hr 00:00: MOUTH 2 [place] tablet 00 TIMES Medical DAILY WITH Branch MEALS. METFORMIN 2021-0 Yes [id number] TAKE 2 U nivers ER 500 mg 9-30 TABLETS BY ity of 24 hr 00:00: MOUTH 2 [place] tablet 00 TIMES Medical DAILY WITH Branch MEALS. METFORMIN 2021-0 Yes [id number] TAKE 2 U nivers ER 500 mg 9-30 TABLETS BY ity of 24 hr 00:00: MOUTH 2 [place] tablet 00 TIMES Medical DAILY WITH Branch MEALS. METFORMIN 2021-0 Yes [id number] TAKE 2 U nivers ER 500 mg 9-30 TABLETS BY ity of 24 hr 00:00: MOUTH 2 [place] tablet 00 TIMES Medical DAILY WITH Branch MEALS. METFORMIN 2021-0 Yes [id number] TAKE 2 U nivers ER 500 mg 9-30 TABLETS BY ity of 24 hr 00:00: MOUTH 2 [place] tablet 00 TIMES Medical DAILY WITH Branch MEALS. METFORMIN 2021-0 Yes [id number] TAKE 2 U nivers ER 500 mg 9-30 TABLETS BY ity of 24 hr 00:00: MOUTH 2 [place] tablet 00 TIMES Medical DAILY WITH Branch MEALS. METFORMIN 2021-0 Yes [id number] TAKE 2 U nivers ER 500 mg 9-30 TABLETS BY ity of 24 hr 00:00: MOUTH 2 [place] tablet 00 TIMES Medical DAILY WITH Branch MEALS. METFORMIN 2021-0 Yes [id number] TAKE 2 U nivers ER 500 mg 9-30 TABLETS BY ity of 24 hr 00:00: MOUTH 2 [place] tablet 00 TIMES Medical DAILY WITH Branch MEALS. METFORMIN 2021-0 Yes [id number] TAKE 2 U nivers ER 500 mg 9-30 TABLETS BY ity of 24 hr 00:00: MOUTH 2 [place] tablet 00 TIMES Medical DAILY WITH Branch MEALS. METFORMIN 2021-0 Yes [id number] TAKE 2 U nivers ER 500 mg 9-30 TABLETS BY ity of 24 hr 00:00: MOUTH 2 [place] tablet 00 TIMES Medical DAILY WITH Branch MEALS. METFORMIN 2021-0 Yes [id number] TAKE 2 U nivers ER 500 mg 9-30 TABLETS BY ity of 24 hr 00:00: MOUTH 2 [place] tablet 00 TIMES Medical DAILY WITH Branch MEALS. METFORMIN 2021-0 Yes [id number] TAKE 2 U nivers ER 500 mg 9-30 TABLETS BY ity of 24 hr 00:00: MOUTH 2 [place] tablet 00 TIMES Medical DAILY WITH Branch MEALS. METFORMIN 0 Yes [id number] TAKE 2 U nivers ER 500 mg 9-30 TABLETS BY ity of 24 hr 00:00: MOUTH 2 [place] tablet 00 TIMES Medical DAILY WITH Branch MEALS. METFORMIN 0 Yes [id number] TAKE 2 U nivers ER 500 mg 9-30 TABLETS BY ity of 24 hr 00:00: MOUTH 2 [place] tablet 00 TIMES Medical DAILY WITH Branch MEALS. METFORMIN 2021-0 Yes [id number] TAKE 2 U nivers ER 500 mg 9-30 TABLETS BY ity of 24 hr 00:00: MOUTH 2 [place] tablet 00 TIMES Medical DAILY WITH Branch MEALS. METFORMIN 0 Yes [id number] TAKE 2 U nivers ER 500 mg 9-30 TABLETS BY ity of 24 hr 00:00: MOUTH 2 [place] tablet 00 TIMES Medical DAILY WITH Branch MEALS. METFORMIN 0 Yes [id number] TAKE 2 U nivers ER 500 mg 9-30 TABLETS BY ity of 24 hr 00:00: MOUTH 2 [place] tablet 00 TIMES Medical DAILY WITH Branch MEALS. METFORMIN 0 Yes [id number] TAKE 2 U nivers ER 500 mg 9-30 TABLETS BY ity of 24 hr 00:00: MOUTH 2 [place] tablet 00 TIMES Medical DAILY WITH Branch MEALS. METFORMIN 0 Yes [id number] TAKE 2 U nivers ER 500 mg 9-30 TABLETS BY ity of 24 hr 00:00: MOUTH 2 [place] tablet 00 TIMES Medical DAILY WITH Branch MEALS. METFORMIN 2021-0 2023- No [id number] TAKE 2 [facility] ER 500 mg 9-30 [...] Use 1 [facility] [place] propionate 9-26 } [place] in ity o f (FLONASE 11:06: each [place] NASAL) 09 nostril Medical daily. Branch loratadine [...] Use 1 [place] propionate 9-26 } [place] in ity o f (FLONASE 11:06: each [...] Use 1 [facility] [place] propionate 9-26 } [place] in [place] o f (FLONASE 11:06: each [...] Use 1 [facility] [place] propionate 9-26 } [place] in ity o f (FLONASE 11:06: each [place] NASAL) 09 nostril Medical daily. Branch loratadine [...] Use 1 [place] propionate 9-26 } [place] in ity o f (FLONASE 11:06: each [...] Use 1 [facility] [place] propionate 9-26 } [place] in ity o f (FLONASE 11:06: each [place] NASAL) 09 nostril Medical daily. Branch loratadine [...] tablet by ity of c/lutein 11:06: mouth [place] (CENTRUM 09 daily. Medical SILVER Branch WOMEN ORAL) cyanocobala Yes 1{tbl} Take 1 [facility] min, 9-26 tablet by ity of vitamin 11:06: mouth [place] B-12, 09 daily. Medical (VITAMIN Branch B12 ORAL) fluticasone Yes 1{spray Use 1 [facility] [place] propionate 9-26 } [place] in ity o f (FLONASE 11:06: each [place] NASAL) 09 nostril Medical daily. Branch loratadine [...] Use 1 [place] propionate 9-26 } [place] in ity o f (FLONASE 11:06: each [...] Use 1 [facility] [place] propionate 9-26 } [place] in ity o f (FLONASE 11:06: each [place] NASAL) 09 nostril Medical daily. Branch loratadine [...] Use 1 [facility] [place] propionate 9-26 } [place] in ity o f (FLONASE 11:06: each [place] NASAL) 09 nostril Medical daily. Branch loratadine [...] Use 1 [place] propionate 9- } [place] in ity o f (FLONASE 11:06: each [...] Use 1 [facility] [place] propionate 9-26 } [place] in ity o f (FLONASE 11:06: each [place] NASAL) 09 nostril Medical daily. Branch loratadine [...] tablet by ity of vitamin 11:06: mouth [place] B-12, 09 daily. Medical (VITAMIN Branch B12 ORAL) fluticasone Yes 1{spray Use 1 [place] propionate 9-26 } [place] in ity o f (FLONASE 11:06: each [place] NASAL) 09 nostril Medical daily. Branch loratadine [...] Use 1 [place] propionate 9-26 } [place] in ity o f (FLONASE 11:06: each [place] NASAL) 09 nostril Medical daily. Branch loratadine [...] Use 1 [place] propionate 9-26 } [place] in ity o f (FLONASE 11:06: each [...] Use 1 [facility] [place] propionate 9-26 } [place] in ity o f (FLONASE 11:06: each [...] Use 1 [facility] [place] propionate 9-26 } [place] in ity o f (FLONASE 11:06: each [place] NASAL) 09 nostril Medical daily. Branch loratadine [...] Use 1 [place] propionate 9-26 } [place] in ity o f (FLONASE 11:06: each [...] Use 1 [facility] propionate 9-26 } [place] in ity o f (FLONASE 11:06: each [place] NASAL) 09 nostril Medical daily. Branch loratadine [...] tablet by ity of vitamin 11:06: mouth [place] B-12, 09 daily. Medical (VITAMIN Branch B12 ORAL) fluticasone Yes 1{spray Use 1 [place] propionate 9-26 } [place] in ity o f (FLONASE 11:06: each [place] NASAL) 09 nostril Medical daily. Branch loratadine [...] Use 1 [facility] [place] propionate 9-26 } [place] in ity o f (FLONASE 11:06: each [place] NASAL) 09 nostril Medical daily. Branch loratadine [...] Use 1 [place] propionate 9-26 } [place] in ity o f (FLONASE 11:06: each [place] NASAL) 09 nostril Medical daily. Branch loratadine [...] Use 1 [place] propionate 9-26 } [place] in ity o f (FLONASE 11:06: each [place] NASAL) 09 nostril Medical daily. Branch loratadine [...] Use 1 [place] propionate 9-26 } [place] in ity o f (FLONASE 11:06: each [place] NASAL) 09 nostril Medical daily. Branch loratadine [...] Use 1 [place] propionate 9-26 } [place] in ity o f (FLONASE 11:06: each [...] Use 1 [facility] [place] propionate 9-26 } [place] in ity o f (FLONASE 11:06: each [...] ORAL) cyanocobala Yes 1{tbl} Take 1 Un mial min, 9-26 tablet by ity of vitamin 11:06: mouth [place] B-12, 09 daily. Medical (VITAMIN Branch B12 ORAL) fluticasone Yes 1{spray Use 1 [facility] propionate 9-26 } [place] in ity o f (FLONASE 11:06: each [place] NASAL) 09 nostril Medical daily. Branch loratadine [...] Use 1 [facility] [place] propionate 9-26 } [place] in ity o f (FLONASE 11:06: each [...] Use 1 [facility] [place] propionate 9-26 } [place] in ity o f (FLONASE 11:06: each [...] Use 1 [facility] propionate 9-26 } [place] in ity o f (FLONASE 11:06: each [place] NASAL) 09 nostril Medical daily. Branch loratadine [...] Use 1 [facility] [place] propionate 9-26 } [place] in ity o f (FLONASE 11:06: each [place] NASAL) 09 nostril Medical daily. Branch loratadine [...] Use 1 [facility] propionate 9-26 } [place] in ity o f (FLONASE 11:06: each [place] NASAL) 09 nostril Medical daily. Branch loratadine [...] Use 1 [facility] [place] propionate 9-26 } [place] in ity o f (FLONASE 11:06: each [...] Use 1 [facility] propionate 9-26 } [place] in ity o f (FLONASE 11:06: each [place] NASAL) 09 nostril Medical daily. Branch loratadine [...] Use 1 [facility] propionate 9-26 } [place] in ity o f (FLONASE 11:06: each [...] Use 1 [facility] propionate 9-26 } [place] in ity o f (FLONASE 11:06: each [...] Use 1 [facility] [place] propionate 9-26 } [place] in ity o f (FLONASE 11:06: each [...] Use 1 [facility] propionate 9-26 } [place] in ity o f (FLONASE 11:06: each [place] NASAL) 09 nostril Medical daily. Branch loratadine [...] Use 1 [facility] propionate 9-26 } [place] in ity o f (FLONASE 11:06: each [place] NASAL) 09 nostril Medical daily. Branch loratadine [...] Use 1 [facility] [place] propionate 9-26 } [place] in ity o f (FLONASE 11:06: each [place] NASAL) 09 nostril Medical daily. Branch loratadine [...] Use 1 [place] propionate 9-26 } [place] in ity o f (FLONASE 11:06: each [...] Use 1 [facility] [place] propionate 9-26 } [place] in ity o f (FLONASE 11:06: each [...] Use 1 [facility] [place] propionate 9-26 } [place] in ity o f (FLONASE 11:06: each [...] Use 1 [facility] [place] propionate 9-26 } [place] in ity o f (FLONASE 11:06: each [...] Use 1 [facility] [place] propionate 9-26 } [place] in ity o f (FLONASE 11:06: each [...] Use 1 [place] propionate 9-26 } [place] in ity o f (FLONASE 11:06: each [...] Use 1 [facility] [place] propionate 9-26 } [place] in ity o f (FLONASE 11:06: each [...] Use 1 [facility] [place] propionate 9-26 } [place] in ity o f (FLONASE 11:06: each [...] Use 1 [facility] [place] propionate 9-26 } [place] in ity o f (FLONASE 11:06: each [...] Use 1 [place] propionate 9-26 } [place] in ity o f (FLONASE 11:06: each [...] Use 1 [facility] [place] propionate 9-26 } [place] in ity o f (FLONASE 11:06: each [...] Use 1 [facility] [place] propionate 9-26 } [place] in ity o f (FLONASE 11:06: each [...] Use 1 [facility] [place] propionate 9-26 } [place] in ity o f (FLONASE 11:06: each [...] Use 1 [facility] [place] propionate 9-26 } [place] in ity o f (FLONASE 11:06: each [...] Use 1 [facility] [place] propionate 9-26 } [place] in ity o f (FLONASE 11:06: each [...] Use 1 [facility] [place] propionate - } [place] in ity o f (FLONASE 11:06: each [place] NASAL) 09 nostril Medical daily. Branch aspirin 81 Yes 81mg Take 81 mg U nivers mg EC 9-26 by mouth ity of tablet 11:06: in the [place] 09 morning. Medical Branch ferrous Yes [id number] 325mg Take 1 Uni vers sulfate 325 9-26 tablet by ity of mg (65 mg 00:00: [facility] tablet morning Branch and 1 tablet in the evening. flash Yes [id number] 1{kit} 1 Kit 3 Uni vers glucose 9-26 (three) ity of sensor 00:00: times [place] (FREESTYLE 00 daily as Medic al HARRISON 2 needed for Branch SENSOR) Kit Other. flash Yes [id number] 1{kit} 1 Kit 3 Uni vers glucose 9-26 (three) ity of scanning 00:00: times [place] reader 00 daily as Medical (FREESTYLE needed for Bra nch HARRISON 2 Other READER) (BG). Misc ferrous Yes [id number] 325mg Take 1 [facility] vers sulfate 325 9-26 tablet by [place] of mg (65 mg 00:00: [place] iron[place] 00 the Medical tablet morning Branch and 1 tablet in the evening. flash Yes [id number] 1{kit} 1 Kit 3 Uni vers glucose 9-26 (three) ity of sensor 00:00: times [place] (FREESTYLE 00 daily as Medic al HARRISON 2 needed for Branch SENSOR) Kit Other. flash Yes [id number] 1{kit} 1 Kit 3 Uni vers glucose 9-26 (three) ity of scanning 00:00: times [place] reader 00 daily as Medical (FREESTYLE needed for Bra nch HARRISON 2 Other READER) (BG). Misc ferrous 2021-0 Yes [id number] 325mg Take 1 [facility] vers sulfate 325 9-26 tablet by [place] of mg (65 mg 00:00: [place] iron[place] 00 the Medical tablet morning Branch and 1 tablet in the evening. flash 2021-0 Yes [id number] 1{kit} 1 Kit 3 [facility] glucose 9-26 (three) ity of sensor 00:00: times [place] (FREESTYLE 00 daily as Medic al HARRISON 2 needed for Branch SENSOR) Kit Other. flash 2021-0 Yes [id number] 1{kit} 1 Kit 3 [facility] glucose 9-26 (three) ity of scanning 00:00: times [place] reader 00 daily as Medical (FREESTYLE needed for Bra nch HARRISON 2 Other READER) (BG). Misc ferrous 2021-0 Yes [id number] 325mg Take 1 Uni vers sulfate 325 9-26 tablet by [place] of mg (65 mg 00:00: [place] iron[place] 00 the Medical tablet morning Branch and 1 tablet in the evening. flash 2021-0 Yes [id number] 1{kit} 1 Kit 3 [facility] glucose 9-26 (three) ity of sensor 00:00: times [place] (FREESTYLE 00 daily as Medic al HARRISON 2 needed for Branch SENSOR) Kit Other. flash 2021-0 Yes [id number] 1{kit} 1 Kit 3 [facility] glucose 9-26 (three) ity of scanning 00:00: times [place] reader 00 daily as Medical (FREESTYLE needed for Bra nch HARRISON 2 Other READER) (BG). Misc ferrous 2021-0 Yes [id number] 325mg Take 1 Uni vers sulfate 325 9-26 tablet by [place] of mg (65 mg 00:00: [place] iron[place] 00 the Medical tablet morning Branch and 1 tablet in the evening. flash 2021-0 Yes [id number] 1{kit} 1 Kit 3 [facility] glucose 9-26 (three) ity of sensor 00:00: times [place] (FREESTYLE 00 daily as Medic al HARRISON 2 needed for Branch SENSOR) Kit Other. flash 2021-0 Yes [id number] 1{kit} 1 Kit 3 [facility] glucose 9-26 (three) ity of scanning 00:00: times [place] reader 00 daily as Medical (FREESTYLE needed for Bra nch HARRISON 2 Other READER) (BG). Misc ferrous 2022-0 Yes [id number] 325mg Take 1 Uni vers sulfate 325 9-26 tablet by [place] of mg (65 mg 00:00: [place] iron[place] 00 the Medical tablet morning Branch and 1 tablet in the evening. flash 2021-0 Yes [id number] 1{kit} 1 Kit 3 [facility] glucose 9-26 (three) ity of sensor 00:00: times [place] (FREESTYLE 00 daily as Medic al HARRISON 2 needed for Branch SENSOR) Kit Other. flash 2021-0 Yes [id number] 1{kit} 1 Kit 3 [facility] glucose 9-26 (three) ity of scanning 00:00: times [place] reader 00 daily as Medical (FREESTYLE needed for Bra nch HARRISON 2 Other READER) (BG). Misc ferrous 2021-0 Yes [id number] 325mg Take 1 [facility] vers sulfate 325 9-26 tablet by [place] of mg (65 mg 00:00: [place] iron[place] 00 the Medical tablet morning Branch and 1 tablet in the evening. flash 2021-0 Yes [id number] 1{kit} 1 Kit 3 [facility] glucose 9-26 (three) ity of sensor 00:00: times [place] (FREESTYLE 00 daily as Medic al HARRISON 2 needed for Branch SENSOR) Kit Other. flash 2021-0 Yes [id number] 1{kit} 1 Kit 3 [facility] glucose 9-26 (three) ity of scanning 00:00: times [place] reader 00 daily as Medical (FREESTYLE needed for Bra nch HARRISON 2 Other READER) (BG). Misc ferrous 2021-0 Yes [id number] 325mg Take 1 [facility] vers sulfate 325 9-26 tablet by [place] of mg (65 mg 00:00: [place] iron[place] 00 the Medical tablet morning Branch and 1 tablet in the evening. flash 2021-0 Yes [id number] 1{kit} 1 Kit 3 Un [facility] glucose 9-26 (three) ity of sensor 00:00: times [place] (FREESTYLE 00 daily as Medic al HARRISON 2 needed for Branch SENSOR) Kit Other. flash 2021-0 Yes [id number] 1{kit} 1 Kit 3 [facility] [place] glucose 9-26 (three) ity of scanning 00:00: times [place] reader 00 daily as Medical (FREESTYLE needed for Bra nch HARRISON 2 Other READER) (BG). Misc ferrous 2021-0 Yes [id number] 325mg Take 1 Uni vers sulfate 325 9-26 tablet by ity of mg (65 mg 00:00: [place] iron[place] 00 the Medical tablet morning Branch and 1 tablet in the evening. flash 2021-0 Yes [id number] 1{kit} 1 Kit 3 [facility] [place] glucose 9-26 (three) ity of sensor 00:00: times [place] (FREESTYLE 00 daily as Medic al HARRISON 2 needed for Branch SENSOR) Kit Other. flash 2021- Yes [id number] 1{kit} 1 Kit 3 [facility] [place] glucose 9-26 (three) ity of scanning 00:00: times [place] reader 00 daily as Medical (FREESTYLE needed for Bra nch HARRISON 2 Other READER) (BG). Misc ferrous 2021-0 Yes [id number] 325mg Take 1 Uni vers sulfate 325 9-26 tablet by ity of mg (65 mg 00:00: [place] 00 the Medical tablet morning Branch and 1 tablet in the evening. flash 2021-0 Yes [id number] 1{kit} 1 Kit 3 [place] glucose 9-26 (three) ity of sensor 00:00: times [place] (FREESTYLE 00 daily as Medic al HARRISON 2 needed for Branch SENSOR) Kit Other. flash 2021-0 Yes [id number] 1{kit} 1 Kit 3 [place] glucose 9-26 (three) ity of scanning 00:00: times [place] reader 00 daily as Medical (FREESTYLE needed for Bra nch HARRISON 2 Other READER) (BG). Misc ferrous 2021-0 Yes [id number] 325mg Take 1 Uni vers sulfate 325 9-26 tablet by ity of mg (65 mg 00:00: [place] 00 the Medical tablet morning Branch and 1 tablet in the evening. flash 2021-0 Yes [id number] 1{kit} 1 Kit 3 [place] glucose 9-26 (three) ity of sensor 00:00: times [place] (FREESTYLE 00 daily as Medic al HARRISON 2 needed for Branch SENSOR) Kit Other. flash 2021-0 Yes [id number] 1{kit} 1 Kit 3 [place] glucose 9-26 (three) ity of scanning 00:00: times [place] reader 00 daily as Medical (FREESTYLE needed for Bra nch HARRISON 2 Other READER) (BG). Misc ferrous 2021-0 Yes [id number] 325mg Take 1 Uni vers sulfate 325 9-26 tablet by ity of mg (65 mg 00:00: [place] 00 the Medical tablet morning Branch and 1 tablet in the evening. flash 2021-0 Yes [id number] 1{kit} 1 Kit 3 [place] glucose 9-26 (three) ity of sensor 00:00: times [place] (FREESTYLE 00 daily as Medic al HARRISON 2 needed for Branch SENSOR) Kit Other. flash 2021-0 Yes [id number] 1{kit} 1 Kit 3 [place] glucose 9-26 (three) ity of scanning 00:00: times [place] reader 00 daily as Medical (FREESTYLE needed for Bra nch HARRISON 2 Other READER) (BG). Misc ferrous 2021-0 Yes [id number] 325mg Take 1 Uni vers sulfate 325 9-26 tablet by ity of mg (65 mg 00:00: [place] iron[place] 00 the Medical tablet morning Branch and 1 tablet in the evening. flash 2021-0 Yes [id number] 1{kit} 1 Kit 3 [place] glucose 9-26 (three) ity of sensor 00:00: times [place] (FREESTYLE 00 daily as Medic al HARRISON 2 needed for Branch SENSOR) Kit Other. flash 2021-0 Yes [id number] 1{kit} 1 Kit 3 [place] glucose 9-26 (three) ity of scanning 00:00: times [place] reader 00 daily as Medical (FREESTYLE needed for Bra nch HARRISON 2 Other READER) (BG). Misc ferrous 2021-0 Yes [id number] 325mg Take 1 Uni vers sulfate 325 9-26 tablet by ity of mg (65 mg 00:00: [place] 00 the Medical tablet morning Branch and 1 tablet in the evening. flash 2021-0 Yes [id number] 1{kit} 1 Kit 3 [place] glucose 9-26 (three) ity of sensor 00:00: times [place] (FREESTYLE 00 daily as Medic al HARRISON 2 needed for Branch SENSOR) Kit Other. flash 2021-0 Yes [id number] 1{kit} 1 Kit 3 [place] glucose 9-26 (three) ity of scanning 00:00: times [place] reader 00 daily as Medical (FREESTYLE needed for Bra nch HARRISON 2 Other READER) (BG). Misc ferrous 2021-0 Yes [id number] 325mg Take 1 Uni vers sulfate 325 9-26 tablet by ity of mg (65 mg 00:00: [place] 00 the Medical tablet morning Branch and 1 tablet in the evening. flash 2021-0 Yes [id number] 1{kit} 1 Kit 3 [place] glucose 9-26 (three) ity of sensor 00:00: times [place] (FREESTYLE 00 daily as Medic al HARRISON 2 needed for Branch SENSOR) Kit Other. flash 2021-0 Yes [id number] 1{kit} 1 Kit 3 [place] glucose 9-26 (three) ity of scanning 00:00: times [place] reader 00 daily as Medical (FREESTYLE needed for Bra nch HARRISON 2 Other READER) (BG). Misc ferrous 2021-0 Yes [id number] 325mg Take 1 Uni vers sulfate 325 9-26 tablet by ity of mg (65 mg 00:00: [place] 00 the Medical tablet morning Branch and 1 tablet in the evening. flash 2021-0 Yes [id number] 1{kit} 1 Kit 3 [place] glucose 9-26 (three) ity of sensor 00:00: times [place] (FREESTYLE 00 daily as Medic al HARRISON 2 needed for Branch SENSOR) Kit Other. flash 2021-0 Yes [id number] 1{kit} 1 Kit 3 [place] glucose 9-26 (three) ity of scanning 00:00: times [place] reader 00 daily as Medical (FREESTYLE needed for Bra nch HARRISON 2 Other READER) (BG). Misc ferrous 2021-0 Yes [id number] 325mg Take 1 Uni vers sulfate 325 9-26 tablet by ity of mg (65 mg 00:00: mouth [place] iron[place] 00 the Medical tablet morning Branch and 1 tablet in the evening. flash 2021-0 Yes [id number] 1{kit} 1 Kit 3 [place] glucose 9-26 (three) ity of sensor 00:00: times [place] (FREESTYLE 00 daily as Medic al HARRISON 2 needed for Branch SENSOR) Kit Other. flash 2021-0 Yes [id number] 1{kit} 1 Kit 3 [place] glucose 9-26 (three) ity of scanning 00:00: times [place] reader 00 daily as Medical (FREESTYLE needed for Bra nch HARRISON 2 Other READER) (BG). Misc ferrous 2021-0 Yes [id number] 325mg Take 1 Uni vers sulfate 325 9-26 tablet by ity of mg (65 mg 00:00: mouth [place] iron[place] 00 the Medical tablet morning Branch and 1 tablet in the evening. flash 2021- Yes [id number] 1{kit} 1 Kit 3 [place] glucose 9-26 (three) ity of sensor 00:00: times [place] (FREESTYLE 00 daily as Medic al HARRISON 2 needed for Branch SENSOR) Kit Other. flash 2021- Yes [id number] 1{kit} 1 Kit 3 [place] glucose 9-26 (three) ity of scanning 00:00: times [place] reader 00 daily as Medical (FREESTYLE needed for Bra nch HARRISON 2 Other READER) (BG). Misc ferrous 2021-0 Yes [id number] 325mg Take 1 Uni vers sulfate 325 9-26 tablet by ity of mg (65 mg 00:00: mouth [place] iron[place] 00 the Medical tablet morning Branch and 1 tablet in the evening. flash 2021-0 Yes [id number] 1{kit} 1 Kit 3 [place] glucose 9-26 (three) ity of sensor 00:00: times [place] (FREESTYLE 00 daily as Medic al HARRISON 2 needed for Branch SENSOR) Kit Other. flash 2021-0 Yes [id number] 1{kit} 1 Kit 3 [place] glucose 9-26 (three) ity of scanning 00:00: times [place] reader 00 daily as Medical (FREESTYLE needed for Bra nch HARRISON 2 Other READER) (BG). Misc ferrous 2021-0 Yes [id number] 325mg Take 1 Uni vers sulfate 325 9-26 tablet by ity of mg (65 mg 00:00: mouth [place] iron[place] 00 the Medical tablet morning Branch and 1 tablet in the evening. flash 2021-0 Yes [id number] 1{kit} 1 Kit 3 [place] glucose 9-26 (three) ity of sensor 00:00: times [place] (FREESTYLE 00 daily as Medic al HARRISON 2 needed for Branch SENSOR) Kit Other. flash 2021-0 Yes [id number] 1{kit} 1 Kit 3 [place] glucose 9-26 (three) ity of scanning 00:00: times [place] reader 00 daily as Medical (FREESTYLE needed for Bra nch HARRISON 2 Other READER) (BG). Misc ferrous 2021-0 Yes [id number] 325mg Take 1 Uni vers sulfate 325 9-26 tablet by ity of mg (65 mg 00:00: mouth [place] iron[place] 00 the Medical tablet morning Branch and 1 tablet in the evening. flash 2021-0 Yes [id number] 1{kit} 1 Kit 3 [place] glucose 9-26 (three) ity of sensor 00:00: times [place] (FREESTYLE 00 daily as Medic al HARRISON 2 needed for Branch SENSOR) Kit Other. flash 2021-0 Yes [id number] 1{kit} 1 Kit 3 [place] glucose 9-26 (three) ity of scanning 00:00: times [place] reader 00 daily as Medical (FREESTYLE needed for Bra nch HARRISON 2 Other READER) (BG). Misc ferrous 2021-0 Yes [id number] 325mg Take 1 Uni vers sulfate 325 9-26 tablet by ity of mg (65 mg 00:00: mouth [place] iron) 00 the Medical tablet morning Branch and 1 tablet in the evening. flash 2021-0 Yes [id number] 1{kit} 1 Kit 3 [place] glucose 9-26 (three) ity of sensor 00:00: times [place] (FREESTYLE 00 daily as Medic al HARRISON 2 needed for Branch SENSOR) Kit Other. flash 2021-0 Yes [id number] 1{kit} 1 Kit 3 [place] glucose 9-26 (three) ity of scanning 00:00: times [place] reader 00 daily as Medical (FREESTYLE needed for Bra nch HARRISON 2 Other READER) (BG). Misc ferrous 2021-0 Yes [id number] 325mg Take 1 Uni vers sulfate 325 9-26 tablet by ity of mg (65 mg 00:00: mouth [place] iron) 00 the Medical tablet morning Branch and 1 tablet in the evening. flash 2021-0 Yes [id number] 1{kit} 1 Kit 3 [place] glucose 9-26 (three) ity of sensor 00:00: times [place] (FREESTYLE 00 daily as Medic al HARRISON 2 needed for Branch SENSOR) Kit Other. flash 2021-0 Yes [id number] 1{kit} 1 Kit 3 [place] glucose 9-26 (three) ity of scanning 00:00: times [place] reader 00 daily as Medical (FREESTYLE needed for Bra nch HARRISON 2 Other READER) (BG). [facility] ferrous 2021- Yes [id number] 325mg Take 1 Uni vers sulfate 325 9-26 tablet by ity of mg (65 mg 00:00: mouth [place] iron) 00 the Medical tablet morning Branch and 1 tablet in the evening. flash 2021- Yes [id number] 1{kit} 1 Kit 3 [place] glucose 9-26 (three) ity of sensor 00:00: times [place] (FREESTYLE 00 daily as Medic al HARRISON 2 needed for Branch SENSOR) Kit Other. flash 2021-0 Yes [id number] 1{kit} 1 Kit 3 [place] glucose 9-26 (three) ity of scanning 00:00: times [place] reader 00 daily as Medical (FREESTYLE needed for Bra nch HARRISON 2 Other READER) (BG). [facility] flash 2021-0 Yes [id number] 1{kit} 1 Kit 3 [place] glucose 9-26 (three) ity of sensor 00:00: times [place] (FREESTYLE 00 daily as Medic al HARRISON 2 needed for Branch SENSOR) Kit Other. flash 2021-0 Yes [id number] 1{kit} 1 Kit 3 [place] glucose 9-26 (three) ity of scanning 00:00: times [place] reader 00 daily as Medical (FREESTYLE needed for Bra nch HARRISON 2 Other READER) (BG). [facility] flash 2021-0 Yes [id number] 1{kit} 1 Kit 3 [place] glucose 9-26 (three) ity of sensor 00:00: times [place] (FREESTYLE 00 daily as Medic al HARRISON 2 needed for Branch SENSOR) Kit Other. flash 202-0 Yes [id number] 1{kit} 1 Kit 3 [place] glucose 9-26 (three) ity of scanning 00:00: times [place] reader 00 daily as Medical (FREESTYLE needed for Bra nch HARRISON 2 Other READER) (BG). [facility] flash 202-0 Yes [id number] 1{kit} 1 Kit 3 [place] glucose 9-26 (three) ity of sensor 00:00: times [place] (FREESTYLE 00 daily as Medic al HARRISON 2 needed for Branch SENSOR) Kit Other. flash 202-0 Yes [id number] 1{kit} 1 Kit 3 [place] glucose 9-26 (three) ity of scanning 00:00: times [place] reader 00 daily as Medical (FREESTYLE needed for Bra nch HARRISON 2 Other READER) (BG). [facility] flash 2021-0 Yes [id number] 1{kit} 1 Kit 3 [place] glucose 9-26 (three) ity of sensor 00:00: times [place] (FREESTYLE 00 daily as Medic al HARRISON 2 needed for Branch SENSOR) Kit Other. flash 2021-0 Yes [id number] 1{kit} 1 Kit 3 [place] glucose 9-26 (three) ity of scanning 00:00: times [place] reader 00 daily as Medical (FREESTYLE needed for Bra nch HARRISON 2 Other READER) (BG). [facility] flash 2021-0 Yes [id number] 1{kit} 1 Kit 3 [place] glucose 9-26 (three) ity of sensor 00:00: times [place] (FREESTYLE 00 daily as Medic al HARRISON 2 needed for Branch SENSOR) Kit Other. flash 2022-0 Yes [id number] 1{kit} 1 Kit 3 [place] glucose 9-26 (three) ity of scanning 00:00: times [place] reader 00 daily as Medical (FREESTYLE needed for Bra nch HARRISON 2 Other READER) (BG). [facility] flash 202-0 Yes [id number] 1{kit} 1 Kit 3 [place] glucose 9-26 (three) ity of sensor 00:00: times [place] (FREESTYLE 00 daily as Medic al HARRISON 2 needed for Branch SENSOR) Kit Other. flash 202-0 Yes [id number] 1{kit} 1 Kit 3 [place] glucose 9-26 (three) ity of scanning 00:00: times [place] reader 00 daily as Medical (FREESTYLE needed for Bra nch HARRISON 2 Other READER) (BG). [facility] flash 2021-0 Yes [id number] 1{kit} 1 Kit 3 [place] glucose 9-26 (three) ity of sensor 00:00: times [place] (FREESTYLE 00 daily as Medic al HARRISON 2 needed for Branch SENSOR) Kit Other. flash 2021-0 Yes [id number] 1{kit} 1 Kit 3 [place] glucose 9-26 (three) ity of scanning 00:00: times [place] reader 00 daily as Medical (FREESTYLE needed for Bra nch HARRISON 2 Other READER) (BG). [facility] flash 2021- Yes [id number] 1{kit} 1 Kit 3 [place] glucose 9-26 (three) ity of sensor 00:00: times [place] (FREESTYLE 00 daily as Medic al HARRISON 2 needed for Branch SENSOR) Kit Other. flash 2021- Yes [id number] 1{kit} 1 Kit 3 [place] glucose 9-26 (three) ity of scanning 00:00: times [place] reader 00 daily as Medical (FREESTYLE needed for Bra nch HARRISON 2 Other READER) (BG). [facility] flash 2021- Yes [id number] 1{kit} 1 Kit 3 [place] glucose 9-26 (three) ity of sensor 00:00: times [place] (FREESTYLE 00 daily as Medic al HARRISON 2 needed for Branch SENSOR) Kit Other. flash 2021-0 Yes [id number] 1{kit} 1 Kit 3 [place] glucose 9-26 (three) ity of scanning 00:00: times [place] reader 00 daily as Medical (FREESTYLE needed for Bra nch HARRISON 2 Other READER) (BG). [facility] flash 2021-0 Yes [id number] 1{kit} 1 Kit 3 [place] glucose 9-26 (three) ity of sensor 00:00: times [place] (FREESTYLE 00 daily as Medic al HARRISON 2 needed for Branch SENSOR) Kit Other. flash 202-0 Yes [id number] 1{kit} 1 Kit 3 [place] glucose 9-26 (three) ity of scanning 00:00: times [place] reader 00 daily as Medical (FREESTYLE needed for Bra nch HARRISON 2 Other READER) (BG). [facility] flash 2021-0 Yes [id number] 1{kit} 1 Kit 3 [place] glucose 9-26 (three) ity of sensor 00:00: times [place] (FREESTYLE 00 daily as Medic al HARRISON 2 needed for Branch SENSOR) Kit Other. flash 2021-0 Yes [id number] 1{kit} 1 Kit 3 [place] glucose 9-26 (three) ity of scanning 00:00: times [place] reader 00 daily as Medical (FREESTYLE needed for Bra nch HARRISON 2 Other READER) (BG). [facility] flash 2021-0 Yes [id number] 1{kit} 1 Kit 3 [place] glucose 9-26 (three) ity of sensor 00:00: times [place] (FREESTYLE 00 daily as Medic al HARRISON 2 needed for Branch SENSOR) Kit Other. flash 2021-0 Yes [id number] 1{kit} 1 Kit 3 [place] glucose 9-26 (three) ity of scanning 00:00: times [place] reader 00 daily as Medical (FREESTYLE needed for Bra nch HARRISON 2 Other READER) (BG). [facility] flash 2021-0 Yes [id number] 1{kit} 1 Kit 3 [place] glucose 9-26 (three) ity of sensor 00:00: times [place] (FREESTYLE 00 daily as Medic al HARRISON 2 needed for Branch SENSOR) Kit Other. flash 2021-0 Yes [id number] 1{kit} 1 Kit 3 [place] glucose 9-26 (three) ity of scanning 00:00: times [place] reader 00 daily as Medical (FREESTYLE needed for Bra nch HARRISON 2 Other READER) (BG). [facility] flash 202-0 Yes [id number] 1{kit} 1 Kit 3 [place] glucose 9-26 (three) ity of sensor 00:00: times [place] (FREESTYLE 00 daily as Medic al HARRISON 2 needed for Branch SENSOR) Kit Other. flash 202-0 Yes [id number] 1{kit} 1 Kit 3 [place] glucose 9-26 (three) ity of scanning 00:00: times [place] reader 00 daily as Medical (FREESTYLE needed for Bra nch HARRISON 2 Other READER) (BG). [facility] flash 2021-0 Yes [id number] 1{kit} 1 Kit 3 [place] glucose 9-26 (three) ity of sensor 00:00: times [place] (FREESTYLE 00 daily as Medic al HARRISON 2 needed for Branch SENSOR) Kit Other. flash 2021-0 Yes [id number] 1{kit} 1 Kit 3 [place] glucose 9-26 (three) ity of scanning 00:00: times [place] reader 00 daily as Medical (FREESTYLE needed for Bra nch HARRISON 2 Other READER) (BG). [facility] flash 2021-0 Yes [id number] 1{kit} 1 Kit 3 [place] glucose 9-26 (three) ity of sensor 00:00: times [place] (FREESTYLE 00 daily as Medic al HARRISON 2 needed for Branch SENSOR) Kit Other. flash 2021- Yes [id number] 1{kit} 1 Kit 3 [place] glucose 9-26 (three) ity of scanning 00:00: times [place] reader 00 daily as Medical (FREESTYLE needed for Bra nch HARRISON 2 Other READER) (BG). [facility] flash 2021-0 Yes [id number] 1{kit} 1 Kit 3 [place] glucose 9-26 (three) ity of sensor 00:00: times [place] (FREESTYLE 00 daily as Medic al HARRISON 2 needed for Branch SENSOR) Kit Other. flash 2021-0 Yes [id number] 1{kit} 1 Kit 3 [place] glucose 9-26 (three) ity of scanning 00:00: times [place] reader 00 daily as Medical (FREESTYLE needed for Bra nch HARRISON 2 Other READER) (BG). [facility] flash 2021-0 Yes [id number] 1{kit} 1 Kit 3 [place] glucose 9-26 (three) ity of sensor 00:00: times [place] (FREESTYLE 00 daily as Medic al HARRISON 2 needed for Branch SENSOR) Kit Other. flash 202-0 Yes [id number] 1{kit} 1 Kit 3 [place] glucose 9-26 (three) ity of scanning 00:00: times [place] reader 00 daily as Medical (FREESTYLE needed for Bra nch HARRISON 2 Other READER) (BG). [facility] flash 2021-0 Yes [id number] 1{kit} 1 Kit 3 [place] glucose 9-26 (three) ity of sensor 00:00: times [place] (FREESTYLE 00 daily as Medic al HARRISON 2 needed for Branch SENSOR) Kit Other. flash 2021-0 Yes [id number] 1{kit} 1 Kit 3 [place] glucose 9-26 (three) ity of scanning 00:00: times [place] reader 00 daily as Medical (FREESTYLE needed for Bra nch HARRISON 2 Other READER) (BG). [facility] flash 2021- Yes [id number] 1{kit} 1 Kit 3 [place] glucose 9-26 (three) ity of sensor 00:00: times [place] (FREESTYLE 00 daily as Medic al HARRISON 2 needed for Branch SENSOR) Kit Other. flash Yes [id number] 1{kit} 1 Kit 3 [place] glucose 9-26 (three) ity of scanning 00:00: times [place] reader 00 daily as Medical (FREESTYLE needed for Bra nch HARRISON 2 Other READER) (BG). [facility] flash 2021- Yes [id number] 1{kit} 1 Kit 3 [place] glucose 9-26 (three) ity of sensor 00:00: times [place] (FREESTYLE 00 daily as Medic al HARRISON 2 needed for Branch SENSOR) Kit Other. flash 2021-0 Yes [id number] 1{kit} 1 Kit 3 [place] glucose 9-26 (three) ity of scanning 00:00: times [place] reader 00 daily as Medical (FREESTYLE needed for Bra nch HARRISON 2 Other READER) (BG). [facility] flash 2021-0 Yes [id number] 1{kit} 1 Kit 3 [place] glucose 9-26 (three) ity of sensor 00:00: times [place] (FREESTYLE 00 daily as Medic al HARRISON 2 needed for Branch SENSOR) Kit Other. flash 202-0 Yes [id number] 1{kit} 1 Kit 3 [place] glucose 9-26 (three) ity of scanning 00:00: times [place] reader 00 daily as Medical (FREESTYLE needed for Bra nch HARRISON 2 Other READER) (BG). [facility] flash 202-0 Yes [id number] 1{kit} 1 Kit 3 [place] glucose 9-26 (three) ity of sensor 00:00: times [place] (FREESTYLE 00 daily as Medic al HARRISON 2 needed for Branch SENSOR) Kit Other. flash 2021-0 Yes [id number] 1{kit} 1 Kit 3 [place] glucose 9-26 (three) ity of scanning 00:00: times [place] reader 00 daily as Medical (FREESTYLE needed for Bra nch HARRISON 2 Other READER) (BG). [facility] flash 2021-0 Yes [id number] 1{kit} 1 Kit 3 [place] glucose 9-26 (three) ity of sensor 00:00: times [place] (FREESTYLE 00 daily as Medic al HARRISON 2 needed for Branch SENSOR) Kit Other. flash 2021-0 Yes [id number] 1{kit} 1 Kit 3 [place] glucose 9-26 (three) ity of scanning 00:00: times [place] reader 00 daily as Medical (FREESTYLE needed for Bra nch HARRISON 2 Other READER) (BG). [facility] flash 2021-0 Yes [id number] 1{kit} 1 Kit 3 [place] glucose 9-26 (three) ity of sensor 00:00: times [place] (FREESTYLE 00 daily as Medic al HARRISON 2 needed for Branch SENSOR) Kit Other. flash 2021-0 Yes [id number] 1{kit} 1 Kit 3 [place] glucose 9-26 (three) ity of scanning 00:00: times [place] reader 00 daily as Medical (FREESTYLE needed for Bra nch HARRISON 2 Other READER) (BG). [facility] flash 2021-0 Yes [id number] 1{kit} 1 Kit 3 [place] glucose 9-26 (three) ity of sensor 00:00: times [place] (FREESTYLE 00 daily as Medic al HARRISON 2 needed for Branch SENSOR) Kit Other. flash 2022-0 Yes [id number] 1{kit} 1 Kit 3 [place] glucose 9-26 (three) ity of scanning 00:00: times [place] reader 00 daily as Medical (FREESTYLE needed for Bra nch HARRISON 2 Other READER) (BG). [facility] flash 202-0 Yes [id number] 1{kit} 1 Kit 3 [place] glucose 9-26 (three) ity of sensor 00:00: times [place] (FREESTYLE 00 daily as Medic al HARRISON 2 needed for Branch SENSOR) Kit Other. flash 202-0 Yes [id number] 1{kit} 1 Kit 3 [place] glucose 9-26 (three) ity of scanning 00:00: times [place] reader 00 daily as Medical (FREESTYLE needed for Bra nch HARRISON 2 Other READER) (BG). [facility] flash 202-0 Yes [id number] 1{kit} 1 Kit 3 [place] glucose 9-26 (three) ity of sensor 00:00: times [place] (FREESTYLE 00 daily as Medic al HARRISON 2 needed for Branch SENSOR) Kit Other. flash 202-0 Yes [id number] 1{kit} 1 Kit 3 [place] glucose 9-26 (three) ity of scanning 00:00: times [place] reader 00 daily as Medical (FREESTYLE needed for Bra nch HARRISON 2 Other READER) (BG). [facility] flash 2021-0 Yes [id number] 1{kit} 1 Kit 3 [place] glucose 9-26 (three) ity of sensor 00:00: times [place] (FREESTYLE 00 daily as Medic al HARRISON 2 needed for Branch SENSOR) Kit Other. flash 2021-0 Yes [id number] 1{kit} 1 Kit 3 [place] glucose 9-26 (three) ity of scanning 00:00: times [place] reader 00 daily as Medical (FREESTYLE needed for Bra nch HARRISON 2 Other READER) (BG). [facility] flash 2021-0 Yes [id number] 1{kit} 1 Kit 3 [place] glucose 9-26 (three) ity of sensor 00:00: times [place] (FREESTYLE 00 daily as Medic al HARRISON 2 needed for Branch SENSOR) Kit Other. flash 2022-0 Yes [id number] 1{kit} 1 Kit 3 [place] glucose 9-26 (three) ity of scanning 00:00: times [place] reader 00 daily as Medical (FREESTYLE needed for Bra nch HARRISON 2 Other READER) (BG). [facility] flash 202-0 Yes [id number] 1{kit} 1 Kit 3 [place] glucose 9-26 (three) ity of sensor 00:00: times [place] (FREESTYLE 00 daily as Medic al HARRISON 2 needed for Branch SENSOR) Kit Other. flash 202-0 Yes [id number] 1{kit} 1 Kit 3 [place] glucose 9-26 (three) ity of scanning 00:00: times [place] reader 00 daily as Medical (FREESTYLE needed for Bra [facility] HARRISON 2 Other READER) (BG). [facility] flash 2021-0 Yes [id number] 1{kit} 1 Kit 3 [place] glucose 9-26 (three) ity of sensor 00:00: times [place] (FREESTYLE 00 daily as Medic al HARRISON 2 needed for Branch SENSOR) Kit Other. flash 2021-0 Yes [id number] 1{kit} 1 Kit 3 [place] glucose 9-26 (three) ity of scanning 00:00: times [place] reader 00 daily as Medical (FREESTYLE needed for Bra [facility] HARRISON 2 Other READER) (BG). [facility] ferrous 2021-0 2023- No [id number] 325mg Take 1 [place] sulfate 325 9-26 04-24 tablet by it y of mg (65 mg 00:00: 00:00 mouth in [place] as iron) 00 :00 the Medical tablet morning Branch and 1 tablet in the evening. fluconazole 0 Yes [id number] 200mg Take 1 [facility] (DIFLUCAN) 8-24 tablet by ity of 200 mg 00:00: mouth in [place] tablet 00 the Medical morning. Branch fluconazole 0 Yes [id number] 200mg Take 1 [facility] (DIFLUCAN) 8-24 tablet by ity of 200 mg 00:00: mouth in [place] tablet 00 the Medical morning. Branch fluconazole 0 Yes [id number] 200mg Take 1 [facility] (DIFLUCAN) 8-24 tablet by ity of 200 mg 00:00: mouth in [place] tablet 00 the Medical morning. Branch fluconazole 0 Yes [id number] 200mg Take 1 [facility] (DIFLUCAN) 8-24 tablet by ity of 200 mg 00:00: mouth in [place] tablet 00 the Medical morning. Branch fluconazole 2021-0 Yes [id number] 200mg Take 1 [facility] (DIFLUCAN) 8-24 tablet by ity of 200 mg 00:00: mouth in [place] tablet 00 the Medical morning. Branch fluconazole 0 Yes [id number] 200mg Take 1 [facility] (DIFLUCAN) 8-24 tablet by ity of 200 mg 00:00: mouth in [place] tablet 00 the Medical morning. Branch fluconazole 2022-0 Yes [id number] 200mg Take 1 [facility] (DIFLUCAN) 8-24 tablet by ity of 200 mg 00:00: mouth in [place] tablet 00 the Medical morning. Branch fluconazole 2022-0 Yes [id number] 200mg Take 1 [facility] (DIFLUCAN) 8-24 tablet by ity of 200 mg 00:00: mouth in [place] tablet 00 the Medical morning. Branch fluconazole 2022-0 Yes [id number] 200mg Take 1 [facility] (DIFLUCAN) 8-24 tablet by ity of 200 mg 00:00: mouth in [place] tablet 00 the Medical morning. Branch fluconazole 2022-0 Yes [id number] 200mg Take 1 [facility] (DIFLUCAN) 8-24 tablet by ity of 200 mg 00:00: mouth in [place] tablet 00 the Medical morning. Branch fluconazole 2-0 Yes [id number] 200mg Take 1 [facility] (DIFLUCAN) 8-24 tablet by ity of 200 mg 00:00: mouth in [place] tablet 00 the Medical morning. Branch fluconazole 2-0 Yes [id number] 200mg Take 1 [facility] (DIFLUCAN) 8-24 tablet by ity of 200 mg 00:00: mouth in [place] tablet 00 the Medical morning. Branch fluconazole 2-0 Yes [id number] 200mg Take 1 [facility] (DIFLUCAN) 8-24 tablet by ity of 200 mg 00:00: mouth in [place] tablet 00 the Medical morning. Branch fluconazole 2022-0 Yes [id number] 200mg Take 1 [facility] (DIFLUCAN) 8-24 tablet by ity of 200 mg 00:00: mouth in [place] tablet 00 the Medical morning. Branch fluconazole 2022-0 Yes [id number] 200mg Take 1 [facility] (DIFLUCAN) 8-24 tablet by ity of 200 mg 00:00: mouth in [place] tablet 00 the Medical morning. Branch fluconazole 2022-0 Yes [id number] 200mg Take 1 [facility] (DIFLUCAN) 8-24 tablet by ity of 200 mg 00:00: mouth in [place] tablet 00 the Medical morning. Branch fluconazole 2022-0 Yes [id number] 200mg Take 1 [facility] (DIFLUCAN) 8-24 tablet by ity of 200 mg 00:00: mouth in [place] tablet 00 the Medical morning. Branch fluconazole 2022-0 Yes [id number] 200mg Take 1 [facility] (DIFLUCAN) 8-24 tablet by ity of 200 mg 00:00: mouth in [place] tablet 00 the Medical morning. Branch fluconazole 2022-0 Yes [id number] 200mg Take 1 [facility] (DIFLUCAN) 8-24 tablet by ity of 200 mg 00:00: mouth in [place] tablet 00 the Medical morning. Branch fluconazole 2022-0 Yes [id number] 200mg Take 1 [facility] (DIFLUCAN) 8-24 tablet by ity of 200 mg 00:00: mouth in [place] tablet 00 the Medical morning. Branch fluconazole 2022-0 Yes [id number] 200mg Take 1 [facility] (DIFLUCAN) 8-24 tablet by ity of 200 mg 00:00: mouth in [place] tablet 00 the Medical morning. Branch fluconazole 2-0 Yes [id number] 200mg Take 1 [facility] (DIFLUCAN) 8-24 tablet by ity of 200 mg 00:00: mouth in [place] tablet 00 the Medical morning. Branch fluconazole 2-0 Yes [id number] 200mg Take 1 [facility] (DIFLUCAN) 8-24 tablet by ity of 200 mg 00:00: mouth in [place] tablet 00 the Medical morning. Branch fluconazole 2-0 Yes [id number] 200mg Take 1 [facility] (DIFLUCAN) 8-24 tablet by ity of 200 mg 00:00: mouth in [place] tablet 00 the Medical morning. Branch fluconazole 2-0 Yes [id number] 200mg Take 1 [facility] (DIFLUCAN) 8-24 tablet by ity of 200 mg 00:00: mouth in [place] tablet 00 the Medical morning. Branch fluconazole 2022-0 Yes [id number] 200mg Take 1 [facility] (DIFLUCAN) 8-24 tablet by ity of 200 mg 00:00: mouth in [place] tablet 00 the Medical morning. Branch fluconazole 2022-0 Yes [id number] 200mg Take 1 [facility] (DIFLUCAN) 8-24 tablet by ity of 200 mg 00:00: mouth in [place] tablet 00 the Medical morning. Branch fluconazole 2022-0 Yes [id number] 200mg Take 1 [facility] (DIFLUCAN) 8-24 tablet by ity of 200 mg 00:00: mouth in [place] tablet 00 the Medical morning. Branch fluconazole 2022-0 Yes [id number] 200mg Take 1 [facility] (DIFLUCAN) 8-24 tablet by ity of 200 mg 00:00: mouth in [place] tablet 00 the Medical morning. Branch fluconazole 2022-0 Yes [id number] 200mg Take 1 [facility] (DIFLUCAN) 8-24 tablet by ity of 200 mg 00:00: mouth in [place] tablet 00 the Medical morning. Branch fluconazole 2022-0 Yes [id number] 200mg Take 1 [facility] (DIFLUCAN) 8-24 tablet by ity of 200 mg 00:00: mouth in [place] tablet 00 the Medical morning. Branch fluconazole 2022-0 Yes [id number] 200mg Take 1 [facility] (DIFLUCAN) 8-24 tablet by ity of 200 mg 00:00: mouth in [place] tablet 00 the Medical morning. Branch fluconazole 2022-0 Yes [id number] 200mg Take 1 [facility] (DIFLUCAN) 8-24 tablet by ity of 200 mg 00:00: mouth in [place] tablet 00 the Medical morning. Branch fluconazole 2022-0 Yes [id number] 200mg Take 1 [facility] (DIFLUCAN) 8-24 tablet by ity of 200 mg 00:00: mouth in [place] tablet 00 the Medical morning. Branch fluconazole 2022-0 Yes [id number] 200mg Take 1 [facility] (DIFLUCAN) 8-24 tablet by ity of 200 mg 00:00: mouth in [place] tablet 00 the Medical morning. Branch fluconazole 2022-0 Yes [id number] 200mg Take 1 [facility] (DIFLUCAN) 8-24 tablet by ity of 200 mg 00:00: mouth in [place] tablet 00 the Medical morning. Branch fluconazole 2022-0 Yes [id number] 200mg Take 1 [facility] (DIFLUCAN) 8-24 tablet by ity of 200 mg 00:00: mouth in [place] tablet 00 the Medical morning. Branch fluconazole 2022-0 Yes [id number] 200mg Take 1 [facility] (DIFLUCAN) 8-24 tablet by ity of 200 mg 00:00: mouth in [place] tablet 00 the Medical morning. Branch fluconazole 2022-0 Yes [id number] 200mg Take 1 [facility] (DIFLUCAN) 8-24 tablet by ity of 200 mg 00:00: mouth in [place] tablet 00 the Medical morning. Branch fluconazole 2022-0 Yes [id number] 200mg Take 1 [facility] (DIFLUCAN) 8-24 tablet by ity of 200 mg 00:00: mouth in [place] tablet 00 the Medical morning. Branch fluconazole 2021-0 Yes [id number] 200mg Take 1 [facility] (DIFLUCAN) 8-24 tablet by ity of 200 mg 00:00: mouth in [place] tablet 00 the Medical morning. Branch fluconazole 2021-0 Yes [id number] 200mg Take 1 [facility] (DIFLUCAN) 8-24 tablet by ity of 200 mg 00:00: mouth in [place] tablet 00 the Medical morning. Branch fluconazole 2021-0 Yes [id number] 200mg Take 1 [facility] (DIFLUCAN) 8-24 tablet by ity of 200 mg 00:00: mouth in [place] tablet 00 the Medical morning. Branch fluconazole 0 Yes [id number] 200mg Take 1 [facility] (DIFLUCAN) 8-24 tablet by ity of 200 mg 00:00: mouth in [place] tablet 00 the Medical morning. Branch fluconazole 0 Yes [id number] 200mg Take 1 [facility] (DIFLUCAN) 8-24 tablet by ity of 200 mg 00:00: mouth in [place] tablet 00 the Medical morning. Branch fluconazole 0 Yes [id number] 200mg Take 1 [facility] (DIFLUCAN) 8-24 tablet by ity of 200 mg 00:00: mouth in [place] tablet 00 the Medical morning. Branch fluconazole 2021-0 2022- No [id number] 200mg Take 1 [facility] (DIFLUCAN) 8-24 - tablet by ity of 200 mg 00:00: 00:00 mouth in [place] tablet 00 :00 the Medical morning. Branch fluconazole 2021-0 2022- No [id number] 200mg Take 1 [facility] (DIFLUCAN) -20 10- tablet by ity of 200 mg 00:00: 00:00 mouth in [place] tablet 00 :00 the Medical morning. Branch fluconazole 2021-0 2022- No [id number] 200mg Take 1 [facility] (DIFLUCAN) 8- tablet by ity of 200 mg 00:00: 00:00 mouth in [place] tablet 00 :00 the Medical morning. Branch LEVEMIR 0 Yes [id number] 50U INJECT 50 U nivers FLEXTOUCH 8-19 UNITS ity of U-100 00:00: UNDER THE [place] INSULN 100 00 SKIN 2 Medical unit/mL (3 (TWO) Branch mL) TIMES injection DAILY WITH MEALS. LEVEMIR Yes [id number] 50U INJECT 50 U nivers FLEXTOUCH 8-19 UNITS ity of U-100 00:00: UNDER THE [place] INSULN 100 00 SKIN 2 Medical unit/mL (3 (TWO) Branch mL) TIMES injection DAILY WITH MEALS. LEVEMIR Yes [id number] 50U INJECT 50 U nivers FLEXTOUCH 8-19 UNITS ity of U-100 00:00: UNDER THE [place] INSULN 100 00 SKIN 2 Medical unit/mL (3 (TWO) Branch mL) TIMES injection DAILY WITH MEALS. LEVEMIR Yes [id number] 50U INJECT 50 U nivers FLEXTOUCH 8-19 UNITS ity of U-100 00:00: UNDER THE [place] INSULN 100 00 SKIN 2 Medical unit/mL (3 (TWO) Branch mL) TIMES injection DAILY WITH MEALS. LEVEMIR Yes [id number] 50U INJECT 50 U nivers FLEXTOUCH 8-19 UNITS ity of U-100 00:00: UNDER THE [place] INSULN 100 00 SKIN 2 Medical unit/mL (3 (TWO) Branch mL) TIMES injection DAILY WITH MEALS. LEVEMIR Yes [id number] 50U INJECT 50 U nivers FLEXTOUCH 8-19 UNITS ity of U-100 00:00: UNDER THE [place] INSULN 100 00 SKIN 2 Medical unit/mL (3 (TWO) Branch mL) TIMES injection DAILY WITH MEALS. LEVEMIR Yes [id number] 50U INJECT 50 [facility] FLEXTOUCH 8-19 UNITS ity of U-100 00:00: UNDER THE [place] INSULN 100 00 SKIN 2 Medical unit/mL (3 (TWO) Branch mL) TIMES injection DAILY WITH MEALS. LEVEMIR Yes [id number] 50U INJECT 50 [facility] FLEXTOUCH 8-19 UNITS ity of U-100 00:00: UNDER THE [place] INSULN 100 00 SKIN 2 Medical unit/mL (3 (TWO) Branch mL) TIMES injection DAILY WITH MEALS. LEVEMIR Yes [id number] 50U INJECT 50 [facility] FLEXTOUCH 8-19 UNITS ity of U-100 00:00: UNDER THE [place] INSULN 100 00 SKIN 2 Medical unit/mL (3 (TWO) Branch mL) TIMES injection DAILY WITH MEALS. LEVEMIR Yes [id number] 50U INJECT 50 [facility] FLEXTOUCH 8-19 UNITS ity of U-100 00:00: UNDER THE [place] INSULN 100 00 SKIN 2 Medical unit/mL (3 (TWO) Branch mL) TIMES injection DAILY WITH MEALS. LEVEMIR Yes [id number] 50U INJECT 50 [facility] FLEXTOUCH 8-19 UNITS ity of U-100 00:00: UNDER THE [place] INSULN 100 00 SKIN 2 Medical unit/mL (3 (TWO) Branch mL) TIMES injection DAILY WITH MEALS. LEVEMIR Yes [id number] 50U INJECT 50 [facility] FLEXTOUCH 8-19 UNITS ity of U-100 00:00: UNDER THE [place] INSULN 100 00 SKIN 2 Medical unit/mL (3 (TWO) Branch mL) TIMES injection DAILY WITH MEALS. LEVEMIR Yes [id number] 50U INJECT 50 [facility] FLEXTOUCH 8-19 UNITS ity of U-100 00:00: UNDER THE [place] INSULN 100 00 SKIN 2 Medical unit/mL (3 (TWO) Branch mL) TIMES injection DAILY WITH MEALS. LEVEMIR Yes [id number] 50U INJECT 50 [facility] FLEXTOUCH 8-19 UNITS ity of U-100 00:00: UNDER THE [place] INSULN 100 00 SKIN 2 Medical unit/mL (3 (TWO) Branch mL) TIMES injection DAILY WITH MEALS. LEVEMIR Yes [id number] 50U INJECT 50 [facility] FLEXTOUCH 8-19 UNITS ity of U-100 00:00: UNDER THE [place] INSULN 100 00 SKIN 2 Medical unit/mL (3 (TWO) Branch mL) TIMES injection DAILY WITH MEALS. LEVEMIR Yes [id number] 50U INJECT 50 [facility] FLEXTOUCH 8-19 UNITS ity of U-100 00:00: UNDER THE [place] INSULN 100 00 SKIN 2 Medical unit/mL (3 (TWO) Branch mL) TIMES injection DAILY WITH MEALS. LEVEMIR 2021- No [id number] 50U INJECT 50 [facility] FLEXTOUCH 8-19 11-26 UNITS ity of U-100 00:00: 00:00 UNDER THE [place] INSULN 100 00 :00 SKIN 2 Medical unit/mL (3 (TWO) Branch mL) TIMES injection DAILY WITH MEALS. LEVEMIR 2021- No [id number] 50U INJECT 50 [facility] FLEXTOUCH 8-19 11-26 UNITS ity of U-100 00:00: 00:00 UNDER THE [place] INSULN 100 00 :00 SKIN 2 Medical unit/mL (3 (TWO) Branch mL) TIMES injection DAILY WITH MEALS. phenazopyri Yes Take by [facility] vers dine HCl 8-12 mouth. ity of (AZO ORAL) 09:06: [place] [address] Medical Branch calcium Yes 1{tbl} Take 1 [...] Use 1 Un [facility] propionate 8-12 } [place] in ity o f (FLONASE 09:06: each [place] NASAL) 53 nostril Medical daily. Branch loratadine Yes 10mg Take 10 mg U nivers (CLARITIN 8-12 by mouth ity of ORAL) 09:06: daily. As [place] 53 needed Medical Branch aspirin 81 Yes 81mg Take 81 mg U nivers mg EC 8-12 by mouth ity of tablet 09:06: in the [place] 53 morning. Medical Branch FIBER Yes 1{tbl} Take 1 [facility] CHOICE ORAL 8-12 tablet by ity of 09:06: mouth. [place] [address] Medical Branch phenazopyri Yes Take by [facility] vers dine HCl 8-12 mouth. ity of (AZO ORAL) 09:06: [place] [address] Medical Branch calcium Yes 1{tbl} Take 1 [...] Use 1 Un [place] propionate 8-12 } [place] in ity o f (FLONASE 09:06: each [place] NASAL) 53 nostril Medical daily. Branch loratadine Yes 10mg Take 10 mg U nivers (CLARITIN 8-12 by mouth ity of ORAL) 09:06: daily. As [place] 53 needed Medical Branch aspirin 81 Yes 81mg Take 81 mg U nivers mg EC 8-12 by mouth ity of tablet 09:06: in the [place] 53 morning. Medical Branch FIBER Yes 1{tbl} Take 1 [facility] CHOICE ORAL 8-12 tablet by ity of 09:06: mouth. [place] [address] Medical Branch phenazopyri Yes Take by [facility] vers dine HCl 8-12 mouth. ity of (AZO ORAL) 09:06: [place] [address] Medical Branch calcium Yes 1{tbl} Take 1 Univer s carbonate/v 8-12 tablet by ity of itamin D3 09:06: mouth [place] (VITAMIN 53 daily. Medical D-3 ORAL) Branch [...] Use 1 Un [place] propionate 8-12 } [place] in ity o f (FLONASE 09:06: each [place] NASAL) 53 nostril Medical daily. Branch loratadine Yes 10mg Take 10 mg U nivers (CLARITIN 8-12 by mouth ity of ORAL) 09:06: daily. As [place] [address] needed Medical Branch aspirin 81 Yes 81mg Take 81 mg U nivers mg EC 8-12 by mouth ity of tablet 09:06: in the [place] [address] morning. Medical Branch FIBER Yes 1{tbl} Take 1 [facility] CHOICE ORAL 8-12 tablet by ity of 09:06: mouth. [place] [address] Medical Branch phenazopyri Yes Take by [facility] vers dine HCl 8-12 mouth. ity of (AZO ORAL) 09:06: [place] [address] Medical Branch calcium Yes 1{tbl} Take 1 Univer s carbonate/v 8-12 tablet by ity of itamin D3 09:06: mouth [place] (VITAMIN 53 daily. Medical D-3 ORAL) Branch multivit-mi Yes 1{tbl} Take 1 Un [facility] n/iron/foli 8-12 tablet by ity of c/lutein 09:06: mouth [place] (CENTRUM 53 daily. Medical SILVER Branch WOMEN ORAL) cyanocobala Yes 1{tbl} Take 1 Un [place] min, 8-12 tablet by ity of vitamin 09:06: mouth [place] B-12, 53 daily. Medical (VITAMIN Branch B12 ORAL) fluticasone Yes 1{spray Use 1 Un [place] propionate 8-12 } [place] in ity o f (FLONASE 09:06: each [place] NASAL) 53 nostril Medical daily. Branch loratadine Yes 10mg Take 10 mg U nivers (CLARITIN 8-12 by mouth ity of ORAL) 09:06: daily. As [place] [address] needed Medical Branch aspirin 81 Yes 81mg Take 81 mg U nivers mg EC 8-12 by mouth ity of tablet 09:06: in the [place] [address] morning. Medical Branch FIBER Yes 1{tbl} Take 1 [facility] CHOICE ORAL 8-12 tablet by ity of 09:06: mouth. [place] [address] Medical Branch GABAPENTIN Yes [id number] TAKE 1 [facility] 100 mg 7-15 CAPSULE BY ity of capsule 00:00: MOUTH [place] 00 THREE Medical TIMES A Branch DAY GABAPENTIN Yes [id number] TAKE 1 [facility] 100 mg 7-15 CAPSULE BY ity of capsule 00:00: MOUTH 00 THREE Medical TIMES A Branch DAY GABAPENTIN 2022-0 Yes [id number] TAKE 1 [facility] 100 mg 7-15 CAPSULE BY ity of capsule 00:00: MOUTH THREE Medical TIMES A Branch DAY GABAPENTIN 2022-0 Yes [id number] TAKE 1 [facility] 100 mg 7-15 CAPSULE BY ity of capsule 00:00: MOUTH THREE Medical TIMES A Branch DAY GABAPENTIN 2022-0 Yes [id number] TAKE 1 [facility] 100 mg 7-15 CAPSULE BY ity of capsule 00:00: MOUTH THREE Medical TIMES A Branch DAY GABAPENTIN 2022-0 Yes [id number] TAKE 1 [facility] 100 mg 7-15 CAPSULE BY ity of capsule 00:00: MOUTH THREE Medical TIMES A Branch DAY GABAPENTIN 2022-0 Yes [id number] TAKE 1 [facility] 100 mg 7-15 CAPSULE BY ity of capsule 00:00: MOUTH THREE Medical TIMES A Branch DAY GABAPENTIN 2022-0 Yes [id number] TAKE 1 [facility] 100 mg 7-15 CAPSULE BY ity of capsule 00:00: MOUTH THREE Medical TIMES A Branch DAY GABAPENTIN 2022-0 Yes [id number] TAKE 1 [facility] 100 mg 7-15 CAPSULE BY ity of capsule 00:00: MOUTH THREE Medical TIMES A Branch DAY GABAPENTIN 2022-0 Yes [id number] TAKE 1 [facility] 100 mg 7-15 CAPSULE BY ity of capsule 00:00: MOUTH THREE Medical TIMES A Branch DAY GABAPENTIN 2022-0 Yes [id number] TAKE 1 [facility] 100 mg 7-15 CAPSULE BY ity of capsule 00:00: MOUTH THREE Medical TIMES A Branch DAY GABAPENTIN 2022-0 Yes [id number] TAKE 1 [facility] 100 mg 7-15 CAPSULE BY ity of capsule 00:00: MOUTH THREE Medical TIMES A Branch DAY GABAPENTIN 2022-0 Yes [id number] TAKE 1 [facility] 100 mg 7-15 CAPSULE BY ity of capsule 00:00: MOUTH THREE Medical TIMES A Branch DAY GABAPENTIN 2022-0 Yes [id number] TAKE 1 [facility] 100 mg 7-15 CAPSULE BY ity of capsule 00:00: MOUTH THREE Medical TIMES A Branch DAY GABAPENTIN 2022-0 Yes [id number] TAKE 1 [facility] 100 mg 7-15 CAPSULE BY ity of capsule 00:00: MOUTH 00 THREE Medical TIMES A Branch DAY GABAPENTIN 2022-0 Yes [id number] TAKE 1 [facility] 100 mg 7-15 CAPSULE BY ity of capsule 00:00: MOUTH [place] 00 THREE Medical TIMES A Branch DAY GABAPENTIN 2022-0 Yes [id number] TAKE 1 [facility] 100 mg 7-15 CAPSULE BY ity of capsule 00:00: MOUTH [place] 00 THREE Medical TIMES A Branch DAY GABAPENTIN 2022-0 Yes [id number] TAKE 1 [facility] 100 mg 7-15 CAPSULE BY ity of capsule 00:00: MOUTH [place] 00 THREE Medical TIMES A Branch DAY GABAPENTIN 2022-0 Yes [id number] TAKE 1 [facility] 100 mg 7-15 CAPSULE BY ity of capsule 00:00: MOUTH [place] 00 THREE Medical TIMES A Branch DAY GABAPENTIN 2022-0 Yes [id number] TAKE 1 [facility] 100 mg 7-15 CAPSULE BY ity of capsule 00:00: MOUTH [place] 00 THREE Medical TIMES A Branch DAY GABAPENTIN 2022-0 Yes [id number] TAKE 1 [facility] 100 mg 7-15 CAPSULE BY ity of capsule 00:00: [facility] 00 THREE Medical TIMES A Branch DAY GABAPENTIN 2022-0 Yes [id number] TAKE 1 [facility] 100 mg 7-15 CAPSULE BY ity of capsule 00:00: MOUTH [place] 00 THREE Medical TIMES A Branch DAY GABAPENTIN 2022-0 Yes [id number] TAKE 1 [facility] 100 mg 7-15 CAPSULE BY ity of capsule 00:00: MOUTH [place] 00 THREE Medical TIMES A Branch DAY GABAPENTIN 2022-0 Yes [id number] TAKE 1 [facility] 100 mg 7-15 CAPSULE BY ity of capsule 00:00: [facility] 00 THREE Medical TIMES A Branch DAY GABAPENTIN 2022-0 Yes [id number] TAKE 1 [facility] 100 mg 7-15 CAPSULE BY ity of capsule 00:00: MOUTH [place] 00 THREE Medical TIMES A Branch DAY GABAPENTIN 2022-0 2023- No [id number] TAKE 1 [facility] 100 mg 7-15 02-16 CAPSULE BY ity of capsule 00:00: 00:00 MOUTH [place] 00 :00 THREE Medical TIMES A Branch DAY LISINOPRIL- 2022-0 Yes [id number] TAKE 1 Univers HYDROCHLORO 6-02 TABLET BY ity of THIAZIDE 00:00: MOUTH [place] 20-25 mg 00 EVERY DAY Medica l per tablet Branch FLUOXETINE 2-0 Yes [id number] TAKE 1 [facility] vers 20 mg 6-02 TABLET BY ity of tablet 00:00: MOUTH [place] 00 EVERY DAY Medical Branch LISINOPRIL- 2021-0 Yes [id number] TAKE 1 [facility] HYDROCHLORO 6-02 TABLET BY ity of THIAZIDE 00:00: MOUTH [place] 20-25 mg 00 EVERY DAY Medica l per tablet Branch FLUOXETINE 2021-0 Yes [id number] TAKE 1 [facility] vers 20 mg 6-02 TABLET BY ity of tablet 00:00: MOUTH [place] 00 EVERY DAY Medical Branch LISINOPRIL- 2021-0 Yes [id number] TAKE 1 [facility] HYDROCHLORO 6-02 TABLET BY ity of THIAZIDE 00:00: MOUTH [place] 20-25 mg 00 EVERY DAY Medica l per tablet Branch FLUOXETINE 2021-0 Yes [id number] TAKE 1 [facility] vers 20 mg 6-02 TABLET BY ity of tablet 00:00: MOUTH [place] 00 EVERY DAY Medical Branch LISINOPRIL- 2021-0 Yes [id number] TAKE 1 [facility] HYDROCHLORO 6-02 TABLET BY ity of THIAZIDE 00:00: MOUTH [place] 20-25 mg 00 EVERY DAY Medica l per tablet Branch FLUOXETINE 2021-0 Yes [id number] TAKE 1 [facility] vers 20 mg 6-02 TABLET BY ity of tablet 00:00: MOUTH [place] 00 EVERY DAY Medical Branch LISINOPRIL- 2021-0 Yes [id number] TAKE 1 [facility] HYDROCHLORO 6-02 TABLET BY ity of THIAZIDE 00:00: MOUTH [place] 20-25 mg 00 EVERY DAY Medica l per tablet Branch FLUOXETINE 2021-0 Yes [id number] TAKE 1 [facility] vers 20 mg 6-02 TABLET BY ity of tablet 00:00: MOUTH [place] 00 EVERY DAY Medical Branch LISINOPRIL- 2021-0 Yes [id number] TAKE 1 [facility] HYDROCHLORO 6-02 TABLET BY ity of THIAZIDE 00:00: MOUTH [place] 20-25 mg 00 EVERY DAY Medica l per tablet Branch FLUOXETINE 2021-0 Yes [id number] TAKE 1 [facility] vers 20 mg 6-02 TABLET BY ity of tablet 00:00: MOUTH [place] 00 EVERY DAY Medical Branch LISINOPRIL- 2021-0 Yes [id number] TAKE 1 [facility] HYDROCHLORO 6-02 TABLET BY ity of THIAZIDE 00:00: MOUTH [place] 20-25 mg 00 EVERY DAY Medica l per tablet Branch FLUOXETINE 2021-0 Yes [id number] TAKE 1 [facility] vers 20 mg 6-02 TABLET BY ity of tablet 00:00: MOUTH [place] 00 EVERY DAY Medical Branch LISINOPRIL- 2021-0 Yes [id number] TAKE 1 [facility] HYDROCHLORO 6-02 TABLET BY ity of THIAZIDE 00:00: MOUTH [place] 20-25 mg 00 EVERY DAY Medica l per tablet Branch FLUOXETINE 2021-0 Yes [id number] TAKE 1 [facility] vers 20 mg 6-02 TABLET BY ity of tablet 00:00: MOUTH [place] 00 EVERY DAY Medical Branch LISINOPRIL- 2021-0 Yes [id number] TAKE 1 [facility] HYDROCHLORO 6-02 TABLET BY ity of THIAZIDE 00:00: MOUTH [place] 20-25 mg 00 EVERY DAY Medica l per tablet Branch FLUOXETINE 2021-0 Yes [id number] TAKE 1 [facility] vers 20 mg 6-02 TABLET BY ity of tablet 00:00: MOUTH [place] 00 EVERY DAY Medical Branch LISINOPRIL- 0 Yes [id number] TAKE 1 [facility] HYDROCHLORO 6-02 TABLET BY ity of THIAZIDE 00:00: MOUTH [place] 20-25 mg 00 EVERY DAY Medica l per tablet Branch FLUOXETINE 2021-0 Yes [id number] TAKE 1 [facility] vers 20 mg 6-02 TABLET BY ity of tablet 00:00: MOUTH [place] 00 EVERY DAY Medical Branch LISINOPRIL- 0 Yes [id number] TAKE 1 [facility] HYDROCHLORO 6-02 TABLET BY ity of THIAZIDE 00:00: MOUTH [place] 20-25 mg 00 EVERY DAY Medica l per tablet Branch FLUOXETINE 2021-0 Yes [id number] TAKE 1 Uni vers 20 mg 6-02 TABLET BY ity of tablet 00:00: MOUTH [place] 00 EVERY DAY Medical Branch LISINOPRIL- 2021-0 Yes [id number] TAKE 1 [facility] HYDROCHLORO 6-02 TABLET BY ity of THIAZIDE 00:00: MOUTH [place] 20-25 mg 00 EVERY DAY Medica l per tablet Branch FLUOXETINE 2021-0 Yes [id number] TAKE 1 [facility] vers 20 mg 6-02 TABLET BY ity of tablet 00:00: MOUTH [place] 00 EVERY DAY Medical Branch LISINOPRIL- 2021-0 Yes [id number] TAKE 1 [facility] HYDROCHLORO 6-02 TABLET BY ity of THIAZIDE 00:00: MOUTH [place] 20-25 mg 00 EVERY DAY Medica l per tablet Branch FLUOXETINE 2021-0 Yes [id number] TAKE 1 [facility] vers 20 mg 6-02 TABLET BY ity of tablet 00:00: MOUTH [place] 00 EVERY DAY Medical Branch LISINOPRIL- 2022-0 Yes [id number] TAKE 1 [facility] HYDROCHLORO 6-02 TABLET BY ity of THIAZIDE 00:00: MOUTH [place] 20-25 mg 00 EVERY DAY Medica l per tablet Branch FLUOXETINE 2021-0 Yes [id number] TAKE 1 [facility] vers 20 mg 6-02 TABLET BY ity of tablet 00:00: MOUTH [place] 00 EVERY DAY Medical Branch LISINOPRIL- 2021-0 Yes [id number] TAKE 1 [facility] HYDROCHLORO 6-02 TABLET BY ity of THIAZIDE 00:00: MOUTH [place] 20-25 mg 00 EVERY DAY Medica l per tablet Branch FLUOXETINE 2021-0 Yes [id number] TAKE 1 [facility] vers 20 mg 6-02 TABLET BY ity of tablet 00:00: MOUTH [place] 00 EVERY DAY Medical Branch LISINOPRIL- 2021-0 Yes [id number] TAKE 1 [facility] HYDROCHLORO 6-02 TABLET BY ity of THIAZIDE 00:00: MOUTH [place] 20-25 mg 00 EVERY DAY Medica l per tablet Branch FLUOXETINE 2021-0 Yes [id number] TAKE 1 [facility] vers 20 mg 6-02 TABLET BY ity of tablet 00:00: MOUTH [place] 00 EVERY DAY Medical Branch LISINOPRIL- 0 Yes [id number] TAKE 1 [facility] HYDROCHLORO 6-02 TABLET BY ity of THIAZIDE 00:00: MOUTH [place] 20-25 mg 00 EVERY DAY Medica l per tablet Branch FLUOXETINE 0 Yes [id number] TAKE 1 [facility] vers 20 mg 6-02 TABLET BY ity of tablet 00:00: MOUTH [place] 00 EVERY DAY Medical Branch LISINOPRIL- 2021-0 Yes [id number] TAKE 1 [facility] HYDROCHLORO 6-02 TABLET BY ity of THIAZIDE 00:00: MOUTH [place] 20-25 mg 00 EVERY DAY Medica l per tablet Branch FLUOXETINE 2021-0 Yes [id number] TAKE 1 Uni vers 20 mg 6-02 TABLET BY ity of tablet 00:00: MOUTH [place] 00 EVERY DAY Medical Branch LISINOPRIL- 2021-0 Yes [id number] TAKE 1 [facility] HYDROCHLORO 6-02 TABLET BY ity of THIAZIDE 00:00: MOUTH [place] 20-25 mg 00 EVERY DAY Medica l per tablet Branch FLUOXETINE 2021-0 Yes [id number] TAKE 1 [facility] vers 20 mg 6-02 TABLET BY ity of tablet 00:00: MOUTH [place] 00 EVERY DAY Medical Branch LISINOPRIL- 2021-0 2022- No [id number] TAKE 1 [facility] HYDROCHLORO 08-29 TABLET BY it y of THIAZIDE 00:00: 00:00 MOUTH [place] 20-25 mg 00 :00 EVERY DAY Medica l per tablet Branch FLUOXETINE 2021- No [id number] TAKE 1 Un [facility] 20 mg 08-29 TABLET BY ity of tablet 00:00: 00:00 MOUTH [place] 00 :00 EVERY DAY Medical Branch sodium,pota 2021-0 Yes [id number] Take as Univers ssium,mag 07-29 directed ity of sulfates 00:00: [place] 17.5-3.13-1 00 Medical .6 gram Branch sodium,pota 2021-0 Yes [id number] Take as [facility] ssium,mag 07-29 directed ity of sulfates 00:00: [place] 17.5-3.13-1 00 Medical .6 gram Branch sodium,pota 2021-0 Yes [id number] Take as Univers ssium,mag 07-29 directed ity of sulfates 00:00: [place] 17.5-3.13-1 00 Medical .6 gram Branch sodium,pota 2021-0 Yes [id number] Take as Univers ssium,mag 07-29 directed ity of sulfates 00:00: [place] 17.5-3.13-1 00 Medical .6 gram Branch sodium,pota 2021-0 Yes [id number] Take as [facility] ssium,mag 07-29 directed ity of sulfates 00:00: [place] 17.5-3.13-1 00 Medical .6 gram Branch sodium,pota 2021-0 Yes [id number] Take as Univers ssium,mag 07-29 directed ity of sulfates 00:00: [place] 17.5-3.13-1 00 Medical .6 gram Branch sodium,pota 2021-0 Yes [id number] Take as [facility] ssium,mag 07-29 directed ity of sulfates 00:00: [place] 17.5-3.13-1 00 Medical .6 gram Branch sodium,pota 2021-0 Yes [id number] Take as [facility] ssium,mag 07-29 directed ity of sulfates 00:00: [place] 17.5-3.13-1 00 Medical .6 gram Branch sodium,pota 2021-0 Yes [id number] Take as [facility] ssium,mag 07-29 directed ity of sulfates 00:00: [place] 17.5-3.13-1 00 Medical .6 gram Branch sodium,pota 2-0 Yes [id number] Take as [facility] ssium,mag 07-29 directed ity of sulfates 00:00: [place] 17.5-3.13-1 00 Medical .6 gram Branch sodium,pota 2-0 Yes [id number] Take as [facility] ssium,mag 07-29 directed ity of sulfates 00:00: [place] 17.5-3.13-1 00 Medical .6 gram Branch sodium,pota 2021-0 Yes [id number] Take as [facility] ssium,mag 07-29 directed ity of sulfates 00:00: [place] 17.5-3.13-1 00 Medical .6 gram Branch sodium,pota 2021-0 Yes [id number] Take as [facility] ssium,mag 07-29 directed ity of sulfates 00:00: [place] 17.5-3.13-1 00 Medical .6 gram Branch sodium,pota 2021-0 Yes [id number] Take as [facility] ssium,mag 07-29 directed ity of sulfates 00:00: [place] 17.5-3.13-1 00 Medical .6 gram Branch sodium,pota 2021-0 Yes [id number] Take as [facility] ssium,mag 07-29 directed ity of sulfates 00:00: [place] 17.5-3.13-1 00 Medical .6 gram Branch sodium,pota 2-0 Yes [id number] Take as [facility] ssium,mag 07-29 directed ity of sulfates 00:00: [place] 17.5-3.13-1 00 Medical .6 gram Branch sodium,pota 2021-0 Yes [id number] Take as [facility] ssium,mag 07-29 directed ity of sulfates 00:00: [place] 17.5-3.13-1 00 Medical .6 gram Branch sodium,pota 2021-0 Yes [id number] Take as [facility] ssium,mag 07-29 directed ity of sulfates 00:00: [place] 17.5-3.13-1 00 Medical .6 gram Branch sodium,pota 2-0 Yes [id number] Take as [facility] ssium,mag 07-29 directed ity of sulfates 00:00: [place] 17.5-3.13-1 00 Medical .6 gram Branch sodium,pota 2-0 Yes [id number] Take as [facility] ssium,mag 07-29 directed ity of sulfates 00:00: [place] 17.5-3.13-1 00 Medical .6 gram Branch sodium,pota 2-0 Yes [id number] Take as [facility] ssium,mag 07-29 directed ity of sulfates 00:00: [place] 17.5-3.13-1 00 Medical .6 gram Branch sodium,pota 2-0 Yes [id number] Take as [facility] ssium,mag 07-29 directed ity of sulfates 00:00: [place] 17.5-3.13-1 00 Medical .6 gram Branch sodium,pota 2-0 Yes [id number] Take as [facility] ssium,mag 07-29 directed ity of sulfates 00:00: [place] 17.5-3.13-1 00 Medical .6 gram Branch sodium,pota 2-0 Yes [id number] Take as [facility] ssium,mag 07-29 directed ity of sulfates 00:00: [place] 17.5-3.13-1 00 Medical .6 gram Branch sodium,pota 2-0 Yes [id number] Take as [facility] ssium,mag 07-29 directed ity of sulfates 00:00: [place] 17.5-3.13-1 00 Medical .6 gram Branch sodium,pota 2-0 Yes [id number] Take as [facility] ssium,mag 07-29 directed ity of sulfates 00:00: [place] 17.5-3.13-1 00 Medical .6 gram [facility] sodium,pota 2-0 Yes [id number] Take as [facility] ssium,mag 07-29 directed ity of sulfates 00:00: [place] 17.5-3.13-1 00 Medical .6 gram Branch sodium,pota 2-0 Yes [id number] Take as [facility] ssium,mag 07-29 directed ity of sulfates 00:00: [place] 17.5-3.13-1 00 Medical .6 gram Branch sodium,pota 2022-0 Yes [id number] Take as [facility] ssium,mag 07-29 directed ity of sulfates 00:00: [place] 17.5-3.13-1 00 Medical .6 gram Branch sodium,pota 2-0 Yes [id number] Take as [facility] ssium,mag 07-29 directed ity of sulfates 00:00: [place] 17.5-3.13-1 00 Medical .6 gram Branch sodium,pota 2-0 Yes [id number] Take as [facility] ssium,mag 07-29 directed ity of sulfates 00:00: [place] 17.5-3.13-1 00 Medical .6 gram Branch sodium,pota 2021-0 Yes [id number] Take as [facility] ssium,mag 07-29 directed ity of sulfates 00:00: [place] 17.5-3.13-1 00 Medical .6 gram Branch sodium,pota 2021-0 Yes [id number] Take as [facility] ssium,mag 07-29 directed ity of sulfates 00:00: [place] 17.5-3.13-1 00 Medical .6 gram Branch sodium,pota 2021-0 Yes [id number] Take as [facility] ssium,mag 07-29 directed ity of sulfates 00:00: [place] 17.5-3.13-1 00 Medical .6 gram Branch sodium,pota 2021-0 Yes [id number] Take as [facility] ssium,mag 07-29 directed ity of sulfates 00:00: [place] 17.5-3.13-1 00 Medical .6 gram Branch sodium,pota 2-0 Yes [id number] Take as [facility] ssium,mag 07-29 directed ity of sulfates 00:00: [place] 17.5-3.13-1 00 Medical .6 gram Branch sodium,pota 2021-0 Yes [id number] Take as [facility] ssium,mag 07-29 directed ity of sulfates 00:00: [place] 17.5-3.13-1 00 Medical .6 gram Branch sodium,pota 2-0 Yes [id number] Take as [facility] ssium,mag 07-29 directed ity of sulfates 00:00: [place] 17.5-3.13-1 00 Medical .6 gram Branch sodium,pota 2022-0 2023- No [id number] Take as [facility] ssium,mag 07-29 directed ity o f sulfates 00:00: 00:00 [place] 17.5-3.13-1 00 :00 Medical .6 gram Branch sodium,pota 2021-0 3- No [id number] Take as [facility] ssium,mag 07-29 directed ity o f sulfates 00:00: 00:00 [place] 17.5-3.13-1 00 :00 Medical .6 gram Branch pravastatin 2021-0 Yes [id number] 20mg Take 1 [facility] 20 mg 2-09 tablet by ity of tablet 00:00: mouth at [place] 00 bedtime. Medical Branch amLODIPine 2021-0 Yes [id number] 5mg Take 1 [facility] n[facility] 5 mg tablet 2-09 tablet by ity of 00:00: mouth [place] 00 daily. Medical Branch metformin 2021-0 Yes [id number] 1000mg Take 2 [facility] ER 500 mg 2-09 tablets by ity of 24 hr 00:00: mouth 2 [place] tablet 00 (two) Medical times Branch daily with meals. insulin 2021-0 Yes [id number] 10U inject [facility] ers aspart 2- 10-30 ity of U-100 00:00: Units [place] (NOVOLOG 00 under the Medica l FLEXPEN skin 3 Branch U-100 (three) INSULIN) times 100 unit/mL daily (3 mL) before injection meals. pravastatin 2021-0 Yes [id number] 20mg Take 1 [facility] 20 mg 2-09 tablet by ity of tablet 00:00: mouth at [place] 00 bedtime. Medical Branch amLODIPine 2021-0 Yes [id number] 5mg Take 1 [facility] nivers 5 mg tablet 2-09 tablet by ity of 00:00: mouth [place] 00 daily. Medical Branch metformin 2021-0 Yes [id number] 1000mg Take 2 [facility] ER 500 mg 2-09 tablets by ity of 24 hr 00:00: mouth 2 [place] tablet 00 (two) Medical times Branch daily with meals. insulin 2021-0 Yes [id number] 10U inject [facility] ers aspart 2-09 10-30 ity of U-100 00:00: Units [place] (NOVOLOG 00 under the Medica l FLEXPEN skin 3 Branch U-100 (three) INSULIN) times 100 unit/mL daily (3 mL) before injection meals. pravastatin 2021-0 Yes [id number] 20mg Take 1 [facility] 20 mg 2-09 tablet by ity of tablet 00:00: mouth at [place] 00 bedtime. Medical Branch amLODIPine 2021-0 Yes [id number] 5mg Take 1 [facility] nivers 5 mg tablet 2-09 tablet by ity of 00:00: mouth [place] 00 daily. Medical Branch metformin 2021-0 Yes [id number] 1000mg Take 2 [facility] ER 500 mg 2-09 tablets by ity of 24 hr 00:00: mouth 2 [place] tablet 00 (two) Medical times Branch daily with meals. insulin 2021-0 Yes [id number] 10U inject [facility] ers aspart 2- 10-30 ity of U-100 00:00: Units [place] (NOVOLOG 00 under the Medica l FLEXPEN skin 3 Branch U-100 (three) INSULIN) times 100 unit/mL daily (3 mL) before injection meals. pravastatin 2021-0 Yes [id number] 20mg Take 1 [facility] 20 mg 2-09 tablet by ity of tablet 00:00: mouth at [place] 00 bedtime. Medical Branch amLODIPine 2021-0 Yes [id number] 5mg Take 1 [facility] nivers 5 mg tablet 2-09 tablet by ity of 00:00: mouth [place] 00 daily. Medical Branch metformin 2021-0 Yes [id number] 1000mg Take 2 [facility] ER 500 mg 2-09 tablets by ity of 24 hr 00:00: mouth 2 [place] tablet 00 (two) Medical times Branch daily with meals. insulin 2021-0 Yes [id number] 10U inject [facility] ers aspart 2- 10-30 ity of U-100 00:00: Units [place] (NOVOLOG 00 under the Medica l FLEXPEN skin 3 Branch U-100 (three) INSULIN) times 100 unit/mL daily (3 mL) before injection meals. pravastatin 2021-0 Yes [id number] 20mg Take 1 [facility] 20 mg 2-09 tablet by ity of tablet 00:00: mouth at [place] 00 bedtime. Medical Branch amLODIPine 2021-0 Yes [id number] 5mg Take 1 [facility] nivers 5 mg tablet 2-09 tablet by ity of 00:00: mouth [place] 00 daily. Medical Branch metformin 2021-0 Yes [id number] 1000mg Take 2 [facility] ER 500 mg 2-09 tablets by ity of 24 hr 00:00: mouth 2 [place] tablet 00 (two) Medical times Branch daily with meals. insulin 2021-0 Yes [id number] 10U inject [facility] ers aspart 2- 10-30 ity of U-100 00:00: Units [place] (NOVOLOG 00 under the Medica l FLEXPEN skin 3 Branch U-100 (three) INSULIN) times 100 unit/mL daily (3 mL) before injection meals. pravastatin 2021-0 Yes [id number] 20mg Take 1 [facility] 20 mg 2-09 tablet by ity of tablet 00:00: mouth at [place] 00 bedtime. Medical Branch amLODIPine 2021-0 Yes [id number] 5mg Take 1 [facility] nivers 5 mg tablet 2-09 tablet by ity of 00:00: mouth [place] 00 daily. Medical Branch metformin 2021-0 Yes [id number] 1000mg Take 2 [facility] ER 500 mg 2-09 tablets by ity of 24 hr 00:00: mouth 2 [place] tablet 00 (two) Medical times Branch daily with meals. insulin 2021-0 Yes [id number] 10U inject [facility] ers aspart 2- 10-30 ity of U-100 00:00: Units [place] (NOVOLOG 00 under the Medica l FLEXPEN skin 3 Branch U-100 (three) INSULIN) times 100 unit/mL daily (3 mL) before injection meals. pravastatin 2021-0 Yes [id number] 20mg Take 1 [facility] 20 mg 2-09 tablet by ity of tablet 00:00: mouth at [place] 00 bedtime. Medical Branch amLODIPine 2021-0 Yes [id number] 5mg Take 1 [facility] nivers 5 mg tablet 2-09 tablet by ity of 00:00: mouth [place] 00 daily. Medical Branch insulin 2021-0 Yes [id number] 10U inject [facility] vers aspart 2- 10-30 ity of U-100 00:00: Units [place] (NOVOLOG 00 under the Medica l FLEXPEN skin 3 Branch U-100 (three) INSULIN) times 100 unit/mL daily (3 mL) before injection meals. pravastatin 2021-0 Yes [id number] 20mg Take 1 [facility] 20 mg 2-09 tablet by ity of tablet 00:00: mouth at [place] 00 bedtime. Medical Branch amLODIPine 2021-0 Yes [id number] 5mg Take 1 [facility] nivers 5 mg tablet 2-09 tablet by ity of 00:00: mouth [place] 00 daily. Medical Branch insulin 2021-0 Yes [id number] 10U inject [facility] vers aspart 2- 10-30 ity of U-100 00:00: Units [place] (NOVOLOG 00 under the Medica l FLEXPEN skin 3 Branch U-100 (three) INSULIN) times 100 unit/mL daily (3 mL) before injection meals. pravastatin 2021-0 Yes [id number] 20mg Take 1 [facility] 20 mg 2-09 tablet by ity of tablet 00:00: mouth at [place] 00 bedtime. Medical Branch amLODIPine 2021-0 Yes [id number] 5mg Take 1 [facility] nivers 5 mg tablet 2-09 tablet by ity of 00:00: mouth [place] 00 daily. Medical Branch insulin 2021-0 Yes [id number] 10U inject [facility] vers aspart 2-09 10-30 ity of U-100 00:00: Units (NOVOLOG 00 under the Medica l FLEXPEN skin 3 Branch U-100 (three) INSULIN) times 100 unit/mL daily (3 mL) before injection meals. pravastatin 2021-0 Yes [id number] 20mg Take 1 [facility] 20 mg 2-09 tablet by ity of tablet 00:00: mouth at [place] 00 bedtime. Medical Branch amLODIPine 2021-0 Yes [id number] 5mg Take 1 [facility] nivers 5 mg tablet 2-09 tablet by ity of 00:00: mouth [place] 00 daily. Medical Branch insulin 2021-0 Yes [id number] 10U inject [facility] vers aspart 2-09 10-30 ity of U-100 00:00: Units [place] (NOVOLOG 00 under the Medica l FLEXPEN skin 3 Branch U-100 (three) INSULIN) times 100 unit/mL daily (3 mL) before injection meals. pravastatin 2021-0 Yes [id number] 20mg Take 1 [facility] 20 mg 2-09 tablet by ity of tablet 00:00: mouth at [place] 00 bedtime. Medical Branch amLODIPine 2021-0 Yes [id number] 5mg Take 1 [facility] nivers 5 mg tablet 2-09 tablet by ity of 00:00: mouth [place] 00 daily. Medical Branch insulin 2021-0 Yes [id number] 10U inject [facility] vers aspart 2-09 10-30 ity of U-100 00:00: Units [place] (NOVOLOG 00 under the Medica l FLEXPEN skin 3 Branch U-100 (three) INSULIN) times 100 unit/mL daily (3 mL) before injection meals. pravastatin 2021-0 Yes [id number] 20mg Take 1 [facility] 20 mg 2-09 tablet by ity of tablet 00:00: mouth at [place] 00 bedtime. Medical Branch amLODIPine 2021-0 Yes [id number] 5mg Take 1 [facility] nivers 5 mg tablet 2-09 tablet by ity of 00:00: mouth [place] 00 daily. Medical Branch insulin 2021-0 Yes [id number] 10U inject [facility] vers aspart 2- 10-30 ity of U-100 00:00: Units [place] (NOVOLOG 00 under the Medica l FLEXPEN skin 3 Branch U-100 (three) INSULIN) times 100 unit/mL daily (3 mL) before injection meals. pravastatin 2021-0 Yes [id number] 20mg Take 1 [facility] 20 mg 2-09 tablet by ity of tablet 00:00: mouth at [place] 00 bedtime. Medical Branch amLODIPine 2021-0 Yes [id number] 5mg Take 1 [facility] nivers 5 mg tablet 2-09 tablet by ity of 00:00: mouth [place] 00 daily. Medical Branch insulin 2021-0 Yes [id number] 10U inject [facility] vers aspart 2-09 10-30 ity of U-100 00:00: Units [place] (NOVOLOG 00 under the Medica l FLEXPEN skin 3 Branch U-100 (three) INSULIN) times 100 unit/mL daily (3 mL) before injection meals. pravastatin 2021-0 Yes [id number] 20mg Take 1 [facility] 20 mg 2-09 tablet by ity of tablet 00:00: mouth at [place] 00 bedtime. Medical Branch amLODIPine 2021-0 Yes [id number] 5mg Take 1 [facility] nivers 5 mg tablet 2-09 tablet by ity of 00:00: mouth [place] 00 daily. Medical Branch insulin 2021-0 Yes [id number] 10U inject [facility] vers aspart 2-09 10-30 ity of U-100 00:00: Units [place] (NOVOLOG 00 under the Medica l FLEXPEN skin 3 Branch U-100 (three) INSULIN) times 100 unit/mL daily (3 mL) before injection meals. pravastatin 2021-0 Yes [id number] 20mg Take 1 [facility] 20 mg 2-09 tablet by ity of tablet 00:00: mouth at [place] 00 bedtime. Medical Branch amLODIPine 2021-0 Yes [id number] 5mg Take 1 [facility] nivers 5 mg tablet 2-09 tablet by ity of 00:00: mouth [place] 00 daily. Medical Branch insulin 2021-0 Yes [id number] 10U inject [facility] vers aspart 2-09 10-30 ity of U-100 00:00: Units [place] (NOVOLOG 00 under the Medica l FLEXPEN skin 3 Branch U-100 (three) INSULIN) times 100 unit/mL daily (3 mL) before injection meals. pravastatin 2021-0 Yes [id number] 20mg Take 1 [facility] 20 mg 2-09 tablet by ity of tablet 00:00: mouth at [place] 00 bedtime. Medical Branch amLODIPine 2021-0 Yes [id number] 5mg Take 1 [facility] nivers 5 mg tablet 2-09 tablet by ity of 00:00: mouth [place] 00 daily. Medical Branch insulin 2021-0 Yes [id number] 10U inject [facility] vers aspart 2- 10-30 ity of U-100 00:00: Units (NOVOLOG 00 under the Medica l FLEXPEN skin 3 Branch U-100 (three) INSULIN) times 100 unit/mL daily (3 mL) before injection meals. pravastatin 2021-0 Yes [id number] 20mg Take 1 [facility] 20 mg 2-09 tablet by ity of tablet 00:00: mouth at [place] 00 bedtime. Medical Branch amLODIPine 2021-0 Yes [id number] 5mg Take 1 [facility] nivers 5 mg tablet 2-09 tablet by ity of 00:00: mouth [place] 00 daily. Medical Branch insulin 2021-0 Yes [id number] 10U inject [facility] vers aspart 2- 10-30 ity of U-100 00:00: Units (NOVOLOG 00 under the Medica l FLEXPEN skin 3 Branch U-100 (three) INSULIN) times 100 unit/mL daily (3 mL) before injection meals. pravastatin 2021-0 Yes [id number] 20mg Take 1 [facility] 20 mg 2-09 tablet by ity of tablet 00:00: mouth at [place] 00 bedtime. Medical Branch amLODIPine 2021-0 Yes [id number] 5mg Take 1 [facility] nivers 5 mg tablet 2-09 tablet by ity of 00:00: mouth [place] 00 daily. Medical Branch insulin 2021-0 Yes [id number] 10U inject [facility] vers aspart 2- 10-30 ity of U-100 00:00: Units [place] (NOVOLOG 00 under the Medica l FLEXPEN skin 3 Branch U-100 (three) INSULIN) times 100 unit/mL daily (3 mL) before injection meals. pravastatin 2021-0 Yes [id number] 20mg Take 1 [facility] 20 mg 2-09 tablet by ity of tablet 00:00: mouth at [place] 00 bedtime. Medical Branch amLODIPine 2021-0 Yes [id number] 5mg Take 1 [facility] nivers 5 mg tablet 2-09 tablet by ity of 00:00: mouth [place] 00 daily. Medical Branch insulin 2021-0 Yes [id number] 10U inject [facility] vers aspart 2-09 10-30 ity of U-100 00:00: Units [place] (NOVOLOG 00 under the Medica l FLEXPEN skin 3 Branch U-100 (three) INSULIN) times 100 unit/mL daily (3 mL) before injection meals. pravastatin 2021-0 Yes [id number] 20mg Take 1 [facility] 20 mg 2-09 tablet by ity of tablet 00:00: mouth at [place] 00 bedtime. Medical Branch amLODIPine 2021-0 Yes [id number] 5mg Take 1 [facility] nivers 5 mg tablet 2-09 tablet by ity of 00:00: mouth [place] 00 daily. Medical Branch insulin 2021-0 Yes [id number] 10U inject [facility] vers aspart 2-09 10-30 ity of U-100 00:00: Units [place] (NOVOLOG 00 under the Medica l FLEXPEN skin 3 Branch U-100 (three) INSULIN) times 100 unit/mL daily (3 mL) before injection meals. pravastatin 2021-0 Yes [id number] 20mg Take 1 [facility] 20 mg 2-09 tablet by ity of tablet 00:00: mouth at [place] 00 bedtime. Medical Branch amLODIPine 2021-0 Yes [id number] 5mg Take 1 [facility] nivers 5 mg tablet 2-09 tablet by ity of 00:00: mouth [place] 00 daily. Medical Branch insulin 2021-0 Yes [id number] 10U inject [facility] vers aspart 2-09 10-30 ity of U-100 00:00: Units [place] (NOVOLOG 00 under the Medica l FLEXPEN skin 3 Branch U-100 (three) INSULIN) times 100 unit/mL daily (3 mL) before injection meals. pravastatin 2021-0 Yes [id number] 20mg Take 1 [facility] 20 mg 2-09 tablet by ity of tablet 00:00: mouth at [place] [address] bedtime. Medical Branch amLODIPine 2021-0 Yes [id number] 5mg Take 1 [facility] nivers 5 mg tablet 2-09 tablet by ity of 00:00: mouth [place] 00 daily. Medical Branch insulin 2021-0 Yes [id number] 10U inject [facility] vers aspart 2- 10-30 ity of U-100 00:00: Units [place] (NOVOLOG 00 under the Medica l FLEXPEN skin 3 Branch U-100 (three) INSULIN) times 100 unit/mL daily (3 mL) before injection meals. pravastatin 2021-0 Yes [id number] 20mg Take 1 [facility] 20 mg 2-09 tablet by ity of tablet 00:00: mouth at [place] 00 bedtime. Medical Branch amLODIPine 2021-0 Yes [id number] 5mg Take 1 [facility] nivers 5 mg tablet 2-09 tablet by ity of 00:00: mouth 00 daily. Medical Branch insulin 2021-0 Yes [id number] 10U inject [facility] vers aspart 2- 10-30 ity of U-100 00:00: Units [place] (NOVOLOG 00 under the Medica l FLEXPEN skin 3 Branch U-100 (three) INSULIN) times 100 unit/mL daily (3 mL) before injection meals. pravastatin 2021-0 Yes [id number] 20mg Take 1 [facility] 20 mg 2-09 tablet by ity of tablet 00:00: mouth at [place] 00 bedtime. Medical Branch amLODIPine 2021-0 Yes [id number] 5mg Take 1 [facility] nivers 5 mg tablet 2-09 tablet by ity of 00:00: mouth [place] 00 daily. Medical Branch insulin 2021-0 Yes [id number] 10U inject [facility] vers aspart 2- 10-30 ity of U-100 00:00: Units (NOVOLOG 00 under the Medica l FLEXPEN skin 3 Branch U-100 (three) INSULIN) times 100 unit/mL daily (3 mL) before injection meals. pravastatin 2021-0 Yes [id number] 20mg Take 1 [facility] 20 mg 2-09 tablet by ity of tablet 00:00: mouth at [place] [address] bedtime. Medical Branch amLODIPine 2021-0 Yes [id number] 5mg Take 1 [facility] nivers 5 mg tablet 2-09 tablet by ity of 00:00: mouth [place] 00 daily. Medical Branch insulin 2021-0 Yes [id number] 10U inject [facility] vers aspart 2- 10-30 ity of U-100 00:00: Units (NOVOLOG 00 under the Medica l FLEXPEN skin 3 Branch U-100 (three) INSULIN) times 100 unit/mL daily (3 mL) before injection meals. pravastatin 2021-0 Yes [id number] 20mg Take 1 [facility] 20 mg 2-09 tablet by ity of tablet 00:00: mouth at [place] 00 bedtime. [facility] amLODIPine 2021-0 Yes [id number] 5mg Take 1 [facility] nivers 5 mg tablet 2-09 tablet by ity of 00:00: mouth [place] 00 daily. Medical Branch insulin 2021-0 Yes [id number] 10U inject [facility] vers aspart 2- 10-30 ity of U-100 00:00: Units (NOVOLOG 00 under the Medica l FLEXPEN skin 3 Branch U-100 (three) INSULIN) times 100 unit/mL daily (3 mL) before injection meals. pravastatin 2021-0 Yes [id number] 20mg Take 1 [facility] 20 mg 2-09 tablet by ity of tablet 00:00: mouth at [place] 00 bedtime. [facility] amLODIPine 2021-0 Yes [id number] 5mg Take 1 [facility] nivers 5 mg tablet 2-09 tablet by ity of 00:00: mouth [place] 00 daily. Medical Branch insulin 2021-0 Yes [id number] 10U inject [facility] vers aspart 2- 10-30 ity of U-100 00:00: Units (NOVOLOG 00 under the Medica l FLEXPEN skin 3 Branch U-100 (three) INSULIN) times 100 unit/mL daily (3 mL) before injection meals. pravastatin 2021-0 Yes [id number] 20mg Take 1 [facility] 20 mg 2-09 tablet by ity of tablet 00:00: mouth at [place] 00 bedtime. [facility] amLODIPine 2021-0 Yes [id number] 5mg Take 1 [facility] nivers 5 mg tablet 2-09 tablet by ity of 00:00: mouth [place] 00 daily. [facility] Branch insulin 2021-0 Yes [id number] 10U inject [facility] vers aspart 2- 10-30 ity of U-100 00:00: Units [place] (NOVOLOG 00 under the Medica l FLEXPEN skin 3 Branch U-100 (three) INSULIN) times 100 unit/mL daily (3 mL) before injection meals. pravastatin 2021-0 Yes [id number] 20mg Take 1 [facility] 20 mg 2-09 tablet by ity of tablet 00:00: mouth at [place] [address] bedtime. Medical Branch amLODIPine 2021-0 Yes [id number] 5mg Take 1 [facility] nivers 5 mg tablet 2-09 tablet by ity of 00:00: mouth [place] 00 daily. [facility] insulin 2021-0 Yes [id number] 10U inject [facility] vers aspart 05-08 10-30 ity of U-100 00:00: Units [place] (NOVOLOG 00 under the Medica l FLEXPEN skin 3 Branch U-100 (three) INSULIN) times 100 unit/mL daily (3 mL) before injection meals. pravastatin 2021-0 Yes [id number] 20mg Take 1 [facility] 20 mg 2-09 tablet by ity of tablet 00:00: mouth at [place] [address] bedtime. Medical Branch amLODIPine 2021-0 Yes [id number] 5mg Take 1 [facility] n[facility] 5 mg tablet 2-09 tablet by ity of 00:00: mouth [place] 00 daily. [facility] Branch pravastatin 2021-0 Yes [id number] 20mg Take 1 [facility] 20 mg 2-09 tablet by ity of tablet 00:00: mouth at [place] [address] bedtime. [facility] Branch amLODIPine 2021-0 Yes [id number] 5mg Take 1 [facility] nivers 5 mg tablet 2-09 tablet by ity of 00:00: mouth [place] 00 daily. [facility] pravastatin 2021-0 Yes [id number] 20mg Take 1 [facility] 20 mg 2-09 tablet by ity of tablet 00:00: mouth at [place] [address] bedtime. [facility] amLODIPine 2021-0 Yes [id number] 5mg Take 1 [facility] n[facility] 5 mg tablet 2-09 tablet by ity of 00:00: mouth [place] 00 daily. [facility] pravastatin 2021-0 Yes [id number] 20mg Take 1 [facility] 20 mg 2-09 tablet by ity of tablet 00:00: mouth at [place] [address] bedtime. [facility] amLODIPine 2021-0 Yes [id number] 5mg Take 1 [facility] n[facility] 5 mg tablet 2-09 tablet by ity of 00:00: mouth [place] 00 daily. [facility] pravastatin 2021-0 Yes [id number] 20mg Take 1 [facility] 20 mg 2-09 tablet by ity of tablet 00:00: mouth at [place] 00 bedtime. [facility] amLODIPine 2-0 Yes [id number] 5mg Take 1 [facility] nivers 5 mg tablet 2-09 tablet by ity of 00:00: mouth [place] 00 daily. [facility] Branch pravastatin 2-0 Yes [id number] 20mg Take 1 [facility] 20 mg 2-09 tablet by ity of tablet 00:00: mouth at [place] 00 bedtime. [facility] amLODIPine 2021-0 Yes [id number] 5mg Take 1 [facility] n[facility] 5 mg tablet 2-09 tablet by ity of 00:00: mouth [place] 00 daily. [facility] pravastatin 2021-0 Yes [id number] 20mg Take 1 [facility] 20 mg 2-09 tablet by ity of tablet 00:00: mouth at [place] bedtime. [facility] amLODIPine 2021-0 Yes [id number] 5mg Take 1 [facility] n[facility] 5 mg tablet 2-09 tablet by ity of 00:00: mouth [place] 00 daily. [facility] pravastatin 2021-0 Yes [id number] 20mg Take 1 [facility] 20 mg 2-09 tablet by ity of tablet 00:00: mouth at [place] [address] bedtime. [facility] amLODIPine 2021-0 Yes [id number] 5mg Take 1 [facility] n[facility] 5 mg tablet 2-09 tablet by ity of 00:00: mouth [place] 00 daily. [facility] pravastatin 2-0 Yes [id number] 20mg Take 1 [facility] 20 mg 2-09 tablet by ity of tablet 00:00: mouth at [place] 00 bedtime. [facility] amLODIPine 2-0 Yes [id number] 5mg Take 1 [facility] n[facility] 5 mg tablet 2-09 tablet by ity of 00:00: mouth [place] 00 daily. [facility] pravastatin 2-0 Yes [id number] 20mg Take 1 [facility] 20 mg 2-09 tablet by ity of tablet 00:00: mouth at [place] 00 bedtime. [facility] amLODIPine 2-0 Yes [id number] 5mg Take 1 [facility] n[facility] 5 mg tablet 2-09 tablet by ity of 00:00: mouth [place] 00 daily. [facility] pravastatin 2-0 Yes [id number] 20mg Take 1 [facility] 20 mg 2-09 tablet by ity of tablet 00:00: mouth at [place] 00 bedtime. [facility] amLODIPine 2022-0 Yes [id number] 5mg Take 1 [facility] n[facility] 5 mg tablet 2-09 tablet by ity of 00:00: mouth [place] 00 daily. [facility] pravastatin 2021-0 Yes [id number] 20mg Take 1 [facility] 20 mg 2-09 tablet by ity of tablet 00:00: mouth at [place] 00 bedtime. [facility] amLODIPine 2021-0 Yes [id number] 5mg Take 1 [facility] n[facility] 5 mg tablet 2-09 tablet by ity of 00:00: mouth [place] 00 daily. [facility] pravastatin 2021-0 Yes [id number] 20mg Take 1 [facility] 20 mg 2-09 tablet by ity of tablet 00:00: mouth at [place] 00 bedtime. [facility] amLODIPine 2021-0 Yes [id number] 5mg Take 1 [facility] n[facility] 5 mg tablet 2-09 tablet by ity of 00:00: mouth [place] 00 daily. [facility] pravastatin 2021-0 Yes [id number] 20mg Take 1 [facility] 20 mg 2-09 tablet by ity of tablet 00:00: mouth at [place] 00 bedtime. [facility] amLODIPine 2021-0 Yes [id number] 5mg Take 1 [facility] 5 mg tablet 2-09 tablet by ity of 00:00: mouth [place] 00 daily. [facility] pravastatin 2021-0 Yes [id number] 20mg Take 1 [facility] 20 mg 2-09 tablet by ity of tablet 00:00: mouth at [place] 00 bedtime. [facility] amLODIPine 2021-0 Yes [id number] 5mg Take 1 [facility] n[facility] 5 mg tablet 2-09 tablet by ity of 00:00: mouth 00 daily. [facility] pravastatin 2-0 Yes [id number] 20mg Take 1 [facility] 20 mg 2-09 tablet by ity of tablet 00:00: mouth at [place] 00 bedtime. Medical Branch amLODIPine 2021-0 Yes [id number] 5mg Take 1 U nivers 5 mg tablet 2-09 tablet by ity of 00:00: mouth [place] 00 daily. Medical Branch pravastatin 2-0 Yes [id number] 20mg Take 1 [facility] 20 mg 2-09 tablet by ity of tablet 00:00: mouth at [place] 00 bedtime. [facility] Branch amLODIPine 2021-0 Yes [id number] 5mg Take 1 U nivers 5 mg tablet 2-09 tablet by ity of 00:00: mouth [place] 00 daily. [facility] Branch pravastatin 2-0 Yes [id number] 20mg Take 1 [facility] 20 mg 2-09 tablet by ity of tablet 00:00: mouth at [place] 00 bedtime. [facility] Branch amLODIPine 2-0 Yes [id number] 5mg Take 1 U nivers 5 mg tablet 2-09 tablet by ity of 00:00: mouth [place] 00 daily. [facility] Branch pravastatin 2-0 Yes [id number] 20mg Take 1 [facility] 20 mg 2-09 tablet by ity of tablet 00:00: mouth at [place] 00 bedtime. [facility] Branch amLODIPine 2-0 Yes [id number] 5mg Take 1 U nivers 5 mg tablet 2-09 tablet by ity of 00:00: mouth [place] 00 daily. [facility] Branch pravastatin 2-0 Yes [id number] 20mg Take 1 [facility] 20 mg 2-09 tablet by ity of tablet 00:00: mouth at [place] bedtime. [facility] Branch amLODIPine 2-0 Yes [id number] 5mg Take 1 U nivers 5 mg tablet 2-09 tablet by ity of 00:00: mouth [place] 00 daily. Medical Branch pravastatin 2-0 Yes [id number] 20mg Take 1 [facility] 20 mg 2-09 tablet by ity of tablet 00:00: mouth at [place] bedtime. [facility] Branch amLODIPine 2-0 Yes [id number] 5mg Take 1 U nivers 5 mg tablet 2-09 tablet by ity of 00:00: mouth 00 daily. Medical Branch pravastatin 2-0 Yes [id number] 20mg Take 1 [facility] 20 mg 2-09 tablet by ity of tablet 00:00: mouth at [place] bedtime. Medical Branch amLODIPine 2-0 Yes [id number] 5mg Take 1 U nivers 5 mg tablet 2-09 tablet by ity of 00:00: mouth 00 daily. Medical Branch pravastatin 2-0 Yes [id number] 20mg Take 1 [facility] 20 mg 2-09 tablet by ity of tablet 00:00: mouth at [place] 00 bedtime. Medical Branch amLODIPine 2-0 Yes [id number] 5mg Take 1 U nivers 5 mg tablet 2-09 tablet by ity of 00:00: mouth [place] 00 daily. Medical Branch pravastatin 2-0 Yes [id number] 20mg Take 1 [facility] 20 mg 2-09 tablet by ity of tablet 00:00: mouth at [place] 00 bedtime. [facility] Branch amLODIPine 2-0 Yes [id number] 5mg Take 1 U nivers 5 mg tablet 2-09 tablet by ity of 00:00: mouth [place] 00 daily. Medical Branch pravastatin 2-0 Yes [id number] 20mg Take 1 [facility] 20 mg 2-09 tablet by ity of tablet 00:00: mouth at [place] 00 bedtime. [facility] Branch amLODIPine 2-0 Yes [id number] 5mg Take 1 U nivers 5 mg tablet 2-09 tablet by ity of 00:00: mouth [place] 00 daily. Medical Branch pravastatin 2-0 Yes [id number] 20mg Take 1 [facility] 20 mg 2-09 tablet by ity of tablet 00:00: mouth at [place] bedtime. Medical Branch amLODIPine 2-0 Yes [id number] 5mg Take 1 U nivers 5 mg tablet 2-09 tablet by ity of 00:00: mouth [place] 00 daily. Medical Branch pravastatin 2-0 Yes [id number] 20mg Take 1 [facility] 20 mg 2-09 tablet by ity of tablet 00:00: mouth at [place] [address] bedtime. Medical Branch amLODIPine 2021-0 Yes [id number] 5mg Take 1 U nivers 5 mg tablet 2-09 tablet by ity of 00:00: mouth [place] 00 daily. Medical Branch pravastatin 2-0 Yes [id number] 20mg Take 1 [facility] 20 mg 2-09 tablet by ity of tablet 00:00: mouth at [place] 00 bedtime. Medical Branch amLODIPine 2-0 Yes [id number] 5mg Take 1 [facility] nivers 5 mg tablet 2-09 tablet by ity of 00:00: mouth [place] 00 daily. Medical Branch pravastatin 2-0 Yes [id number] 20mg Take 1 [facility] 20 mg 2-09 tablet by ity of tablet 00:00: mouth at [place] 00 bedtime. Medical Branch amLODIPine 2-0 Yes [id number] 5mg Take 1 [facility] nivers 5 mg tablet 2-09 tablet by ity of 00:00: mouth [place] 00 daily. Medical Branch pravastatin 2-0 Yes [id number] 20mg Take 1 [facility] 20 mg 2-09 tablet by ity of tablet 00:00: mouth at [place] 00 bedtime. Medical Branch amLODIPine 2022-0 Yes [id number] 5mg Take 1 U nivers 5 mg tablet 2-09 tablet by ity of 00:00: mouth [place] 00 daily. Medical Branch pravastatin Yes [id number] 20mg Take 1 [facility] 20 mg 2-09 tablet by ity of tablet 00:00: mouth at [place] 00 bedtime. Medical Branch amLODIPine Yes [id number] 5mg Take 1 U nivers 5 mg tablet 2-09 tablet by ity of 00:00: mouth [place] 00 daily. Medical Branch insulin 2022- No [id number] 10U inject Un [place] aspart 05-08- 10-30 ity of U-100 00:00: 00:00 Units [place] (NOVOLOG 00 :00 under the Medica l FLEXPEN skin 3 Branch U-100 (three) INSULIN) times 100 unit/mL daily (3 mL) before injection meals. metformin 2021- No [id number] 1000mg Take 2 Univers ER 500 mg 05-08 tablets by ity of 24 hr 00:00: 00:00 mouth 2 [place] tablet 00 :00 (two) Medical times Branch daily with meals. Miscellaneo 2020-03 Yes [id number] Pt [facility] 04-03 requesting ity of Supply Misc 00:00: a rx for [place] 00 Reli On 6 Medical mm x 31 Branch Gauge (15/64" x 0.25 mm). Please provide. For dx E11.9. takes 4 injections of insulin a day. Miscellaneo 2020-03 Yes [id number] Pt Un [place] 04-03 requesting ity of Supply Misc 00:00: a rx for [place] 00 Reli On 6 Medical mm x 31 Branch Gauge (15/64" x 0.25 mm). Please provide. For dx E11.9. takes 4 injections of insulin a day. Miscellaneo 2020-03 Yes [id number] Pt [place] [facility] 04-03 requesting ity of Supply Misc 00:00: a rx for [place] 00 Reli On 6 Medical mm x 31 Branch Gauge (15/64" x 0.25 mm). Please provide. For dx E11.9. takes 4 injections of insulin a day. Miscellaneo 2020-03 Yes [id number] Pt [facility] 04-03 requesting ity of Supply Misc 00:00: a rx for [place] 00 Reli On 6 Medical mm x 31 Branch Gauge (15/64" x 0.25 mm). Please provide. For dx E11.9. takes 4 injections of insulin a day. Miscellaneo 2020-03 Yes [id number] Pt Un [facility] 04-03 requesting ity of Supply Misc 00:00: a rx for [place] 00 Reli On 6 Medical mm x 31 Branch Gauge (15/64" x 0.25 mm). Please provide. For dx E11.9. takes 4 injections of insulin a day. Miscellaneo 2020-03 Yes [id number] Pt Un [facility] 04-03 requesting ity of Supply Misc 00:00: a rx for [place] 00 Reli On 6 Medical mm x 31 Branch Gauge (15/64" x 0.25 mm). Please provide. For dx E11.9. takes 4 injections of insulin a day. Miscellaneo 2020-03 Yes [id number] Pt U [place] [facility] 04-03 requesting ity of Supply Misc 00:00: a rx for [place] 00 Reli On 6 Medical mm x 31 Branch Gauge (15/64" x 0.25 mm). Please provide. For dx E11.9. takes 4 injections of insulin a day. Miscellaneo 2020-03 Yes [id number] Pt U [place] [facility] 04-03 requesting ity of Supply Misc 00:00: a rx for [place] 00 Reli On 6 Medical mm x 31 Branch Gauge (15/64" x 0.25 mm). Please provide. For dx E11.9. takes 4 injections of insulin a day. Miscellaneo 2020-03 Yes [id number] Pt U [place] [facility] 04-03 requesting ity of Supply Misc 00:00: a rx for [place] 00 Reli On 6 Medical mm x 31 Branch Gauge (15/64" x 0.25 mm). Please provide. For dx E11.9. takes 4 injections of insulin a day. Miscellaneo 2020-03 Yes [id number] Pt U [place] [facility] 04-03 requesting ity of Supply Misc 00:00: a rx for [place] 00 Reli On 6 Medical mm x 31 Branch Gauge (15/64" x 0.25 mm). Please provide. For dx E11.9. takes 4 injections of insulin a day. Miscellaneo 2020-03 Yes [id number] Pt U [facility] 04-03 requesting ity of Supply Misc 00:00: a rx for [place] 00 Reli On 6 Medical mm x 31 Branch Gauge (15/64" x 0.25 mm). Please provide. For dx E11.9. takes 4 injections of insulin a day. Miscellaneo 2020-03 Yes [id number] Pt U [place] [facility] 04-03 requesting ity of Supply Misc 00:00: a rx for [place] 00 Reli On 6 Medical mm x 31 Branch Gauge (15/64" x 0.25 mm). Please provide. For dx E11.9. takes 4 injections of insulin a day. Miscellaneo 2020-03 Yes [id number] Pt U [place] [facility] 04-03 requesting ity of Supply Misc 00:00: a rx for [place] 00 Reli On 6 Medical mm x 31 Branch Gauge (15/64" x 0.25 mm). Please provide. For dx E11.9. takes 4 injections of insulin a day. Miscellaneo 2020-03 Yes [id number] Pt U [place] [facility] 04-03 requesting ity of Supply Misc 00:00: a rx for [place] 00 Reli On 6 Medical mm x 31 Branch Gauge (15/64" x 0.25 mm). Please provide. For dx E11.9. takes 4 injections of insulin a day. Miscellaneo 2020-03 Yes [id number] Pt U [place] [facility] 04-03 requesting ity of Supply Misc 00:00: a rx for [place] 00 Reli On 6 Medical mm x 31 Branch Gauge (15/64" x 0.25 mm). Please provide. For dx E11.9. takes 4 injections of insulin a day. Miscellaneo 2020-03 Yes [id number] Pt U [place] [facility] 04-03 requesting ity of Supply Misc 00:00: a rx for [place] 00 Reli On 6 Medical mm x 31 Branch Gauge (15/64" x 0.25 mm). Please provide. For dx E11.9. takes 4 injections of insulin a day. Miscellaneo 2020-03 Yes [id number] Pt U [facility] 04-03 requesting ity of Supply Misc 00:00: a rx for [place] 00 Reli On 6 Medical mm x 31 Branch Gauge (15/64" x 0.25 mm). Please provide. For dx E11.9. takes 4 injections of insulin a day. Miscellaneo 2020-03 Yes [id number] Pt U [place] [facility] 04-03 requesting ity of Supply Misc 00:00: a rx for [place] 00 Reli On 6 Medical mm x 31 Branch Gauge (15/64" x 0.25 mm). Please provide. For dx E11.9. takes 4 injections of insulin a day. Miscellaneo 2020-03 Yes [id number] Pt U [place] [facility] 04-03 requesting ity of Supply Misc 00:00: a rx for [place] 00 Reli On 6 Medical mm x 31 Branch Gauge (15/64" x 0.25 mm). Please provide. For dx E11.9. takes 4 injections of insulin a day. Miscellaneo 2020-03 Yes [id number] Pt U [place] [facility] 04-03 requesting ity of Supply Misc 00:00: a rx for [place] 00 Reli On 6 Medical mm x 31 Branch Gauge (15/64" x 0.25 mm). Please provide. For dx E11.9. takes 4 injections of insulin a day. Miscellaneo 2020-03 Yes [id number] Pt U [place] [facility] 04-03 requesting ity of Supply Misc 00:00: a rx for [place] 00 Reli On 6 Medical mm x 31 Branch Gauge (15/64" x 0.25 mm). Please provide. For dx E11.9. takes 4 injections of insulin a day. Miscellaneo 2020-03 Yes [id number] Pt U [place] [facility] 04-03 requesting ity of Supply Misc 00:00: a rx for [place] 00 Reli On 6 Medical mm x 31 Branch Gauge (15/64" x 0.25 mm). Please provide. For dx E11.9. takes 4 injections of insulin a day. Miscellaneo 2020-03 Yes [id number] Pt U [place] [facility] 04-03 requesting ity of Supply Misc 00:00: a rx for [place] 00 Reli On 6 Medical mm x 31 Branch Gauge (15/64" x 0.25 mm). Please provide. For dx E11.9. takes 4 injections of insulin a day. Miscellaneo 2020-03 Yes [id number] Pt U [place] [facility] 04-03 requesting ity of Supply Misc 00:00: a rx for [place] 00 Reli On 6 Medical mm x 31 Branch Gauge (15/64" x 0.25 mm). Please provide. For dx E11.9. takes 4 injections of insulin a day. Miscellaneo 2020-03 Yes [id number] Pt U [place] [facility] 04-03 requesting ity of Supply Misc 00:00: a rx for [place] 00 Reli On 6 Medical mm x 31 Branch Gauge (15/64" x 0.25 mm). Please provide. For dx E11.9. takes 4 injections of insulin a day. Miscellaneo 2020-03 Yes [id number] Pt U [place] [facility] 04-03 requesting ity of Supply Misc 00:00: a rx for [place] 00 Reli On 6 Medical mm x 31 Branch Gauge (15/64" x 0.25 mm). Please provide. For dx E11.9. takes 4 injections of insulin a day. Miscellaneo 2020-03 Yes [id number] Pt U [place] [facility] 04-03 requesting ity of Supply Misc 00:00: a rx for [place] 00 Reli On 6 Medical mm x 31 Branch Gauge (15/64" x 0.25 mm). Please provide. For dx E11.9. takes 4 injections of insulin a day. Miscellaneo 2020-03 Yes [id number] Pt U [place] [facility] 04-03 requesting ity of Supply Misc 00:00: a rx for [place] 00 Reli On 6 Medical mm x 31 Branch Gauge (15/64" x 0.25 mm). Please provide. For dx E11.9. takes 4 injections of insulin a day. Miscellaneo 2020-03 Yes [id number] Pt U [place] [facility] 04-03 requesting ity of Supply Misc 00:00: a rx for [place] 00 Reli On 6 Medical mm x 31 Branch Gauge (15/64" x 0.25 mm). Please provide. For dx E11.9. takes 4 injections of insulin a day. Miscellaneo 2020-03 Yes [id number] Pt U [place] [facility] 04-03 requesting ity of Supply Misc 00:00: a rx for [place] 00 Reli On 6 Medical mm x 31 Branch Gauge (15/64" x 0.25 mm). Please provide. For dx E11.9. takes 4 injections of insulin a day. Miscellaneo 2020-03 Yes [id number] Pt U [place] [facility] 04-03 requesting ity of Supply Misc 00:00: a rx for [place] 00 Reli On 6 Medical mm x 31 Branch Gauge (15/64" x 0.25 mm). Please provide. For dx E11.9. takes 4 injections of insulin a day. Miscellaneo 2020-03 Yes [id number] Pt U [place] [facility] 04-03 requesting ity of Supply Misc 00:00: a rx for [place] 00 Reli On 6 Medical mm x 31 Branch Gauge (15/64" x 0.25 mm). Please provide. For dx E11.9. takes 4 injections of insulin a day. Miscellaneo 2020-03 Yes [id number] Pt U [place] [facility] 04-03 requesting ity of Supply Misc 00:00: a rx for [place] 00 Reli On 6 Medical mm x 31 Branch Gauge (15/64" x 0.25 mm). Please provide. For dx E11.9. takes 4 injections of insulin a day. Miscellaneo 2020-03 Yes [id number] Pt U [place] [facility] 04-03 requesting ity of Supply Misc 00:00: a rx for [place] 00 Reli On 6 Medical mm x 31 Branch Gauge (15/64" x 0.25 mm). Please provide. For dx E11.9. takes 4 injections of insulin a day. Miscellaneo 2020-03 Yes [id number] Pt U [place] [facility] 04-03 requesting ity of Supply Misc 00:00: a rx for [place] 00 Reli On 6 Medical mm x 31 Branch Gauge (15/64" x 0.25 mm). Please provide. For dx E11.9. takes 4 injections of insulin a day. Miscellaneo 2020-03 Yes [id number] Pt [facility] 04-03 requesting ity of Supply Misc 00:00: a rx for [place] 00 Reli On 6 Medical mm x 31 Branch Gauge (15/64" x 0.25 mm). Please provide. For dx E11.9. takes 4 injections of insulin a day. Miscellaneo 2020-03 Yes [id number] Pt U [place] [facility] 04-03 requesting ity of Supply Misc 00:00: a rx for [place] 00 Reli On 6 Medical mm x 31 Branch Gauge (15/64" x 0.25 mm). Please provide. For dx E11.9. takes 4 injections of insulin a day. Miscellaneo 2020-03 Yes [id number] Pt U [place] [facility] 04-03 requesting ity of Supply Misc 00:00: a rx for [place] 00 Reli On 6 Medical mm x 31 Branch Gauge (15/64" x 0.25 mm). Please provide. For dx E11.9. takes 4 injections of insulin a day. Miscellaneo 2020-03 Yes [id number] Pt U [place] [facility] 04-03 requesting ity of Supply Misc 00:00: a rx for [place] 00 Reli On 6 Medical mm x 31 Branch Gauge (15/64" x 0.25 mm). Please provide. For dx E11.9. takes 4 injections of insulin a day. Miscellaneo 2020-03 Yes [id number] Pt U [facility] 04-03 requesting ity of Supply Misc 00:00: a rx for [place] 00 Reli On 6 Medical mm x 31 Branch Gauge (15/64" x 0.25 mm). Please provide. For dx E11.9. takes 4 injections of insulin a day. Miscellaneo 2020-03 Yes [id number] Pt U [place] [facility] 04-03 requesting ity of Supply Misc 00:00: a rx for [place] 00 Reli On 6 Medical mm x 31 Branch Gauge (15/64" x 0.25 mm). Please provide. For dx E11.9. takes 4 injections of insulin a day. Miscellaneo 2020-03 Yes [id number] Pt U [place] [facility] 04-03 requesting ity of Supply Misc 00:00: a rx for [place] 00 Reli On 6 Medical mm x 31 Branch Gauge (15/64" x 0.25 mm). Please provide. For dx E11.9. takes 4 injections of insulin a day. Miscellaneo 2020-03 Yes [id number] Pt U [place] [facility] 04-03 requesting ity of Supply Misc 00:00: a rx for [place] 00 Reli On 6 Medical mm x 31 Branch Gauge (15/64" x 0.25 mm). Please provide. For dx E11.9. takes 4 injections of insulin a day. Miscellaneo 2020-03 Yes [id number] Pt U [place] [facility] 04-03 requesting ity of Supply Misc 00:00: a rx for [place] 00 Reli On 6 Medical mm x 31 Branch Gauge (15/64" x 0.25 mm). Please provide. For dx E11.9. takes 4 injections of insulin a day. Miscellaneo 2020-03 Yes [id number] Pt U [place] [facility] 04-03 requesting ity of Supply Misc 00:00: a rx for [place] 00 Reli On 6 Medical mm x 31 Branch Gauge (15/64" x 0.25 mm). Please provide. For dx E11.9. takes 4 injections of insulin a day. Miscellaneo 2020-03 Yes [id number] Pt U [place] [facility] 04-03 requesting ity of Supply Misc 00:00: a rx for [place] 00 Reli On 6 Medical mm x 31 Branch Gauge (15/64" x 0.25 mm). Please provide. For dx E11.9. takes 4 injections of insulin a day. Miscellaneo 2020-03 Yes [id number] Pt U [place] [facility] 04-03 requesting ity of Supply Misc 00:00: a rx for [place] 00 Reli On 6 Medical mm x 31 Branch Gauge (15/64" x 0.25 mm). Please provide. For dx E11.9. takes 4 injections of insulin a day. Miscellaneo 2020-03 Yes [id number] Pt U [place] [facility] 04-03 requesting ity of Supply Misc 00:00: a rx for [place] 00 Reli On 6 Medical mm x 31 Branch Gauge (15/64" x 0.25 mm). Please provide. For dx E11.9. takes 4 injections of insulin a day. Miscellaneo 2020-03 Yes [id number] Pt U [place] [facility] 04-03 requesting ity of Supply Misc 00:00: a rx for [place] 00 Reli On 6 Medical mm x 31 Branch Gauge (15/64" x 0.25 mm). Please provide. For dx E11.9. takes 4 injections of insulin a day. Miscellaneo 2020-03 Yes [id number] Pt U [place] [facility] 04-03 requesting ity of Supply Misc 00:00: a rx for [place] 00 Reli On 6 Medical mm x 31 Branch Gauge (15/64" x 0.25 mm). Please provide. For dx E11.9. takes 4 injections of insulin a day. Miscellaneo 2020-03 Yes [id number] Pt U [place] [facility] 04-03 requesting ity of Supply Misc 00:00: a rx for [place] 00 Reli On 6 Medical mm x 31 Branch Gauge (15/64" x 0.25 mm). Please provide. For dx E11.9. takes 4 injections of insulin a day. Miscellaneo 2020-03 Yes [id number] Pt U [place] [facility] 04-03 requesting ity of Supply Misc 00:00: a rx for [place] 00 Reli On 6 Medical mm x 31 Branch Gauge (15/64" x 0.25 mm). Please provide. For dx E11.9. takes 4 injections of insulin a day. Miscellaneo 2020-03 Yes [id number] Pt U [place] [facility] 04-03 requesting ity of Supply Misc 00:00: a rx for [place] 00 Reli On 6 Medical mm x 31 Branch Gauge (15/64" x 0.25 mm). Please provide. For dx E11.9. takes 4 injections of insulin a day. Miscellaneo 2020-03 Yes [id number] Pt U [place] [facility] 04-03 requesting ity of Supply Misc 00:00: a rx for [place] 00 Reli On 6 Medical mm x 31 Branch Gauge (15/64" x 0.25 mm). Please provide. For dx E11.9. takes 4 injections of insulin a day. Miscellaneo 2020-03 Yes [id number] Pt U [facility] 04-03 requesting ity of Supply Misc 00:00: a rx for [place] 00 Reli On 6 Medical mm x 31 Branch Gauge (15/64" x 0.25 mm). Please provide. For dx E11.9. takes 4 injections of insulin a day. Miscellaneo 2020-03 Yes [id number] Pt U [place] [facility] 04-03 requesting ity of Supply Misc 00:00: a rx for [place] 00 Reli On 6 Medical mm x 31 Branch Gauge (15/64" x 0.25 mm). Please provide. For dx E11.9. takes 4 injections of insulin a day. Miscellaneo 2020-03 Yes [id number] Pt U [place] [facility] 04-03 requesting ity of Supply Misc 00:00: a rx for [place] 00 Reli On 6 Medical mm x 31 Branch Gauge (15/64" x 0.25 mm). Please provide. For dx E11.9. takes 4 injections of insulin a day. Miscellaneo 2020-03 Yes [id number] Pt U [place] [facility] 04-03 requesting ity of Supply Misc 00:00: a rx for [place] 00 Reli On 6 Medical mm x 31 Branch Gauge (15/64" x 0.25 mm). Please provide. For dx E11.9. takes 4 injections of insulin a day. Miscellaneo 2020-03 Yes [id number] Pt U [place] [facility] 04-03 requesting ity of Supply Misc 00:00: a rx for [place] 00 Reli On 6 Medical mm x 31 Branch Gauge (15/64" x 0.25 mm). Please provide. For dx E11.9. takes 4 injections of insulin a day. Miscellaneo 2020-03 Yes [id number] Pt U [place] [facility] 04-03 requesting ity of Supply Misc 00:00: [...] ity of LANCETS) 30 00:00: TID DX: Acndido as gauge Misc 00 E11.8 Medical Branch [...] Immunizations Ordered Filled Immunization Date Status Comments [facility] e Immunization Name Name TD Pres-Free 2022-09-12 Completed [facility] 00:00:00 [facility] [place] [facility] TD Pres-Free 2022-09-12 Completed University o f 00:00:00 [facility] [place] [facility] TD Pres-Free 2022-09-12 Completed University o f 00:00:00 [facility] [place] [facility] TD Pres-Free 2022-09-12 Completed University o f 00:00:00 [facility] [place] [facility] TD Pres-Free 2022-09-12 Completed University o f 00:00:00 [facility] [place] [facility] TD Pres-Free 2022-09-12 Completed University o f 00:00:00 [facility] [place] [facility] TD Pres-Free 2022-09-12 Completed University o f 00:00:00 [facility] [place] [facility] TD Pres-Free 2022-09-12 Completed University o f 00:00:00 [facility] [place] [facility] TD Pres-Free 2022-09-12 Completed University o f 00:00:00 [facility] [place] [facility] TD Pres-Free 2022-09-12 Completed University o f 00:00:00 [facility] [place] [facility] TD Pres-Free 2022-09-12 Completed University o f 00:00:00 [facility] [place] [facility] TD Pres-Free 2022-09-12 Completed University o f 00:00:00 [facility] [place] [facility] TD Pres-Free 2022-09-12 Completed University o f 00:00:00 [facility] [place] [facility] TD Pres-Free 2022-09-12 Completed University o f 00:00:00 [facility] [place] [facility] TD Pres-Free 2022-09-12 Completed University o f 00:00:00 [facility] [place] [facility] TD Pres-Free 2022-09-12 Completed University o f 00:00:00 [facility] [place] [facility] TD Pres-Free 2022-09-12 Completed University o f 00:00:00 [facility] [place] [facility] TD Pres-Free 2022-09-12 Completed University o f 00:00:00 [facility] [place] [facility] TD Pres-Free 2022-09-12 Completed University o f 00:00:00 [facility] [place] [facility] TD Pres-Free 2022-09-12 Completed University o f 00:00:00 [facility] [place] [facility] TD Pres-Free 2022-09-12 Completed University o f 00:00:00 [facility] [place] [facility] TD Pres-Free 2022-09-12 Completed University o f 00:00:00 [facility] [place] [facility] TD Pres-Free 2022-09-12 Completed University o f 00:00:00 [facility] [place] [facility] Influenza Virus 2021-12-23 Completed Universit y [...] 2021-08-07 Completed University o f Polysaccharide, 00:00:00 [place] [facility] ical PPSV23 (PNEUMOVAX) Branch Pneumococcal 2021-08-07 [...] Unive rsity of PFIZER VACCINE 00:00:00 [facility] Branch SARS-COV-2 COVID-19 2021-01-16 Completed Unive rsity of PFIZER VACCINE 00:00:00 [facility] Branch SARS-COV-2 COVID-19 2021-01-16 Completed Unive rsity of PFIZER VACCINE 00:00:00 [facility] Branch SARS-COV-2 COVID-19 2021-01-16 Completed Unive rsity of PFIZER VACCINE 00:00:00 [facility] Branch SARS-COV-2 COVID-19 2021-01-16 Completed Unive rsity of PFIZER VACCINE 00:00:00 [facility] Branch SARS-COV-2 COVID-19 2021-01-16 Completed Unive rsity of PFIZER VACCINE 00:00:00 [facility] Branch SARS-COV-2 COVID-19 2021-01-16 Completed [facility] PFIZER VACCINE 00:00:00 [facility] SARS-COV-2 COVID-19 2021-01-16 Completed [facility] PFIZER VACCINE 00:00:00 [facility] SARS-COV-2 COVID-19 2021-01-16 Completed [facility] PFIZER VACCINE 00:00:00 [facility] SARS-COV-2 COVID-19 2021-01-16 Completed [facility] PFIZER VACCINE 00:00:00 [facility] SARS-COV-2 COVID-19 2021-01-16 Completed [facility] PFIZER VACCINE 00:00:00 [facility] SARS-COV-2 COVID-19 2021-01-16 Completed [facility] PFIZER VACCINE 00:00:00 [facility] SARS-COV-2 COVID-19 2021-01-16 Completed [facility] PFIZER VACCINE 00:00:00 [facility] SARS-COV-2 COVID-19 2021-01-16 Completed [facility] PFIZER VACCINE 00:00:00 [facility] SARS-COV-2 COVID-19 2021-01-16 Completed [facility] PFIZER VACCINE 00:00:00 [facility] SARS-COV-2 COVID-19 2021-01-16 Completed [facility] PFIZER VACCINE 00:00:00 [facility] SARS-COV-2 COVID-19 2021-01-16 Completed [facility] PFIZER VACCINE 00:00:00 [facility] SARS-COV-2 COVID-19 2021-01-16 Completed [facility] PFIZER VACCINE 00:00:00 [facility] SARS-COV-2 COVID-19 2021-01-16 Completed [facility] PFIZER VACCINE 00:00:00 [facility] SARS-COV-2 COVID-19 2021-01-16 Completed [facility] PFIZER VACCINE 00:00:00 [facility] SARS-COV-2 COVID-19 2021-01-16 Completed [facility] PFIZER VACCINE 00:00:00 [facility] SARS-COV-2 COVID-19 2021-01-16 Completed [facility] PFIZER VACCINE 00:00:00 [facility] SARS-COV-2 COVID-19 2021-01-16 Completed [facility] PFIZER VACCINE 00:00:00 [facility] SARS-COV-2 COVID-19 2021-01-16 Completed [facility] PFIZER VACCINE 00:00:00 [facility] SARS-COV-2 COVID-19 2021-01-16 Completed [facility] PFIZER VACCINE 00:00:00 [facility] SARS-COV-2 COVID-19 2021-01-16 Completed [facility] PFIZER VACCINE 00:00:00 [facility] SARS-COV-2 COVID-19 2021-01-16 Completed [facility] PFIZER VACCINE 00:00:00 [facility] SARS-COV-2 COVID-19 2021-01-16 Completed [facility] PFIZER VACCINE 00:00:00 [facility] SARS-COV-2 COVID-19 2021-01-16 Completed [facility] PFIZER VACCINE 00:00:00 [facility] SARS-COV-2 COVID-19 2021-01-16 Completed [facility] PFIZER VACCINE 00:00:00 [facility] SARS-COV-2 COVID-19 2021-01-16 Completed [facility] PFIZER VACCINE 00:00:00 [facility] SARS-COV-2 COVID-19 2021-01-16 Completed [facility] PFIZER VACCINE 00:00:00 [facility] SARS-COV-2 COVID-19 2021-01-16 Completed [facility] PFIZER VACCINE 00:00:00 [facility] SARS-COV-2 COVID-19 2021-01-16 Completed [facility] PFIZER VACCINE 00:00:00 [facility] SARS-COV-2 COVID-19 2021-01-16 Completed [facility] PFIZER VACCINE 00:00:00 [facility] SARS-COV-2 COVID-19 2021-01-16 Completed [facility] PFIZER VACCINE 00:00:00 [facility] SARS-COV-2 COVID-19 2021-01-16 Completed [facility] PFIZER VACCINE 00:00:00 [facility] SARS-COV-2 COVID-19 2021-01-16 Completed [facility] PFIZER VACCINE 00:00:00 [facility] SARS-COV-2 COVID-19 2021-01-16 Completed [facility] PFIZER VACCINE 00:00:00 [facility] SARS-COV-2 COVID-19 2021-01-16 Completed [facility] PFIZER VACCINE 00:00:00 [facility] SARS-COV-2 COVID-19 2021-01-16 Completed [facility] PFIZER VACCINE 00:00:00 [facility] SARS-COV-2 COVID-19 2021-01-16 Completed [facility] PFIZER VACCINE 00:00:00 [facility] SARS-COV-2 COVID-19 2021-01-16 Completed [facility] PFIZER VACCINE 00:00:00 [facility] SARS-COV-2 COVID-19 2021-01-16 Completed [facility] PFIZER VACCINE 00:00:00 [facility] SARS-COV-2 COVID-19 2021-01-16 Completed [facility] PFIZER VACCINE 00:00:00 [facility] SARS-COV-2 COVID-19 2021-01-16 Completed [facility] PFIZER VACCINE 00:00:00 [facility] SARS-COV-2 COVID-19 2021-01-16 Completed [facility] PFIZER VACCINE 00:00:00 [facility] SARS-COV-2 COVID-19 2021-01-16 Completed [facility] PFIZER VACCINE 00:00:00 [facility] SARS-COV-2 COVID-19 2021-01-16 Completed [facility] PFIZER VACCINE 00:00:00 [facility] SARS-COV-2 COVID-19 2021-01-16 Completed [facility] PFIZER VACCINE 00:00:00 [facility] SARS-COV-2 COVID-19 2021-01-16 Completed [facility] PFIZER VACCINE 00:00:00 [facility] SARS-COV-2 COVID-19 2021-01-16 Completed [facility] PFIZER VACCINE 00:00:00 [facility] SARS-COV-2 COVID-19 2021-01-16 Completed [facility] PFIZER VACCINE 00:00:00 [facility] SARS-COV-2 COVID-19 2021-01-16 Completed [facility] PFIZER VACCINE 00:00:00 [facility] SARS-COV-2 COVID-19 2021-01-16 Completed [facility] PFIZER VACCINE 00:00:00 [facility] SARS-COV-2 COVID-19 2021-01-16 Completed [facility] PFIZER VACCINE 00:00:00 [facility] SARS-COV-2 COVID-19 2021-01-16 Completed [facility] PFIZER VACCINE 00:00:00 [facility] SARS-COV-2 COVID-19 2021-01-16 Completed [facility] PFIZER VACCINE 00:00:00 [facility] SARS-COV-2 COVID-19 2021-01-16 Completed [facility] PFIZER VACCINE 00:00:00 [facility] SARS-COV-2 COVID-19 2021-01-16 Completed [facility] PFIZER VACCINE 00:00:00 [facility] Influenza High Dose 2020-12-01 Completed [facility] 00:00:00 [facility] Influenza High Dose 2020-12-01 Completed [facility] 00:00:00 [facility] Influenza High Dose 2020-12-01 Completed [facility] 00:00:00 [facility] Influenza High Dose 2020-12-01 Completed [facility] 00:00:00 [facility] Influenza High Dose 2020-12-01 [...] Dose 2020-12-01 Completed [facility] 00:00:00 [facility] Influenza High Dose 2020-12-01 Completed [facility] 00:00:00 [facility] Influenza High Dose 2020-12-01 Completed [facility] 00:00:00 [facility] SARS-COV-2 COVID-19 2020-06-12 Completed [facility] PFIZER VACCINE 00:00:00 [facility] SARS-COV-2 COVID-19 2020-06-12 Completed [facility] PFIZER VACCINE 00:00:00 [facility] SARS-COV-2 COVID-19 2020-06-12 Completed [facility] PFIZER VACCINE 00:00:00 [facility] SARS-COV-2 COVID-19 2020-06-12 Completed [facility] PFIZER VACCINE 00:00:00 [facility] SARS-COV-2 COVID-19 2020-06-12 Completed [facility] PFIZER VACCINE 00:00:00 [facility] SARS-COV-2 COVID-19 2020-06-12 Completed [facility] PFIZER VACCINE 00:00:00 [facility] SARS-COV-2 COVID-19 2020-06-12 Completed [facility] PFIZER VACCINE 00:00:00 [facility] SARS-COV-2 COVID-19 2020-06-12 Completed [facility] PFIZER VACCINE 00:00:00 [facility] SARS-COV-2 COVID-19 2020-06-12 Completed [facility] PFIZER VACCINE 00:00:00 [facility] SARS-COV-2 COVID-19 2020-06-12 Completed [facility] PFIZER VACCINE 00:00:00 [facility] SARS-COV-2 COVID-19 2020-06-12 Completed [facility] PFIZER VACCINE 00:00:00 [facility] SARS-COV-2 COVID-19 2020-06-12 Completed [facility] PFIZER VACCINE 00:00:00 [facility] SARS-COV-2 COVID-19 2020-06-12 Completed [facility] PFIZER VACCINE 00:00:00 [facility] SARS-COV-2 COVID-19 2020-06-12 Completed [facility] PFIZER VACCINE 00:00:00 [facility] SARS-COV-2 COVID-19 2020-06-12 Completed [facility] PFIZER VACCINE 00:00:00 [facility] SARS-COV-2 COVID-19 2020-06-12 Completed [facility] PFIZER VACCINE 00:00:00 [facility] SARS-COV-2 COVID-19 2020-06-12 Completed [facility] PFIZER VACCINE 00:00:00 [facility] SARS-COV-2 COVID-19 2020-06-12 Completed [facility] PFIZER VACCINE 00:00:00 [facility] SARS-COV-2 COVID-19 2020-06-12 Completed [facility] PFIZER VACCINE 00:00:00 [facility] SARS-COV-2 COVID-19 2020-06-12 Completed [facility] PFIZER VACCINE 00:00:00 [facility] SARS-COV-2 COVID-19 2020-06-12 Completed [facility] PFIZER VACCINE 00:00:00 [facility] SARS-COV-2 COVID-19 2020-06-12 Completed [facility] PFIZER VACCINE 00:00:00 [facility] SARS-COV-2 COVID-19 2020-06-12 Completed [facility] PFIZER VACCINE 00:00:00 [facility] SARS-COV-2 COVID-19 2020-06-12 Completed [facility] PFIZER VACCINE 00:00:00 [facility] SARS-COV-2 COVID-19 2020-06-12 Completed [facility] PFIZER VACCINE 00:00:00 [facility] SARS-COV-2 COVID-19 2020-06-12 Completed [facility] PFIZER VACCINE 00:00:00 [facility] SARS-COV-2 COVID-19 2020-06-12 Completed [facility] PFIZER VACCINE 00:00:00 [facility] SARS-COV-2 COVID-19 2020-06-12 Completed [facility] PFIZER VACCINE 00:00:00 [facility] SARS-COV-2 COVID-19 2020-06-12 Completed [facility] PFIZER VACCINE 00:00:00 [facility] SARS-COV-2 COVID-19 2020-06-12 Completed [facility] PFIZER VACCINE 00:00:00 [facility] SARS-COV-2 COVID-19 2020-06-12 Completed [facility] PFIZER VACCINE 00:00:00 [facility] SARS-COV-2 COVID-19 2020-06-12 Completed [facility] PFIZER VACCINE 00:00:00 [facility] SARS-COV-2 COVID-19 2020-06-12 Completed [facility] PFIZER VACCINE 00:00:00 [facility] SARS-COV-2 COVID-19 2020-06-12 Completed [facility] PFIZER VACCINE 00:00:00 [facility] SARS-COV-2 COVID-19 2020-06-12 Completed [facility] PFIZER VACCINE 00:00:00 [facility] SARS-COV-2 COVID-19 2020-06-12 Completed [facility] PFIZER VACCINE 00:00:00 [facility] SARS-COV-2 COVID-19 2020-06-12 Completed [facility] PFIZER VACCINE 00:00:00 [facility] SARS-COV-2 COVID-19 2020-06-12 Completed [facility] PFIZER VACCINE 00:00:00 [facility] SARS-COV-2 COVID-19 2020-06-12 Completed [facility] PFIZER VACCINE 00:00:00 [facility] SARS-COV-2 COVID-19 2020-06-12 Completed [facility] PFIZER VACCINE 00:00:00 [facility] SARS-COV-2 COVID-19 2020-06-12 Completed [facility] PFIZER VACCINE 00:00:00 [facility] SARS-COV-2 COVID-19 2020-06-12 Completed [facility] PFIZER VACCINE 00:00:00 [facility] SARS-COV-2 COVID-19 2020-06-12 Completed [facility] PFIZER VACCINE 00:00:00 [facility] SARS-COV-2 COVID-19 2020-06-12 Completed [facility] PFIZER VACCINE 00:00:00 [facility] SARS-COV-2 COVID-19 2020-06-12 Completed [facility] PFIZER VACCINE 00:00:00 [facility] SARS-COV-2 COVID-19 2020-06-12 Completed [facility] PFIZER VACCINE 00:00:00 [facility] SARS-COV-2 COVID-19 2020-06-12 Completed [facility] PFIZER VACCINE 00:00:00 [facility] SARS-COV-2 COVID-19 2020-06-12 Completed [facility] PFIZER VACCINE 00:00:00 [facility] SARS-COV-2 COVID-19 2020-06-12 Completed [facility] PFIZER VACCINE 00:00:00 [facility] SARS-COV-2 COVID-19 2020-06-12 Completed [facility] PFIZER VACCINE 00:00:00 [facility] SARS-COV-2 COVID-19 2020-06-12 Completed [facility] PFIZER VACCINE 00:00:00 [facility] SARS-COV-2 COVID-19 2020-06-12 Completed [facility] PFIZER VACCINE 00:00:00 [facility] SARS-COV-2 COVID-19 2020-06-12 Completed [facility] PFIZER VACCINE 00:00:00 [facility] SARS-COV-2 COVID-19 2020-06-12 Completed [facility] PFIZER VACCINE 00:00:00 [facility] SARS-COV-2 COVID-19 2020-06-12 Completed [facility] PFIZER VACCINE 00:00:00 [facility] SARS-COV-2 COVID-19 2020-06-12 Completed [facility] PFIZER VACCINE 00:00:00 [facility] SARS-COV-2 COVID-19 2020-06-12 Completed [facility] PFIZER VACCINE 00:00:00 [facility] SARS-COV-2 COVID-19 2020-06-12 Completed [facility] PFIZER VACCINE 00:00:00 [facility] SARS-COV-2 COVID-19 2020-06-12 Completed [facility] PFIZER VACCINE 00:00:00 [facility] SARS-COV-2 COVID-19 2020-06-12 Completed [facility] PFIZER VACCINE 00:00:00 [facility] SARS-COV-2 COVID-19 2020-05-22 Completed [facility] PFIZER VACCINE 00:00:00 [facility] SARS-COV-2 COVID-19 2020-05-22 Completed [facility] PFIZER VACCINE 00:00:00 [facility] SARS-COV-2 COVID-19 2020-05-22 Completed [facility] PFIZER VACCINE 00:00:00 [facility] SARS-COV-2 COVID-19 2020-05-22 Completed [facility] PFIZER VACCINE 00:00:00 [facility] SARS-COV-2 COVID-19 2020-05-22 Completed [facility] PFIZER VACCINE 00:00:00 [facility] SARS-COV-2 COVID-19 2020-05-22 Completed [facility] PFIZER VACCINE 00:00:00 [facility] SARS-COV-2 COVID-19 2020-05-22 Completed [facility] PFIZER VACCINE 00:00:00 [facility] SARS-COV-2 COVID-19 2020-05-22 Completed [facility] PFIZER VACCINE 00:00:00 [facility] SARS-COV-2 COVID-19 2020-05-22 Completed [facility] PFIZER VACCINE 00:00:00 [facility] SARS-COV-2 COVID-19 2020-05-22 Completed [facility] PFIZER VACCINE 00:00:00 [facility] SARS-COV-2 COVID-19 2020-05-22 Completed [facility] PFIZER VACCINE 00:00:00 [facility] SARS-COV-2 COVID-19 2020-05-22 Completed [facility] PFIZER VACCINE 00:00:00 [facility] SARS-COV-2 COVID-19 2020-05-22 Completed [facility] PFIZER VACCINE 00:00:00 [facility] SARS-COV-2 COVID-19 2020-05-22 Completed [facility] PFIZER VACCINE 00:00:00 [facility] SARS-COV-2 COVID-19 2020-05-22 Completed [facility] PFIZER VACCINE 00:00:00 [facility] SARS-COV-2 COVID-19 2020-05-22 Completed [facility] PFIZER VACCINE 00:00:00 [facility] SARS-COV-2 COVID-19 2020-05-22 Completed [facility] PFIZER VACCINE 00:00:00 [facility] SARS-COV-2 COVID-19 2020-05-22 Completed [facility] PFIZER VACCINE 00:00:00 [facility] SARS-COV-2 COVID-19 2020-05-22 Completed [facility] PFIZER VACCINE 00:00:00 [facility] SARS-COV-2 COVID-19 2020-05-22 Completed [facility] PFIZER VACCINE 00:00:00 [facility] SARS-COV-2 COVID-19 2020-05-22 Completed [facility] PFIZER VACCINE 00:00:00 [facility] SARS-COV-2 COVID-19 2020-05-22 Completed [facility] PFIZER VACCINE 00:00:00 [facility] SARS-COV-2 COVID-19 2020-05-22 Completed [facility] PFIZER VACCINE 00:00:00 [facility] SARS-COV-2 COVID-19 2020-05-22 Completed [facility] PFIZER VACCINE 00:00:00 [facility] SARS-COV-2 COVID-19 2020-05-22 Completed [facility] PFIZER VACCINE 00:00:00 [facility] SARS-COV-2 COVID-19 2020-05-22 Completed [facility] PFIZER VACCINE 00:00:00 [facility] SARS-COV-2 COVID-19 2020-05-22 Completed [facility] PFIZER VACCINE 00:00:00 [facility] SARS-COV-2 COVID-19 2020-05-22 Completed [facility] PFIZER VACCINE 00:00:00 [facility] SARS-COV-2 COVID-19 2020-05-22 Completed [facility] PFIZER VACCINE 00:00:00 [facility] SARS-COV-2 COVID-19 2020-05-22 Completed [facility] PFIZER VACCINE 00:00:00 [facility] SARS-COV-2 COVID-19 2020-05-22 Completed [facility] PFIZER VACCINE 00:00:00 [facility] SARS-COV-2 COVID-19 2020-05-22 Completed [facility] PFIZER VACCINE 00:00:00 [facility] SARS-COV-2 COVID-19 2020-05-22 Completed [facility] PFIZER VACCINE 00:00:00 [facility] SARS-COV-2 COVID-19 2020-05-22 Completed [facility] PFIZER VACCINE 00:00:00 [facility] SARS-COV-2 COVID-19 2020-05-22 Completed [facility] PFIZER VACCINE 00:00:00 [facility] SARS-COV-2 COVID-19 2020-05-22 Completed [facility] PFIZER VACCINE 00:00:00 [facility] SARS-COV-2 COVID-19 2020-05-22 Completed [facility] PFIZER VACCINE 00:00:00 [facility] SARS-COV-2 COVID-19 2020-05-22 Completed [facility] PFIZER VACCINE 00:00:00 [facility] SARS-COV-2 COVID-19 2020-05-22 Completed [facility] PFIZER VACCINE 00:00:00 [facility] SARS-COV-2 COVID-19 2020-05-22 Completed [facility] PFIZER VACCINE 00:00:00 [facility] SARS-COV-2 COVID-19 2020-05-22 Completed [facility] PFIZER VACCINE 00:00:00 [facility] SARS-COV-2 COVID-19 2020-05-22 Completed [facility] PFIZER VACCINE 00:00:00 [facility] SARS-COV-2 COVID-19 2020-05-22 Completed [facility] PFIZER VACCINE 00:00:00 [facility] SARS-COV-2 COVID-19 2020-05-22 Completed [facility] PFIZER VACCINE 00:00:00 [facility] SARS-COV-2 COVID-19 2020-05-22 Completed [facility] PFIZER VACCINE 00:00:00 [facility] SARS-COV-2 COVID-19 2020-05-22 Completed [facility] PFIZER VACCINE 00:00:00 [facility] SARS-COV-2 COVID-19 2020-05-22 Completed [facility] PFIZER VACCINE 00:00:00 [facility] SARS-COV-2 COVID-19 2020-05-22 Completed [facility] PFIZER VACCINE 00:00:00 [facility] SARS-COV-2 COVID-19 2020-05-22 Completed [facility] PFIZER VACCINE 00:00:00 [facility] SARS-COV-2 COVID-19 2020-05-22 Completed [facility] PFIZER VACCINE 00:00:00 [facility] SARS-COV-2 COVID-19 2020-05-22 Completed [facility] PFIZER VACCINE 00:00:00 [facility] SARS-COV-2 COVID-19 2020-05-22 Completed [facility] PFIZER VACCINE 00:00:00 [facility] SARS-COV-2 COVID-19 2020-05-22 Completed [facility] PFIZER VACCINE 00:00:00 [facility] SARS-COV-2 COVID-19 2020-05-22 Completed [facility] PFIZER VACCINE 00:00:00 [facility] SARS-COV-2 COVID-19 2020-05-22 Completed [facility] PFIZER VACCINE 00:00:00 [facility] SARS-COV-2 COVID-19 2020-05-22 Completed [facility] PFIZER VACCINE 00:00:00 [facility] SARS-COV-2 COVID-19 2020-05-22 Completed [facility] PFIZER VACCINE 00:00:00 [facility] SARS-COV-2 COVID-19 2020-05-22 Completed [facility] PFIZER VACCINE 00:00:00 [facility] SARS-COV-2 COVID-19 2020-05-22 Completed [facility] PFIZER VACCINE 00:00:00 [facility] SARS-COV-2 COVID-19 2020-05-22 Completed [facility] PFIZER VACCINE 00:00:00 [facility] Influenza High Dose 2020-01-12 Completed [facility] 00:00:00 [facility] Influenza High Dose 2020-01-12 Completed [facility] 00:00:00 [facility] Influenza High Dose 2020-01-12 Completed [facility] 00:00:00 [facility] Influenza High Dose 2020-01-12 Completed [facility] 00:00:00 [facility] Influenza High Dose 2020-01-12 Completed [facility] 00:00:00 [facility] Influenza High Dose 2020-01-12 Completed [facility] 00:00:00 [facility] Influenza High Dose 2020-01-12 Completed [facility] 00:00:00 [facility] Influenza High Dose 2020-01-12 Completed [facility] 00:00:00 [facility] Influenza High Dose 2020-01-12 Completed [facility] 00:00:00 [facility] Influenza High Dose 2020-01-12 Completed [facility] 00:00:00 [facility] Influenza High Dose 2020-01-12 Completed [facility] 00:00:00 [facility] Influenza High Dose 2020-01-12 Completed [facility] 00:00:00 [facility] Influenza High Dose 2020-01-12 Completed [facility] 00:00:00 [facility] Influenza High Dose 2020-01-12 Completed [facility] 00:00:00 [facility] Influenza High Dose 2020-01-12 Completed [facility] 00:00:00 [facility] Influenza High Dose 2020-01-12 Completed [facility] 00:00:00 [facility] Influenza High Dose 2020-01-12 Completed [facility] 00:00:00 [facility] Influenza High Dose 2020-01-12 Completed [facility] 00[facility]00:00 [facility] Influenza High Dose 2020-01-12 Completed [facility] 00:00:00 [facility] Influenza High Dose 2020-01-12 Completed [facility] 00:00:00 [facility] Influenza High Dose 2020-01-12 Completed [facility] 00:00:00 [facility] Influenza High Dose 2020-01-12 Completed [facility] 00:00:00 [facility] Influenza High Dose 2020-01-12 Completed [facility] 00:00:00 [facility] Influenza High Dose 2020-01-12 Completed [facility] 00:00:00 [facility] Influenza High Dose 2020-01-12 Completed [facility] 00:00:00 [facility] Influenza High Dose 2020-01-12 Completed [facility] 00:00:00 [facility] Influenza High Dose 2020-01-12 Completed [facility] 00:00:00 [facility] Influenza High Dose 2020-01-12 Completed [facility] 00:00:00 [facility] Influenza High Dose 2020-01-12 Completed [facility] 00:00:00 [facility] Branch Influenza High Dose 2020-01-12 Completed [facility] 00:00:00 [facility] Branch Influenza High Dose 2020-01-12 Completed [facility] 00:00:00 [facility] Branch Influenza High Dose 2020-01-12 Completed [facility] 00:00:00 [facility] Branch Influenza High Dose 2020-01-12 Completed [facility] 00:00:00 [facility] Branch Influenza High Dose 2020-01-12 Completed [facility] 00:00:00 [facility] Branch Influenza High Dose 2020-01-12 Completed [facility] 00:00:00 [facility] Branch Influenza High Dose 2020-01-12 Completed [facility] 00:00:00 [facility] Branch Influenza High Dose 2020-01-12 Completed [facility] 00:00:00 [facility] Branch Influenza High Dose 2020-01-12 Completed [facility] 00:00:00 [facility] Branch Influenza High Dose 2020-01-12 Completed [facility] 00:00:00 [facility] Influenza High Dose 2020-01-12 Completed [facility] 00:00:00 [facility] Influenza High Dose 2020-01-12 Completed [facility] 00:00:00 [facility] Influenza High Dose 2020-01-12 Completed [facility] 00:00:00 [facility] Influenza High Dose 2020-01-12 Completed [facility] 00:00:00 [facility] Influenza High Dose 2020-01-12 Completed [facility] 00:00:00 [facility] Influenza High Dose 2020-01-12 Completed [facility] 00:00:00 [facility] Influenza High Dose 2020-01-12 Completed [facility] 00:00:00 [facility] Influenza High Dose 2020-01-12 Completed [facility] 00:00:00 [facility] Influenza High Dose 2020-01-12 Completed [facility] 00:00:00 [facility] Influenza High Dose 2020-01-12 Completed [facility] 00:00:00 [facility] Influenza High Dose 2020-01-12 Completed [facility] 00:00:00 [facility] Influenza High Dose 2020-01-12 Completed [facility] 00:00:00 [facility] Influenza High Dose 2020-01-12 Completed [facility] 00:00:00 [facility] Influenza High Dose 2020-01-12 Completed [facility] 00:00:00 [facility] Influenza High Dose 2020-01-12 Completed [facility] 00:00:00 [facility] Influenza High Dose 2020-01-12 Completed [facility] 00:00:00 [facility] Influenza High Dose 2020-01-12 Completed [facility] 00:00:00 [facility] Influenza High Dose 2020-01-12 Completed [facility] 00:00:00 [facility] Influenza High Dose 2020-01-12 Completed [facility] 00:00:00 [facility] Influenza High Dose 2020-01-12 Completed [facility] 00:00:00 [facility] Influenza High Dose 2020-01-12 Completed [facility] 00[facility]00:00 [facility] TDAP 2019-02-23 Completed [facility] of 00:00:00 [facility] Influenza High Dose 2019-02-23 Completed [facility] of 00:00:00 [facility] Pneumococcal 13 2019-02-23 Completed Universit y of Conjugate, PCV13 00:00:00 [facility] dical (Prevnar 13) Branch TDAP 2019-02-23 Completed [facility] of 00:00:00 [facility] Influenza High Dose 2019-02-23 Completed [facility] of 00:00:00 [facility] Pneumococcal 13 2019-02-23 Completed [facility] y of Conjugate, PCV13 00:00:00 [facility] dical (Prevnar 13) Branch TDAP 2019-02-23 Completed [facility] of 00:00:00 [facility] Influenza High Dose 2019-02-23 Completed [facility] of 00:00:00 [facility] Pneumococcal 13 2019-02-23 Completed [facility] of Conjugate, PCV13 00:00:00 [facility] dical (Prevnar 13) Branch TDAP 2019-02-23 Completed [facility] of 00:00:00 [facility] Influenza High Dose 2019-02-23 Completed [facility] of 00:00:00 [facility] Pneumococcal 13 2019-02-23 Completed [facility] y of Conjugate, PCV13 00:00:00 [facility] dical (Prevnar 13) Branch TDAP 2019-02-23 Completed [facility] of 00:00:00 [facility] Influenza High Dose 2019-02-23 Completed [facility] of 00:00:00 [facility] Pneumococcal 13 2019-02-23 Completed [facility] of Conjugate, PCV13 00:00:00 [facility] dical (Prevnar 13) Branch TDAP 2019-02-23 Completed [facility] of 00:00:00 [facility] Influenza High Dose 2019-02-23 Completed [facility] of 00:00:00 [facility] Pneumococcal 13 2019-02-23 Completed [facility]it y of Conjugate, PCV13 00:00:00 [facility] dical (Prevnar 13) Branch TDAP 2019-02-23 Completed [facility] of 00:00:00 [facility] Influenza High Dose 2019-02-23 Completed [facility] of 00:00:00 [facility] Pneumococcal 13 2019-02-23 Completed [facility]it y of Conjugate, PCV13 00:00:00 [facility] dical (Prevnar 13) Branch TDAP 2019-02-23 Completed [facility] of 00:00:00 [facility] Influenza High Dose 2019-02-23 Completed [facility] of 00:00:00 [facility] Pneumococcal 13 2019-02-23 Completed [facility] y of Conjugate, PCV13 00:00:00 [facility] dical (Prevnar 13) Branch TDAP 2019-02-23 Completed [facility] of 00:00:00 [facility] Influenza High Dose 2019-02-23 Completed [facility] of 00:00:00 [facility] Pneumococcal 13 2019-02-23 Completed [facility] y of Conjugate, PCV13 00:00:00 [facility] dical (Prevnar 13) Branch TDAP 2019-02-23 Completed [facility] of 00:00:00 [facility] Influenza High Dose 2019-02-23 Completed [facility] of 00:00:00 [facility] Pneumococcal 13 2019-02-23 Completed [facility] y of Conjugate, PCV13 00:00:00 [facility] dical (Prevnar 13) Branch TDAP 2019-02-23 Completed [facility] of 00:00:00 [facility] Influenza High Dose 2019-02-23 Completed [facility] of 00:00:00 [facility] Pneumococcal 13 2019-02-23 Completed [facility] y of Conjugate, PCV13 00:00:00 [facility] dical (Prevnar 13) Branch TDAP 2019-02-23 Completed [facility] of 00:00:00 [facility] Influenza High Dose 2019-02-23 Completed [facility]ity of 00:00:00 [facility] Pneumococcal 13 2019-02-23 Completed [facility]it y of Conjugate, PCV13 00:00:00 [facility] dical (Prevnar 13) Branch TDAP 2019-02-23 Completed [facility] of 00:00:00 [facility] Influenza High Dose 2019-02-23 Completed [facility] of 00:00:00 [facility] Pneumococcal 13 2019-02-23 Completed Universit y of Conjugate, PCV13 00:00:00 [facility] dical (Prevnar 13) Branch TDAP 2019-02-23 Completed University of 00:00:00 [facility] Influenza High Dose 2019-02-23 Completed [facility] of 00:00:00 [facility] Pneumococcal 13 2019-02-23 Completed [facility] y of Conjugate, PCV13 00:00:00 [place] [facility] (Prevnar 13) Branch TDAP 2019-02-23 Completed [facility] of 00:00:00 [facility] Influenza High Dose 2019-02-23 Completed [facility]ity of 00:00:00 [facility] Pneumococcal 13 2019-02-23 Completed Universit y of Conjugate, PCV13 00:00:00 [facility] dical (Prevnar 13) Branch TDAP 2019-02-23 Completed University of 00:00:00 [facility] Influenza High Dose 2019-02-23 Completed [facility]ity of 00:00:00 [facility] Pneumococcal 13 2019-02-23 Completed [facility] y of Conjugate, PCV13 00:00:00 [place] [facility] (Prevnar 13) Branch TDAP 2019-02-23 Completed [facility] of 00:00:00 [facility] Influenza High Dose 2019-02-23 Completed [facility]ive [facility]ity of 00:00:00 [facility] Pneumococcal 13 2019-02-23 Completed Universit y of Conjugate, PCV13 00:00:00 [facility] dical (Prevnar 13) Branch TDAP 2019-02-23 Completed University of 00:00:00 [facility] Influenza High Dose 2019-02-23 Completed [facility] of 00:00:00 [facility] Pneumococcal 13 2019-02-23 Completed [facility]it y of Conjugate, PCV13 00:00:00 [facility] dical (Prevnar 13) Branch TDAP 2019-02-23 Completed University of 00:00:00 [facility] Influenza High Dose 2019-02-23 Completed [facility]ive [facility]ity of 00:00:00 [facility] Pneumococcal 13 2019-02-23 Completed [facility]it y of Conjugate, PCV13 00:00:00 [facility] dical (Prevnar 13) Branch TDAP 2019-02-23 Completed [facility] of 00:00:00 [facility] Influenza High Dose 2019-02-23 Completed [facility]ive [facility]ity of 00:00:00 [facility] Pneumococcal 13 2019-02-23 Completed [facility] y of Conjugate, PCV13 00:00:00 [facility] dical (Prevnar 13) Branch TDAP 2019-02-23 Completed University of 00:00:00 [facility] Influenza High Dose 2019-02-23 Completed [facility]ive [facility]ity of 00:00:00 [facility] Pneumococcal 13 2019-02-23 Completed [facility] of Conjugate, PCV13 00:00:00 [place] [facility] (Prevnar 13) Branch TDAP 2019-02-23 Completed [facility] of 00:00:00 [facility] Influenza High Dose 2019-02-23 Completed [facility] of 00:00:00 [facility] Pneumococcal 13 2019-02-23 Completed Universit y of Conjugate, PCV13 00:00:00 [facility] dical (Prevnar 13) Branch TDAP 2019-02-23 Completed [facility] of 00:00:00 [facility] Influenza High Dose 2019-02-23 Completed [facility]ive [facility]ity of 00:00:00 [facility] Pneumococcal 13 2019-02-23 Completed [facility] y of Conjugate, PCV13 00:00:00 [facility] dical (Prevnar 13) Branch TDAP 2019-02-23 Completed [facility] of 00:00:00 [facility] Influenza High Dose 2019-02-23 Completed [facility]ive [facility]ity of 00:00:00 [facility] Pneumococcal 13 2019-02-23 Completed Universit y of Conjugate, PCV13 00:00:00 [facility] dical (Prevnar 13) Branch TDAP 2019-02-23 Completed University of 00:00:00 [facility] Influenza High Dose 2019-02-23 Completed [facility]ity of 00:00:00 [facility] Pneumococcal 13 2019-02-23 Completed Universit y of Conjugate, PCV13 00:00:00 [facility] dical (Prevnar 13) Branch TDAP 2019-02-23 Completed University of 00:00:00 [facility] Influenza High Dose 2019-02-23 Completed Unive [facility]ity of 00:00:00 [facility] Pneumococcal 13 2019-02-23 Completed Univers[facility] y of Conjugate, PCV13 00:00:00 [facility] dical (Prevnar 13) Branch TDAP 2019-02-23 Completed [facility] of 00:00:00 [facility] Influenza High Dose 2019-02-23 Completed [facility]ive [facility]ity of 00:00:00 [facility] Pneumococcal 13 2019-02-23 Completed Univers[facility] y of Conjugate, PCV13 00:00:00 [facility] dical (Prevnar 13) Branch TDAP 2019-02-23 Completed University of 00:00:00 [facility] Influenza High Dose 2019-02-23 Completed [facility]ive [facility]ity of 00:00:00 [facility] Pneumococcal 13 2019-02-23 Completed [facility]it y of Conjugate, PCV13 00:00:00 [place] [facility] (Prevnar 13) Branch TDAP 2019-02-23 Completed [facility] of 00:00:00 [facility] Influenza High Dose 2019-02-23 Completed [facility] of 00:00:00 [facility] Pneumococcal 13 2019-02-23 Completed [facility] y of Conjugate, PCV13 00:00:00 [facility] dical (Prevnar 13) Branch TDAP 2019-02-23 Completed [facility] of 00:00:00 [facility] Influenza High Dose 2019-02-23 Completed [facility]ity of 00:00:00 [facility] Pneumococcal 13 2019-02-23 Completed [facility] y of Conjugate, PCV13 00:00:00 [facility] dical (Prevnar 13) Branch TDAP 2019-02-23 Completed [facility] of 00:00:00 [facility] Influenza High Dose 2019-02-23 Completed [facility]ity of 00:00:00 [facility] Pneumococcal 13 2019-02-23 Completed [facility] y of Conjugate, PCV13 00:00:00 [facility] dical (Prevnar 13) Branch TDAP 2019-02-23 Completed [facility] of 00:00:00 [facility] Influenza High Dose 2019-02-23 Completed [facility] of 00:00:00 [facility] Pneumococcal 13 2019-02-23 Completed [facility] y of Conjugate, PCV13 00:00:00 [facility] dical (Prevnar 13) Branch TDAP 2019-02-23 Completed [facility] of 00:00:00 [facility] Influenza High Dose 2019-02-23 Completed [facility] of 00:00:00 [facility] Pneumococcal 13 2019-02-23 Completed [facility] y of Conjugate, PCV13 00:00:00 [facility] dical (Prevnar 13) Branch TDAP 2019-02-23 Completed [facility] of 00:00:00 [facility] Influenza High Dose 2019-02-23 Completed [facility] of 00:00:00 [facility] Pneumococcal 13 2019-02-23 Completed [facility] y of Conjugate, PCV13 00:00:00 [facility] dical (Prevnar 13) Branch TDAP 2019-02-23 Completed [facility] of 00:00:00 [facility] Influenza High Dose 2019-02-23 Completed [facility]ity of 00:00:00 [facility] Pneumococcal 13 2019-02-23 Completed [facility] y of Conjugate, PCV13 00:00:00 [facility] dical (Prevnar 13) Branch TDAP 2019-02-23 Completed [facility] of 00:00:00 [facility] Influenza High Dose 2019-02-23 Completed [facility]ity of 00:00:00 [facility] Pneumococcal 13 2019-02-23 Completed [facility] y of Conjugate, PCV13 00:00:00 [facility] dical (Prevnar 13) Branch TDAP 2019-02-23 Completed [facility] of 00:00:00 [facility] Influenza High Dose 2019-02-23 Completed [facility]ity of 00:00:00 [facility] Pneumococcal 13 2019-02-23 Completed [facility] y of Conjugate, PCV13 00:00:00 [facility] dical (Prevnar 13) Branch TDAP 2019-02-23 Completed [facility] of 00:00:00 [facility] Influenza High Dose 2019-02-23 Completed [facility]ity of 00:00:00 [facility] Pneumococcal 13 2019-02-23 Completed [facility] y of Conjugate, PCV13 00:00:00 [facility] dical (Prevnar 13) Branch TDAP 2019-02-23 Completed [facility] of 00:00:00 [facility] Influenza High Dose 2019-02-23 Completed [facility]ity of 00:00:00 [facility] Pneumococcal 13 2019-02-23 Completed [facility] y of Conjugate, PCV13 00:00:00 [facility] dical (Prevnar 13) Branch TDAP 2019-02-23 Completed [facility] of 00:00:00 [facility] Influenza High Dose 2019-02-23 Completed [facility]ity of 00:00:00 [facility] Pneumococcal 13 2019-02-23 Completed [facility] y of Conjugate, PCV13 00:00:00 [facility] dical (Prevnar 13) Branch TDAP 2019-02-23 Completed [facility] of 00:00:00 [facility] Influenza High Dose 2019-02-23 Completed [facility]ity of 00:00:00 [facility] Pneumococcal 13 2019-02-23 Completed [facility] y of Conjugate, PCV13 00:00:00 [facility] dical (Prevnar 13) Branch TDAP 2019-02-23 Completed [facility] of 00:00:00 [facility] Influenza High Dose 2019-02-23 Completed [facility]ive [facility]ity of 00:00:00 [facility] Pneumococcal 13 2019-02-23 Completed [facility] y of Conjugate, PCV13 00:00:00 [facility] dical (Prevnar 13) Branch TD 2019-02-23 Completed [facility] of 00:00:00 [facility] Influenza High Dose 2019-02-23 Completed [facility]ive [facility]ity of 00:00:00 [facility] Pneumococcal 13 2019-02-23 Completed [facility] y of Conjugate, PCV13 00:00:00 [facility] dical (Prevnar 13) Branch TDAP 2019-02-23 Completed [facility] of 00:00:00 [facility] Influenza High Dose 2019-02-23 Completed [facility]ity of 00:00:00 [facility] Pneumococcal 13 2019-02-23 Completed [facility] y of Conjugate, PCV13 00:00:00 [facility] dical (Prevnar 13) Branch TDAP 2019-02-23 Completed [facility] of 00:00:00 [facility] Influenza High Dose 2019-02-23 Completed [facility] of 00:00:00 [facility] Pneumococcal 13 2019-02-23 Completed [facility] y of Conjugate, PCV13 00:00:00 [facility] dical (Prevnar 13) Branch TDAP 2019-02-23 Completed [facility] of 00:00:00 [facility] Influenza High Dose 2019-02-23 Completed [facility]ity of 00:00:00 [facility] Pneumococcal 13 2019-02-23 Completed [facility] y of Conjugate, PCV13 00:00:00 [facility] dical (Prevnar 13) Branch TDAP 2019-02-23 Completed [facility] of 00:00:00 [facility] Influenza High Dose 2019-02-23 Completed [facility]ity of 00:00:00 [facility] Pneumococcal 13 2019-02-23 Completed [facility] y of Conjugate, PCV13 00:00:00 [facility] dical (Prevnar 13) Branch TDAP 2019-02-23 Completed [facility] of 00:00:00 [facility] Influenza High Dose 2019-02-23 Completed [facility]ity of 00:00:00 [facility] Pneumococcal 13 2019-02-23 Completed [facility] y of Conjugate, PCV13 00:00:00 [facility] dical (Prevnar 13) Branch TDAP 2019-02-23 Completed [facility] of 00:00:00 [facility] Influenza High Dose 2019-02-23 Completed [facility] of 00:00:00 [facility] Pneumococcal 13 2019-02-23 Completed [facility] y of Conjugate, PCV13 00:00:00 [facility] dical (Prevnar 13) Branch TDAP 2019-02-23 Completed [facility] of 00:00:00 [facility] Influenza High Dose 2019-02-23 Completed [facility]ity of 00:00:00 [facility] Pneumococcal 13 2019-02-23 Completed Universit y of Conjugate, PCV13 00:00:00 [facility] dical (Prevnar 13) Branch TDAP 2019-02-23 Completed [facility] of 00:00:00 [facility] Influenza High Dose 2019-02-23 Completed [facility]ity of 00:00:00 [facility] Pneumococcal 13 2019-02-23 Completed Universit y of Conjugate, PCV13 00:00:00 [facility] dical (Prevnar 13) Branch TDAP 2019-02-23 Completed [facility] of 00:00:00 [facility] Influenza High Dose 2019-02-23 Completed [facility]ity of 00:00:00 [facility] Pneumococcal 13 2019-02-23 Completed [facility] y of Conjugate, PCV13 00:00:00 [facility] dical (Prevnar 13) Branch TDAP 2019-02-23 Completed [facility] of 00:00:00 [facility] Influenza High Dose 2019-02-23 Completed [facility] of 00:00:00 [facility] Pneumococcal 13 2019-02-23 Completed [facility] y of Conjugate, PCV13 00:00:00 [facility] dical (Prevnar 13) Branch TDAP 2019-02-23 Completed [facility] of 00:00:00 [facility] Influenza High Dose 2019-02-23 Completed [facility] of 00:00:00 [facility] Pneumococcal 13 2019-02-23 Completed [facility] y of Conjugate, PCV13 00:00:00 [facility] dical (Prevnar 13) Branch TDAP 2019-02-23 Completed [facility] of 00:00:00 [facility] Influenza High Dose 2019-02-23 Completed [facility] of 00:00:00 [facility] Pneumococcal 13 2019-02-23 Completed [facility] y of Conjugate, PCV13 00:00:00 [facility] dical (Prevnar 13) Branch TDAP 2019-02-23 Completed [facility] 00:00:00 [facility] Influenza High Dose 2019-02-23 Completed [facility] of 00:00:00 [facility] Pneumococcal 13 2019-02-23 Completed Univers[facility] y of Conjugate, PCV13 00:00:00 [facility] dical (Prevnar 13) Branch TDAP 2019-02-23 Completed [facility] 00:00:00 [facility] [facility] Influenza High Dose 2019-02-23 Completed Unive rsity of 00:00:00 [facility] Pneumococcal 13 2019-02-23 Completed Universit y of Conjugate, PCV13 00:00:00 [facility] dical (Prevnar 13) Branch TDAP 2019-02-23 Completed University of 00:00:00 [facility] Influenza High Dose 2019-02-23 Completed Unive rsity of 00:00:00 [facility] Pneumococcal 13 2019-02-23 Completed Universit y of Conjugate, PCV13 00:00:00 [facility] dical (Prevnar 13) Branch AP 2019-02-23 Completed University of 00:00:00 [facility] Influenza High Dose 2019-02-23 Completed Unive rsity of 00:00:00 [facility] Pneumococcal 13 2019-02-23 Completed Universit y of Conjugate, PCV13 00:00:00 [facility] dical (Prevnar 13) Branch [facility] 2019-02-23 Completed University of 00:00:00 [facility] Influenza High Dose 2019-02-23 Completed Unive rsity of 00:00:00 [facility] Pneumococcal 13 2019-02-23 Completed Universit y of Conjugate, PCV13 00:00:00 [facility] dical (Prevnar 13) [place] Vital Signs Vital Name Observation Time Observation Value Comments Source Systolic blood 2022-10-03 21:00:00 129 mm[Hg] Univer sity of pressure [facility] Diastolic blood 2022-10-03 21:00:00 73 mm[Hg] Unive rsity of pressure [facility] Heart rate 2022-10-03 21:00:00 92 /min [facility] Body temperature 2022-10-03 21:00:00 36.44 Vee [facility] Respiratory rate 2022-10-03 21:00:00 18 /min [facility] Body height 2022-10-03 21:00:00 175.3 cm [facility] Body weight 2022-10-03 21:00:00 91.899 kg [facility] BMI 2022-10-03 21:00:00 29.92 kg/m2 [facility] Oxygen saturation in 2022-10-03 21:00:00 97 /min [facility] Arterial blood by [facility] Pulse oximetry Branch Systolic blood 2022-09-30 01:00:00 145 mm[Hg] Univer sity of pressure [facility] Diastolic blood 2022-09-30 01:00:00 54 mm[Hg] Unive rsity of pressure [facility] Heart rate 2022-09-30 01:00:00 80 /min Universi ty of [facility] Respiratory rate 2022-09-30 01:00:00 18 /min Univ ersity of [facility] Oxygen saturation in 2022-09-30 01:00:00 98 /min University of Arterial blood by [facility] Pulse oximetry Branch Body temperature 2022-09-29 23:43:18 37.11 Vee Univ ersity of [facility] Body height 2022-09-29 22:52:00 175.3 cm [facility] Body weight 2022-09-29 22:52:00 94.348 kg [facility] BMI 2022-09-29 22:52:00 30.72 kg/m2 [facility] Systolic blood 2022-09-24 19:43:00 104 mm[Hg] Univer sity of pressure [facility] Diastolic blood 2022-09-24 19:43:00 69 mm[Hg] Unive rsity of pressure [facility] Heart rate 2022-09-24 19:43:00 89 /min [facility] Body temperature 2022-09-24 19:40:00 36.67 Vee Univ ersity of [facility] Body height 2022-09-24 19:40:00 172.7 cm [facility] Body weight 2022-09-24 19:40:00 94.53 kg [facility] BMI 2022-09-24 19:40:00 31.69 kg/m2 [facility] Oxygen saturation in 2022-09-24 19:40:00 98 /min University of Arterial blood by [facility] Pulse oximetry Branch Systolic blood 2022-09-12 08:43:43 167 mm[Hg] Univer sity of pressure [facility] Diastolic blood 2022-09-12 08:43:43 77 mm[Hg] Unive rsity of pressure [facility] Heart rate 2022-09-12 08:43:43 84 /min [facility] Body temperature 2022-09-12 08:43:43 36.83 Vee Univ ersity of [facility] Respiratory rate 2022-09-12 08:43:43 18 /min Univ ersity of [facility] Oxygen saturation in 2022-09-12 08:43:43 97 /min University of Arterial blood by [facility] Pulse oximetry Branch Body height 2022-09-12 02:33:00 172.7 cm [facility] Body weight 2022-09-12 02:33:00 93.441 kg [facility] BMI 2022-09-12 02:33:00 31.32 kg/m2 [facility] Systolic blood 2022-08-28 15:55:00 113 mm[Hg] Univer sity of pressure [facility] Diastolic blood 2022-08-28 15:55:00 74 mm[Hg] Unive rsity of pressure [facility] Heart rate 2022-08-28 15:53:00 93 /min [facility] Body temperature 2022-08-28 15:53:00 36.5 Vee Univ ersity of [facility] Respiratory rate 2022-08-28 15:53:00 18 /min Univ ersity of [facility] Body height 2022-08-28 15:53:00 175.3 cm [facility] Body weight 2022-08-28 15:53:00 93.577 kg [facility] BMI 2022-08-28 15:53:00 30.47 kg/m2 [facility] Oxygen saturation in 2022-08-28 15:53:00 99 /min University of Arterial blood by [facility] Pulse oximetry Branch Systolic blood 2022-05-12 16:16:00 136 mm[Hg] Univer sity of pressure [facility] Diastolic blood 2022-05-12 16:16:00 72 mm[Hg] Unive rsity of pressure [facility] Heart rate 2022-05-12 16:16:00 91 /min [facility] Body temperature 2022-05-12 16:16:00 36.78 Vee Univ ersity of [facility] Respiratory rate 2022-05-12 16:16:00 16 /min Univ ersity of [facility] Body height 2022-05-12 16:16:00 175.3 cm [facility] Body weight 2022-05-12 16:16:00 95.255 kg [facility] BMI 2022-05-12 16:16:00 31.01 kg/m2 [facility] Oxygen saturation in 2022-05-12 16:16:00 98 /min University of Arterial blood by [facility] Pulse oximetry Branch Systolic blood 2022-02-18 20:32:00 126 mm[Hg] Univer sity of pressure [facility] Diastolic blood 2022-02-18 20:32:00 73 mm[Hg] Unive rsity of pressure [facility] Heart rate 2022-02-18 20:32:00 93 /min [facility] Body temperature 2022-02-18 20:32:00 36.61 Vee Univ ersity of [facility] Respiratory rate 2022-02-18 20:32:00 18 /min Univ ersity of [facility] Body height 2022-02-18 20:32:00 175.3 cm [facility] Body weight 2022-02-18 20:32:00 97.841 kg [facility] BMI 2022-02-18 20:32:00 31.85 kg/m2 [facility] Oxygen saturation in 2022-02-18 20:32:00 96 /min University of Arterial blood by [facility] Pulse oximetry Branch Systolic blood 2022-02-14 17:39:00 139 mm[Hg] Univer sity of pressure [facility] Diastolic blood 2022-02-14 17:39:00 79 mm[Hg] Unive rsity of pressure [facility] Heart rate 2022-02-14 17:39:00 90 /min [facility] Body temperature 2022-02-14 17:39:00 36.5 Vee Univ ersity of [facility] Respiratory rate 2022-02-14 17:39:00 18 /min Univ ersity of [facility] Body height 2022-02-14 17:39:00 175.3 cm [facility] Body weight 2022-02-14 17:39:00 94.348 kg [facility] BMI 2022-02-14 17:39:00 30.72 kg/m2 [facility] Oxygen saturation in 2022-02-14 17:39:00 99 /min University of Arterial blood by [employer] Pulse oximetry Branch Systolic blood 2022-01-27 21:02:00 164 mm[Hg] Univer sity of pressure [facility] Diastolic blood 2022-01-27 21:02:00 84 mm[Hg] Unive rsity of pressure [facility] Heart rate 2022-01-27 21:02:00 94 /min [facility] Body temperature 2022-01-27 21:02:00 36.89 Vee Univ ersity [facility] Respiratory rate 2022-01-27 21:02:00 18 /min Univ ersity of [facility] Body height 2022-01-27 21:02:00 172.7 cm [facility] Body weight 2022-01-27 21:02:00 94.62 kg [facility] BMI 2022-01-27 21:02:00 31.72 kg/m2 [facility] Oxygen saturation in 2022-01-27 21:02:00 98 /min University of Arterial blood by [facility] [employer] Pulse oximetry Branch Systolic blood 2021-12-23 16:07:00 152 mm[Hg] Univer sity of pressure [facility] Diastolic blood 2021-12-23 16:07:00 77 mm[Hg] Unive rsity of pressure [facility] Heart rate 2021-12-23 16:06:00 87 /min [facility] Body temperature 2021-12-23 16:06:00 36.83 Vee Univ [facility] Respiratory rate 2021-12-23 16:06:00 18 /min Univ ersity [facility] Body height 2021-12-23 16:06:00 175.3 cm [facility] Body weight 2021-12-23 16:06:00 95.255 kg [facility] BMI 2021-12-23 16:06:00 31.01 kg/m2 [facility] Oxygen saturation in 2021-12-23 16:06:00 97 /min University of Arterial blood by [employer] Pulse oximetry Branch Systolic blood 2021-12-06 20:46:00 114 mm[Hg] Univer [facility]ity of pressure [place] [facility] [place] Diastolic blood 2021-12-06 20:46:00 61 mm[Hg] [facility] Heart rate 2021-12-06 20:46:00 91 /min [facility] [place] Body temperature 2021-12-06 20:46:00 36.44 Vee [facility] Respiratory rate 2021-12-06 20:46:00 18 /min [facility] Body height 2021-12-06 20:46:00 175.3 cm [facility] [place] Body weight 2021-12-06 20:46:00 96.435 kg [facility] [place] BMI 2021-12-06 20:46:00 31.40 [facility]2 [facility] Oxygen saturation in 2021-12-06 20:46:00 97 /min [facility] Arterial blood by [facility] Pulse oximetry Branch Procedures Procedure Date / Time Performing Clinician Source Performed US RETROPERITONEAL 2022-10-23 19:24:36 Florencia Black [facility] COMPLETE Medical Branch REFERRAL- REQUEST/RESPONSE 2022-10-15 05:01:00 Doctor Ashish , [facility] Name Medical [place] EKG-12 LEAD 2022-09-30 01:28:34 German Womack [facility] BASIC METABOLIC PANEL (NA, 2022-09-29 23:33:00 German Womack [facility] K, CL, CO2, GLUCOSE, BUN, Medica l Branch CREATININE, CA) CONSENT/REFUSAL FOR 2022-09-29 22:47:58 Doctor Unacarrie, [facility] DIAGNOSIS AND TREATMENT [facility] [place] CBC WITH DIFF 2022-09-29 18:57:00 Felicia Worthington [facility] URINALYSIS 2022-09-12 04:57:00 Liliana Mitchell [facility] NOTICE OF PRIVACY 2022-09-12 02:23:41 Doctor Ashish, [facility] PRACTICES [facility] CONSENT/REFUSAL FOR 2022-09-12 02:23:15 Doctor Ashish [facility] DIAGNOSIS AND TREATMENT [facility] [place] REFERRAL- REQUEST/RESPONSE 2022-04-11 06:01:00 Doctor Unassigned , [facility] [place] DME/SUPPLY JUSTIFICATION 2022-03-11 06:01:00 Doctor Unassigned, [facility] [place] POCT URINALYSIS 2022-02-14 00:00:00 [facility] f [facility] ASSIGNMENT OF BENEFITS 2022-02-12 17:33:03 Doctor Unassigned, Un [facility] FLU 2021-12-23 16:43:12 Mary Ramírez [facility] VACC(),65+YR,0.5 Medica l Branch ML,IM,ADJUVANTED,QUAD(FLUA D) ASSIGNMENT OF BENEFITS 2021-12-23 15:52:15 Doctor Unassigned, Un [facility] Name [facility] Emergency Encounters Start End Encounter Admission Attending Care Care Encounter Source Date/Time Date/Time Type Type Clinicians Facility Department ID 2021-01-28 Inpatient [facility] IESHA [id number] Univers [facility] 2021-01-28 Outpatient [facility] IESHA [id number] Univers 10:31:33 [facility] 2021-01-27 [facility] [id number] Univers 11:25:21 PETTY [facility] 2022-12-17 2022-12-17 [id number] Univers 11:00:00 11:00:00 FELICIA anguiano [facility] 2022-11-10 2022-11-10 Ancillary Nakul Villanueva [facility] 1.2.840. 114 [id number] Univers 15:15:00 16:00:00 Visit Felicia Worthington 350.1.13.10 silvio rodriguez [place] 4.2.7.2.686 Abhay DE LEONIO [id number] [place] [address] Branch [facility] 2022-11-10 2022-11-10 [facility] [id number] Univers 15:15:00 15:15:00 FELICIA slivio [facility] 2022-11-10 2022-11-10 Outpatient R BRODIE [facility] [id number] Univers 09:30:00 09:30:00 PETTY anguiano [facility] 2022-11-07 2022-11-07 Ancillary Heidy Villanueva [facility] 1.2.840 .114 [id number] Univers 13:45:00 14:30:00 Visit Felicia Worthington 350.1.13.10 ity of [facility] [place] [id number] Or dical NAL 179 [facility] 2022-11-03 2022-11-03 Case Rich [facility] 1.2.840.114 [id number] Univers 00:00:00 00:00:00 Management Nakul FIELD 350.1.13.10 ity of [facility] [place] 4.[place].7.2.[place] [phone] Or dical NAL 179 [facility] 2022-10-29 2022-10-29 [facility]phone [facility] 1.2.840.114 [id number] Univers 00:00:00 00:00:00 Felicia FIELD 350.1.13.10 i ty of [facility] [place] 4.2.7.2.[place] [id number] Or dical NAL 044 [facility] 2022-10-27 2022-10-27 Outpatient R ROXY [facility] [id number] Univers 13:00:00 14:06:52 FELICIA silvio [facility] 2022-10-27 2022-10-27 Ancillary María Bautista [facility] 1 .2.840.114 [id number] Univers 13:00:00 14:06:52 Visit Felicia Worthington 350.1.13.10 ity of [facility] [place] 4.2.7.2.[place] [id number] Or dical NAL 179 [facility] 2022-10-23 2022-10-23 Outpatient R FLORENCIA BLACK [facility] [id number] Univers 13:45:28 23:59:00 FLORENCIA BLACK i ty of [facility] 2022-10-23 2022-10-23 Hospital [facility] 1.2.840.114 [id number] Univers 13:45:28 23:59:00 Encounter Florencia RASHIDA 350.1.13.10 [place] [id number] [facility] [address] [place] 2022-10-23 2022-10-23 Undergraduate Internship 2, Adc Lab [facility] 1.2.840.114 [id number] Univers 13:15:00 13:30:00 Visit Felicia Worthington 350.1.13.10 [place] of [place] [phone] Or dical NAL 353 [facility] 2022-10-15 2022-10-15 Telephone [facility] 1.2.840.114 1 [id number] Univers 00:00:00 00:00:00 Felicia FIELD 350.1.13.10 i ty [place] [id number] Or dical NAL 044 [facility] 2022-10-15 2022-10-15 Orders Doctor DIAZ 1.2.840.114 [id number] Univers 00:00:00 00:00:00 Only Unassigned, ASHLI 350.1.13.10 ity of [facility] 4.2.7.2.686 Candido as [id number] [facility] [address] [place] 2022-10-06 2022-10-06 Undergraduate Internship 2, Adc Lab [facility] 1.2.840.114 [id number] Univers 11:00:00 11:15:00 Visit Felicia Worthington 350.1.13.10 [place]y of [place] [id number] Or dical NAL 353 [facility] 2022-10-06 2022-10-06 Outpatient R ROXY [facility] [id number] Univers 11:00:00 11:00:00 FELICIA anguiano of [facility] 2022-10-03 2022-10-03 Outpatient R EDBARBYVESNA [facility] [id number] Univers 16:00:00 16:31:05 PETER ity of [facility] 2022-10-03 2022-10-03 Office [facility] 1.2.840.114 [id number] Univers 16:00:00 16:31:05 Visit Felicia FIELD 350.1.13.10 i ty [place] [phone] Or dical NAL 044 [facility] 2022-10-03 2022-10-03 Telephone [facility] 1.2.406.743 [id number] Univers 00:00:00 00:00:00 Florencia EMMANUELPEC 350.1.13.10 [place] of [place] 4[place]2.7.2.[place] EM[place] [id number] [facility] [address] [place] [facility] 2022-09-29 2022-09-29 Emergency [facility] 1.2.348.983 [id number] Univers 17:54:00 20:42:00 Meetabrad GIRONDAPHNIE 350.1.13.10 i ty of [place] 4.2.7.2.[place] [id number] [facility] 084 Branch 2022-09-29 2022-09-29 Undergraduate Internship Marianna, Adc Lab Main [facility] 1.2.8 40.114 [id number] Univers 13:30:00 13:45:00 Visit Florencia Black 350.1.13.10 ity of [facility] [place] 4.2.7.2.[place] [id number] Or dical NAL 353 [facility] 2022-09-29 2022-09-29 Outpatient R FLORENCIA BLACK [facility] 10 [id number] Univers 13:30:00 13:30:00 FRITZ BLACKYA i ty of [facility] 2022-09-29 2022-09-29 Outpatient R FLORENCIA BLACK [facility] ERT 10 [id number] Univers 13:30:00 13:30:00 MONAE FLORENCIA i ty of [facility] 2022-09-29 2022-09-29 Telephone RUTHANN Black 1.2.840.114 10 [id number] Univers 00:00:00 00:00:00 Florencia Y HEALTH 350.1.13.10 i ty of CLINICS 4.2.7.2.686 [facility] [id number] [facility] 312 Branch 2022-09-26 2022-09-26 Telephone Monae [facility] 1.2.609.781 [id number] Univers 00:00:00 00:00:00 Florencia MULTISPEC 350.1.13.10 ity of [place] 4.2.7.2.686 [facility] [phone] [address] DIABETES CLINIC 2022-09-24 2022-09-24 Undergraduate Internship Vt-Lab [facility] 1.2.840.114 [id number] Univers 15:30:00 15:45:00 Visit MonaeFlorencia 350.1.13.10 ity of [place] 4.2.7.2.686 [facility] [id number] [facility] [address] [place] [facility] 2022-09-24 2022-09-24 Outpatient R FLORENCIA BLACK [facility] 10 [id number] Univers 14:30:00 15:05:48 FLORENCIA BLACK i ty of [facility] 2022-09-24 2022-09-24 Office [facility] 1.2.840.114 [id number] Univers 14:30:00 15:05:48 Visit Florencia TORIBIO 350.1.13.10 ity of [place] 4..7.[address] [place] [id number] DIABETES CLINIC 2022-09-11 2022-09-12 Emergency X [facility] ERT [id number] Univers 21:35:00 04:09:00 LILIANA ity of [facility] 2022-09-11 2022-09-[address] [facility] [id number] Univers 21:35:00 04:09:00 Liliana FIELD 350.1.13.10 ity of [place] 4.2.7.2.686 [facility] [id number] [facility] 084 Branch 2022-09-02 2022-09-02 Telephone [facility] 1.2.790.181 [id number] Univers 00:00:00 00:00:00 Florencia MULTISPEC 350.1.13.10 [place]2.7.2.686 [place] CENTER [id number] [facility] [address] DI[facility]ES [facility] 2022-08-28 2022-08-28 Outpatient R ROXY [facility] [id number] Univers 11:00:00 11:35:50 FELICIA anguiano [facility] 2022-08-28 2022-08-28 Office [facility] 1.2.840.114 [id number] Univers 11:00:00 11:35:50 Visit Felicia FIELD 350.1.13.10 i ty of [facility] [place] 4.2.7.2.[place] [phone] Or dical NAL [address] [place] [address] 2022-07-31 2022-07-31 Telephone [facility] 1.2.840.114 [id number] Univers 00:00:00 00:00:00 Felicia FIELD 350.1.13.10 i ty of [place] 4[place]7.2.[place] [id number] Or lex[address] 2022-07-30 2022-07-30 Outpatient R ROXY [facility] [id number] Univers 14:20:00 14:50:17 FELICIA anguiano [facility] 2022-07-30 2022-07-30 Telemedici [facility] 1.2.840.114 [id number] Univers 14:20:00 14:50:17 ne Visit Felicia FIELD 350.1.13.10 [place] of [place] [id number] Or dical NAL [address] [place] [address] 2022-07-30 2022-07-30 Undergraduate Internship 2, Adc Lab [facility] 1.2.840.114 [id number] Univers 14:00:00 14:00:00 Visit Felicia Worthington 350.1.13.10 [place] of [place]2.[place] [id number] Or dical NAL 353 [facility] 2022-07-30 2022-07-30 [facility] 1.2.840.114 [id number] Univers 00:00:00 00:00:00 Felicia FIELD 350.1.13.10 i ty of [facility] [place] 4.2.7.2.[place] [id number] Or dical NAL 044 [facility] 2022-07-21 2022-07-21 [facility] 1.2.840.114 [id number] Univers 00:00:00 00:00:00 Mary FIELD 350.1.13.10 ity of [facility] [place] 4.2.7.2.[place] [id number] Or dical NAL 044 [facility] 2022-07-21 2022-07-21 Refill [facility] 1.2.840.114 [id number] Univers 00:00:00 00:00:00 Felicia FIELD 350.1.13.10 i ty [place] [id number] Or dical NAL [address] [place] [address] 2022-06-27 2022-06-27 Refill [facility] 1.2.840.114 [id number] Univers 00:00:00 00:00:00 Felicia FIELD 350.1.13.10 i ty [place] [id number] Or dical NAL 044 [facility] 2022-06-11 2022-06-11 [facility] [id number] Univers 15:20:00 15:20:00 FELICIA anguiano of [facility] 2022-05-27 2022-05-27 Undergraduate Internship 2, Adc Lab [facility] 1.2.840.114 [id number] Univers 09:30:00 09:45:00 Visit Felicia Worthington 350.1.13.10 ity of [facility] 4.2.7.2.[place] [phone] Me dical NAL 353 [facility] 2022-05-27 2022-05-27 [facility] [id number] Univers 09:30:00 09:30:00 FELICIA astudilloghulam [facility] 2022-05-26 2022-05-26 Outpatient R [facility] [id number] Univers 13:00:00 13:00:00 silvio [facility] 2022-05-12 2022-05-12 Outpatient R BRODIE [facility] [id number] [facility] 10:30:00 11:03:37 PETTY wildaghulam [facility] 2022-05-12 2022-05-12 Office [facility] [id number] [id number] [facility] 10:30:00 11:03:37 Visit Petty FIELD 350.1.13.10 i ty [place] [id number] Or dical NAL 188 [facility] 2022-05-07 2022-05-07 Refill [facility] 1.2.840.114 [id number] Univers 00:00:00 00:00:00 Felicia FIELD 350.1.13.10 i ty [place] [id number] Or dical NAL 044 [facility] 2022-04-11 2022-04-11 Telephone [facility] 1.2.840.114 [id number] Univers 00:00:00 00:00:00 Felicia FIELD 350.1.13.10 i ty [place] [id number] Or dical NAL 044 [facility] 2022-04-11 2022-04-11 Orders Doctor PERALES 1.2.840.114 [id number] Univers 00:00:00 00:00:00 Only Unassigned, ASHLI 350.1.13.10 ity of [place] [facility] 4.2.7.2.686 Candido as [id number] [address] 2022-03-13 2022-03-13 [facility] 1.2.840.114 [id number] Univers 00:00:00 00:00:00 Felicia FIELD 350.1.13.10 i ty of [place] [phone] Or dical NAL [address] [place] [address] 2022-03-11 2022-03-11 Telephone [facility] 1.2.840.114 [id number] Univers 00:00:00 00:00:00 Felicia FIELD 350.1.13.10 i ty of [place].2.[place] [phone] Or dic[address] 2022-03-11 2022-03-11 Orders Doctor DIAZ 1.2.840.114 [id number] Univers 00:00:00 00:00:00 Only Unassigned, ASHLI 350.1.13.10 ity of [place] [facility] 4.2.7.2.686 Cand[place] as [phone] [address] 2022-02-21 2022-02-21 Refill [facility] 1.2.840.114 [id number] Univers 00:00:00 00:00:00 Felicia FIELD 350.1.13.10 i ty of [place] [phone] [address] 2022-02-18 2022-02-18 Outpatient R ROXY [facility] [id number] Univers 15:00:00 15:18:55 FELICIA anguiano [facility] 2022-02-18 2022-02-18 [facility] 1.2.840.114 [id number] Univers 15:00:00 15:18:55 Visit Felicia FIELD 350.1.13.10 i ty of [place] [phone] Or dicct NAL [address] [place] [address] 2022-02-14 2022-02-14 Urgent Rob Posadas [facility] 1.2.840.114 [id number] Univers 11:00:00 11:20:00 Care Unknown, Attending HEALTH 350.1.13.10 ity of [place] 4.2.7.2.686 Candido as AARON?BLEA [phone] Or dicjen KNEY [address] MEDICAL OFFICE BUILDING 2022-02-14 2022-02-14 Outpatient R KATHARINA [facility] [id number] Univers 11:00:00 11:00:00 ROB ity [facility] 2022-02-12 2022-02-12 Undergraduate Internship 1, Adc Lab [facility] 1.2.840.114 [id number] Univers 11:30:00 11:45:00 Visit Mary Ramírez 350.1.13.1 0 ity of [place].2.[place] [phone] [facility] [address] 2022-02-12 2022-02-12 Outpatient R MARY RAMÍREZ [facility] [id number] Univers 11:30:00 11:30:00 MARY RAMÍREZ ity [facility] 2022-02-12 2022-02-12 Orders Doctor DIAZ 1.2.840.114 [id number] Univers 00:00:00 00:00:00 Only Unassigned, ASHLI 350.1.13.10 ity of [place] [facility] 4.2.7.2.686 Candido as [id number] [facility] [address] 2022-01-27 2022-01-27 Outpatient R MARY RAMÍREZ [facility] [id number] Univers 14:30:00 16:02:42 MARY RAMÍREZ ity [facility] 2022-01-27 2022-01-27 Office Mel [facility] 1.2.840.114 [id number] Univers 14:30:00 16:02:42 Visit Mary FIELD 350.1.13.10 ity of [place].2.7.2.686 [place] [facility] [phone] Or kaya [facility] [address] BUILDING 2022-01-01 2022-01-01 Outpatient R [facility] [id number] Univers 15:15:00 15:15:00 ity of [facility] 2021-12-30 2021-12-30 Telephone [facility] 1.2.840.114 [id number] Univers 00:00:00 00:00:00 Felicia FIELD 350.1.13.10 i ty of [place] [phone] [address] 2021-12-25 2021-12-25 Refill [facility] 1.2.840.114 [id number] Univers 00:00:00 00:00:00 Felicia RASHIDA 350.1.13.10 i ty of [place].2.7.2.[place] [phone] [address] 2021-12-23 2021-12-23 [facility] [id number] Univers 14:30:00 14:30:00 [facility] 2021-12-23 2021-12-23 [facility] [id number] Univers 14:30:00 14:30:00 [facility] 2021-12-23 2021-12-23 Outpatient R MARY RAMÍREZ [facility] [id number] Univers 11:30:00 12:01:10 MARY RAMÍREZ [facility] 2021-12-23 2021-12-23 Office Mel [facility] 1.2.840.114 [id number] Univers 11:30:00 12:01:10 Visit Mary FIELD 350.1.13.10 ity of [place].2.[place] [phone] [address] 2021-12-23 2021-12-23 Orders Doctor PERALES 1.2.840.114 [id number] Univers 00:00:00 00:00:00 Only Unassigned, ASHLI 350.1.13.10 ity of [place] [facility] 4.2.7.2.686 Candido as [id number] [address] 2021-12-13 2021-12-13 Telephone [facility] 1.2.840.114 [id number] Univers 00:00:00 00:00:00 Felicia FIELD 350.1.13.10 i ty of [facility] [place] 4.2.7.2.[place] [phone] [facility] 044 [facility] 2021-12-06 2021-12-06 Undergraduate Internship Marianna, Adc Lab Main [facility] 1.2.8 40.114 [id number] [facility] 17:15:00 17:30:00 Visit MelMary field 350.1.13.1 0 ity of [place].2.[place] [id number] [address] 2021-12-06 2021-12-06 Outpatient R MARY RAMÍREZ [facility] [id number] Univers 15:30:00 16:30:30 [facility] 2021-12-06 2021-12-06 [facility] 1.2.840.114 [id number] Univers 15:30:00 16:30:30 Visit Mary FIELD 350.1.13.10 ity of [facility] [place] 4.2.7.2.[place] [id number] [address] 2021-12-03 2021-12-03 Outpatient R MARY RAMÍREZ [facility] [id number] Univers 16:30:00 16:30:00 [facility] 2021-11-20 2021-11-20 Undergraduate Internship 2, Adc Lab [facility] 1.2.840.114 [id number] Univers 14:00:00 14:15:00 Visit Felicia Worthington 350.1.13.10 ity of [facility] [place] 4.2.7.2.[place] [phone] [address] 2021-11-20 2021-11-20 Out[facility] [id number] Univers 13:20:00 13:34:38 FELICIA anguiano [facility] 2021-11-20 2021-11-20 Office [facility] 1.2.840.114 [id number] Univers 13:20:00 13:34:38 Visit Felicia FIELD 350.1.13.10 i ty of [place] 4.2.7.2.686 [place] [phone] Or dical NAL [address] [place] [address] 2021-11-20 2021-11-20 Outpatient [facility] [id number] Univers 13:20:00 13:20:00 FELICIA anguiano [facility] 2021-11-13 2021-11-13 Refill [facility] 1.2.840.114 [id number] Univers 00:00:00 00:00:00 Felicia FIELD 350.1.13.10 i ty of [facility] [place] 4.2.7.2.686 [place] [id number] [address] 2021-11-08 2021-11-08 Out[facility] [id number] Univers 13:00:00 13:00:00 FELICIA anguiano [facility] 2021-11-08 2021-11-08 Outpatient R [facility] IESHA [id number] Univers 06:49:00 09:00:00 PETTY astudilloghulam [facility] 2021-11-08 2021-11-08 [facility] 1.2.840.114 [id number] Univers 06:49:00 09:00:00 Encounter Petty FIELD 350.1.13.10 ity of [place] 4.2.7.2.686 [place] SURGICAL [id number] [place] [address] [place] 2021-11-08 2021-11-08 Surgery [facility] 1.2.070.520 [id number] Univers 08:00:00 08:55:00 Petty FIELD 350.1.13.10 i ty of [place] 4.2.7.2.686 [place] SURGICAL [id number] [facility] [address] 2021-11-07 2021-11-07 Laboratory Only, Adc Test [facility] 1.2.840. 114 [id number] Univers 08:00:00 08:15:00 Only Petty Calloway 350.1.13.10 ity of [place] 4.2.7.2.686 [place] [id number] [facility] [address] 2021-11-07 2021-11-07 Outpatient R BRODIE [facility] [id number] Univers 08:00:00 08:00:00 PETTY ity of [facility] 2021-11-07 2021-11-07 Orders Doctor DIAZ 1.2.840.114 [id number] Univers 00:00:00 00:00:00 Only Unassigned, ASHLI 350.1.13.10 ity of [place] [facility] 4.2.7.2.686 Candido as [phone] [facility] [address] 2021-10-11 2021-10-11 Refill [facility] 1.2.840.114 [id number] Univers 00:00:00 00:00:00 Felicia FIELD 350.1.13.10 i ty of [place].2.[place] [phone] [facility] 044 [facility] 2021-09-26 2021-09-26 Orders Doctor DIAZ 1.2.840.114 [id number] Univers 00:00:00 00:00:00 Only Unassigned, ASHLI 350.1.13.10 ity of [place] [facility] 4.2.7.2.686 Cand[place] as [id number] [facility] [address] 2021-09-19 2021-09-19 Telephone [facility] 1.2.840.114 [id number] Univers 00:00:00 00:00:00 Felicia FIELD 350.1.13.10 i ty of [place].2.[place] [id number] [address] 2021-08-24 2021-08-24 Refill [facility] 1.2.840.114 [id number] Univers 00:00:00 00:00:00 Felicia FIELD 350.1.13.10 i ty of [place] [id number] Or dicct NAL [address] [place] [address] 2021-08-09 2021-08-09 Located within [facility] 1.2.840.114 [id number] Univers 14:18:02 23:59:00 Encounter Felicia FIELD 350.1.13.10 ity of [place]2.[place].2.[place] [id number] [address] 2021-08-09 2021-08-09 Outpatient R [facility] [id number] Univers 14:17:35 14:17:35 FELICIA ghulam [facility] 2021-08-09 2021-08-09 Located within [facility] 1.2.840.114 [id number] Univers 14:17:35 14:17:35 Encounter Felicia FIELD 350.1.13.10 ity [place] [address].2.7.2.686 [facility] [place] [phone] [address] 2021-08-09 2021-08-09 Outpatient R [facility] [id number] Univers 00:00:00 00:00:00 FELICIA silvio [facility] 2021-08-07 2021-08-07 Outpatient R [facility] [id number] Univers 14:40:00 15:24:25 FELICIA silvio [facility] 2021-08-07 2021-08-07 Office [facility] 1.2.840.114 [id number] Univers 14:40:00 15:24:25 Visit Felicia FIELD 350.1.13.10 i ty of [place].2.[place] [id number] [address] 2021-08-06 2021-08-06 Undergraduate Internship Marianna, Adc Lab Main [facility] 1.2.8 40.114 [id number] Univers 14:15:00 14:30:00 Visit Felicia Worthington.1.13.10 ity of [facility] [place] 4.2.7.2.[place] [phone] Or dical RENETTA 353 [facility] 2021-08-06 2021-08-06 Outpatient R ROXY [facility] [id number] Univers 14:15:00 14:15:00 FELICIA anguiano [facility] 2021-07-29 2021-07-29 Office [facility] 1.2.840.114 [id number] Univers 11:00:00 11:30:00 Visit Lisette FIELD 350.1.13.10 ity of [place].2.[place] [phone] Or lexal RENETTA 188 [facility] 2021-07-29 2021-07-29 Outpatient R BRODIE [facility] [id number] Univers 11:00:00 11:00:00 PETTY anguiano [facility] 2021-07-29 2021-07-29 [facility] [id number] Univers 11:00:00 11:00:00 LISETTE anguiano o f [facility] 2021-07-25 2021-07-25 Urgent TejasXin [facility] 1.2.840. 114 [id number] Univers 14:00:00 14:00:00 Care Unknown, Attending HEALTH 350.1.13.10 ity of [place] 4.2.7.2.686 [place] AARON?BLEA [phone] Or kaya BARROSO [address] [facility] OFFICE [facility] 2021-07-25 2021-07-25 Outpatient R KURTIS [facility] [id number] Univers 14:00:00 13:46:55 ANGELA anguiano [facility] 2021-07-25 2021-07-25 Refill [facility] 1.2.840.114 [id number] Univers 00:00:00 00:00:00 Felicia FIELD 350.1.13.10 i ty of [place] 4.2.7.2.686 [place] [phone] Or dical NAL [address] [place] [address] 2021-05-08 2021-05-08 Nurse Med, Medicare Wellness [facility] 1.2.840.114 [id number] Univers 16:00:00 16:04:38 Visit Felicia Worthington 350.1.13.10 ity of [facility] [place] 4.2.7.2.686 [place] PROF[place] [phone] Or dic[address] 2021-05-08 2021-05-08 [facility] [id number] Univers 14:40:00 16:04:23 FELICIA ghulam [facility] 2021-05-08 2021-05-08 Office [facility] 1.2.840.114 [id number] Univers 14:40:00 16:04:23 Visit Felicia FIELD 350.1.13.10 i ty of [place].2.[place] [phone] [address] 2021-05-08 2021-05-08 [facility] [id number] Univers 14:40:00 16:04:23 FELICIA ghulam [facility] 2021-04-23 2021-04-23 [facility] [id number] Univers 10:40:00 10:40:00 FELICIA ghulam [facility] 2021-04-23 2021-04-23 Telephone [facility] 1.2.840.114 [id number] Univers 00:00:00 00:00:00 Felicia FIELD 350.1.13.10 i ty of [place].2.[place] [phone] [address] 2021-04-17 2021-04-17 Telephone [facility] 1.2.840.114 [id number] Univers 00:00:00 00:00:00 Felicia FIELD 350.1.13.10 i ty of [facility] [place] 4.2.7.2.686 [place] [phone] Or dic[address] 2021-03-16 2021-03-16 Telephone [facility] 1.2.840.114 [id number] Univers 00:00:00 00:00:00 [facility] 350.1.13.10 it y of [place] 4.2.7.2.686 [place] [facility] [phone] [facility] PRIMARY & [address] SPECIALTY CARE 2021-03-13 2021-03-13 Outpatient R [facility] [id number] Univers 16:20:00 16:41:11 XIN ity o [facility] 2021-03-13 2021-03-13 Urgent Jaime Vickers [facility] 1.2.840. 114 [id number] Univers 16:20:00 16:41:[address] [facility] 350.1.13.10 ity of [place] 4.2.7.2.686 Candido as AARON?BLEA [phone] [address] MEDICAL OFFICE BUILDING 2021-03-13 2021-03-13 Outpatient R [facility] [id number] [facility] 16:20:00 16:41:11 XIN ity o [facility] 2021-03-12 2021-03-12 Refmichael [facility]PRES[facility] 1.2.840.114 [id number] Univers 00:00:00 00:00:00 Felicia FIELD 350.1.13.10 i ty of [place] 4[place]2.[place].2.[place] [id number] [place] [address] [address] [facility] 2021-03-12 2021-03-12 Inder [facility] 1.2.840.114 [id number] Univers 00:00:00 00:00:00 Dannie FIELD 350.1.13.10 i ty of [place] 4.2.7.2.[place] [phone] [place] [address] [address] BUILDING 2021-02-20 2021-02-20 Orders Doctor PERALES 1.2.840.114 [id number] Univers 00:00:00 00:00:00 Only Unassigned, ASHLI 350.1.13.10 ity [place] [facility] 4.2.7.2.686 Candido as [id number] [address] 2021-02-19 2021-02-19 Telephone [facility] 1.2.840.114 [id number] Univers 00:00:00 00:00:00 Felicia FIELD 350.1.13.10 i ty of [facility] [place] 4.2.7.2.[place] [phone] Or dical NAL 225 [facility] 2021-02-12 2021-02-12 Outpatient R [facility] [id number] Univers 13:20:00 13:20:00 FELICIA anguiano [facility] 2021-02-04 2021-02-04 Refill [facility] 1.2.840.114 [id number] Univers 00:00:00 00:00:00 Felicia FIELD 350.1.13.10 i ty of [place].2.[place] [phone] Or dical NAL 044 [facility] 2021-01-31 2021-01-31 Orders Doctor DIAZ 1.2.840.114 [id number] Univers 00:00:00 00:00:00 Only Unassigned, ASHLI 350.1.13.10 ity of [facility] 4.2.7.2.686 Cand[place] as [id number] [address] 2021-01-28 2021-01-28 [facility] [id number] Univers 11:00:00 10:59:34 PETTY anguiano [facility] 2021-01-28 2021-01-28 [facility] [id number] Univers 11:00:00 10:59:34 PETTY anguiano [facility] 2021-01-28 2021-01-28 Office [facility] 1.2.702.570 [id number] Univers 10:27:33 10:59:34 Visit Petty FIELD 350.1.13.10 i ty of [place] 4.2.[place].2.[place] [id number] Or dical NAL 188 [facility] 2021-01-28 2021-01-28 Telephone [facility] 1.2.840.114 [id number] Univers 00:00:00 00:00:00 Felicia FIELD 350.1.13.10 i ty [facility] 4.2.7.2.[place] [phone] Or dical [facility] 044 [facility] 2021-01-16 2021-01-16 Outpatient R JOAQUIN [facility] [id number] Univers 15:30:00 15:30:00 Man [facility] 2021-01-16 2021-01-16 Outpatient R JOAQUIN [facility] [id number] Univers 15:30:00 15:21:07 Man [facility] 2021-01-16 2021-01-16 Imm/Inj Nurse, Adc Pob Immunization [facility] 1.2.840.114 [id number] Univers 15:20:56 15:21:07 Visit [place] 350.1.13 .10 [facility] [place] [phone] Or dical [facility] 421 [facility] 2021-01-09 2021-01-09 Outpatient R ROXY [facility] [id number] Univers 15:00:00 16:59:18 FELICIA [facility] 2021-01-09 2021-01-09 Telemedici [facility] 1.2.840.114 [id number] Univers 11:50:17 16:59:18 ne Visit Felicia Field 350.1.13.10 [facility] [place].2.7.2.[place] [phone] Or dical nal [address] [place] [address] 2021-01-09 2021-01-09 Outpatient R ROXY [facility] [id number] Univers 15:00:00 15:00:00 FELICIA ghulam [facility] 2021-01-03 2021-01-03 Telephone [facility] 1.2.840.114 [id number] Univers 00:00:00 00:00:00 Felicia Field 350.1.13.10 i ty of [place]2.7.2.686 [place] [phone] Or dical nal 044 [facility] 2020-12-31 2020-12-31 Office [facility] 1.2.998.370 [id number] Univers 11:00:55 11:46:21 Visit Petty Field 350.1.13.10 i ty of [place] 4.2.7.2.686 [place] [id number] Or kaya lawson 188 [facility] 2020-12-31 2020-12-31 Outpatient R [facility] [id number] Univers 11:00:00 11:46:21 PETTY ghulam [facility] 2020-12-31 2020-12-31 Outpatient R [facility] [id number] Univers 11:00:00 11:00:00 PETTY [facility] 2020-12-31 2020-12-31 Telephone [facility] 1.2.254.528 [id number] Univers 00:00:00 00:00:00 [facility] 350.1.13.10 it y of [place] 4.2.7.2.686 Candido as Aaron?Blea [phone] Or kaya barroso [address] Medical Office [facility] 2020-12-28 2020-12-28 Telephone [facility] 1.2.840.114 [id number] Univers 00:00:00 00:00:00 Felicia Field 350.1.13.10 i ty of [place].2.[place] [phone] Or dical nal 044 [facility] 2020-12-24 2020-12-24 Transition Katelynn Saunders 1.2.840.114 [id number] Univers 00:00:00 00:00:00 of Care Tamiko Gama 350.1.13.10 i ty of [place]2.7.2.686 [place] [phone] [address] 2020-12-22 2020-12-22 Refill [facility] 1.2.840.114 [id number] Univers 00:00:00 00:00:00 Felicia Field 350.1.13.10 i ty of [place] 4[place]2.7.2.[place] [phone] Or dical nal 044 [facility] 2020-12-18 2020-12-21 [facility] 1.2.840.114 [id number] Univers 07:40:00 14:17:00 Encounter Petty [place] 350.1.13.10 ity of [place] 4.2.7.2.686 [place] [id number] [facility] [address] 2020-12-18 2020-12-21 Outpatient R [facility] IESHA [id number] Univers 07:40:00 14:17:00 PETTY itghulam [facility] 2020-12-18 2020-12-18 Orders Doctor DIAZ 1.2.840.114 [id number] Univers 00:00:00 00:00:00 Only Unassigned, ASHLI 350.1.13.10 ity of [place] [facility] 4.2.7.2.686 Candido as [id number] [facility] [address] 2020-12-17 2020-12-17 [facility] [id number] Univers 13:45:00 13:45:00 LB itghulam [facility] 2020-12-17 2020-12-17 Laboratory Only, Adc Test [facility] 1.2.840. 114 [id number] Univers 08:10:40 08:25:40 Only bL [place] 350.1.13.10 ity of [place].2.[place] [id number] [facility] [address] 2020-12-17 2020-12-17 Undergraduate Internship Marianna, Adc Lab Main [facility] 1.2.8 40.114 [id number] Univers 08:10:14 08:25:14 Visit CallowayPetty kirkland 350.1.13.10 ity of [place] 4.2.7.2.[place] [phone] Or dical nal 353 [facility] 2020-12-15 2020-12-15 Outpatient R [facility] [id number] Univers 10:00:00 10:00:00 ity [facility] 2020-12-15 2020-12-15 [facility] [id number] Univers 10:00:00 10:00:00 PETTY anguiano [facility] 2020-12-14 2020-12-14 Telephone DIAZ [place] 1.2.840.114 [id number] Univers 00:00:00 00:00:00 Petty [place]NELI[place] 350.1.13.10 it y of [facility] 4.2.7.2.686 Cand[place] as [phone] [facility] [address] 2020-12-13 2020-12-13 [facility] 1.2.840.114 [id number] Univers 13:52:43 23:59:00 Encounter Petty [place] 350.1.13.10 ity of [place] 4[place]2.7.2.686 [place] [phone] [facility] [address] 2020-12-13 2020-12-13 [facility] [id number] Univers 14:15:00 14:15:00 PETTY anguiano [facility] 2020-12-13 2020-12-13 Undergraduate Internship Marianna, Stacy Lab Main [facility] 1.2.8 40.114 [id number] Univers 13:56:47 14:11:47 Visit Petty [place] 350.1.13.10 [place] [phone] [facility] [address] [facility] 2020-12-13 2020-12-13 [facility] 1.2.840.114 [id number] Univers 13:51:46 13:51:46 Encounter Petty [place] 350.1.13.10 [place] [phone] [facility] [address] 2020-12-13 2020-12-13 [facility] [id number] Univers 00:00:00 00:00:00 PETTY anguiano [facility] 2020-12-07 2020-12-07 Prep For [facility] 1.2.840.114 [id number] Univers 00:00:00 00:00:00 Surgery Marleen Wilbert [place] 350.1.13.10 [place] [phone] [facility] 204 [facility] 2020-12-07 2020-12-07 Orders Doctor DIAZ 1.2.840.114 [id number] Univers 00:00:00 00:00:00 Only Unassigned, ASHLI 350.1.13.10 ity of [facility] 4.2.7.2.686 [place] [phone] [facility] [address] 2020-12-04 2020-12-04 Outpatient R [facility] [id number] Univers 16:15:00 16:56:25 PETTY silvio [facility] 2020-12-04 2020-12-04 Office [facility] 1.2.247.277 [id number] Univers 15:46:37 16:56:25 Visit Petty Field 350.1.13.10 [place] [phone] [facility] 188 [facility] 2020-12-04 2020-12-04 Outpatient R [facility] [id number] Univers 16:15:00 16:15:00 PETTY anguiano [facility] 2020-12-01 2020-12-01 Orders Doctor PERALES 1.2.840.114 [id number] Univers 00:00:00 00:00:00 Only Unassigned, ASHLI 350.1.13.10 ity of [facility] 4.2.7.2.686 [place] [phone] [facility] [address] 2020-11-16 2020-11-16 Surgery [facility] 1.2.166.204 [id number] Univers 12:36:00 13:31:00 Petty [place] 350.1.13.10 [place] [phone] [facility] [address] 2020-11-16 2020-11-16 [facility] 1.2.840.114 [id number] Univers 08:23:00 12:24:00 Encounter Petty [place] 350.1.13.10 [place] [phone] [facility] [address] 2020-11-16 2020-11-16 Outpatient R BRODIE [facility] IESHA [id number] Univers 08:23:00 12:24:00 PETTY anguiano [facility] 2020-11-15 2020-11-15 Outpatient R BRODIE [facility] [id number] Univers 08:45:00 08:45:00 PETTY anguiano [facility] 2020-11-15 2020-11-15 Outpatient R BRODIE [facility] [id number] Univers 08:45:00 08:45:00 [facility]ulam [facility] [facility] 2020-11-15 2020-11-15 Laboratory Only, Adc Test [facility] 1.2.840. 114 [id number] Univers 08:19:05 08:34:05 Only Petty Calloway 350.1.13.10 ity [facility] [place] [phone] [facility] [address] 2020-11-15 2020-11-15 Orders Doctor DIAZ 1.2.840.114 [id number] Univers 00:00:00 00:00:00 Only Unassigned, ASHLI 350.1.13.10 ity of [place] [facility] 4.2.7.2.686 [place] [phone] [facility] [address] 2020-11-13 2020-11-13 Case [facility] 1.2.840.114 [id number] Univers 00:00:00 00:00:00 Management Marleen Field 350.1.13.10 it[place] [phone] Or dical [facility] [address] [facility] 2020-11-13 2020-11-13 Telephone Brodie [facility] 1.2.840.114 [id number] Univers 00:00:00 00:00:00 Petty Field 350.1.13.10 i [place] [phone] Or kaya [facility] 188 [facility] 2020-09-28 2020-09-28 Prep For [facility] 1.2.840.114 [id number] Univers 00:00:00 00:00:00 Surgery Marleen Field 350.1.13.10 [place] [phone] Or [facility] 204 [facility] 2020-09-26 2020-09-26 Office [facility] 1.2.840.114 [id number] Univers 15:13:12 16:12:10 Visit Alex Rashida 350.1.13.10 i ty [place] [phone] Or [facility] 220 [facility] 2020-09-26 2020-09-26 Outpatient R CHALINO [facility] [id number] Univers 15:00:00 16:12:10 [facility] 2020-09-26 2020-09-26 Outpatient R CHALINO [facility] [id number] Univers 15:00:00 15:00:00 [facility] 2020-09-26 2020-09-26 [facility] 1.2.840.114 [id number] Univers 00:00:00 00:00:00 Petty Rashida 350.1.13.10 i [place] [phone] Or [facility] 204 [facility] 2020-09-24 2020-09-24 Outpatient R ROXY [facility] 1033 [id number] Univers 11:15:00 11:15:00 FELICIA ghulam [facility] 2020-09-24 2020-09-24 Outpatient R ROXY [facility] 1033 [id number] Univers 11:15:00 11:15:00 PETER [facility] 2020-09-24 2020-09-24 Undergraduate Internship Marianna, Adc Lab Main [facility] 1.2.8 40.114 [id number] Univers 09:56:52 10:11:52 Visit Felicia Worthington 350.1.13.10 ity of [place] [phone] Or dical nal 353 [facility] 2020-09-20 2020-09-20 [facility] 1.2.840.114 [id number] Univers 00:00:00 00:00:00 Petty Rashida 350.1.13.10 i ty [place].2.[place] [phone] Or dical nal 188 [facility] 2020-09-18 2020-09-18 Telephone [facility] 1.2.840.114 [id number] Univers 00:00:00 00:00:00 Felicia Field 350.1.13.10 i ty of [place] [phone] Or dical nal 044 [facility] 2020-09-15 2020-09-15 Outpatient GRACIELA HaddadWU SURG [id number] [facility] 04:53:00 04:53:[address] 2020-09-12 2020-09-12 Outpatient R [facility] [id number] Univers 14:00:00 14:00:00 XIN wagner [facility] 2020-09-12 2020-09-12 [facility] [id number] Univers 14:00:00 14:00:00 XIN wagner [facility] 2020-09-11 2020-09-11 [facility] [id number] Univers 14:40:00 14:40:00 FELICIA anguiano [facility] 2020-08-23 2020-08-23 Telemedici [facility] 1.2.840.114 [id number] 08:26:49 10:17:50 ne Visit Felicia Field 350.1.13.10 [place] 4.2.7.2.[address] Professio [phone] 2020-08-23 2020-08-23 Telemedici [facility] 1.2.840.114 [id number] Univers 08:26:49 10:17:50 ne Visit Felicia Field 350.1.13.10 ity of [place].2.[place] [phone] Or dical [address] 2020-08-23 2020-08-23 [facility] 1033 [id number] Univers 08:00:00 10:17:50 FELICIA astudilloghulam [facility] 2020-08-23 2020-08-23 [facility] 1033 [id number] Univers 08:00:00 08:00:00 FELICIA anguiano [facility] 2020-08-20 2020-08-20 Anesthesia Marleen Gutierrez 1.2.840.114 [id number] Univers 07:13:57 07:13:57 Event Percy Cornelius 350.1.13.10 it y of [facility] 4.2.7.2.686 [place] as [phone] [facility] [address] [place] 2020-08-17 2020-08-17 Hospital Mo 1.2.840.8 [id number] Univers 07:28:00 08:48:00 Encounter Diaz 09948.1.1 it y of [place] 3.104.2.7 [place] .3.672946 Medica l .[address] [place] 2020-08-17 2020-08-17 Outpatient [facility] IESHA [id number] Univers 07:28:00 08:48:00 DIAZ anguiano [facility] 2020-08-17 2020-08-17 Telephone Brodie [facility] 1.2.840.114 [id number] 00:00:00 00:00:00 Petty Rashida 350.1.13.10 [place] 4.2.7.2.[address] Professio [phone] 2020-08-17 2020-08-17 Telephone Mo 1.2.840.6 [id number] Univers 00:00:00 00:00:00 Diaz 24656.1.1 ity of [place] 3.104.2.7 [place] .3.903400 Medica l .8 [place] 2020-08-17 2020-08-17 [facility] 1.2.840.114 84 [id number] Univers 00:00:00 00:00:00 Petty [place] 350.1.13.10 i ty [place].2.[place] [phone] Or dical nal 188 [facility] 2020-08-17 2020-08-17 Orders Doctor 1.2.840.0 [id number] Univers 00:00:00 00:00:00 Only Unassigned, 92301.1.1 ity of [place] 3.104.2.7 [place] .3.713934 Medica l .8 [place] 2020-08-16 2020-08-16 [facility] [id number] Univers 15:20:00 15:55:00 FELICIA itghulam of [facility] 2020-08-16 2020-08-16 Telemedici Roxy, 1.2.840.5 [id number] Univers 10:14:35 15:55:00 ne Visit Felicia 78448.1.1 ity of 3.104.2.7 [place] .3.918897 Medica l .[address] [place] [address] 2020-08-16 2020-08-16 [facility] 1033 [id number] Univers 15:20:00 15:20:00 FELICIA itghulam of [facility] 2020-08-16 2020-08-16 Telephone Roxy, 1.2.840.9 [id number] Univers 00:00:00 00:00:00 Felicia 14534.1.1 ity of 3.104.2.7 [place] .3.953916 Medica l .8 [place] 2020-07-27 2020-07-27 [facility] 1032 [id number] Univers 00:00:00 00:00:00 FELICIA anguiano [facility] 2020-07-27 2020-07-27 Outpatient R ROXY [facility] 1032 [id number] Univers 00:00:00 00:00:00 FELICIA anguiano [facility] 2020-07-26 2020-07-26 Outpatient R BRODIE [facility] [id number] Univers 08:15:00 08:15:00 PETTY anguiano [facility] 2020-07-26 2020-07-26 Outpatient R [facility] [id number] Univers 08:15:00 08:15:00 PETTY anguiano [facility] 2020-07-26 2020-07-26 Orders Doctor 1.2.840.8 [id number] Univers 00:00:00 00:00:00 Only Unassigned, 62791.1.1 ity of [place] 3.104.2.7 [place] .3.709877 Medica l .8 [place] 2020-07-19 2020-07-19 Telemedici Edemevesna, 1.2.840.2 [id number] Univers 09:39:15 09:39:51 ne Visit Felicia 57179.1.1 ity of 3.104.2.7 [place] .3.277263 Medica l .8 [place] 2020-07-19 2020-07-19 [facility] [id number] Univers 08:20:00 09:39:51 FELICIA silvio [facility] 2020-07-19 2020-07-19 [facility] 1032 [id number] Univers 08:20:00 08:20:00 FELICIA anguiano [facility] 2020-07-19 2020-07-19 Telephone [place], 1.2.840.3 [id number] Univers 00:00:00 00:00:00 Felicia 73764.1.1 ity of 3.104.2.7 [place] .3.341002 Medica l .8 [place] 2020-07-19 2020-07-19 Travel 1.2.840.1 1.2.673.349 [id number] Univers 00:00:00 00:00:00 08906.1.1 350.1.13.10 ity of 3.104.2.7 4[place].3.698 [place] .3.212214 084.8 Medica l .8 [place] 2020-07-15 2020-07-15 Refill [place], 1.2.840.5 [id number] Univers 00:00:00 00:00:00 Peter 42973.1.1 ity of 3.104.2.7 [place] .3.357264 Medica l .8 [place] 2020-07-11 2020-07-11 Refill Belcher, 1.2.840.3 [id number] Univers 00:00:00 00:00:00 Wentong 01355.1.1 ity of 3.104.2.7 [place] .3.190541 Medica l .8 [place] 2020-07-03 2020-07-03 Prep For Gramm, 1.2.840.1 [id number] Univers 00:00:00 00:00:00 Surgery Marleen A 00632.1.1 ity of 3.104.2.7 [place] .3.860180 Medica l .8 [place] 2020-07-02 2020-07-02 Telephone Calloway, 1.2.840.5 [id number] Univers 00:00:00 00:00:00 Petty 97135.1.1 ity of 3.104.2.7 [place] .3.608973 Medica l .8 [place] 2020-06-12 2020-06-12 Imm/Inj Jl Shea 1.2.840.1 [id number] Univers 15:40:22 15:41:15 Visit Nurse, Stacy Poneftaly Immunization 27776.1.1 ity of 3.104.2.7 [place] .3.597019 Medica l .8 [place] 2020-06-12 2020-06-12 Outpatient R TOMASZ [facility] [id number] Univers 15:40:00 15:41:15 JL ity of [place] [facility] 2020-06-12 2020-06-12 Outpatient Anaid SHEA [facility] [id number] Univers 15:40:00 15:40:00 JL itghulam [facility] 2020-06-05 2020-06-05 Office Brodie, 1.2.840.7 [id number] Univers 13:24:01 14:24:46 Visit Petty 10745.1.1 ity of 3.104.2.7 [place] .3.627864 Medica l .8 [place] 2020-06-05 2020-06-05 Outpatient Anaid [facility] [id number] Univers 13:30:00 13:30:00 PETTY anguiano [facility] 2020-06-05 2020-06-05 Telephone Belcher, 1.2.840.2 [id number] Univers 00:00:00 00:00:00 Wentong 91675.1.1 ity of 3.104.2.7 [place] .3.605773 Medica l .8 [place] 2020-06-05 2020-06-05 Orders Doctor 1.2.840.2 [id number] Univers 00:00:00 00:00:00 Only Unassigned, 50257.1.1 ity of [place] 3.104.2.7 [place] .3.459350 Medica l .8 [place] 2020-06-05 2020-06-05 Travel 1.2.840.1 1.2.304.785 [id number] [id number] Univers 00:00:00 00:00:00 13191.1.1 350.1.13.10 ity of 3.104.2.7 4.[place].7.3.698 [place] .3.688513 084.8 Medica l .8 [place] 2020-05-22 2020-05-22 Outpatient Anaid [facility] [id number] Univers 14:10:00 16:37:05 JL silvio [facility] 2020-05-22 2020-05-22 Outpatient Anaid [facility] [id number] Univers 14:10:00 14:10:00 JL itghulam [facility] 2020-05-14 2020-05-14 [facility] 1.2.840.114 [id number] Univers 00:00:00 00:00:00 Felicia Field 350.1.13.10 i ty of [place] [phone] Or dical nal 044 [facility] 2020-02-07 2020-02-07 [facility]ill [facility] 1.2.840.114 [id number] Univers 00:00:00 00:00:00 Felicia Field 350.1.13.10 i ty of [place] 4[place].2.[place] [phone] Or dical nal 044 [facility] 2020-02-06 2020-02-06 [facility] 1.2.840.114 [id number] Univers 00:00:00 00:00:00 Felicia Field 350.1.13.10 i ty of [place] 4[place]2.[place] [phone] Or dical nal 044 [facility] 2020-01-25 2020-01-25 Telephone [facility] 1.2.623.216 [id number] Univers 00:00:00 00:00:00 Alex Field 350.1.13.10 i ty [place]2.[place] [phone] Or dical nal 220 [facility] 2020-01-12 2020-01-12 Undergraduate Internship 2, Adc Lab [facility] 1.2.840.114 [id number] Univers 11:09:03 11:24:03 Visit Felicia Worthington 350.1.13.10 ity of [place] 4[place].2.[place] [phone] [facility] 353 [facility] 2020-01-12 2020-01-12 Outpatient R ROXY [facility] [id number] Univers 11:00:00 11:00:00 FELICIA anguiano [facility] 2019-12-26 2019-12-26 Telephone [facility] 1.2.840.114 [id number] Univers 00:00:00 00:00:00 Felicia Field 350.1.13.10 i ty [place] 4[place].2.[place] [phone] [address] 2019-12-21 2019-12-21 Outpatient R CHALINO, [facility] [id number] Univers 13:30:00 13:30:00 ALEX anguiano [facility] 2019-12-20 2019-12-20 Tele[facility] 1.2.840.114 [id number] Univers 00:00:00 00:00:00 Felicia Field 350.1.13.10 i ty [place] 4[place]7.2.[place] [phone] [address] 2019-12-20 2019-12-20 [facility]phone [facility] 1.2.365.370 [id number] Univers 00:00:00 00:00:00 Lupis Atkins [facility] 350.1.13.10 i ty of [place] 4.2.7.2.686 [place] as Professio [phone] [address] One 2019-12-15 2019-12-15 Telephone [facility] 1.2.840.114 [id number] Univers 00:00:00 00:00:00 Felicia Field 350.1.13.10 i ty [place]2.[place] [phone] [facility] 044 [facility] 2019-12-14 2019-12-14 Undergraduate Internship 2, Adc Lab [facility] 1.2.840.114 [id number] Univers 13:28:29 13:43:29 Visit Felicia Worthington 350.1.13.10 ity of [place]7.2.[place] [phone] [facility] 353 [facility] 2019-12-14 2019-12-14 [facility] [id number] Univers 13:30:00 13:30:00 FELICIA anguiano [facility] 2019-12-13 2019-12-13 Telephone [facility] 1.2.840.114 [id number] Univers 00:00:00 00:00:00 Felicia Field 350.1.13.10 i ty of [place] 4[place].2.[place] [phone] Or dic[address] 2019-11-14 2019-11-14 [facility] [id number] Univers 14:20:00 14:20:00 FELICIA itghulam [facility] 2019-11-14 2019-11-14 Telemedici [facility] 1.2.840.114 [id number] Univers 08:24:40 08:39:40 ne Visit Felicia Field 350.1.13.10 ity [place] 4[place].2.[place] [phone] Or dic[address] 2019-11-03 2019-11-03 Telephone [facility] 1.2.053.550 [id number] Univers 00:00:00 00:00:00 Alex Field 350.1.13.10 i ty [place] 4.2.7.2.[place] [phone] Or dical [facility] 220 [facility] 2019-11-03 2019-11-03 Refill [facility] 1.2.840.114 [id number] Univers 00:00:00 00:00:00 Felicia Field 350.1.13.10 i ty [place] 4[place]2.7.2.[place] [phone] Or dical nal 044 [facility] 2019-11-03 2019-11-03 Refill [facility] 1.2.840.114 [id number] Univers 00:00:00 00:00:00 Felicia Field 350.1.13.10 i ty [place] 4[place]7.2.[place] [phone] Or dicct nal 044 [facility] 2019-10-29 2019-10-29 [facility] 1.2.840.114 [id number] Univers 00:00:00 00:00:00 Felicia Field 350.1.13.10 i ty of [place] 4[place].2.[place] [phone] Or dical nal 044 [facility] 2019-10-28 2019-10-28 Refill [facility] 1.2.840.114 [id number] Univers 00:00:00 00:00:00 Topherong [place] 350.1.13.10 i ty of [place] 4.2.7.2.[place] [phone] Or dical nal 220 [facility] 2019-10-24 2019-10-24 Refmichael [facility] 1.2.840.114 [id number] Univers 00:00:00 00:00:00 Topherong [place] 350.1.13.10 i ty [place] 4[place]2.[place].2.[place] [phone] Or dicct nal 220 [facility] 2019-10-14 2019-10-14 Refmichael [facility] 1.2.840.114 [id number] Univers 00:00:00 00:00:00 Alex [place] 350.1.13.10 i ty of [place] 4.2.7.2.[place] [phone] Or [facility] 220 [facility] 2019-09-16 2019-09-16 Refill [facility] 1.2.840.114 [id number] Univers 00:00:00 00:00:00 Felicia Field 350.1.13.10 i ty [place] 4[place].2.[place] [phone] Or dical nal 044 [facility] 2019-08-18 2019-08-18 Outpatient R BRODIE [facility] [id number] Univers 13:00:00 13:00:00 PETTY anguiano [facility] 2019-08-17 2019-08-17 Outpatient R CHALINO [facility] [id number] Univers 10:30:00 10:30:00 ALEX anguiano [facility] 2019-08-17 2019-08-17 Telemedici [facility] 1.2.840.114 [id number] Univers 08:15:04 08:45:04 ne Visit Alex Rashida 350.1.13.10 ity of [place] 4[place]2.7.2.[place] [phone] Or dical nal 220 [facility] 2019-08-15 2019-08-15 Refill [facility] 1.2.840.114 [id number] Univers 00:00:00 00:00:00 Alex Field 350.1.13.10 i ty [place] 4[place]7.2.[place] [phone] Or dical nal 220 [facility] 2019-05-17 2019-05-25 Office [facility] 1.2.337.426 [id number] [facility] 16:04:39 11:49:14 Visit Petty Field 350.1.13.10 i ty of [place] 4[place]2.7.2.[place] [phone] Or dicct nal 377 [facility] 2019-05-17 2019-05-17 Outpatient [facility] [id number] Univers 16:15:00 17:07:43 PETTY anguiano of [facility] 2019-05-16 2019-05-16 Telephone [facility] 1.2.840.114 [id number] Univers 00:00:00 00:00:00 Felicia Field 350.1.13.10 i ty [place] 4[place]7.2.[place] [phone] Or dical nal 044 [facility] 2019-05-06 2019-05-06 Hospital [facility] 1.2.840.114 [id number] Univers 06:33:00 09:54:00 Encounter Petty Field 350.1.13.10 ity of [place].2.[place] [phone] [facility] [address] [place] 2019-05-06 2019-05-06 Orders Doctor DIAZ 1.2.840.114 [id number] Univers 00:00:00 00:00:00 Only Unassigned, ASHLI 350.1.13.10 ity of [place] [facility] 4.2.7.2.686 Cand[place] as [phone] [facility] evert 00[address] 2019-05-04 2019-05-04 Telephone [facility] 1.2.421.139 [id number] Univers 00:00:00 00:00:00 Wentong Rashida 350.1.13.10 i ty of [place] 4[place]7.2.[place] [phone] Or dical nal 220 [facility] 2019-03-11 2019-03-11 Outpatient R ROXY [facility] 1025 [id number] Univers 14:23:07 23:59:00 FELICIA ity of [facility] 2019-02-28 2019-02-28 Pre Visit Pcp, [facility] 1.2.225.917 [id number] Univers 00:00:00 00:00:00 Outreach Patient Rashida 350.1.13.10 ity of Does Not [place] 4.2.7.2.686 [place] as Have A Professio [phone] Or dical nal 044 [facility] Results Test Description Test Time Test Comments Results Result Comments Source BASIC METABOLIC PANEL (NA, K, CL, CO2, GLUCOSE, BUN, 2022-09 00:07:38 CREATININE, CA) Test Item Value Reference Range Interpretation Comme nts NA (test code = 8672387319) 139 mmol/L 135-145 K (test code = 1808451550) 5.8 mmol/L 3.5-5.0 H CL (test code = 3259979846) 104 mmol/L 98-108 CO2 TOTAL (test code = 8138654856) 20 mmol/L 23-31 L AGAP (test code = 4538342932) 15 2-16 BUN (test code = 5906996241) 63 mg/dL 7-23 H GLUCOSE (test code = 2774665922) 145 mg/dL 70-110 H CREATININE (test code = 1.94 mg/dL 0.50-1.04 H 7151771712) CALCIUM (test code = 5282158685) 9.1 mg/dL 8.6-10.6 eGFR (test code = 8298621560) 25.0 mL/min/1.73m2 CONCHITA (test code = CONCHITA) [...] tests). Lab Interpretation (test code = Abnormal 02327-5) [facility] WITH [id number] 19:10:08 Test Item Value Reference Range Interpretation Comments WBC (test code = 9.00 See_Comment [Automated 5008-2) message] The sy stem which generated this result transmitted reference range : 4.30 - 11.10 10*3/?L. The reference range was not used to interpret this result as normal/abnormal . RBC (test code = 3.38 See_Comment L [Automated 709-8) message] The sy stem which generated this [...] RDW-SD (test code = 49.1 fL 39.0-49.9 78397-4) RDW-CV (test code = 14.9 % 12.0-15.5 788-0) PLT (test code = 185 See_Comment [Automated 777-3) message] The sy stem which generated this result transmitted reference range : 166 - 358 10*3/ ?L. The reference r mary was not used to interpret this result as normal/abnormal . MPV (test code = 10.8 fL 9.5-12.9 28365-7) NRBC/100 WBC (test 0.0 See_Comment [Automat ed code = 5564430098) message] The system which generated this result transmitted reference range : 0.0 - 10.0 /100 WBCs. The refer ence range was not u sed to interpret th is result as normal/abnormal . NRBC x10^3 (test code See_Comment [Auto mated = 9499895489) message] The s ystem which generated this result transmitted reference range : 10*3/?L. The reference range was not used to interpret this result as normal/abnormal . GRAN MAT (NEUT) % 64.3 % (test code = 770-8) IMM GRAN % (test code 0.40 % = 5520329568) LYMPH % (test code = 25.9 % 736-9) MONO % (test code = 4.7 % 5905-5) EOS % (test code = 4.0 % 713-8) BASO % (test code = 0.7 % 706-2) GRAN MAT x10^3(ANC) 5.79 10*3/uL 1.88-7.09 (test code = 9426652426) IMM GRAN x10^3 (test 0.04 10*3/uL 0.00-0.06 code = 6267856721) LYMPH x10^3 (test code 2.33 10*3/uL 1.32-3.29 = 731-0) MONO x10^3 (test code 0.42 10*3/uL 0.33-0.92 = 742-7) EOS x10^3 (test code = 0.36 10*3/uL 0.03-0.39 711-2) BASO x10^3 (test code 0.06 10*3/uL 0.01-0.07 = 704-7) Lab Interpretation Abnormal (test code = 56198-1) [facility] [id number] 17:42:00 Test Item Value Reference Range Interpretation [...] U APPEAR (test code = clear 3267) [facility] [id number] 10:31:00 Test Item Value Reference Range Interpretation Comments GLUCOSE BEDSIDE TESTING (test code 269 MG/DL 60-99 H = GLUBED) GLUCOSE BEDSIDE [id number] 08:06:00 Test Item Value Reference Range Interpretation Comments GLUCOSE BEDSIDE TESTING (test code 328 MG/DL 60-99 HH = GLUBED) BASIC METABOLIC [id number] 06:25:00 Test Item Value Reference Range Interpretation [...] 9.3 MG/DL 8.4-10.2 N CA) Comments to Drapery Inspector: RN TO COLLECTLIPID PROFILE (CORONARY RISK)2020-09-15 06:25:00 [...] VERY HIGH.........>/ = 190 mg/dL Comments to Drapery Inspector: RN TO [id number] 06:25:00 Test Item Value Reference Range Interpretation Comments MAGNESIUM (test code = MAG) 1.5 MG/DL 1.6-2.3 L Comments to Drapery Inspector: RN TO COLLECTPROTHROMBIN [id number] 06:22:00 Test Item Value Reference Range Interpretation [...] myocar dial infarction. 2.0 - 3.0 3. Micropaleontologist al prosthesis hear t valves, recurre nt systemic emboli sm. 3.0 - 4.5 Comments to Drapery Inspector: RN TO COLLECTPTT [id number] 06:22:00 Test Item Value Reference Range Interpretation Comments PTT ACTIVATED (test code = APTT) 34.4 SECONDS 25.1-36.5 N Comments to Drapery Inspector: RN TO COLLECTLIPID PROFILE (CORONARY RISK)2020-09-15 06:21:00 [...] MG/DL 0-99 code = LDL) Comments to Drapery Inspector: RN TO [id number] 06:21:00 Test Item Value Reference Range Interpretation Comments MAGNESIUM (test code = MAG) 1.5 MG/DL 1.6-2.3 L Comments to Drapery Inspector: RN TO COLLECTBASIC METABOLIC [id number] 06:21:00 Test Item Value Reference Range Interpretation [...] 9.3 MG/DL 8.4-10.2 N CA) Comments to Drapery Inspector: RN TO COLLECTCBC W/AUTO [id number] 06:05:00 Test Item Value Reference Range Interpretation [...] 0.00 K/mm3 0.0-0.1 N NRBC#) Comments to Drapery Inspector: RN TO COLLECT History and Physical Notes Date/Time Note Provider Source 2022-10-29 11:11:49-00:00 Formatting of this note migh t be different from the original. [facility] Future Labs Stage 3b chronic kidney disease (CKD) - RENAL PANEL; Future - INTACT PTH CALCIUM GROUP; Future - PROTEIN QUANT U/24H; Future - BASIC METABOLIC PANEL (NA, K, CL, CO2, GLUCOSE, BUN, CREATININE, CA); Future Notes Date/Time Note Provider Source 2022-10-23 Formatting of this note is different from the or iginal. [facility] 13:15:00-00:00 Patient presented with speci men for drop-off and was identified by . Collection information/ total volume were documented accordingly. The following specimens were sent to [facility] laboratories per lab order on 10/23/2022 : 24 hour urine 1 Random urine Stool Swab Other Electronically signed by Wanda Zaragoza at 2022 1:21 PM CDT 2022-10-15 Formatting of this note might be differe nt from the original. Jessica Caraballo MA [facility] 16:53:58-00:00 Received medical records joseph Alexandre, records placed in provider initials folder. Electronically signed by Jessica Caraballo MA a t 10/15/2022 4:54 PM CDT 2020-09-15 [id number] [facility] [place], [place] 07:35:00-00:00 [id number] [place] [address] PATIENT NAME: BRETT MARK ADMIT DATE: 09/15/20 ACCOUNT NO: [id number] ROOM NO: AGE: 75 REPORT TYPE: CARDIAC CATHETERIZATION REPORT SEX: F ADMITTING PHYSICIAN: ATTENDING PHYSICIAN:Jorge Alexandre MD PROCEDURE DATE: 09/15/2020 PLATING TANK OPERATOR: Jorge Alexandre M.D. TITLE OF THE PROCEDURE: [...] emoral artery area for local anesthesia. A 6-Swiss sheath was placed in the right common [...] She was tr ansferred back to the [facility] area for observation to be d ischarged later on today on medical therapy and risk factor modification. Dictated By: Jorge Alexandre MD WT: CATH:XOCHITL/BENJY/BELLA PATIENT NAME: BRETT MARK ACCOUNT #: [id number] Conf#: [id number]/DID#: [id number] Authenticated by Jorge Alexandre MD On 08/28 08:15:33 AM at 0815 PATIENT NAME: BRETT MARK 2020-09-15 [id number] [facility] [place], [place] 06:23:00-00:[address] [place] [address] PATIENT NAME: BRETT MARK ADMIT DATE: 09/15/20 ACCOUNT NO: [id number] ROOM NO: AGE: 75 REPORT TYPE: ELECTROCARDIOGRAM SEX: F ADMITTING PHYSICIAN: ATTENDING PHYSICIAN:Jorge Alexandre MD Order: [id number] Test Reason : PRE-PROCEDURE Test Date/Time Stamp: [...] PATIENT NAME: BRETT MARK ACCOUNT #: [id number] 2020-09-15 [id number] [facility] [place], [place] 06:23:00-00:[address] [place], [place] [id number] PATIENT NAME: BRETT MARK ADMIT DATE: 09/15/20 ACCOUNT NO: [id number] ROOM NO: AGE: 75 REPORT TYPE: ELECTROCARDIOGRAM SEX: F ADMITTING PHYSICIAN: ATTENDING PHYSICIAN:Jorge Alexandre MD Order: [id number] Test Reason : PRE-PROCEDURE Test Date/Time Stamp: [...] PATIENT NAME: BRETT MARK ACCOUNT #: [id number] 2020-09-14 [id number] [facility] [place], [place] 06:56:00-00:[address] [place] [address] PATIENT NAME: BRETT MARK ADMIT DATE: ACCOUNT NO: [id number] ROOM NO: AGE: 75 REPORT TYPE: HISTORY AND PHYSICAL SEX: F ADMITTING PHYSICIAN: ATTENDING PHYSICIAN:Jorge Alexandre MD PATIENT NAME: BRETT MARK ADMIT DATE:09/16/19 ADMISSION DATE: 09/15/2020 PLATING TANK OPERATOR: Jorge Alexandre M.D. REASON FOR ADMISSION: Cardiac [...] to hypertension, hyperlipidemia, edema, PVCs, diabetes, sleep options advisor ea on CPAP, diabetic retinopathy, diabetic neuropathy, [...] By: Jorge Alexandre MD WT: HP:LONNIE/BENJY/BELLA Conf#: [id number]/DID#: [id number] Authenticated and Edited by Jorge Alexandre MD On 09/14/20 4:27:45 PM at 1630 PATIENT NAME: BRETT MARK [id number]
[2022-11-13] MEDS ORDERED: FAMOTIDINE 20 MG/2 ML VIAL IV ONE (23:48)
[2022-11-13] MEDS ORDERED: ONDANSETRON 4 MG/2 ML VIAL ONE (23:48)
[2022-11-13] MEDS ORDERED: MEPERIDINE HCL 25 MG/ML SYR ONE (23:50)
[2022-11-13 23:55] LABS: Absolute Lymphocytes (CBC) 1.5 K/uL (0.7-4.9); Hematocrit 30.1 % (36.0-45.0); Lymphocytes % 16.8 % (15.3-44.8); MCV 87.9 fL (80-100); MPV 9.4 fL (7.6-11.3); Platelets 131 thou/uL (152-406); RBC Red Blood Cell Count 3.43 M/uL (3.86-4.86)
[2022-11-13 23:58] LABS: Albumin 3.6 g/dL (3.4-5.0); Bilirubin Total 0.4 mg/dL (0.2-1.0); Potassium 4.3 mEq/L (3.5-5.1); Protein, Total 7.3 g/dL (6.4-8.2)
[2022-11-14 00:18] LABS: Renal Epithelial <5 /HPF (None Seen); Specific Gravity 1.009 (1.005-1.030); Urine Bacteria None Seen /HPF (<20); Urine Bilirubin NEGATIVE (Negative); Urine Blood Trace (Negative); Urine Clarity Clear (Clear); Urine Color Yellow (Yellow); Urine Glucose 4+ (Negative); Urine Mucus Slight /HPF (None Seen); Urine Protein 1+ (Negative); Urine RBC <5 /HPF (None Seen); Urine Urobilinogen Normal (Normal)
[2022-11-14] MEDS ORDERED: ONDANSETRON 4 MG/2 ML VIAL ONE ×2 (01:29→11:32)
[2022-11-14] MEDS ORDERED: MEPERIDINE HCL 25 MG/ML SYR ONE (01:57)
--- NOTE | 2022-11-14 02:18 | ER ---
Nurse's Notes [facility] Name: Cheyenne Gomez Age: 77 yrs Sex: Female : 1945 Arrival Date: 11/13/2022 Time: 22:24 Bed 6 Private MD: Diagnosis: Calculus of kidney;Vomiting;Flank pain right Presentation: 11/13 22:58 Chief complaint: Patient states: she was discharged today from this hospital for a cm10 kidney stone. Pt states that when she was D/C her pain had resolved and when she got home today she started having pain. Pt reports pain to her right side. Coronavirus screen: Vaccine status: Patient reports receiving the 2nd dose of the covid vaccine. Ebola Screen: Patient denies travel to an Ebola-affected area in the 21 days before illness onset. No symptoms or risks identified at this time. Initial Sepsis Screen: Does the patient meet any 2 criteria? No. Patient's initial sepsis screen is negative. Does the patient have a suspected source of infection? No. Patient's initial sepsis screen is negative. Risk Assessment: Do you want to hurt yourself or someone else? Patient reports no desire to harm self or others. Onset of symptoms was November 13, 2022. 22:58 Method Of Arrival: Wheelchair cm10 22:58 Acuity: KYLER 3 cm10 Historical: - Allergies: 23:00 Codeine; cm10 23:00 Morphine; cm10 - PMHx: 23:00 Depression; Diabetes - NIDDM; Hyperlipidemia; Diverticulitis; Kidney stone; cm10 - PSHx: 23:00 colonoscopy; Partial colon removal; toe removed- right foot, 4th digit.; cm10 - Immunization history:: Adult Immunizations unknown. - Social history:: Smoking status: Patient denies any tobacco usage or history of. Screenin:53 [facility] ED Fall Risk Assessment (Adult) Score/Fall Risk Level 0 - 2 = Low Risk. Abuse as6 screen: Denies threats or abuse. Denies injuries from another. Nutritional screening: No deficits noted. Tuberculosis screening: No symptoms or risk factors identified. Assessment: 23:54 General: Appears uncomfortable, Behavior is calm, cooperative. Pain: Complains of pain as6 in right flank Pain radiates to right lower quadrant. Neuro: Level of Consciousness is awake, alert, obeys commands, Oriented to person, place, time, situation. Cardiovascular: Capillary refill < 3 seconds Patient's skin is warm and dry. Respiratory: Respiratory effort is even, unlabored, Respiratory pattern is regular, symmetrical. GI: Reports lower abdominal pain, nausea. 11/14 05:03 GI: Pt is actively vomiting bile. as6 Vital Signs: 11/13 22:58 BP 165 / 68; Pulse 70; Resp 18; Temp 98.1; Pulse Ox 100% ; Weight 81.65 kg; Height 5 cm10 ft. 10 in. ; Pain 8/10; 23:53 BP 183 / 75; Pulse 77; Resp 18 S; Pulse Ox 95% on R/A; as6 11/14 01:53 BP 155 / 56; Pulse 74; Resp 18 S; Pulse Ox 97% on R/A; as6 03:54 BP 155 / 60; Pulse 68; Resp 18 S; Pulse Ox 99% on R/A; as6 05:03 BP 166 / 68; Pulse 75; Resp 18 S; Pulse Ox 99% on R/A; as6 11/13 22:58 Body Mass Index 25.83 (81.65 kg, 177.8 cm) cm10 11/13 22:58 Pain Scale: Adult cm10 ED Course: 11/13 22:32 Patient arrived in ED. mr 22:44 Shakir Chávez MD is Attending Physician. kdr 23:00 Triage completed. cm10 23:01 Arm band placed on Patient placed in an exam room, on a stretcher. cm10 23:04 Jan Kidd, BRIAN is Primary Nurse. as6 23:33 Inserted saline lock: 20 gauge in right antecubital area, using aseptic technique. as6 Blood collected. 23:53 Bed in low position. Call light in reach. Side rails up X 1. as6 11/14 00:20 CT Stone Protocol In Process Unspecified. EDMS 02:16 George Martinez MD is Hospitalizing Provider. kdr 05:04 No provider procedures requiring assistance completed. Patient admitted, IV remains in as6 place. Administered Medications: 11/13 23:55 Drug: Ondansetron IVP 4 mg Route: IVP; Site: right antecubital; as6 23:55 Drug: Famotidine IVP 20 mg Route: IVP; Site: right antecubital; as6 23:55 Drug: Meperidine IVP 25 mg Route: IVP; Site: right antecubital; as6 11/14 01:21 Drug: Ondansetron IVP 4 mg Route: IVP; Site: right antecubital; as6 01:49 Drug: Meperidine IVP 25 mg Route: IVP; Site: right antecubital; as6 Medication: 11/13 23:53 VIS not applicable for this client. as6 Outcome: 11/14 02:17 Decision to Hospitalize by Provider. kdr 05:33 Admitted to Med/surg accompanied by nurse, via wheelchair, room 228, with chart. jb4 05:33 Condition: stable 05:33 Discharge instructions given to patient, family, Instructed on the need for admit, Demonstrated understanding of instructions. 05:34 Patient left the ED. jb4 Signatures: Dispatcher [employer] EDMS Shakir Chávez MD MD kdr Rivera, Mary mr Bryson, James, RN RN jb4 Jan Kidd RN RN as6 Mayuri French RN RN cm10
--- NOTE | 2022-11-14 02:18 | EDPHYS ---
Physician Documentation [facility] Name: Cheyenne Gomez Age: 77 yrs Sex: Female : 1945 Arrival Date: 11/13/2022 Time: 22:24 Bed 6 Private MD: ED Physician Shakir Chávez HPI: 11/14 00:30 This 77 yrs old Female presents to ER via Wheelchair with complaints of Possible Kidney kdr Stone. 00:30 . kdr Historical: - Allergies: 11/13 23:00 Codeine; cm10 23:00 Morphine; cm10 - PMHx: 23:00 Depression; Diabetes - NIDDM; Hyperlipidemia; Diverticulitis; Kidney stone; cm10 - PSHx: 23:00 colonoscopy; Partial colon removal; toe removed- right foot, 4th digit.; cm10 - Immunization history:: Adult Immunizations unknown. - Social history:: Smoking status: Patient denies any tobacco usage or history of. ROS: 11/14 02:17 Constitutional: Negative for fever, chills, and weight loss, Eyes: Negative for injury, kdr pain, redness, and discharge, ENT: Negative for injury, pain, and discharge, Neck: Negative for injury, pain, and swelling, Cardiovascular: Negative for chest pain, palpitations, and edema, Respiratory: Negative for shortness of breath, cough, wheezing, and pleuritic chest pain, : Negative for injury, bleeding, discharge, and swelling, MS/Extremity: Negative for injury and deformity, Skin: Negative for injury, rash, and discoloration, Neuro: Negative for headache, weakness, numbness, tingling, and seizure activity. Psych: Negative for depression, anxiety, suicide ideation, homicidal ideation, and hallucinations, Allergy/Immunology: Negative for hives, rash, and allergies, Endocrine: Negative for neck swelling, polydipsia, polyuria, polyphagia, and marked weight changes, Hematologic/Lymphatic: Negative for swollen nodes, abnormal bleeding, and unusual bruising. Abdomen/GI: Positive for nausea and vomiting, of the posterior aspect of right lateral abdomen and anterior aspect of right lateral abdomen. Exam: 02:17 Constitutional: This is a well developed, well nourished patient who is awake, alert, kdr and in moderate distress. Head/Face: Normocephalic, atraumatic. Eyes: Pupils equal round and reactive to light, extra-ocular motions intact. Lids and lashes normal. Conjunctiva and sclera are non-icteric and not injected. Cornea within normal limits. Periorbital areas with no swelling, redness, or edema. Neck: Trachea midline, no thyromegaly or masses palpated, and no cervical lymphadenopathy. Supple, full range of motion without nuchal rigidity, or vertebral point tenderness. No Meningismus. Chest/axilla: Normal chest wall appearance and motion. Nontender with no deformity. No lesions are appreciated. Cardiovascular: Regular rate and rhythm with a normal S1 and S2. No gallops, murmurs, or rubs. Normal PMI, no JVD. No pulse deficits. Respiratory: Lungs have equal breath sounds bilaterally, clear to auscultation and percussion. No rales, rhonchi or wheezes noted. No increased work of breathing, no retractions or nasal flaring. Abdomen/GI: Soft, non-tender, with normal bowel sounds. No distension or tympany. No guarding or rebound. No evidence of tenderness throughout. Skin: Warm, dry with normal turgor. Normal color with no rashes, no lesions, and no evidence of cellulitis. MS/ Extremity: Pulses equal, no cyanosis. Neurovascular intact. Full, normal range of motion. Neuro: Awake and alert, GCS 15, oriented to person, place, time, and situation. Cranial nerves II-XII grossly intact. Motor strength 5/5 in all extremities. Sensory grossly intact. Cerebellar exam normal. Normal gait. Psych: Awake, alert, with orientation to person, place and time. Behavior, mood, and affect are within normal limits. 02:17 Back: pain, that is mild, CVA tenderness, that is mild, is noted on the right. Vital Signs: 11/13 22:58 BP 165 / 68; Pulse 70; Resp 18; Temp 98.1; Pulse Ox 100% ; Weight 81.65 kg; Height 5 cm10 ft. 10 in. ; Pain 8/10; 23:53 BP 183 / 75; Pulse 77; Resp 18 S; Pulse Ox 95% on R/A; as6 11/14 01:53 BP 155 / 56; Pulse 74; Resp 18 S; Pulse Ox 97% on R/A; as6 03:54 BP 155 / 60; Pulse 68; Resp 18 S; Pulse Ox 99% on R/A; as6 05:03 BP 166 / 68; Pulse 75; Resp 18 S; Pulse Ox 99% on R/A; as6 11/13 22:58 Body Mass Index 25.83 (81.65 kg, 177.8 cm) cm10 11/13 22:58 Pain Scale: Adult cm10 MDM: 02:17 Patient medically screened. kdr 02:17 Data reviewed: vital signs, nurses notes, lab test result(s). kdr 11/13 23:12 Order name: CBC with Diff; Complete Time: 01:33 kdr 11/13 23:12 Order name: CMP; Complete Time: :33 kdr 11/13 23:12 Order name: Lipase; Complete Time: : kdr 11/13 23:12 Order name: Urinalysis w/ reflexes; Complete Time: :33 kdr 11/13 23:20 Order name: CT Stone Protocol kdr 11/13 23:12 Order name: IV Saline Lock; Complete Time: 23:33 kdr 11/13 23:12 Order name: Labs collected and sent; Complete Time: 23:33 kdr Administered Medications: 11/13 23:55 Drug: Ondansetron IVP 4 mg Route: IVP; Site: right antecubital; as6 23:55 Drug: Famotidine IVP 20 mg Route: IVP; Site: right antecubital; as6 23:55 Drug: Meperidine IVP 25 mg Route: IVP; Site: right antecubital; as6 11/14 01:21 Drug: Ondansetron IVP 4 mg Route: IVP; Site: right antecubital; as6 01:49 Drug: Meperidine IVP 25 mg Route: IVP; Site: right antecubital; as6 Disposition Summary: 11/14/22 02:17 Hospitalization Ordered Hospitalization Status: Inpatient Admission kdr Provider: George Martinez Location: Telemetry/MedSurg (Inpatient) kdr Condition: Fair kdr Problem: new kdr Symptoms: have improved kdr Bed/Room Type: Standard kdr Room Assignment: 228(11/14/22 05:11) cg Diagnosis - Calculus of kidney kdr - Vomiting kdr - Flank pain right kdr Forms: - Medication Reconciliation Form kdr - SBAR form kdr - Leadership Thank You Letter kdr Signatures: Dispatcher [employer] EDMS Rittger, Shakir, MD MD kdr Onel, Kala, RN RN cg Jan Kidd RN RN as6 Mayuri French RN RN cm10 Corrections: (The following items were deleted from the chart) 05:11 02:17 mahad
[2022-11-14] MEDS ORDERED: D5 0.45 NS 1,000 ML IV SCH (05:34)
[2022-11-14] MEDS ORDERED: MORPHINE 4 MG/ML SYR IV PRN (05:34)
[2022-11-14] MEDS ORDERED: ACETAMINOPHEN 500 MG TAB PO PRN (05:34)
[2022-11-14] MEDS ORDERED: HYDROMORPHONE HCL 0.5 MG/0.5 ML INJ IV PRN (05:50)
[2022-11-14] MEDS ORDERED: D50W 25 GM/50 ML SYRINGE IV PRN (06:00)
[2022-11-14] MEDS ORDERED: GLUCAGON 1 MG/VIAL IM PRN (06:00)
[2022-11-14] MEDS ORDERED: D10W 125 ML IV PRN (06:03)
[2022-11-14] MEDS: ONDANSETRON 4 MG/2 ML VIAL IV PRN ×2 (06:08→10:27)
[2022-11-14] MEDS: NA CHLORIDE 0.9% 1,000 ML IV SCH ×3 (06:09→18:22)
[2022-11-14 06:34] VITALS: BMI 28.0
[2022-11-14] MEDS ORDERED: MECLIZINE HCL 12.5 MG TAB PO PRN (08:48)
[2022-11-14] MEDS ORDERED: HYDRALAZINE HCL 20 MG/ML VIAL IV PRN (08:50)
--- NOTE | 2022-11-14 08:51 | P.HP ---
Certification for Inpatient Patient admitted to: Inpatient With expected LOS: >2 Midnights Patient will require the following post-hospital care: None Practitioner: I am a practitioner with admitting privileges, knowledge of patient current condition, hospital course, and medical plan of care. Services: Services provided to patient in accordance with Admission requirements found in Title 42 Section 412.3 of the Code of Federal Regulations Patient History Date of Service: 11/14/22 Primary Care Provider: Eloisa Reason for admission: renal stone, dm2 History of Present Illness: Patient is a pleasant lady with a history of dm2, with ckd stage 3, htn, hyperlipidemia. Some depression and pain. The patient started having nausea and dry heaving this afternoon. She came to the ER and was found to have a non occluded kidney stone. The patient came to the ER. Was found to have a renal stone, non occluding. She is doing a little better after receiving pain and nausea treatment 09/14 Patient wished to go home yesterday. As she was tolerating treatment. The patient went home had a lot of nausea and vomitting and came back to the hospital. Will readmit her for controll of her nausea. Allergies codeine Adverse Reaction (Verified 11/14/22 05:48) Nausea/Vomiting morphine Adverse Reaction (Verified 11/14/22 05:48) Nausea/Vomiting Home Medications: Amlodipine [Norvasc*] 5 mg PO DAILY 11/12/22 Aspirin Chewable [Aspirin Chewable*] 81 mg PO DAILY 11/12/22 Betamethasone Valerate 2 g TOP SEECOM 11/12/22 Codeine/APAP [Tylenol #3*] 1 tab PO Q4HP PRN 11/12/22 Cyanocobalamin [Vitamin B-12*] 1 tab PO DAILY 11/12/22 Diclofenac 1% Gel 4 g TOP QID 11/12/22 Ferrous Sulfate [Ferrous Sulfate*] 325 mg PO BID 11/12/22 Fluoxetine HCl [Prozac] 20 mg PO DAILY 11/12/22 Fluticasone [Flonase 50MCG Nasal [place]*] 1 spr NS DAILY 11/12/22 Gabapentin 200 mg PO BID 11/12/22 Lidocaine 5% [Lidocaine HCl] 5 g TOP BIDP PRN 11/12/22 Lisinopril/Hydrochlorothiazide [Lisinopril-Hctz 20-25 mg Tab] 1 tab PO DAILY 11/12/22 Meclizine HCl 25 mg PO TIDP PRN 11/12/22 Metformin HCl [Metformin HCl ER] 1,000 mg PO BID 11/12/22 Multivit-Min/Iron/Folic/Lutein [Centrum Silver Women Tablet] 1 tab PO DAILY 11/12/22 Pravastatin Sodium 20 mg PO BEDTIME 11/12/22 - Past Medical/Surgical History Has patient received pneumonia vaccine in the past: Yes Diabetic: Yes -: IDDM -: Hyperlipidemia -: Arrythmia -: anxiety -: diverticulitis -: ulcers (non-bleeding) -: seasonal allergies -: Partial Colectomy -: amp 4th toe rt foot. blister Psychosocial/ Personal History: Patient is . Her daughter has been living with her. - Family History Father -: Heart disease daughter -: Heart disease Notes: CHF in her 50's - Social History Smoking Status: Never smoker Alcohol use: No CD- Drugs: No Caffeine use: Yes Place of Residence: Home Review of Systems 10-point ROS is otherwise unremarkable Gastrointestinal: Nausea, Vomiting, Abdominal Pain Physical Examination - Vital Signs Temperature: 97.3 F Blood Pressure: 153/65 Pulse: 73 Respirations: 16 Pulse Ox (%): 100 - Physical Exam General: Alert, In no apparent distress HEENT: Atraumatic, PERRLA, Mucous membr. moist/pink, EOMI, Sclerae nonicteric Neck: Supple, 2+ carotid pulse no bruit, No LAD, Without JVD or thyroid abnormality Respiratory: Clear to auscultation bilaterally, Normal air movement Cardiovascular: Regular rate/rhythm, Normal S1 S2 Gastrointestinal: Normal bowel sounds, No tenderness Musculoskeletal: No tenderness Integumentary: No rashes Neurological: Normal gait, Normal speech, Normal strength at 5/5 x4 extr, Normal tone, Normal affect Lymphatics: No axilla or inguinal lymphadenopathy - Studies Laboratory Data (last 24 hrs) 11/13/22 11/13/22 23:28 23:28 WBC 9.10 Hgb 10.3 L D Hct 30.1 L Plt Count 131 L Sodium 137 Potassium 4.3 BUN 26 H Creatinine 1.51 H Glucose 259 H Total Bilirubin 0.4 AST 11 L ALT 23 Alkaline Phosphatase 60 Lipase 43 Assessment and Plan - Problems (Diagnosis) (1) Renal stone Current Visit: No Status: Acute Plan: restart fluids, pain and nausea medications. (2) HTN (hypertension) Current Visit: No Status: Chronic Plan: restart home medications Qualifiers: Hypertension type: primary hypertension (3) Type 2 diabetes mellitus with diabetic chronic kidney disease Current Visit: No Status: Chronic Plan: will restart home medications. Start ada diet and insulin sliding scale. Qualifiers: Chronic kidney disease stage 3 subtype: stage 3b (GFR 30-44) Discharge Plan: Home Plan to discharge in: 24 Hours - Advance Directives Does patient have a Living Will: Yes Does patient have a Durable POA for Healthcare: No - Code Status/Comfort Care Code Status Assessed: Yes Code Status: Full Code Physician Review: Patient Assessed, Agree with Above Assessment and Plan Critical Care: No Time Spent Managing Pts Care (In Minutes): 45
[2022-11-14] MEDS ORDERED: HOME MED 1 EA UNK (Lisinopril/Hydrochlorothiazide [Lisinopril-Hctz 20-25 Mg Tab] Tablet) PO SCH (09:00)
[2022-11-14] MEDS: lisinopriL 20 MG TAB PO SCH (09:00)
[2022-11-14] MEDS: MULTIVIT W/ MINERAL TAB PO SCH (09:00)
[2022-11-14] MEDS: AMLODIPINE 5 MG TAB PO SCH (09:00)
[2022-11-14] MEDS: CYANOCOBALAMIN 1,000 MCG TAB PO SCH (09:00)
[2022-11-14] MEDS ORDERED: hydroCHLOROthiazide 12.5 MG CAP PO SCH (09:00)
[2022-11-14] MEDS: hydroCHLOROthiazide 25 MG TAB PO SCH (09:00)
[2022-11-14] MEDS: METFORMIN ER 500 MG TAB PO SCH ×2 (09:00→21:26)
[2022-11-14] MEDS: FERROUS SULFATE 325 MG TAB PO SCH ×2 (09:00→21:26)
[2022-11-14] MEDS ORDERED: BETAMETHASONE VALERATE TOP SCH (09:00)
[2022-11-14] MEDS: DICLOFENAC 1% TOP SCH ×4 (09:00→21:00)
[2022-11-14] MEDS: FLUOXETINE 20 MG CAP PO SCH (09:00)
[2022-11-14] MEDS: ASPIRIN 81 MG CHEWABLE TABLET PO SCH (09:00)
[2022-11-14] MEDS: INSULIN -REGULAR HUMAN 50 UNIT/0.5 ML ML SQ SCH ×4 (09:14→21:00)
[2022-11-14] MEDS ORDERED: NA CHLORIDE 0.9% 1,000 ML ONE (11:04)
--- NOTE | 2022-11-14 11:11 | P.CNS ---
Date of Consult: 11/14/22 Reason for Consult: intractable N/V Requesting Physician: George Martinez Primary Care Provider: Eloisa Chief Complaint: renal stone, dm2 History of Present Illness: 77yo woman with h/o DM2, HTN, hyperlipidemia, CKD stage 3, arrhythmia, gastric ulcers, diverticulitis and depression presents having been seen on Thursday, 2 days ago, with right flank pain and nausea and vomiting. She was seen in the ER and admitted, ultimately discharged the next day. She returned to the ER later that evening and was readmitted with intractable N/V. At the time I saw her, she was actively retching. She denied any F/C. She denies any prior stone events. Past surgical history partial colectomy and amputation fourth toe right foot Family history: No urologic malignancy Social history: Never smoker Examination: Ill-appearing and in moderate distress due to persistent nausea and vomiting Alert, awake, oriented No dyspnea or sign of respiratory distress Abdomen soft, nontender Seated at the side of the bed hunched over in front of a trash can 11/13/2022 WBC 9.1, hemoglobin/hematocrit 10.3/30.1, platelets 131, creatinine 1.45 at prior baseline, UA micro 4+ glucose, trace heme but negative WBCs/RBCs Review of CT scan stone protocol, report from radiologist not yet available in the system: Right-sided hydronephrosis with calculus within the intramural ureter approximately 6 to 7 mm in diameter Assessment and recommendation: 77yo woman with h/o DM2, HTN, hyperlipidemia, CKD stage 3, arrhythmia, gastric ulcers, diverticulitis and depression with right 6 to 7 mm distal ureterolithiasis intramural ureter with intractable nausea and vomiting. -I counseled the patient about the recommendation for cystoscopy with right ureteral stent placement I explained the purpose of the stent to relieve the obstruction and to a degree the pain, but I explained the contrast potential for stent pain/discomfort. I also explained the irritative LUTS associated with having a stent. I further explained the stent was a foreign body that must be removed to avoid complications like encrustation and infection. I explained the need for subsequent return to definitive operative management at a time when the risk of infection complicating his lower. -She agrees, has been n.p.o. due to intractable nausea and vomiting, and will be taken today for cystoscopy, right retrograde pyelography, right ureteral stent placement. Allergies codeine Adverse Reaction (Verified 11/14/22 05:48) Nausea/Vomiting morphine Adverse Reaction (Verified 11/14/22 05:48) Nausea/Vomiting Home Medications: Amlodipine [Norvasc*] 5 mg PO DAILY 11/12/22 Aspirin Chewable [Aspirin Chewable*] 81 mg PO DAILY 11/12/22 Betamethasone Valerate 2 g TOP SEECOM 11/12/22 Codeine/APAP [Tylenol #3*] 1 tab PO Q4HP PRN 11/12/22 Cyanocobalamin [Vitamin B-12*] 1 tab PO DAILY 11/12/22 Diclofenac 1% Gel 4 g TOP QID 11/12/22 Ferrous Sulfate [Ferrous Sulfate*] 325 mg PO BID 11/12/22 Fluoxetine HCl [Prozac] 20 mg PO DAILY 11/12/22 Fluticasone [Flonase 50MCG Nasal [place]*] 1 spr NS DAILY 11/12/22 Gabapentin 200 mg PO BID 11/12/22 Lidocaine 5% [Lidocaine HCl] 5 g TOP BIDP PRN 11/12/22 Lisinopril/Hydrochlorothiazide [Lisinopril-Hctz 20-25 mg Tab] 1 tab PO DAILY 11/12/22 Meclizine HCl 25 mg PO TIDP PRN 11/12/22 Metformin HCl [Metformin HCl ER] 1,000 mg PO BID 11/12/22 Multivit-Min/Iron/Folic/Lutein [Centrum Silver Women Tablet] 1 tab PO DAILY 11/12/22 Pravastatin Sodium 20 mg PO BEDTIME 11/12/22 - Past Medical/Surgical History Diabetic: Yes -: IDDM -: Hyperlipidemia -: Arrythmia -: anxiety -: diverticulitis -: ulcers (non-bleeding) -: seasonal allergies -: Partial Colectomy -: amp 4th toe rt foot. blister Psychosocial/ Personal History: Patient is . Her daughter has been living with her. - Family History Father Medical History: Heart disease daughter Medical History: Heart disease Notes: CHF in her 50's - Social History Smoking Status: Never smoker Alcohol use: No CD- Drugs: No Caffeine use: Yes Place of Residence: Home Physical Examination Temp Pulse Resp BP Pulse Ox 97.3 F 73 16 153/65 H 100 11/14/22 08:52 08/18/23 08:52 11/14/22 08:52 11/14/22 08:52 11/14/22 08:52 Laboratory Data (last 24 hrs) 11/13/22 11/13/22 23:28 23:28 WBC 9.10 Hgb 10.3 L D Hct 30.1 L Plt Count 131 L Sodium 137 Potassium 4.3 BUN 26 H Creatinine 1.51 H Glucose 259 H Total Bilirubin 0.4 AST 11 L ALT 23 Alkaline Phosphatase 60 Lipase 43 - Problems (1) Ureterolithiasis Current Visit: Yes Status: Acute (2) Hydronephrosis, right Current Visit: Yes Status: Acute (3) Intractable nausea and vomiting Current Visit: Yes Status: Acute Conclusions/Impression: See HPI assessment and plan Critical Care: No Time Spent Managing Pts care (In Minutes): 30
[2022-11-14] MEDS ORDERED: FENTANYL CITR 100 MCG/2 ML ONE (11:31)
[2022-11-14] MEDS ORDERED: MIDAZOLAM HCL 2 MG/2 ML INJ ONE (11:31)
[2022-11-14] MEDS ORDERED: propofoL 200 MG/20 ML VIAL IV ONE (11:31)
[2022-11-14] MEDS ORDERED: LIDOCAINE 1% MPF 5 ML VIAL ONE (11:32)
[2022-11-14] MEDS ORDERED: CEFAZOLIN SODIUM 1 GM/VIAL IVP ONE (11:42)
--- NOTE | 2022-11-14 12:21 | P.OP ---
Date of Service: 11/14/22 Preoperative diagnosis: 1. Right ureterolithiasis 2. Right hydronephrosis 3. Intractable nausea and vomiting 4. Chronic kidney disease stage III Postoperative diagnoses: Same Principal procedure: Cystoscopy Right retrograde pyelography Right ureteral stent placement Indication for procedure: 77-year-old woman with history of DM 2, hypertension, hyperlipidemia, CKD stage III, arrhythmia, gastric ulcers, diverticulitis and depression with right 6 to 7 mm distal ureterolithiasis involving the intramural ureter associated with i ntractable nausea and vomiting and right flank pain. Because she had been admitted, discharged, and readmitted with the nausea and vomiting, and because she was still persistently miserable associated with the pain and nausea and vomiting, I recommended urgent ureteral stent placement. Procedure note: The patient was consented in the preoperative holding area and then transferred to the operative suite where general anesthesia was induced. She was given Ancef 2 g IV antimicrobial prophylaxis, and pneumoboots were provided for DVT prophylaxis. She was placed in the lithotomy position, padded and secured to the table appropriately, and her genitalia was prepped with Hibiclens before being draped in standard fashion. The case was begun using a 22 Austrian rigid cystoscope to traverse the urethra and into the bladder with ease. The bladder was surveyed in its entirety, and there were no papillary mucosal lesions, foreign bodies or stones noted. The ureteral orifice ease were orthotopic in location, and there was Pyridium colored urine emanating from the right ureteral orifice. I thus cannulated the ureteral orifice using a 5 Austrian ureteral access catheter and performed a retrograde pyelogram. Right retrograde pyelography: Using a 70: 30 mixture of Omnipaque and saline, contrast was injected via the lumen of the 5 Austrian ureteral access catheter and did propagate up a ureteral nephrotic segment beyond a radiolucent filling defect, likely the ureteral calculus, before navigating up a tortuous ureter and a point of obstruction within the proximal ureter of uncertain origin, before entering a hydronephrotic right renal pelvis. I then passed the sensor wire up the 5 Austrian ureteral access catheter and via the distal into the mid and proximal ureter before it reached a point of obstruction previously identified on retrograde study. I thus advanced the 5 Austrian ureteral access catheter over the wire up into the proximal ureter, and then I was able to navigate the sensor wire beyond that point of obstruction and into the upper pole calyx of the right kidney as evident fluoroscopically. A coil of the wire was formed there. I then removed the 5 Austrian ureteral access catheter and passed a 6 Austrian by 26 cm double-J ureteral stent into the collecting system with a coil observed fluoroscopically in the upper pole and 1 cystoscopically formed in her bladder. I then decompressed her bladder of fluid and urine, and took her out of the lithotomy position. She was then awakened from general anesthesia, transferred to a stretcher, and then transferred to the recovery room in good condition. Complications: None Discharge disposition: She should follow-up in the urology clinic to discuss plans for definitive management of her first time stone forming right obstructive ureterolithiasis. Since the stone was radiolucent, she will require definitive surgical management via ureteroscopy with laser lithotripsy and stent exchange.
--- NOTE | 2022-11-14 12:45 | RAD REPORT ---
EXAM DESCRIPTION: RAD - Urethrocystogrphy Retrograde - 11/14/2022 12:17 pm CLINICAL HISTORY: RT STENT COMPARISON: Pelvis dated 11/24/2021; Stone Protocol dated 11/14/2022 FINDINGS/IMPRESSION: Eleven intraoperative fluoroscopic images were submitted showing cannulation of the right ureter and placement of a right-sided ureteral stent. Fluoro time: 0.18 minutes
[2022-11-14] MEDS ORDERED: ENOXAPARIN 30 MG/0.3 ML SQ SCH (17:00)
--- NOTE | 2022-11-14 17:33 | RAD REPORT ---
EXAM DESCRIPTION: CT - Stone Protocol - 11/14/2022 1:03 am CLINICAL HISTORY: 77 years Female right flank pain COMPARISON: November 12, 2022 TECHNIQUE: Images were obtained in axial, sagittal, and coronal planes. No intravenous or oral contr ast was administered. This exam was performed according to our departmental dose-optimization program which includes use of Automated Exposure Control, adjustment of the mA and/or kV according to patient size and/or use of i terative reconstruction technique. FINDINGS: No abnormality involving the liver, spleen, pancreas, or adrenal glands bilaterally. Joseline lithiasis. 5 mm calculus right ureterovesicular junction with associated moderate right hydronephrosis and hydro ureter. Marked right perinephric stranding with perinephric fluid. Additional punctate nonobstructing calcification right kidney. Punctate nonobstructing calcification left kidney. No hydronephrosis on left. Mild left perinephric trainee. Unremarkable bladder. Enterocolic anastomosis right upper abdomen. Prior resection appendix. Moderate to marked constipatio n. No bowel obstruction or perforation. Calcification of the abdominal aorta with no dilatation seen. No adenopathy or abnormal fluid collect ions noted. Extensive vascular calcification. No acute osseous abnormality. No abnormalities lower lungs bilaterally. IMPRESSION: 5 mm calculus right ureterovesicular junction with moderate to marked right hydronephros is and hydroureter. Punctate nonobstructing calcifications kidneys bilaterally also noted. No hydrone phrosis on the left. Cholelithiasis. Electronically signed by: Catherine Mendoza MD 11/14/2022 12:43 AM CDT
[2022-11-15] MEDS: NA CHLORIDE 0.9% 1,000 ML IV SCH (05:00)
[2022-11-15 06:18] LABS: Absolute Lymphocytes (CBC) 2.2 K/uL (0.7-4.9); Hematocrit 24.1 % (36.0-45.0); Lymphocytes % 29.9 % (15.3-44.8); MPV 9.4 fL (7.6-11.3); Platelets 128 thou/uL (152-406); RBC Red Blood Cell Count 2.74 M/uL (3.86-4.86)
[2022-11-15] MEDS: INSULIN -REGULAR HUMAN 50 UNIT/0.5 ML ML SQ SCH (07:30)
[2022-11-15] MEDS: METFORMIN ER 500 MG TAB PO SCH (08:30)
[2022-11-15] MEDS: CYANOCOBALAMIN 1,000 MCG TAB PO SCH (08:30)
[2022-11-15] MEDS: FLUOXETINE 20 MG CAP PO SCH (08:30)
[2022-11-15] MEDS: hydroCHLOROthiazide 25 MG TAB PO SCH (08:30)
[2022-11-15] MEDS: lisinopriL 20 MG TAB PO SCH (08:30)
[2022-11-15] MEDS: ASPIRIN 81 MG CHEWABLE TABLET PO SCH (08:30)
[2022-11-15] MEDS: MULTIVIT W/ MINERAL TAB PO SCH (08:30)
[2022-11-15] MEDS: AMLODIPINE 5 MG TAB PO SCH (08:31)
[2022-11-15] MEDS: FERROUS SULFATE 325 MG TAB PO SCH (08:31)
[2022-11-15] MEDS: DICLOFENAC 1% TOP SCH (09:00)
[2022-11-15 11:02] VITALS: O2SAT 98
--- NOTE | 2022-11-15 12:33 | P.DS ---
Admission Date: 11/14/22 Discharge Date: 11/15/22 Primary Care Provider: Eloisa Disposition: ROUTINE DISCHARGE Discharge Condition: GOOD Reason for Admission: renal stone, dm2 - Problems (1) Renal stone Current Visit: No Status: Acute (2) HTN (hypertension) Current Visit: No Status: Chronic Qualifiers: Hypertension type: primary hypertension (3) Type 2 diabetes mellitus with diabetic chronic kidney disease Current Visit: No Status: Chronic Qualifiers: Chronic kidney disease stage 3 subtype: stage 3b (GFR 30-44) Brief History of Present Illness: Patient is a pleasant lady with a history of dm2, with ckd stage 3, htn, hyperlipidemia. Some depression and pain. The patient started having nausea and dry heaving this afternoon. She came to the ER and was found to have a non occluded kidney stone. The patient came to the ER. Was found to have a renal stone, non occluding. She is doing a little better after receiving pain and nausea treatment 09/14 Patient wished to go home yesterday. As she was tolerating treatment. The patient went home had a lot of nausea and vomitting and came back to the hospital. Will readmit her for controll of her nausea. Hospital Course: patient returned due to pain. Had a stenting of her ureter with Dr. Marita Weston. Follow up with her pcp and Dr. Mota in a week. She is doing well this morning. She has some minor dysuria. Otherwise doing well. Thank you for allowing me to take part in her care. Vital Signs/Physical Exam: Temp Pulse Resp BP Pulse Ox 99.4 F 77 16 135/68 95 11/15/22 08:00 11/15/22 08:31 11/15/22 08:00 11/15/22 08:31 11/15/22 08:00 General: Alert, In no apparent distress HEENT: Atraumatic, PERRLA, EOMI Neck: Supple, JVD not distended Respiratory: Clear to auscultation bilaterally, Normal air movement Cardiovascular: Regular rate/rhythm, Normal S1 S2 Gastrointestinal: Normal bowel sounds, No tenderness Musculoskeletal: No tenderness Integumentary: No rashes Neurological: Normal speech, Normal tone, Normal affect Lymphatics: No axilla or inguinal lymphadenopathy Laboratory Data at Discharge: WBC 7.50 thou/uL (4.3-10.9) 11/15/22 05:46 Hgb 8.4 g/dL (12.0-15.0) L 11/15/22 05:46 Hct 24.1 % (36.0-45.0) L 11/15/22 05:46 Plt Count 128 thou/uL (152-406) L 11/15/22 05:46 Sodium 143 mEq/L (136-145) 11/15/22 05:46 Potassium 4.0 mEq/L (3.5-5.1) 11/15/22 05:46 BUN 22 mg/dL (7-18) H 11/15/22 05:46 Creatinine 1.45 mg/dL (0.55-1.02) H 11/15/22 05:46 Glucose 150 mg/dL (74-106) H 11/15/22 05:46 Total Bilirubin 0.4 mg/dL (0.2-1.0) 11/13/22 23:28 AST 11 U/L (15-37) L 11/13/22 23:28 ALT 23 U/L (13-56) 11/13/22 23:28 Alkaline Phosphatase 60 U/L (45-117) 11/13/22 23:28 Lipase 43 U/L (13-75) 11/13/22 23:28 Home Medications: Amlodipine [Norvasc*] 5 mg PO DAILY 11/12/22 Aspirin Chewable [Aspirin Chewable*] 81 mg PO DAILY 11/12/22 Betamethasone Valerate 2 g TOP SEECOM 11/12/22 Codeine/APAP [Tylenol #3*] 1 tab PO Q4HP PRN 11/12/22 Cyanocobalamin [Vitamin B-12*] 1 tab PO DAILY 11/12/22 Diclofenac 1% Gel 4 g TOP QID 11/12/22 Ferrous Sulfate [Ferrous Sulfate*] 325 mg PO BID 11/12/22 Fluoxetine HCl [Prozac] 20 mg PO DAILY 11/12/22 Fluticasone [Flonase 50MCG Nasal [place]*] 1 spr NS DAILY 11/12/22 Gabapentin 200 mg PO BID 11/12/22 Lidocaine 5% [Lidocaine HCl] 5 g TOP BIDP PRN 11/12/22 Lisinopril/Hydrochlorothiazide [Lisinopril-Hctz 20-25 mg Tab] 1 tab PO DAILY 11/12/22 Meclizine HCl 25 mg PO TIDP PRN 11/12/22 Metformin HCl [Metformin HCl ER] 1,000 mg PO BID 11/12/22 Multivit-Min/Iron/Folic/Lutein [Centrum Silver Women Tablet] 1 tab PO DAILY 11/12/22 Pravastatin Sodium 20 mg PO BEDTIME 11/12/22 Ondansetron [Zofran] 4 mg PO Q6H PRN 5 Days #20 tab 11/15/22 Tramadol HCl [Ultram] 50 mg PO Q8HR 7 Days #20 tab 11/15/22 New Medications: Tramadol HCl [Ultram] 50 mg PO Q8HR 7 Days #20 tab Ondansetron [Zofran] 4 mg PO Q6H PRN 5 Days #20 tab PRN Reason: Nausea / Vomiting Diet: ADA Activity: Ad bonny Followup: Alex Weston [ACTIVE - CAN ADMIT] - 1 Week Physician Review: Patient Assessed, Agree with Above Assessment and Plan Time spent managing pt's care (in minutes): 30
[2022-11-15 13:13] VITALS: BP 148/68; TEMP 98.6
== END 2022-11-15 14:00 | disposition home or self-care (01) | DRG 661 ==
LOC: ER 22:24 → ERHOLD 11-14 04:59 → 2ND 11-14 05:19 → OBSVTOIN 11-14 05:34
PROVIDERS: ADMIT Internal Medicine; ATTEND Internal Medicine
PROC: BT1D1ZZ Fluoroscopy of Right Kidney, Ureter and Bladder using Low Osmolar Contrast (ICD-10-PCS; 2022-11-14)
PROC: 0T768DZ Dilation of Right Ureter with Intraluminal Device, Via Natural or Artificial Opening Endoscopic (ICD-10-PCS; principal; 2022-11-14 11:00)
DX: N13.2 Hydronephrosis with renal and ureteral calculous obstruction (principal); E78.5 Hyperlipidemia, unspecified; I12.9 Hypertensive chronic kidney disease with stage 1 through stage 4 chronic kidney disease, or unspecified chronic kidney disease; N18.32 Chronic kidney disease, stage 3b; E11.22 Type 2 diabetes mellitus with diabetic chronic kidney disease; Z88.5 Allergy status to narcotic agent; Z79.82 Long term (current) use of aspirin; Z79.84 Long term (current) use of oral hypoglycemic drugs; Z79.899 Other long term (current) drug therapy; Z89.421 Acquired absence of other right toe(s)
CPT/HCPCS: 36415; 51610; 74176; 74450; 76377; 80048; 80053; 81001; 82947; 83690; 85025; 96374; 96375; 99285; G0378; J0690; J1170; J1650; J1815; J2001; J2175; J2250; J2405; J2704; J3010; J7030

== ENCOUNTER 2023-01-27 07:03 | Day surgery (SDC) | payer OTHER ==
[2023-01-13 15:54] LABS: Absolute Lymphocytes (CBC) 1.4 K/uL (0.7-4.9); Hematocrit 30.7 % (36.0-45.0); MCV 83.9 fL (80-100); Platelets 180 thou/uL (152-406); RBC Red Blood Cell Count 3.66 M/uL (3.86-4.86)
[2023-01-13 15:58] LABS: Protime INR 1.01
[2023-01-13 16:09] LABS: Potassium 4.3 mEq/L (3.5-5.1)
[2023-01-27] MEDS ORDERED: NA CHLORIDE 0.9% 1,000 ML ONE ×2 (07:37→08:37)
[2023-01-27] MEDS ORDERED: MIDAZOLAM HCL 2 MG/2 ML INJ ONE (09:18)
[2023-01-27] MEDS ORDERED: dexAMETHasone 10 MG/ML VIAL ONE (09:18)
[2023-01-27] MEDS ORDERED: LIDOCAINE 1% MPF 5 ML VIAL ONE (09:18)
[2023-01-27] MEDS ORDERED: FENTANYL CITR 100 MCG/2 ML ONE ×2 (09:18→11:11)
[2023-01-27] MEDS ORDERED: ONDANSETRON 4 MG/2 ML VIAL ONE (09:18)
[2023-01-27] MEDS ORDERED: propofoL 200 MG/20 ML VIAL IV ONE (09:18)
[2023-01-27] MEDS ORDERED: CEFAZOLIN SODIUM 1 GM/VIAL ONE (09:23)
[2023-01-27] MEDS ORDERED: Phenylephrine HCl 10 MG/ML 1 ML VIAL ONE (10:12)
[2023-01-27] MEDS ORDERED: Mastisol Adhesive Liq ONE (10:19)
[2023-01-27] MEDS ORDERED: HYDROCODONE/APAP 5/325 MG TAB PO PRN (11:04)
[2023-01-27 11:15] VITALS: TEMP 97.2
--- NOTE | 2023-01-27 11:15 | RAD REPORT ---
EXAM DESCRIPTION: RAD - Urethrocystogrphy Retrograde - 01/27/2023 10:47 am CLINICAL HISTORY: RIGHT SIDE COMPARISON: Urethrocystogrphy Retrograde dated 11/14/2022 FINDINGS/IMPRESSION: Seven intraoperative fluoroscopic images submitted showing cannulation of the r ight ureter and placement of right ureteral stent.
[2023-01-27] MEDS ORDERED: HYDROCODONE/APAP 5/325 MG TAB ONE (12:35)
--- NOTE | 2023-01-27 13:43 | OP ---
Surgeon: SUE THOMAS Preoperative Diagnoses: 1.Right ureterolithiasis. 2.Chronic kidney disease. Postoperative Diagnoses: 1.Right ureterolithiasis. 2.Chronic kidney disease. Principal Procedures: 1.Cystoscopy. 2.Right retrograde pyelography. 3.Right ureteroscopy with laser lithotripsy. 4.Right ureteroscopic stone basketing. 5.Right ureteral stent exchange. Indication For Procedure: Ms. Gomez presented via the emergency department with acute on chronic renal failure associated with an obstructing ureteral calculus. She underwent cystoscopy with right ureteral stent placement and presents today for definitive management. Of note, the patient expresse d some frequent loose stools within the last 2 weeks, and since she was having some associated weakne ss associated with the dehydration, I gave her a bolus of IV fluids in preop, and she felt significan tly better thus allowing us to proceed today. Procedure In Detail: The patient was consented in the preoperative holding area before being transfe rred to the operative suite where general anesthesia was induced. She was given Ancef 1 g IV antimic robial prophylaxis because of her chronic kidney disease. Pneumo boots were provided for DVT prophyl axis. She was placed in the lithotomy position, padded and secured to the table appropriately. Her genitalia were prepped with Hibiclens and draped in standard fashion. The case was begun using a 22- Latvian rigid cystoscope to traverse the urethra and into the bladder with ease. The bladder was deco mpressed of fluid and urine, and the ureteral stent was noted to emanate from the right ureteral orif ice. Of note, it was significantly calcified all along the coil of the stent. As a result, I used a n alligator grasper to grasp the tip of the stent and deliver the distal end to the meatus and attemp lily to pass a Sensor wire up the stent into her renal pelvis. Unfortunately, the inner portion of th e stent was also obstructed/calcified, and the stent would not pass despite multiple attempts at trim solange the stent to a more proximal location. As a result, I replaced the cystoscope back into her humble dder and passed the Sensor wire directly into the ureteral orifice alongside the indwelling stent and up the ureter coiling it within the putative renal pelvis/upper pole calyx. I then removed the sten t with ease, and replaced the 5-Latvian ureteral access catheter alongside the wire and injected contr ast to perform a retrograde pyelogram. Right retrograde pyelography: Using a 70:30 mixture of Omnipaque and saline, contrast was injected u p the lumen of the 5-Latvian ureteral access catheter and did propagated up the distal into the mid an d proximal ureter without any evidence of ureteral extravasation before entering the renal pelvis and delineating the calyces. The wire was appropriately positioned within the upper pole calyx of the k idney. As a result, I removed the 5-Latvian ureteral access catheter and exchanged the cystoscope for a semi-rigid ureteroscope which I then used pressurized saline to navigate via her urethra into her bladder and into the right ureteral orifice. I then navigated the ureteroscope up the distal into th e mid distal ureter where the calculus was observed to be free-floating and non-impacted. There was no evidence of any ureteral mucosal injury evident at this time. As a result, I utilized a 365 nm la ser fiber initially at a power setting of 0.8 joules and 8 hertz to begin to fragment the stone. Bec ause the stone was bouncing significantly and floating up more proximally in the ureter due to the pr essurized saline, I then switched to 0.4 joules and 25 hertz to dust the stone. I continued dusting it until the fragments were smaller than 1 mm in maximum diameter. Because of the burden of stone af ter fragmentation, I then utilized a 1.9 Latvian 0 tip Nitinol basket to grab the bulk of the larger s tone fragments and removed them from the ureter directly under vision. I sent these for chemical pillo lysis. I then backloaded the cystoscope over the indwelling safety wire and passed a 6-Latvian x 26 c m double-J ureteral stent coiling it within the upper pole calyx of the kidney and with a cystoscopic coil visualized in the bladder. The stent was left on its tether; so, I decompressed her bladder of fluid and urine and removed all of the stent encrustation left within the bladder. I then secured t he tether of the stent to her introitus using Mastisol and Steri-Strips. She was then taken out of t he lithotomy position, awakened from general anesthesia, transferred to a stretcher, and then transfe rred to the recovery room in good condition. Complications: None. Discharge Disposition: As she is a first time stone former, which we should confirm when she comes i n to have her stent removed on either this Thursday or next Thursday, no further routine followup would b e required. She should be counseled to increase the volume of the fluid she drinks so that she does not form future stones. Specifically, she needs to drink enough fluid, particularly water or natural cranberry juice or lemonade, such that she has a full bladder and needs to void at least every 3, bu t no more than 4 hours during the day. If she does this, this will decrease her stone forming risk b y 70%. Further, she should decrease sodium in her diet, which also will decrease her stone forming r isk. Otherwise, as long as she has no further issues, she may follow up as needed. CARLOTA/MARI Voice ID: [id number] Report ID: [id number]
[2023-01-27 16:17] VITALS: BP 141/69; O2SAT 95
== END 2023-01-27 12:30 | disposition home or self-care (01) ==
LOC: OR 07:03
PROVIDERS: ATTEND Urology
PROC: 0T768DZ Dilation of Right Ureter with Intraluminal Device, Via Natural or Artificial Opening Endoscopic (ICD-10-PCS; 2023-01-27)
PROC: 0TC68ZZ Extirpation of Matter from Right Ureter, Via Natural or Artificial Opening Endoscopic (ICD-10-PCS; principal; 2023-01-27 08:30)
DX: N20.1 Calculus of ureter (principal); E11.22 Type 2 diabetes mellitus with diabetic chronic kidney disease; I12.9 Hypertensive chronic kidney disease with stage 1 through stage 4 chronic kidney disease, or unspecified chronic kidney disease; N18.30 Chronic kidney disease, stage 3 unspecified; E66.9 Obesity, unspecified; Z68.27 Body mass index [BMI] 27.0-27.9, adult
CPT/HCPCS: 36415; 51610; 74450; 80048; 82360; 82947; 85025; 85610; 87086; 87088; 88300; J0690; J1100; J2001; J2250; J2371; J2405; J2704; J3010; J7030